=== PATIENT | male | born 1950 | race Hispanic/Latino ===

== ENCOUNTER 2024-09-06 13:36 | Inpatient (IN) | payer MEDICARE, SELFPAY ==
[2024-09-06] VITALS (17 sets, daily range): BP systolic 95–144; BP diastolic 34–78; PULSE 55–73; RESP 16–26; TEMP 36.3–36.8; O2SAT 95–100; BMI 22.5
--- NOTE | 2024-09-06 | ECHO_ITS ---
Patient Info Name: Bulmaro Cook Age: 74 years : 1950 Gender: Male Ht: 72 in Wt: 157 lbs BSA: 1.90 m2 HR: 59 bpm BP: 111 / 43 mmHg Heart Rhythm: Sinus Rhythm Technical Quality: Good Exam Date: 09/06/2024 4:00 PM Exam Location: Echo Lab Patient Status: Emergency Admit Date: 09/06/2024 Staff Ordering Physician: North Myers MD (samantha/estuardo) Air Traffic Controller: Lindsay Espana RDCS Attending Provider: Maximo Wynn MD Exam Type: CA echo doppler color flow Study Info Indications R07.9 - Chest pain, unspecified Complete two-dimensional, color flow and Doppler transthoracic echocardiogram is performed. Summary 1. Left ventricular chamber dimension is normal. 2. Left ventricular systolic function is normal, estimated at 55-60%. 3. There is mildly increased left ventricular wall thickness. 4. The left ventricular diastolic function is grade I diastolic dysfunction. 5. Right ventricular systolic function is normal. 6. Left atrial chamber dimension is mildly enlarged. 7. There is mild mitral valve regurgitation. 8. There is mild tricuspid valve regurgitation. 9. Left pleural effusion present. 10. There is moderate anterior pericardial effusion, posteriorly it is small. No echocardiographic evidence of tamponade. Left Ventricle Left ventricular chamber dimension is normal. Left ventricular systolic function is normal, estimated at 55-60%. There is mildly increased left ventricular wall thickness. Left ventricular septal wall motion is abnormal with septal motion related to bundle branch block. The left ventricular diastolic function is grade I diastolic dysfunction. Right Ventricle Right ventricular chamber dimension is normal. Right ventricular systolic function is normal. Left Atria Left atrial chamber dimension is mildly enlarged. Right Atria Right atrial chamber dimension is normal. Atrial Septum Intact interatrial septum visualized by color flow imaging. Aortic Valve The aortic valve is probable trileaflet. There is no aortic valve stenosis. There is no aortic valve regurgitation. There is mild aortic valve calcification. Pulmonic Valve The pulmonic valve is not well visualized. There is no pulmonic regurgitation. Mitral Valve There is mild mitral valve regurgitation. The mitral valve annulus is mildly calcified. Tricuspid Valve There is mild tricuspid valve regurgitation. Pericardium/Pleural Left pleural effusion present. There is moderate anterior pericardial effusion, posteriorly it is small. No echocardiographic evidence of tamponade. Inferior Vena Cava Dilated inferior vena cava with <50% collapse upon inspiration consistent with elevated right atrial pressure, 15 mmHg. Aorta The aortic root size at the sinus of Valsalva is normal. Left Ventricular Outflow Tract Name Value Normal LVOT 2D LVOT Diameter 2.0 cm LVOT Doppler LVOT Peak Gradient 4 mmHg LVOT Mean Gradient 2 mmHg LVOT VTI 17 cm LVOT VTI/AV VTI Ratio 0.5 LVOT Stroke Volume 53 ml LVOT CO 3.3 l/min LVOT CI 1.7 l/min/m2 Pulmonic Valve Name Value Normal RVOT Doppler RVOT Peak Gradient 4 mmHg PV Doppler PV Peak Gradient 7 mmHg Mitral Valve Name Value Normal MV Doppler MV Decel [place] 364 cm/s2 MV PHT 83 ms MV Area (PHT) 2.6 cm2 4.0-5.0 MV Diastolic Function MV E Peak Velocity 105 cm/s MV A Peak Velocity 109 cm/s MV E/A 1.0 MV Decel Time 287 ms MV Annular TDI MV E/e' (Septal) 17.0 <=8.0 MV E/e' (Lateral) 19.3 <=8.0 MV E/e' (Average) 18.2 Tricuspid Valve Name Value Normal TV Regurgitation Doppler TR Peak Velocity 232 cm/s TR Peak Gradient 21 mmHg Estimated PAP/RSVP RA Pressure 15 mmHg <=5 PA Systolic Pressure 36 mmHg <36 RV Systolic Pressure 36 mmHg <36 Aorta Name Value Normal Ascending Aorta Ao Root Diameter (MM) 3.1 cm Ao Root Diam Index (MM) 1.6 cm/m2 Aortic Valve Name Value Normal AV Doppler AV Peak Velocity 182 cm/s AV Peak Gradient 13 mmHg AV Mean Gradient 8 mmHg AV VTI 37 cm AV Area (Cont Eq VTI) 1.4 cm2 >=3.0 AV Area (Cont Eq Pranav) 1.7 cm2 AV Regurgitation 2D LVOT Area 3.0 cm2 Ventricles Name Value Normal LV Dimensions 2D/MM IVS Diastolic Thickness (2D) 0.9 cm 0.6-1.0 LVID Diastole (2D) 5.8 cm 4.2-5.8 LVIW Diastolic Thickness (2D) 0.9 cm 0.6-1.0 LVID Systole (2D) 4.1 cm 2.5-4.0 LVOT Diameter 2.0 cm LV Mass (2D Cubed) 199.10 g 88.00-224.00 LV Mass Index (2D Cubed) 105 g/m2 49-115 Relative Wall Thickness (2D) 0.29 LV Fractional Shortening/Ejection Fraction 2D/MM LV Fractional Shortening (2D) 29 % 25-43 LV EF (2D Teicholz) 55 % 52-72 LV Diastolic Volume (4C MOD) 99 ml LV EF (4C MOD) 62 % LV Diastolic Volume (2C MOD) 74 ml LV EF (2C MOD) 60 % LV Diastolic Volume (BP MOD) 86 ml 62-150 LV Diastolic Volume Index (BP MOD) 45 ml/m2 34-74 LV Systolic Volume (BP MOD) 35 ml 21-61 LV Systolic Volume Index (BP MOD) 18 ml/m2 11-31 LV EF (BP MOD) 59 % 52-72 LV Diastolic Length (4C) 8.1 cm LV Systolic Length (4C) 6.8 cm LV Stroke Volume (4C MOD) 62 ml Atria Name Value Normal LA Dimensions LA Dimension (MM) 5.1 cm 3.0-4.1 LA Volume (4C A-L) 61 ml LA Volume (BP A-L) 67 ml RA Dimensions RA Area (4C) 16.8 cm2 <=18.0 Report Signatures
--- NOTE | ~2024-09-06 | XR_ITS ---
XR chest 1V portable Ordering provider: Erasmo Greene MD History: 74 years Male with . CP/SHOB . Comparison: None. FINDINGS: MEDIASTINUM: The cardiac silhouette is slightly enlarged. Congestive eliza. LUNGS: No effusions or pneumothorax. Opacification in the left lung base suggestive of atelectasis ve rsus pneumonia. OTHER: No free air under the diaphragm. Degenerative changes of the spine. IMPRESSION: Left basilar atelectasis versus pneumonia. Reviewed, dictated and finalized at location A.
--- NOTE | ~2024-09-06 | US_ITS ---
Procedure: Ultrasound guided left thoracentesis. Indication: left pleural effusion Operating Physician: Darya Pacheco MD. Consent: After a detailed discussion of the procedure, risks, benefits and alternative treatment opti ons, informed consent was obtained from the patient. Time Out: A time out for procedure was performed in presence of Dr. Pacheco. The patient's identificati on was verified. Informed consent with agreement of procedure was reviewed. All necessary equipment w as available prior to procedure. Complications: None. Anesthesia: Local. Medication: 1% lidocaine locally. Procedure: Survey ultrasound of left chest was performed which was then prepped and draped in usual sterile fashion. Local anesthesia was administered. The pleural cavity was accessed and 0.6 L serous fluid was removed. The catheter was removed and sterile dressing was applied. Patient tolerated the p rocedure. The procedure was personally performed by Dr. Pacheco. Findings: Sonographic images demonstrate left pleural effusion. Impression: Successful ultrasound guided thoracentesis. Plan: Follow-up chest radiograph will be obtained. Reviewed, dictated and finalized at location A. Impression: Successful ultrasound guided thoracentesis. Plan: Follow-up chest radiograph will be obtained.
--- NOTE | ~2024-09-06 | XR_ITS ---
CHEST RADIOGRAPH CLINICAL HISTORY: post thora . COMPARISON: 09/06/2024 TECHNIQUE: Single portable view of the chest. FINDINGS The cardiomediastinal silhouette is enlarged, unchanged. Decreased left-sided pleural effusion when compared with prior study. The remainder of the lungs are clear. The left lung is fully inflated. IMPRESSION: Decreased left-sided pleural effusion, as detailed above. Reviewed, dictated and finalized at location A.
--- NOTE | ~2024-09-06 | XR_ITS ---
XR chest 1V portable Ordering provider: Hitesh Corley MD History: 74 years Male with . Pleural effusion f/u . Comparison: September 08, 2024 FINDINGS: MEDIASTINUM: The cardiac silhouette is not enlarged. LUNGS: No pneumothorax. Opacification in the left lung base is seen suggestive of atelectasis versus pneumonia. Blunting of the left costophrenic angle which may indicate minimal effusion. OTHER: No free air under the diaphragm. IMPRESSION: Left basilar atelectasis versus pneumonia. Reviewed, dictated and finalized at location A.
--- NOTE | ~2024-09-06 | CT_ITS ---
EXAMINATION: CTA chest PE protocol DATE: 09/06/2024 17:14 CDT INDICATION: Left-sided chest pain TECHNIQUE: Computed tomographic angiography (CTA) of the chest was performed with 100 mL Omnipaque-35 0 intravenous contrast. The dose-length product was 328.63 mGy-cm. Maximum intensity projection 3D-re constructions of the aorta and other arteries were constructed by the technologist on a separate work station. COMPARISON: None. FINDINGS/OBSERVATIONS: PULMONARY ARTERIES: No filling defect is identified within the main or proximal pulmonary artery. The main pulmonary artery is not enlarged. THORACIC AORTA: No aneurysmal dilatation or dissection is present. The great vessels are intact LUNGS: Large left-sided pleural effusion with adjacent compressive atelectasis, likely the source of patient's left-sided chest pain. Trace right-sided atelectasis. The remainder of the lungs are clear. MEDIASTINUM: No morphologically suspicious or pathologically enlarged lymph nodes are identified with in the mediastinum or bilateral axilla. BONES OF THE CHEST: No acute fracture. No significant degenerative disease. No lytic or blastic lesions. HEART: The heart is enlarged, without pericardial effusion. IMPRESSION: No pulmonary embolus. No thoracic aortic dissection. Large left-sided pleural effusion with adjacent compressive atelectasis. Reviewed, dictated and finalized at location A.
--- NOTE | 2024-09-06 13:43 | ECG_ITS ---
Test Date: 2024-09-06 13:49:35 Measurements Intervals [place] Rate: 58 P: -5 OH: 165 QRS: 40 QRSD: 163 T: 107 QT: 497 QTc: 491 Interpretive Statements SINUS BRADYCARDIA RIGHT BUNDLE BRANCH BLOCK CANNOT R/O SEPTAL INFARCT, AGE INDETERMINATE BASELINE ARTIFACT- I, II, III, AVR, AVL, AVF ABNORMAL ECG No previous ECG available for comparison Electronically Signed On 09-06-2024 14:50:41 CDT by Priyank Basilio D.O.
--- NOTE | 2024-09-06 13:46 | ED_ITS ---
HPI - Chest Pain General Chief Complaint: Chest Pain <Jackelin Menjivar PA-C - Last Filed: 09/06/24 18:56> Stated Complaint: Sent from Dialysis-low [id number] <Jackelin Menjivar PA-C - Last Filed: 09/06/24 18:56> Time Seen by Provider: 09/06/24 13:46 <Jackelin Menjivar PA-C - Last Filed: 09/06/24 18:56> Focused HPI: This is a 74 year old male that presents to the ER for chest pain. Reports he was recently admitted to another facility ([facility]) and ended up having to have a blood transfusion. Reports he went to dialysis today and his blood pressure dropped. Reports chest pain, headaches, dizziness, shortness of breath. GENERAL: Chronically ill-appearing, well-nourished, and in no acute distress. HEAD: Normocephalic, atraumatic. CHEST: Clear to auscultation. ?No respiratory distress. HEART: Regular rate and rhythm.? NEURO: ?Alert and oriented x3. Patient screened in triage and initial orders placed.? ?Additional care and disposition to be based upon?diagnostic testing and treatment. <Jackelin Menjivar PA-C - Last Filed: 09/06/24 18:56> Source: patient, family (daughter ) and old records reviewed <Maximo Wynn MD - Last Filed: 09/06/24 15:39> Limitations: language barrier and other (daughter translates) <Maximo Wynn MD - Last Filed: 09/06/24 15:39> History of Present Illness HPI narrative: 74 male with a history of ESRD on hemodialysis, diabetes recently discharged from [facility] in [place] a wk ago here with a complaints of left sided chest pain which is been ongoing for past 1 wk since he got discharged from the hospital , pain is constant mostly on the left , increase in pain with movement , While he was in the dialysis this morning after the 7 th lt started to feeing dizzy , and having chest pain.daughter also mentioned that he received blood transfusion while he was in the hospital . He had anemia work up while he was in the hospital and was told that he is not producing blood .denies any fever or chills Pt use to be functional untill 2 wks ago and since then he has been progressively getting worse. <Maximo Wynn MD - Last Filed: 09/06/24 15:39> MD complaint: chest pain <Maximo Wynn MD - Last Filed: 09/06/24 15:39> Onset (ago): week(s) (1) <Maximo Wynn MD - Last Filed: 09/06/24 15:39> Timing of current episode: constant <Maximo Wynn MD - Last Filed: 09/06/24 15:39> Pain location: left chest <Maximo Wynn MD - Last Filed: 09/06/24 15:39> Pain radiation: left arm <Maximo Wynn MD - Last Filed: 09/06/24 15:39> Severity: moderate <Maximo Wynn MD - Last Filed: 09/06/24 15:39> Quality: aching <Maximo Wynn MD - Last Filed: 09/06/24 15:39> Relieving factors: nothing <Maximo Wynn MD - Last Filed: 09/06/24 15:39> Exacerbating factors: movement <Maximo Wynn MD - Last Filed: 09/06/24 15:39> Context: recent illness <Maximo Wynn MD - Last Filed: 09/06/24 15:39> Related Data Home Medications: Home Medications ?Medication ?Instructions ?Recorded ?Confirmed ?Last Taken ?Type allopurinol 100 mg tablet See Rx Instructions .Route .COMPLEX 09/06/24 09/06/24 09/06/24 08:00 History 100 mg amiodarone 400 mg tablet 200 mg PO DAILY 09/06/24 09/06/24 09/06/24 08:00 History 200 mg apixaban 5 mg tablet (Eliquis) 5 mg PO Q12H 09/06/24 09/06/24 09/06/24 08:00 History 5 mg atorvastatin 20 mg tablet (Lipitor) 20 mg PO DAILY 09/06/24 09/06/24 09/05/24 22:00 History 20 mg calcitriol 0.25 mcg capsule 0.25 mcg PO BID 09/06/24 09/06/24 09/06/24 08:00 History 0.25 mcg doxazosin 4 mg tablet (Cardura) 4 mg PO QPM 09/06/24 09/06/24 09/05/24 22:00 History 4 mg ferrous sulfate 325 mg (65 mg 325 mg PO DAILY 09/06/24 09/06/24 09/06/24 08:00 History iron) tablet (iron) 325 mg furosemide 40 mg tablet 60 mg PO BID 09/06/24 09/06/24 09/06/24 08:00 History 60 mg metoprolol tartrate 25 mg tablet 25 mg PO DAILY 09/06/24 09/06/24 09/05/24 08:00 History 25 mg pantoprazole 40 mg tablet,delayed 40 mg PO QAM 09/06/24 09/06/24 09/06/24 08:00 History release (Protonix) 40 mg sodium bicarbonate 650 mg tablet 650 mg PO DAILY 09/06/24 09/06/24 09/06/24 08:00 History 650 mg vitamin B complex-vitamin C-folic 1 tablet PO DAILY 09/06/24 09/06/24 09/05/24 10:00 History acid 800 mcg chewable tablet 1 tablet (Dialyvite 800) <Jackelin Menjivar PA-C - Last Filed: 09/06/24 18:56> Allergies/Adverse Reactions: Allergies Allergy/AdvReac Type Severity Reaction Status Date / Time No Known Allergies Allergy Unverified 09/06/24 13:40 <Jackelin Menjivar PA-C - Last Filed: 09/06/24 18:56> Review of Systems 2 Review of Systems: All systems reviewed & are unremarkable except as noted in HPI and below <Maximo Wynn MD - Last Filed: 09/06/24 15:39> Constitutional: Constitutional: Reports no additional constitutional complaints <Maximo Wynn MD - Last Filed: 09/06/24 15:39> Eyes: Eyes: Reports no additional eye complaints <Maximo Wynn MD - Last Filed: 09/06/24 15:39> ENT: Reports system reviewed and no additional complaints, except as documented <Maximo Wynn MD - Last Filed: 09/06/24 15:39> Cardiovascular: Cardiovascular: Reports as per HPI <Maximo Wynn MD - Last Filed: 09/06/24 15:39> Respiratory: Respiratory: Reports as per HPI <Maximo Wynn MD - Last Filed: 09/06/24 15:39> Gastrointestinal: Gastrointestinal: Reports no additional gastrointestinal complaints <Maximo Wynn MD - Last Filed: 09/06/24 15:39> Musculoskeletal: Musculoskeletal: Reports no additional musculoskeletal complaints <Maximo Wynn MD - Last Filed: 09/06/24 15:39> Integumentary/Breasts: Skin/Breast: Reports system reviewed and no additional complaints, except as docu <Maximo Wynn MD - Last Filed: 09/06/24 15:39> Neurologic: Reports system reviewed and no additional complaints, except as documented <Maximo Wynn MD - Last Filed: 09/06/24 15:39> Psychiatric: Psychiatric: Reports no additional psychiatric complaints < Maximo Wynn MD - Last Filed: 09/06/24 15:39> PMFSH Past Medical History Medical History: Medical History (Updated 09/06/24 @ 18:55 by Jackelin Menjivar PA-C) History of end stage renal disease <Jackelin Menjivar PA-C - Last Filed: 09/06/24 18:56> Family History Family History: Family History (Updated 09/06/24 @ 18:37 by Jackelin Franco, ZACHARY) Father Myocardial infarct Sibling Myocardial infarct Mother Dementia <Jackelin Menjivar PA-C - Last Filed: 09/06/24 18:56> Social History Social History: Social History Smoking status: Former smoker Additional smoking assessment comments: quit many years ago Alcohol intake: never Substance use: never Do You Feel Safe in your Home?: Yes Lack of Transportation: No Lack of Food: Never True Current Housing: I Have Housing Concerned About Future Housing: No Difficulty Paying Gas/Electric Bills: No Difficulty Paying for Meds: No Currently Unemployed: No Education: High School Diploma/GED Difficulty w/ Childcare or Family Care: No Spiritual care concerns: No <Jackelin Menjivar PA-C - Last Filed: 09/06/24 18:56> Exam 2 Narrative: GENERAL: Well-appearing, thin, and in no acute distress. HEAD: Normocephalic, atraumatic. EYES: PERRLA and EOMI. NECK: Supple. CHEST: Clear to auscultation. No respiratory distress. HEART: Regular rate and rhythm. No murmur heard. Normal peripheral pulses. ABDOMEN: Soft, nontender, nondistended, normal active bowel sounds. EXTREMITIES: Normal range of motion. No edema. SKIN: Warm, dry, no rash. NEURO: No focal deficits. Alert and oriented x3. PSYCH: Normal mood and affect. <Maximo Wynn MD - Last Filed: 09/06/24 15:39> Course Course Emergency Course: Upon arrival his EKG showed minor ST elevation in the inferior leads did consult Dr. Myers ,,who was here to see the pt , does not require any acute intervention at this , i discusssed lab , CXR findings with pt and his daughter , agreed with admission. Notified Rebecca will accept the pt. <Maximo Wynn MD - Last Filed: 09/06/24 15:39> Vital Signs Vital signs: Vital Signs Temperature 97.5 F L 09/06/24 13:48 Pulse Rate 59 L 09/06/24 13:48 Respiratory Rate 16 09/06/24 13:48 Blood Pressure 95/35 L 09/06/24 13:48 Pulse Oximetry 98 09/06/24 13:48 Temperature 97.6 F 09/06/24 17:53 Pulse Rate 65 09/06/24 18:00 Respiratory Rate 18 09/06/24 17:53 Blood Pressure 107/34 L 09/06/24 17:53 Pulse Oximetry 99 09/06/24 17:53 Oxygen Delivery Room Air 09/06/24 13:59 <Jackelin Menjivar PA-C - Last Filed: 09/06/24 18:56> Vital Signs Temperature 97.5 F L 09/06/24 13:48 Pulse Rate 59 L 09/06/24 13:48 Respiratory Rate 16 09/06/24 13:48 Blood Pressure 95/35 L 09/06/24 13:48 Pulse Oximetry 98 09/06/24 13:48 Temperature 97.6 F 09/06/24 17:53 Pulse Rate 65 09/06/24 18:00 Respiratory Rate 18 09/06/24 17:53 Blood Pressure 107/34 L 09/06/24 17:53 Pulse Oximetry 99 09/06/24 17:53 Oxygen Delivery Room Air 09/06/24 13:59 <Maximo Wynn MD - Last Filed: 09/06/24 15:39> MDM - Chest Pain Differential Diagnosis Differential diagnosis: Likely unstable angina pectoris, atypical chest pain and st elevation myocardial infarction <Maximo Wynn MD - Last Filed: 09/06/24 15:39> Medical Records Data Attestation: I reviewed the patient's medical records. <Maximo Wynn MD - Last Filed: 09/06/24 15:39> Lab Data Attestation: I reviewed the patient's lab results. <Maximo Wynn MD - Last Filed: 09/06/24 15:39> Result diagrams: 09/06/24 14:13 09/06/24 14:13 <Jackelin Menjivar PA-C - Last Filed: 09/06/24 18:56> Labs: Lab Results 09/06/24 Range/Units 14:13 WBC 13.2 H (4.5-10.0) K/mm3 RBC 2.36 L (4.6-6.20) M/mm3 Hgb 7.2 L (14.0-18.0) g/dL Hct 23.2 L (42.0-52.0) % MCV 98.3 (80-100) fl MCH 30.5 (26-34) pg MCHC 31.0 L (32-36) g/dl RDW 17.3 H (11.5-14.5) % Plt Count 292 (150-375) k/mm3 MPV 9.4 (7.4-10.4) fl Immature Gran % (Auto) 0.9 H (0-0.5) % Neut % (Auto) 93.6 H (45.5-73.1) % Lymph % (Auto) 1.6 L (18.3-44.2) % [place] % (Auto) 3.6 (2.6-8.5) % Eos % (Auto) 0.1 (0-4.4) % Baso % (Auto) 0.2 (0.2-1.2) % Lymph # (Auto) 0.21 L (0.9-3.2) K/mm3 [place] # (Auto) 0.5 (0.1-0.6) K/mm3 Eos # (Auto) 0.0 (0-0.3) K/mm3 Baso # (Auto) 0.0 (0.0-0.1) K/mm3 Abs Immat Gran (auto) 0.12 H (0.00-0.031) K/mm3 Absolute Neuts (auto) 12.3 H (1.3-6.7) K/mm3 Absolute Nucleated RBC 0.000 (0.0-0.012) K/mm3 Band Neutrophils % 0 (0-6) % Nucleated RBC % 0.0 (0.0-0.2) % Platelet Estimate Adequate (Adequate) Clumped Platelets Present Hypochromasia 1+ Anisocytosis 2+ Schistocytes None seen PT 20.4 H (11.1-14.7) Seconds INR 1.7 APTT 37.9 H (22.3-36.8) Seconds Sodium 131 L (137-145) mmol/L Potassium 3.6 (3.4-5.0) mmol/L Chloride 91 L (98-107) mmol/L Carbon Dioxide 26 (22-30) mmol/L Anion Gap 14 H (4-12) mmol/L BUN 105 H (9-20) mg/dL Creatinine 5.64 H (0.7-1.3) mg/dL Estim Creat Clear Calc 10 ml/min Estimated GFR 10 L (59 - ) Glucose 167 H (65-110) mg/dL Calcium 8.8 (8.4-10.2) mg/dL Iron 24 L (49-181) ug/dL TIBC 212 L (265-497) ug/dL % Saturation Pending Ferritin Pending Total Bilirubin 0.8 (0.2-1.3) mg/dL AST 29 (17-59) U/L ALT 39 (6-50) U/L Alkaline Phosphatase 169 H (38-126) U/L Troponin I < 0.012 (0.000-0.034) ng/mL Total Protein 6.0 L (6.3-8.2) g/dL Albumin 3.4 L (3.5-5.1) g/dL Lipase 64 (23-300) U/L <Jackelin L. Menjivar, PA-C - Last Filed: 09/06/24 18:56> Lab Results 09/06/24 Range/Units 14:13 WBC 13.2 H (4.5-10.0) K/mm3 RBC 2.36 L (4.6-6.20) M/mm3 Hgb 7.2 L (14.0-18.0) g/dL Hct 23.2 L (42.0-52.0) % MCV 98.3 (80-100) fl MCH 30.5 (26-34) pg MCHC 31.0 L (32-36) g/dl RDW 17.3 H (11.5-14.5) % Plt Count 292 (150-375) k/mm3 MPV 9.4 (7.4-10.4) fl Immature Gran % (Auto) 0.9 H (0-0.5) % Neut % (Auto) 93.6 H (45.5-73.1) % Lymph % (Auto) 1.6 L (18.3-44.2) % [place] % (Auto) 3.6 (2.6-8.5) % Eos % (Auto) 0.1 (0-4.4) % Baso % (Auto) 0.2 (0.2-1.2) % Lymph # (Auto) 0.21 L (0.9-3.2) K/mm3 [place] # (Auto) 0.5 (0.1-0.6) K/mm3 Eos # (Auto) 0.0 (0-0.3) K/mm3 Baso # (Auto) 0.0 (0.0-0.1) K/mm3 Abs Immat Gran (auto) 0.12 H (0.00-0.031) K/mm3 Absolute Neuts (auto) 12.3 H (1.3-6.7) K/mm3 Absolute Nucleated RBC 0.000 (0.0-0.012) K/mm3 Band Neutrophils % 0 (0-6) % Nucleated RBC % 0.0 (0.0-0.2) % Platelet Estimate Adequate (Adequate) Clumped Platelets Present Hypochromasia 1+ Anisocytosis 2+ Schistocytes None seen PT 20.4 H (11.1-14.7) Seconds INR 1.7 APTT 37.9 H (22.3-36.8) Seconds Sodium 131 L (137-145) mmol/L Potassium 3.6 (3.4-5.0) mmol/L Chloride 91 L (98-107) mmol/L Carbon Dioxide 26 (22-30) mmol/L Anion Gap 14 H (4-12) mmol/L BUN 105 H (9-20) mg/dL Creatinine 5.64 H (0.7-1.3) mg/dL Estim Creat Clear Calc 10 ml/min Estimated GFR 10 L (59 - ) Glucose 167 H (65-110) mg/dL Calcium 8.8 (8.4-10.2) mg/dL Iron 24 L (49-181) ug/dL TIBC 212 L (265-497) ug/dL % Saturation Pending Ferritin Pending Total Bilirubin 0.8 (0.2-1.3) mg/dL AST 29 (17-59) U/L ALT 39 (6-50) U/L Alkaline Phosphatase 169 H (38-126) U/L Troponin I < 0.012 (0.000-0.034) ng/mL Total Protein 6.0 L (6.3-8.2) g/dL Albumin 3.4 L (3.5-5.1) g/dL Lipase 64 (23-300) U/L <Maximo Wynn MD - Last Filed: 09/06/24 15:39> Imaging Data Radiologist's impression: ITS Impressions Chest X-Ray 09/06/24 14:38 IMPRESSION: Left basilar atelectasis versus pneumonia. <Maximo Wynn MD - Last Filed: 09/06/24 15:39> ECG Data EKG #1: ECG completion date: 09/06/24 <Maximo Wynn MD - Last Filed: 09/06/24 15:39> ECG completion time: 13:49 <Maximo Wynn MD - Last Filed: 09/06/24 15:39> EKG Interpretation: bradycardia (58), sinus rhythm, normal QRS, NL axis and no acute changes (minor ST elevation in the inferior leads .) <Maximo Wynn MD - Last Filed: 09/06/24 15:39> Discharge Plan Discharge Clinical Impression: ESRD on dialysis Chest pain Qualifiers: Chest pain type: unspecified Qualified Code(s): R07.9 - Chest pain, unspecified Anemia Qualifiers: Anemia type: unspecified type Qualified Code(s): D64.9 - Anemia, unspecified <Jackelin Menjivar PA-C - Last Filed: 09/06/24 18:56> Patient Disposition: Still a Patient <Jackelin Menjivar PA-C - Last Filed: 09/06/24 18:56> Condition: Stable <Jackelin Menjivar PA-C - Last Filed: 09/06/24 18:56> Time of Disposition: 15:39 <Jackelin Menjivar PA-C - Last Filed: 09/06/24 18:56> 15:39 <Maximo Wynn MD - Last Filed: 09/06/24 15:39>
[2024-09-06 14:19] LABS: Basophils Percent Auto 0.2 % (0.2-1.2); Eosinophils Percent Auto 0.1 % (0-4.4); Hematocrit 23.2 % (42.0-52.0); Hemoglobin 7.2 g/dL (14.0-18.0); Immature Granulocyte Absolute 0.12 K/mm3 (0.00-0.031); Immature Granulocyte Percent A 0.9 % (0-0.5); Lymphocytes Absolute Auto 0.21 K/mm3 (0.9-3.2); Lymphocytes Percent Auto 1.6 % (18.3-44.2); Mean Corpuscular Hemoglobin 30.5 pg (26-34); Mean Corpuscular Volume 98.3 fl (80-100); Mean Platelet Volume 9.4 fl (7.4-10.4); Monocytes Absolute Auto 0.5 K/mm3 (0.1-0.6); Monocytes Percent Auto 3.6 % (2.6-8.5); Neutrophils Absolute Auto 12.3 K/mm3 (1.3-6.7); Neutrophils Percent Auto 93.6 % (45.5-73.1); Platelet Count Result 292 k/mm3 (150-375); Red Blood Count 2.36 M/mm3 (4.6-6.20); Red Cell Distribution Width 17.3 % (11.5-14.5); White Blood Count 13.2 K/mm3 (4.5-10.0)
[2024-09-06 14:30] LABS: Alanine Aminotransferase 39 U/L (6-50); Albumin Level 3.4 g/dL (3.5-5.1); Alkaline Phosphatase 169 U/L (38-126); Anion Gap 14 mmol/L (4-12); Aspartate Amino Transferase 29 U/L (17-59); Bilirubin,Total 0.8 mg/dL (0.2-1.3); Blood Urea Nitrogen 105 mg/dL (9-20); Calcium 8.8 mg/dL (8.4-10.2); Carbon Dioxide 26 mmol/L (22-30); Chloride 91 mmol/L (98-107); Estimated CRCL calculation 10 ml/min; Estimated Glomerular Filt Rate 10; Glucose 167 mg/dL (65-110); Lipase 64 U/L (23-300); Potassium 3.6 mmol/L (3.4-5.0); Sodium 131 mmol/L (137-145)
[2024-09-06 14:35] LABS: INR 1.7; Prothrombin Time 20.4 Seconds (11.1-14.7)
[2024-09-06 14:36] LABS: Partial Thromboplastin Time 37.9 Seconds (22.3-36.8)
[2024-09-06 14:40] LABS: Platelet Clumps Present; Platelet Estimate Adequate (Adequate)
[2024-09-06 14:41] LABS: Anisocytosis 2+; Hypochromasia 1+; Schistocytes None Seen
[2024-09-06 14:42] LABS: Band Neutrophils Percent 0 % (0-6)
[2024-09-06 14:43] LABS: Troponin I < 0.012 ng/mL (0.000-0.034)
--- NOTE | 2024-09-06 15:15 | P.CONCA_ITS ---
Assessment and Plan Assessment and plan (1) Chest pain: Code(s): R07.9 - Chest pain, unspecified Status: Acute Plan 74-year-old man with diabetes and ESRD on hemodialysis was brought in by his daughter for labile blood pressures who was also found to have chest pain Chest pain - his clinical presentation does not correlate very well with ischemia; however, he does have risk factors - recommend repeating his ECG and trending his troponin to peak - would hold off on heparinization for now given his previous severe anemia - would start asa 81mg PO daily after 324mg load - would also start atorvastatin 80mg qhs - obtain TTE History of Present Illness History of Present Illness Consult date/time: 09/06/24 15:15 Requesting physician: Jackelin Menjivar PA-C Consult reason: chest pain Reason For Visit: Sent from Dialysis-low [id number] Narrative: 74-year-old man with diabetes and ESRD on hemodialysis was brought in by his daughter for labile blood pressures. The patient's daughter who has been taking care of him provided Cook Islander translation. she states that hemodialysis is relatively new for the patient and he has been having very labile blood pressures. She also endorsed that the patient was recently admitted at [facility] where he was having chest pain that is also left-sided however now the chest pain is different in that it is on both sides of his chest. The chest pain significantly worsens on palpation. There are also significant concerns of shortness of breath with exertion as well as lightheadedness. Daughter states that the patient has previously been functional and is able to ambulate but since starting hemodialysis has been having chest pain, shortness of breath, as well as lightheadedness. There is also complain of lower extremity swelling. Daughter also explained that at [facility] there were significant concerns of how anemic the patient was and upon further questioning, the daughter does not know if the patient has any bleeding history however is under the impression that the patient has low production. Review of Systems 2 Cardiovascular: Cardiovascular: Reports as per HPI Respiratory: Respiratory: Reports as per HPI Meds Home Medications and Allergies Allergies Allergy/AdvReac Type Severity Reaction Status Date / Time No Known Allergies Allergy Unverified 09/06/24 13:40 Vital Signs Vital Signs - 24 hr 09/06/24 13:48 09/06/24 13:55 09/06/24 13:59 Temperature 36.4 C L Pulse Rate 59 L 59 L Respiratory Rate 16 26 H Blood Pressure 95/35 L 111/43 L Pulse Oximetry 98 96 100 Oxygen Delivery Room Air Room Air Exam 2 Const: Other: Ill-appearing HENMT: Mouth: Yes moist mucous membranes Eyes: EOM: EOMs intact bilaterally Neck: Neck: no JVD Resp: Effort & Inspection: normal respiratory effort Auscultation: clear to auscultation bilaterally Cardio: Rate: regular rate Rhythm: regular rhythm Heart sounds: Murmur heart sound present Other: tenderness across the precordium GI: GI Palp: Yes Soft to palpation Extrem: General: edema and pedal edema Results Labs and Meds 09/06/24 14:13 09/06/24 14:13 Lab results: Cardiac Enzymes 09/06/24 Range/Units 14:13 AST 29 (17-59) U/L Troponin I < 0.012 (0.000-0.034) ng/mL Coagulation 09/06/24 Range/Units 14:13 PT 20.4 H (11.1-14.7) Seconds APTT 37.9 H (22.3-36.8) Seconds CBC 09/06/24 Range/Units 14:13 WBC 13.2 H (4.5-10.0) K/mm3 RBC 2.36 L (4.6-6.20) M/mm3 Hgb 7.2 L (14.0-18.0) g/dL Hct 23.2 L (42.0-52.0) % Plt Count 292 (150-375) k/mm3 Lymph # (Auto) 0.21 L (0.9-3.2) K/mm3 Isabella # (Auto) 0.5 (0.1-0.6) K/mm3 Eos # (Auto) 0.0 (0-0.3) K/mm3 Baso # (Auto) 0.0 (0.0-0.1) K/mm3 Comprehensive Metabolic Panel 09/06/24 Range/Units 14:13 Sodium 131 L (137-145) mmol/L Potassium 3.6 (3.4-5.0) mmol/L Chloride 91 L (98-107) mmol/L Carbon Dioxide 26 (22-30) mmol/L BUN 105 H (9-20) mg/dL Creatinine 5.64 H (0.7-1.3) mg/dL Glucose 167 H (65-110) mg/dL Calcium 8.8 (8.4-10.2) mg/dL AST 29 (17-59) U/L ALT 39 (6-50) U/L Alkaline Phosphatase 169 H (38-126) U/L Total Protein 6.0 L (6.3-8.2) g/dL Albumin 3.4 L (3.5-5.1) g/dL Patient Weight 09/06/24 23:59 Weight 71.3 kg
--- OUTSIDE RECORDS SUMMARY | 2024-09-06 15:37 | XMS_ITS | Encounter Summary ---
Author Organization [facility] - [facility] Address [address] [place] [address] Care Team Providers Care Leather Goods Maker Name Role Phone CarlaaleshaChandler Kothari DO Primary Care Provide r Encounter Details Date Type Department Care Team (Late st Contact Info) Description 07/28/2024 [employer] Message Enc [facility] Medical [facility] [address] [address] Filippo [facility] Provider Orders Social History Tobacco Use Types Packs/Day Years Used Date Smoking Tobacco: Never Smokeless Tobacco: Never Alcohol Use Standard Drinks/Week Comments Never 0 (1 standard drink = 0.6 oz pur e alcohol) [facility] Utilities Answer Date Recorded In the past 12 months has [facility] No [employer], gas, oil, or water [employer] threatened to shut off services in your home? No 05/28/2024 Humiliation, Afraid, Rape, and Kick questionnair e Answer Date Recorded Within the last year, have y ou been afraid of your partner or ex-partner? No 05/28/2024 Within the last year, have y ou been humiliated or emotionally abused in other ways by your partner or ex-partner? No Within the last year, have y ou been kicked, hit, slapped, or otherwise physically hurt by your partner or ex-partner? No 05/28/2024 Within the last year, have y ou been raped or forced to have any kind of sexual activity by your partner or ex-partner? No 05/28/2024 Social Connection and Isolation Panel [NHANES] A nswer Date Recorded In a typical week, how many times do you talk on the phone with family, friends, or neighbors? Patient declined 10/10/2022 How often do you get togethe r with friends or relatives? Patient declined 10/10/2022 How often do you attend sabianist or pentecostalism serv ices? Patient declined 10/10/2022 Do you belong to any clubs o r organizations such as sabianist groups, unions, fraternal or athletic groups, or school groups? Patient declined 10/10/2022 How often do you attend meet ings of the clubs or organizations you belong to? Patient declined 10/10/2022 Are you , , di vorced, , never , or living with a partner? 10/10/2022 AUDIT-C Answer Date Recorded Q1: How often do you have a drink containing alcohol? Never 10/10/2022 Q2: How many drinks containi ng alcohol do you have on a typical day when you are drinking? Patient does not drink Q3: How often do you have si x or more drinks on one occasion? Never 10/10/2022 Overall Financial Resource Strain (CARDIA) Answe r Date Recorded How hard is it for you to pa y for the very basics like food, housing, medical care, and heating? Not hard at all 05/28/2024 PHQ-2 Answer Date Recorded Patient Health Questionnaire-2 Score 0 07/26/2024 [facility] of Occupat ional Health - Occupational Stress Questionnaire Answer Date Recorded Do you feel stress - tense, restless, nervous, or anxious, or unable to sleep at night because your mind is troubled all the time - these days? Not at all 10/10/2022 Exercise Vital Sign Answer Date Recorde d On average, how many days pe r week do you engage in moderate to strenuous exercise (like a brisk walk)? Patient declined On average, how many minutes do you engage in exercise at this level? Patient declined 10/10/2022 Hunger Vital Sign Answer Date Recorded Within the past 12 months, y ou worried that your food would run out before you got the money to buy more. Never true 05/28/20 24 Within the past 12 months, t he food you bought just didn't last and you didn't have money to get more. Never true 05/28/2024 PRAPARE - Transportation Answer Date Re corded In the past 12 months, has l ack of transportation kept you from medical appointments or from getting medications? No 05/03 In the past 12 months, has l ack of transportation kept you from meetings, work, or from getting things needed for daily living? No 05/28/2024 Housing Stability Vital Sign Answer [place] Recorded In the last 12 months, was t here a time when you were not able to pay the mortgage or rent on time? No 10/10/2022 In the last 12 months, how many places have you lived? 1 10/10/2022 In the last 12 months, was t here a time when you did not have a steady place to sleep or slept in a correction (including now)? No 10/10/2022 Housing Stability Vital Sign Answer [place] Recorded In the last 12 months, was t here a time when you were not able to pay the mortgage or rent on time? No 05/28/2024 In the past 12 months, how m any times have you moved where you were living? 0 05/28/2024 At any time in the past 12 m [facility], were you homeless or living in a correction (including now)? 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 Answer Date of Assessment Author Status No 05/28/2024 12:21 AM EXTRA HAND Gralewski, Derian M, RN Active * Do you have serious difficulty walking or climbing stairs? Answer Date of Assessment Author Status No 05/28/2024 12:21 AM Derian Villalobos RN Active * Do you have difficulty dressing or bathing? Answer Date of Assessment Author Status No 05/28/2024 12:21 AM Derian Villalobos RN Active * Because of a physical, mental, or emotional condition, do you have difficulty doing errands alone such as visiting a doctor's office or shopping? Answer Date of Assessment Author Status No 05/28/2024 12:21 AM Derian Villalobos RN Active documented as of this encounter Mental Status * Because of a physical, mental, or emotional condition, do you have serious difficulty concentrating, remembering, or making decisions? Answer Entry Date Author Status No 05/28/2024 12:21 AM Derian Villalobos RN Active documented in this encounter Plan of Treatment Upcoming Encounters Date Type Department Care Team (Late st Contact Info) Description 10/04/2024 11:00 AM CDT Office Visit [facility], [address] [address] Anika Kruger APRN [facility] [address] [place] [id number] 10/05/2024 9:45 AM CDT Office Visit [facility], [address] [place] [address] Chayo Segura PA 3 [facility] [address] [place], [place] [id number] documented as of this encounter Goals Goal Patient Goal Type Associated Problems Recent Progress Patient-Stated? Author Patient will return to prior living situation and remain independent in ADLs upon discharge from [facility] General Aline Russell RN Health - patient able to perform ADLs independently Lifestyle No El Vaughn RN Family - family caregiver with be involved in care transitions and discharge planning Lifestyle No Abby Eng, RN documented as of this encounter Visit Diagnoses Not on filedocumented in this encounter Additional Health Concerns Assessment Noted Time PHQ-9 Depression Total Score: 0 03/14/20 22 3:10 PM CDT documented as of this encounter Care Teams Leather Goods Maker Relationship Specialty Start Date End Date Chandler Geronimo DO [address] [place] [address] PCP - General FAMILY PRACTICE 05/29/21 documented as of this encounter
--- OUTSIDE RECORDS SUMMARY | 2024-09-06 15:37 | XMS_ITS | Encounter Summary ---
Author Organization [facility] - [facility] Address [address] [place] [address] Care Team Providers Care Live Hanger Name Role Phone CarlaaleshaCarleen Kotharirick Primary Care Provide r Encounter Details Date Type Department Care Team (Late st Contact Info) Description 09/01/2024 MyChart Message Enc [facility] Medical Group Multispecialty Care - [facility] [address] [facility], [facility] [address] [place] [address] David Hamilton MD 3 [facility] [place] [address] [place] [address] question Social History Tobacco Use Types Packs/Day Years Used Date Smoking Tobacco: Never Smokeless Tobacco: Never Alcohol Use Standard Drinks/Week Comments Never 0 (1 standard drink = 0.6 oz pur e alcohol) [facility] Utilities Answer Date Recorded In the past 12 months has e electric, gas, oil, or water company threatened to shut off services in your home? No 08/24/2024 Humiliation, Afraid, Rape, and Kick questionnair e Answer Date Recorded Within the last year, have y ou been afraid of your partner or ex-partner? No 08/24/2024 Within the last year, have y ou been humiliated or emotionally abused in other ways by your partner or ex-partner? No Within the last year, have y ou been kicked, hit, slapped, or otherwise physically hurt by your partner or ex-partner? No 08/24/2024 Within the last year, have y ou been raped or forced to have any kind of sexual activity by your partner or ex-partner? No 08/24/2024 Social Connection and Isolation Panel [NHANES] A nswer Date Recorded In a typical week, how many times do you talk on the phone with family, friends, or neighbors? Patient declined 10/10/2022 How often do you get togethe r with friends or relatives? Patient declined 10/10/2022 How often do you attend episcopalian or anglican serv ices? Patient declined 10/10/2022 Do you belong to any clubs o r organizations such as episcopalian groups, unions, fraternal or athletic groups, or [...] care, and heating? Not hard at all 08/24/2024 PHQ-2 Answer Date Recorded Patient Health Questionnaire-2 Score 0 07/26/2024 [facility] of Occupat ional Health - Occupational Stress [...] the money to buy more. Never true 08/25/19 25 Within the past 12 months, t he food you bought just didn't last and you didn't have money to get more. Never true 08/24/2024 PRAPARE - Transportation Answer Date Re corded In the past 12 months, has l ack of transportation kept you from medical appointments or from getting medications? No 08/01 In the past 12 months, has l ack of transportation kept you from meetings, work, or from getting things needed for daily living? No 08/24/2024 Housing Stability Vital Sign Answer [place] [...] place to sleep or slept in a fdc (including now)? No 10/10/2022 Housing Stability Vital Sign Answer [place] Recorded In the last 12 months, was t here a time when you were not able to pay the mortgage or rent on time? No 08/24/2024 In the past 12 months, how m any times have you moved where you were living? 0 08/24/2024 At any time in the past 12 m [facility], were you homeless or living in a fdc (including now)? 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 Answer Date of Assessment Author Status No 08/24/2024 10:42 PM Chandler Gipson RN Active * Do you have serious difficulty walking or climbing stairs? Answer Date of Assessment Author Status No 08/24/2024 10:42 PM Chandler Gipson RN Active * Do you have difficulty dressing or bathing? Answer Date of Assessment Author Status No 08/24/2024 10:42 PM CDT Chandler Chapman RN Active * Because of a physical, mental, or emotional condition, do you have difficulty doing errands alone such as visiting a doctor's office or shopping? Answer Date of Assessment Author Status No 08/24/2024 10:42 PM Chandler Gipson RN Active documented as of this encounter Mental Status * Because of a physical, mental, or emotional condition, do you have serious difficulty concentrating, remembering, or making decisions? Answer Entry Date Author Status No 08/24/2024 10:42 PM Chandler Gipson RN Active documented in this encounter Plan of Treatment Upcoming Encounters Date Type Department Care Team (Late st Contact Info) Description 10/04/2024 11:00 AM CDT Office Visit [facility] [address] [address] Anika Kruger APRN [facility] [address] [place] [address] 10/05/2024 9:45 AM CDT Office Visit [facility], [facility] [address] [place] [address] Chayo Segura PA 3 [facility] [address] [place] [address] documented as of this encounter Goals Goal Patient Goal Type Associated Problems Recent Progress Patient-Stated? Author Patient will return to prior living situation and remain independent in ADLs upon discharge from hospital General Aline Russell, RN Health - patient able to perform ADLs independently Lifestyle El Robbins, intelligence applications - family caregiver with be involved in care transitions and discharge planning Lifestyle No Abby Eng RN documented as of this encounter Visit Diagnoses Not on filedocumented in this encounter Additional Health Concerns Assessment Noted Time PHQ-9 Depression Total Score: 0 03/14/20 22 3:10 PM CDT documented as of this encounter Care Teams Live Hanger Relationship Specialty Start Date End Date Chandler Geronimo DO [address] [place] [address] PCP - General FAMILY PRACTICE 05/29/21 documented as of this encounter
--- OUTSIDE RECORDS SUMMARY | 2024-09-06 15:37 | XMS_ITS ---
LVOTpkPG 3 mmHg LVOTmnPG 2 mmHg LVOTpkVel 92.6 cm/s (70-110) LVOT SV 71 ml LVOT TVI 22.5 cm AV Forward Flow AV TVI 42.7 cm AV pkPG 13 mmHg AV pkVel 177 cm/s (100-170)* Area (TVI) 1.65 cm2 (3-5)* AV mnPG 7 mmHg Area (Pranav) 1.64 cm2 (3-5)* MV Regurg Flow MV TVI 163 cm MV pkPG 96 mmHg MV mnPG 64 mmHg MV pkVel 489 cm/s (60-130)* MV mnVel 374 cm/s TV Regurg Flow TV pkPG 27 mmHg TV pkVel 258 cm/s (30-70)* Aortic Valve Aortic Valve Ar 0.88 Aortic Valve Ve 0.52 <Electronic Signature> 08/26/2024 01:54 PM Ernst Good M.D. Ernst Good MD ECHO Final Res ult * (ABNORMAL) HEMOGLOBIN, GLYCOSYLATED (08/25/2024 6:44 AM CDT) Pathologist [facility] HGB A1C 5.9(H) <5.7 % 08/25/2024 9:03 AM CDT [facility] Comment: ADA GUIDELINES 2010 5.7 TO 6.4% INCREASED RISK OF DIABETES > OR = 6.5% CONSISTENT WITH DIABETES ESTIMATED AVG GLUCOSE 123 mg/dL 08/25/2024 9:03 AM CDT [facility] 08/25/2024 6:44 AM CDT Joann Sherman NP LABORATORY Final Result [facility] [address] [place] [address], * (ABNORMAL) PRO-BRAIN NATRIURETIC PEPTIDE (08/24/2024 8:14 PM CDT) Pathologist [facility] PRO-B TYPE NATRIURETIC PEPTIDE 4,591(H) <450 PG/ML 08/24/2024 9:14 PM CDT [facility] Comment: CUT POINTS ESTABLISHED BY INTERNATIONAL [employer] ON NT PROBNP (ICON) STUDY (2006). AGE INDEPENDENT: <300 PG/ML HAS A 99% NEGATIVE PREDICTIVE VALUE FOR EXCLUDING ACUTE CHF <50 YEARS: >450 PG/ML IS CONSISTENT WITH ACUTE CHF 50-75 YEARS: >900 PG/ML IS CONSISTENT WITH ACUTE CHF >75 YEARS: >1800 PG/ML IS CONSISTENT WITH ACUTE CHF IN PATIENTS WITH RENAL INSUFFICIENCY (GFR <60), >1200 PG/ML YIELDS A DIAGNOSTIC SENSITIVITY AND SPECIFICITY OF 89% AND 72% FOR ACUTE CHF. 08/24/2024 8:14 PM CDT Joann Sherman NP LABORATORY Final Result [facility] [address] [place] [address], * CT HEAD WO CON (08/24/2024 4:59 PM CDT) Anatomical Region Laterality Modality Head Computed Tomogra phy 08/24/2024 5:31 PM CDT Impressions 08/24/2024 5:33 PM CDT IMPRESSION: 1. No definite CT evidence of acute intracranial abnormality, as above. 2. Small vessel disease and volume loss. Ordered By: ISMAEL BRENNAN Interpreted By: Owen Hermosillo MD, 08/24/2024 5:31 PM Narrative 08/24/2024 5:33 PM CDT [facility] [address] [place], [place] [address] DATE: 08/24/2024 4:53 PM EXAMINATION: CT of the head CLINICAL HISTORY: Dizziness. Headache. COMPARISON: 06/14/2021 TECHNIQUE: CT examination of the head without contrast was performed. Axial and multiplanar images obtained. A dose lowering technique was used for this procedure, which may include, but is not limited to, dose reduction technique, automated exposure control, the use of iterative reconstruction, and ALARA (As Low As Reasonably Achievable) / Image Gently techniques. FINDINGS: No acute intracranial hemorrhage, extra-axial collections, intracranial mass effect, or midline shift. Patchy foci of hypodensity noted in the hemispheric white matter, likely due to small vessel disease. Atherosclerotic vascular calcifications. No definite CT evidence of acute territorial infarction, though MRI would be more sensitive. Mild volume loss with enlargement of the ventricles and extra-axial/subarachnoid spaces. Calvarium unremarkable. Mastoid air cells clear. Mucosal thickening noted in the paranasal sinuses. Right ocular staphyloma. Bilateral lens replacements. Procedure Note Owen Hermosillo MD - 08/24/[address] [address] DATE: 08/24/2024 4:53 PM EXAMINATION: CT of the head CLINICAL HISTORY: Dizziness. Headache. COMPARISON: 06/14/2021 TECHNIQUE: CT examination of the head without contrast was performed.Axial and multiplanar images obtained. A dose lowering technique was used for this procedure, which may include,but is not limited to, dose reduction technique, automated exposurecontrol, the use of iterative reconstruction, and ALARA (As Low AsReasonably Achievable) / Image Gently techniques. FINDINGS: No acute intracranial hemorrhage, extra-axial collections, intracranialmass effect, or midline shift. Patchy foci of hypodensity noted in thehemispheric white matter, likely due to small vessel disease.Atherosclerotic vascular calcifications. No definite CT evidence of acuteterritorial infarction, though MRI would be more sensitive. Mild volumeloss with enlargement of the ventricles and extra-axial/subarachnoidspaces. Calvarium unremarkable. Mastoid air cells clear. Mucosalthickening noted in the paranasal sinuses. Right ocular staphyloma.Bilateral lens replacements. IMPRESSION: 1. No definite CT evidence of acute intracranial abnormality, as above. 2. Small vessel disease and volume loss. Ordered By: ISMAEL BRENNAN Interpreted By: Owen Hermosillo MD, 08/24/2024 5:31 PM us Ismael Brennan MD CT Final Result * EKG Reading (08/24/2024 4:25 PM CDT) Only the most recent of2 resultswithin the time period is included. Narrative Ismael Brennan MD - 08/24/2024 4:25 PM CDT Ismael Brennan MD 08/24/2024 4:49 PM EKG Reading Date/Time: 08/24/2024 4:25 PM Performed by: Ismael Brennan MD Authorized by: Ismael Brennan MD Interpreted by ED physician Comparison: compared with previous ECG from 08/24/2024 Rhythm: atrial fibrillation Rate: tachycardic BPM: 116 Comments: Atrial fibrillation with RVR heart rate 116. Right bundle branch block. Normal axis nonspecific ST-T wave change. Compared to EKG earlier today. Rhythm strip ordered interpreted 1612 Atrial fibrillation. Heart rate 116. No ectopy us Ismael Brennan MD [facility] Final Result * ECG 12 lead (08/24/2024 4:12 PM CDT) Only the most recent of2 resultswithin the time period is included. 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1950 Requested By: ROSARIO MOCK Order Number: [id number] Reading MD: Irina Moody Measurements Intervals [place] Rate: 116 P: 0 [place]: 0 QRS: 65 QRSD: 154 T: 39 QT: 359 QTc: 500 Interpretive Statements ATRIAL FIBRILLATION WITH RAPID VENTRICULAR RESPONSE RIGHT BUNDLE BRANCH BLOCK [120+ ms QRS DURATION, UPRIGHT V1, 40+ ms S IN I/aVL/V4/V5/V6] Compared to ECG 08/24/2024 14:11:33 No significant changes Procedure Note Irina Moody MD - 08/25/[address] Test Date: 2024-08-24 Pat Name: JAYLEEN CAVAZOS Department: 41 Room: [place] 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 TROPONIN I HIGH SENSITIVITY 32 <79 ng/L 08/24/2024 4:48 PM CDT [facility] Comment: HIGH DOSES OF BIOTIN, TROPONIN-SPECIFIC AUTOANTIBODIES, AND ANTIBODY THERAPY CONTAINING HAMA MAY INTERFERE WITH THIS TEST RESULT. CORRELATION TO CLINICAL HISTORY AND PRESENTATION RECOMMENDED. 08/24/2024 4:08 PM CDT us Rosario SPARKS LABORATORY Final Result [facility] [address] [place] [address], [place] [phone] * LACTIC ACID W REFLEX (SEPSIS) (08/24/2024 3:36 PM CDT) LACTIC ACID VENOUS 0.8 0.4 - 2.0 MMOL/L 08/24/2024 4:15 PM CDT [facility] 08/24/2024 3:36 PM CDT us Ismael Brennan MD LABORATORY Final Result [facility] [address] [place] [address], [place] [phone] * PARTIAL THROMBOPLASTIN TIME,PTT (08/24/2024 3:36 PM CDT) PTT 30.4 25.1 - 36.5 SEC 08/24/2024 4:22 PM CDT [facility] 08/24/2024 3:36 PM CDT Ismael Brennan MD LABORATORY Final Result [facility] [address] [place] [address], [place] [phone] * (ABNORMAL) PROTIME/INR, VENOUS (08/24/2024 3:36 PM CDT) PROTIME 13.3(H) 10.2 - 12.9 SEC 08/24/2024 4:22 PM CDT [facility] INR 1.2 08/24/2024 4:22 PM CDT [facility] Comment: Recommended INR Therapeutic Goals: 2.0-3.0 Routine Therapy 2.5-3.5 Mechanical Prosthetic Valves (High Risk) 08/24/2024 3:36 PM CDT us Ismael Brennan MD LABORATORY Final Result [facility] [address] [place] [address], [place] [phone] * LIPASE (08/24/2024 3:36 PM CDT) LIPASE 32 13 - 75 UNITS/L 08/24/2024 4:11 PM CDT [facility] 08/24/2024 3:36 PM CDT Ismael Brennan MD LABORATORY Final Result Performing Organization Address [facility] Co de Phone Number [facility] [address] [place] [address], [place] [phone] * XR CHEST PORTABLE (08/24/2024 2:40 PM CDT) Anatomical Region Laterality Modality Chest Radiographic Marie ging 08/24/2024 2:42 PM CDT Impressions 08/24/2024 2:44 PM CDT =====IMPRESSION:===== Mild cardiomegaly, central pulmonary vascular congestion, and interstitial edema. Ordered By: ROSARIO MOCK Interpreted By: Davin Corral MD, 08/24/2024 2:42 PM Narrative 08/24/2024 2:44 PM CDT [facility] [address] [place], [place] [address] Examination: Chest x-ray 1 view Exam date/time: 08/24/2024 2:15 PM Reason For Exam: Chest pain Comparison: Chest radiograph 08/20/2024. Technique: Upright AP view of the chest demonstrated. Findings: Mild cardiomegaly, similar to prior. Mild central pulmonary vascular congestion. Atherosclerotic calcifications of the thoracic aorta. Mild interstitial edema seen at the left lung base. No focal pulmonary consolidation. No pleural effusions or pneumothorax identified. Procedure Note Davin Corral MD - 08/24/[address] [address] Examination: Chest x-ray 1 view Exam date/time: 08/24/2024 2:15 PM Reason For Exam: Chest pain Comparison: Chest radiograph 08/20/2024. Technique: Upright AP view of the chest demonstrated. Findings: Mild cardiomegaly, similar to prior. Mild central pulmonaryvascular congestion. Atherosclerotic calcifications of the thoracic aorta.Mild interstitial edema seen at the left lung base. No focal pulmonaryconsolidation. No pleural effusions or pneumothorax identified. =====IMPRESSION:===== Mild cardiomegaly, central pulmonary vascular congestion, and interstitialedema. Ordered By: ROSARIO MOCK Interpreted By: Davin Corral MD, 08/24/2024 2:42 PM us Rosario Mock PA GENERAL IMAGING Final Result * XR CHEST PA+LAT (08/20/2024 3:52 PM CDT) Anatomical Region Laterality Modality Chest Radiographic Marie ging 08/20/2024 5:56 PM CDT Impressions 08/20/2024 5:56 PM CDT IMPRESSION: No acute findings Ordered By: TIRSO COOPER Interpreted By: Minor Jo MD, 08/20/2024 5:56 PM Narrative 08/20/2024 5:56 PM CDT [facility] [address] [place], [place] [address] 2 VIEWS OF THE CHEST Clinical history: End-stage renal disease Comparison: May 28, 2024 2 views of the chest demonstrate the cardiac silhouette to be normal in size and appears stable. The pulmonary vessels appear normal. The Lungs are clear. No consolidations or effusions are seen. Procedure Note Minor Jo MD - 08/20/2024 [facility] [address] [place], [place] [address] 2 VIEWS OF THE CHEST Clinical history: End-stage renal disease Comparison: May 28, 2024 2 views of the chest demonstrate the cardiac silhouette to be normal insize and appears stable. The pulmonary vessels appear normal. The Lungsare clear. No consolidations or effusions are seen. IMPRESSION: No acute findings Ordered By: TIRSO COOPER Interpreted By: Minor Jo MD, 08/20/2024 5:56 PM us Tirso Cooper MD GENERAL IMAGING Final Result * (ABNORMAL) PTH - INTACT (08/20/2024 3:42 PM CDT) Only the most recent of2 resultswithin the time period is included. PTH INTACT 284.1(H) 18.4 - 80.1 PG/ML 08/20/2024 4:19 PM CDT [facility] 08/20/2024 3:42 PM CDT us Tirso Cooper MD LABORATORY Final Result [facility] [address] [facility] [place] [address], [place] [phone] * HEPATITIS B SURFACE AG, EIA (08/20/2024 3:42 PM CDT) HEPATITIS B SURFACE AG NON-REACTI VE NON-REACTI VE 08/20/2024 4:30 PM CDT [facility] 08/20/2024 3:42 PM CDT us Tirso Cooper MD LABORATORY Final Result [facility] [address] [place] [address], [place] [phone] * HEPATITIS B SURFACE ANTIBODY (08/20/2024 3:42 PM CDT) HEP B SURFACE AB NON-REACTI VE 08/20/2024 5:24 PM CDT [facility] 08/20/2024 3:42 PM CDT us Tirso Cooper MD LABORATORY Final Result [facility] [address] [place] [address], [place] [phone] * HEPATITIS B CORE ANTIBODY (08/20/2024 3:42 PM CDT) HEP B CORE TOTAL AB NON-REACTI VE NON-REACTI VE 08/20/2024 4:59 PM CDT [facility] 08/20/2024 3:42 PM CDT us Tirso Cooper MD LABORATORY Final Result [facility] [address] [place] [address], [place] [phone] * (ABNORMAL) CBC, AUTO, NO DIFF (08/20/2024 3:42 PM CDT) Only the most recent of3 resultswithin the time period is included. WBC 7.79 4.5 - 11.0 x10'3/uL 08/20/2024 3:52 PM CDT [facility] RBC 2.59(L) 4.70 - 6.10 x10'6/uL 08/20/2024 3:52 PM CDT [facility] HGB 7.7(L) 14.0 - 18.0 G/DL 08/20/2024 3:52 PM CDT [facility] HCT 23.8(L) 43.0 - 54.0 % 08/20/2024 3:52 PM CDT [facility] MCV 91.9 80.0 - 94.0 FL 08/20/2024 3:52 PM CDT [facility] MCH 29.7 27.0 - 31.0 PG 08/20/2024 3:52 PM CDT [facility] MCHC 32.4 32.0 - 36.0 G/DL 08/20/2024 3:52 PM CDT [facility] RDW 16.1(H) 11.5 - 14.5 % 08/20/2024 3:52 PM CDT [facility] PLT 262 130 - 400 x10'3/uL 08/20/2024 3:52 PM CDT [facility] MPV 9.5 9.3 - 12.2 FL 08/20/2024 3:52 PM CDT [facility] 08/20/2024 3:42 PM CDT us Tirso Cooper MD LABORATORY Final Result Performing Organization Address [facility]/ZIP Co de Phone Number [facility] [address] [place] [address], [place] [phone] * VITAMIN D, 25 [place] (07/26/2024 12:13 PM INSURANCE COMPLIANCE ANALYST) VITAMIN D 25 HYDROXY S/P/B 36 30 - 100 NG/ML 07/26/2024 2:07 PM INSURANCE COMPLIANCE ANALYST [facility] Comment: INTERPRETATION DEFICIENT <20 INSUFFICIENT 20-29 SUFFICIENT 30-100 07/26/2024 12:1 3 PM INSURANCE COMPLIANCE ANALYST Tirso Cooper MD LABORATORY Final Result Performing Organization Address [facility] Co de Phone Number [facility] [address] [place] [address], [place] [phone] * URIC ACID BLOOD (07/26/2024 12:13 PM INSURANCE COMPLIANCE ANALYST) URIC ACID 4.6 3.5 - 7.2 MG/DL 07/26/2024 2:16 PM INSURANCE COMPLIANCE ANALYST [facility] 07/26/2024 12:1 3 PM INSURANCE COMPLIANCE ANALYST Tirso Cooper MD LABORATORY Final Result Performing Organization Address City/[facility]/ZIP Co de Phone Number [facility] [address] [place] [address], [place] [phone] * (ABNORMAL) LIPID PANEL (10/12/2022 7:06 AM CDT) CHOLESTEROL 110 <200 MG/DL 10/12/2022 8:01 AM CDT [facility] TRIGLYCERIDES 134 <150 MG/DL 10/12/2022 8:01 AM CDT [facility] HDL 35(L) >40.0 MG/DL 10/12/2022 8:01 AM T [facility] LDL (CALCULATED) 48 <100 MG/DL 10/13/19 8:01 AM CDT [facility] NON HDL CHOLESTEROL 75 <130 MG/DL 10/12 8:01 AM T [facility] CHOL/HDL RATIO 3.1 0.0 - 4.5 10/12/2022 8:01 AM T [facility] VLDL CALCULATION 27 5 - 55 MG/DL 10/12/2022 8:01 AM T [facility] LIPID INTERPRETATION 10/12/2022 8:01 AM T [facility] Comment: [facility] CONCENSUS REPORT RECOMMENDATIONS: ADULT CHILD LOW RISK: CHOLESTEROL <200 <170 TRIGLYCERIDE <150 --- HDL >=60 --- LDL <100 <110 BORDERLINE: CHOLESTEROL 200-239 170-199 TRIGLYCERIDE 150-199 --- HDL 40-59 --- LDL 100-159 110-129 HIGH RISK: CHOLESTEROL >=240 >=200 TRIGLYCERIDE >=200 --- HDL <40 --- LDL >=160 >=130 10/12/2022 7:06 AM CDT Josseline Tabares MD LABORATORY Final Result [facility] [address] [place] [address], [place] [phone] * HEPATITIS PANEL,ACUTE (05/30/2021 1:20 PM INSURANCE COMPLIANCE ANALYST) HEPATITIS B SURFACE AG NON-REACTI VE NON-REACTI VE 05/30/2021 3:16 PM INSURANCE COMPLIANCE ANALYST [facility] HEP B CORE IGM NON-REACTI VE NON-REACTI VE 05/30/2021 3:16 PM INSURANCE COMPLIANCE ANALYST [facility] HAV IGM NON-REACTI VE NON-REACTI VE 05/30/2021 3:16 PM INSURANCE COMPLIANCE ANALYST [facility] HEPATITIS C AB NON-REACTI VE NON-REACTI VE 05/30/2021 3:16 PM INSURANCE COMPLIANCE ANALYST [facility] 05/30/2021 1:20 PM INSURANCE COMPLIANCE ANALYST us Tirso Cooper MD LABORATORY Final Result [facility] [address] [place] [address], from Last 3 Months or Most Recently Relevant to Health Maintenance Insurance [facility] MEDICAID T AETNA AETNA Advance Directives * Full Code (Latest Code Status on File) Date Activated Date Inactivated Comments 08/24/2024 7:40 PM 09/01/2024 4:42 PM * Full Code Date Activated Date Inactivated Comments 05/27/2024 10:51 PM 06/05/2024 7:14 PM * Full Code Date Activated Date Inactivated Comments 10/10/2022 7:40 PM 10/12/2022 6:19 PM * Full Code Date Activated Date Inactivated Comments 06/13/2021 1:13 AM 06/19/2021 5:26 PM * Full Code Date Activated Date Inactivated Comments 05/29/2021 11:22 PM 06/03/2021 3:03 PM Care Teams [employer] Relationship Specialty [place] [address] [place] [phone] PCP - General FAMILY PRACTICE 05/29/21
--- OUTSIDE RECORDS SUMMARY | 2024-09-06 15:37 | XMS_ITS ---
Author Organization [facility] ([facility]) Address [facility] [address] [address] Care Team Providers Care Olive Picker Name Role Phone Unavailable Unavailable Unavailable Allergies, Adverse Reactions, Alerts Allergy Name Allergy Type Status Severity Reaction(s) Onset Date Inactive Date Treating Clinician Comments No Known Allergies Allergy Active 2024-08 19:03:0 0 Medications Ordered Medication Name Filled Medication Name Start Date Stop Date Current Medication? Ordering Clinician Indication Dosage Frequency Signature (SIG) Comments Components Venofer 09-06 14:31: 56 Yes [id number] Number of Repeats Allowed: Frequency: Every monthDoses Ordered: Maintenanc e Dose 100 Milligram Route: Intravenou s Mircera 09-05 13:33: 09 Yes [id number] Number of Repeats Allowed: Frequency: GILBERT dosing, every three to four weeks Eliquis 09-03 18:59: 58 Yes Number of Repeats Allowed: Frequency: Two times a day Sodium Bicarbonate 09-02 17:15: 21 Yes Number of Repeats Allowed: Frequency: One time a day Ferrous Sulfate 09-02 17:14: 24 Yes Number of Repeats Allowed: Frequency: One time a day Pantoprazol e Sodium 09-02 17:13: 14 Yes Number of Repeats Allowed: Frequency: One time a day Cardura 09-02 17:12: 23 Yes Number of Repeats Allowed: Frequency: Once a day, at bedtime Atorvastati n Calcium 09-02 17:10: 22 Yes Number of Repeats Allowed: Frequency: Once a day, at bedtime Allopurinol 09-02 17:08: 52 Yes Number of Repeats Allowed: Frequency: Three times a week Lidocaine 09-02 17:07: 58 Yes Number of Repeats Allowed: Frequency: One time a day Metoprolol Tartrate 09-02 17:06: 05 Yes Number of Repeats Allowed: Frequency: Two times a day Vitamin V37-Dqsuv Acid 09-02 16:56: 55 Yes Number of Repeats Allowed: Frequency: Every morning Amiodarone HCl 09-02 16:56: 19 Yes Number of Repeats Allowed: Frequency: Every morning Problems This patient has no known problems. Procedures Procedure Date / Time Performed Performing Clinician Jasmina ce Details AV Fistula 2023-06-25 06:00:00 Access Site Upper Arm (Left) Access Use Start Date 2024-08-25 05:00:0 0 DIALYSIS TREATMENT INFORMATION Conventional Hemodialysis Date Type Treatment Start Date Treatment End Date Pre-Treatment Vitals Post-Treatment Vitals Weight Gain BFR DFR Actual UF Dialysis Access September 03, 2024 Home Hemod ialys is Train ing BP Sitting (Pre-Dialysis) 99/42 mmHg BP Sitting (Post-D ialysis ) 116/ 51 mmHg 250 mL/min 158.95420 [id number] mL/min BP Standing (Pre-Dialysis) 97/38 mmHg BP Standing (P ost-Dialysis) 106/37 mmHg Sitting Heart Rate Pre-Dialysis 62 BPM Sitting Heart Rate Post-Dialysis 62 BPM Standing Heart Rate Pre-Dialysis 64 BPM Standing Heart Rate Post-Dialysis 64 BPM Temperature Pre-Dialysis 97.6 degF Temperature Post -Dialysis 97.9 degF Weight Pre-Dialysis 73 kg DIALYSIS ORDER Dialysis Procedure Orders Type of Dialysis Procedure Order Order Date/Time Observations Home Hemodialysis Training September 03 Target Weight 73 kg Blood Flow Rate 250 mL/min Max UF Rate 10 mL/kg/hr Base Sodium Dialysate Base Sodium 140 mE q/L Therapy Volume 25 L Potassium Value Potassium 2 mEq/L Calcium Dialysate Calcium 3 mEq/L Lactate Lactate 45 mEq/L Access Concurrent No Arterial Access AV Fistula (Upper Ar m (Left)) Venous Access AV Fistula (Upper Ar m (Left)) Machine Type NxStage Arterial Needle Display JMS, SYSLOC MINI , 17G x 1 , SHARP , TWIN Venous Needle JMS, SYSLOC MINI, 17 G x 1 , SHARP , TWIN Cartridge NxStage CAR 170-C Dialyzer NxStage CAR 170-C 11 74 Results Adequacy Description Draw Date Result/Unit Status Ref Range Result Comments stdKt/V (DIAL) 2024-09-06 12:18:57 1.51 F nPCR 2024-09-06 12:18:57 N/A F spKt/V 2024-09-06 12:18:57 0.52 F eKt/V 2024-09-06 12:18:57 0.46 F CURRENT KRU 2024-09-06 12:18:57 F Residual kt/v 2024-09-06 12:18:57 N/A F KT/V PRESCRIBED 2024-09-06 12:18:57 F BSA MARIELLE 2024-09-06 12:18:57 1.88 sq m F VT (KT/V TX VOL) 2024-09-06 12:18:57 N/A F Total Kt/V 2024-09-06 12:18:57 N/A F WEIGHT - PRE DAY 1 2024-09-06 12:18:57 73 kg F stdKT/V Total 2024-09-06 12:18:57 1.51 F TBW (Nascimento) 2024-09-06 12:18:57 38.08 Liters F VM (KT/V MEAN VOL) 2024-09-06 12:18:57 N/A F Std Renal KT/V 2024-09-06 12:18:57 F BLOOD FLOW-QWB 2024-09-06 12:18:57 250 F PATIENT AGE 2024-09-06 12:18:57 74 Years F LENGTH OF DIALYSIS 2024-09-06 12:18:57 164 min F Dialyzer YULI 2024-09-06 12:18:57 1174 Calc F WEIGHT - POST DAY 1 2024-09-06 12:18:57 71.5 kg F WEIGHT (KG) 2024-09-06 12:18:57 73 kg F TOTAL HOURS/WEEK DIALYSIS 2024-09-06 12:18:57 2 hrs F DIALYZER FLOW-QD 2024-09-06 12:18:57 158 mL/min F PRESCRIBED DAYS/WEEK 2024-09-06 12:18:57 4 Day/Wk F HEIGHT IN INCHES 2024-09-06 12:18:57 69 Inches F AMPUTATE FACTOR 2024-09-06 12:18:57 0 F URR% 2024-09-06 12:18:56 36 % F Urea nitrogen [Mass/volume] in Serum or Plasma --post dialysis 2024-09-04 18:17:22 58 mg/dL F 9.0-23.0 KRU-UREA CLR UR 2024-09-04 16:50:20 0 mL/min F Creatinine [Mass/volume] in Serum or Plasma 2024-09-04 16:49:23 5.79 mg/dL F 0.7-1.3 Urea nitrogen [Mass/volume] in Serum or Plasma 2024-09-04 16:49:23 91 mg/dL F 9.0-23.0 COLLECTION TIME FOR URINE 2024-09-03 18:29:39 1440 min F TOTAL VOLUME-24 HR URINE 2024-09-03 18:29:39 0 mL F Anemia Description Draw Date Result/Unit Status Ref Range Result Comments TIBC 2024-09-05 04:33:40 200 ug/dL F 250.0-425.0 IRON SATURATION 2024-09-05 04:33:40 7 % F 21.0-49.0 Iron binding capacity.unsaturated [Mass/volume] in Serum or Plasma 2024-09-05 04:27:28 187 ug/dL F 75.0-360.0 Iron [Mass/volume] in Serum or Plasma 2024-09-05 04:27:28 13 ug/dL F 65.0-175.0 Ferritin [Mass/volume] in Serum or Plasma 2024-09-05 02:25:42 941 ng/mL F 22.0-322.0 HCT CALC HGBX3 2024-09-04 16:21:45 22.8 % F 42.0-52.0 MCHC [Mass/volume] by Automated count 2024-09-04 16:21:09 31 g/dL F 29.6-35.3 Erythrocyte distribution width [Ratio] by Automated count 2024-09-04 16:21:09 19 % F 11.0-15.0 MCH [Entitic mass] by Automated count 2024-09-04 16:21:09 30 pg F 25.9-34.2 MCV [Entitic volume] by Automated count 2024-09-04 16:21:09 96.7 fL F 80.0-100.0 Erythrocytes [#/volume] in Blood by Automated count 2024-09-04 16:21:09 2.54 x 10^6 cells/uL F 4.6-6.2 Platelets [#/volume] in Blood by Automated count 2024-09-04 16:21:09 301 x 10^3 cells/uL F 140.0-450.0 Hemoglobin [Mass/volume] in Blood 2024-09-04 16:21:09 7.6 g/dL F 14.0-18.0 Hematocrit [Volume Fraction] of Blood by Automated count 2024-09-04 16:21:09 24.6 % F 41.0-53.0 FluidBP Description Draw Date Result/Unit Status Ref Range Result Comments Sodium [Moles/volume] in Serum or Plasma 2024-09-05 04:27:28 133 mEq/L F 132.0-146.0 General Description Draw Date Result/Unit Status Ref Range Result Comments Chloride [Moles/volume] in Serum or Plasma 2024-09-05 04:27:28 95 mEq/L F 99.0-109.0 Aspartate aminotransferase [Enzymatic activity/volume] in Serum or Plasma 2024-09-04 16:49:23 28 U/L F 0.0-33.0 Alanine aminotransferase [Enzymatic activity/volume] in Serum or Plasma Aluminum [Mass/volume] in Serum or Plasma InfectionVaccination Description Draw Date Result/Unit Status Ref Range Result Comments Lymphocytes/100 leukocytes in Blood by Automated count 2024-09-04 16:21:09 4.9 % F Lymphocytes [#/volume] in Blood by Automated count 2024-09-04 16:21:09 504 Cells/uL F 620.0-3660.0 Monocytes [#/volume] in Blood by Automated count 2024-09-04 16:21:09 525 Cells/uL F 0.0-1100.0 Basophils [#/volume] in Blood by Automated count 2024-09-04 16:21:09 21 Cells/uL F 0.0-400.0 Eosinophils/100 leukocytes in Blood by Automated count 2024-09-04 16:21:09 1.5 % F Monocytes/100 leukocytes in Blood by Automated count 2024-09-04 16:21:09 5.1 % F Neutrophils [#/volume] in Blood by Automated count 2024-09-04 16:21:09 9096 Cells/uL F 2000.0-8800.0 Leukocytes [#/volume] in Blood by Automated count 2024-09-04 16:21:09 10.3 x 10^3 cells/uL F 4.0-11.0 Eosinophils [#/volume] in Blood by Automated count 2024-09-04 16:21:09 154 Cells/uL F 0.0-700.0 Basophils/100 leukocytes in Blood by Automated count 2024-09-04 16:21:09 0.2 % F Neutrophils/100 leukocytes in Blood by Automated count 2024-09-04 16:21:09 88.4 % F MineralBone Disorder Description Draw Date Result/Unit Status Ref Range Result Comments CA CORRECTED 2024-09-05 04:37:22 9.2 mg/dL F CA*PO4 CORRCTD 2024-09-05 04:33:40 66.5 Calc F 21.0-53.0 CA/PHOS PRODUCT 2024-09-05 04:33:40 61.9 Calc F 21.0-53.0 Calcium [Mass/volume] in Serum or Plasma 2024-09-05 04:27:29 8.6 mg/dL F 8.7-10.4 Phosphate [Mass/volume] in Serum or Plasma 2024-09-05 04:27:28 7.2 mg/dL F 2.4-5.1 Parathyrin.intact [Mass/volume] in Serum or Plasma 2024-09-04 18:52:25 146 pg/mL F 18.0-80.0 Alkaline phosphatase [Enzymatic activity/volume] in Serum or Plasma 2024-09-04 16:49:23 144 U/L F 46.0-116.0 Nutrition Description Draw Date Result/Unit Status Ref Range Result Comments Potassium [Moles/volume] in Serum or Plasma 2024-09-05 04:27:28 4.9 mEq/L F 3.5-5.5 A/G RATIO 2024-09-04 16:50:20 1.8 Calc F 1.0-2.5 GLOBULIN 2024-09-04 16:50:20 1.8 g/dL F 0.9-5.0 CHOL/HDL RATIO 2024-09-04 16:50:20 2.8 Calc F 3.3-5.0 VLDL-CHOL(CALC) 2024-09-04 16:50:20 7 mg/dL F 0.0-29.0 LDL-CHOLESTEROL 2024-09-04 16:50:20 42 mg/dL F 0.0-99.0 Cholesterol [Mass/volume] in Serum or Plasma 2024-09-04 16:49:23 77 mg/dL F 0.0-199.0 Protein [Mass/volume] in Serum or Plasma 2024-09-04 16:49:23 5 g/dL F 5.7-8.2 Albumin [Mass/volume] in Serum or Plasma by Bromocresol green (BCG) dye binding method 2024-09-04 16:49:23 3.2 g/dL F 3.4-4.8 Protein [Mass/volume] in Serum or Plasma 2024-09-04 16:49:23 36 mg/dL F 0.0-149.0 Cholesterol in HDL [Mass/volume] in Serum or Plasma 2024-09-04 16:49:23 28 mg/dL F 40.0-60.0 Lactate dehydrogenase [Enzymatic activity/volume] in Serum or Plasma 2024-09-04 16:49:23 176 U/L F 120.0-246.0 Bicarbonate [Moles/volume] in Serum or Plasma 2024-09-04 16:49:23 25 mEq/L F 20.0-31.0 Encounters No encounter information to report Plan of Treatment Planned Activity Provider Planned Date Details Commen ts Diagnostic Test Pending [facility] 2024-09-02 16:44:37 Ferritin [Mass/volume] in Serum or Plasma [code = 2276-4] Diagnostic Test Pending [facility] 2024-09-02 16:43:41 Aluminum [Mass/volume] in Serum or Plasma [code = 5574-9] Diagnostic Test Pending [facility] 2024-09-02 16:43:59 Creatinine [Mass/volume] in Serum or Plasma [code = 2160-0] Diagnostic Test Pending [facility] 2024-09-06 06:13:23 Hemoglobin [Mass/volume] in Blood [code = 718-7] Diagnostic Test Pending [facility] 2024-09-02 16:47:31 Sodium [Moles/volume] in Serum or Plasma [code = 2951-2] Diagnostic Test Pending [facility] 2024-09-03 06:25:04 Parathyrin.intact [Mass/volume] in Serum or Plasma [code = 2731-8] Diagnostic Test Pending [facility] 2024-09-03 06:25:03 Alanine aminotransferase [Enzymatic activity/volume] in Serum or Plasma [code = 1742-6] Diagnostic Test Pending [facility] 2024-09-03 18:50:47 Home Hemodialysis Training [code = OJK204]
--- OUTSIDE RECORDS SUMMARY | 2024-09-06 15:37 | XMS_ITS | Encounter Summary ---
Author Organization [facility] Address [address] [place] [address] Care Team Providers Care University Administrator Name Role Phone Chandler Geronimo DO Primary Care Provide r Reason for Visit * Reason Onset Date Comments Medication Information 09/01/2024 Encounter Details Date Type Department Care Team (Late st Contact Info) Description 09/01/2024 Telephone [facility] [address] [place] [address] Chayo Segura PA [address] [facility] [address] [place] [address] Medication Information Social History Tobacco Use Types Packs/Day Years Used Date Smoking Tobacco: Never Smokeless Tobacco: Never Alcohol Use Standard Drinks/Week Comments Never 0 (1 standard drink = 0.6 oz pur e alcohol) [facility] Utilities Answer Date Recorded In the [...] declined 10/10/2022 How often do you attend confucianist or jehovah's witness serv ices? Patient declined 10/10/2022 Do you belong to any clubs o r organizations such as confucianist groups, unions, fraternal or athletic groups, or [...] Recorded Patient Health Questionnaire-2 Score 0 07/26/2024 [facility] [place] of Occupat ional Health - Occupational Stress [...] place to sleep or slept in a nursing home (including now)? No 10/10/2022 Housing Stability Vital Sign Answer [place] e Recorded In the last 12 months, was t here a time when you were not able to pay the mortgage or rent on time? No 08/24/2024 In the past 12 months, how m any times have you moved where you were living? 0 08/24/2024 At any time in the past [address] [facility], were you homeless or living in a nursing home (including now)? 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 Answer Date of Assessment Author Status No 08/24/2024 10:42 PM CDT Chandler Chapman RN Active * Do you have difficulty [...] 10:42 PM CDT Chandler Chapman RN Active documented as of this encounter Mental Status * Because of a physical, mental, or emotional condition, do you have serious difficulty concentrating, remembering, or making decisions? Answer Entry Date Author Status No 08/24/2024 10:42 PM CDT Chandler Chapman RN Active documented in this encounter Progress Notes * Myrna Wilkerson - 09/06/2024 3:05 PM CDT CALLED OUT TO DAUGHTER - SCHEDULED F/U FOR 10/05/24 SHE ALSO STATED PATIENT HAS BEEN READMITTED TO [facility] [place] * Myrna Wilkerson - 09/02/2024 1:49 PM CDT Called out to schedule 1 mo fu- no answer and could not leave vm - will try again at later time * Sarahi Whyte RN - 09/01/2024 3:26 PM CDTAddended by: SARAHI WHYTE on: 09/01/2024 03:26 PM Modules accepted: Orders * Sarahi Whyte RN - 09/01/2024 3:22 PM CDT I informed Raymond patient was discharged today but anticoagulation was not addressed. GI said nobleed found and ok for AC from their perspective. Ok to start Eliquis 5 mg BID. Needs CBC in a weekafter starting the Eliquis. Needs 1 month follow up with me. Jazmine voiced understanding. Prescription sent to preferred pharmacy. Lab ordered. No further questions at this time. Jazmine is aware to call the office back if he is unable to afford the prescription for a different medication option. * CLARE Reagan - 09/01/2024 3:06 PM CDT Patient was discharged today but anticoagulation was not addressed. GI said no bleed found and ok for AC from their perspective. Ok to start Eliquis 5 mg BID. Needs CBC in a week after starting the Eliquis. Needs 1 month follow up with me. documented in this encounter Plan of Treatment Upcoming Encounters Date Type Department Care Team (Late st Contact Info) Description 10/04/2024 11:00 AM CDT Office Visit [facility] [address] [place] [address] Anika Kruger APRN [address] [facility] [place], [place] [address] 10/05/2024 9:45 AM CDT Office Visit [facility] [address] [place] [address] Chayo Segura PA [address] [facility] [address] [place] [address] Scheduled Orders Name Type Priority Associated Diagnoses Orde r Schedule CBC W/DIFF AUTOMATED Lab Routine Atrial fibrillation ([facility] HHS/HCC) Expected: 09/08/2024 (Approximate), Expires: 09/01/2025 documented as of this encounter Goals Goal Patient Goal Type Associated Problems Recent Progress Patient-Stated? Author Patient will return to prior living situation and remain independent in ADLs upon discharge from hospital General No Aline Krishna, RN Health - patient able to perform ADLs independently Lifestyle No El Vaughn RN Family - family caregiver with be involved in care transitions and discharge planning Lifestyle No Abby Eng RN documented as of this encounter Visit Diagnoses Diagnosis Atrial fibrillation with RVR ([facility])- Primary Atrial fibrillation Atrial fibrillation ([facility]) Atrial fibrillation documented in this encounter Additional Health Concerns Assessment Noted Time PHQ-9 Depression Total Score: 0 03/14/20 22 3:10 PM CDT documented as of this encounter Care Teams University Administrator Relationship Specialty Start Date End Date Chandler Geronimo DO [address] [place] [id number] PCP - General FAMILY PRACTICE 05/29/21 documented as of this encounter
--- OUTSIDE RECORDS SUMMARY | 2024-09-06 15:37 | XMS_ITS | Clinical Summary ---
Author Organization [facility] Address [address] [place] [address] Care Team Providers Care Set Up And Lay Out Inspector Name Role Phone Unavailable Primary Care Provider Unavailabl e Source Comments [facility],non-owned Affiliates and Associated Physician Practices is amultiple site organization consisting of ambulatory clinics and hospital sitesin [place], [place], [place] and [place]. This disclosure is being madepursuant to the Care Everywhere program and may not contain all information available regarding this patient. Last updated 18.[facility] Allergies No known active allergies Medications Be aware that medications may not be up to date on this document. Always verify current medications with the patient. No known medications Active Problems Problem Noted Date Diagnosed Date Injury, other and unspecified, hand, except fing er 06/17/2011 Elevated troponin 11/20/2010 Syncope and collapse 11/19/2010 Immunizations Name Administration Dates Next Due DT 06/17/2011 Social History Tobacco Use Types Packs/Day Years Used Date Smoking Tobacco: Former Smokeless Tobacco: Never Comments:QUIT SMOKING 2 NORA HS AGO.DID SMOKE 1 PK A DAY Alcohol Use Standard Drinks/Week Comments No 0 (1 standard drink = 0.6 oz pur e alcohol) Sex and Gender Information Value Date Recorded Sex Assigned at Not on file Gender Identity Not on file Sexual Orientation Not on file Last Filed Vital Signs Vital Sign Reading Time Taken Comments Blood Pressure 113/89 06/17/2011 5:40 PM ONLINE MARKETING ANALYST Pulse 67 06/17/2011 9:53 PM ONLINE MARKETING ANALYST Temperature 36.3 C (97.3 F) 06/17/2011 5:40 PM ONLINE MARKETING ANALYST Respiratory Rate 16 06/17/2011 5:40 PM ONLINE MARKETING ANALYST Oxygen Saturation 95% 06/17/2011 9:53 PM ONLINE MARKETING ANALYST Inhaled Oxygen Concentration - - Weight 91.6 kg (202 lb) 06/17/2011 5:40 PM ONLINE MARKETING ANALYST Height 177.8 cm (5' 10 ) 06/17/2011 5:40 PM ONLINE MARKETING ANALYST Body Mass Index 28.98 06/17/2011 5:40 PM ONLINE MARKETING ANALYST Plan of Treatment Health Maintenance Due Date Last Done Comments HEPATITIS C SCREENING 12/27/1967 PNEUMOCOCCAL VACCINE 50+ (1 of 1 - PCV) 12/31/1997 ZOSTER VACCINE (1 of 2) 12/31/1997 DTAP/TDAP/TD VACCINES (2 - Tdap) 06/17/2021 06/17/19 12 Respiratory Syncytial Virus (RSV) Vaccine Pt: or over 60 yrs (1 - 1-dose 75+ series) 12/31/2022 COVID-19 VACCINE ( - 2023-2 5 season) 2024 DEPRESSION SCREENING 06/02/2024 INFLUENZA VACCINE (Season Ended) 2025 HEPATITIS B VACCINE Aged Out No longe r eligible based on patient's age to complete this topic HIB VACCINE Aged Out No longer eligi ble based on patient's age to complete this topic HPV VACCINE Aged Out No longer eligi ble based on patient's age to complete this topic MENINGOCOCCAL (Group B) VACC INE SHARED DECISION-MAKING Aged Out No longer eligibl e based on patient's age to complete this topic MENINGOCOCCAL GROUPS A/C/Y/W VACCINE Aged Out No longer eligible b ased on patient's age to complete this topic Advance Directives * FULL RESUSCITATION (Latest Code Status on File) Date Activated Date Inactivated Comments 11/20/2010 1:48 PM 11/21/2010 5:57 AM
--- OUTSIDE RECORDS SUMMARY | 2024-09-06 15:37 | XMS_ITS | Encounter Summary ---
Author Organization [facility] Address [address] [place] [address] Care Team Providers Care Colors Custodian Name Role Phone FelicianoCarleen Kotharirick Primary Care Provide r Reason for Referral * Surgical (Routine) - New Request Specialty Diagnoses / Procedures Referred By Contac t Referred To Contact Diagnoses ESRD (end stage renal disease) on dialysis ([facility]) Procedures Case request operating room: BRACHIAL CEPHALIC ARTERIOVENOUS FISTULA OR TRANSPOSITION BASILIC VEIN (LEFT ARM) Layton Herrera MD [facility]. [id number] [place] [address] Phone: tel: fax: Referral ID Status Reason Start Date Expiration Date V isits Requested Visits Authorized [id number] New Request 06/01/2024 06/01/2025 1 1 PRESIDENT SALES Encounter Details Date Type Department Care Team (Late st Contact Info) Description 06/01/2024 Prep for Procedure [facility] [address] [place] [address] Layton Herrera MD [facility]. [facility] [address] [place] [address] Social History Tobacco Use Types Packs/Day Years Used Date Smoking Tobacco: Never Smokeless Tobacco: Never Alcohol Use Standard Drinks/Week Comments Never 0 (1 standard drink = 0.6 oz pur e alcohol) [facility] Utilities Answer Date Recorded In the past 12 months has th e electric, gas, oil, or water company [...] declined 10/10/2022 How often do you attend christian or jew serv ices? Patient declined 10/10/2022 Do you belong to any clubs o r organizations such as christian groups, unions, fraternal or athletic groups, or [...] Date Recorded Patient Health Questionnaire-2 Score 0 01/05/2024 [facility] [place] [facility] - Occupational Stress [...] place to sleep or slept in a [facility]p (including now)? No 10/10/2022 Housing Stability Vital Sign Answer [place] e Recorded In the last 12 months, was t here a time when you were not able to pay the mortgage or rent on time? No 05/28/2024 In the past 12 months, how m any times have you moved where you were living? 0 05/28/2024 At any time in the past 12 m [facility], were you homeless or living in a m[facility]p (including now)? 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 [address] [place] [address] 10/05/2024 9:45 AM CDT Office Visit [facility] [address] [place] [address] Chayo Segura PA 3 [facility] [address] [place] [address] Scheduled Orders Name Type Priority Associated Diagnoses Orde r Schedule Case request operating room: BRACHIAL CEPHALIC ARTERIOVENOUS FISTULA OR TRANSPOSITION BASILIC VEIN (LEFT ARM) Case Request Routine ESRD (end stage renal disease) on dialysis ([facility]) Once for 1 Occurrences starting 06/01/2024 until 06/01/2024 documented as of this encounter Goals Goal [...] as of this encounter Visit Diagnoses Diagnosis ESRD (end stage renal disease) on dialysis ([facility])- Primary End stage renal disease documented in this encounter Additional Health Concerns Assessment Noted Time PHQ-9 Depression Total Score: 0 03/14/20 22 3:10 PM CDT documented as of this encounter Care Teams Colors Custodian Relationship Specialty Start Date End Date Chandler Geronimo DO [address] [facility] [place] [id number] PCP - General FAMILY PRACTICE 05/29/21 documented as of this encounter
--- OUTSIDE RECORDS SUMMARY | 2024-09-06 15:37 | XMS_ITS | Continuity of Care Document ---
Author Organization [facility] Address [address] [place] [address] Phone Care Team Providers Care Civil Lawyer Name Role Phone Chandler John DO Unavailable Unava ilable Allergies, Adverse Reactions, Alerts Substance Reaction Status Criticality No Known Allergies Active No Inform ation Medications Medication Instructions Dosage Effective Dates (start - stop) Status Comments Retacrit 10,000 unit/mL injection solution inject 1mL by subcutaneous route three times a week - Active Eliquis 5 mg tablet take 1 tablet by oral route 2 times every day 5 MG - Active amiodarone 200 mg tablet take 1 tablet by oral route every day 200 MG - Active Renal Caps 1 mg capsule take 1 capsule by oral route every day 1.00 capsule - Active calcium 500 mg (as calcium carbonate 1,250 mg) tablet Take 1 tablet by oral route three times a day - Active lidocaine 4 % topical patch Place 1 patch onto skin daily. Remove and discard patch within 12 hrs. - Active metoprolol tartrate 25 mg tablet take 1 tablet by oral route 2 times every day 25 MG - Active furosemide 40 mg tablet Take 3 tablets by mouth 2 times a day, 3 days a week. Take 3 tablets 2 times a day on non-dialysis days Friday, Friday, , and Friday. - Active sodium bicarbonate 650 mg tablet take 1 tablet by oral route daily - Active allopurinol 100 mg tablet take 1 tablet by oral route every Mon, Wed, and Fri after hemodialysis - Active calcitriol 0.25 mcg capsule take 2 capsules by oral route every day - Active pantoprazole 40 mg tablet,delayed release take 1 tablet by oral route every day 40 MG - Active atorvastatin 20 mg tablet TAKE 1 TABLET BY MOUTH EVERY DAY - Active FERROUS SULFATE 324MG EC TABS RED TAKE 1 TABLET BY MOUTH ONCE DAILY - Active Vitamin D3 25 mcg (1,000 unit) capsule take 1 by Oral route once 1 - Active Alcohol Pads Use pad to cleanse skin before checking blood sugar and before administering insulin - Active Unifine Pentips Maxflow 30 gauge x 3/16 needle Use with Lantus Solostar pen - Active doxazosin 2 mg tablet take 2 tablet by oral route every day 4 MG - Active Contour Next EZ Meter kit Use as directed to check blood sugar - Active Contour Next Test Strips place 1 strip into glucometer as directed to test blood sugar 4 times a day - Active lancets 30 gauge Use lancet to test blood sugar 4 times a day - Active Sharps Container - Active Procedures Procedure Date DSCG MED/CURRENT MED MERGE DSCG MED/CURRENT MED MERGE Transitional Care- First 7 Days Of Disch arge BODY MASS INDEX DOCD SYST BP LT 130 MM HG DIAST BP < 80 MM HG FALL RISK ASSESSMENT DOC'D PRES/ABSN URINE INCON ASSESS Pt inelig neg scrn depres PNEUMOVAX ADM MEDICARE Pneumococcal Conjugate Vaccine (PCV20) D Admin influenza virus vac INFLUENZA VACCINE, 0.5mL DOSAGE; FLUZONE OFFICE KEGJE-IUU-BUVKHROW BODY MASS INDEX DOCD SYST BP LT 130 MM HG DIAST BP < 80 MM HG BASIC METABOLIC PANEL(BMP) HEMOGLOBIN A1C HGA1C, GLYCO LIPID PANEL MICROALBUMIN, QN (URINE) CREATININE, (U-R) PSA, TOTAL URINALYSIS W MICROSCOPIC (UA) ROUTINE VENIPUNCTURE [place] OFFICE WTALK-IJO-NUCDRVUT Visit Complexity Inherent To E/M 2023 BODY MASS INDEX DOCD SYST BP LT 130 MM HG DIAST BP < 80 MM HG FALL RISK ASSESSMENT DOC'D PRES/ABSN URINE INCON ASSESS Pt inelig neg scrn depres Admin influenza virus vac FLU VACC 4 BINH 0.5mL DOSAGE OFFICE OBRHO-YWH-SATLCGJT BODY MASS INDEX DOCD SYST BP LT 130 MM HG DIAST BP < 80 MM HG No Show Appt Charge DSCHRG MED/CURRENT MED MERGE OFFICE VCZXT-RPX-MARS BODY MASS INDEX DOCD SYST BP LT 130 MM HG DIAST BP < 80 MM HG Transitional Care- First 7 Days Of Disch arge CBC, INC PLATELETS AND DIFFERENTIAL COMPREHEN METABOLIC PANEL CMP HEMOGLOBIN A1C HGA1C, GLYCO LIPID PANEL MICROALBUMIN, QN (URINE) CREATININE, (U-R) PSA, TOTAL, SCREENING MEDICARE ONLY PARATHYROID HORMONE (PTH) VITAMIN D, 25-HYDROXY ROUTINE VENIPUNCTURE IL OFFICE [id number]-[id number]-[id number] BODY MASS INDEX DOCD SYST BP GE 130 - 139MM HG DIAST BP < 80 MM HG OFFICE [id number]-FXR-WCVSOPLF BODY MASS INDEX DOCD SYST BP GE 130 - 139MM HG DIAST BP < 80 MM HG Pt inelig neg scrn depres FALL RISK ASSESSMENT DOC'D PRES/ABSN URINE INCON ASSESS OFFICE CDNCD-BQI-FIREHEIB BODY MASS INDEX DOCD SYST BP LT 130 MM HG DIAST BP < 80 MM HG HEMOGLOBIN A1C HGA1C, GLYCO URINALYSIS, REFLEX (UA) ROUTINE VENIPUNCTURE OFFICE ROXBI-JKU-BGTFOYEC BODY MASS INDEX DOCD SYST BP LT 130 MM HG DIAST BP < 80 MM HG DSCHRG MED/CURRENT MED MERGE Transitional Care- First 7 Days Of Disch arge BODY MASS INDEX DOCD SYST BP >= 140 MM HG6 IT DIAST BP < 80 MM HG COVID-19, Amplified Probe Technique DSCHRG MED/CURRENT MED MERGE BASIC METABOLIC PANEL(BMP) CBC, INC PLATELETS AND DIFFERENTIAL ROUTINE VENIPUNCTURE Transitional Care- First 7 Days Of Disch arge BODY MASS INDEX DOCD SYST BP LT 130 MM HG DIAST BP < 80 MM HG OFFICE TEODV-WSS-JCERHSYO COMPREHEN METABOLIC PANEL CMP HEMOGLOBIN A1C HGA1C, GLYCO LIPID PANEL ROUTINE VENIPUNCTURE Admin influenza virus vac FLU VACC 4 BINH 0.5mL DOSAGE OFFICE [id number]-[id number]-DJEOQMQP BODY MASS INDEX DOCD SYST BP GE 130 - 139MM HG DIAST BP < 80 MM HG FALL RISK ASSESSMENT DOC'D PRES/ABSN URINE INCON ASSESS Pt inelig neg scrn depres CBC, INC PLATELETS AND DIFFERENTIAL COMPREHEN METABOLIC PANEL CMP LIPID PANEL PSA, TOTAL, SCREENING MEDICARE ONLY ROUTINE VENIPUNCTURE OFFICE NCXVH-GTU-ZAMAGUEI BODY MASS INDEX DOCD SYST BP GE 130 - 139MM HG DIAST BP < 80 MM HG HEMOGLOBIN A1C HGA1C, GLYCO CBC, INC PLATELETS AND DIFFERENTIAL COMPREHEN METABOLIC PANEL CMP 9 HEMOGLOBIN A1C HGA1C, GLYCO LIPID PANEL ROUTINE VENIPUNCTURE OFFICE [id number]-QMH-[id number] BODY MASS INDEX DOCD SYST BP LT 130 MM HG DIAST BP < 80 MM HG PSA, TOTAL, SCREENING MEDICARE ONLY Advance Directives Directive Yes / No Effective Date File Name Life Support Not Answered N/A N/A Intubation Not Answered N/A N/A Antibiotics Not Answered N/A N/A IV Fluid Support Not Answered N/A N/A Tube Feed Not Answered N/A N/A Other Directive N/A N/A WARNING:The information contained in this section is historical and is provided for information only and does not constitute a legal document or any assurance that the information is still accurate. Please verify the information with the lewis of the legal document before using it for clinical purposes. Encounters Encounter Description Practice Location Reason(s) For Visit Diagnoses Date Provider Providers Copied on Encounter [facility], [address], [place], [place], [address] , [place] tel:[phone] [facility] No Information 5 CarlaaleshaShailesh Durantrick. [address] [place] [address], [id number], [place]. tel:[phone] [facility], [address], [place], [place], [address] , [place] tel: [phone] [facility] No Information 5 CarlaaleshaShailesh Durantrick. [address] [place] [address], [id number], [place]. tel:[phone] Referring Provider: Chandler castro, [address] [place] [address], [address] . tel:[phone] [facility], [address], [place], [place], [address] , tel: [phone] [facility] No Information 5 BrauliozebShailesh Arteaga. [address] [place] [address], [id number], [place]. tel:[phone] [facility], [address], [place], [place], [address] , [place] tel: [phone] [facility] No Information 5 BrauliozebShailesh Arteaga. [address] [place] [address], [id number], [place]. tel:[phone] Transitional Care- First 7 Days Of Discharge [facility], [address], [place], [place], [address] , [place] tel: [phone] [facility] Hospital Follow-Up (chief complaint)Oth er (chief complaint)Chr onic Conditions (chief complaint) Chronic kidney disease, stage 5HTN w/ chronic kidney disease stage 5Renal osteodystrop hyAnemia in other chronic diseases classified elsewhereTyp e 2 diabetes mellitus with other diabetic kidney complication Mixed hyperlipidem iaAtheroscle rosis of aortaBody mass index [BMI] 24.0-24.9, adultChronic diastolic (congestive) heart failure 5 Faustino Arteaga. [address] [place] [address], [id number], [place]. tel:[phone] Referring Provider: Chandler castro, [address] [place] [address], [place], [address] . tel:[phone] OFFICE OFHMN-GRU-UVO MAXINE [facility], [address], [place], [place], [address] , [place] tel: [phone] [facility] 6 month F/U (chief complaint)Chr onic Conditions (chief complaint) Body mass index [BMI] 27.0-27.9, adultRenal osteodystrop hyAnemia in other chronic diseases classified elsewhereAnt ineutrophili c cytoplasmic antibody [ANCA] vasculitisHy pertensive chronic kidney disease with stage 1 through stage 4 chronic kidney disease, or unspecified chronic kidney diseaseChron ic kidney disease, stage 5Type 2 diabetes mellitus with other diabetic kidney complication Encounter for immunization 4 Faustino Arteaga. [address] [place] [address], [id number], [place]. tel:[phone] Referring Provider: Chandler castro, [address] [place] [address], [address] . tel:[phone] [facility], [address], [place], [place], [address] , [place] tel: [phone] [facility] No Information 4 Faustino Arteaga. [address] [place] [address], [id number], [place]. tel:[phone] [facility], [address], [place], [place], [address] , [place] tel:[phone] [facility] No Information 4 oFzia Wiley. [address] [facility], [address] [address], [place], [place], [address], [place]. tel:[phone] Referring Provider: Chandler castro, [place], [address] . tel:[phone] OFFICE OARLF-FRQ-WWF [facility], [address], [place], [place], [address] , tel: [phone] [facility] 6 month F/U (chief complaint)Chr onic Conditions (chief complaint) Hypertensive chronic kidney disease with stage 1 through stage 4 chronic kidney disease, or unspecified chronic kidney diseaseAntin eutrophilic cytoplasmic antibody [ANCA] vasculitisCh ronic kidney disease, stage 4 (severe)Type 2 diabetes mellitus with other diabetic kidney complication Anemia in other chronic diseases classified elsewhereRen al osteodystrop hyMixed hyperlipidem iaNocturiaBo dy mass index [BMI] 26.0-26.9, adultEncount er for screening for malignant neoplasm of colon 4 Faustino Arteaga. [facility] [place], [id number], [place]. tel:[phone] Referring Provider: Chandler castro, [facility], [place], [address] . tel:[phone] OFFICE EJKSU-UYD-BQE [facility], [address], [place], [place], [address] , tel: [phone] [facility] 6 mo f/u (chief complaint)Chr onic Conditions (chief complaint) Body mass index [BMI] 25.0-25.9, adultAntineu trophilic cytoplasmic antibody [ANCA] vasculitisCh ronic kidney disease, stage 4 (severe)Hype rtensive chronic kidney disease with stage 1 through stage 4 chronic kidney disease, or unspecified chronic kidney diseaseType 2 diabetes mellitus with other diabetic kidney complication Immunodefici ency due to drugsEncount er for immunization 3 Faustino Arteaga. [place], [address], [place]. tel:[phone] Referring Provider: Padma Kumar, [place], [address] . tel:[phone] [facility], [address], [place], [place], [address] , [place] tel: [phone] [facility] No Information 3 CarlaaleshaShailesh stone Arteaga. [address] [place] [address], [id number], [place]. tel:[phone] Referring Provider: Chandler castro, [address] [place] [address], [address] . tel:[phone] [facility], [address], [place], [place], [address] , [place] tel: [phone] [facility] Hyperkalemia 3 Nelly [facility]. [address] [place] [address], [address], [place]. tel:[phone] OFFICE TWXAG-XXL-PUH P [facility], [address], [place], [place], [address] , [place] tel: [phone] [facility] Follow-Up (chief complaint)Chr onic Conditions (chief complaint) Hypertensive chronic kidney disease with stage 1 through stage 4 chronic kidney disease, or unspecified chronic kidney diseaseChron ic kidney disease, stage 4 (severe)ANCA associated vasculitisAn emia in other chronic diseases classified elsewhereTyp e 2 diabetes mellitus with other diabetic kidney complication Body mass index [BMI] 28.0-28.9, adultAcute bronchitis, unspecified organismNonr heumatic mitral valve regurgitatio n 3 Nelly [facility]. [address] [place] [address], [address], [place]. tel:[phone] Referring Provider: Chandler castro, [address] [place] [address], [place], [address] . tel:[phone] [facility], [address], [place], [place], [address] , tel: [phone] [facility] No Information 3 Fozia Saurabh. [address], [id number], . tel:[phone] Referring Provider: Chandler castro, [address] [place] [address], [address] . tel:[phone] OFFICE RYZYH-CTL-QXB [facility], [address], [place], [place], [address] , [place] tel: [phone] [facility] Patient encounter (chief complaint)oth er (chief complaint)Chr onic Conditions (chief complaint) ANCA associated vasculitisCh ronic kidney disease, stage 4 (severe)Ilene l osteodystrop hyAnemia in other chronic diseases classified elsewhereTyp e 2 diabetes mellitus with other diabetic kidney complication Mixed hyperlipidem iaAtheroscle rosis of aortaEncwest [facility] er for screening for malignant neoplasm of prostateBody mass index [BMI] 28.0-28.9, adultHyperte nsive chronic kidney disease with stage 1 through stage 4 chronic kidney disease, or unspecified chronic kidney disease 3 Faustino Arteaga. [address] [place] [address], [id number], [place]. tel:[phone] Referring Provider: Chandler castro, [address] [place] [address], [address] . tel:[phone] OFFICE GQKKV-SLA-YYH [facility], [address], [place], [place], [address] , [place] tel: [phone] [facility] Patient encounter (chief complaint)oth er (chief complaint)Chr onic Conditions (chief complaint) Body mass index [BMI] 28.0-28.9, adultChronic kidney disease, stage 4 (severe)Ilene l osteodystrop hyType 2 diabetes mellitus with other diabetic kidney complication Encounter for screening for malignant neoplasm of prostate 2 Faustino Arteaga. [address] [place] [address], [id number], [place]. tel:[phone] Referring Provider: Chandler castro, [address] [place] [address], [address] . tel:[phone] OFFICE AHZNW-QWZ-NTX [facility], [address], [place], [place], [address] , tel: [phone] [facility] other (chief complaint)Chr onic Conditions (chief complaint) Body mass index [BMI] 27.0-27.9, adultNephrit ic syndrome w/ diffuse crescentic glomerulonep hritisChroni c kidney disease, stage 5Long term (current) use of insulinType 2 diabetes mellitus w/ diabetic kidney complication Immunosuppre ssionMixed hyperlipidem ia Oct- 2 Faustino Arteaga. [address] [place] [address], [id number], . tel:[phone] Referring Provider: Chandler castro, [address] [place] [address], [address] . tel:[phone] [facility], [address], [place], [place], [address] , tel:[phone] [facility] No Information 2 Faustino Arteaga. [address] [place] [address], [id number], . tel:[phone] OFFICE APGNP-BSJ-URT [facility], [address], [place], [place], [address] , tel: [phone] [facility] Crescentic glomeruloneph ritis (chief complaint)His tory of COVID-19 (chief complaint)Hyp ertensive renal disease (chief complaint)Oth er (chief complaint)Chr onic Conditions (chief complaint) Body mass index [BMI] 27.0-27.9, adultType 2 diabetes mellitus w/ diabetic kidney complication terminal system operator (current) use of insulinChron ic kidney disease, stage 5Weight lossHistory of hematuriaRen al osteodystrop hyNephritic syndrome w/ diffuse crescentic glomerulonep hritisAthero sclerosis of aorta 2 Faustino Arteaga. [address] [place] [address], [place], [place], [address], [place]. tel:[phone] Referring Provider: Chandler castro, [address] [place] [address], [place], [address] . tel:[phone] Transitional Care- First 7 Days Of Discharge [facility], [address], [place], [place], [address] , [place] tel: [phone] [facility] Follow-Up (chief complaint)oth er (chief complaint)Chr onic Conditions (chief complaint) Body mass index [BMI] 30.0-30.9, adultAKI (acute kidney injury)Hyper tensive renal diseaseType 2 diabetes mellitus w/ diabetic kidney complication Crescentic glomerulonep hritisImmuno suppressionH istory of COVID-19Chro emmett obstructive pulmonary disease, unspecified COPD type 2 Faustino Arteaga. [address] [place] [address], [place], [place], [address], [place]. tel:[phone] Referring Provider: Chandler castro, [address] [place] [address], [place], [address] . tel:[phone] [facility], [address], [place], [place], [address] , [place] tel: [phone] [facility] Exposure to COVID-19 virus 2 Faustino Arteaga. [address] [place] [address], [place], [place], [address], [place]. tel:[phone] Referring Provider: Chandler castro, [address] [place] [address], [place], [address] . tel:[phone] Transitional Care- First 7 Days Of Discharge [facility], [address], [place], [place], [address] , [place] tel: [phone] [facility] Follow-Up (chief complaint)Chr onic Conditions (chief complaint) Type 2 diabetes mellitus w/ diabetic kidney complication LEANDRO (acute kidney injury)Hyper tensive renal diseaseBody mass index [BMI] 28.0-28.9, adultAtheros clerosis of aortaAtheros clerotic heart disease of [place] coronary artery without angina pectorisMass of lingula of lungHemoptys isHematuria, unspecified type 2 Faustino Arteaga. [address] [facility], [place], [place], [address], [place]. tel:[phone] Referring Provider: Chandler castro, [address] [place] [address], [place], [address] . tel:[phone] OFFICE BANEY-QGD-NEG [facility], [address], [place], [place], [address] , tel: [phone] [facility] Follow-Up (chief complaint)Tel ehealth (chief complaint)Chr onic Conditions (chief complaint) Mixed hyperlipidem iaType 2 diabetes mellitus w/ diabetic kidney complication Gastroesopha geal reflux disease without esophagitisA KI (acute kidney injury) 1 Faustino Arteaga. [facility], [place], [place], [address], [place]. [phone] Referring Provider: Chandler castro, [address] [place] [address], [place], [address] . tel:[phone] OFFICE IFZME-TEJ-GJG [facility], [address], [place], [place], [address] , [place] tel: [phone] [facility] acute visit (chief complaint)Chr onic Conditions (chief complaint) Body mass index [BMI] 32.0-32.9, adultPrediab etesAtherosc lerosis of aortaBalanit isEncounter for immunization 1 Faustino Arteaga. [address] [facility], [place], [place], [address], [place]. tel:[phone] Referring Provider: Chandler castro, [address] [place] [address], [address] . 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 [address] [place] [address], [id number], . tel:[phone] Referring Provider: Chandler castro, [address] [place] [address], [address] . tel:[phone] [facility], [address], [place], [place], [address] , [place] tel:[phone] [facility] No Information 1 Faustino Arteaga. [address] [place] [address], [id number], . tel:[phone] [facility], [address], [place], [place], [address] , [place] tel:[phone] [facility] Prediabetes 0 Yolis Soria. [address] [facility], [address], [place], [place], [address], [place]. tel:[phone] OFFICE TNZXH-SNU-KDP ANDED [facility], [address], [place], [address] , [place] tel: [phone] [facility] Chronic Conditions (chief complaint)12 month follow up (chief complaint) Atherosclero sis of aortaChronic obstructive pulmonary disease, unspecifiedA bnormal finding on diagnostic imaging of liver 9 Yolis Soria. [address], [place], [place], [address], [place]. tel:[phone] Referring Provider: Yang Lagos, [address], [place], [address] . tel:[phone] [facility], [address], [place], [address] , [place] tel: [phone] Jer IM Liver mass 9 Yolis Soria. [address], [place], [place], [address], [place]. tel:[phone] [facility], [address], [place], [place], [address] , [place] tel: [phone] Jer IM Epigastric pain 9 Yolis Soria. [address], [place], [place], [address], [place]. tel:[phone] Referring Provider: Yang Lagos, [address], [place], [address] . tel:[phone] [facility], [address], [place], [place], [address] , [place] tel: [phone] Jer IM Atherosclero sis of aortaChronic obstructive pulmonary disease, unspecifiedP rediabetesBe nign neoplasm of colon, unspecified 8 Yolis Soria. [address], [place], [place], [address], [place]. tel:[phone] Referring Provider: Yang Lagos, [address], [place], [address] . tel:[phone] [facility], [address], [place], [place], [address] , [place] tel: [phone] Jer IM Ingrown toenail 7 Yolis Soria. [address], [place], [place], [address], [place]. tel:[phone] [facility], [address], [place], [place], [address] , tel: [phone] [facility] Ingrown toenail Yolis Soria. [address], [place], [address], [place]. tel:[phone] Referring Provider: Yang Lagos, [address], [place], [address] . tel:[phone] [facility], [address], [place], [place], [address] , tel: [phone] Jer IM Chronic obstructive pulmonary disease, unspecified COPD typeTubular adenoma Yolis Soria. [address], [place], [address], [place]. tel:[phone] Referring Provider: Yang Lagos, [address], [place], [address] . tel:[phone] [facility], [address], [place], [place], [address] , tel: [phone] [facility] Abnormal levels of other serum enzymes Yolis Soria. [address], [place], [address], [place]. tel:[phone] Referring Provider: Yang Lagos, [address], [place], [address] . tel:[phone] [facility], [address], [place], [place], [address] , tel: [phone] [facility] Tubular adenomaChron ic obstructive pulmonary disease, unspecified COPD type Sep 6 Yolis Soria. [address], [address], [place]. tel:[phone] Referring Provider: Yang Lagos, [address], [place], [address] . tel:[phone] [facility], [address], [place], [place], [address] , [place] tel: [phone] Jer IM Tubular adenoma 6 Yolis Soria. [address] [facility], [address], [place], [place], [address], [place]. tel:[phone] [facility], [address], [place], [place], [address] , [place] tel: [id number] Jer IM Shortness of breathNon morbid obesity, unspecified obesity typeMidline low back pain without sciaticaChro emmett obstructive pulmonary disease, unspecified COPD typePrediabe tesPrediabet es 6 Yolis Soria. [address] [facility], [address], [place], [place], [id number], [place]. [phone] Referring Provider: Yang Lagos, [address] [facility] [address], [place], [address] . tel:[phone] Family History Family Member Type Diagnosis Age At Onset No Information Immunizations Vaccine Date Status Comments Fluzone Trivalent, split virus, 0.5mL dosage administered Source: New Immuniza tion Record Pneumococcal conjugate PCV20 administered Source: New Immunization Record Fluzone Quad, split virus, 0.5mL dosage administered Source: New Immuniza tion Record Fluzone High-Dose, high dose , preservative free administered Source: Other Regist adiel Pfizer (Diluent Reconstitute d) COVID19 Vaccine, 0.3mL per dose, 2 doses, administered 21 days apart administered Source: Other [facility] luca Fluzone Quad, split virus, 0.5mL dosage administered Source: New Immuniza tion Record Pfizer-BioNTech COVID19 Vaccine, 0.3mL per dose, 2 doses, administered 21 days apart administered Note: Az erickson ; Source: Other Provider Pfizer-BioNTech COVID19 Vaccine, 0.3mL per dose, 2 doses, administered 21 days apart administered Note: Az hermangudelia ; Source: Other Provider Pneumococcal conjugate PCV 13 administere d Source: New Immunization Record Tdap administered Source: New Imm unization Record Payers Payer name Insurance type Covered libertarian ID Kaylin morgan(s) [employer] MB [id number] [employer] MB [id number] [employer] MB [id number] [employer] MB [id number] [employer] MB [id number] [employer] MB [id number] [employer] MB [id number] Social History Type Description Quantity Date Captured Comments Alcohol Use Details Unknown Caffeine Use Details Unknown Tobacco Use Status No Information Smoking Status No Information Sex Male Chief Complaint And Reason For Visit No Information Reason For Referral Reason For Referral No Information Plan Of Treatment Date Type Action Status Goal Dietary manageme nt education, guidance, and counseling completed Goal Dietary manageme nt education, guidance, and counseling completed Goal Dietary manageme nt education, guidance, and counseling completed Goal Dietary manageme nt education, guidance, and counseling completed Goal Dietary manageme nt education, guidance, and counseling completed Goal Dietary manageme nt education, guidance, and counseling completed Goal Dietary manageme nt education, guidance, and counseling completed Goal Dietary manageme nt education, guidance, and counseling completed Goal Dietary manageme nt education, guidance, and counseling completed Goal Dietary manageme nt education, guidance, and counseling completed Goal Dietary manageme nt education, guidance, and counseling completed Goal Dietary manageme nt education, guidance, and counseling completed Goal Dietary manageme nt education, guidance, and counseling completed Referral Referred To: Peggy Beaver [address] [place], [phone] Ordered: Referrals: Gastroenterology. Peggy Beaver. Evaluation/diagnostic/treatment - Level 3 Appointment date/timeframe: 01/08/2023 ordered Referral Referred To: Dr. Ernst Good Ordered: Referrals: Cardiology. Dr. Ernst Good. Evaluation/diagnostic/treatment - Level 3 ordered Referral Referred To: Dr. Trujillo Ordered: Referrals: Urology. Dr. Trujillo. Evaluation/diagnostic/treatment - Level 3 Appointment date/timeframe: 10/08/2021 ordered Referral Referred To: David Hamilton [address] [place], [place], [id number] [phone] Ordered: Referrals: Nephrology. David Hamilton. Evaluation/diagnostic/treatment - Level 3 ordered Referral Referred To: [address] [place], [place], [id number] [phone] Ordered: CT chest without contrast ordered Referral Referred To: Watson Corral OD [address], [place], [id number] [phone] Ordered: Referrals: Special Delivery Carrier. Watson Corral OD. Evaluation/diagnostic/treatment - Level 3 ordered Appointment Bulmaro Chavez BOOK ED Appointment Bulmaro Chavez BOOK ED Patient Education Marco: Care Instruc tions completed Patient Education Learning About COPD com pleted History Of Present Illness Encounter Date Complaint History Of Prese nt Illness Chronic Conditions *See Chronic Conditions HPI Other pt due for:Esperanza valera Dr. visits:n/aFuture appt:Nephrology - Friday - Jun 14Vaccinations due:SHINGRIX - pt has not receivedRSV - pt has not receivedOutstanding referrals:n/a Hospital Follow-Up The patient w as seen today for a hospital follow-up visit, after being discharged on 06/05/2024. Details regarding this most recent admission include: Comes in with daughter for hospital follow-up.Patient was seen at [facility] from 05/27 to 06/05.Patient went to the hospital with increased leg swelling and shortness of breath. He was also found to have melena. Hemoccult testing was positive, GI was consulted, had EGD and colonoscopy on 05/29, ascending colon ulcers were seen, small hiatal hernia are seen. Hemoglobin was stable after 1 unit transfusion. Unfortunately patient also had increased creatinine, follows with nephrology regularly. Patient underwent left AV fistula placement on 06/04. May need dialysis in the future. Patient was cleared for discharge on 06/05.Since dischargePatient has been feeling wellMedication changes:Start -Sodium Bicarbonate 650mg tab - 1 tab PO QD for 30 daysChange - Amlodipine 10mg tab (instead of 5mg) - 1 tab PO QD for 30 daysPantoprazole 40mg tab - 1 tab PO BID for 30 days (instead of once a day) Chronic Conditions *See Chronic Conditions HPI 6 month F/U -Hypertensive CK DOccasionally checks BPDenies chest pain, shortness of breath, dizziness, lightheadedness, palpitations Swelling of lower extremities. On feet for long periods of time. Elevates legs-Type 2 diabetesPt states glucose is well controlled, denies hypoglycemia.-AnemiaWould like to know if iron supplement should be increasedConcerned occasional dry cough is due to anemia Past appt:Infusion [facility] - 04/28/24Labs - 03/04/24Nephrology - 03/08/24Future appt:Infusions as needed Advance directive: Pt given forms. Agreeable to flu vaccine and PCV20. 6 month F/U -Hypertensive CK DHome BP 130/80sDenies chest pain, shortness of breath, dizziness, palpitations -Type 2 diabetesChecks glucose about once a month, has been well controlled.Finished prednisone 1-2 weeks ago Past appt:Infusion, [facility] -10/06/23, every three weeks. Neph, Dr. Hamilton - 09/01/23, labs drawn.Eye exam - 06/09/23Future appt:Neph - dvance directive: Pt given forms. Believes he is due for a prostate exam and colonoscopy. Different viscosity to urine with whitish color x2-3 monthsRare occasions of blood in urine.Is providing urine sample Chronic Conditions *See Chronic Conditions HPI 6 mo f/u Hypertensive CKD Denies any chest pain, sob, dizziness, edema Type 2 diabetes-Monitors BG level at home States that readings have been normalDenies and frequent thirst, urinationAgreeable to flu vaccinePast Appt-Telehealth ASUM 04/14 Chronic Conditions *See Chronic Conditions [facility] Hospital Follow-Up The patient w as seen today for a hospital follow-up visit, after being discharged on 10/12/2022. Details regarding this most recent admission include: Patient presents today for hospital follow-up. He is accompanied by his son, Harshil. He primarily speaks Peruvian. He presented to [facility] on October 10 under the advisement of his hides and skins colorer. He has a history of hypertension, diabetes, ANCA vasculitis, anemia, stage V CKD and hyperlipidemia.He had been reporting increased weakness and fatigue for the past 2 weeks prior to admission and chest pain and increased work of breathing while cutting grass before admission.He had been getting erythropoietin outpatient through hides and skins colorer Dr. Hamilton. Upon admission his hemoglobin was 6.6 and he had additional LEANDRO and hyperkalemia.He was also reporting a productive cough, intermittent dizziness.EKG showing right bundle branch block. Chest x-ray showing no focal infiltrates and without significant congestion with mild thickening of the bronchi and central chest and lower lobes.Due to hemoglobin of 6.4 he was given 1 unit of packed red blood cells. Work-up of anemia through checking B12, folate, iron panel, ferritin and reticulocytes. He was also found to be iron deficient. IV iron was given. Fecal occult blood testing was negative. Recommended resuming erythropoietin outpatient with IV iron. He was prescribed oral supplementation as well.Hemoglobin on October 12 was 7.5.Last colonoscopy was in [address] Beaver. Had rectal and sigmoid polyp. return in 5 years. Will refer back to Dr. Beaver.LEANDRO superimposed on CKD stage VCreatinine was 4.53.HTNACE inhibitor was held and decided to be discontinued and was replaced with amlodipine. Doxazosin continued.Hyperkalemia potassium 6.1. Received Lokelma and closely monitored on telemetryAcute bronchitis given azithromycin and MucinexChest painEcho with normal EF, grade 3 diastolic dysfunction with mild global hypokinesis moderate mitral regurgitation. No regional wall motion abnormalities. Cardiology consulted and felt chest pain likely secondary to anemia and outpatient cardiology clinic advised for stress testing to be considered.Type 2 diabetesDiet controlled A1c 6.6.New meds- Norvasc 5mgZithromax 500mg po dailyIron 325 dailyChanged- Deltasone 5mgDc Home on 10.12.2022.Recommend appointment with hides and skins colorer Dr. Hamilton in 1 week- no appt yet.Professional C[facility] Dr. Good in [facility] 10[facility]/22 at 1500He feels ok until he starts to move around then he gets winded. No CP. He hansa not feel like he needs home health. He has 4 children. Chronic Conditions *See Chronic Conditions HPI Patient encounter Chief complain t: 4 month F/U chronic condtions.-Type 2 diabetesGlucose this morning 135, averages around 130s.Denies hypoglycemia. No longer on insulin-CKDNephrologist Dr. Hamilton OV 03/14/22. F/U . BP yesterday 164/80-84Denies chest pain or shortness of breathgetting regular EPO infusions other Chronic Conditions *See Chronic Conditions HPI Patient encounter Chief complain t: 4 month F/U Chronic conditions.-Nephritic syndrome w/ diffuse crescentic glomerulonephritisNephrology OV 03/14/22. Unsure if F/U scheduled. Home BP 170/72-74-Type 2 diabetesGlucose 102-104 in the mornings. Denies hypoglycemia. Has not been eating other Flu vaccine 1-2 weeks ago.Pfizer booster 12/22/21. Would like to know if he should receive another booster. Chronic Conditions *See Chronic Conditions HPI other -CKD stage 5Home BP well controlledDenies chest pain, shortness of breath, dizziness, light headedness or edema Nephrology OV 10/08/21, F/U in 6 monthswill occasionally have anemia that requires infusion-Type 2 diabetes Glucose well controlled Numbness of feet and cramping of legs, still intermittentStays well hydrated Pt would like to know if the COVID booster vaccine could interact with his medication. Would like to know his cholesterol and potassium levels. Chronic Conditions *See Chronic Conditions HPI Crescentic glomerulonephritis [facility] OV with [employer], Dr. Hamilton 07/16/21Labs drawn last week ordered by Dr. Hamiltonreviewed results, Cr 3.95, GFR 14, HgB 9.7, iron lower, iron sat low, iron binding low, folate high, uric acid high, PTH highDoes not have appt. with Urologist, was referred to Dr. Trujillo. Denies visible blood in urineWeight lossNo change in appetite - pt and dtr both say he is eating wellDenies abdominal pain or nauseadoes have some occasional cough and dizziness Other Lower leg cramps 1-2 months, occasional swelling, has improved with lower amlodipineCramps wake him up during sleep Pfizer booster not administered, advised pt to contact local pharmacy. History of COVID-19 Shortness of breath with bending over or while walkingLosing balance while walking recentlyA few falls, denies injuries. Hypertensive renal disease Home BP 128-149/62-67Denies chest painPositive for occasional dizziness. Chronic Conditions *See Chronic Conditions HPI Chronic Conditions *See Chronic Conditions HPI Hospital Follow-Up The patient w as seen today for a hospital follow-up visit, after being discharged on 06/19/2021. Details regarding this most recent admission include: pt comes in with Dtr Teri Reaves) who is acting as translatorpt was recently admitted again for urinary retention and constipation (had not gone in 4 days)when he was in the hospital he had again LEANDRO on new CKDnephrology was consulted and due to proteinuria he was taken for kidney biopsyhe was found to have ANCA positive cresenteric glomerulonephritishe was started on pulse prednisone and had a PICC placed for rituxinhe was also started on lantus 20u for hyperglycemia from DM as well as steroidshe was given first dose while in the hospital and will continue this once a week for a monthOf note:Between when I saw patient on 06/05 for hospital follow up and new admission on 06/12, he was diagnosed with COVIDhe did receive [facility]/cStill having weakness and occasional shortness of breath but this is improvingUrinary retentionUrination and bowel movements back to normalhas not been able to follow up with urology for hematuria due to repeat hospitalization, no gross bloodBlood sugar this morning was 138has been doing well on lantus 20mg, working well with 60mg PO prednisone dailyBP slightly elevated but this could be from prednisone, will continue the same medications at this timediscussed LEANDRO and CKD with Jeison, at this time too soon to know if he will need dialysis, now that we have the right diagnosis and treatment this should improve but hard to know how much. other Infusion schedul ed at [facility], has a port.Does not have future appt. with Nephrology, Urology or Pulmonology.Lesion right upper back pt recently noticedCausing irritation Irregular in shape Chronic Conditions Hospital Follow-Up The patient w as seen today for a hospital follow-up visit, after being discharged on 06/03/2021. Details regarding this most recent admission include: pt went in to the hospital at my recommendation for worsening renal functionpt was in [facility] from 05[facility]-05/14 for abdominal pain and LEANDRO, on d/c Cr was at 3.2he had repeat labs on 05/24 with Cr up to 4.78, these were ordered and performed at [facility] and I was unable to obtain them until 05/29, pt and family were unsure who ordered and had not been contacted about them before. pt was having worsening abd pain and I recommended ED, family took him to [facility] he went to the ED on 05/29, Cr was >6. nephrology was consulted.there was improvement of kidney function with BP control and IVFCt scan showed CAD and AA as well as 7mm nodule in lingula- there was no obvious cause of renal failureultrasounds of the kidney's was unremarkablelabs showed nephrotic range proteinuriaDM was fairly well controlled, no d/c medications neededhe also had some hematuria and had a long history of smokingurology was consulted and recommended out patient cystoscopyBP medications were adjusted and patient was deemed stable for d/c with [facility]/cpatient had a fall last night as well as some weakness. BP is a little on the low side today. he has also been coughing up blood and this is newdenies chest pain, fevers or SOBhe has not smoked in yearsdiscussed with pt and son Harshil. Harshil and [address] acted as translators as patient is primarily iraqi speakingPt has several children, including Harshil, Radha and Mydedel and Louis brought patient and recommended that we discuss scheduling with [facility] Follow-Up The patient w as seen today for a hospital follow-up visit, after being discharged on 05/14/2021. Details regarding this most recent admission include: pt seen in teleheath for hospital follow upmajority of history and questions translated with dtr Rupinder went to the hospital with worsening abdominal painof note, he was started on metformin XR for elevated A1c, did not tolerate and we discontinued this per my recommendations about 1 week prior to going to the hospitalCTAP showed bibasilar atelectasis, diverticulosis and sequela of ankylosing spondylitis with no acute pathology found.Labs showed LEANDRO with Serum Cr 3.82 (down to 3.19 at day of d/c), A1c 7.1, mild anemiadue to findings on CT, [place] was drawn and found to be positive with 1:160 speckled, 1:80 midnephrology was consulted and was concerned for glomerulonephritisunable to review d/c summarypt did have improvement of kidney functionwas taken off NSAIDssince d/cpatient has been eating well, drinking plenty of fluids and having no urinary issuesdoes have some mild heartburn the last day or sohas only been taking tylenol for painstopped NSAIDsstopped rosuvastatin not taking metformin Telehealth This visit was c ompleted via [facility] Telehealth visit with real time audio and video. All issues as below were discussed and addressed but no physical exam was performed. If it was felt that the patient should be evaluated in clinic then they were directed there. The patient verbally consented to visit.Spent 14 minutes with pt face to face and more that 50% of this time was spent in counseling and coordination of care.Spent 5 minutes in chart review. Chronic Conditions *See Chronic Conditions HPI Chronic Conditions *See Chronic Conditions HPI acute visit Chief complaint: penile injury. Symptoms started 1 weeks ago; are moderate; are worsening. This is a recurrent problem. Skin tear to penis, went to Urgent Care in [place] 03/27/21Prescribed clotrimazole 1% cream to be applied twice a day and oral cephalexin 500mg QID for 7 days with no relief.Bleeding has increased.Does not know the origin of tear..pt is uncircumcised, has occasional issues with irritation around head and foreskinhas used hydrocortisone in the past with some reliefPt requests glucose, A1C and lipid panel drawn today.Agreeable to flu vaccine today.Advised pt we are out of the high dose flu vaccine.pt speaks little Scottish, son Harshil translating COPD Additional infor lina: Occasional shortness of breath.Cough with prolonged speaking.Quit smoke 9 years ago. Atherosclerosis of aorta Denies chest pain, swelling in lower extremitiesArthritis in hands.Would take Aleve or Tylenol prn.no swelling or injury other Pfizer 09/13, 10/04 [facility]Advised pt to call pharmacy for Shingrix.Denies urinary issues or bowel issues.occasional nocturia 2-3 times a nightno pain or hematuriaWould like to know when he should have his prostate checked and next colon screening. Chronic Conditions *See Chronic Conditions [facility] Chronic Conditions *See Chronic Conditions [facility] 12 month follow up Chronic Conditions Functional Status Date Functional Assessmen t No Information Instructions Date Instruction Additional Infor lina 1. Weigh yourself at the same time each day, preferably in the morning after using the bathroom. A sudden weight gain of 2-3 pounds in a day or 5 pounds in a week could indicate fluid retention, a common symptom of heart failure.2. Symptom Tracking: Keep a journal of your symptoms, such as shortness of breath, fatigue, swelling in the legs or abdomen, and increased coughing. Note any changes in the frequency or severity of these symptoms.Contact your doctor if you experience any of the followin. Sudden weight gain2. Severe shortness of breath, especially at rest3. Persistent coughing or wheezing4. Swelling in the legs, ankles, or abdomen that does not improve5. Increased fatigue or weakness6. Chest pain or discomfort7. Dizziness or lightheadedness Related to Chronic diastolic (congestive) heart failure This is hardening of the arteries and has been found on imaging tests in the past. Continue good blood pressure control Related to Atherosclerosis of aorta Please work on regul ar physical activity, well rounded diet, regular sleep schedules and routines and try to socialize as much as safely possible. Related to Body mass index [BMI] 24.0-24.9, adult Continue atorvastatin Related to Mixed hyperlipidemia Your A1c was excelle nt when you are in the hospital. No additional medications needed at this Related to Type 2 diabetes mellitus with other diabetic kidney complication Unfortunately your k idney function is decreasing. You are potentially starting dialysis soon. Follow-up with nephrology as scheduled. Related to Chronic kidney disease, stage 5 Continue supplements and follow-up with nephrology Related to Renal osteodystrophy Continue iron supple ments and pantoprazole Related to Anemia in other chronic diseases classified elsewhere Your blood pressure is fairly well-controlled at this time. Will continue current medications Related to HTN w/ chronic kidney disease stage 5 Dietary management e ducation, guidance, and counseling Related to Body mass index (BMI) 24.0-24.9, adult Flu shot and pneumonia shot toda y Related to Encounter for immunization Unfortunately, this is progressing. The swelling in your legs is likely related to decreased kidney function as well as anemia. Please consider wearing knee-high compression socks during the day to help decrease swelling. Related to Chronic kidney disease, stage 5 Please work on regul ar physical activity, well rounded diet, regular sleep schedules and routines and try to socialize as much as safely possible. Related to Body mass index [BMI] 27.0-27.9, adult I will give you a la b order to get a cholesterol panel and A1c at your next visit/labs for nephrology. Related to Type 2 diabetes mellitus with other diabetic kidney complication Continue calcitriol and supplements as recommended by your hides and skins colorer.Follow-up with me in 6 months, sooner if needed Related to Renal osteodystrophy Your blood pressure is well controlled. Please monitor your blood pressure at home at least once a week or anytime you are feeling dizzy or light headed. Continue the same medications at this time. 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 Related to Anemia in other chronic diseases classified elsewhere Giving encouragement to exercise Related to Body mass index (BMI) 27.0-27.9, adult Dietary management e ducation, guidance, and counseling Related to Body mass index (BMI) 27.0-27.9, adult Will check urine for infection and check PSA Related to Nocturia Please work on regul ar physical activity, well rounded diet, regular sleep schedules and routines and try to socialize as much as safely possible. Related to Body mass index [BMI] 26.0-26.9, adult Will check kidney fu nction and urine for protein today. Follow-up with nephrology as scheduled Related to Chronic kidney disease, stage 4 (severe) You have been doing well on no diabetic medications. Continue monitoring blood sugars occasionally. 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 We will check liver function & lipid panel today. Please call if you develop myalgias. Related to Mixed hyperlipidemia Follow-up with nephshea mendez and get transfusions as needed Related to Anemia in other chronic diseases classified elsewhere Your blood pressure is well controlled. Please monitor your blood pressure at home at least once a week or anytime you are feeling dizzy or light headed. Continue the same medications at this time.follow up in 6 months, sooner if needed Related to Hypertensive chronic kidney disease with stage 1 through stage 4 chronic kidney disease, or unspecified chronic kidney disease Dietary management e ducation, guidance, and counseling Related to Body mass index (BMI) 26.0-26.9, adult Urinary Incontinence Fall Risk Prevention This has been stable in the 4/5 range Related to Chronic kidney disease, stage 4 (severe) Your blood pressure is well controlled. Please monitor your blood pressure at home at least once a week or anytime you are feeling dizzy or light headed. Continue the same medications at this time.Follow up in 6 months, sooner if needed Related to Hypertensive chronic kidney disease with stage 1 through stage 4 chronic kidney disease, or unspecified chronic kidney disease flu shot today Related to Encou nter for immunization Please work on regul ar physical activity, well rounded diet, regular sleep schedules and routines and try to socialize as much as safely possible. 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 They would like you to follow-up with a wine sales representative at [facility]. I will help facilitate this. The name is Dr. Ochoa with any questions or concernsCBC and BMP to be drawn today at the hospitalReturn as scheduled Related to Nonrheumatic mitral valve regurgitation Your diabetes is wel l controlled. The A1c was 6.6. Related to Type 2 diabetes mellitus with other diabetic kidney complication You were given antib iotics in the hospital and you feel that your breathing is back to baseline. Related to Acute bronchitis, unspecified organism you received blood i n the hospital and you will continue to get the infusions to help with the blood counts outpatient. Your next appointment is October 24 at the infusion center at [facility].We will also start the process of sending a referral to Dr. Beaver so you can have another colonoscopy. Your last colonoscopy was in 2018 but this will help make sure that there is no blood loss that could be contributing to the anemia. Related to Anemia in other chronic diseases classified elsewhere This is managed by lisa oreilly kidney specialist.You were started on 5 mg of prednisone.Please follow-up with Dr. 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 Hamilton to schedule an appointment Related to Chronic kidney disease, stage 4 (severe) Your blood pressure is controlled on the new medication. You will continue to stay off of the lisinopril and take amlodipine for blood pressure. Related to Hypertensive chronic kidney disease with stage 1 through stage 4 chronic kidney disease, or unspecified chronic kidney disease Giving encouragement to exercise Related to Body mass index (BMI) 28.0-28.9, adult Disease process Dietary management e ducation, guidance, and counseling Related to Body mass index (BMI) 28.0-28.9, adult Your blood pressure is well controlled. Please monitor your blood pressure at home at least once a week or anytime you are feeling dizzy or light headed. Continue the same medications at this time. Related to Hypertensive chronic kidney disease with stage 1 through stage 4 chronic kidney disease, or unspecified chronic kidney disease You have been well c ontrolled off insulin. Will check A1c and urine for protein today Related to Type 2 diabetes mellitus with other diabetic kidney complication Please work on regul ar physical activity, well rounded diet, regular sleep schedules and routines and try to socialize as much as safely possible. Related to Body mass index [BMI] 28.0-28.9, adult This is hardening of the arteries and has been found on imaging tests in the past. Continue good blood pressure control Related to Atherosclerosis of aorta Please take all medi cations as prescribed. We will check liver function & lipid panel today. Please call if you develop myalgias. Related to Mixed hyperlipidemia PSA today Related to Encou nter for screening for malignant neoplasm of prostate Continue epogen and will check blood counts today Related to Anemia in other chronic diseases classified elsewhere We will check vitami n D and parathyroid levels. Related to Renal osteodystrophy You are being follow ed closely by nephrology. 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 Follow-up with nephrology as scheduled Related to Chronic kidney disease, stage 4 (severe) Giving encouragement to exercise Related to Body mass index (BMI) pediatric, less than 5th percentile for age Dietary management e ducation, guidance, and counseling Related to Body mass index (BMI) pediatric, less than 5th percentile for age Please work on a hea rt healthy, balanced diet and regular physical activity Related to Body mass index [BMI] 28.0-28.9, adult We will check PSA ne xt time he get labs Related to Encounter for screening for malignant neoplasm of prostate Continue current med ications and staying active Related to Renal osteodystrophy Your kidney function is stable. Continue same medications and follow-up with nephrology as scheduled Related to Chronic kidney disease, stage 4 (severe) At this time we will continue the same medications as prescribed. 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 If your A1c is significantly improved we can continue decreasing insulin. Related to Type 2 diabetes mellitus w/ diabetic kidney complication You should be safe t o get the new COVID booster given that you are no longer on any other immunosuppressants other than prednisone Related to Immunosuppression We will recheck chol esterol levels as well as muscle enzymes to see if we should restart this Related to Mixed hyperlipidemia Please work on regul ar physical activity, well rounded diet, regular sleep schedules and routines and try to socialize as much as safely possible. Related to Body mass index [BMI] 27.0-27.9, adult At this time we will continue same medications. Please follow-up with your kidney doctor as scheduled. 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 Related to Chronic kidney disease, stage 5 Dietary management e ducation, guidance, and counseling Related to Body mass index (BMI) 27.0-27.9, adult Giving encouragement to exercise Related to Body mass index (BMI) 27.0-27.9, adult Continue allopurinol and other medications. Related to Renal osteodystrophy This is hardening of the arteries and has been found on imaging tests in the past. 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 Your most recent creatinine was 3.95 and your GFR was 14. Related to Chronic kidney disease, stage 5 We will recheck urin e for any blood. If this does appear I would recommend urology evaluation Related to History of hematuria Please work on a hea rt healthy, balanced diet and regular physical activity Related to Body mass index [BMI] 27.0-27.9, adult Please continue to w ork on healthy well-rounded diet. Related to Weight loss As above, continue 2 0 units at this time Related to prison (current) use of insulin At this time I had gus martinez to continue insulin at 20 units daily. Will check A1c. Sometime down the road, if your kidney function stabilizes and you are no longer on prednisone we can consider discontinuing insulinStatus: Meeting treatment plan goals. Goals: Your goal is to monitor your diabetes. Barriers: No barriers to goal achievement have been identified. Related to Type 2 diabetes mellitus w/ diabetic kidney complication Giving encouragement to exercise Related to Body mass index (BMI) 27.0-27.9, adult Dietary management e ducation, guidance, and counseling Related to Body mass index (BMI) 27.0-27.9, adult Please continue all current medications and let me know if you have worsening cough or shortness of breath Related to Chronic obstructive pulmonary disease, unspecified COPD type Please work on deep breathing and slowly increasing exercise Related to History of COVID-19 Please work on a hea rt healthy, balanced diet and regular physical activity Related to Body mass index [BMI] 30.0-30.9, adult At this time we will continue 20u lantus, please let me know if and when your steroids change and we will update dosage. Please let me know when you need refills. Status: Meeting treatment plan goals. Goals: Your goal is to monitor your diabetes. Barriers: No barriers to goal achievement have been identified. Related to Type 2 diabetes mellitus w/ diabetic kidney complication Your blood pressure is a little elevated, this might be related to your steroids, we will continue to monitor at this time Related to Hypertensive renal disease Continue antibiotics and pantopr azole Related to Immunosuppression Follow up with Dr. Edel ahmadi, no labs today Related to LEANDRO (acute kidney injury) At this time I would like you to continue medication and follow up with Dr. Cabrera as scheduled. It is too soon to know if you will need dialysis. 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 Trujillo at [facility] for evaluation Related to Hematuria, unspecified type We will continue car vedilol and amlodipine but we will cut doxazosin in half. Related to Hypertensive renal disease This is hardening of the arteries and has been found on imaging tests in the past. Continue good blood pressure control Related to Atherosclerosis of aorta Continue heart healt hy dietStatus: Meeting treatment plan goals. Goals: Your goal is to work on healthy eating habits. Barriers: No barriers to goal achievement have been identified. 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 You will be following up with nephrology. Related to LEANDRO (acute kidney injury) as above Related to Mass of lingula of lung With your history of smoking and new onset coughing blood, we will obtain a CT scan of the chest at [facility] Related to Hemoptysis Giving encouragement to exercise Related to Body mass index (BMI) 28.0-28.9, adult Dietary management e ducation, guidance, and counseling Related to Body mass index (BMI) 28.0-28.9, adult With ongoing stomach pain, I will start pantoprazole. We will follow up in a month or 2 Related to Gastroesophageal reflux disease without esophagitis You have planned lab s tomorrow, we will obtain these are review. Related to LEANDRO (acute kidney injury) At this time we will recheck labs and follow up soon. Related to Type 2 diabetes mellitus w/ diabetic kidney complication At this time we will continue rosuvastatin Related to Mixed hyperlipidemia Please work on a hea rt healthy, balanced diet and regular physical activity Related to Body mass index [BMI] 32.0-32.9, adult This is hardening of the arteries and has been found on imaging tests in the past. Continue good blood pressure control.We will check lipids today Related to Atherosclerosis of aorta We will check a1cSta tus: Meeting treatment plan goals. Goals: Your goal is to work on healthy eating habits. Barriers: No barriers to goal achievement have been identified. Related to Prediabetes Please stop clotrima zole and dress with thin layer of vaseline twice a day. 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 Goals: Your goal is to identify and avoid factors that make your symptoms worse. Barriers: No barriers to goal achievement have been identified. Related to Chronic obstructive pulmonary disease, unspecified This is hardening of the arteries and has been found on imaging tests in the past. Continue good blood pressure control Related to Atherosclerosis of aorta We will check prostate blood wor k Related to Nocturia Please work on a hea rt healthy, balanced diet and regular physical activity Related to Body mass index (BMI) 32.0-32.9, adult Dietary management e ducation, guidance, and counseling Related to Body mass index (BMI) 32.0-32.9, adult Giving encouragement to exercise Related to Body mass index (BMI) 32.0-32.9, adult I will re-order the MRI. Related to Abnormal finding on diagnostic imaging of liver we will continue to address modifiable risk factors Related to Atherosclerosis of aorta We will monitor for signs and symptoms of progressive lung disease. Related to Chronic obstructive pulmonary disease, unspecified Disease process Disease process Assessments Type Assessment Date No Information Patient Care Teams Name Effective Dates (start - stop) Status Members No Information
--- OUTSIDE RECORDS SUMMARY | 2024-09-06 15:37 | XMS_ITS | Encounter Summary ---
Author Organization [facility] Address [address] [place] [address] Care Team Providers Care Performance Instructor Name Role Phone Chandler Geronimo Primary Care Provide r Encounter Details Date Type Department Care Team (Late st Contact Info) Description 07/16/2021 Therapy Plan [facility] Infusion Services [place] [id number] David Hamilton MD 3 [facility], [address] [id number] Social History Tobacco Use Types Packs/Day Years Used Date Smoking Tobacco: Never Smokeless Tobacco: Never Alcohol Use Standard Drinks/Week Comments Never 0 (1 standard drink = 0.6 oz pur e alcohol) Sex and Gender Information Value Date Recorded Sex Assigned at Male 07/22/2024 2:00 PM RATING OFFICER Legal Sex Male 2:48 PM RATING OFFICER Gender Identity Not on file Sexual Orientation Not on file COVID-19 Exposure Response Date Recorded In the last 10 days, have yo u been in contact with someone who was confirmed or suspected to have Coronavirus/COVID-19? No / Unsure 07/16/2021 3:48 PM RATING OFFICER documented as of this encounter Functional Status * RETIRED Are you deaf or do you have serious difficulty hearing Answer Date of Assessment Author Status No 06/13/2021 2:44 AM RATING OFFICER Activ e * RETIRED Are you blind or do you have serious difficulty seeing, even when wearing glasses? Answer Date of Assessment Author Status No 06/13/2021 2:44 AM RATING OFFICER Activ e * Do you have serious difficulty walking or climbing stairs? Answer Date of Assessment Author Status No 06/13/2021 2:44 AM Chayo James RN Active * Do you have difficulty dressing or bathing? Answer Date of Assessment Author Status No 06/13/2021 2:44 AM Chayo James RN Active * Because of a physical, mental, or emotional condition, do you have difficulty doing errands alone such as visiting a doctor's office or shopping? Answer Date of Assessment Author Status No 06/13/2021 2:44 AM Chayo James RN Active documented as of this encounter Mental Status * Because of a physical, mental, or emotional condition, do you have serious difficulty concentrating, remembering, or making decisions? Answer Entry Date Author Status No 06/13/2021 2:44 AM Chayo James RN Active documented in this encounter Plan of Treatment Upcoming Encounters Date Type Department Care Team (Late st Contact Info) Description 10/04/2024 11:00 AM CDT Office Visit [facility] [address] [address] Anika Kruger APRN Three [facility] [address] [place] [address] 10/05/2024 9:45 AM CDT Office Visit [facility] [address] [place] [address] Chayo Segura PA 3 [facility] [address] [place] [address] documented as of this encounter Goals Goal Patient Goal Type Associated Problems Recent Progress Patient-Stated? Author Patient will return to prior living situation and remain independent in ADLs upon discharge from hospital General No Aline Krishna, RN documented as of this encounter Visit Diagnoses Diagnosis Anemia in stage 5 chronic kidney disease, not on chronic dialysis ([facility])- Primary documented in this encounter Care Teams Performance Instructor Relationship Specialty Start Date End Date Chandler Geronimo DO [address] [place] [address] PCP - General FAMILY PRACTICE 05/29/21 documented as of this encounter
--- OUTSIDE RECORDS SUMMARY | 2024-09-06 15:37 | XMS_ITS | Encounter Summary ---
Author Organization [facility] Address [address] [place] [address] Care Team Providers Care Smoking Pipe Mounter Name Role Phone ZainabCarleen Goodwinrick Primary Care Provide r Encounter Details Date Type Department Care Team (Late st Contact Info) Description 01/10/2022 Therapy Plan [facility] Infusion Services [place] [id number] David Hamilton MD 3 [facility], [address] [id number] Social History Tobacco Use Types Packs/Day Years Used Date Smoking Tobacco: Never Smokeless Tobacco: Never Alcohol Use Standard Drinks/Week Comments Never 0 (1 standard drink = 0.6 oz pur e alcohol) PHQ-2 Answer Date Recorded PHQ-2 Score - If the patient scores above 3, please move on to questions 3-9 0 09/21/2021 Sex and Gender Information Value Date Recorded Sex Assigned at Male 07/22/2024 2:00 PM CLAMP FORKLIFT OPERATOR Legal Sex Male 2:48 PM CLAMP FORKLIFT OPERATOR Gender Identity Not on file Sexual Orientation Not on file COVID-19 Exposure Response Date Recorded In the last 10 days, have yo u been in contact with someone who was confirmed or suspected to have Coronavirus/COVID-19? No / Unsure 01/10/2022 2:58 PM CDT documented as of this encounter Functional Status * RETIRED Are you deaf or do you have serious difficulty hearing Answer Date of Assessment Author Status No 06/13/2021 2:44 AM CLAMP FORKLIFT OPERATOR Activ e * RETIRED Are you blind or do you have serious difficulty seeing, even when wearing glasses? Answer Date of Assessment Author Status No 06/13/2021 2:44 AM CLAMP FORKLIFT OPERATOR Activ e * Do you have serious [...] Description 10/04/2024 11:00 AM CDT Office Visit [facility] [address] [place] [address] Anika Kruger APRN Three [facility] [address] [place] [address] 10/05/2024 9:45 AM CDT Office Visit [facility] [address] [place] [address] Chayo Segura PA 3 [facility] [address] [place], [place] [id number] documented as of this encounter Goals Goal Patient Goal Type Associated Problems Recent Progress Patient-Stated? Author Patient will return to prior living situation and remain independent in ADLs upon discharge from [facility] General No Aline Krishna, RN documented as of this encounter Visit Diagnoses Not on filedocumented in this encounter Additional Health Concerns Assessment Noted Time PHQ-9 Depression Total Score: 0 08/29/19 22 2:52 PM CDT documented as of this encounter Care Teams Smoking Pipe Mounter Relationship Specialty Start Date End Date Chandler Geronimo DO [address] [place] [address] PCP - General FAMILY PRACTICE 05/29/21 documented as of this encounter
--- OUTSIDE RECORDS SUMMARY | 2024-09-06 15:37 | XMS_ITS | Encounter Summary ---
Author Organization [facility] Address [address] [place] [address] Care Team Providers Care Lead Ramp Agent Name Role Phone Chandler Geronimo DO Primary Care Provide r Encounter Details Date Type Department Care Team (Late st Contact Info) Description 10/21/2022 Therapy Plan [facility] Infusion Services [address] [id number] David Hamilton MD 3 [facility], [address] [id number] Social History Tobacco Use Types Packs/Day Years Used Date Smoking Tobacco: Never Smokeless Tobacco: Never Alcohol Use Standard Drinks/Week Comments Never 0 (1 standard drink = 0.6 oz pur e alcohol) Humiliation, Afraid, Rape, and Kick questionnair e Answer Date Recorded Within the last year, have y ou been afraid of your partner or ex-partner? No 10/10/2022 Within the last year, have y ou been humiliated or emotionally abused in other ways by your partner or ex-partner? No Within the last year, have y ou been kicked, hit, slapped, or otherwise physically hurt by your partner or ex-partner? No 10/10/2022 Within the last year, have y ou been raped or forced to have any kind of sexual activity by your partner or ex-partner? No 10/10/2022 Social Connection and Isolation Panel [NHANES] A nswer Date Recorded In a typical week, how many times do you talk on the phone with family, friends, or neighbors? Patient declined 10/10/2022 How often do you get togethe r with friends or relatives? Patient declined 10/10/2022 How often do you attend baptist or sikhism serv ices? Patient declined 10/10/2022 Do you belong to any clubs o r organizations such as baptist groups, unions, fraternal or athletic groups, or [...] care, and heating? Not hard at all 10/10/2022 PHQ-2 Answer Date Recorded Patient Health Questionnaire-2 Score 0 10/21/2022 [facility] of Occupat ional Health - Occupational Stress [...] the money to buy more. Never true 10/11/19 23 Within the past 12 months, t he food you bought just didn't last and you didn't have money to get more. Never true 10/10/2022 PRAPARE - Transportation Answer Date Re corded In the past 12 months, has l ack of transportation kept you from medical appointments or from getting medications? No 09/30 In the past 12 months, has l ack of transportation kept you from meetings, work, or from getting things needed for daily living? No 10/10/2022 Housing Stability Vital Sign Answer [...] place to sleep or slept in a care home (including now)? No 10/10/2022 Sex and Gender Information Value Date Recorded Sex Assigned at Male 07/22/2024 2:00 PM ELECTRIC BATH ATTENDANT Legal Sex Male 2:48 PM ELECTRIC BATH ATTENDANT Gender Identity Not on file Sexual Orientation Not on file COVID-19 Exposure Response Date Recorded In the last 10 days, have yo u been in contact with someone who was confirmed or suspected to have Coronavirus/COVID-19? No / Unsure 10/24/2022 1:12 PM CDT documented as of this encounter Functional Status * Are you deaf or do you have serious difficulty hearing Answer Date of Assessment Author Status Yes 10/10/2022 9:39 PM CDT Beena Scherer RN Active * Are you blind or do you have serious difficulty seeing, even when wearing glasses? Answer Date of Assessment Author Status No 10/10/2022 9:39 PM CDT Beena Scherer RN Active * Do you have serious difficulty walking or climbing stairs? Answer Date of Assessment Author Status No 10/10/2022 9:39 PM CDT Beena Scherer, ZACHARY Active * Do you have difficulty dressing or bathing? Answer Date of Assessment Author Status No 10/10/2022 9:39 PM CDBeena Arcos RN Active * Because of a physical, mental, or emotional condition, do you have difficulty doing errands alone such as visiting a doctor's office or shopping? Answer Date of Assessment Author Status No 10/10/2022 9:39 PM CDT Beena Scherer RN Active documented as of this encounter Mental Status * Because of a physical, mental, or emotional condition, do you have serious difficulty concentrating, remembering, or making decisions? Answer Entry Date Author Status No 10/10/2022 9:39 PM CDT Beena Scherer RN Active documented in this encounter Plan of Treatment Upcoming Encounters Date Type Department Care Team (Late st Contact Info) Description 10/04/2024 11:00 AM CDT Office Visit [facility], [address] [address] Anika Kruger APRN Three [facility] [address] [facility] [employer], [place] [address] 10/05/2024 9:45 AM CDT Office Visit [facility], [address] [address] Chayo Segura PA 3 [facility] [address] [place] [phone] documented as of this encounter Goals Goal Patient Goal Type Associated Problems Recent Progress Patient-Stated? Author Patient will return to prior living situation and remain independent in ADLs upon discharge from hospital General Aline Russell RN Health - patient able to perform ADLs independently Lifestyle No El Vaughn RN documented as of this encounter Visit Diagnoses Diagnosis Iron deficiency anemia- Primary Iron deficiency anemia, unspecified documented in this encounter Additional Health Concerns Assessment Noted Time PHQ-9 Depression Total Score: 0 03/14/20 22 3:10 PM CDT documented as of this encounter Care Teams Lead Ramp Agent Relationship Specialty Start Date End Date Chandler Geronimo DO [address] [place] [phone] PCP - General FAMILY PRACTICE 05/29/21 documented as of this encounter
[2024-09-06] MEDS: ASPIRIN 81 MG CHEWABLE TABLET 324 MG PO (16:12)
[2024-09-06] MEDS: levoFLOXacin 750 MG/D5W 150 ML 750 MG/150 ML BAG 100 MG IVPB (16:12)
--- NOTE | 2024-09-06 16:18 | P.HP_ITS ---
H&P: HPI History of Present Illness Date/Time: 09/06/24 16:18 Chief Complaint: Chest pain Narrative: 74-year-old male with past medical history of end-stage renal disease on dialysis presented to the ER on account of chest pain. Other was present at the bedside and she reported that patient has been having shortness of breath, shortness lightheadedness and chest pain for a couple weeks in our, he presented to [facility] where he was evaluated and was started on dialysis for end- stage renal disease and had blood transfusion. Patient was discharged about the about a week ago and he continues to have a chest pain. Describes chest pain as sharp, left-sided radiates to shoulder blade. At this encounter he denies any lightheadedness or shortness of breath, no vomiting no diarrhea no abdominal juancarlos n no focal symptoms. ER evaluation notable for temperature is 97.5?, pulse rate 59, respiratory 26, blood pressure 111/44, saturation 96% on room air. Labs notable for WBC 10.2, hemoglobin 7.2, INR is 1.7, BUN 105, creatinine 5.64. Chest x-ray showed left basilar atelectasis versus pneumonia. EKG showed a sinus bradycardia with right bundle-branch block. CT imaging was consulted in the ER reviewed patient on EKG, recommended aspirin Lipitor no heparin infusion a this time due to anemia. Echo pending. Review of Systems Review of Systems: Other systems reviewed and negative except noted in history above. Meds Home Medications and Allergies Allergies Allergy/AdvReac Type Severity Reaction Status Date / Time No Known Allergies Allergy Unverified 09/06/24 13:40 Vital Signs Vital Signs - 24 hr 09/06/24 13:48 09/06/24 13:55 09/06/24 13:59 Temperature 97.5 F L Pulse Rate 59 L 59 L Respiratory Rate 16 26 H Blood Pressure 95/35 L 111/43 L Pulse Oximetry 98 96 100 Oxygen Delivery Room Air Room Air Exam Narrative: General: alert and comfortable Eyes: EOMI, PERRLA ENNT External ears normal, Neck is supple, no masses, Respiratory systems: Clear to auscultation Cardiovascular S1, S2, normal rhythm, no murmur, rub, or gallop; no thrill or palpable murmurs on palpation. Gastrointestinal: soft, non-tender, and non-distended abdomen with no masses; BS present Skin: no rash, lesions, ulcerations, subcutaneous nodules or induration Musculoskeletal: no abnormality and no tenderness, normal ROM Neurologic: Alert and oriented x3, non focal Mental Status Exam: normal affect H&P: Results Labs Labs: Short CBC 09/06/24 Range/Units 14:13 WBC 13.2 H (4.5-10.0) K/mm3 Hgb 7.2 L (14.0-18.0) g/dL Hct 23.2 L (42.0-52.0) % Plt Count 292 (150-375) k/mm3 BMP 09/06/24 14:13 Sodium 131 L Potassium 3.6 Chloride 91 L Carbon Dioxide 26 BUN 105 H Creatinine 5.64 H Glucose 167 H Calcium 8.8 Cardiac Enzymes 09/06/24 Range/Units 14:13 Troponin I < 0.012 (0.000-0.034) ng/mL Liver Function 09/06/24 Range/Units 14:13 Total Bilirubin 0.8 (0.2-1.3) mg/dL AST 29 (17-59) U/L ALT 39 (6-50) U/L Alkaline Phosphatase 169 H (38-126) U/L Albumin 3.4 L (3.5-5.1) g/dL Assessment and Plan Assessment and plan (1) Chest pain: Code(s): R07.9 - Chest pain, unspecified Status: Acute (2) Anemia: Qualifiers: Anemia type: unspecified type Qualified Code(s): D64.9 - Anemia, unspecified Code(s): D64.9 - Anemia, unspecified Status: Acute (3) ESRD on dialysis: Code(s): N18.6 - End stage renal disease; Z99.2 - Dependence on renal dialysis Status: Acute Plan Chest pain patient had point tenderness however cardiology noted due patient being high risk will undergo ischemic eval ECG no acute changes ECHO, A1c, Lipid panel pending, troponin am Aspirin 81mg and Lipitor 80mg daily cardiology following, and noted no Heparin infusion for now due to anemia Possible pneumonia Chest pain with Possible pneumonia on CXR Also leukocytosis Blood and sputum cultures pending CT chest ordered Anemia Hb 7.2 patient was recently managed for pneumonia at [facility] Iron panel and FOBT monitor H and H ESRD with azotemia BUN 105, and cr 5.64 Nephrology consulted DVT prophylaxis on SCDs, no anticoagulation pending GI bleed rule out with FOBT Full code Hospitalist MIPS Advance Care Plan I have confirmed that the patient's Advanced Care Plan is present, code status i s documented, or surrogate decision maker is listed in patient medical record.: Yes Medication Reconciliation I have utilized all available resources to obtain, update and review the patients current medications (includes all prescriptions, OTC, herbals, cannabis, and nutritional supplements).: Yes
--- OUTSIDE RECORDS SUMMARY | 2024-09-06 17:42 | XMS_ITS | Encounter Summary ---
Author Organization [facility] Address [address] [place] [address] Care Team Providers Care Tailer Out Name Role Phone Chandler Geronimo DO Primary Care Provide r Reason for Visit * Reason Onset Date Comments Medication Information 09/01/2024 Encounter Details Date Type Department Care Team (Late st Contact Info) Description 09/01/2024 Telephone [facility] THREE [facility] [address] [place] [address] Chayo Segura PA 3 [facility] [address] [place] [address] Medication Information Social History Tobacco Use Types Packs/Day Years Used Date Smoking Tobacco: Never Smokeless Tobacco: Never Alcohol Use Standard Drinks/Week Comments Never 0 (1 standard drink = 0.6 oz pur e alcohol) [facility] Utilities Answer Date Recorded In the [...] declined 10/10/2022 How often do you attend oriental orthodox or yarsani serv ices? Patient declined 10/10/2022 Do you belong to any clubs o r organizations such as oriental orthodox groups, unions, fraternal or athletic groups, or [...] Recorded Patient Health Questionnaire-2 Score 0 07/26/2024 [facility] [place] of Occupat ional Health - Occupational Stress [...] place to sleep or slept in a detention (including now)? No 10/10/2022 Housing Stability Vital Sign Answer [place] e Recorded In the last 12 months, was t here a time when you were not able to pay the mortgage or rent on time? No 08/24/2024 In the past 12 months, how m any times have you moved where you were living? 0 08/24/2024 At any time in the past 12 m [facility], were you homeless or living in a detention (including now)? 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 [address] [place], [place] [phone] 10/05/2024 9:45 AM CDT Office Visit [facility] THREE [facility] [place] [address] [place] [address] Chayo Segura PA 3 [facility] [address] [place] [address] Scheduled Orders Name Type Priority Associated Diagnoses Orde r Schedule CBC W/DIFF AUTOMATED Lab Routine Atrial fibrillation ([facility] HHS/HCC) Expected: 09/08/2024 (Approximate), Expires: 09/01/2025 documented [...] Visit Diagnoses Diagnosis Atrial fibrillation with RVR ([facility])- Primary Atrial fibrillation Atrial fibrillation ([facility]) Atrial fibrillation documented in this encounter Additional Health Concerns Assessment Noted Time PHQ-9 Depression Total Score: 0 03/14/20 22 3:10 PM CDT documented as of this encounter Care Teams Tailer Out Relationship Specialty Start Date End Date Chandler Geronimo DO [address] [place] [phone] PCP - General FAMILY PRACTICE 05/29/21 documented as of this encounter
--- OUTSIDE RECORDS SUMMARY | 2024-09-06 17:42 | XMS_ITS | Encounter Summary ---
Author Organization [facility] Address [address] [place] [address] Care Team Providers Care Sewing Machine Maintenance Mechanic Name Role Phone Chandler Geronimo DO Primary Care Provide r Encounter Details Date Type Department Care Team (Late st Contact Info) Description 10/21/2022 Therapy Plan [facility] Infusion Services [address] [id number] David Hamilton MD [address] [facility], [address] [phone] Social History Tobacco Use Types Packs/Day Years [...] declined 10/10/2022 How often do you attend congregational or jewish serv ices? Patient declined 10/10/2022 Do you belong to any clubs o r organizations such as congregational groups, unions, fraternal or athletic groups, or [...] Recorded Patient Health Questionnaire-2 Score 0 10/21/2022 [facility] of Occupat ional Health - Occupational Stress [...] place to sleep or slept in a intermediate (including now)? No 10/10/2022 Sex and Gender Information Value Date Recorded Sex Assigned at Male 07/22/2024 2:00 PM ASSIGNMENT DESK ASSISTANT Legal Sex Male 2:48 PM ASSIGNMENT DESK ASSISTANT Gender Identity Not on file Sexual Orientation [...] Description 10/04/2024 11:00 AM CDT Office Visit [facility], [address] [address] Anika Kruger APRN Three [facility] Suite [facility] [place], [place] [address] 10/05/2024 9:45 AM CDT Office Visit [facility], [address] [address] Chayo Segura PA 3 [facility] [address] [place] [phone] documented as of this encounter Goals Goal [...] documented as of this encounter Care Teams Sewing Machine Maintenance Mechanic Relationship Specialty Start Date End Date Chandler Geronimo DO [address] [place] [phone] PCP - General FAMILY PRACTICE 05/29/21 documented as of this encounter
--- OUTSIDE RECORDS SUMMARY | 2024-09-06 17:42 | XMS_ITS | Encounter Summary ---
Author Organization [facility] Address [address] [place] [address] Care Team Providers Care Sample Finisher Name Role Phone FelicianoCarleen Kotharirick Primary Care Provide r Reason for Referral * Surgical (Routine) - New Request Specialty Diagnoses / Procedures Referred By Contac t Referred To Contact Diagnoses ESRD (end stage renal disease) on dialysis ([facility]) Procedures Case request operating room: BRACHIAL CEPHALIC ARTERIOVENOUS FISTULA OR TRANSPOSITION BASILIC VEIN (LEFT ARM) Layton Herrera MD [facility]. [place] [address] [place] [address] Phone: tel: fax: Referral ID Status Reason Start Date Expiration Date V isits Requested Visits Authorized [id number] New Request 06/01/2024 06/01/2025 1 1 CIATE DIRECTOR FINANCE Encounter Details Date Type Department Care Team (Late st Contact Info) Description 06/01/2024 Prep for Procedure [facility] [address] [place] [address] Layton Herrera MD [facility]. [facility] [address] [place] [address] Social History Tobacco Use Types Packs/Day Years Used Date Smoking Tobacco: Never Smokeless Tobacco: Never Alcohol Use Standard Drinks/Week Comments Never 0 (1 standard drink = 0.6 oz pur e alcohol) [facility] Utilities Answer Date Recorded In the past [...] declined 10/10/2022 How often do you attend sikhism or uatsdin serv ices? Patient declined 10/10/2022 Do you belong to any clubs o r organizations such as sikhism groups, unions, fraternal or athletic groups, or [...] Recorded Patient Health Questionnaire-2 Score 0 01/05/2024 [facility] [place] of Occupat ional Health - Occupational Stress [...] place to sleep or slept in a mcc (including now)? No 10/10/2022 Housing Stability Vital Sign Answer [place] Recorded In the last 12 months, was t here a time when you were not able to pay the mortgage or rent on time? No 05/28/2024 In the past 12 months, how m any times have you moved where you were living? 0 05/28/2024 At any time in the past 12 m [facility], were you homeless or living in a mcc (including now)? 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 Not on file Not on file [...] CDT Office Visit [facility] THREE [facility], [place] [address] [place] [address] Anika Kruger APRN Three [facility] [address] [place] [address] 10/05/2024 9:45 AM CDT Office Visit [facility] THREE [facility] [address] [place] [address] Chayo Segura PA 3 [facility] [address] [place] [address] Scheduled Orders Name Type Priority Associated Diagnoses Orde r Schedule Case request operating room: BRACHIAL CEPHALIC ARTERIOVENOUS FISTULA OR TRANSPOSITION BASILIC VEIN (LEFT ARM) Case Request Routine ESRD (end stage renal disease) on dialysis ([facility]) Once for 1 Occurrences starting 06/01/2024 until [...] ESRD (end stage renal disease) on dialysis ([facility])- Primary End stage renal disease documented in this encounter Additional Health Concerns Assessment Noted Time PHQ-9 Depression Total Score: 0 03/14/20 22 3:10 PM CDT documented as of this encounter Care Teams Sample Finisher Relationship Specialty Start Date End Date Chandler Geronimo DO [address] [facility] [place] [phone] PCP - General FAMILY PRACTICE 05/29/21 documented as of this encounter
--- OUTSIDE RECORDS SUMMARY | 2024-09-06 17:42 | XMS_ITS | Continuity of Care Document ---
Author Organization [employer] [facility] Address [address] [place] [address] Phone Care Team Providers Care Marine Gear Keeper Name Role Phone Chandler John DO Unavailable [...] vac INFLUENZA VACCINE, 0.5mL DOSAGE; FLUZONE OFFICE ITIJC-LNP-GKEMGHBR BODY MASS INDEX DOCD SYST BP LT 130 MM HG DIAST BP < 80 MM HG BASIC METABOLIC PANEL(BMP) HEMOGLOBIN A1C HGA1C, GLYCO LIPID PANEL MICROALBUMIN, QN (URINE) CREATININE, (U-R) PSA, TOTAL URINALYSIS W MICROSCOPIC (UA) ROUTINE VENIPUNCTURE IL OFFICE CTVYK-VCR-RXEYMEEK Visit Complexity Inherent To E/M 2023 BODY MASS INDEX DOCD SYST BP LT 130 MM HG DIAST BP < 80 MM HG FALL RISK ASSESSMENT DOC'D PRES/ABSN URINE INCON ASSESS Pt inelig neg scrn depres Admin influenza virus vac FLU VACC 4 BINH 0.5mL DOSAGE OFFICE DYKNQ-BGE-UAMMWJDX BODY MASS INDEX DOCD SYST BP LT 130 MM HG DIAST BP < 80 MM HG No Show Appt Charge DSCHRG MED/CURRENT MED MERGE OFFICE CNXSQ-OMM-RJXI BODY MASS INDEX DOCD SYST BP LT 130 MM HG DIAST BP < 80 MM HG Transitional Care- First 7 Days Of Disch arge CBC, INC PLATELETS AND DIFFERENTIAL COMPREHEN METABOLIC PANEL CMP HEMOGLOBIN A1C HGA1C, GLYCO LIPID PANEL MICROALBUMIN, QN (URINE) CREATININE, (U-R) PSA, TOTAL, SCREENING MEDICARE ONLY PARATHYROID HORMONE (PTH) VITAMIN D, 25-HYDROXY ROUTINE VENIPUNCTURE IL OFFICE CJLKS-YWN-OOKKVPUZ BODY MASS INDEX DOCD SYST BP GE 130 - 139MM HG DIAST BP < 80 MM HG OFFICE NYYBP-KZP-MSRLIHCF BODY MASS INDEX DOCD SYST BP GE 130 - 139MM HG DIAST BP < 80 MM HG Pt inelig neg scrn depres FALL RISK ASSESSMENT DOC'D PRES/ABSN URINE INCON ASSESS OFFICE TVPST-POO-WUHMCIPG BODY MASS INDEX DOCD SYST BP LT 130 MM HG DIAST BP < 80 MM HG HEMOGLOBIN A1C HGA1C, GLYCO URINALYSIS, REFLEX (UA) ROUTINE VENIPUNCTURE OFFICE JMVYM-ZEB-IRGHJSHJ BODY MASS INDEX DOCD SYST BP LT [...] DIAST BP < 80 MM HG OFFICE SHQDU-WBU-PAMJYCJH COMPREHEN METABOLIC PANEL CMP HEMOGLOBIN A1C HGA1C, GLYCO LIPID PANEL ROUTINE VENIPUNCTURE Admin influenza virus vac FLU VACC 4 BINH 0.5mL DOSAGE OFFICE DCRLT-TUQ-QYMKMBLP BODY MASS INDEX DOCD SYST BP GE 130 - 139MM HG DIAST BP < 80 MM HG FALL RISK ASSESSMENT DOC'D PRES/ABSN URINE INCON ASSESS Pt inelig neg scrn depres CBC, INC PLATELETS AND DIFFERENTIAL COMPREHEN METABOLIC PANEL CMP LIPID PANEL PSA, TOTAL, SCREENING MEDICARE ONLY ROUTINE VENIPUNCTURE OFFICE RWALI-KVC-WWOVOQDP BODY MASS INDEX DOCD SYST BP GE 130 - 139MM HG DIAST BP < 80 MM HG HEMOGLOBIN A1C HGA1C, GLYCO CBC, INC PLATELETS AND DIFFERENTIAL COMPREHEN METABOLIC PANEL CMP 9 HEMOGLOBIN A1C HGA1C, GLYCO LIPID PANEL ROUTINE VENIPUNCTURE OFFICE AVXJO-ZKC-UYJYBLQL BODY MASS INDEX DOCD SYST BP LT [...] Diagnoses Date Provider Providers Copied on Encounter [facility], [address], [place], [place], [address] , [place] tel:[phone] [facility] No Information 5 CarlaaleshaShailesh Durantrick. [address] [place] [address], [id number], [place]. tel:[phone] [facility], [address], [place], [place], [address] , [place] tel: [phone] [facility] No Information 5 CarlaaleshaShailesh Durantrick. [address] [place] [address], [id number], [place]. tel:[phone] Referring Provider: Chandler castro, [address] [place] [address], [address] . tel:[phone] [facility], [address], [place], [place], [address] , tel: [phone] [facility] No Information 5 BrauliozebShailesh Arteaga. [address] [place] [address], [id number], [place]. tel:[phone] [facility], [address], [place], [place], [address] , [place] tel: [phone] [facility] No Information 5 BrauliozebShailesh Arteaga. [address] [place] [address], [id number], [place]. tel:[phone] Transitional Care- First 7 Days Of Discharge [facility], [address], [place], [place], [address] , [place] tel: [phone] [facility] Hospital Follow-Up (chief complaint)Oth er (chief complaint)Chr onic Conditions (chief complaint) Chronic kidney disease, stage 5HTN w/ chronic kidney disease stage 5Renal osteodystrop hyAnemia in other chronic diseases classified elsewhereTyp e 2 diabetes mellitus with other diabetic kidney complication Mixed hyperlipidem iaAtheroscle rosis of aortaBody mass index [BMI] 24.0-24.9, adultChronic diastolic (congestive) heart failure 5 Faustino Arteaga. [address] [place] [address], [id number], [place]. tel:[phone] Referring Provider: Chandler castro, [address] [place] [address], [place], [address] . tel:[phone] OFFICE SPTOE-HXB-CSE MAXINE [facility], [address], [place], [place], [address] , [place] tel: [phone] [facility] 6 month F/U (chief complaint)Chr onic [...] complication Encounter for immunization 4 Faustino Arteaga. [address] [place] [address], [id number], [place]. tel:[phone] Referring Provider: Chandler castro, [address] [place] [address], [address] . tel:[phone] [facility], [address], [place], [place], [address] , [place] tel: [phone] [facility] No Information 4 Faustino Arteaga. [address] [place] [address], [id number], [place]. tel:[phone] [facility], [address], [place], [place], [address] , [place] tel:[phone] [facility] No Information 4 Fozia Wiley. [address] [facility], [address] [address], [place], [place], [address], [place]. tel:[phone] Referring Provider: Chandler castro, [place], [address] . tel:[phone] OFFICE XRCAK-WZD-GLH [facility], [address], [place], [place], [address] , tel: [phone] [facility] 6 month F/U (chief complaint)Chr onic [...] neoplasm of colon 4 Faustino Arteaga. [facility] [place], [address], [place]. tel:[phone] Referring Provider: Chandler castro, Padma [facility], [place], [address] . tel:[phone] OFFICE DJGKL-AWM-REN [facility], [address], [place], [place], [address] , tel: [phone] [facility] 6 mo f/u (chief complaint)Chr onic Conditions (chief complaint) Body mass index [BMI] 25.0-25.9, adultAntineu trophilic cytoplasmic antibody [ANCA] vasculitisCh ronic kidney disease, stage 4 (severe)Hype rtensive chronic kidney disease with stage 1 through stage 4 chronic kidney disease, or unspecified chronic kidney diseaseType 2 diabetes mellitus with other diabetic kidney complication Immunodefici ency due to drugsEncount er for immunization 3 Faustino Artaega. [place], [address], [place]. tel:[phone] Referring Provider: Padma Kumar, [place], [address] . tel:[phone] [facility], [address], [place], [place], [address] , [place] tel: [phone] [facility] No Information 3 CarlaaleshaShailesh stone Arteaga. [address] [place] [address], [id number], [place]. tel:[phone] Referring Provider: Chandler castro, [address] [place] [address], [address] . tel:[phone] [facility], [address], [place], [place], [address] , [place] tel: [phone] [facility] Hyperkalemia 3 Nelly [facility]. [address] [place] [address], [address], [place]. tel:[phone] OFFICE CMTWQ-LZA-UUK P [facility], [address], [place], [place], [address] , [place] tel: [phone] [facility] Follow-Up (chief complaint)Chr onic Conditions (chief [...] heumatic mitral valve regurgitatio n 3 Nelly [facility]. [address] [place] [address], [address], [place]. tel:[phone] Referring Provider: Chandler castro, [address] [place] [address], [place], [address] . tel:[phone] [facility], [address], [place], [place], [address] , tel: [phone] [facility] No Information 3 Fozia Saurabh. [address], [id number], . tel:[phone] Referring Provider: Chandler castro, [address] [place] [address], [address] . tel:[phone] OFFICE HONNC-MUO-GDS [facility], [address], [place], [place], [address] , [place] tel: [phone] [facility] Patient encounter (chief complaint)oth er (chief complaint)Chr onic Conditions (chief complaint) ANCA associated vasculitisCh ronic kidney disease, stage 4 (severe)Ilene l osteodystrop hyAnemia in other chronic diseases classified elsewhereTyp e 2 diabetes mellitus with other diabetic kidney complication Mixed hyperlipidem iaAtheroscle rosis of aortaEncu.s. [facility] for screening for malignant neoplasm of prostateBody mass index [BMI] 28.0-28.9, adultHyperte nsive chronic kidney disease with stage 1 through stage 4 chronic kidney disease, or unspecified chronic kidney disease 3 Faustino Arteaga. [address] [place] [address], [id number], [place]. tel:[phone] Referring Provider: Chandler castro, [address] [place] [address], [address] . tel:[phone] OFFICE HZPAP-RPE-FEI [facility], [address], [place], [place], [address] , [place] tel: [phone] [facility] Patient encounter (chief complaint)oth er (chief complaint)Chr onic Conditions (chief complaint) Body mass index [BMI] 28.0-28.9, adultChronic kidney disease, stage 4 (severe)Ilene l osteodystrop hyType 2 diabetes mellitus with other diabetic kidney complication Encounter for screening for malignant neoplasm of prostate 2 Faustino Arteaga. [address] [place] [address], [id number], [place]. tel:[phone] Referring Provider: Chandler castro, [address] [place] [address], [address] . tel:[phone] OFFICE FGAQT-ZJU-ZSB [facility], [address], [place], [place], [address] , tel: [phone] [facility] other (chief complaint)Chr onic Conditions (chief complaint) Body mass index [BMI] 27.0-27.9, adultNephrit ic syndrome w/ diffuse crescentic glomerulonep hritisChroni c kidney disease, stage 5Long term (current) use of insulinType 2 diabetes mellitus w/ diabetic kidney complication Immunosuppre ssionMixed hyperlipidem ia Oct- 2 Faustino Arteaga. [address] [place] [address], [id number], . tel:[phone] Referring Provider: Chandler castro, [address] [place] [address], [address] . tel:[phone] [facility], [address], [place], [place], [address] , tel:[phone] [facility] No Information 2 Faustino Arteaga. [address] [place] [address], [id number], . tel:[phone] OFFICE ZYKKZ-THV-AZU [facility], [address], [place], [place], [address] , tel: [phone] [facility] Crescentic glomeruloneph ritis (chief complaint)His tory of COVID-19 (chief complaint)Hyp ertensive renal disease (chief complaint)Oth er (chief complaint)Chr onic Conditions (chief complaint) Body mass index [BMI] 27.0-27.9, adultType 2 diabetes mellitus w/ diabetic kidney complication buttermaker helper (current) use of insulinChron ic kidney disease, stage 5Weight lossHistory of hematuriaRen al osteodystrop hyNephritic syndrome w/ diffuse crescentic glomerulonep hritisAthero sclerosis of aorta 2 Faustino Arteaga. [address] [place] [address], [place], [place], [address], [place]. tel:[phone] Referring Provider: Chandler castro, [address] [place] [address], [place], [address] . tel:[phone] Transitional Care- First 7 Days Of Discharge [facility], [address], [place], [place], [address] , [place] tel: [phone] [facility] Follow-Up (chief complaint)oth er (chief complaint)Chr onic Conditions (chief complaint) Body mass index [BMI] 30.0-30.9, adultAKI (acute kidney injury)Hyper tensive renal diseaseType 2 diabetes mellitus w/ diabetic kidney complication Crescentic glomerulonep hritisImmuno suppressionH istory of COVID-19Chro emmett obstructive pulmonary disease, unspecified COPD type 2 Faustino Arteaga. [address] [place] [address], [place], [place], [address], [place]. tel:[phone] Referring Provider: Chandler castro, [address] [place] [address], [place], [address] . tel:[phone] [facility], [address], [place], [place], [address] , [place] tel: [phone] [facility] Exposure to COVID-19 virus 2 Faustino Arteaga. [address] [place] [address], [place], [place], [address], [place]. tel:[phone] Referring Provider: Chandler castro, [address] [place] [address], [place], [address] . tel:[phone] Transitional Care- First 7 Days Of Discharge [facility], [address], [place], [place], [address] , [place] tel: [phone] [facility] Follow-Up (chief complaint)Chr onic Conditions (chief complaint) Type 2 diabetes mellitus w/ diabetic kidney complication LEANDRO (acute kidney injury)Hyper tensive renal diseaseBody mass index [BMI] 28.0-28.9, adultAtheros clerosis of aortaAtheros clerotic heart disease of [place] coronary artery without angina pectorisMass of lingula of lungHemoptys isHematuria, unspecified type [address] [facility], [place], [place], [address], [place]. tel:[phone] Referring Provider: Chandler castro, [address] [place] [address], [place], [address] . tel:[phone] OFFICE GMWFC-LMX-ADM [facility], [address], [place], [place], [address] , tel: [phone] [facility] Hospital Follow-Up (chief complaint)Tel [facility] (chief complaint)Chr onic Conditions (chief complaint) Mixed hyperlipidem iaType 2 diabetes mellitus w/ diabetic kidney complication Gastroesopha geal reflux disease without esophagitisA KI (acute kidney injury) 1 Faustino Arteaga. [facility], [place], [place], [address], [place]. [phone] Referring Provider: Chandler castro, [address] [place] [address], [place], [address] . tel:[phone] OFFICE TMICT-KAH-LFG [facility], [address], [place], [place], [address] , [place] tel: [phone] [facility] acute visit (chief complaint)Chr onic Conditions (chief complaint) Body mass index [BMI] 32.0-32.9, adultPrediab etesAtherosc lerosis of aortaBalanit isEncounter for immunization [address] [facility], [place], [place], [address], [place]. tel:[phone] Referring Provider: Chandler castro, [address] [place] [address], [address] . 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 [address] [place] [address], [id number], . tel:[phone] Referring Provider: Chandler castro, [address] [place] [address], [address] . tel:[phone] [facility], [address], [place], [place], [address] , [place] tel:[phone] [facility] No Information 1 Faustino Arteaga. [address] [place] [address], [id number], . tel:[phone] [facility], [address], [place], [place], [address] , [place] tel:[phone] Jer IM Prediabetes 0 Yolis Soria. [address] [facility], [address], [place], [place], [address], [place]. tel:[phone] OFFICE FTIQB-BZX-JXN ANDED [facility], [address], [place], [place], [address] , [place] tel: [phone] Jer IM Chronic Conditions (chief complaint)12 month follow up (chief complaint) Atherosclero sis of aortaChronic obstructive pulmonary disease, unspecifiedA bnormal finding on diagnostic imaging of liver 9 Yolis Soria. [address], [place], [place], [address], [place]. tel:[phone] Referring Provider: Yang Lagos, [address], [place], [address] . tel:[phone] [facility], [address], [place], [place], [address] , [place] tel: [phone] Jer IM Liver mass 9 Yolis Soria. [address], [place], [place], [address], [place]. tel:[phone] [facility], [address], [place], [place], [address] , [place] tel: [phone] Jer IM Epigastric pain 9 Yolis Soria. [address], [place], [place], [address], [place]. tel:[phone] Referring Provider: Yang Lagos, [address], [place], [address] . tel:[phone] [facility], [address], [place], [place], [address] , [place] tel: [phone] Jer IM Atherosclero sis of aortaChronic obstructive pulmonary disease, unspecifiedP rediabetesBe nign neoplasm of colon, unspecified 8 Yolis Soria. [address], [place], [place], [address], [place]. tel:[phone] Referring Provider: Yang Lagos, [address], [place], [address] . tel:[phone] [facility], [address], [place], [place], [address] , [place] tel: [phone] Jer IM Ingrown toenail 7 Yolis Soria. [address], [place], [place], [address], [place]. tel:[phone] [facility], [address], [place], [place], [address] , tel: [phone] [place] [facility] Ingrown toenail Yolis Soria. [address], [place], [address], [place]. tel:[phone] Referring Provider: Yang Lagos, [address], [place], [address] . tel:[phone] [facility], [address], [place], [place], [address] , tel: [phone] Jer IM Chronic obstructive pulmonary disease, unspecified COPD typeTubular adenoma Yolis Soria. [address], [place], [address], [place]. tel:[phone] Referring Provider: Yang Lagos, [address], [place], [address] . tel:[phone] [facility], [address], [place], [place], [address] , tel: [phone] [place] [facility] Abnormal levels of other serum enzymes Yolis Soria. [address], [place], [address], [place]. tel:[phone] Referring Provider: Yang Lagos, [address], [place], [address] . tel:[phone] [facility], [address], [place], [place], [address] , tel: [phone] [place] [facility] Tubular adenomaChron ic obstructive pulmonary disease, unspecified COPD type Sep 6 Yolis Soria. [address], [place], [address], [place]. tel:[phone] Referring Provider: Yang Lagos, [address], [place], [address] . tel:[phone] [facility], [address], [place], [place], [address] , [place] tel: [phone] Jer IM Tubular adenoma 6 Yolis Soria. [address] [facility], [address], [place], [place], [address], [place]. tel:[phone] [facility], [address], [place], [place], [address] , [place] tel: [phone] Jer IM Shortness of breathNon morbid obesity, unspecified obesity typeMidline low back pain without sciaticaChro emmett obstructive pulmonary disease, unspecified COPD typePrediabe tesPrediabet es 6 Yolis Soria. [address] [facility], [address], [place], [place], [address], [place]. [phone] Referring Provider: Yang Lagos, [address] [facility] [address], [place], [address] . tel:[phone] Family History Family Member Type Diagnosis Age [...] administered 21 days apart administered Source: Other [facility] luca Fluzone Quad, split virus, 0.5mL dosage [...] Record Payers Payer name Insurance type Covered republican ID Kaylin morgan(s) [employer] MB [id number] [employer] MB [id number] [employer] MB [id number] [employer] MB [id number] [employer] MB [id number] [employer] MB [id number] Social History Type Description Quantity Date Captured [...] [address] [place], [id number] Ordered: Referrals: Gastroenterology. Peggy Beaver. Evaluation/diagnostic/treatment - Level 3 Appointment date/timeframe: 01/08/2023 ordered Referral Referred To: Dr. Ernst Good Ordered: Referrals: Cardiology. Dr. Ernst Good. Evaluation/diagnostic/treatment - Level 3 ordered Referral Referred To: Dr. Trujillo Ordered: Referrals: Urology. Dr. Trujillo. Evaluation/diagnostic/treatment - Level 3 Appointment date/timeframe: 10/08/2021 ordered Referral Referred To: David Hamilton [address] [place], [place], [phone] Ordered: Referrals: Nephrology. David aHmilton. Evaluation/diagnostic/treatment - Level 3 ordered Referral Referred To: [address] [place], [id number] Ordered: CT chest without contrast ordered Referral Referred To: Watson Corral OD [address] [place], [place], [phone] Ordered: Referrals: Grinder Setup Operator. Watson Corral OD. Evaluation/diagnostic/treatment - Level 3 [...] daughter for hospital follow-up.Patient was seen at [facility] from 05/27 to 06/05.Patient went to the [...] ASUM 04/14 Chronic Conditions *See Chronic Conditions [facility] Hospital Follow-Up The patient w as seen today for a hospital follow-up visit, after being discharged on 10/12/2022. Details regarding this most recent admission include: Patient presents today for hospital follow-up. He is accompanied by his son, Harshil. He primarily speaks Luxembourgish. He presented to [facility] on October 10 under the advisement of his java designer. He has a history of hypertension, diabetes, ANCA vasculitis, anemia, stage V CKD and hyperlipidemia.He had been reporting increased weakness and fatigue for the past 2 weeks prior to admission and chest pain and increased work of breathing while cutting grass before admission.He had been getting erythropoietin outpatient through java designer Dr. Hamilton. Upon admission his hemoglobin was [...] Deltasone 5mgDc Home on 10.12.2022.Recommend appointment with java designer Dr. Hamilotn in 1 week- no appt yet.Fbi Investigator Dr. Good in [facility]St[facility] [...] HPI Crescentic glomerulonephritis La st OV with Lion Trainer, Dr. Hamilton 07/16/21Labs drawn last week ordered [...] how much. other Infusion schedul ed at [facility], has a port.Does not have future appt. [...] recommendation for worsening renal functionpt was in [facility] from 05/11-05/14 for abdominal pain and LEANDRO, on d/c Cr was at 3.2he had repeat labs on 05/24 with Cr up to 4.78, these were ordered and performed at [place] and I was unable to obtain them until 05/29, pt and family were unsure who ordered and had not been contacted about them before. pt was having worsening abd pain and I recommended ED, family took him to [facility] he went to the ED [...] with planned follow up with urology and nephrologysince d/cpatient had a fall last night as well as some weakness. BP is a little on the low side today. he has also been coughing up blood and this is newdenies chest pain, fevers or SOBhe has not smoked in yearsdiscussed with pt and son Harshil. Harshil and [address] acted as translators as patient is primarily sao tomean speakingPt has several children, including Harshil, Radha and Mony and Louis brought patient and recommended that we discuss scheduling with [facility] Follow-Up The patient w as seen today for a hospital follow-up visit, after being discharged on 05/14/2021. Details regarding this most recent admission include: [facility] follow upmajority of history and [...] Telehealth This visit was c ompleted via [facility] Telehealth visit with real time audio and [...] to penis, went to Urgent Care in [place] 03/27/21Prescribed clotrimazole 1% cream to be applied [...] the high dose flu vaccine.pt speaks little Divehi, son Harshil translating COPD Additional infor lina: Occasional shortness of breath.Cough with prolonged speaking.Quit smoke 9 years ago. Atherosclerosis of aorta Denies chest pain, swelling in lower extremitiesArthritis in hands.Would take Aleve or Tylenol prn.no swelling or injury other Quick Hang 09/13, 10/[facility] Shingrix.Denies urinary issues or bowel issues.occasional nocturia 2-3 times a nightno pain or hematuriaWould like to know when he should have his prostate checked and next colon screening. Chronic Conditions *See Chronic Conditions [facility] Chronic Conditions *See Chronic Conditions [facility] 12 month follow up Chronic Conditions Functional Status Date Functional Assessmen t No Information Instructions Date Instruction Deanne mills 1. Weigh yourself at the same time [...] Related to Chronic diastolic (congestive) heart failure Your A1c was excelle nt when you are in the hospital. No additional medications needed at this Related to Type 2 diabetes mellitus with other diabetic kidney complication This is hardening of the arteries and [...] adult Continue atorvastatin Related to Mixed hyperlipidemia Unfortunately your k idney function is decreasing. [...] to Body mass index (BMI) 24.0-24.9, adult I will give you a la b order to get a cholesterol panel and A1c at your next visit/labs for nephrology. Related to Type 2 diabetes mellitus with other diabetic kidney complication Flu shot and pneumonia shot toda y Related to Encounter for immunization Please work on regul ar physical activity, well rounded diet, regular sleep schedules and routines and try to socialize as much as safely possible. Related to Body mass index [BMI] 27.0-27.9, adult Unfortunately, this is progressing. The swelling in your legs is likely related to decreased kidney function as well as anemia. Please consider wearing knee-high compression socks during the day to help decrease swelling. 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 Related to Anemia in other chronic diseases [...] to Body mass index [BMI] 26.0-26.9, adult Follow-up with nephshea mendez and get transfusions as needed Related to Anemia in other chronic diseases classified elsewhere Will check kidney fu nction and urine for protein today. Follow-up with nephrology as scheduled Related to Chronic kidney disease, stage 4 (severe) Please take all medi cations as prescribed. We will check liver function & lipid panel today. Please call if you develop myalgias. Related to Mixed hyperlipidemia Continue current medications Rel ated to Renal osteodystrophy You have been doing well on no diabetic medications. Continue monitoring blood sugars occasionally. 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 Please [...] Fall Risk Prevention This was noted on ultrasound of the heart that was done. They would like you to follow-up with a head transfer clerk at [facility]. I will help facilitate this. The name is Dr. Ochoa with any questions or concernsCBC and BMP to be drawn today at the hospitalReturn as scheduled Related to Nonrheumatic mitral valve regurgitation Your diabetes is wel l controlled. The A1c was 6.6. Related to Type 2 diabetes mellitus with other diabetic kidney complication you received blood i n the hospital and you will continue to get the infusions to help with the blood counts outpatient. Your next appointment is October 24 at the infusion center at [facility].We will also start the process of sending a referral to Dr. Beaver so you can have another colonoscopy. Your last colonoscopy was in 2018 but this will help make sure that there is no blood loss that could be contributing to the anemia. Related to Anemia in other chronic diseases classified elsewhere You were given antib iotics in the hospital and you feel that your breathing is back to baseline. Related to Acute bronchitis, unspecified organism This is managed by lisa oreilly kidney specialist.You were started on 5 mg of prednisone.Please follow-up with Dr. 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 You will continue to stay off of the lisinopril and take amlodipine for blood pressure. Related to Hypertensive chronic kidney disease with stage 1 through stage 4 chronic kidney disease, or unspecified chronic kidney disease We will recheck the kidney labs and [...] to Body mass index [BMI] 28.0-28.9, adult Continue epogen and will check blood counts today Related to Anemia in other chronic diseases classified elsewhere This is hardening of the arteries and [...] for screening for malignant neoplasm of prostate We will check vitami n D and [...] the next time you go to the java designer office to get labs Related to Type 2 diabetes mellitus with other diabetic kidney complication Dietary management e ducation, guidance, and counseling Related to Body mass index (BMI) 28.0-28.9, adult Giving encouragement to exercise Related to Body mass index (BMI) 28.0-28.9, adult Continue 15 units daily at this time Related to correction (current) use of insulin We will work [...] continu e prednisone and follow-up with your java designer as scheduled.Follow-up in 3 months, sooner if needed 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 Your most recent creatinine was 3.95 and your GFR was 14. Related to Chronic kidney disease, stage 5 Please continue to w ork on healthy well-rounded diet. Related to Weight loss Please work on a hea rt healthy, balanced diet and regular physical activity Related to Body mass index [BMI] 27.0-27.9, adult We will recheck urin e for any blood. 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 Suleman ahmadi, no labs today Related to LEANDRO [...] will refer you to Dr. Trujillo at [facility] for evaluation Related to Hematuria, unspecified type [...] identified. 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
--- OUTSIDE RECORDS SUMMARY | 2024-09-06 17:42 | XMS_ITS | Encounter Summary ---
Author Organization [facility] Address [address] [place] [address] Care Team Providers Care X Ray Consultant Name Role Phone Chandler Geronimo Primary Care Provide r Encounter Details Date Type Department Care Team (Late st Contact Info) Description 07/16/2021 Therapy Plan [facility] Infusion Services [place] [id number] David Hamilton MD [address] [facility], [address] [id number] Social History Tobacco Use Types Packs/Day Years Used Date Smoking Tobacco: Never Smokeless Tobacco: Never Alcohol Use Standard Drinks/Week Comments Never 0 (1 standard drink = 0.6 oz pur e alcohol) Sex and Gender Information Value Date Recorded Sex Assigned at Male 07/22/2024 2:00 PM [employer] Legal Sex Male 2:48 PM [employer] Gender Identity Not on file Sexual Orientation Not on file COVID-19 Exposure Response Date Recorded In the last 10 days, have yo u been in contact with someone who was confirmed or suspected to have Coronavirus/COVID-19? No / Unsure 07/16/2021 3:48 PM [employer] documented as of this encounter Functional Status * RETIRED Are you deaf or do you have serious difficulty hearing Answer Date of Assessment Author Status No 06/13/2021 2:44 AM [employer] Activ e * RETIRED Are you blind or do you have serious difficulty seeing, even when wearing glasses? Answer Date of Assessment Author Status No 06/13/2021 2:44 AM DIRECT[employer] Activ e * Do you have serious [...] Description 10/04/2024 11:00 AM CDT Office Visit [facility] [address] [address] Anika Kruger APRN [facility] [address] [place] [address] 10/05/2024 9:45 AM CDT Office Visit [facility] [address] [place] [address] Chayo Segura PA [address] [facility] [address] [place] [address] documented as of this encounter Goals Goal Patient Goal Type Associated Problems Recent Progress Patient-Stated? Author Patient will return to prior living situation and remain independent in ADLs upon discharge from hospital General No Aline Krishna, RN documented as of this encounter Visit Diagnoses Diagnosis Anemia in stage 5 chronic kidney disease, not on chronic dialysis ([facility])- Primary documented in this encounter Care Teams X Ray Consultant Relationship Specialty Start Date End Date Chandler Geronimo DO [address] [place] [address] PCP - General FAMILY PRACTICE 05/29/21 documented as of this encounter
--- OUTSIDE RECORDS SUMMARY | 2024-09-06 17:42 | XMS_ITS | Clinical Summary ---
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 2021 Active doxazosin (CARDURA) 4 MG tabletIndications:CKD (chronic kidney disease) stage 5, GFR less than 15 ml/min (CMS/HCC HHS/HCC),Secondary hyperparathyroidism (HHS/HCC),Primary hypertension,Hyperkal emia Take 1 tablet (4 mg total) by mouth nightly at bedtime. 30 tablet 11 2024 Active calcitriol (ROCALTROL) 0.25 MCG capsuleIndications:Se condary hyperparathyroidism (HHS/HCC) Take 2 capsules (0.5 mcg total) by mouth daily. 180 capsule 3 2024 Active pantoprazole EC (PROTONIX) 40 MG tablet Take 1 tablet (40 mg total) by mouth daily. 2024 Active ferrous sulfate, 65 mg elemental, 325 (65 FE) MG tablet Take 1 tablet (325 mg total) by mouth daily with breakfast. Active sodium bicarbonate 650 MG tablet Take 1 tablet (650 mg total) by mouth daily. Active epoetin rosette-epbx (RETACRIT) 09109 Units/mL injectionIndications: End Stage Renal Disease on Hemodialysis Inject 1 mL (10,000 Units total) into the skin 3 (three) times a week. Indications: Penitentiary Kidney Failure Treated with Hemodialysis On Friday, Friday and Friday with hemodialysis 12 mL 2024 Active allopurinol (ZYLOPRIM) 100 MG tabletIndications:Hyp eruricemia Take 1 tablet (100 mg total) by mouth 3 (three) times a week. On Friday, Friday and Friday after hemodialysis 12 tablet 2024 Active furosemide (LASIX) 40 MG tabletIndications:ESR D (end stage renal disease) on dialysis ([facility]) Take 3 tablets (120 mg total) by mouth 2 (two) times a day, 3 (three) days a week. Take 3 tablets (120 mg total) two times a day on non-dialysis days (Friday, Friday, and Friday) 96 tablet 2024 Active B ldgmbxi-R-nitmv acid 0.8 mg (DIALYVITE/NEPHRO-VIT E) Tab tabletIndications:End stage renal disease ([facility]) Take 1 tablet by mouth daily. 30 tablet 2024 Active calcium carbonate (TUMS) 500 MG chewable tabletIndications:Hyp erphosphatemia Chew 1 tablet (500 mg total) by mouth 3 (three) times daily before meals. 2024 Active amiodarone 400 MG Tab Take 200 mg by mouth daily. 30 tablet 2024 Active metoprolol tartrate (LOPRESSOR) 25 MG tablet Take 1 tablet (25 mg total) by mouth 2 (two) times daily. 60 tablet 2024 Active lidocaine 4 % patch Place 1 patch onto the skin daily. Remove & Discard patch within 12 hours or as directed by 30 patch 2024 Active apixaban (ELIQUIS) 5 MG tablet Take 1 tablet (5 mg total) by mouth 2 (two) times daily. 60 tablet 2 2024 Active allopurinol (ZYLOPRIM) 100 MG tabletIndications:Hyp eruricemia TAKE 2 TABLETS(200 MG) BY MOUTH DAILY 180 tablet 3 08/31 Discontinued amLODIPine (NORVASC) 10 MG tabletIndications:Dixie christiana hypertension Take 1 tablet (10 mg total) by mouth daily. 90 tablet 3 09/01 Discontinued( Stop Taking at Discharge) epoetin rosette-epbx (RETACRIT) 90821 Units/mL injectionIndications: Anemia in stage 5 chronic kidney disease, not on chronic dialysis ([facility]) Inject 4 mLs (40,000 Units total) into the skin every 14 (fourteen) days. New dose 6 mL 6 09/01 Discontinued( Stop Taking at Discharge) furosemide (LASIX) 80 MG tabletIndications:CKD (chronic kidney disease) stage 5, GFR less than 15 ml/min ([facility]) Take 1.5 tablets (120 mg total) by mouth 2 (two) times daily. 270 tablet 3 09/01 Discontinued( Stop Taking at Discharge) Active Problems Problem Noted Date Diagnosed Date Atrial fibrillation with RVR ([facility]) 0 08/24/2024 Diastolic heart failure ([facility]) 2024 ESRD (end stage renal diseas e) on dialysis ([facility]) 06/01/2024 GIB (gastrointestinal bleeding) 05/27/2024 Hyperlipidemia 12/23/2022 Iron deficiency anemia 10/21/2022 LEANDRO (acute kidney injury) 10/11/2022 Anemia due to chronic renal failure treated with erythropoietin, unspecified CKD stage 10/10/2022 CKD (chronic kidney disease) stage 4, GFR 15-29 ml/min ([facility]) 11/22/2021 Albuminuria 10/08/2021 Vitamin D insufficiency 08/30/2021 Acidosis 07/16/2021 Hyperuricemia 07/16/2021 Anemia in stage 5 chronic ki dney disease, not on chronic dialysis ([facility]) 06/28/2021 Primary hypertension 06/28/2021 Type 2 diabetes mellitus wit h stage 5 chronic kidney disease not on chronic dialysis, unspecified whether skilled nursing insulin use ([facility]) 06/28/2021 ANCA-associated vasculitis ([facility]) Edema, unspecified type 06/28/2021 Acute kidney injury 05/29/2021 Resolved Problems Problem Noted Date Diagnosed Date Resolved Date Pneumonia 06/13/2021 06/19/2021 Encounters Date Type Department Care Team Description 09/03/2024 Hospital Follow-up Call [facility] Care Management [address] [facility] [place] [address] Jen Larson LPN Follow Up Call (MARA 08/24-09/01/24) 09/01/2024 Telephone [facility], [place] [address] [place] [address] Chayo Segura PA Medication Information 09/01/2024 TravelAIt Message Enc [facility] - [address], [facility] [address] [place] [phone] Tirso Cooper MD question 08/31/2024 Telephone [facility] - [facility] [address] [facility], [facility] [address] [place] [phone] Tirso Cooper MD Question 08/26/2024 Telephone [facility] - [facility] [address] [facility], [facility] [address] [place] [phone] Tirso Cooper MD Question; Referral 08/24/2024 2:18 PM CDT - 09/01/2024 2:42 PM CDT Hospital Encounter [facility] [place] [address] Ismael Brennan MD Jumean, Khaled, MD Conti, John R, ANGELAC Radha House, DATA CLERK [place]anna Hawk, WILDER Woodson, Christiana Centeno, ALEX Dizziness; Chest Pain Discharge Disposition: Home or Self Care (Routine Discharge) 08/24/2024 Telephone [facility] Medical [facility] - [facility] [address] [facility], [facility] [address] [place] [phone] Tirso Cooper MD Information 08/24/2024 Travel 08/24/2024 Telephone [facility] [address] [phone] Tirso Cooper MD Question 08/23/2024 Telephone [facility] [address] [phone] Tirso Cooper MD Error 08/20/2024 3:20 PM CDT - 08/20/2024 11:59 PM CDT Hospital Encounter [facility] Diagnostic [place] [address] Tirso Cooper MD Discharge Disposition: Home or Self Care (Routine Discharge) 08/20/2024 3:20 PM CDT Hospital Encounter [facility] [place] [address] Tirso Cooper MD Discharge Disposition: Home or Self Care (Routine Discharge) 08/20/2024 Travel 08/20/2024 Telephone [facility] - [facility] [address] [facility], [place] [address] [place] [address] Tirso Cooper MD Information 08/19/2024 3:00 PM CDT Treatment [facility] [place] [address] Tirso Cooper MD Injection 08/19/2024 Orders Only [facility] - [facility] [address] [facility], [place] [address] [place] [address] Tirso Cooper MD 08/19/2024 Telephone [facility] - [address], [facility] [address] [place] [address] Tirso Cooper MD Information 08/19/2024 Travel 08/16/2024 Telephone [facility] [address] [phone] Tirso Cooper MD Error 08/05/2024 3:00 PM TOOTH CUTTER CONTACT WHEEL Treatment [facility] [address] Tirso Cooper MD Injection 08/05/2024 Travel 07/29/2024 Telephone [facility] Nephrology Specialty [address] [phone] Tirso Cooper MD Medication 07/28/2024 MyChart Message Enc [facility]ty [address] [phone] [facility] Provider Orders 07/28/2024 Orders Only [facility] [place] [address] Tirso Cooper MD 07/26/2024 11:52 AM TOOTH CUTTER CONTACT WHEEL - 07/26/2024 11:59 PM TOOTH CUTTER CONTACT WHEEL Hospital Encounter [facility] [place] [address] Tirso Cooper MD Discharge Disposition: Home or Self Care (Routine Discharge) 07/26/2024 11:00 AM TOOTH CUTTER CONTACT WHEEL Office Visit [facility] - [address], [facility] [address] [place] [address] Tirso Cooper MD CKD Follow-up 07/26/2024 Telephone [facility] Medical [facility] - [address], [place] [address] [place] [phone] Tirso Cooper MD Results 07/26/2024 Telephone [facility] [address] [phone] Tirso Cooper MD Results 07/26/2024 Travel 07/22/2024 3:00 PM TOOTH CUTTER CONTACT WHEEL Treatment [facility] [place] [address] Tirso Cooper MD 07/22/2024 2:15 PM TOOTH CUTTER CONTACT WHEEL [facility] [place] [address] [place] [address] Layton Herrera MD Surgery Follow Up 07/22/2024 Travel 07/16/2024 Orders Only [facility] - [address], [address] [address] [place] [address] Tirso Cooper MD 07/15/2024 Telephone [facility] [address] [phone] Tirso Cooper MD Medication 07/14/2024 Orders Only [facility] - [address], [place] [address] [place] [address] Christiana Goel LPN 07/08/2024 3:00 PM TOOTH CUTTER CONTACT WHEEL Treatment [facility] [place] [address] Tirso Cooper MD 07/08/2024 Travel 07/07/2024 Orders Only [facility] - [address], [place] [address] [place] [address] Tirso Cooper MD 06/24/2024 3:00 PM TOOTH CUTTER CONTACT WHEEL Treatment [facility] Infusion Services at [facility] [place] [address] Tirso Cooper MD 06/24/2024 Travel 06/17/2024 MyChart Message Enc [facility], [place] [address] [place] [address] Layton Herrera MD Patient Jayleen Cook 06/14/2024 2:20 PM TOOTH CUTTER CONTACT WHEEL [facility] [address], [address] [address] [place] [address] Tirso Cooper MD Chronic Kidney Disease 06/14/2024 Travel 06/11/2024 Orders Only [facility] - [address], [place] [address] [place] [address] Tirso Cooper MD 06/10/2024 3:00 PM TOOTH CUTTER CONTACT WHEEL Treatment [facility] Infusion Services at [facility] [place] [address] Tirso Cooper MD Injection 06/10/2024 Travel 06/08/2024 [facility]phone [facility] - [address] [place] [address] Roger Easton MD Results from Last 3 Months Immunizations Name Administration Dates Next Due Influenza (Generic) 05/03/2024,02/18/2014 Influenza Adult (Generic) 04/17/2023,04/05/2021 PFIZER COVID-19 (ORIGINAL FO RMULATION, PURPLE CAP) mRNA, LNP-S, PF, 30 MCG/0.3 ML DOSE 12/22/2021,10/04/2020 Pneumococcal (Pneumovax 23) 02/18/2014, 4 Pneumococcal (Prevnar 13) 11/26/2017 Pneumococcal (Prevnar 20) 05/03/2024 Tdap (Generic) 08/27/2016,02/25/2016 Zoster (Zostavax) 30530 Unt/0.65Ml 02/25/2016 Family History Medical History Relation Comments Hypertension Father No Known Problems Mother Asthma Neg Hx Relation Status Comments Brother Alive Father (Age 94) Mother (Age 53) Sister 1 Alive Sister 2 (Age 28) Social History Tobacco Use Types Packs/Day Years Used Date Smoking Tobacco: Never Smokeless Tobacco: Never Tobacco Cessation:Counseling Given: No Alcohol Use Standard Drinks/Week Comments Never 0 (1 standard drink = 0.6 oz pur e alcohol) [facility] [employer] Answer Date Recorded In the past 12 months has [employer], oil, or water [employer] threatened to shut off services in your [...] declined 10/10/2022 How often do you attend nondenominational or faith serv ices? Patient declined 10/10/2022 Do you belong to any clubs o r organizations such as nondenominational groups, unions, fraternal or athletic groups, or [...] Recorded Patient Health Questionnaire-2 Score 0 07/26/2024 [facility] Occupational Stress Questionnaire Answer [...] place to sleep or slept in a retirement (including now)? No 10/10/2022 Housing Stability Vital Sign Answer [place] e Recorded In the last 12 months, was t here a time when you were not able to pay the mortgage or rent on time? No 08/24/2024 In the past 12 months, how m any times have you moved where you were living? 0 08/24/2024 At any time in the past 12 m [facility], were you homeless or living in a retirement (including now)? 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 [employer] Not on cindy e Not on file Not on file Last Filed Vital Signs Vital Sign Reading Time Taken Comments Blood Pressure 144/44 09/01/2024 12:57 PM CDT Pulse 61 09/01/2024 12:57 PM CDT Temperature 37 C (98.6 F) 09/01/2024 12:57 PM CDT Respiratory Rate 18 09/01/2024 12:57 PM CDT Oxygen Saturation 100% 09/01/2024 12:57 PM CDT Inhaled Oxygen Concentration - - Weight 73.6 kg (162 lb 4.1 oz) 09/01/2024 4:21 A M CDT Height 175.3 cm (5' 9 ) 08/24/2024 2:14 PM CDT Body Mass Index 23.96 08/24/2024 2:14 PM CDT Plan of Treatment Upcoming Encounters Date Type Department Care Team (Late st Contact Info) Description 10/04/2024 11:00 AM CDT Office Visit [facility], [place] [address] [place] [address] Anika Kruger APRN [facility] [address] [place] [address] 10/05/2024 9:45 AM CDT Office Visit [facility], [place] [address] [place] [address] Chayo Segura PA 3 [facility] [address] [place], [place] [phone] Health Maintenance Due Date Last Done Comments Diabetes: Retinopathy Eye Exam 12/31/1967 Annual Medicare Wellness Visit 12/31/2012 Zoster Vaccines (2 of 3) 04/21/2016 02/25/2016 RSV Immunization or 60+ Years (1 - 1-dose 75+ series) 12/31/2022 COVID-19 Vaccine ( season) 2024 12/22/2021, 10/04/2020, 09/13/2020, Additional history exists Lipid Panel 10/19/2024 10/20/2023, 09/30, 11/12/2021, Additional history exists Hemoglobin A1C 02/25/2025 08/25/2024, 05/03, 07/24/2023, Additional history exists DTaP, Tdap and Td Vaccines (3 - Td or Tdap) 08/27/2026 08/27/2016, 02/25/2016 Hepatitis C Completed 05/30/2021 Pneumococcal Vaccine: 65+ Years Completed 05/03/2024, 11/26/2017, 02/18/2014, Additional history exists Colorectal Cancer Screening Colonoscopy (10 Years) Discontinued 05/29/2024 PHQ-2 (Physician [place]) Completed 07/26/2024 Colorectal Cancer Screening FIT/FOBT (1 Year) Discontinued 08/28/2024, 05/27/2024, 10/11/2022 Meningococcal B Vaccine Aged Out No l onger eligible based on patient's age to complete this topic Meningococcal Vaccine Aged Out No sd laith eligible based on patient's age to complete this topic RSV Immunizations Under 20 Months Aged Out No longer eligible based on patient's age to complete this topic Goals Goal Patient Goal Type Associated Problems Recent Progress Patient-Stated? Author Patient will return to prior living situation and remain independent in ADLs upon discharge from [facility] General Aline Russell RN Health - patient able to perform ADLs independently Lifestyle No El Vaughn RN Family - family caregiver with be involved in care transitions and discharge planning Lifestyle No Abby Eng RN Procedures Procedure Name Priority Date/Time Associated Diagnosis Comments POCT GLUCOSE - STILES DOCKED DEVICE Routine 09/01/2024 12:55 PM CDT CBC W/DIFF AUTOMATED Routine 09/01/2024 6:32 AM CDT BASIC METABOLIC PANEL Routine 09/01/2024 6:32 AM CDT POCT GLUCOSE - STILES DOCKED DEVICE Routine 09/01/2024 5:38 AM CDT POCT GLUCOSE - STILES DOCKED DEVICE Routine 08/31/2024 8:02 PM CDT POCT GLUCOSE - STILES DOCKED DEVICE Routine 08/31/2024 4:14 PM CDT POCT GLUCOSE - STILES DOCKED DEVICE Routine 08/31/2024 10:51 AM CDT POCT GLUCOSE - STILES DOCKED DEVICE Routine 08/31/2024 5:57 AM CDT PHOSPHORUS, INORGANIC PHOSPHATE Routine 08/31/2024 5:57 AM CDT MAGNESIUM Routine 08/31/2024 5:57 AM CDT BASIC METABOLIC PANEL Routine 08/31/2024 5:01 AM CDT CBC W/DIFF AUTOMATED Routine 08/31/2024 5:01 AM CDT CBC W/DIFF AUTOMATED STAT 08/30/2024 7:57 PM CDT POCT GLUCOSE - STILES DOCKED DEVICE Routine 08/30/2024 6:59 PM CDT POCT GLUCOSE - STILES DOCKED DEVICE Routine 08/30/2024 3:30 PM CDT POCT GLUCOSE - STILES DOCKED DEVICE Routine 08/30/2024 5:24 AM CDT POCT GLUCOSE - STILES DOCKED DEVICE Routine 08/29/2024 7:22 PM CDT POCT GLUCOSE - STILES DOCKED DEVICE Routine 08/29/2024 4:17 PM CDT MRI ENTEROGRAPHY Today 08/29/2024 12:0 1 PM CDT POCT GLUCOSE - STILES DOCKED DEVICE Routine 08/29/2024 10:38 AM CDT POCT GLUCOSE - STILES DOCKED DEVICE Routine 08/29/2024 5:32 AM CDT BASIC METABOLIC PANEL Routine 08/29/2024 5:11 AM CDT CBC W/DIFF AUTOMATED Routine 08/29/2024 5:11 AM CDT POCT GLUCOSE - STILES DOCKED DEVICE Routine 08/28/2024 7:32 PM CDT POCT GLUCOSE - STILES DOCKED DEVICE Routine 08/28/2024 3:43 PM CDT POCT GLUCOSE - STILES DOCKED DEVICE Routine 08/28/2024 11:58 AM CDT OCCULT BLOOD, FECES Routine 08/28/2024 1 1:48 AM CDT POCT GLUCOSE - STILES DOCKED DEVICE Routine 08/28/2024 5:17 AM CDT BASIC METABOLIC PANEL Routine 08/28/2024 4:57 AM CDT CBC W/DIFF AUTOMATED Routine 08/28/2024 4:57 AM CDT POCT GLUCOSE - STILES DOCKED DEVICE Routine 08/27/2024 7:48 PM CDT POCT GLUCOSE - STILES DOCKED DEVICE Routine 08/27/2024 4:07 PM CDT POCT GLUCOSE - STILES DOCKED DEVICE Routine 08/27/2024 1:18 PM CDT POCT GLUCOSE - STILES DOCKED DEVICE Routine 08/27/2024 5:54 AM CDT CBC W/DIFF AUTOMATED Routine 08/27/2024 5:23 AM CDT COMPREHENSIVE METABOLIC PANEL Routine 08/27/2024 5:23 AM CDT MAGNESIUM Routine 08/27/2024 5:23 AM CDT POCT GLUCOSE - STILES DOCKED DEVICE Routine 08/26/2024 7:08 PM CDT POCT GLUCOSE - STILES DOCKED DEVICE Routine 08/26/2024 4:19 PM CDT POCT GLUCOSE - STILES DOCKED DEVICE Routine 08/26/2024 12:56 PM CDT TRANSFUSE RED BLOOD CELLS Routine 2024 10:41 AM CDT POCT GLUCOSE - STILES DOCKED DEVICE Routine 08/26/2024 6:14 AM CDT HEPARIN, ANTI XA, UFH TIMED 08/26/2024 6:05 AM CDT FOLIC ACID SERUM Routine 08/26/2024 6:05 AM CDT VITAMIN B-12 Routine 08/26/2024 6:05 AM CDT FERRITIN Routine 08/26/2024 6:05 AM CDT IRON SAT PANEL (IRON,IBC,%SAT) Routine 08/26/2024 6:05 AM CDT CBC W/DIFF AUTOMATED Routine 08/26/2024 6:05 AM CDT COMPREHENSIVE METABOLIC PANEL Routine 08/26/2024 6:05 AM CDT MAGNESIUM Routine 08/26/2024 6:05 AM CDT TYPE & SCREEN Routine 08/26/2024 1:11 AM CDT HEMOGLOBIN AND HEMATOCRIT TIMED 2024 1:11 AM CDT HEMOGLOBIN AND HEMATOCRIT Routine 2024 8:39 PM CDT POCT GLUCOSE - STILES DOCKED DEVICE Routine 08/25/2024 8:01 PM CDT USE ECHO 2D FU LTD W CON Today 025 4:54 PM CDT POCT GLUCOSE - STILES DOCKED DEVICE Routine 08/25/2024 3:35 PM CDT POCT GLUCOSE - STILES DOCKED DEVICE Routine 08/25/2024 11:01 AM CDT HEPARIN, ANTI XA, UFH TIMED 08/25/2024 6:44 AM CDT PHOSPHORUS, INORGANIC PHOSPHATE Routine 08/25/2024 6:44 AM CDT COMPREHENSIVE METABOLIC PANEL Routine 08/25/2024 6:44 AM CDT MAGNESIUM Routine 08/25/2024 6:44 AM CDT HEMOGLOBIN, GLYCOSYLATED Routine 025 6:44 AM CDT CBC W/DIFF AUTOMATED Routine 08/25/2024 6:44 AM CDT POCT GLUCOSE - STILES DOCKED DEVICE Routine 08/25/2024 6:22 AM CDT HEPARIN, ANTI XA, UFH TIMED 08/25/2024 12:40 AM CDT POCT GLUCOSE - STILES DOCKED DEVICE Routine 08/24/2024 9:58 PM CDT POCT GLUCOSE - STILES DOCKED DEVICE Routine 08/24/2024 8:21 PM CDT PRO-BRAIN NATRIURETIC PEPTIDE STAT 08/24/2024 8:[address] HEAD WO CON STAT 08/24/2024 4:59 PM CDT ELECTROCARDIOGRAM REPORT Routine 025 4:25 PM CDT ELECTROCARDIOGRAM REPORT Routine 025 4:24 PM CDT ECG 12-LEAD STAT 08/24/2024 4:12 PM CDT TROPONIN, QUANT STAT 08/24/2024 4:08 PM CDT LIPASE STAT 08/24/2024 3:36 PM CDT LACTIC ACID W REFLEX (SEPSIS) STAT 08/24/2024 3:36 PM CDT PARTIAL THROMBOPLASTIN TIME,PTT STAT 08/24/2024 3:36 PM CDT PROTHROMBIN TIME, VENOUS STAT 025 3:36 PM CDT XR CHEST PORTABLE STAT 08/24/2024 2:4 0 PM CDT TROPONIN, QUANT STAT 08/24/2024 2:26 PM CDT COMPREHENSIVE METABOLIC PANEL STAT 08/24/2024 2:26 PM CDT CBC W/DIFF AUTOMATED STAT 08/24/2024 2:26 PM CDT ECG 12-LEAD STAT 08/24/2024 2:11 PM CDT XR CHEST PA+LAT Routine 08/20/2024 3:52 PM CDT ESRD (end stage renal disease) (CMS/HCC HHS/HCC) HEPATITIS B CORE ANTIBODY Routine 2024 3:42 PM CDT ESRD (end stage renal disease) (CMS/HCC HHS/HCC) HEPATITIS B SURFACE ANTIBODY Routine 08/20/2024 3:42 PM CDT ESRD (end stage renal disease) (CMS/HCC HHS/HCC) HEPATITIS B SURFACE AG, EIA Routine 08/20/2024 3:42 PM CDT ESRD (end stage renal disease) (CMS/HCC HHS/HCC) PTH - INTACT Routine 08/20/2024 3:42 PM CDT CKD (chronic kidney disease) stage 5, GFR less than 15 ml/min (CMS/HCC HHS/HCC) CBC, AUTO, NO DIFF Routine 08/20/2024 3: 42 PM CDT CKD (chronic kidney disease) stage 5, GFR less than 15 ml/min (CMS/HCC HHS/HCC) BASIC METABOLIC PANEL Routine 08/20/2024 3:42 PM CDT CKD (chronic kidney disease) stage 5, GFR less than 15 ml/min (CMS/HCC HHS/HCC) CBC W/DIFF AUTOMATED Routine 08/19/2024 3:37 PM CDT Anemia in stage 5 chronic kidney disease, not on chronic dialysis (CMS/HCC HHS/HCC) COMPREHENSIVE METABOLIC PANEL Routine 08/05/2024 3:45 PM TOOTH CUTTER CONTACT WHEEL Anemia in stage 5 chronic kidney disease, not on chronic dialysis (CMS/HCC HHS/HCC) CBC W/DIFF AUTOMATED Routine 08/05/2024 3:45 PM TOOTH CUTTER CONTACT WHEEL Anemia in stage 5 chronic kidney disease, not on chronic dialysis (CMS/HCC HHS/HCC) CBC, AUTO, NO DIFF Routine 07/26/2024 12 :13 PM TOOTH CUTTER CONTACT WHEEL CKD (chronic kidney disease) stage 5, GFR less than 15 ml/min (CMS/HCC HHS/HCC) URIC ACID BLOOD Routine 07/26/2024 12:13 PM TOOTH CUTTER CONTACT WHEEL CKD (chronic kidney disease) stage 5, GFR less than 15 ml/min (CMS/HCC HHS/HCC) PTH - INTACT Routine 07/26/2024 12:13 PM TOOTH CUTTER CONTACT WHEEL CKD (chronic kidney disease) stage 5, GFR less than 15 ml/min (CMS/HCC HHS/HCC) BASIC METABOLIC PANEL Routine 07/26/2024 12:13 PM TOOTH CUTTER CONTACT WHEEL CKD (chronic kidney disease) stage 5, GFR less than 15 ml/min (CMS/HCC HHS/HCC) VITAMIN D, 25 OH Routine 07/26/2024 12:1 3 PM TOOTH CUTTER CONTACT WHEEL CKD (chronic kidney disease) stage 5, GFR less than 15 ml/min (CMS/HCC HHS/HCC) HEMOGLOBIN AND HEMATOCRIT Routine 2024 1:55 PM [employer] Anemia in stage 5 chronic kidney disease, not on chronic dialysis (CMS/HCC HHS/HCC) CBC, AUTO, NO DIFF Routine 06/10/2024 3: 03 PM [employer] CKD (chronic kidney disease) stage 5, GFR less than 15 ml/min (CMS/HCC HHS/HCC) IRON SAT PANEL (IRON,IBC,%SAT) Routine 06/10/2024 3:03 PM [employer] Anemia in stage 5 chronic kidney disease, not on chronic dialysis (CMS/HCC HHS/HCC) FOLIC ACID SERUM Routine 06/10/2024 3:03 PM [employer] Anemia in stage 5 chronic kidney disease, not on chronic dialysis (CMS/HCC HHS/HCC) FERRITIN Routine 06/10/2024 3:03 PM [employer] Anemia in stage 5 chronic kidney disease, not on chronic dialysis (CMS/HCC HHS/HCC) VITAMIN B-12 Routine 06/10/2024 3:03 PM [employer] Anemia in stage 5 chronic kidney disease, not on chronic dialysis (CMS/HCC HHS/HCC) BASIC METABOLIC PANEL Routine 06/10/2024 3:03 PM [employer] Anemia in stage 5 chronic kidney disease, not on chronic dialysis (CMS/[facility] HHS/HCC) LEANDRO (acute kidney injury) LIPID PANEL Routine 10/12/2022 7:06 AM CDT HEPATITIS PANEL,ACUTE Routine 05/30/2021 1:20 PM [employer] from Last 3 Months or Most Recently Relevant to Health Maintenance Results * (ABNORMAL) POCT glucose (09/01/2024 12:55 PM CDT) Only the most recent of31 resultswithin the time period is included. [facility] GLUCOSE POC 108(H) 70 - 99 mg/dL 09/01/2024 1:02 PM CDT [facility] 09/01/2024 12:5 5 PM CDT us Christiana Woodson APNP POCT ORDERABLES - DEVICE Final Result [facility] [address] [place] [address], [place] [phone] * (ABNORMAL) BASIC METABOLIC PANEL (09/01/2024 6:32 AM CDT) Only the most recent of7 resultswithin the time period is included. [facility] GLUCOSE 107(H) 70 - 99 MG/DL 09/01/2024 7:56 AM [facility] BUN 80(H) 7 - 18 MG/DL 09/01/2024 7:56 AM [facility] CREATININE S/P/B 6.60(HH) 0.7 - 1.3 MG/DL 09/01/2024 7:56 AM [facility] Comment:NOT CALLED PER CRITI JARAD VALUE POLICY SODIUM S/P/B 135(L) 136 - 145 MMOL/L 09/01/2024 7:56 AM T [facility] POTASSIUM S/P/B 4.0 3.5 - 5.1 MMOL/L 09/01/2024 7:56 AM [facility] CHLORIDE S/P/B 99 97 - 115 MMOL/L 09/01/2024 7:56 AM [facility] CO2 23.6 21 - 32 MMOL/L 09/01/2024 7:56 AM [facility] CALCIUM S/P/B 9.0 8.5 - 10.1 MG/DL 09/01/2024 7:56 AM [facility] ANION GAP 12.4(H) 2 - 10 MMOL/L 09/01/2024 7:56 AM [facility] BUN CREATININE RATIO 12.1 6 - 26 09/01/2024 7:56 AM [facility] GFR ESTIMATE 8(L) >90 ML/MIN/1.7 3 M2 09/01/2024 7:56 AM [facility] Comment: NOTE: eGFR is not calculated for patients <18 years of age or gender unknown. This is an estimated GFR calculation using the new CKD EPI creatinine equation without race and so does not require a correction factor for race. This estimated GFR should not be used for calculating drug doses. 09/01/2024 6:32 AM CDT Christiana Woodson [facility] Final Res ult [facility] [address] [place] [address], [place] [phone] * (ABNORMAL) CBC W/DIFF AUTOMATED (09/01/2024 6:32 AM CDT) Only the most recent of11 resultswithin the time period is included. WBC 8.99 4.5 - 11.0 x10'3/uL 09/01/2024 7:27 AM CDT [facility] RBC 2.57(L) 4.70 - 6.10 x10'6/uL 09/01/2024 7:27 AM CDT [facility] HGB 7.6(L) 14.0 - 18.0 G/DL 09/01/2024 7:27 AM CDT [facility] HCT 24.6(L) 43.0 - 54.0 % 09/01/2024 7:27 AM CDT [facility] MCV 95.7(H) 80.0 - 94.0 FL 09/01/2024 7:27 AM CDT [facility] MCH 29.6 27.0 - 31.0 PG 09/01/2024 7:27 AM CDT [facility] MCHC 30.9(L) 32.0 - 36.0 G/DL 09/01/2024 7:27 AM CDT [facility] RDW 18.3(H) 11.5 - 14.5 % 09/01/2024 7:27 AM CDT [facility] PLT 318 130 - 400 x10'3/uL 09/01/2024 7:27 AM CDT [facility] MPV 9.6 9.3 - 12.2 FL 09/01/2024 7:27 AM CDT [facility] DIFFERENTIAL TYPE AUTOMATED DIFFERENTIAL 09/01/2024 7:27 AM CDT [facility] NEUTROPHILS % 77.4 % 09/01/2024 7:27 AM CDT [facility] LYMPHOCYTES % 9.1 % 09/01/2024 7:27 AM CDT [facility] MONOCYTES % 10.3 % 09/01/2024 7:27 AM CDT [facility] EOSINOPHILS 2.0 % 09/01/2024 7:27 AM CDT [facility] BASOPHILS 0.4 % 09/01/2024 7:27 AM CDT [facility] IMMATURE GRANS % 0.8 % 09/02/19 7:27 AM CDT [facility] ABS. NEUTROPHILS 6.95 1.80 - 7.70 x10'3/uL 09/01/2024 7:27 AM CDT [facility] ABS. LYMPHOCYTES 0.82(L) 1.00 - 4.80 x10'3/uL 09/01/2024 7:27 AM CDT [facility] ABS. MONOCYTES 0.93(H) 0.30 - 0.82 x10'3/uL 09/01/2024 7:27 AM CDT [facility] ABS. EOSINOPHILS 0.18 0.04 - 0.54 x10'3/uL 09/01/2024 7:27 AM CDT [facility] ABS. BASOPHILS 0.04 0.01 - 0.08 x10'3/uL 09/01/2024 7:27 AM CDT [facility] ABS. IMMATURE GRANULOCYTES 0.07 0.00 - 0.49 x10'3/uL 09/01/2024 7:27 AM CDT [facility] 09/01/2024 6:3 2 AM CDT us Christiana Woodson [facility] Final Res ult Performing Organization Address City/[facility]/ZIP Co de Phone Number [facility] [address] [place] [address], * PHOSPHORUS, INORGANIC PHOSPHATE (08/31/2024 5:57 AM CDT) Only the most recent of2 resultswithin the time period is included. PHOSPHORUS 4.8 2.5 - 4.9 MG/DL 08/31/2024 11:18 AM CDT [facility] 08/31/2024 5:57 AM CDT Christiana Woodson [facility] Final Res ult Performing Organization Address [facility] Co de Phone Number [facility] [address] [place] [address], * MAGNESIUM (08/31/2024 5:57 AM CDT) Only the most recent of4 resultswithin the time period is included. MAGNESIUM 2.2 1.8 - 2.4 MG/DL 08/31/2024 11:18 AM CDT [facility] 08/31/2024 5:57 AM CDT us Christiana Woodson [facility] Final Res ult Performing Organization Address City/[facility]/ZIP Co de Phone Number [facility] [address] [place] [address], * MRI ENTEROGRAPHY (08/29/2024 12:01 PM CDT) Anatomical Region Laterality Modality Abdomen, Pelvis Magnetic Resonan ce 08/29/2024 1:18 PM CDT Impressions 08/29/2024 1:34 PM CDT IMPRESSION: 1. Indeterminant liver lesion. 2. Distended gallbladder. 3. Volume averaging artifact versus a small filling defect in the common hepatic duct. 4. Numerous kidney findings most likely representing cysts. Many are too small to characterize. No specific follow-up for the larger findings. 5. Large rectal stool volume. 6. Possible right-sided colitis. Referred By: Interpreted By: Crispin Wagner MD, 08/29/2024 1:18 PM Narrative 08/29/2024 1:[address]T [address] [address] EXAM: MRI ENTEROGRAPHY DATE: 08/29/2024 COMPARISON: None. INDICATION: Anemia, dark stools. TECHNIQUE: Precontrast and postcontrast imaging with 15 cc intravenous Dotarem right antecubital fossa. FINDINGS: In the dome of the liver near the IVC, there is a 2 cm ovoid T2 hyperintense lesion present. Minimal heterogeneity on the postcontrast images. Indeterminant finding. Identification would require either comparison with prior CT or MRI studies or a cavernous hemangioma protocol. In this location, ultrasound would probably not visualized this finding. Abnormal distention of the gallbladder with a diameter of about 4.3 cm. This is probably due to fasting. No wall thickening or gallstones demonstrated. On the coronal images, there is a 7 mm low signal intensity structure is probably in the common hepatic duct. In this location, potential artifact or stone. The CBD is normal diameter with no intraluminal filling defect. Normal appearance of the adrenal glands, spleen, and nearly empty stomach. No urinary tract obstruction. There are numerous bilateral T2 hyperintense lesions in the kidneys. These are of variable size. The largest is on the left at about 2 cm. Many are in the less than 3 mm size. Larger findings show no enhancement. Probable cysts. There is either water or a small amount of oral contrast material in portions of the small bowel. The visualized rowe and mucosal folds are normal thickness. Normal enhancement of the small bowel. There is a large rectal stool volume. Diameter of the rectum is 7-8 cm. The remainder of the large bowel is either decompressed or contains a small amount of stool. On the postcontrast images, there is diffuse asymmetric large bowel wall enhancement from the cecum through at least the hepatic flexure. With the amount of motion, cannot assess potential wall thickening. Possible nonspecific colitis. Procedure Note Crispin Wagner MD - 08/29/[address] [id number] EXAM: MRI ENTEROGRAPHY DATE: 08/29/2024 COMPARISON: None. INDICATION: Anemia, dark stools. TECHNIQUE: Precontrast and postcontrast imaging with 15 cc intravenousDotarem right antecubital fossa. FINDINGS: In the dome of the liver near the IVC, there is a 2 cm ovoid [id number] lesion present. Minimal heterogeneity on the postcontrastimages. Indeterminant finding. Identification would require eithercomparison with prior CT or MRI studies or a cavernous hemangiomaprotocol. In this location, ultrasound would probably not visualized thisfinding. Abnormal distention of the gallbladder with a diameter of about 4.3 cm.This is probably due to fasting. No wall thickening or gallstonesdemonstrated. On the coronal images, there is a 7 mm low signal intensitystructure is probably in the common hepatic duct. In this location,potential artifact or stone. The CBD is normal diameter with nointraluminal filling defect. Normal appearance of the adrenal glands, spleen, and nearly emptystomach. No urinary tract obstruction. There are numerous bilateral U2hglkoscaxrgr lesions in the kidneys. These are of variable size. Thelargest is on the left at about 2 cm. Many are in the less than 3 mmsize. Larger findings show no enhancement. Probable cysts. There is either water or a small amount of oral contrast material inportions of the small bowel. The visualized rowe and mucosal folds arenormal thickness. Normal enhancement of the small bowel. There is a large rectal stool volume. Diameter of the rectum is 7-8 cm.The remainder of the large bowel is either decompressed or contains asmall amount of stool. On the postcontrast images, there is diffuse asymmetric large bowel wallenhancement from the cecum through at least the hepatic flexure. With theamount of motion, cannot assess potential wall thickening. Possiblenonspecific colitis. IMPRESSION: 1. Indeterminant liver lesion. 2. Distended gallbladder. 3. Volume averaging artifact versus a small filling defect in the commonhepatic duct. 4. Numerous kidney findings most likely representing cysts. Many are toosmall to characterize. No specific follow-up for the larger findings. 5. Large rectal stool volume. 6. Possible right-sided colitis. Referred By: Interpreted By: Crispin Wagner MD, 08/29/2024 1:18 PM Eusebia Islas NP MRI Final Resul t * (ABNORMAL) OCCULT BLOOD, FECES (08/28/2024 11:48 AM CDT) [facility] OCCULT BLOOD FECAL POSITIVE(A ) NEGATIVE 08/28/2024 12:57 PM CDT [facility] STOOL SPECIMEN / Unknown 08/28/2024 11:48 AM CDT Tirso Cooper MD BODY FLUIDS AND STOOLS ORDERAB LES Final Result [facility] [address] [place] [address], [place] [phone] * (ABNORMAL) COMPREHENSIVE METABOLIC PANEL (08/27/2024 5:23 AM CDT) Only the most recent of5 resultswithin the time period is included. Pathologist [facility] GLUCOSE 117(H) 70 - 99 MG/DL 08/27/2024 6:33 AM CDT [facility] BUN 85(H) 7 - 18 MG/DL 08/27/2024 6:33 AM CDT [facility] CREATININE S/P/B 5.29(HH) 0.7 - 1.3 MG/DL 08/27/2024 6:33 AM T [facility] Comment:NOT CALLED PER CRITI JARAD VALUE POLICY SODIUM S/P/B 138 136 - 145 MMOL/L 08/27/2024 6:33 AM T [facility] POTASSIUM S/P/B 3.7 3.5 - 5.1 MMOL/L 08/27/2024 6:33 AM T [facility] CHLORIDE S/P/B 103 97 - 115 MMOL/L 08/27/2024 6:33 AM T [facility] CO2 27.2 21 - 32 MMOL/L 08/27/2024 6:33 AM T [facility] CALCIUM S/P/B 8.9 8.5 - 10.1 MG/DL 08/27/2024 6:33 AM T [facility] BILIRUBIN TOTAL S/P/B 0.5 0.2 - 1.2 MG/DL 08/27/2024 6:33 AM T [facility] Comment: THIS ASSAY IS NOT RECOMMENDED FOR PATIENTS UNDERGOING TREATMENT WITH ELTROMBOPAG DUE TO THE POTENTIAL FOR FALSELY ELEVATED RESULTS. TOTAL PROTEIN S/P/B 5.5(L) 6.4 - 8.2 G/DL 08/27/2024 6:33 AM T [facility] ALBUMIN S/P/B 2.6(L) 3.4 - 5.0 G/DL 08/27/2024 6:33 AM T [facility] AST 8(L) 15 - 37 U/L 08/27/2024 6:33 AM T [facility] ALT 19 16 - 60 U/L 08/27/2024 6:33 AM T [facility] ALKALINE PHOSPHATASE S/P/B 74 50 - 136 U/L 08/27/2024 6:33 AM CDT [facility] ANION GAP 7.8 2 - 10 MMOL/L 08/27/2024 6:33 AM CDT [facility] BUN CREATININE RATIO 16.1 6 - 26 08/27/2024 6:33 AM CDT [facility] A/G RATIO 0.9(L) 1.0 - 2.0 RATIO 08/27/2024 6:33 AM CDT [facility] GFR ESTIMATE 11(L) >90 ML/MIN/1.7 3 M2 08/27/2024 6:33 AM CDT [facility] Comment: NOTE: eGFR is not calculated for patients <18 years of age or gender unknown. This is an estimated GFR calculation using the new CKD EPI creatinine equation without race and so does not require a correction factor for race. This estimated GFR should not be used for calculating drug doses. 08/27/2024 5:23 AM CDT Joann Sherman NP LABORATORY Final Result [facility] [address] [place] [address], * TRANSFUSE RED BLOOD CELLS (08/26/2024 11:33 AM CDT) Dagmar Barakat MD NURSING TREATMENT ORDERABLES - BLOOD ADMIN Final Result * (ABNORMAL) HEPARIN, ANTI XA, UFH (08/26/2024 6:05 AM CDT) Only the most recent of3 resultswithin the time period is included. HEPARIN ANTI XA UFH <0.04(L) 0.30 - 0.70 IU/ML 08/26/2024 7:05 AM CDT [facility] Comment: UFH Therapeutic Anti Xa Ranges: Medical Therapeutic Range: 0.30 - 0.70 IU/mL Cardiac Therapeutic Range: 0.30 - 0.50 IU/mL Neuro Therapeutic Range: 0.20 - 0.40 IU/mL 08/26/2024 6:05 AM CDT Ori Hodges PA-C LABORATORY Final Result Performing Organization Address City/[facility]/ZIP Co de Phone Number [facility] [address] [place] [phone], * (ABNORMAL) IRON SAT PANEL (IRON,IBC,%SAT) (08/26/2024 6:05 AM CDT) Only the most recent of2 resultswithin the time period is included. IRON 14(L) 65.0 - 175.0 MCG/DL 08/26/2024 6:51 AM CDT [facility] IRON BINDING CAPACITY 218(L) 250 - 450 MCG/DL 08/26/2024 6:51 AM CDT [facility] IRON SATURATION 6(L) 20 - 55 % 6:51 AM CDT [facility] 08/26/2024 6:05 AM CDT Tirso Cooper MD LABORATORY Final Result Performing Organization Address City/[facility]/ZIP Co de Phone Number [facility] [address] [place] [address], * VITAMIN B-12 (08/26/2024 6:05 AM CDT) Only the most recent of2 resultswithin the time period is included. VITAMIN B12 S/P/B 934 254 - 1,320 PG/ML 08/26/2024 7:16 AM CDT [facility] 08/26/2024 6:05 AM CDT Tirso Cooper MD LABORATORY Final Result Performing Organization Address City/[facility] Co de Phone Number [facility] [address] [place] [address], [place] [phone] * (ABNORMAL) FOLIC ACID SERUM (08/26/2024 6:05 AM CDT) Only the most recent of2 resultswithin the time period is included. FOLATE 36.9(H) 3.1 - 17.5 NG/ML 08/26/2024 7:16 AM CDT [facility] 08/26/2024 6:05 AM CDT Tirso Cooper MD LABORATORY Final Result Performing Organization Address City/[facility] Co de Phone Number [facility] [address] [place] [address], [place] [phone] * FERRITIN (08/26/2024 6:05 AM CDT) Only the most recent of2 resultswithin the time period is included. FERRITIN 79.3 8.0 - 388.0 NG/ML 08/26/2024 7:16 AM CDT [facility] 08/26/2024 6:05 AM CDT Tirso Cooper MD LABORATORY Final Result Performing Organization Address City/[facility]/ZIP Co de Phone Number [facility] [address] [place] [address], [place] [phone] * (ABNORMAL) HEMOGLOBIN AND HEMATOCRIT (08/26/2024 1:11 AM CDT) Only the most recent of3 resultswithin the time period is included. [facility] HGB 6.7(LL) 14.0 - 18.0 G/DL 08/26/2024 1:43 AM CDT [facility] Comment: This result has been called to TREY BANUELOS by [id number] on 08/26/2024 01:42:49, and has been read back. HCT 20.9(L) 43.0 - 54.0 % 08/26/2024 1:43 AM CDT [facility] 08/26/2024 1:11 AM CDT Dagmar Barakat MD LABORATORY Final Result [facility] [address] [place] [id number], [place] [phone] * TYPE & SCREEN (08/26/2024 1:11 AM CDT) [facility] UNITS ORDERED 1 08/26/2024 2:09 AM CDT [facility] ABO/RH O POSITIVE 08/26/2024 2:09 AM CDT [facility] ANTIBODY SCREEN NEGATIVE 2:09 AM CDT [facility] SAMPLE EXPIRATION 08/29/2024,2359 08/26/2024 2:09 AM CDT [facility] BLOOD UNIT NUMBER [id number] 08/26/2024 2:10 AM CDT [facility] PRODUCT: PC LEUKOPOOR 08/26/2024 2:10 AM CDT [facility] UNIT DIVISION 00 08/26/2024 2:10 AM CDT [facility] BLOOD UNIT STATUS TRANSFUSED,FINAL 08/27/2024 8:06 AM CDT [facility] ISSUE DATE/TIME [id number] 8:06 AM CDT [facility] PRODUCT CODE [id number] 08/27/2024 8:06 AM CDT [facility] ABO/RH Unit O POS 08/27/2024 8:06 AM CDT [facility] ABO/RH UNIT ISBT CODE 5100 08/27/2024 8:06 AM CDT [facility] BLOOD UNIT EXPIRATION DATE [id number] 08/27/2024 8:06 AM CDT [facility] TRANSFUSION STATUS OK TO TRANSFUSE 08/26/2024 2:10 AM CDT [facility] CROSSMATCH COMPATIBLE-EXM 08/26/2024 2:10 AM CDT [facility] 08/26/2024 1:11 AM CDT Ori Hodges PA-C BLOOD BANK TEST ORDERABLES Fin al Result [facility] [address] [place] [address], [place] [phone] * USE ECHO 2D FU LTD W CON (08/25/2024 4:54 PM CDT) Anatomical Region Laterality Modality NA Echocardiogram 08/25/2024 4:26 PM CDT Narrative 08/26/2024 1:54 PM CDT Echocardiography Report Pat.Name: JAYLEEN CHAVEZ Pat.ID: [id number] .Date: 08/25/2024 Exam Time: 4:26:00 PM Study Type:ECHO WITH CARDIAC DOPPLER COMP Height: 69 in Weight: 161 lb BSA: 1.88 m2 Age: 8 1950,74Y Sex: M BP: 116/43 HR: 72 bpm Sonogrphr: Keisha Max Pat. Stat.:Inpatient Room: [facility] Reason for Study:Atrial fibrillation / flutter Procedures: 2D, Doppler, Color Flow, Definity was used to enhance endocardial definition. The study quality is technically difficult. Limited Race: O ++++++++++++++++++++++++++++++++++++ SUMMARY: ++++++++++++++++++++++++++++++++++++ The left ventricular size is mildly enlarged. The left ventricular systolic function is normal. Estimated left ventricular ejection fraction is 50-55%. The right ventricular size is normal. Right ventricular systolic function is normal. Moderate mitral regurgitation. Moderate tricuspid regurgitation. ++++++++++++++++++++++++++++++++++++ FINDINGS: ++++++++++++++++++++++++++++++++++++ LV: The left ventricular size is mildly enlarged. The left ventricular systolic function is normal. Estimated left ventricular ejection fraction is 50-55%. There is no left ventricular hypertrophy. RV: The right ventricular size is normal. Right ventricular systolic function is normal. AV: No evidence of aortic valve stenosis. No evidence of aortic regurgitation. MV: Moderate mitral regurgitation. No evidence of mitral valve stenosis. TV: Moderate tricuspid regurgitation. No evidence of tricuspid valve stenosis. ++++++++++++++++++++++++++++++++++++ MEASUREMENTS: ++++++++++++++++++++++++++++++++++++ 2D Left Ventricle LVIDd 6.2 cm (3.6-5.2)* LV ESV 107 ml LVIDs 4.7 cm (2.3-3.9)* LV ESV 112 ml LngAxd 9.14 cm LVESV BP 114 ml LngAxd 9.96 cm LV EF 50 % LV EDV 215 ml LV EF 48.9 % LV EDV 220 ml LV EF BP 49.6 % LVEDV BP 226 ml LV SV 107 ml LngAxs 7.81 cm LV SV 107 ml LngAxs 8.57 cm LV SV BP 112 ml LVPW LVPWd 1 cm Ventricular Septum IVSd 1.1 cm LVOT LVOT 2 cm LVOTArea 3.14 cm2 Ratios IVS DOPPLER LVOT LVOTpkPG 3 mmHg LVOTmnPG 2 mmHg LVOTpkVel [...] Signature> 08/26/2024 01:54 PM Ernst Good M.D. Procedure Note Ernst Good MD - 08/26/2024 Echocardiography Report Pat.Name: JAYLEEN CHAVEZ Pat.ID: [id number] .Date: 08/25/2024 Exam Time: 4:26:00 PM Study Type:ECHO WITH CARDIAC DOPPLER COMP Height: 69 in Weight: 161 lb BSA: 1.88 m2 Age: 8 1950,74Y Sex: M BP: 116/43 HR: 72 bpm Sonogrphr: Keisha Max Pat. Stat.:Inpatient Room: [facility] Reason for Study:Atrial fibrillation / flutter Procedures: 2D, Doppler, Color Flow, Definity was used to enhance endocardial definition. The study quality is technically difficult. Limited Race: O ++++++++++++++++++++++++++++++++++++ SUMMARY: ++++++++++++++++++++++++++++++++++++ The left ventricular size is mildly enlarged. The left ventricular systolic function is normal. Estimated left ventricular ejection fraction is 50-55%. The right ventricular size is normal. Right ventricular systolic function is normal. Moderate mitral regurgitation. Moderate tricuspid regurgitation. ++++++++++++++++++++++++++++++++++++ FINDINGS: ++++++++++++++++++++++++++++++++++++ LV: The left ventricular size is mildly enlarged. The left ventricular systolic function is normal. Estimated left ventricular ejection fraction is 50-55%. There is no left ventricular hypertrophy. RV: The right ventricular size is normal. Right ventricular systolic function is normal. AV: No evidence of aortic valve stenosis. No evidence of aortic regurgitation. MV: Moderate mitral regurgitation. No evidence of mitral valve stenosis. TV: Moderate tricuspid regurgitation. No evidence of tricuspid valve stenosis. ++++++++++++++++++++++++++++++++++++ MEASUREMENTS: ++++++++++++++++++++++++++++++++++++ 2D Left Ventricle LVIDd 6.2 cm (3.6-5.2)* LV ESV 107 ml LVIDs 4.7 cm (2.3-3.9)* LV ESV 112 ml LngAxd 9.14 cm LVESV BP 114 ml LngAxd 9.96 cm LV EF 50 % LV EDV 215 ml LV EF 48.9 % LV EDV 220 ml LV EF BP 49.6 % LVEDV BP 226 ml LV SV 107 ml LngAxs 7.81 cm LV SV 107 ml LngAxs 8.57 cm LV SV BP 112 ml LVPW LVPWd 1 cm Ventricular Septum IVSd 1.1 cm LVOT LVOT 2 cm LVOTArea 3.14 cm2 Ratios IVS DOPPLER LVOT LVOTpkPG 3 mmHg LVOTmnPG 2 mmHg LVOTpkVel [...] HEMOGLOBIN, GLYCOSYLATED (08/25/2024 6:44 AM CDT) Pathologist [facility] HGB A1C 5.9(H) <5.7 % 08/25/2024 9:03 AM CDT [facility] Comment: ADA GUIDELINES 2010 5.7 TO 6.4% INCREASED RISK OF DIABETES > OR = 6.5% CONSISTENT WITH DIABETES ESTIMATED AVG GLUCOSE 123 mg/dL 08/25/2024 9:03 AM CDT [facility] 08/25/2024 6:44 AM CDT Joann Sherman NP LABORATORY Final Result [facility] [address] [place] [address], [place] [phone] * (ABNORMAL) PRO-BRAIN NATRIURETIC PEPTIDE (08/24/2024 8:14 PM CDT) Pathologist [facility] PRO-B TYPE NATRIURETIC PEPTIDE 4,591(H) <450 PG/ML 08/24/2024 9:14 PM CDT [facility] Comment: CUT POINTS ESTABLISHED BY INTERNATIONAL [...] CDT Joann Sherman NP LABORATORY Final Result [facility] [address] [place] [address], [place] [phone] * CT HEAD WO CON (08/24/2024 4:59 PM CDT) Anatomical Region Laterality Modality Head Computed Tomogra phy 08/24/2024 5:31 PM CDT Impressions 08/24/2024 5:33 PM CDT IMPRESSION: 1. No definite CT evidence of acute intracranial abnormality, as above. 2. Small vessel disease and volume loss. Ordered By: ISMAEL BRENNAN Interpreted By: Owen Hermosillo MD, 08/24/2024 5:31 PM Narrative 08/24/2024 5:[address] [facility] [address] [place], [place] [address] DATE: 08/24/2024 4:53 PM EXAMINATION: CT of [...] Procedure Note Owen Hermosillo MD - 08/24/[address] [address] DATE: 08/24/2024 4:53 PM EXAMINATION: CT of [...] loss. Ordered By: ISMAEL BRENNAN Interpreted By: wOen Hermosillo MD, 08/24/2024 5:31 PM us Ismael Brennan MD CT Final Result * EKG Reading (08/24/2024 4:25 PM CDT) Only the most recent of2 resultswithin the time period is included. Narrative Ismael Brennna MD - 08/24/2024 4:25 PM CDT Ismael [...] 116. No ectopy us Ismael Brennan MD MD CARDIOVASCULAR SYSTEM SERVI [facility] Final Result * ECG 12 lead (08/24/2024 4:12 PM CDT) Only the most recent of2 resultswithin the time period is included. 08/24/2024 4:12 PM CDT Narrative 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: KLAvi : 1950 Requested By: ROSARIO MOCK Order Number: [id number] Reading MD: Irina Moody Measurements Intervals [place] Rate: 116 P: 0 MD: 0 QRS: 65 QRSD: 154 T: 39 QT: 359 QTc: 500 Interpretive Statements ATRIAL FIBRILLATION WITH RAPID VENTRICULAR RESPONSE RIGHT BUNDLE BRANCH BLOCK [120+ ms QRS DURATION, UPRIGHT V1, 40+ ms S IN I/aVL/V4/V5/V6] Compared to ECG 08/24/2024 14:11:33 No significant changes Procedure Note Irina Moody MD - 08/25/[address] Test Date: 2024-08-24 Pat Name: JAYLEEN CAVAZOS Department: 41 Room: B4 Gender: Male Computer Forensics Examiner: TRAVON : 1950 Requested By: ROSARIO MOCK Order Number: [id number] Reading MD: Irina Moody Measurements Intervals [place] Rate: 116 P: 0 MD: 0 QRS: 65 QRSD: 154 T: 39 QT: 359 QTc: 500 Interpretive Statements ATRIAL FIBRILLATION WITH RAPID VENTRICULAR RESPONSE RIGHT BUNDLE BRANCH BLOCK [120+ ms QRS DURATION, UPRIGHT V1, 40+ ms SIN I/aVL/V4/V5/V6] Compared to ECG 08/24/2024 14:11:33 No significant changes us Rosario SPARKS ECG ORDERABLES Final Result [facility] * TROPONIN, QUANT (08/24/2024 4:08 PM CDT) Only the most recent of2 resultswithin the time period is included. TROPONIN I HIGH SENSITIVITY 32 <79 ng/L 08/24/2024 4:48 PM CDT [facility] Comment: HIGH DOSES OF BIOTIN, TROPONIN-SPECIFIC AUTOANTIBODIES, AND ANTIBODY THERAPY CONTAINING HAMA MAY INTERFERE WITH THIS TEST RESULT. CORRELATION TO CLINICAL HISTORY AND PRESENTATION RECOMMENDED. 08/24/2024 4:08 PM CDT us Rosario SPARKS LABORATORY Final Result [facility] [address] [place] [address], [place] [phone] * LACTIC ACID W REFLEX (SEPSIS) (08/24/2024 3:36 PM CDT) LACTIC ACID VENOUS 0.8 0.4 - 2.0 MMOL/L 08/24/2024 4:15 PM CDT [facility] 08/24/2024 3:36 PM CDT Ismael Brennan MD LABORATORY Final Result [facility] [address] [place] [address], * PARTIAL THROMBOPLASTIN TIME,PTT (08/24/2024 3:36 PM CDT) PTT 30.4 25.1 - 36.5 SEC 08/24/2024 4:22 PM CDT [facility] 08/24/2024 3:36 PM CDT Ismael Brennan MD LABORATORY Final Result [facility] [address] [place] [address], [place] [phone] * (ABNORMAL) PROTIME/INR, VENOUS (08/24/2024 3:36 PM CDT) PROTIME 13.3(H) 10.2 - 12.9 SEC 08/24/2024 4:22 PM CDT [facility] INR 1.2 08/24/2024 4:22 PM CDT [facility] Comment: Recommended INR Therapeutic Goals: 2.0-3.0 Routine Therapy 2.5-3.5 Mechanical Prosthetic Valves (High Risk) 08/24/2024 3:36 PM CDT us Ismael Brennan MD LABORATORY Final Result [facility] [address] [place] [address], [place] [phone] * LIPASE (08/24/2024 3:36 PM CDT) LIPASE 32 13 - 75 UNITS/L 08/24/2024 4:11 PM CDT [facility] 08/24/2024 3:36 PM CDT Ismael Brennan MD LABORATORY Final Result Performing Organization Address [facility] Co de Phone Number [facility] [address] [place] [address], [place] [phone] * XR CHEST PORTABLE (08/24/2024 2:40 PM CDT) Anatomical Region Laterality Modality Chest Radiographic Marie ging 08/24/2024 2:42 PM CDT Impressions 08/24/2024 2:44 PM CDT =====IMPRESSION:===== Mild cardiomegaly, central pulmonary vascular congestion, and interstitial edema. Ordered By: ROSARIO MOCK Interpreted By: Davin Corral MD, 08/24/2024 2:42 PM Narrative 08/24/2024 2:[address] [facility] [address] [place], [place] [address] Examination: Chest x-ray 1 view Exam date/time: [...] Procedure Note Davin Corral MD - 08/24/2024 [facility] [address] [place], [place] [address] Examination: Chest x-ray 1 view Exam date/time: [...] 5:56 PM Narrative 08/20/2024 5:[address] [facility] [address] [place], [place] [address] 2 VIEWS OF THE CHEST Clinical history: End-stage renal disease Comparison: May 28, 2024 2 views of the chest demonstrate the cardiac silhouette to be normal in size and appears stable. The pulmonary vessels appear normal. The Lungs are clear. No consolidations or effusions are seen. Procedure Note Minor Jo MD - 08/20/2024 [facility] [address] [place], [place] [address] 2 VIEWS OF THE CHEST Clinical history: End-stage renal disease Comparison: May 28, 2024 2 views of the chest demonstrate the cardiac silhouette to be normal insize and appears stable. The pulmonary vessels appear normal. The Lungsare clear. No consolidations or effusions are seen. IMPRESSION: No acute findings Ordered By: TIRSO COOPER Interpreted By: Minor Jo MD, 08/20/2024 5:56 PM Tirso Cooper MD GENERAL IMAGING Final Result * (ABNORMAL) PTH - INTACT (08/20/2024 3:42 PM CDT) Only the most recent of2 resultswithin the time period is included. PTH INTACT 284.1(H) 18.4 - 80.1 PG/ML 08/20/2024 4:19 PM CDT [facility] 08/20/2024 3:42 PM CDT Tirso Cooper MD LABORATORY Final Result [facility] [address] [place] [address], [place] [phone] * HEPATITIS B SURFACE AG, EIA (08/20/2024 3:42 PM CDT) HEPATITIS B SURFACE AG NON-REACTI VE NON-REACTI VE 08/20/2024 4:30 PM CDT [facility] 08/20/2024 3:42 PM CDT us Tirso Cooper MD LABORATORY Final Result [facility] [address] [place] [address], [place] [phone] * HEPATITIS B SURFACE ANTIBODY (08/20/2024 3:42 PM CDT) HEP B SURFACE AB NON-REACTI VE 08/20/2024 5:24 PM CDT [facility] 08/20/2024 3:42 PM CDT us Tirso Cooper MD LABORATORY Final Result Performing Organization Address City/[facility]/ZIP Co de Phone Number [facility] [address] [place] [address], [place] [phone] * HEPATITIS B CORE ANTIBODY (08/20/2024 3:42 PM CDT) HEP B CORE TOTAL AB NON-REACTI VE NON-REACTI VE 08/20/2024 4:59 PM CDT [facility] 08/20/2024 3:42 PM CDT us Tirso Cooper MD LABORATORY Final Result Performing Organization Address City/[facility]/ZIP Co de Phone Number [facility] [address] [place] [address], [place] [phone] * (ABNORMAL) CBC, AUTO, NO DIFF (08/20/2024 3:42 PM CDT) Only the most recent of3 resultswithin the time period is included. WBC 7.79 4.5 - 11.0 x10'3/uL 08/20/2024 3:52 PM CDT [facility] RBC 2.59(L) 4.70 - 6.10 x10'6/uL 08/20/2024 3:52 PM CDT [facility] HGB 7.7(L) 14.0 - 18.0 G/DL 08/20/2024 3:52 PM CDT [facility] HCT 23.8(L) 43.0 - 54.0 % 08/20/2024 3:52 PM CDT [facility] MCV 91.9 80.0 - 94.0 FL 08/20/2024 3:52 PM CDT [facility] MCH 29.7 27.0 - 31.0 PG 08/20/2024 3:52 PM CDT [facility] MCHC 32.4 32.0 - 36.0 G/DL 08/20/2024 3:52 PM CDT [facility] RDW 16.1(H) 11.5 - 14.5 % 08/20/2024 3:52 PM CDT [facility] PLT 262 130 - 400 x10'3/uL 08/20/2024 3:52 PM CDT [facility] MPV 9.5 9.3 - 12.2 FL 08/20/2024 3:52 PM CDT [facility] 08/20/2024 3:42 PM CDT Tirso Cooper MD LABORATORY Final Result [facility] [address] [place] [address], * VITAMIN D, 25 OH (07/26/2024 12:13 PM TOOTH CUTTER CONTACT WHEEL) VITAMIN D 25 HYDROXY S/P/B 36 30 - 100 NG/ML 07/26/2024 2:07 PM TOOTH CUTTER CONTACT WHEEL [facility] Comment: INTERPRETATION DEFICIENT <20 INSUFFICIENT 20-29 SUFFICIENT 30-100 07/26/2024 12:1 3 PM TOOTH CUTTER CONTACT WHEEL Tirso Cooper MD LABORATORY Final Result Performing Organization Address [facility] Co de Phone Number [facility] [address] [place] [address], * URIC ACID BLOOD (07/26/2024 12:13 PM TOOTH CUTTER CONTACT WHEEL) URIC ACID 4.6 3.5 - 7.2 MG/DL 07/26/2024 2:16 PM TOOTH CUTTER CONTACT WHEEL [facility] 07/26/2024 12:1 3 PM TOOTH CUTTER CONTACT WHEEL us Tirso Cooper MD LABORATORY Final Result Performing Organization Address City/[facility]/ZIP Co de Phone Number [facility] [address] [place] [address], [place] [phone] * (ABNORMAL) LIPID PANEL (10/12/2022 7:06 AM CDT) CHOLESTEROL 110 <200 MG/DL 10/12/2022 8:01 AM CDT [facility] TRIGLYCERIDES 134 <150 MG/DL 10/12/2022 8:01 AM CDT [facility] HDL 35(L) >40.0 MG/DL 10/12/2022 8:01 AM CDT [facility] LDL (CALCULATED) 48 <100 MG/DL 10/13/19 8:01 AM CDT [facility] NON HDL CHOLESTEROL 75 <130 MG/DL 10/12 8:01 AM T [facility] CHOL/HDL RATIO 3.1 0.0 - 4.5 10/12/2022 8:01 AM CDT [facility] VLDL CALCULATION 27 5 - 55 MG/DL 10/12/2022 8:01 AM T [facility] LIPID INTERPRETATION 10/12/2022 8:01 AM T [facility] Comment: NIH CONCENSUS REPORT RECOMMENDATIONS: ADULT CHILD LOW RISK: CHOLESTEROL <200 <170 TRIGLYCERIDE <150 --- HDL >=60 --- LDL <100 <110 BORDERLINE: CHOLESTEROL 200-239 170-199 TRIGLYCERIDE 150-199 --- HDL 40-59 --- LDL 100-159 110-129 HIGH RISK: CHOLESTEROL >=240 >=200 TRIGLYCERIDE >=200 --- HDL <40 --- LDL >=160 >=130 10/12/2022 7:06 AM CDT Josseline Tabares MD LABORATORY Final Result [facility] [address] [place] [address], [place] [phone] * HEPATITIS PANEL,ACUTE (05/30/2021 1:20 PM TOOTH CUTTER CONTACT WHEEL) HEPATITIS B SURFACE AG NON-REACTI VE NON-REACTI VE 05/30/2021 3:16 PM TOOTH CUTTER CONTACT WHEEL [facility] HEP B CORE IGM NON-REACTI VE NON-REACTI VE 05/30/2021 3:16 PM TOOTH CUTTER CONTACT WHEEL [facility] HAV IGM NON-REACTI VE NON-REACTI VE 05/30/2021 3:16 PM TOOTH CUTTER CONTACT WHEEL [facility] HEPATITIS C AB NON-REACTI VE NON-REACTI VE 05/30/2021 3:16 PM TOOTH CUTTER CONTACT WHEEL [facility] 05/30/2021 1:20 PM TOOTH CUTTER CONTACT WHEEL Tirso Cooper MD LABORATORY Final Result [facility] [address] [place] [address], from Last 3 Months or Most Recently Relevant to Health Maintenance Insurance [facility] MEDICAID AET AETNA AETNA Advance Directives * Full Code [...] 11:22 PM 06/03/2021 3:03 PM Care Teams Poultry Inseminator Relationship Specialty Start Date End Date Chandler Geronimo DO [address] [place] [phone] PCP - General FAMILY PRACTICE 05/29/21
--- OUTSIDE RECORDS SUMMARY | 2024-09-06 17:42 | XMS_ITS | Encounter Summary ---
Author Organization [facility] Address [address] [place] [address] Care Team Providers Care Intern Brand Name Role Phone ZainabCarleen Goodwinrick Primary Care Provide r Encounter Details Date Type Department Care Team (Late st Contact Info) Description 01/10/2022 Therapy Plan [facility] Infusion Services [place] [id number] David Hamilton MD 3 [facility], [address] [id number] Social History Tobacco Use Types Packs/Day Years [...] Sex Assigned at Male 07/22/2024 2:00 PM GRAPHICS SOFTWARE ENGINEER Legal Sex Male 2:48 PM GRAPHICS SOFTWARE ENGINEER Gender Identity Not on file Sexual Orientation [...] Assessment Author Status No 06/13/2021 2:44 AM GRAPHICS SOFTWARE ENGINEER Activ e * RETIRED Are you blind or do you have serious difficulty seeing, even when wearing glasses? Answer Date of Assessment Author Status No 06/13/2021 2:44 AM GRAPHICS SOFTWARE ENGINEER Activ e * Do you have serious [...] Description 10/04/2024 11:00 AM CDT Office Visit [facility] [address] [place] [address] Anika Kruger APRN Three [facility] [address] [place] [address] 10/05/2024 9:45 AM CDT Office Visit [facility] THREE [facility] [address] [place] [address] Chayo Segura PA 3 [facility] [address] [place], [place] [address] documented as of this encounter Goals Goal Patient Goal Type Associated Problems Recent Progress Patient-Stated? Author Patient will return to prior living situation and remain independent in ADLs upon discharge from [facility] General No Aline Krishna, RN documented as of this encounter Visit Diagnoses Not on filedocumented in this encounter Additional Health Concerns Assessment Noted Time PHQ-9 Depression Total Score: 0 08/29/19 22 2:52 PM CDT documented as of this encounter Care Teams Intern Brand Relationship Specialty Start Date End Date Chandler Geronimo DO [address] [place] [address] PCP - General FAMILY PRACTICE 05/29/21 documented as of this encounter
--- OUTSIDE RECORDS SUMMARY | 2024-09-06 17:42 | XMS_ITS | Encounter Summary ---
Author Organization [facility] - [facility] Address [address] [place] [address] Care Team Providers Care Carton Machine Operator Name Role Phone CarlaaleshaChandler Kothari DO Primary Care Provide r Encounter Details Date Type Department Care Team (Late st Contact Info) Description 07/28/2024 ComQi Message Enc [facility] Medical [facility] [address] [phone] [facility] Provider Orders Social History Tobacco Use Types Packs/Day Years Used Date Smoking Tobacco: Never Smokeless Tobacco: Never Alcohol Use Standard Drinks/Week Comments Never 0 (1 standard drink = 0.6 oz pur e alcohol) [facility] Utilities Answer Date Recorded In the past 12 months has [facility] Ethanol, gas, oil, or water [employer] threatened to shut off services in your [...] declined 10/10/2022 How often do you attend scientology or taoist serv ices? Patient declined 10/10/2022 Do you belong to any clubs o r organizations such as scientology groups, unions, fraternal or athletic groups, or [...] Recorded Patient Health Questionnaire-2 Score 0 07/26/2024 [facility] Occup[facility] Health - Occupational [...] place to sleep or slept in a senior care (including now)? No 10/10/2022 Housing Stability Vital Sign Answer [place] e Recorded In the last 12 months, was t here a time when you were not able to pay the mortgage or rent on time? No 05/28/2024 In the past 12 months, how m any times have you moved where you were living? 0 05/28/2024 At any time in the past 12 m [facility], were you homeless or living in a senior care (including now)? 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 Not on file [...] Assessment Author Status No 05/28/2024 12:21 AM TRAIN BRAKE OPERATOR Gralewski, Derian M, RN Active * Do [...] Description 10/04/2024 11:00 AM CDT Office Visit [facility], [address] [address] Anika Kruger APRN Three [facility] [address] [place] [phone] 10/05/2024 9:45 AM CDT Office Visit [facility], [facility] [address] [place] [address] Chayo Segura PA 3 [facility] [address] [place], [place] [address] documented as of this encounter Goals Goal Patient Goal Type Associated Problems Recent Progress Patient-Stated? Author Patient will return to prior living situation and remain independent in ADLs upon discharge from [facility] General Aline Russell RN Health - patient [...] documented as of this encounter Care Teams Carton Machine Operator Relationship Specialty Start Date End Date Chandler Geronimo DO [address] [place] [address] PCP - General FAMILY PRACTICE 05/29/21 documented as of this encounter
--- OUTSIDE RECORDS SUMMARY | 2024-09-06 17:42 | XMS_ITS | Clinical Summary ---
Author Organization [facility] Address [address] [facility] [place] [address] Care Team Providers Care Middleware Consultant Name Role Phone Unavailable Primary Care Provider Unavailabl e Source Comments [facility],non-owned Affiliates and Associated Physician Practices is amultiple site organization consisting of ambulatory clinics and hospital sitesin [place], [place], [place] and [place]. This disclosure is being madepursuant to the Care Everywhere program and may not contain all information available regarding this patient. Last updated 18.[facility] Allergies No known active allergies Medications Be [...] Comments Blood Pressure 113/89 06/17/2011 5:40 PM BANQUET DIRECTOR Pulse 67 06/17/2011 9:53 PM BANQUET DIRECTOR Temperature 36.3 C (97.3 F) 06/17/2011 5:40 PM BANQUET DIRECTOR Respiratory Rate 16 06/17/2011 5:40 PM BANQUET DIRECTOR Oxygen Saturation 95% 06/17/2011 9:53 PM BANQUET DIRECTOR Inhaled Oxygen Concentration - - Weight 91.6 kg (202 lb) 06/17/2011 5:40 PM BANQUET DIRECTOR Height 177.8 cm (5' 10 ) 06/17/2011 5:40 PM BANQUET DIRECTOR Body Mass Index 28.98 06/17/2011 5:40 PM BANQUET DIRECTOR Plan of Treatment Health Maintenance Due Date [...]
--- OUTSIDE RECORDS SUMMARY | 2024-09-06 17:42 | XMS_ITS | Encounter Summary ---
Author Organization [facility] - [facility] Address [address] [place] [address] Care Team Providers Care Machine Coremaker Name Role Phone CarlaaleshaCarleen Kotharirick Primary Care Provide r Encounter Details Date Type Department Care Team (Late st Contact Info) Description 09/01/2024 MyChart Message Enc [facility] Medical Group Multispecialty Care - [facility] 3 [facility], [facility] [address] [place] [address] David Hamilton MD 3 [facility] [address] [place] [address] question Social History Tobacco Use Types Packs/Day Years Used Date Smoking Tobacco: Never Smokeless Tobacco: Never Alcohol Use Standard Drinks/Week Comments Never 0 (1 standard drink = 0.6 oz pur e alcohol) [facility] Utilities Answer Date Recorded In the [...] How often do you attend confucianist or christian serv ices? Patient declined 10/10/2022 Do you [...] Recorded Patient Health Questionnaire-2 Score 0 07/26/2024 [facility] of Occupat ional Health - Occupational Stress [...] any time in the past 12 m [facility], were you homeless or living in a fdc (including now)? 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 [address] [place] [address] 10/05/2024 9:45 AM CDT Office Visit [facility], [facility] [address] [place] [address] Chayo Segura PA 3 [facility] [address] [place] [address] documented as of this encounter Goals Goal Patient Goal Type Associated Problems Recent Progress Patient-Stated? Author Patient will return to prior living situation and remain independent in ADLs upon discharge from hospital General Aline Russell, RN Health - patient able to perform ADLs independently Lifestyle El Robbins, music historian - family caregiver with be involved in care transitions and discharge planning Lifestyle No Abby Eng RN documented as of this encounter Visit Diagnoses Not on filedocumented in this encounter Additional Health Concerns Assessment Noted Time PHQ-9 Depression Total Score: 0 03/14/20 22 3:10 PM CDT documented as of this encounter Care Teams Machine Coremaker Relationship Specialty Start Date End Date Chandler Geronimo DO [address] [place] [address] PCP - General FAMILY PRACTICE 05/29/21 documented as of this encounter
[2024-09-06 17:53] LABS: Iron 24 ug/dL (49-181)
[2024-09-06 18:06] LABS: Percent Iron Saturation 11 % (20-50)
[2024-09-06 18:15] LABS: Troponin I < 0.012 ng/mL (0.000-0.034)
--- NOTE | 2024-09-06 18:38 | PC.NURSE ---
PAtient arrived from ER. Telemetry applied. Admission completed.
--- OUTSIDE RECORDS SUMMARY | 2024-09-06 18:45 | XMS_ITS | Encounter Summary ---
Author Organization [facility] Address [address] [place] [address] Care Team Providers Care Media Center Specialist Name Role Phone FelicianoCarleen Kotharirick Primary Care Provide r Reason for Referral * Surgical (Routine) - New Request Specialty Diagnoses / Procedures Referred By Contac t Referred To Contact Diagnoses ESRD (end stage renal disease) on dialysis ([facility]) Procedures Case request operating room: BRACHIAL CEPHALIC ARTERIOVENOUS FISTULA OR TRANSPOSITION BASILIC VEIN (LEFT ARM) Layton Herrera MD [facility]. [address] [place] [address] Phone: tel: fax: Referral ID Status Reason Start Date Expiration Date V isits Requested Visits Authorized [id number] New Request 06/01/2024 06/01/2025 1 1 HEALTH PHYSICAL THERAPIST Encounter Details Date Type Department Care Team (Late st Contact Info) Description 06/01/2024 Prep for Procedure [facility] [address] [place] [address] Layton Herrera MD [facility]. [facility] [address] [place] [address] Social History Tobacco Use Types Packs/Day Years Used Date Smoking Tobacco: Never Smokeless Tobacco: Never Alcohol Use Standard Drinks/Week Comments Never 0 (1 standard drink = 0.6 oz pur e alcohol) [facility] Utilities Answer Date Recorded In the [...] declined 10/10/2022 How often do you attend samaritan or buddhism serv ices? Patient declined 10/10/2022 Do you belong to any clubs o r organizations such as samaritan groups, unions, fraternal or athletic groups, or [...] Recorded Patient Health Questionnaire-2 Score 0 01/05/2024 [facility] [place] of Occupat ional Health - Occupational Stress [...] place to sleep or slept in a longterm (including now)? No 10/10/2022 Housing Stability Vital Sign Answer [place] e Recorded In the last 12 months, was t here a time when you were not able to pay the mortgage or rent on time? No 05/28/2024 In the past 12 months, how m any times have you moved where you were living? 0 05/28/2024 At any time in the past 12 m [facility], were you homeless or living in a longterm (including now)? 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 [address] [place] [address] Scheduled Orders Name Type Priority Associated Diagnoses Orde r Schedule Case request operating room: BRACHIAL CEPHALIC ARTERIOVENOUS FISTULA OR TRANSPOSITION BASILIC VEIN (LEFT ARM) Case Request Routine ESRD (end stage renal disease) on dialysis ([facility]) Once for 1 Occurrences starting 06/01/2024 until [...] ESRD (end stage renal disease) on dialysis ([facility])- Primary End stage renal disease documented in this encounter Additional Health Concerns Assessment Noted Time PHQ-9 Depression Total Score: 0 03/14/20 22 3:10 PM CDT documented as of this encounter Care Teams Media Center Specialist Relationship Specialty Start Date End Date Chandler Geronimo DO [address] [facility] [phone] PCP - General FAMILY PRACTICE 05/29/21 documented as of this encounter
--- OUTSIDE RECORDS SUMMARY | 2024-09-06 18:45 | XMS_ITS | Encounter Summary ---
Author Organization [facility] Address [address] [place] [address] Care Team Providers Care Cooker Soda Name Role Phone Chandler Geronimo Primary Care Provide r Encounter Details Date Type Department Care Team (Late st Contact Info) Description 07/16/2021 Therapy Plan [facility] Infusion Services [id number] David Hamilton MD 3 [facility], [address] [id number] Social History Tobacco Use Types Packs/Day Years Used Date Smoking Tobacco: Never Smokeless Tobacco: Never Alcohol Use Standard Drinks/Week Comments Never 0 (1 standard drink = 0.6 oz pur e alcohol) Sex and Gender Information Value Date Recorded Sex Assigned at Male 07/22/2024 2:00 PM JOB DEVELOPMENT SPECIALIST Legal Sex Male 2:48 PM JOB DEVELOPMENT SPECIALIST Gender Identity Not on file Sexual Orientation Not on file COVID-19 Exposure Response Date Recorded In the last 10 days, have yo u been in contact with someone who was confirmed or suspected to have Coronavirus/COVID-19? No / Unsure 07/16/2021 3:48 PM JOB DEVELOPMENT SPECIALIST documented as of this encounter Functional Status * RETIRED Are you deaf or do you have serious difficulty hearing Answer Date of Assessment Author Status No 06/13/2021 2:44 AM JOB DEVELOPMENT SPECIALIST Activ e * RETIRED Are you blind or do you have serious difficulty seeing, even when wearing glasses? Answer Date of Assessment Author Status No 06/13/2021 2:44 AM JOB DEVELOPMENT SPECIALIST Activ e * Do you have serious [...] Description 10/04/2024 11:00 AM CDT Office Visit [facility] [address] [address] Anika Kruger APRN Three [facility] [address] [place] [address] 10/05/2024 9:45 AM CDT Office Visit [facility] [address] [place] [address] Chayo Segura PA 3 [facility] [address] [place] [address] documented as of this encounter Goals Goal Patient Goal Type Associated Problems Recent Progress Patient-Stated? Author Patient will return to prior living situation and remain independent in ADLs upon discharge from hospital General No Aline Krishna, RN documented as of this encounter Visit Diagnoses Diagnosis Anemia in stage 5 chronic kidney disease, not on chronic dialysis ([facility])- Primary documented in this encounter Care Teams Cooker Soda Relationship Specialty Start Date End Date Chandler Geronimo DO [address] [place] [address] PCP - General FAMILY PRACTICE 05/29/21 documented as of this encounter
--- OUTSIDE RECORDS SUMMARY | 2024-09-06 18:45 | XMS_ITS | Encounter Summary ---
Author Organization [facility] Address [address] [place] [address] Care Team Providers Care Commercial Review Appraiser Name Role Phone ZainabCarleen Goodwinrick Primary Care Provide r Encounter Details Date Type Department Care Team (Late st Contact Info) Description 01/10/2022 Therapy Plan [facility] Infusion Services [id number] David Hamilton MD 3 [facility], [address] [address] Social History Tobacco Use Types Packs/Day Years [...] Sex Assigned at Male 07/22/2024 2:00 PM DIETARY AID Legal Sex Male 2:48 PM DIETARY AID Gender Identity Not on file Sexual Orientation [...] Assessment Author Status No 06/13/2021 2:44 AM DIETARY AID Activ e * RETIRED Are you blind or do you have serious difficulty seeing, even when wearing glasses? Answer Date of Assessment Author Status No 06/13/2021 2:44 AM DIETARY AID Activ e * Do you have serious [...] Description 10/04/2024 11:00 AM CDT Office Visit [facility] [address] [place] [address] Anika Kruger APRN Three [facility] [address] [place] [address] 10/05/2024 9:45 AM CDT Office Visit [facility] [address] [place] [address] Chayo Segura PA 3 [facility] [address] [place], [place] [id number] documented as of this encounter Goals Goal Patient Goal Type Associated Problems Recent Progress Patient-Stated? Author Patient will return to prior living situation and remain independent in ADLs [facility] General No Aline Krishna, RN documented as of this encounter Visit Diagnoses Not on filedocumented in this encounter Additional Health Concerns Assessment Noted Time PHQ-9 Depression Total Score: 0 08/29/19 22 2:52 PM CDT documented as of this encounter Care Teams Commercial Review Appraiser Relationship Specialty Start Date End Date Chandler Geronimo DO [address] [place] [address] PCP - General FAMILY PRACTICE 05/29/21 documented as of this encounter
--- OUTSIDE RECORDS SUMMARY | 2024-09-06 18:45 | XMS_ITS | Clinical Summary ---
Author Organization [facility] Address [address] [facility] [address] Care Team Providers Care Quartz Mounter Name Role Phone Unavailable Primary Care Provider Unavailabl e Source Comments [facility],non-owned Affiliates and Associated Physician Practices is amultiple site organization consisting of ambulatory clinics and hospital sitesin [place], [place], [place] and [place]. This disclosure is being madepursuant to the Care Everywhere program and may not contain all information available regarding this patient. Last updated 18.[facility] Allergies No known active allergies Medications Be [...] Comments Blood Pressure 113/89 06/17/2011 5:40 PM CYBER INSTRUCTOR Pulse 67 06/17/2011 9:53 PM CYBER INSTRUCTOR Temperature 36.3 C (97.3 F) 06/17/2011 5:40 PM CYBER INSTRUCTOR Respiratory Rate 16 06/17/2011 5:40 PM CYBER INSTRUCTOR Oxygen Saturation 95% 06/17/2011 9:53 PM CYBER INSTRUCTOR Inhaled Oxygen Concentration - - Weight 91.6 kg (202 lb) 06/17/2011 5:40 PM CYBER INSTRUCTOR Height 177.8 cm (5' 10 ) 06/17/2011 5:40 PM CYBER INSTRUCTOR Body Mass Index 28.98 06/17/2011 5:40 PM CYBER INSTRUCTOR Plan of Treatment Health Maintenance Due Date [...]
--- OUTSIDE RECORDS SUMMARY | 2024-09-06 18:45 | XMS_ITS | Encounter Summary ---
Author Organization [facility] Address [address] [place] [address] Care Team Providers Care Crude Oil Driver Name Role Phone Chandler Geronimo DO Primary Care Provide r Reason for Visit * Reason Onset Date Comments Medication Information 09/01/2024 Encounter Details Date Type Department Care Team (Late st Contact Info) Description 09/01/2024 Telephone [facility] THREE [facility], [address] [place] [address] Chayo Segura PA 3 [facility] [address] [place] [address] Medication Information Social History Tobacco Use Types Packs/Day Years Used Date Smoking Tobacco: Never Smokeless Tobacco: Never Alcohol Use Standard Drinks/Week Comments Never 0 (1 standard drink = 0.6 oz pur e alcohol) [facility] Utilities Answer Date Recorded In the past [...] declined 10/10/2022 How often do you attend yarsani or congregational serv ices? Patient declined 10/10/2022 Do you belong to any clubs o r organizations such as yarsani groups, unions, fraternal or athletic groups, or [...] Recorded Patient Health Questionnaire-2 Score 0 07/26/2024 [facility] [place] of Occupat ional Health - Occupational Stress [...] place to sleep or slept in a long term (including now)? No 10/10/2022 Housing Stability Vital [...] time in the past 12 m [facility], were you homeless or living in a long term (including now)? 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 [address] [place], [place] [address] 10/05/2024 9:45 AM CDT Office Visit [place] [facility] [address] [place] [address] Chayo Segura PA 3 [facility] [address] [place] [address] Scheduled Orders Name Type Priority Associated Diagnoses Orde r Schedule CBC W/DIFF AUTOMATED Lab Routine Atrial fibrillation ([facility]) Expected: 09/08/2024 (Approximate), Expires: 09/01/2025 documented [...] Visit Diagnoses Diagnosis Atrial fibrillation with RVR ([facility])- Primary Atrial fibrillation Atrial fibrillation ([facility]) Atrial fibrillation documented in this encounter Additional Health Concerns Assessment Noted Time PHQ-9 Depression Total Score: 0 03/14/20 22 3:10 PM CDT documented as of this encounter Care Teams Crude Oil Driver Relationship Specialty Start Date End Date Chandler Geronimo DO [address] [place] [phone] PCP - General FAMILY PRACTICE 05/29/21 documented as of this encounter
--- OUTSIDE RECORDS SUMMARY | 2024-09-06 18:45 | XMS_ITS | Encounter Summary ---
Author Organization [facility] Address [address] [place] [address] Care Team Providers Care Supervisor Net Making Name Role Phone CarlaaleshaChandler Kothari DO Primary Care Provide r Encounter Details Date Type Department Care Team (Late st Contact Info) Description 07/28/2024 [employer] Message Enc [facility] [address] [address] [facility] Provider Orders Social History Tobacco Use Types Packs/Day Years Used Date Smoking Tobacco: Never Smokeless Tobacco: Never Alcohol Use Standard Drinks/Week Comments Never 0 (1 standard drink = 0.6 oz pur e alcohol) [facility] Utilities Answer Date Recorded In the past 12 months has [facility] [employer], gas, oil, or water [email or web address] threatened to shut off services in your [...] declined 10/10/2022 How often do you attend sabianism or zoroastrianism serv ices? Patient declined 10/10/2022 Do you belong to any clubs o r organizations such as sabianism groups, unions, fraternal or athletic groups, or [...] Recorded Patient Health Questionnaire-2 Score 0 07/26/2024 [facility] of Occupat ional Health - Occupational [...] time in the past 12 m [facility], were you homeless or living in a detention (including now)? 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 Not on file [...] Assessment Author Status No 05/28/2024 12:21 AM TIRE CLASSIFIER Gralewski, Derian M, RN Active * Do [...] Description 10/04/2024 11:00 AM CDT Office Visit [facility], [address] [address] Anika Kruger APRN Three [facility] [address] [place] [phone] 10/05/2024 9:45 AM CDT Office Visit [facility], [facility] [address] [place] [address] Chayo Segura PA 3 [facility] [address] [place], [place] [address] documented as of this encounter Goals Goal Patient Goal Type Associated Problems Recent Progress Patient-Stated? Author Patient will return to prior living situation and remain independent in ADLs upon discharge from [facility] General Aline Russell RN Health - patient [...] documented as of this encounter Care Teams Supervisor Net Making Relationship Specialty Start Date End Date Chandler Geronimo DO [address] [place] [address] PCP - General FAMILY PRACTICE 05/29/21 documented as of this encounter
--- OUTSIDE RECORDS SUMMARY | 2024-09-06 18:45 | XMS_ITS | Encounter Summary ---
Author Organization [facility] Address [address] [place] [address] Care Team Providers Care Lay Midwife Name Role Phone CarlaaleshaCarleen Kotharirick Primary Care Provide r Encounter Details Date Type Department Care Team (Late st Contact Info) Description 09/01/2024 MyChart Message Enc [facility] Medical Group Multispecialty Care - [facility] 3 [facility], [facility] [address] [place] [address] David Hamilton MD 3 [facility] [address] [place] [address] question Social History Tobacco Use Types Packs/Day Years Used Date Smoking Tobacco: Never Smokeless Tobacco: Never Alcohol Use Standard Drinks/Week Comments Never 0 (1 standard drink = 0.6 oz pur e alcohol) [facility] Utilities Answer Date Recorded In [...] declined 10/10/2022 How often do you attend lutheran or spiritism serv ices? Patient declined 10/10/2022 Do you belong to any clubs o r organizations such as lutheran groups, unions, fraternal or athletic groups, or [...] Recorded Patient Health Questionnaire-2 Score 0 07/26/2024 [facility] [place] of Occupat ional Health - Occupational Stress [...] place to sleep or slept in a halfway (including now)? No 10/10/2022 Housing Stability Vital [...] in the past 12 m [facility], were you homeless or living in a halfway (including now)? 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 Author Patient will return to prior living situation and remain independent in ADLs upon discharge from hospital General Aline Russell, RN Health - patient able to perform ADLs independently Lifestyle El Robbins, branch operations specialist - family caregiver with be involved in care transitions and discharge planning Lifestyle No Abby Eng RN documented as of this encounter Visit Diagnoses Not on filedocumented in this encounter Additional Health Concerns Assessment Noted Time PHQ-9 Depression Total Score: 0 03/14/20 22 3:10 PM CDT documented as of this encounter Care Teams Lay Midwife Relationship Specialty Start Date End Date Chandler Geronimo DO [address] [place] [address] PCP - General FAMILY PRACTICE 05/29/21 documented as of this encounter
--- OUTSIDE RECORDS SUMMARY | 2024-09-06 18:45 | XMS_ITS | Encounter Summary ---
Author Organization [facility] Address [address] [place] [address] Care Team Providers Care Scullion Chief Name Role Phone Chandler Geronimo DO Primary Care Provide r Encounter Details Date Type Department Care Team (Late st Contact Info) Description 10/21/2022 Therapy Plan [facility] Infusion Services [address] [phone] David Hamilton MD 3 [facility], [address] [phone] Social History Tobacco Use Types Packs/Day Years [...] declined 10/10/2022 How often do you attend mu-ism or yarsani serv ices? Patient declined 10/10/2022 Do you belong to any clubs o r organizations such as mu-ism groups, unions, fraternal or athletic groups, or [...] Recorded Patient Health Questionnaire-2 Score 0 10/21/2022 [facility] of Occupat ional Health - Occupational Stress [...] place to sleep or slept in a jail (including now)? No 10/10/2022 Sex and Gender Information Value Date Recorded Sex Assigned at Male 07/22/2024 2:00 PM FEEDER/FOLDER Legal Sex Male 2:48 PM FEEDER/FOLDER Gender Identity Not on file Sexual Orientation [...] Description 10/04/2024 11:00 AM CDT Office Visit [facility], [address] [address] Anika Kruger APRN Three [facility] [address] [facility] [place], [place] [address] 10/05/2024 9:45 AM CDT Office Visit [facility], [address] [address] Chayo Segura PA 3 [facility] [address] [place] [phone] documented as of this encounter Goals Goal [...] documented as of this encounter Care Teams Scullion Chief Relationship Specialty Start Date End Date Chandler Geronimo DO [address] [place] [address] PCP - General FAMILY PRACTICE 05/29/21 documented as of this encounter
--- OUTSIDE RECORDS SUMMARY | 2024-09-06 18:45 | XMS_ITS | Clinical Summary ---
Author Organization [facility] Address [address] [place] [address] Care Team Providers Care Iuss Master Analyst Name Role Phone Chandler Geronimo Primary Care [...] by mouth daily. Active epoetin rosette-epbx (RETACRIT) 43383 Units/mL injectionIndications: End Stage Renal Disease on Hemodialysis Inject 1 mL (10,000 Units total) into the skin 3 (three) times a week. Indications: Assisted Kidney Failure Treated with Hemodialysis On Friday, Friday and Friday with hemodialysis 12 mL 2024 Active allopurinol (ZYLOPRIM) 100 MG tabletIndications:Hyp eruricemia Take 1 tablet (100 mg total) by mouth 3 (three) times a week. On Friday, Friday and Friday after hemodialysis 12 tablet 2024 Active furosemide (LASIX) 40 MG tabletIndications:ESR D (end stage renal disease) on dialysis ([facility]) Take 3 tablets (120 mg total) by mouth 2 (two) times a day, 3 (three) days a week. Take 3 tablets (120 mg total) two times a day on non-dialysis days (Friday, Friday, and Friday) 96 tablet 2024 Active B vlbkfon-O-ecsyv acid 0.8 mg (DIALYVITE/NEPHRO-VIT E) Tab tabletIndications:End stage renal disease ([facility]) Take 1 tablet by mouth daily. 30 [...] 3 08/31 Discontinued amLODIPine (NORVASC) 10 MG tabletIndications:Idxie christiana hypertension Take 1 tablet (10 mg total) by mouth daily. 90 tablet 3 09/01 Discontinued( Stop Taking at Discharge) epoetin rosette-epbx (RETACRIT) 81383 Units/mL injectionIndications: Anemia in stage 5 chronic kidney disease, not on chronic dialysis ([facility]) Inject 4 mLs (40,000 Units total) into the skin every 14 (fourteen) days. New dose 6 mL 6 09/01 Discontinued( Stop Taking at Discharge) furosemide (LASIX) 80 MG tabletIndications:CKD (chronic kidney disease) stage 5, GFR less than 15 ml/min ([facility]) Take 1.5 tablets (120 mg total) by mouth 2 (two) times daily. 270 tablet 3 09/01 Discontinued( Stop Taking at Discharge) Active Problems Problem Noted Date Diagnosed Date Atrial fibrillation with RVR ([facility]) 0 08/24/2024 Diastolic heart failure ([facility]) 2024 ESRD (end stage renal diseas e) on dialysis ([facility]) 06/01/2024 GIB (gastrointestinal bleeding) 05/27/2024 Hyperlipidemia 12/23/2022 Iron deficiency anemia 10/21/2022 LEANDRO (acute kidney injury) 10/11/2022 Anemia due to chronic renal failure treated with erythropoietin, unspecified CKD stage 10/10/2022 CKD (chronic kidney disease) stage 4, GFR 15-29 ml/min ([facility]) 11/22/2021 Albuminuria 10/08/2021 Vitamin D insufficiency 08/30/2021 Acidosis 07/16/2021 Hyperuricemia 07/16/2021 Anemia in stage 5 chronic ki dney disease, not on chronic dialysis ([facility]) 06/28/2021 Primary hypertension 06/28/2021 Type 2 diabetes mellitus wit h stage 5 chronic kidney disease not on chronic dialysis, unspecified whether care home insulin use ([facility]) 06/28/2021 ANCA-associated vasculitis ([facility]) Edema, unspecified type 06/28/2021 Acute kidney injury 05/29/2021 Resolved Problems Problem Noted Date Diagnosed Date Resolved Date Pneumonia 06/13/2021 06/19/2021 Encounters Date Type Department Care Team Description 09/03/2024 Hospital Follow-up Call [facility] Care Management [facility] [place] [address] Jen Larson LPN Follow Up Call (MARA 08/24-09/01/24) 09/01/2024 Telephone [facility] [address] [address] [place] [address] Chayo Segura PA Medication Information 09/01/2024 [facility] Message [facility] [address], [facility] [address] [place] [phone] Tirso Cooper MD question 08/31/2024 [facility]phone [facility] - [facility] [address] [facility], [facility] [address] [place] [phone] Tirso Cooper MD Question 08/26/2024 Telephone [facility] - [facility] [address] [facility], [facility] [address] [place] [phone] Tirso Cooper MD Question; Referral 08/24/2024 2:18 PM CDT - 09/01/2024 2:42 PM CDT Hospital Encounter [facility] [place] [address] Ismael Brennan MD Jumean, Khaled, MD Conti, John R, ANGELAC Radha House, FARM LABOR CONTRACTOR Savanna Hawk, WILDER Woodson, Christiana Centeno, ALEX Dizziness; Chest Pain Discharge Disposition: Home or Self Care (Routine Discharge) 08/24/2024 Telephone [facility] Medical [facility] - [facility] [address] [facility], [facility] [address] [place] [phone] Tirso Cooper MD Information 08/24/2024 Travel 08/24/2024 Telephone [facility] [address] [address] Tirso Cooper MD Question 08/23/2024 Telephone [facility] [address] [phone] Tirso Cooper MD Error 08/20/2024 3:20 PM CDT - 08/20/2024 11:59 PM CDT Hospital Encounter [facility] [place] [address] Tirso Cooper MD Discharge Disposition: Home or Self Care (Routine Discharge) 08/20/2024 3:20 PM CDT Hospital Encounter [facility] [place] [address] Tirso Cooper MD Discharge Disposition: Home or Self Care (Routine Discharge) 08/20/2024 Travel 08/20/2024 Telephone [facility] - [facility] [address] [facility], [place] [address] [place] [address] Tirso Cooper MD Information 08/19/2024 3:00 PM CDT Treatment [facility] [place] [address] Tirso Cooper MD Injection 08/19/2024 Orders Only [facility] - [facility] [address] [facility], [place] [address] [place] [address] Tirso Cooper MD 08/19/2024 Telephone [facility] - [address], [facility] [address] [place] [address] Tirso Cooper MD Information 08/19/2024 Travel 08/16/2024 Telephone [facility] [address] [phone] Tirso Cooper MD Error 08/05/2024 3:00 PM LINK AND LINK KNITTING MACHINE OPERATOR Treatment [facility] [address] Tirso Cooper MD Injection 08/05/2024 Travel 07/29/2024 Telephone [facility] [address] [address] Tirso Cooper MD Medication 07/28/2024 MyChart Message Enc [facility] [address] [address] [facility] Provider Orders 07/28/2024 Orders Only [facility] [address] Tirso Cooper MD 07/26/2024 11:52 AM LINK AND LINK KNITTING MACHINE OPERATOR - 07/26/2024 11:59 PM LINK AND LINK KNITTING MACHINE OPERATOR Hospital Encounter [facility] [place] [address] Tirso Cooper MD Discharge Disposition: Home or Self Care (Routine Discharge) 07/26/2024 11:00 AM LINK AND LINK KNITTING MACHINE OPERATOR Office Visit [facility] - [address], [facility] [address] [place] [address] Tirso Cooper MD CKD Follow-up 07/26/2024 Telephone [facility] Medical [facility] - [address], [address] [address] [place] [phone] Tirso Cooper MD Results 07/26/2024 Telephone [facility] [address] [phone] Tirso Cooper MD Results 07/26/2024 Travel 07/22/2024 3:00 PM LINK AND LINK KNITTING MACHINE OPERATOR Treatment [facility] [place] [address] Tirso Cooper MD 07/22/2024 2:15 PM LINK AND LINK KNITTING MACHINE OPERATOR [facility] [address] [place] [address] Layton Herrera MD Surgery Follow Up 07/22/2024 Travel 07/16/2024 Orders Only [facility] - [address], [place] [address] [place] [address] Tirso Cooper MD 07/15/2024 Telephone [facility] [address] [phone] Tirso Cooper MD Medication 07/14/2024 Orders Only [facility] - [address], [place] [address] [place] [address] Christiana Goel LPN 07/08/2024 3:00 PM LINK AND LINK KNITTING MACHINE OPERATOR Treatment [facility] [place] [address] Tirso Cooper MD 07/08/2024 Travel 07/07/2024 Orders Only [facility] - [address], [place] [address] [place] [address] Tirso Cooper MD 06/24/2024 3:00 PM LINK AND LINK KNITTING MACHINE OPERATOR Treatment [facility] Infusion Services at [facility] [place] [address] Tirso Cooper MD 06/24/2024 Travel 06/17/2024 MyChart Message Enc [facility], [address] [place] [address] Layton Herrera MD Patient Jayleen Cook 06/14/2024 2:20 PM LINK AND LINK KNITTING MACHINE OPERATOR [facility] [address], [place] [address] [place] [address] Tirso Cooper MD Chronic Kidney Disease 06/14/2024 Travel 06/11/2024 Orders Only [facility] [address], [place] [address] [place] [address] Tirso Cooper MD 06/10/2024 3:00 PM LINK AND LINK KNITTING MACHINE OPERATOR Treatment [facility] Infusion Services at [facility] [place] [address] Tirso Cooper MD Injection 06/10/2024 Travel 06/08/2024 [facility] - [address] [place] [address] Roger Easton MD Results from Last 3 Months Immunizations Name Administration Dates Next Due Influenza (Generic) 05/03/2024,02/18/2014 Influenza Adult (Generic) 04/17/2023,04/05/2021 PFIZER COVID-19 (ORIGINAL FO RMULATION, PURPLE CAP) mRNA, LNP-S, PF, 30 MCG/0.3 ML DOSE 12/22/2021,10/04/2020 Pneumococcal (Pneumovax 23) 02/18/2014, 4 Pneumococcal (Prevnar 13) 11/26/2017 Pneumococcal (Prevnar 20) 05/03/2024 Tdap (Generic) 08/27/2016,02/25/2016 Zoster (Zostavax) 69192 Unt/0.65Ml 02/25/2016 Family History Medical History Relation [...] drink = 0.6 oz pur e alcohol) [facility] [employer] unlimited[employer] Answer Date Recorded In the past 12 months has [employer], oil, or water [employer] threatened to shut off services in your [...] declined 10/10/2022 How often do you attend zoroastrianism or taoist serv ices? Patient declined 10/10/2022 Do you belong to any clubs o r organizations such as zoroastrianism groups, unions, fraternal or athletic groups, or [...] Recorded Patient Health Questionnaire-2 Score 0 07/26/2024 [facility] Occupational Stress Questionnaire [...] place to sleep or slept in a group home (including now)? No 10/10/2022 Housing Stability [...] any time in the past 12 m [facility], were you homeless or living in a group home (including now)? 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 [employer] Not on cindy e Not on file [...] CDT Office [facility] [place] [address] [place] [address] Anika Kruger APRN Three [facility] [address] [place] [address] 10/05/2024 9:45 AM CDT Office Visit [facility] [place] [address] [place] [address] Chayo Segura PA 3 [facility] [address] [place], [place] [phone] Health Maintenance Due Date Last Done Comments [...] Colonoscopy (10 Years) Discontinued 05/29/2024 PHQ-2 (Physician [place]) Completed 07/26/2024 Colorectal Cancer Screening FIT/FOBT (1 [...] remain independent in ADLs upon discharge from [facility] Aline Russell RN Health - patient [...] COMPREHENSIVE METABOLIC PANEL Routine 08/05/2024 3:45 PM LINK AND LINK KNITTING MACHINE OPERATOR Anemia in stage 5 chronic kidney disease, not on chronic dialysis (CMS/HCC HHS/HCC) CBC W/DIFF AUTOMATED Routine 08/05/2024 3:45 PM LINK AND LINK KNITTING MACHINE OPERATOR Anemia in stage 5 chronic kidney disease, not on chronic dialysis (CMS/HCC HHS/HCC) CBC, AUTO, NO DIFF Routine 07/26/2024 12 :13 PM LINK AND LINK KNITTING MACHINE OPERATOR CKD (chronic kidney disease) stage 5, GFR less than 15 ml/min (CMS/HCC HHS/HCC) URIC ACID BLOOD Routine 07/26/2024 12:13 PM LINK AND LINK KNITTING MACHINE OPERATOR CKD (chronic kidney disease) stage 5, GFR less than 15 ml/min (CMS/HCC HHS/HCC) PTH - INTACT Routine 07/26/2024 12:13 PM LINK AND LINK KNITTING MACHINE OPERATOR CKD (chronic kidney disease) stage 5, GFR less than 15 ml/min (CMS/HCC HHS/HCC) BASIC METABOLIC PANEL Routine 07/26/2024 12:13 PM LINK AND LINK KNITTING MACHINE OPERATOR CKD (chronic kidney disease) stage 5, GFR less than 15 ml/min (CMS/HCC HHS/HCC) VITAMIN D, 25 OH Routine 07/26/2024 12:1 3 PM LINK AND LINK KNITTING MACHINE OPERATOR CKD (chronic kidney disease) stage 5, GFR less than 15 ml/min (CMS/HCC HHS/HCC) HEMOGLOBIN AND HEMATOCRIT Routine 2024 1:55 PM LINK AND LINK KNITTING MACHINE OPERATOR Anemia in stage 5 chronic kidney disease, not on chronic dialysis (CMS/HCC HHS/HCC) CBC, AUTO, NO DIFF Routine 06/10/2024 3: 03 PM LINK AND LINK KNITTING MACHINE OPERATOR CKD (chronic kidney disease) stage 5, GFR less than 15 ml/min (CMS/HCC HHS/HCC) IRON SAT PANEL (IRON,IBC,%SAT) Routine 06/10/2024 3:03 PM LINK AND LINK KNITTING MACHINE OPERATOR Anemia in stage 5 chronic kidney disease, not on chronic dialysis (CMS/HCC HHS/HCC) FOLIC ACID SERUM Routine 06/10/2024 3:03 PM LINK AND LINK KNITTING MACHINE OPERATOR Anemia in stage 5 chronic kidney disease, not on chronic dialysis (CMS/HCC HHS/HCC) FERRITIN Routine 06/10/2024 3:03 PM LINK AND LINK KNITTING MACHINE OPERATOR Anemia in stage 5 chronic kidney disease, not on chronic dialysis (CMS/HCC HHS/HCC) VITAMIN B-12 Routine 06/10/2024 3:03 PM LINK AND LINK KNITTING MACHINE OPERATOR Anemia in stage 5 chronic kidney disease, not on chronic dialysis (CMS/HCC HHS/HCC) BASIC METABOLIC PANEL Routine 06/10/2024 3:03 PM LINK AND LINK KNITTING MACHINE OPERATOR Anemia in stage 5 chronic kidney disease, not on chronic dialysis (CMS/[facility] HHS/HCC) LEANDRO (acute kidney injury) LIPID PANEL Routine 10/12/2022 7:06 AM CDT HEPATITIS PANEL,ACUTE Routine 05/30/2021 1:20 PM LINK AND LINK KNITTING MACHINE OPERATOR from Last 3 Months or Most Recently Relevant to Health Maintenance Results * (ABNORMAL) POCT glucose (09/01/2024 12:55 PM CDT) Only the most recent of31 resultswithin the time period is included. [facility] GLUCOSE POC 108(H) 70 - 99 mg/dL 09/01/2024 1:02 PM CDT [facility] 09/01/2024 12:5 5 PM CDT us Christiana Woodson APNP POCT ORDERABLES - DEVICE Final Result [facility] [address] [place] [address], [place] [phone] * (ABNORMAL) BASIC METABOLIC PANEL (09/01/2024 6:32 AM CDT) Only the most recent of7 resultswithin the time period is included. [facility] GLUCOSE 107(H) 70 - 99 MG/DL 09/01/2024 7:56 AM [facility] BUN 80(H) 7 - 18 MG/DL 09/01/2024 7:56 AM [facility] CREATININE S/P/B 6.60(HH) 0.7 - 1.3 MG/DL 09/01/2024 7:56 AM [facility] Comment:NOT CALLED PER CRITI JARAD VALUE POLICY SODIUM S/P/B 135(L) 136 - 145 MMOL/L 09/01/2024 7:56 AM T [facility] POTASSIUM S/P/B 4.0 3.5 - 5.1 [...] Christiana Woodson [facility] Final Res ult [facility] [address] [place] [address], [place] [phone] * (ABNORMAL) CBC W/DIFF AUTOMATED (09/01/2024 6:32 AM CDT) Only the most recent of11 resultswithin the time period is included. WBC 8.99 4.5 - 11.0 x10'3/uL 09/01/2024 7:27 AM CDT [facility] RBC 2.57(L) 4.70 - 6.10 x10'6/uL 09/01/2024 7:27 AM CDT [facility] HGB 7.6(L) 14.0 - 18.0 G/DL 09/01/2024 7:27 AM CDT [facility] HCT 24.6(L) 43.0 - 54.0 % 09/01/2024 7:27 AM CDT [facility] MCV 95.7(H) 80.0 - 94.0 FL 09/01/2024 7:27 AM CDT [facility] MCH 29.6 27.0 - 31.0 PG 09/01/2024 7:27 AM CDT [facility] MCHC 30.9(L) 32.0 - 36.0 G/DL 09/01/2024 7:27 AM CDT [facility] RDW 18.3(H) 11.5 - 14.5 % 09/01/2024 7:27 AM CDT [facility] PLT 318 130 - 400 x10'3/uL 09/01/2024 7:27 AM CDT [facility] MPV 9.6 9.3 - 12.2 FL 09/01/2024 7:27 AM CDT [facility] DIFFERENTIAL TYPE AUTOMATED DIFFERENTIAL 09/01/2024 7:27 AM CDT [facility] NEUTROPHILS % 77.4 % 09/01/2024 7:27 AM CDT [facility] LYMPHOCYTES % 9.1 % 09/01/2024 7:27 AM CDT [facility] MONOCYTES % 10.3 % 09/01/2024 7:27 AM CDT [facility] EOSINOPHILS 2.0 % 09/01/2024 7:27 AM CDT [facility] BASOPHILS 0.4 % 09/01/2024 7:27 AM CDT [facility] IMMATURE GRANS % 0.8 % 09/02/19 7:27 AM CDT [facility] ABS. NEUTROPHILS 6.95 1.80 - 7.70 x10'3/uL 09/01/2024 7:27 AM CDT [facility] ABS. LYMPHOCYTES 0.82(L) 1.00 - 4.80 x10'3/uL 09/01/2024 7:27 AM CDT [facility] ABS. MONOCYTES 0.93(H) 0.30 - 0.82 x10'3/uL 09/01/2024 7:27 AM CDT [facility] ABS. EOSINOPHILS 0.18 0.04 - 0.54 x10'3/uL 09/01/2024 7:27 AM CDT [facility] ABS. BASOPHILS 0.04 0.01 - 0.08 x10'3/uL 09/01/2024 7:27 AM CDT [facility] ABS. IMMATURE GRANULOCYTES 0.07 0.00 - 0.49 x10'3/uL 09/01/2024 7:27 AM CDT [facility] 09/01/2024 6:3 2 AM CDT us Christiana Woodson [facility] Final Res ult Performing Organization Address City/[facility]/ZIP Co de Phone Number [facility] [address] [place] [address], * PHOSPHORUS, INORGANIC PHOSPHATE (08/31/2024 5:57 AM CDT) Only the most recent of2 resultswithin the time period is included. PHOSPHORUS 4.8 2.5 - 4.9 MG/DL 08/31/2024 11:18 AM CDT [facility] 08/31/2024 5:57 AM CDT Christiana Woodson [facility] Final Res ult Performing Organization Address [facility] Co de Phone Number [facility] [address] [place] [id number], * MAGNESIUM (08/31/2024 5:57 AM CDT) Only the most recent of4 resultswithin the time period is included. MAGNESIUM 2.2 1.8 - 2.4 MG/DL 08/31/2024 11:18 AM CDT [facility] 08/31/2024 5:57 AM CDT us Christiana Woodson [facility] Final Res ult Performing Organization Address City/[facility]/ZIP Co de Phone Number [facility] [address] [place] [address], * MRI ENTEROGRAPHY (08/29/2024 12:01 PM CDT) [...] 1:18 PM Narrative 08/29/2024 1:34 PM [address]T [address] [address] EXAM: MRI ENTEROGRAPHY DATE: 08/29/2024 COMPARISON: None. [...] Procedure Note Crispin Wagner MD - 08/29/[address] [address] EXAM: MRI ENTEROGRAPHY DATE: 08/29/2024 COMPARISON: None. INDICATION: Anemia, dark stools. TECHNIQUE: Precontrast and postcontrast imaging with 15 cc intravenousDotarem right antecubital fossa. FINDINGS: In the dome of the liver near the IVC, there is a 2 cm ovoid [id number] lesion present. Minimal heterogeneity on the postcontrastimages. [...] urinary tract obstruction. There are numerous bilateral [id number] lesions in the kidneys. These are of [...] OCCULT BLOOD, FECES (08/28/2024 11:48 AM CDT) [facility] OCCULT BLOOD FECAL POSITIVE(A ) NEGATIVE 08/28/2024 12:57 PM CDT [facility] STOOL SPECIMEN / Unknown 08/28/2024 11:48 AM CDT Tirso Cooper MD BODY FLUIDS AND STOOLS ORDERAB LES Final Result [facility] [address] [place] [address], [place] [phone] * (ABNORMAL) COMPREHENSIVE METABOLIC PANEL (08/27/2024 5:23 AM CDT) Only the most recent of5 resultswithin the time period is included. Pathologist [facility] GLUCOSE 117(H) 70 - 99 MG/DL 08/27/2024 6:33 AM CDT [facility] BUN 85(H) 7 - 18 MG/DL 08/27/2024 6:33 AM CDT [facility] CREATININE S/P/B 5.29(HH) 0.7 - 1.3 MG/DL 08/27/2024 6:33 AM T [facility] Comment:NOT CALLED PER CRITI JARAD VALUE POLICY SODIUM S/P/B 138 136 - 145 MMOL/L 08/27/2024 6:33 AM T [facility] POTASSIUM S/P/B 3.7 3.5 - 5.1 MMOL/L 08/27/2024 6:33 AM T [facility] CHLORIDE S/P/B 103 97 - 115 MMOL/L 08/27/2024 6:33 AM T [facility] CO2 27.2 21 - 32 MMOL/L 08/27/2024 6:33 AM T [facility] CALCIUM S/P/B 8.9 8.5 - 10.1 MG/DL 08/27/2024 6:33 AM T [facility] BILIRUBIN TOTAL S/P/B 0.5 0.2 - 1.2 MG/DL 08/27/2024 6:33 AM T [facility] Comment: THIS ASSAY IS NOT RECOMMENDED FOR PATIENTS UNDERGOING TREATMENT WITH ELTROMBOPAG DUE TO THE POTENTIAL FOR FALSELY ELEVATED RESULTS. TOTAL PROTEIN S/P/B 5.5(L) 6.4 - 8.2 G/DL 08/27/2024 6:33 AM T [facility] ALBUMIN S/P/B 2.6(L) 3.4 - 5.0 G/DL 08/27/2024 6:33 AM T [facility] AST 8(L) 15 - 37 U/L 08/27/2024 6:33 AM T [facility] ALT 19 16 - 60 U/L 08/27/2024 6:33 AM T [facility] ALKALINE PHOSPHATASE S/P/B 74 50 - 136 U/L 08/27/2024 6:33 AM CDT [facility] ANION GAP 7.8 2 - 10 MMOL/L 08/27/2024 6:33 AM CDT [facility] BUN CREATININE RATIO 16.1 6 - 26 08/27/2024 6:33 AM CDT [facility] A/G RATIO 0.9(L) 1.0 - 2.0 RATIO 08/27/2024 6:33 AM CDT [facility] GFR ESTIMATE 11(L) >90 ML/MIN/1.7 3 M2 08/27/2024 6:33 AM CDT [facility] Comment: NOTE: eGFR is [...] CDT Joann Sherman NP LABORATORY Final Result [facility] [address] [place] [address], * TRANSFUSE RED BLOOD CELLS (08/26/2024 11:33 AM CDT) Dagmar Barakat MD NURSING TREATMENT ORDERABLES - BLOOD ADMIN Final Result * (ABNORMAL) HEPARIN, ANTI XA, UFH (08/26/2024 6:05 AM CDT) Only the most recent of3 resultswithin the time period is included. HEPARIN ANTI XA UFH <0.04(L) 0.30 - 0.70 IU/ML 08/26/2024 7:05 AM CDT [facility] Comment: UFH Therapeutic Anti Xa Ranges: Medical Therapeutic Range: 0.30 - 0.70 IU/mL Cardiac Therapeutic Range: 0.30 - 0.50 IU/mL Neuro Therapeutic Range: 0.20 - 0.40 IU/mL 08/26/2024 6:05 AM CDT Ori Hodges PA-C LABORATORY Final Result Performing Organization Address City/[facility]/ZIP Co de Phone Number [facility] [address] [place] [address] [id number], * (ABNORMAL) IRON SAT PANEL (IRON,IBC,%SAT) (08/26/2024 6:05 AM CDT) Only the most recent of2 resultswithin the time period is included. IRON 14(L) 65.0 - 175.0 MCG/DL 08/26/2024 6:51 AM CDT [facility] IRON BINDING CAPACITY 218(L) 250 - 450 MCG/DL 08/26/2024 6:51 AM CDT [facility] IRON SATURATION 6(L) 20 - 55 % 6:51 AM CDT [facility] 08/26/2024 6:05 AM CDT Tirso Cooper MD LABORATORY Final Result Performing Organization Address City/[facility]/ZIP Co de Phone Number [facility] [address] [place] [address], * VITAMIN B-12 (08/26/2024 6:05 AM CDT) Only the most recent of2 resultswithin the time period is included. VITAMIN B12 S/P/B 934 254 - 1,320 PG/ML 08/26/2024 7:16 AM CDT [facility] 08/26/2024 6:05 AM CDT Tirso Cooper MD LABORATORY Final Result Performing Organization Address City/[facility] Co de Phone Number [facility] [address] [place] [address], [place] [phone] * (ABNORMAL) FOLIC ACID SERUM (08/26/2024 6:05 AM CDT) Only the most recent of2 resultswithin the time period is included. FOLATE 36.9(H) 3.1 - 17.5 NG/ML 08/26/2024 7:16 AM CDT [facility] 08/26/2024 6:05 AM CDT Tirso Cooper MD LABORATORY Final Result Performing Organization Address City/[facility] Co de Phone Number [facility] [address] [place] [address], [place] [phone] * FERRITIN (08/26/2024 6:05 AM CDT) Only the most recent of2 resultswithin the time period is included. FERRITIN 79.3 8.0 - 388.0 NG/ML 08/26/2024 7:16 AM CDT [facility] 08/26/2024 6:05 AM CDT Tirso Cooper MD LABORATORY Final Result Performing Organization Address City/[facility]/ZIP Co de Phone Number [facility] [address] [place] [address], [place] [phone] * (ABNORMAL) HEMOGLOBIN AND HEMATOCRIT (08/26/2024 1:11 AM CDT) Only the most recent of3 resultswithin the time period is included. [facility] HGB 6.7(LL) 14.0 - 18.0 G/DL 08/26/2024 1:43 AM CDT [facility] Comment: This result has been called to TREY BANUELOS by [id number] on 08/26/2024 01:42:49, and has been read back. HCT 20.9(L) 43.0 - 54.0 % 08/26/2024 1:43 AM CDT [facility] 08/26/2024 1:11 AM CDT Dagmar Barakat MD LABORATORY Final Result [facility] [address] [place] [id number], [place] [phone] * TYPE & SCREEN (08/26/2024 1:11 AM CDT) [facility] UNITS ORDERED 1 08/26/2024 2:09 AM CDT [facility] ABO/RH O POSITIVE 08/26/2024 2:09 AM CDT [facility] ANTIBODY SCREEN NEGATIVE 2:09 AM CDT [facility] SAMPLE EXPIRATION 08/29/2024,2359 08/26/2024 2:09 AM CDT [facility] BLOOD UNIT NUMBER [id number] 08/26/2024 2:10 AM CDT [facility] PRODUCT: PC LEUKOPOOR 08/26/2024 2:10 AM CDT [facility] UNIT DIVISION 00 08/26/2024 2:10 AM CDT [facility] BLOOD UNIT STATUS TRANSFUSED,FINAL 08/27/2024 8:06 AM CDT [facility] ISSUE DATE/TIME [id number] 025 8:06 AM CDT [facility] PRODUCT CODE [id number] 08/27/2024 8:06 AM CDT [facility] ABO/RH Unit O POS 08/27/2024 8:06 AM CDT [facility] ABO/RH UNIT ISBT CODE 5100 08/27/2024 8:06 AM CDT [facility] BLOOD UNIT EXPIRATION DATE [id number] 08/27/2024 8:06 AM CDT [facility] TRANSFUSION STATUS OK TO TRANSFUSE 08/26/2024 2:10 AM CDT [facility] CROSSMATCH COMPATIBLE-EXM 08/26/2024 2:10 AM CDT [facility] 08/26/2024 1:11 AM CDT Ori Hodges PA-C BLOOD BANK TEST ORDERABLES Fin al Result [facility] [address] [place] [address], [place] [phone] * USE ECHO 2D FU LTD W CON (08/25/2024 4:54 PM CDT) Anatomical Region Laterality Modality NA Echocardiogram 08/25/2024 4:26 PM CDT Narrative 08/26/2024 1:54 PM CDT Echocardiography Report Pat.Name: JAYLEEN CHAVEZ Pat.ID: [id number] .Date: 08/25/2024 Exam Time: 4:26:00 PM Study Type:ECHO WITH CARDIAC DOPPLER COMP Height: 69 in Weight: 161 lb BSA: 1.88 m2 Age: 8 1950,74Y Sex: M BP: 116/43 HR: 72 bpm Sonogrphr: Keisha Max Pat. Stat.:Inpatient Room: [facility] Reason for Study:Atrial fibrillation / flutter Procedures: [...] 08/26/2024 Echocardiography Report Pat.Name: JAYLEEN CHAVEZ Pat.ID: [id number] .Date: 08/25/2024 Exam Time: 4:26:00 PM Study Type:ECHO WITH CARDIAC DOPPLER COMP Height: 69 in Weight: 161 lb BSA: 1.88 m2 Age: 8 1950,74Y Sex: M BP: 116/43 HR: 72 bpm Sonogrphr: Keisha Max Pat. Stat.:Inpatient Room: [facility] Reason for Study:Atrial fibrillation / flutter Procedures: [...] HEMOGLOBIN, GLYCOSYLATED (08/25/2024 6:44 AM CDT) Pathologist [facility] HGB A1C 5.9(H) <5.7 % 08/25/2024 9:03 AM CDT [facility] Comment: ADA GUIDELINES 2010 5.7 TO 6.4% INCREASED RISK OF DIABETES > OR = 6.5% CONSISTENT WITH DIABETES ESTIMATED AVG GLUCOSE 123 mg/dL 08/25/2024 9:03 AM CDT [facility] 08/25/2024 6:44 AM CDT Joann Sherman NP LABORATORY Final Result [facility] [address] [place] [address], [place] [phone] * (ABNORMAL) PRO-BRAIN NATRIURETIC PEPTIDE (08/24/2024 8:14 PM CDT) Pathologist [facility] PRO-B TYPE NATRIURETIC PEPTIDE 4,591(H) <450 PG/ML 08/24/2024 9:14 PM CDT [facility] Comment: CUT POINTS ESTABLISHED BY INTERNATIONAL [...] CDT Joann Sherman NP LABORATORY Final Result [facility] [address] [place] [address], [place] [phone] * CT HEAD WO CON (08/24/2024 4:59 PM CDT) Anatomical Region Laterality Modality Head Computed Tomogra phy 08/24/2024 5:31 PM CDT Impressions 08/24/2024 5:33 PM CDT IMPRESSION: 1. No definite CT evidence of acute intracranial abnormality, as above. 2. Small vessel disease and volume loss. Ordered By: ISMAEL BRENNAN Interpreted By: Owen Hermosillo MD, 08/24/2024 5:31 PM Narrative 08/24/2024 5:[address] [facility] [address] [place], [place] [address] DATE: 08/24/2024 4:53 PM EXAMINATION: CT of [...] Procedure Note Owen Hermosillo MD - 08/24/[address] [address] DATE: 08/24/2024 4:53 PM EXAMINATION: CT of [...] 116. No ectopy us Ismael Brennan MD [facility]ANCISCO Final Result * ECG 12 lead (08/24/2024 4:12 PM CDT) Only the most recent of2 resultswithin the time period is included. 08/24/2024 4:12 PM CDT Narrative [facility] RAD - 08/25/2024 8:51 PM CDT [facility] [address] Test Date: 2024-08-24 Pat Name: JAYLEEN COOK MACY Department: 41 Room: [facility] Gender: Male Story Teller: KLAvi : 1950 Requested By: ROSARIO MOCK Order Number: [id number] Reading MD: Irina Moody Measurements Intervals [place] Rate: 116 P: 0 [place]: 0 QRS: 65 QRSD: 154 T: 39 QT: 359 QTc: 500 Interpretive Statements ATRIAL FIBRILLATION WITH RAPID VENTRICULAR RESPONSE RIGHT BUNDLE BRANCH BLOCK [120+ ms QRS DURATION, UPRIGHT V1, 40+ ms S IN I/aVL/V4/V5/V6] Compared to ECG 08/24/2024 14:11:33 No significant changes Procedure Note Irina Moody MD - 08/25/[address] Test Date: 2024-08-24 Pat Name: JAYLEEN CAVAZOS Department: 41 Room: B4 Gender: Male Story Teller: TRAVON : 1950 Requested By: ROSARIO MOCK Order Number: [id number] Reading MD: Irina Moody Measurements Intervals [place] Rate: 116 P: 0 [place]: 0 QRS: 65 QRSD: 154 T: 39 QT: 359 QTc: 500 Interpretive Statements ATRIAL FIBRILLATION WITH RAPID VENTRICULAR RESPONSE RIGHT BUNDLE BRANCH BLOCK [120+ ms QRS DURATION, UPRIGHT V1, 40+ ms SIN I/aVL/V4/V5/V6] Compared to ECG 08/24/2024 14:11:33 No significant changes us Rosario SPARKS ECG ORDERABLES Final Result [facility] * TROPONIN, QUANT (08/24/2024 4:08 PM CDT) Only the most recent of2 resultswithin the time period is included. TROPONIN I HIGH SENSITIVITY 32 <79 ng/L 08/24/2024 4:48 PM CDT [facility] Comment: HIGH DOSES OF BIOTIN, TROPONIN-SPECIFIC AUTOANTIBODIES, AND ANTIBODY THERAPY CONTAINING HAMA MAY INTERFERE WITH THIS TEST RESULT. CORRELATION TO CLINICAL HISTORY AND PRESENTATION RECOMMENDED. 08/24/2024 4:08 PM CDT us Rosario SPARKS LABORATORY Final Result [facility] [address] [place] [address], [place] [phone] * LACTIC ACID W REFLEX (SEPSIS) (08/24/2024 3:36 PM CDT) LACTIC ACID VENOUS 0.8 0.4 - 2.0 MMOL/L 08/24/2024 4:15 PM CDT [facility] 08/24/2024 3:36 PM CDT Ismael Brennan MD LABORATORY Final Result [facility] [address] [place] [address], * PARTIAL THROMBOPLASTIN TIME,PTT (08/24/2024 3:36 PM CDT) PTT 30.4 25.1 - 36.5 SEC 08/24/2024 4:22 PM CDT [facility] 08/24/2024 3:36 PM CDT Ismael Brennan MD LABORATORY Final Result [facility] [address] [place] [address], [place] [phone] * (ABNORMAL) PROTIME/INR, VENOUS (08/24/2024 3:36 PM CDT) PROTIME 13.3(H) 10.2 - 12.9 SEC 08/24/2024 4:22 PM CDT [facility] INR 1.2 08/24/2024 4:22 PM CDT [facility] Comment: Recommended INR Therapeutic Goals: 2.0-3.0 Routine Therapy 2.5-3.5 Mechanical Prosthetic Valves (High Risk) 08/24/2024 3:36 PM CDT us Ismael Brennan MD LABORATORY Final Result [facility] [address] [place] [address], [place] [phone] * LIPASE (08/24/2024 3:36 PM CDT) LIPASE 32 13 - 75 UNITS/L 08/24/2024 4:11 PM CDT [facility] 08/24/2024 3:36 PM CDT Ismael Brennan MD LABORATORY Final Result Performing Organization Address [facility] Co de Phone Number [facility] [address] [place] [address], [place] [phone] * XR CHEST PORTABLE (08/24/2024 2:40 PM CDT) Anatomical Region Laterality Modality Chest Radiographic Marie ging 08/24/2024 2:42 PM CDT Impressions 08/24/2024 2:44 PM CDT =====IMPRESSION:===== Mild cardiomegaly, central pulmonary vascular congestion, and interstitial edema. Ordered By: ROSARIO MOCK Interpreted By: Davin Corral MD, 08/24/2024 2:42 PM Narrative 08/24/2024 2:[address] [facility] [address], [place] [address] Examination: Chest x-ray 1 view Exam date/time: [...] Note Davin Corral MD - 08/24/2024 [facility] [address], [place] [address] Examination: Chest x-ray 1 view Exam date/time: [...] PM Narrative 08/20/2024 5:[address] [facility] [address], [place] [address] 2 VIEWS OF THE CHEST Clinical history: End-stage renal disease Comparison: May 28, 2024 2 views of the chest demonstrate the cardiac silhouette to be normal in size and appears stable. The pulmonary vessels appear normal. The Lungs are clear. No consolidations or effusions are seen. Procedure Note Minor Jo MD - 08/20/2024 [facility] [address], [place] [address] 2 VIEWS OF THE CHEST Clinical history: [...] - 80.1 PG/ML 08/20/2024 4:19 PM CDT [facility] 08/20/2024 3:42 PM CDT Tirso Cooper MD LABORATORY Final Result [facility] [address] [place] [address], [place] [phone] * HEPATITIS B SURFACE AG, EIA (08/20/2024 3:42 PM CDT) HEPATITIS B SURFACE AG NON-REACTI VE NON-REACTI VE 08/20/2024 4:30 PM CDT [facility] 08/20/2024 3:42 PM CDT us Tirso Cooper MD LABORATORY Final Result [facility] [address] [place] [address], [place] [phone] * HEPATITIS B SURFACE ANTIBODY (08/20/2024 3:42 PM CDT) HEP B SURFACE AB NON-REACTI VE 08/20/2024 5:24 PM CDT [facility] 08/20/2024 3:42 PM CDT us Tirso Cooper MD LABORATORY Final Result Performing Organization Address City/[facility]/ZIP Co de Phone Number [facility] [address] [place] [address], [place] [phone] * HEPATITIS B CORE ANTIBODY (08/20/2024 3:42 PM CDT) HEP B CORE TOTAL AB NON-REACTI VE NON-REACTI VE 08/20/2024 4:59 PM CDT [facility] 08/20/2024 3:42 PM CDT us Tirso Cooper MD LABORATORY Final Result Performing Organization Address City/[facility]/ZIP Co de Phone Number [facility] [address] [place] [address], [place] [phone] * (ABNORMAL) CBC, AUTO, NO DIFF (08/20/2024 3:42 PM CDT) Only the most recent of3 resultswithin the time period is included. WBC 7.79 4.5 - 11.0 x10'3/uL 08/20/2024 3:52 PM CDT [facility] RBC 2.59(L) 4.70 - 6.10 x10'6/uL 08/20/2024 3:52 PM CDT [facility] HGB 7.7(L) 14.0 - 18.0 G/DL 08/20/2024 3:52 PM CDT [facility] HCT 23.8(L) 43.0 - 54.0 % 08/20/2024 3:52 PM CDT [facility] MCV 91.9 80.0 - 94.0 FL 08/20/2024 3:52 PM CDT [facility] MCH 29.7 27.0 - 31.0 PG 08/20/2024 3:52 PM CDT [facility] MCHC 32.4 32.0 - 36.0 G/DL 08/20/2024 3:52 PM CDT [facility] RDW 16.1(H) 11.5 - 14.5 % 08/20/2024 3:52 PM CDT [facility] PLT 262 130 - 400 x10'3/uL 08/20/2024 3:52 PM CDT [facility] MPV 9.5 9.3 - 12.2 FL 08/20/2024 3:52 PM CDT [facility] 08/20/2024 3:42 PM CDT Tirso Cooper MD LABORATORY Final Result [facility] [address] [place] [address], * VITAMIN D, 25 OH (07/26/2024 12:13 PM LINK AND LINK KNITTING MACHINE OPERATOR) VITAMIN D 25 HYDROXY S/P/B 36 30 - 100 NG/ML 07/26/2024 2:07 PM LINK AND LINK KNITTING MACHINE OPERATOR [facility] Comment: INTERPRETATION DEFICIENT <20 INSUFFICIENT 20-29 SUFFICIENT 30-100 07/26/2024 12:1 3 PM LINK AND LINK KNITTING MACHINE OPERATOR Tirso Cooper MD LABORATORY Final Result Performing Organization Address [facility] Co de Phone Number [facility] [address] [place] [address], * URIC ACID BLOOD (07/26/2024 12:13 PM LINK AND LINK KNITTING MACHINE OPERATOR) URIC ACID 4.6 3.5 - 7.2 MG/DL 07/26/2024 2:16 PM LINK AND LINK KNITTING MACHINE OPERATOR [facility] 07/26/2024 12:1 3 PM LINK AND LINK KNITTING MACHINE OPERATOR us Tirso Cooper MD LABORATORY Final Result Performing Organization Address City/[facility]/ZIP Co de Phone Number [facility] [address] [place] [address], [place] [phone] * (ABNORMAL) LIPID PANEL (10/12/2022 7:06 AM CDT) CHOLESTEROL 110 <200 MG/DL 10/12/2022 8:01 AM CDT [facility] TRIGLYCERIDES 134 <150 MG/DL 10/12/2022 8:01 AM CDT [facility] HDL 35(L) >40.0 MG/DL 10/12/2022 8:01 AM CDT [facility] LDL (CALCULATED) 48 <100 MG/DL 10/13/19 8:01 AM CDT [facility] NON HDL CHOLESTEROL 75 <130 MG/DL 10/12 8:01 AM T [facility] CHOL/HDL RATIO 3.1 0.0 - 4.5 10/12/2022 8:01 AM CDT [facility] VLDL CALCULATION 27 5 - 55 MG/DL 10/12/2022 8:01 AM T [facility] LIPID INTERPRETATION 10/12/2022 8:01 AM T [facility] Comment: [facility] CONCENS[facility] REPORT RECOMMENDATIONS: ADULT CHILD LOW RISK: CHOLESTEROL <200 <170 TRIGLYCERIDE <150 --- HDL >=60 --- LDL <100 <110 BORDERLINE: CHOLESTEROL 200-239 170-199 TRIGLYCERIDE 150-199 --- HDL 40-59 --- LDL 100-159 110-129 HIGH RISK: CHOLESTEROL >=240 >=200 TRIGLYCERIDE >=200 --- HDL <40 --- LDL >=160 >=130 10/12/2022 7:06 AM CDT Josseline Tabares MD LABORATORY Final Result [facility] [address] [place] [address], [place] [phone] * HEPATITIS PANEL,ACUTE (05/30/2021 1:20 PM LINK AND LINK KNITTING MACHINE OPERATOR) HEPATITIS B SURFACE AG NON-REACTI VE NON-REACTI VE 05/30/2021 3:16 PM LINK AND LINK KNITTING MACHINE OPERATOR [facility] HEP B CORE IGM NON-REACTI VE NON-REACTI VE 05/30/2021 3:16 PM LINK AND LINK KNITTING MACHINE OPERATOR [facility] HAV IGM NON-REACTI VE NON-REACTI VE 05/30/2021 3:16 PM LINK AND LINK KNITTING MACHINE OPERATOR [facility] HEPATITIS C AB NON-REACTI VE NON-REACTI VE 05/30/2021 3:16 PM LINK AND LINK KNITTING MACHINE OPERATOR [facility] 05/30/2021 1:20 PM LINK AND LINK KNITTING MACHINE OPERATOR Tirso Cooper MD LABORATORY Final Result [facility] [address] [place] [address], from Last 3 Months or Most Recently Relevant to Health Maintenance Insurance [facility] MEDICAID AET AETNA AETNA Advance Directives * [...] 11:22 PM 06/03/2021 3:03 PM Care Teams Iuss Master Analyst Relationship Specialty Start Date End Date Chandler Geronimo DO [address] [place] [phone] PCP - General FAMILY PRACTICE 05/29/21
--- OUTSIDE RECORDS SUMMARY | 2024-09-06 18:45 | XMS_ITS | Continuity of Care Document ---
Author Organization [employer] [facility] [place] Address [address] [place] [address] Phone Care Team Providers Care Environmental Compliance Specialist Name Role Phone Chandler John DO Unavailable [...] vac INFLUENZA VACCINE, 0.5mL DOSAGE; FLUZONE OFFICE [id number]-YUK-[id number] BODY MASS INDEX DOCD SYST BP LT 130 MM HG DIAST BP < 80 MM HG BASIC METABOLIC PANEL(BMP) HEMOGLOBIN A1C HGA1C, GLYCO LIPID PANEL MICROALBUMIN, QN (URINE) CREATININE, (U-R) PSA, TOTAL URINALYSIS W MICROSCOPIC (UA) ROUTINE VENIPUNCTURE IL OFFICE [id number] Visit Complexity Inherent To E/M 2023 BODY MASS INDEX DOCD SYST BP LT 130 MM HG DIAST BP < 80 MM HG FALL RISK ASSESSMENT DOC'D PRES/ABSN URINE INCON ASSESS Pt inelig neg scrn depres Admin influenza virus vac FLU VACC 4 BINH 0.5mL DOSAGE OFFICE [id number]-[id number] BODY MASS INDEX DOCD SYST BP LT 130 MM HG DIAST BP < 80 MM HG No Show Appt Charge DSCHRG MED/CURRENT MED MERGE OFFICE [id number] BODY MASS INDEX DOCD SYST BP LT 130 MM HG DIAST BP < 80 MM HG Transitional Care- First 7 Days Of Disch arge CBC, INC PLATELETS AND DIFFERENTIAL COMPREHEN METABOLIC PANEL CMP HEMOGLOBIN A1C HGA1C, GLYCO LIPID PANEL MICROALBUMIN, QN (URINE) CREATININE, (U-R) PSA, TOTAL, SCREENING MEDICARE ONLY PARATHYROID HORMONE (PTH) VITAMIN D, 25-HYDROXY ROUTINE VENIPUNCTURE IL OFFICE [id number]-ATN-[id number] BODY MASS INDEX DOCD SYST BP GE 130 - 139MM HG DIAST BP < 80 MM HG OFFICE OCTDY-GYQ-BBQGBINU BODY MASS INDEX DOCD SYST BP GE 130 - 139MM HG DIAST BP < 80 MM HG Pt inelig neg scrn depres FALL RISK ASSESSMENT DOC'D PRES/ABSN URINE INCON ASSESS OFFICE [id number]-QNL-[id number] BODY MASS INDEX DOCD SYST BP LT 130 MM HG DIAST BP < 80 MM HG HEMOGLOBIN A1C HGA1C, GLYCO URINALYSIS, REFLEX (UA) ROUTINE VENIPUNCTURE OFFICE [id number]-[id number] BODY MASS INDEX DOCD SYST BP LT [...] DIAST BP < 80 MM HG OFFICE [id number]-PDI-OTLVRKKA COMPREHEN METABOLIC PANEL CMP HEMOGLOBIN A1C HGA1C, GLYCO LIPID PANEL ROUTINE VENIPUNCTURE Admin influenza virus vac FLU VACC 4 BINH 0.5mL DOSAGE OFFICE YUZKC-FRS-OPGEQIDA BODY MASS INDEX DOCD SYST BP GE 130 - 139MM HG DIAST BP < 80 MM HG FALL RISK ASSESSMENT DOC'D PRES/ABSN URINE INCON ASSESS Pt inelig neg scrn depres CBC, INC PLATELETS AND DIFFERENTIAL COMPREHEN METABOLIC PANEL CMP LIPID PANEL PSA, TOTAL, SCREENING MEDICARE ONLY ROUTINE VENIPUNCTURE OFFICE [id number]-GKC-[id number] BODY MASS INDEX DOCD SYST BP GE 130 - 139MM HG DIAST BP < 80 MM HG HEMOGLOBIN A1C HGA1C, GLYCO CBC, INC PLATELETS AND DIFFERENTIAL COMPREHEN METABOLIC PANEL CMP 9 HEMOGLOBIN A1C HGA1C, GLYCO LIPID PANEL ROUTINE VENIPUNCTURE OFFICE [id number] BODY MASS INDEX DOCD SYST BP LT [...] Date Provider Providers Copied on Encounter [facility], [address], [place], [place], [address] , [place] tel:[phone] [facility] No Information 5 CarlaaleshaShailesh Durantrick. [address] [place] [address], [id number], [place]. tel:[phone] [facility], [address], [place], [place], [address] , [place] tel: [phone] [facility] No Information 5 CarlaaleshaShailesh Durantrick. [address] [place] [address], [id number], [place]. tel:[phone] Referring Provider: Chandler castro, [address] [place] [address], [address] . tel:[phone] [facility], [address], [place], [place], [address] , tel: [phone] [facility] No Information 5 BrauliozebShailesh Arteaga. [address] [place] [address], [id number], [place]. tel:[phone] [facility], [address], [place], [place], [address] , [place] tel: [phone] [facility] No Information 5 BrauliozebShailesh Arteaga. [address] [place] [address], [id number], [place]. tel:[phone] Transitional Care- First 7 Days Of Discharge [facility], [address], [place], [place], [address] , [place] tel: [phone] [facility] Hospital Follow-Up (chief complaint)Oth er (chief complaint)Chr onic Conditions (chief complaint) Chronic kidney disease, stage 5HTN w/ chronic kidney disease stage 5Renal osteodystrop hyAnemia in other chronic diseases classified elsewhereTyp e 2 diabetes mellitus with other diabetic kidney complication Mixed hyperlipidem iaAtheroscle rosis of aortaBody mass index [BMI] 24.0-24.9, adultChronic diastolic (congestive) heart failure 5 Faustino Arteaga. [address] [place] [address], [id number], [place]. tel:[phone] Referring Provider: Chandler castro, [address] [place] [address], [place], [address] . tel:[phone] OFFICE DWGTW-LLI-AWE MAXINE [facility], [address], [place], [place], [address] , [place] tel: [phone] [facility] 6 month F/U (chief complaint)Chr onic [...] complication Encounter for immunization 4 Faustino Arteaga. [address] [place] [address], [id number], [place]. tel:[phone] Referring Provider: Chandler castro, [address] [place] [address], [address] . tel:[phone] [facility], [address], [place], [place], [address] , [place] tel: [phone] [facility] No Information 4 Faustino Arteaga. [address] [place] [address], [id number], [place]. tel:[phone] [facility], [address], [place], [place], [address] , [place] tel:[phone] [facility] No Information 4 Fozia Wiley. [address] [facility], [place] [address], [place], [place], [address], [place]. tel:[phone] Referring Provider: Chandler castro, [place], [address] . tel:[phone] OFFICE CKRBK-KLA-WJW [facility], [address], [place], [place], [address] , tel: [phone] [facility] 6 month F/U (chief complaint)Chr onic [...] screening for malignant neoplasm of colon 4 Faustion Arteaga. [facility] [place], [address], [place]. tel:[phone] Referring Provider: Chandler castro, Padma [facility], [place], [address] . tel:[phone] OFFICE PFMJE-EMU-ALZ [facility], [address], [place], [place], [address] , tel: [phone] [facility] 6 mo f/u (chief complaint)Chr onic [...] er for immunization 3 Faustino Arteaga. [place], [address], [place]. tel:[phone] Referring Provider: Padma Kumar, [place], [address] . tel:[phone] [facility], [address], [place], [place], [address] , [place] tel: [phone] [facility] No Information 3 CarlaaleshaShailesh stone Arteaga. [address] [place] [address], [id number], [place]. tel:[phone] Referring Provider: Chandler castro, [address] [place] [address], [address] . tel:[phone] [facility], [address], [place], [place], [address] , [place] tel: [phone] [facility] Hyperkalemia 3 Nelly [facility]. [address] [place] [address], [address], [place]. tel:[phone] OFFICE OHTPM-LAL-SEY P [facility], [address], [place], [place], [address] , [place] tel: [phone] [facility] [place] Hospital Follow-Up (chief complaint)Chr onic Conditions (chief [...] heumatic mitral valve regurgitatio n 3 Nelly [facility]. [address] [place] [address], [address], [place]. tel:[phone] Referring Provider: Chandler castro, [address] [place] [address], [place], [address] . tel:[phone] [facility], [address], [place], [place], [address] , tel: [phone] [facility] No Information 3 Fozia Saurabh. [address], [id number], . tel:[phone] Referring Provider: Chandler castro, [address] [place] [address], [address] . tel:[phone] OFFICE HXRQB-ZYC-IOI [facility], [address], [place], [place], [address] , [place] tel: [phone] [facility] Patient encounter (chief complaint)oth er (chief complaint)Chr onic Conditions (chief complaint) ANCA associated vasculitisCh ronic kidney disease, stage 4 (severe)Ilene l osteodystrop hyAnemia in other chronic diseases classified elsewhereTyp e 2 diabetes mellitus with other diabetic kidney complication Mixed hyperlipidem iaAtheroscle rosis of aortaEncnorthridge hospital [facility] er for screening for malignant neoplasm of prostateBody mass index [BMI] 28.0-28.9, adultHyperte nsive chronic kidney disease with stage 1 through stage 4 chronic kidney disease, or unspecified chronic kidney disease 3 Faustino Arteaga. [address] [place] [address], [id number], [place]. tel:[phone] Referring Provider: Chandler castro, [address] [place] [address], [address] . tel:[phone] OFFICE RCJOE-JDI-GUG [facility], [address], [place], [place], [address] , [place] tel: [phone] [facility] Patient encounter (chief complaint)oth er (chief complaint)Chr onic Conditions (chief complaint) Body mass index [BMI] 28.0-28.9, adultChronic kidney disease, stage 4 (severe)Ilene l osteodystrop hyType 2 diabetes mellitus with other diabetic kidney complication Encounter for screening for malignant neoplasm of prostate 2 Faustino Arteaga. [address] [place] [address], [id number], [place]. tel:[phone] Referring Provider: Chandler castro, [address] [place] [address], [address] . tel:[phone] OFFICE UBLWZ-QOU-FDR [facility], [address], [place], [place], [address] , tel: [phone] [facility] other (chief complaint)Chr onic Conditions (chief complaint) Body mass index [BMI] 27.0-27.9, adultNephrit ic syndrome w/ diffuse crescentic glomerulonep hritisChroni c kidney disease, stage 5Long term (current) use of insulinType 2 diabetes mellitus w/ diabetic kidney complication Immunosuppre ssionMixed hyperlipidem ia Oct- 2 Faustino Arteaga. [address] [place] [address], [id number], . tel:[phone] Referring Provider: Chandler castro, [address] [place] [address], [address] . tel:[phone] [facility], [address], [place], [place], [address] , tel:[phone] [facility] No Information 2 Faustino Arteaga. [address] [place] [address], [id number], . tel:[phone] OFFICE BWVRJ-KKQ-WHJ [facility], [address], [place], [place], [address] , tel: [phone] [facility] Crescentic glomeruloneph ritis (chief complaint)His tory of COVID-19 (chief complaint)Hyp ertensive renal disease (chief complaint)Oth er (chief complaint)Chr onic Conditions (chief complaint) Body mass index [BMI] 27.0-27.9, adultType 2 diabetes mellitus w/ diabetic kidney complication director of customer service (current) use of insulinChron ic kidney disease, stage 5Weight lossHistory of hematuriaRen al osteodystrop hyNephritic syndrome w/ diffuse crescentic glomerulonep hritisAthero sclerosis of aorta 2 Faustino Arteaga. [address] [place] [address], [place], [place], [address], [place]. tel:[phone] Referring Provider: Chandler castro, [address] [place] [address], [place], [address] . tel:[phone] Transitional Care- First 7 Days Of Discharge [facility], [address], [place], [place], [address] , [place] tel: [phone] [facility] Follow-Up (chief complaint)oth er (chief complaint)Chr onic Conditions (chief complaint) Body mass index [BMI] 30.0-30.9, adultAKI (acute kidney injury)Hyper tensive renal diseaseType 2 diabetes mellitus w/ diabetic kidney complication Crescentic glomerulonep hritisImmuno suppressionH istory of COVID-19Chro emmett obstructive pulmonary disease, unspecified COPD type 2 Faustino Arteaga. [address] [place] [address], [place], [place], [address], [place]. tel:[phone] Referring Provider: Chandler castro, [address] [place] [address], [place], [address] . tel:[phone] [facility], [address], [place], [place], [address] , [place] tel: [phone] [facility] Exposure to COVID-19 virus 2 Faustino Arteaga. [address] [place] [address], [place], [place], [address], [place]. tel:[phone] Referring Provider: Chandler castro, [address] [place] [address], [place], [address] . tel:[phone] Transitional Care- First 7 Days Of Discharge [facility], [address], [place], [place], [address] , [place] tel: [phone] [facility] Follow-Up (chief complaint)Chr onic Conditions (chief complaint) Type 2 diabetes mellitus w/ diabetic kidney complication LEANDRO (acute kidney injury)Hyper tensive renal diseaseBody mass index [BMI] 28.0-28.9, adultAtheros clerosis of aortaAtheros clerotic heart disease of [place] coronary artery without angina pectorisMass of lingula of lungHemoptys isHematuria, unspecified type 2 Faustino Arteaga. [address] [facility], [place], [place], [address], [place]. tel:[phone] Referring Provider: Chandler castro, [address] [place] [address], [place], [address] . tel:[phone] OFFICE WFALY-HIG-MEW [facility], [address], [place], [place], [address] , tel: [phone] [facility] Follow-Up (chief complaint)Tel ehealth (chief complaint)Chr onic Conditions (chief complaint) Mixed hyperlipidem iaType 2 diabetes mellitus w/ diabetic kidney complication Gastroesopha geal reflux disease without esophagitisA KI (acute kidney injury) 1 Faustino Arteaga. [facility], [place], [place], [address], [place]. [phone] Referring Provider: Chandler castro, [address] [place] [address], [place], [address] . tel:[phone] OFFICE JJUPX-POU-YVV [facility], [address], [place], [place], [address] , [place] tel: [phone] [facility] acute visit (chief complaint)Chr onic Conditions (chief complaint) Body mass index [BMI] 32.0-32.9, adultPrediab etesAtherosc lerosis of aortaBalanit isEncounter for immunization 1 Faustino Arteaga. [address] [facility], [place], [place], [address], [place]. tel:[phone] Referring Provider: Chandler castro, [address] [place] [address], [address] . 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 [address] [place] [address], [id number], . tel:[phone] Referring Provider: Chandler castro, [address] [place] [address], [address] . tel:[phone] [facility], [address], [place], [place], [address] , [place] [phone] [facility] No Information 1 Faustino Arteaga. [address] [place] [address], [id number], . tel:[phone] [facility], [address], [place], [place], [address] , [place] tel:[phone] [facility] IM Prediabetes 0 Yolis Soria. [address] [facility], [address], [place], [place], [address], [place]. tel:[phone] OFFICE SMDSK-EZC-PHC ANDED [facility], [address], [place], [place], [address] , [place] tel: [phone] Jer IM Chronic Conditions (chief complaint)12 month follow up (chief complaint) Atherosclero sis of aortaChronic obstructive pulmonary disease, unspecifiedA bnormal finding on diagnostic imaging of liver 9 Yolis Soria. [address], [place], [place], [address], [place]. tel:[phone] Referring Provider: Yang Lagos, [address], [place], [address] . tel:[phone] [facility], [address], [place], [place], [address] , [place] tel: [phone] Jer IM Liver mass 9 Yolis Soria. [address], [place], [place], [address], [place]. tel:[phone] [facility], [address], [place], [place], [address] , [place] tel: [phone] Jer IM Epigastric pain 9 Yolis Soria. [address], [place], [place], [address], [place]. tel:[phone] Referring Provider: Yang Lagos, [address], [place], [address] . tel:[phone] [facility], [address], [place], [address] , [place] tel: [phone] Jer IM Atherosclero sis of aortaChronic obstructive pulmonary disease, unspecifiedP rediabetesBe nign neoplasm of colon, unspecified 8 Yolis Soria. [address], [place], [place], [address], [place]. tel:[phone] Referring Provider: Yang Lagos, [address], [place], [address] . tel:[phone] [facility], [address], [place], [place], [address] , [place] tel: [phone] Jer IM Ingrown toenail 7 Yolis Soria. [address], [place], [place], [address], [place]. tel:[phone] [facility], [address], [place], [place], [address] , tel: [phone] [facility] Ingrown toenail Yolis Soria. [address] [employer] [address], [place], [address], [place]. tel:[phone] Referring Provider: Yang Lagos, [address] [employer] [address], [place], [address] . tel:[phone] [facility], [address], [place], [place], [address] , tel: [phone] Jer IM Chronic obstructive pulmonary disease, unspecified COPD typeTubular adenoma Yolis Soria. [address] [employer] [address], [place], [address], [place]. tel:[phone] Referring Provider: Yang Lagos, [address] [employer] [address], [place], [address] . tel:[phone] [facility], [address], [place], [address] , tel: [phone] [facility] Abnormal levels of other serum enzymes Yolis Soria. [address] [employer] [address], [place], [address], [place]. tel:[phone] Referring Provider: Yang Lagos, [address] [employer] [address], [place], [address] . tel:[phone] [facility], [address], [place], [place], [address] , tel: [phone] [facility] Tubular adenomaChron ic obstructive pulmonary disease, unspecified COPD type Sep 6 Yolis Soria. [address] [employer] [address], [place], [address], [place]. tel:[phone] Referring Provider: Yang Lagos, [address] [employer] [address], [place], [address] . tel:[phone] [facility], [address], [place], [place], [address] , [place] tel: [phone] Jer IM Tubular adenoma 6 Yolis Soria. [address] [facility], [address], [place], [place], [address], [place]. tel:[phone] [facility], [address], [place], [place], [address] , [place] tel: [phone] Jer IM Shortness of breathNon morbid obesity, unspecified obesity typeMidline low back pain without sciaticaChro emmett obstructive pulmonary disease, unspecified COPD typePrediabe tesPrediabet es 6 Yolis Soria. [address] [facility], [address], [place], [place], [address], [place]. [phone] Referring Provider: Yang Lagos, [address] [facility] [address], [place], [address] . tel:[phone] Family History Family Member Type Diagnosis Age [...] administered 21 days apart administered Source: Other [facility] luca Fluzone Quad, split virus, 0.5mL dosage [...] Record Payers Payer name Insurance type Covered green party ID Kaylin morgan(s) [employer] [id number] [employer] [place] [id number] [employer] [place] [id number] [employer] [place] [id number] [employer] [place] [id number] [employer] [place] [id number] Social History Type Description Quantity Date Captured [...] [address] [place], [id number] Ordered: Referrals: Gastroenterology. Peggy Beaver. Evaluation/diagnostic/treatment - Level 3 Appointment date/timeframe: 01/08/2023 ordered Referral Referred To: Dr. Ernst Good Ordered: Referrals: Cardiology. Dr. Ernst Good. Evaluation/diagnostic/treatment - Level 3 ordered Referral Referred To: Dr. Trujillo Ordered: Referrals: Urology. Dr. Trujillo. Evaluation/diagnostic/treatment - Level 3 Appointment date/timeframe: 10/08/2021 ordered Referral Referred To: David Hamilton [address], [place], [phone] Ordered: Referrals: Nephrology. David Hamilton. Evaluation/diagnostic/treatment - Level 3 ordered Referral Referred To: [address] [place], [place], [id number] Ordered: CT chest without contrast ordered Referral Referred To: Watson Corral OD [address], [place], [phone] Ordered: Referrals: Games Dealer. Watson Corral OD. Evaluation/diagnostic/treatment - Level 3 [...] daughter for hospital follow-up.Patient was seen at [facility] from 05/27 to 06/05.Patient went to [...] ASUM 04/14 Chronic Conditions *See Chronic Conditions [facility] Hospital Follow-Up The patient w as seen today for a hospital follow-up visit, after being discharged on 10/12/2022. Details regarding this most recent admission include: Patient presents today for hospital follow-up. He is accompanied by his son, Harshil. He primarily speaks Upper Sorbian. He presented to [facility] on October 10 under the advisement of his swimming pool installer and servicer. He has a history of hypertension, diabetes, ANCA vasculitis, anemia, stage V CKD and hyperlipidemia.He had been reporting increased weakness and fatigue for the past 2 weeks prior to admission and chest pain and increased work of breathing while cutting grass before admission.He had been getting erythropoietin outpatient through swimming pool installer and servicer Dr. Hamilton. Upon admission his hemoglobin was [...] Deltasone 5mgDc Home on 10.12.2022.Recommend appointment with swimming pool installer and servicer Dr. Hamilton in 1 week- no appt yet.Corn Grinder Dr. Good in 1 monthSt[facility] infusion [...] HPI Crescentic glomerulonephritis La st OV with Legal Transcriber, Dr. Hamilton 07/16/21Labs drawn last week ordered [...] how much. other Infusion schedul ed at [facility], has a port.Does not have future [...] for worsening renal functionpt was in [facility] from 05/11-05/14 for abdominal pain and LEANDRO, on d/c Cr was at 3.2he had repeat labs on 05/24 with Cr up to 4.78, these were ordered and performed at [place] and I was unable to obtain them until 05/29, pt and family were unsure who ordered and had not been contacted about them before. pt was having worsening abd pain and I recommended ED, family took him to [facility] he went to the ED on 05/29, [...] acted as translators as patient is primarily serbian speakingPt has several children, including Harshil, Radha and Mony and Louis brought patient and recommended that we discuss scheduling with [facility] Follow-Up The patient w as seen today for a hospital follow-up visit, after being discharged on 05/14/2021. Details regarding this most recent admission include: [facility] follow upmajority of history and [...] Telehealth This visit was c ompleted via [facility] Telehealth visit with real time audio [...] to penis, went to Urgent Care in [place] 03/27/21Prescribed clotrimazole 1% cream to be applied [...] the high dose flu vaccine.pt speaks little Slovenian, son Harshil translating COPD Additional infor lina: Occasional shortness of breath.Cough with prolonged speaking.Quit smoke 9 years ago. Atherosclerosis of aorta Denies chest pain, swelling in lower extremitiesArthritis in hands.Would take Aleve or Tylenol prn.no swelling or injury other [facility]line 09/13, 10/04 [facility] Shingrix.Denies urinary issues or bowel issues.occasional nocturia 2-3 times a nightno pain or hematuriaWould like to know when he should have his prostate checked and next colon screening. 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 Related to Anemia in other chronic diseases [...] would like you to follow-up with a commercial property administrator at [facility]. I will help facilitate this. The [...] October 24 at the infusion center at [facility].We will also start the process of [...] the next time you go to the swimming pool installer and servicer office to get labs Related to Type [...] continu e prednisone and follow-up with your swimming pool installer and servicer as scheduled.Follow-up in 3 months, sooner if [...] 0 units at this time Related to director of customer service (current) use of insulin Giving encouragement to [...] will refer you to Dr. Trujillo at [facility] for evaluation Related to Hematuria, unspecified type [...] identified. Related to Atherosclerotic heart disease of [place] coronary artery without angina pectoris At this [...] a CT scan of the chest at [facility] Related to Hemoptysis Giving encouragement to exercise [...]
[2024-09-06 19:34] LABS: MRSA (PCR) NOT DETECTED (NOT DETECTE)
[2024-09-06] MEDS: SODIUM CHLORIDE 0.9% IV 250 ML 30 ML IV CONT (20:14)
[2024-09-06] MEDS: ATORVASTATIN 40 MG TABLET 80 MG PO (21:24)
[2024-09-06 21:28] LABS: Troponin I < 0.012 ng/mL (0.000-0.034)
[2024-09-06] MEDS: MORPHINE SULFATE (*CRX) 2 MG/ML INJ IV PUSH (23:20)
[2024-09-07] VITALS (23 sets, daily range): BP systolic 111–145; BP diastolic 40–56; PULSE 72–79; RESP 16–20; TEMP 35.3–37; O2SAT 93–97
[2024-09-07] MEDS: ACETAMINOPHEN 325 MG TABLET 650 MG PO (04:43)
[2024-09-07] MEDS: MORPHINE SULFATE (*CRX) 2 MG/ML INJ IV PUSH ×3 (04:44→17:05)
[2024-09-07 05:22] LABS: Basophils Percent Auto 0.3 % (0.2-1.2); Eosinophils Percent Auto 0.3 % (0-4.4); Hematocrit 25.5 % (42.0-52.0); Hemoglobin 7.9 g/dL (14.0-18.0); Immature Granulocyte Absolute 0.11 K/mm3 (0.00-0.031); Immature Granulocyte Percent A 0.9 % (0-0.5); Lymphocytes Absolute Auto 0.65 K/mm3 (0.9-3.2); Lymphocytes Percent Auto 5.5 % (18.3-44.2); Mean Corpuscular Hemoglobin 29.8 pg (26-34); Mean Corpuscular Volume 96.2 fl (80-100); Monocytes Absolute Auto 0.8 K/mm3 (0.1-0.6); Monocytes Percent Auto 6.3 % (2.6-8.5); Neutrophils Absolute Auto 10.3 K/mm3 (1.3-6.7); Neutrophils Percent Auto 86.7 % (45.5-73.1); Platelet Count Result 282 k/mm3 (150-375); Red Blood Count 2.65 M/mm3 (4.6-6.20); White Blood Count 11.9 K/mm3 (4.5-10.0)
[2024-09-07 05:50] LABS: Troponin I 0.015 ng/mL (0.000-0.034)
[2024-09-07 05:55] LABS: Alanine Aminotransferase 41 U/L (6-50); Albumin Level 3.3 g/dL (3.5-5.1); Alkaline Phosphatase 164 U/L (38-126); Anion Gap 17 mmol/L (4-12); Aspartate Amino Transferase 27 U/L (17-59); Bilirubin,Total 0.9 mg/dL (0.2-1.3); Blood Urea Nitrogen 118 mg/dL (9-20); Calcium 8.5 mg/dL (8.4-10.2); Carbon Dioxide 23 mmol/L (22-30); Chloride 93 mmol/L (98-107); Estimated CRCL calculation 9 ml/min; Estimated Glomerular Filt Rate 8; Glucose 108 mg/dL (65-110); Magnesium 2.2 mg/dL (1.6-2.3); Potassium 4.3 mmol/L (3.4-5.0); Sodium 133 mmol/L (137-145)
--- NOTE | 2024-09-07 07:48 | P.PNIM_ITS ---
Progress Note: A&P Assessment and Plan (1) Chest pain: Code(s): R07.9 - Chest pain, unspecified Status: Acute (2) Anemia: Qualifiers: Anemia type: unspecified type Qualified Code(s): D64.9 - Anemia, unspecified Code(s): D64.9 - Anemia, unspecified Status: Acute (3) ESRD on dialysis: Code(s): N18.6 - End stage renal disease; Z99.2 - Dependence on renal dialysis Status: Acute Plan Chest pain patient had point tenderness however cardiology noted due patient being high risk will undergo ischemic eval ECG no acute changes ECHO shows ejection fraction 55-60%, A1c, Lipid panel pending, troponin am Aspirin 81mg and Lipitor 80mg daily cardiology following, and noted no Heparin infusion for now due to anemia Large left-sided pleural effusion Thoracentesis Ordered fluid analysis Possible pneumonia Chest pain with Possible pneumonia on CXR Also leukocytosis Blood and sputum cultures pending CT chest ordered Anemia Hb 7.2 patient was recently managed for pneumonia at [facility] Reviewed Iron panel which shows an deficiency anemia Reconciliation of home medication is pending Eliquis 5 mg p.o. b.i.d. on hold monitor H and H ESRD with azotemia BUN 105, and cr 5.64 Nephrology consulted DVT prophylaxis on SCDs, no anticoagulation pending GI bleed rule out with FOBT Full code Subjective Date/time seen: 09/07/24 07:48 Interval history: Patient is currently doing well except for left side pain which is probably muscular. No further workup from cardiac. CTA shows a large left-sided pleural effusion. Will order thoracentesis. In regard to chest pain no further evaluation from Cardiology. Patient has no significant past medical history other than chronic kidney disease for which he received a fistula June 2024 and started dialysis last month. Home medications shows amiodarone and Eliquis 5 mg b.i.d. but for patient family unable to conform the history of AFib Review of Systems Review of Systems: Other systems reviewed and negative except noted in history above. Exam Narrative: General: alert and comfortable Eyes: EOMI, PERRLA ENNT External ears normal, Neck is supple, no masses, Respiratory systems: Clear to auscultation Cardiovascular S1, S2, normal rhythm, no murmur, rub, or gallop; no thrill or palpable murmurs on palpation. Gastrointestinal: soft, non-tender, and non-distended abdomen with no masses; BS present Skin: no rash, lesions, ulcerations, subcutaneous nodules or induration Musculoskeletal: no abnormality and no tenderness, normal ROM Neurologic: Alert and oriented x3, non focal Mental Status Exam: normal affect Objective Data Vital Signs Vital Signs: Vital Signs - 24 hr 09/06/24 13:48 09/06/24 13:55 09/06/24 13:59 Temperature 97.5 F L Pulse Rate 59 L 59 L Respiratory Rate 16 26 H Blood Pressure 95/35 L 111/43 L Pulse Oximetry 98 96 100 Oxygen Delivery Room Air Room Air 09/06/24 16:45 09/06/24 17:44 09/06/24 17:53 Temperature 97.6 F Pulse Rate 55 L 62 64 Respiratory Rate 17 18 Blood Pressure 144/50 H 107/34 L Pulse Oximetry 98 99 Oxygen Delivery 09/06/24 18:00 09/06/24 19:50 09/06/24 19:53 Temperature 97.7 F 97.9 F Pulse Rate 65 66 67 Respiratory Rate 18 16 Blood Pressure 120/38 L 128/78 Pulse Oximetry 98 95 Oxygen Delivery 09/06/24 20:00 09/06/24 20:08 09/06/24 21:08 Temperature 97.4 F L 97.7 F Pulse Rate 67 67 68 Respiratory Rate 16 16 Blood Pressure 115/36 L 119/42 L Pulse Oximetry 100 96 Oxygen Delivery 09/06/24 22:08 09/06/24 23:19 09/06/24 23:44 Temperature 98.1 F 98.2 F Pulse Rate 70 73 73 Respiratory Rate 16 16 Blood Pressure 128/53 L 123/42 L Pulse Oximetry 99 100 Oxygen Delivery 09/06/24 23:45 09/06/24 23:47 09/07/24 04:00 Temperature 97.9 F 97.8 F Pulse Rate 73 73 79 Respiratory Rate 16 18 18 Blood Pressure 123/42 L 119/41 L Pulse Oximetry 100 98 95 Oxygen Delivery Room Air 09/07/24 04:00 09/07/24 04:00 09/07/24 06:22 Temperature Pulse Rate 76 76 76 Respiratory Rate 18 Blood Pressure Pulse Oximetry 95 Oxygen Delivery Room Air Intake/Output Intake/Output: Intake & Output 04/05/25 09/05/24 09/06/24 09/07/24 23:59 23:59 23:59 23:59 Intake Total 500 250 Balance 500 250 Meds/Results Medications: Active Medications Generic Name Dose Route Start Last Admin Trade Name Freq PRN Reason Stop Dose Admin Acetaminophen 650 mg 09/06/24 15:40 09/07/24 04:43 Acetaminophen 325 Mg Tablet PO 650 mg Q4H PRN Administration Mild Pain (1-3) or Fever Aspirin 81 mg 09/07/24 09:00 Aspirin 81 Mg Enteric Tablet PO QAM NICOLE Atorvastatin Calcium 80 mg 09/06/24 18:00 09/06/24 21:24 Atorvastatin 40 Mg Tablet PO 80 mg EVENING NICOLE Administration Epoetin Elliot-epbx 10,000 units 09/07/24 18:53 Epoetin Elliot-Epbx 10,000 Units/Ml Vial IV PUSH 09/07/24 18:54 ONCE ONE Levofloxacin/Dextrose 500 mg in 100 mls @ 100 mls/hr 09/08/24 16:00 Levaquin 500 Mg/D5w 100 Ml IVPB Q48H NICOLE Albumin Human 50 mls @ 999 mls/hr 09/07/24 06:52 Albutein IVPB 10/07/24 06:51 Q10M PRN HYPOTENSION Sodium Chloride 1,000 mls @ 999 mls/hr 09/07/24 06:52 Normal Saline Iv IV CONT 09/07/24 07:52 .Q1H1M ONE Morphine Sulfate 2 mg 09/06/24 15:40 09/07/24 04:44 Morphine Sulfate (*Crx) 2 Mg/Ml Inj IV PUSH 2 mg Q2H PRN Administration Pain Rated 7-10 Ondansetron HCl 4 mg 09/06/24 15:40 Ondansetron Inj 4 Mg/2 Ml Vial IV PUSH Q4H PRN Nausea Perflutren Lipid Microsphere 0 ml 09/06/24 15:28 Perflutren Lipid Microspheres 1.5 Ml Vial Diluted To 10 Ml Total Volume IV PUSH 09/09/24 15:28 ONCE PRN adequate visualization Protocol Radiology Results: ITS Impressions Chest X-Ray 09/06/24 14:38 IMPRESSION: Left basilar atelectasis versus pneumonia. Chest CTA 09/06/24 17:14 IMPRESSION: No pulmonary embolus. No thoracic aortic dissection. Large left-sided pleural effusion with adjacent compressive atelectasis. Labs Labs: Laboratory Results - last 24 hr 09/06/24 09/06/24 09/06/24 14:13 15:56 17:38 WBC 13.2 H RBC 2.36 L Hgb 7.2 L Hct 23.2 L MCV 98.3 MCH 30.5 MCHC 31.0 L RDW 17.3 H Plt Count 292 MPV 9.4 Immature Gran % (Auto) 0.9 H Neut % (Auto) 93.6 H Lymph % (Auto) 1.6 L [place] % (Auto) 3.6 Eos % (Auto) 0.1 Baso % (Auto) 0.2 Lymph # (Auto) 0.21 L [place] # (Auto) 0.5 Eos # (Auto) 0.0 Baso # (Auto) 0.0 Abs Immat Gran (auto) 0.12 H Absolute Neuts (auto) 12.3 H Absolute Nucleated RBC 0.000 Band Neutrophils % 0 Nucleated RBC % 0.0 Platelet Estimate Adequate Clumped Platelets Present Hypochromasia 1+ Anisocytosis 2+ Schistocytes None seen PT 20.4 H INR 1.7 APTT 37.9 H Sodium 131 L Potassium 3.6 Chloride 91 L Carbon Dioxide 26 Anion Gap 14 H BUN 105 H Creatinine 5.64 H Estim Creat Clear Calc 10 Estimated GFR 10 L Glucose 167 H Calcium 8.8 Magnesium Iron 24 L TIBC 212 L % Saturation 11 L Ferritin 1090.00 H Total Bilirubin 0.8 AST 29 ALT 39 Alkaline Phosphatase 169 H Troponin I < 0.012 < 0.012 Total Protein 6.0 L Albumin 3.4 L Lipase 64 Nasal MRSA (PCR) Blood Type O Positive Antibody Screen Negative Crossmatch See Detail 09/06/24 09/06/24 09/07/24 18:09 20:49 05:10 WBC 11.9 H RBC 2.65 L Hgb 7.9 L Hct 25.5 L MCV 96.2 MCH 29.8 MCHC 31.0 L RDW 18.0 H Plt Count 282 MPV 9.0 Immature Gran % (Auto) 0.9 H Neut % (Auto) 86.7 H Lymph % (Auto) 5.5 L [place] % (Auto) 6.3 Eos % (Auto) 0.3 Baso % (Auto) 0.3 Lymph # (Auto) 0.65 L [place] # (Auto) 0.8 H Eos # (Auto) 0.0 Baso # (Auto) 0.0 Abs Immat Gran (auto) 0.11 H Absolute Neuts (auto) 10.3 H Absolute Nucleated RBC 0.000 Band Neutrophils % Nucleated RBC % 0.0 Platelet Estimate Clumped Platelets Hypochromasia Anisocytosis Schistocytes PT INR APTT Sodium 133 L Potassium 4.3 Chloride 93 L Carbon Dioxide 23 Anion Gap 17 H BUN 118 H D Creatinine 6.48 H Estim Creat Clear Calc 9 Estimated GFR 8 L Glucose 108 Calcium 8.5 Magnesium 2.2 Iron TIBC % Saturation Ferritin Total Bilirubin 0.9 AST 27 ALT 41 Alkaline Phosphatase 164 H Troponin I < 0.012 0.015 Total Protein 6.0 L Albumin 3.3 L Lipase Nasal MRSA (PCR) Not detected Blood Type Antibody Screen Crossmatch Hospitalist MIPS Advance Care Plan I have confirmed that the patient's Advanced Care Plan is present, code status is documented, or surrogate decision maker is listed in patient medical record.: Yes Medication Reconciliation I have utilized all available resources to obtain, update and review the patients current medications (includes all prescriptions, OTC, herbals, cannabis, and nutritional supplements).: Yes
[2024-09-07] MEDS: EPOETIN ALFA-EPBX 10,000 UNITS/ML VIAL 10000 UNITS IV PUSH (09:26)
[2024-09-07] MEDS: SODIUM CHLORIDE 0.9% IV 1,000 ML 999 ML IV CONT (09:27)
[2024-09-07 10:06] LABS: Hepatitis B Surface Antigen Negative (Negative)
[2024-09-07 10:24] LABS: Hepatitis B Surface Anti Res Negative
--- NOTE | 2024-09-07 11:09 | P.CONNP_ITS ---
History of Present Illness Reason for Consult Consult date: 09/07/24 Reason for consult: end stage renal disease Chief Complaint Chief complaint: chest pain Review of Systems 2 Review of Systems: As per HPI. [facility] Past Medical History Medical History (Updated 09/06/24 @ 18:55 by Jackelin Menjivar PA-C) History of end stage renal disease Family History Family History (Updated 09/06/24 @ 18:37 by Jackelin Franco, ZACHARY) Father Myocardial infarct Sibling Myocardial infarct Mother Dementia Social History Social History Smoking status: Former smoker Additional smoking assessment comments: quit many years ago Alcohol intake: never Substance use: never Do You Feel Safe in your Home?: Yes Lack of Transportation: No Lack of Food: Never True Current Housing: I Have Housing Concerned About Future Housing: No Difficulty Paying Gas/Electric Bills: No Difficulty Paying for Meds: No Currently Unemployed: No Education: High School Diploma/GED Difficulty w/ Childcare or Family Care: No Spiritual care concerns: No Meds Home Medications and Allergies Home Medications ?Medication ?Instructions ?Recorded ?Confirmed ?Type allopurinol 100 mg tablet See Rx Instructions .Route .COMPLEX 09/06/24 09/06/24 History amiodarone 400 mg tablet 200 mg PO DAILY 09/06/24 09/06/24 History apixaban 5 mg tablet (Eliquis) 5 mg PO Q12H 09/06/24 09/06/24 History atorvastatin 20 mg tablet (Lipitor) 20 mg PO DAILY 09/06/24 09/06/24 History calcitriol 0.25 mcg capsule 0.25 mcg PO BID 09/06/24 09/06/24 History doxazosin 4 mg tablet (Cardura) 4 mg PO QPM 09/06/24 09/06/24 History ferrous sulfate 325 mg (65 mg 325 mg PO DAILY 09/06/24 09/06/24 History iron) tablet (iron) furosemide 40 mg tablet 60 mg PO BID 09/06/24 09/06/24 History metoprolol tartrate 25 mg tablet 25 mg PO DAILY 09/06/24 09/06/24 History pantoprazole 40 mg tablet,delayed 40 mg PO QAM 09/06/24 09/06/24 History release (Protonix) sodium bicarbonate 650 mg tablet 650 mg PO DAILY 09/06/24 09/06/24 History vitamin B complex-vitamin C-folic 1 tablet PO DAILY 09/06/24 09/06/24 History acid 800 mcg chewable tablet (Dialyvite 800) Allergies Allergy/AdvReac Type Severity Reaction Status Date / Time No Known Allergies Allergy Unverified 09/06/24 13:40 Vital Signs Vital Signs Temp Pulse Resp BP Pulse Ox O2 Del Method 09/07/24 11:00 73 125/50 L 09/07/24 10:45 73 117/48 L 09/07/24 10:30 72 121/48 L 09/07/24 10:15 72 126/48 L 09/07/24 10:00 76 09/07/24 10:00 73 124/48 L 09/07/24 09:45 73 121/45 L 09/07/24 09:30 74 122/44 L 09/07/24 09:15 74 116/43 L 09/07/24 09:00 72 111/43 L 09/07/24 08:45 75 113/45 L 09/07/24 08:30 74 125/48 L 09/07/24 08:15 77 139/55 L 09/07/24 08:00 78 09/07/24 08:00 72 130/52 L 09/07/24 07:43 74 131/52 L 09/07/24 07:30 98.1 F 72 16 126/50 L 97 09/07/24 07:30 97.8 F 73 20 145/42 H 93 09/07/24 06:22 76 09/07/24 04:00 76 18 95 Room Air 09/07/24 04:00 76 09/07/24 04:00 97.8 F 79 18 119/41 L 95 09/06/24 23:47 97.9 F 73 18 123/42 L 98 09/06/24 23:45 73 16 100 Room Air 09/06/24 23:44 73 09/06/24 23:19 98.2 F 73 16 123/42 L 100 09/06/24 22:08 98.1 F 70 16 128/53 L 99 09/06/24 21:08 97.7 F 68 16 119/42 L 96 09/06/24 20:08 97.4 F L 67 16 115/36 L 100 09/06/24 20:00 67 09/06/24 19:53 97.9 F 67 16 128/78 95 09/06/24 19:50 97.7 F 66 18 120/38 L 98 09/06/24 18:00 65 09/06/24 17:53 97.6 F 64 18 107/34 L 99 09/06/24 17:44 62 17 144/50 H 98 09/06/24 16:45 55 L 09/06/24 13:59 100 Room Air 09/06/24 13:55 59 L 26 H 111/43 L 96 Room Air 09/06/24 13:48 97.5 F L 59 L 16 95/35 L 98 Exam 2 Narrative: GENERAL APPEARANCE: elderly but well developed well nourished male in no acute distress HEENT: normocephalic, atraumatic, normal conjunctiva and sclera, nares patient NECK: no lymphadenopathy, thyromegaly, or JVD MOUTH: normal lips, teeth, and gums CARDIOVASCULAR: RRR, normal S1 and S2, no rub RESPIRATORY: clear anteriorly but decreased on the left ABDOMEN: soft, nontender, nondistended, positive bowel sounds present EXTREMITIES: no evidence of cyanosis, clubbing, or edema NEUROLOGICAL: alert and oriented x 3; CN II - XII intact bilaterally; no focal deficits noted Results Lab Results 09/07/24 05:10 09/07/24 05:10 Lab results: Most recent lab results Calcium 8.5 mg/dL (8.4-10.2) 09/07/24 05:10 Magnesium 2.2 mg/dL (1.6-2.3) 09/07/24 05:10
--- NOTE | 2024-09-07 11:40 | PC.NURSE ---
Patient received from Dialysis per bed.
[2024-09-07] MEDS: ASPIRIN 81 MG ENTERIC TABLET PO (11:59)
--- NOTE | 2024-09-07 14:07 | PM.PNCARD ---
Progress Note: A&P Assessment and Plan (1) Chest pain: Qualifiers: Chest pain type: unspecified Qualified Code(s): R07.9 - Chest pain, unspecified Code(s): R07.9 - Chest pain, unspecified Status: Acute Plan 74-year-old man with diabetes and ESRD on hemodialysis was brought in by his daughter for labile blood pressures who was also found to have chest pain Chest pain - His clinical presentation does not correlate very well with ischemia; however, he does have risk factors. Troponins are negative. - Would hold off on heparinization for now given his previous severe anemia. No plans for ischemic evaluation at this time given severe anemia. - Continue ASA, statin. - TTE pending. - Family reports recent cardiac workup at [facility]. Will obtain records. - Further recommendations and plan pending results of echo. Subjective Date/time seen: 09/07/24 14:07 Interval history: Reason for visit: Chest pain HPI: 74-year-old man with diabetes and ESRD on hemodialysis was brought in by his daughter for labile blood pressures. The patient's daughter who has been taking care of him provided [place] translation. she states that hemodialysis is relatively new for the patient and he has been having very labile blood pressures. She also endorsed that the patient was recently admitted at [facility] where he was having chest pain that is also left-sided however now the chest pain is different in that it is on both sides of his chest. The chest pain significantly worsens on palpation. There are also significant concerns of shortness of breath with exertion as well as lightheadedness. Daughter states that the patient has previously been functional and is able to ambulate but since starting hemodialysis has been having chest pain, shortness of breath, as well as lightheadedness. There is also complain of lower extremity swelling. Daughter also explained that at [facility] there were significant concerns of how anemic the patient was and upon further questioning, the daughter does not know if the patient has any bleeding history however is under the impression that the patient has low production. Date of service 09/07: Reports pain that starts at his left lower side/back and radiates up. Daughters at bedside translate for the patient. Review of Systems Review of Systems: All systems reviewed & are unremarkable except as noted in HPI and below (HPI) Exam Const: General: no acute distress HENMT: Mouth: Yes moist mucous membranes Eyes: General: appearance normal, both eyes and all related structures Sclera: sclerae normal Resp: Effort & Inspection: normal respiratory effort Cardio: Rate: regular rate Rhythm: regular rhythm Skin: General skin exam: normal color Psych: Mental Status: mental status grossly normal Affect: normal affect Objective Data Vital Signs Vital Signs: Vital Signs - 24 hr 09/06/24 16:45 09/06/24 17:44 09/06/24 17:53 Temperature 36.4 C Pulse Rate 55 L 62 64 Respiratory Rate 17 18 Blood Pressure 144/50 H 107/34 L Pulse Oximetry 98 99 Oxygen Delivery 09/06/24 18:00 09/06/24 19:50 09/06/24 19:53 Temperature 36.5 C 36.6 C Pulse Rate 65 66 67 Respiratory Rate 18 16 Blood Pressure 120/38 L 128/78 Pulse Oximetry 98 95 Oxygen Delivery 09/06/24 20:00 09/06/24 20:08 09/06/24 21:08 Temperature 36.3 C L 36.5 C Pulse Rate 67 67 68 Respiratory Rate 16 16 Blood Pressure 115/36 L 119/42 L Pulse Oximetry 100 96 Oxygen Delivery 09/06/24 22:08 09/06/24 23:19 09/06/24 23:44 Temperature 36.7 C 36.8 C Pulse Rate 70 73 73 Respiratory Rate 16 16 Blood Pressure 128/53 L 123/42 L Pulse Oximetry 99 100 Oxygen Delivery 09/06/24 23:45 09/06/24 23:47 09/07/24 04:00 Temperature 36.6 C 36.6 C Pulse Rate 73 73 79 Respiratory Rate 16 18 18 Blood Pressure 123/42 L 119/41 L Pulse Oximetry 100 98 95 Oxygen Delivery Room Air 09/07/24 04:00 09/07/24 04:00 09/07/24 06:22 Temperature Pulse Rate 76 76 76 Respiratory Rate 18 Blood Pressure Pulse Oximetry 95 Oxygen Delivery Room Air 09/07/24 07:30 09/07/24 07:30 09/07/24 07:43 Temperature 36.6 C 36.7 C Pulse Rate 73 72 74 Respiratory Rate 20 16 Blood Pressure 145/42 H 126/50 L 131/52 L Pulse Oximetry 93 97 Oxygen Delivery 09/07/24 08:00 09/07/24 08:00 09/07/24 08:15 Temperature Pulse Rate 72 78 77 Respiratory Rate Blood Pressure 130/52 L 139/55 L Pulse Oximetry Oxygen Delivery 09/07/24 08:30 09/07/24 08:45 09/07/24 09:00 Temperature Pulse Rate 74 75 72 Respiratory Rate Blood Pressure 125/48 L 113/45 L 111/43 L Pulse Oximetry Oxygen Delivery 09/07/24 09:15 09/07/24 09:30 09/07/24 09:45 Temperature Pulse Rate 74 74 73 Respiratory Rate Blood Pressure 116/43 L 122/44 L 121/45 L Pulse Oximetry Oxygen Delivery 09/07/24 10:00 09/07/24 10:00 09/07/24 10:15 Temperature Pulse Rate 73 76 72 Respiratory Rate Blood Pressure 124/48 L 126/48 L Pulse Oximetry Oxygen Delivery 09/07/24 10:30 09/07/24 10:45 09/07/24 11:00 Temperature Pulse Rate 72 73 73 Respiratory Rate Blood Pressure 121/48 L 117/48 L 125/50 L Pulse Oximetry Oxygen Delivery 09/07/24 11:14 09/07/24 11:28 09/07/24 12:05 Temperature 36.8 C Pulse Rate 72 74 73 Respiratory Rate 16 Blood Pressure 116/50 L 130/56 L Pulse Oximetry 96 Oxygen Delivery Intake/Output Intake/Output: Intake & Output 09/04/24 09/05/24 09/06/24 09/07/24 23:59 23:59 23:59 23:59 Intake Total 500 250 Output Total 2000 Balance 500 -1750 Meds/Results Medications: Active Medications Generic Name Dose Route Start Last Admin Trade Name Rejiq PRN Reason Stop Dose Admin Acetaminophen 650 mg 09/06/24 15:40 09/07/24 04:43 Acetaminophen 325 Mg Tablet PO 650 mg Q4H PRN Administration Mild Pain (1-3) or Fever Aspirin 81 mg 09/07/24 09:00 09/07/24 11:59 Aspirin 81 Mg Enteric Tablet PO 81 mg QAM NICOLE Administration Atorvastatin Calcium 80 mg 09/06/24 18:00 09/06/24 21:24 Atorvastatin 40 Mg Tablet PO 80 mg EVENING NICOLE Administration Epoetin Elliot-epbx 10,000 units 09/07/24 18:53 09/07/24 09:26 Epoetin Elliot-Epbx 10,000 Units/Ml Vial IV PUSH 09/07/24 18:54 10,000 units ONCE ONE Administration Levofloxacin/Dextrose 500 mg in 100 mls @ 100 mls/hr 09/08/24 16:00 Levaquin 500 Mg/D5w 100 Ml IVPB Q48H NICOLE Albumin Human 50 mls @ 999 mls/hr 09/07/24 06:52 Albutein IVPB 10/07/24 06:51 Q10M PRN HYPOTENSION Morphine Sulfate 2 mg 09/06/24 15:40 09/07/24 11:59 Morphine Sulfate (*Crx) 2 Mg/Ml Inj IV PUSH 2 mg Q2H PRN Administration Pain Rated 7-10 Ondansetron HCl 4 mg 09/06/24 15:40 Ondansetron Inj 4 Mg/2 Ml Vial IV PUSH Q4H PRN Nausea Perflutren Lipid Microsphere 0 ml 09/06/24 15:28 Perflutren Lipid Microspheres 1.5 Ml Vial Diluted To 10 Ml Total Volume IV PUSH 09/09/24 15:28 ONCE PRN adequate visualization Protocol Radiology Results: ITS Impressions Chest X-Ray 09/06/24 14:38 IMPRESSION: Left basilar atelectasis versus pneumonia. Chest CTA 09/06/24 17:14 IMPRESSION: No pulmonary embolus. No thoracic aortic dissection. Large left-sided pleural effusion with adjacent compressive atelectasis. Labs Labs: Laboratory Results - last 24 hr 09/06/24 09/06/24 09/06/24 14:13 15:56 17:38 WBC 13.2 H RBC 2.36 L Hgb 7.2 L Hct 23.2 L MCV 98.3 MCH 30.5 MCHC 31.0 L RDW 17.3 H Plt Count 292 MPV 9.4 Immature Gran % (Auto) 0.9 H Neut % (Auto) 93.6 H Lymph % (Auto) 1.6 L Clarke % (Auto) 3.6 Eos % (Auto) 0.1 Baso % (Auto) 0.2 Lymph # (Auto) 0.21 L Clarke # (Auto) 0.5 Eos # (Auto) 0.0 Baso # (Auto) 0.0 Abs Immat Gran (auto) 0.12 H Absolute Neuts (auto) 12.3 H Absolute Nucleated RBC 0.000 Band Neutrophils % 0 Nucleated RBC % 0.0 Platelet Estimate Adequate Clumped Platelets Present Hypochromasia 1+ Anisocytosis 2+ Schistocytes None seen PT 20.4 H INR 1.7 APTT 37.9 H Sodium 131 L Potassium 3.6 Chloride 91 L Carbon Dioxide 26 Anion Gap 14 H BUN 105 H Creatinine 5.64 H Estim Creat Clear Calc 10 Estimated GFR 10 L Glucose 167 H Calcium 8.8 Magnesium Iron 24 L TIBC 212 L % Saturation 11 L Ferritin 1090.00 H Total Bilirubin 0.8 AST 29 ALT 39 Alkaline Phosphatase 169 H Troponin I < 0.012 < 0.012 Total Protein 6.0 L Albumin 3.4 L Lipase 64 Nasal MRSA (PCR) Hep Bs Antigen Hep Bs Antibody Blood Type O Positive Antibody Screen Negative Crossmatch See Detail 09/06/24 09/06/24 09/07/24 18:09 20:49 05:10 WBC 11.9 H RBC 2.65 L Hgb 7.9 L Hct 25.5 L MCV 96.2 MCH 29.8 MCHC 31.0 L RDW 18.0 H Plt Count 282 MPV 9.0 Immature Gran % (Auto) 0.9 H Neut % (Auto) 86.7 H Lymph % (Auto) 5.5 L Clarke % (Auto) 6.3 Eos % (Auto) 0.3 Baso % (Auto) 0.3 Lymph # (Auto) 0.65 L Clarke # (Auto) 0.8 H Eos # (Auto) 0.0 Baso # (Auto) 0.0 Abs Immat Gran (auto) 0.11 H Absolute Neuts (auto) 10.3 H Absolute Nucleated RBC 0.000 Band Neutrophils % Nucleated RBC % 0.0 Platelet Estimate Clumped Platelets Hypochromasia Anisocytosis Schistocytes PT INR APTT Sodium 133 L Potassium 4.3 Chloride 93 L Carbon Dioxide 23 Anion Gap 17 H BUN 118 H D Creatinine 6.48 H Estim Creat Clear Calc 9 Estimated GFR 8 L Glucose 108 Calcium 8.5 Magnesium 2.2 Iron TIBC % Saturation Ferritin Total Bilirubin 0.9 AST 27 ALT 41 Alkaline Phosphatase 164 H Troponin I < 0.012 0.015 Total Protein 6.0 L Albumin 3.3 L Lipase Nasal MRSA (PCR) Not detected Hep Bs Antigen Hep Bs Antibody Blood Type Antibody Screen Crossmatch 09/07/24 07:02 WBC RBC Hgb Hct MCV MCH MCHC RDW Plt Count MPV Immature Gran % (Auto) Neut % (Auto) Lymph % (Auto) Clarke % (Auto) Eos % (Auto) Baso % (Auto) Lymph # (Auto) Clarke # (Auto) Eos # (Auto) Baso # (Auto) Abs Immat Gran (auto) Absolute Neuts (auto) Absolute Nucleated RBC Band Neutrophils % Nucleated RBC % Platelet Estimate Clumped Platelets Hypochromasia Anisocytosis Schistocytes PT INR APTT Sodium Potassium Chloride Carbon Dioxide Anion Gap BUN Creatinine Estim Creat Clear Calc Estimated GFR Glucose Calcium Magnesium Iron TIBC % Saturation Ferritin Total Bilirubin AST ALT Alkaline Phosphatase Troponin I Total Protein Albumin Lipase Nasal MRSA (PCR) Hep Bs Antigen Negative Hep Bs Antibody Negative Blood Type Antibody Screen Crossmatch
--- NOTE | 2024-09-07 14:10 | ECG_ITS ---
Test Date: 2024-09-07 14:36:25 Measurements Intervals [place] Rate: 69 P: 4 IN: 182 QRS: 57 QRSD: 162 T: 0 QT: 453 QTc: 486 Interpretive Statements SINUS RHYTHM RIGHT BUNDLE BRANCH BLOCK BASELINE ARTIFACT- V1-V6 ABNORMAL ECG Compared to ECG 09/06/2024 13:49:35 HEART RATE HAS INCREASED Electronically Signed On 09-07-2024 14:57:27 CDT by Priyank Basilio D.O.
[2024-09-07 15:33] LABS: Lactate Dehydrogenase 226 U/L (120-246)
[2024-09-07] MEDS: ATORVASTATIN 40 MG TABLET 80 MG PO (17:03)
[2024-09-08] VITALS (8 sets, daily range): BP systolic 127–136; BP diastolic 44–82; PULSE 72–87; RESP 16–19; TEMP 36.3–37.2; O2SAT 93–99
[2024-09-08 05:30] LABS: Hematocrit 23.6 % (42.0-52.0); Hemoglobin 7.2 g/dL (14.0-18.0); Mean Corpuscular HGB Conc 30.5 g/dl (32-36); Mean Corpuscular Hemoglobin 29.3 pg (26-34); Mean Corpuscular Volume 95.9 fl (80-100); Mean Platelet Volume 9.3 fl (7.4-10.4); Platelet Count Result 337 k/mm3 (150-375); Red Blood Count 2.46 M/mm3 (4.6-6.20); Red Cell Distribution Width 17.9 % (11.5-14.5); White Blood Count 11.1 K/mm3 (4.5-10.0)
[2024-09-08 05:41] LABS: Alanine Aminotransferase 47 U/L (6-50); Albumin Level 3.2 g/dL (3.5-5.1); Alkaline Phosphatase 204 U/L (38-126); Anion Gap 10 mmol/L (4-12); Aspartate Amino Transferase 40 U/L (17-59); Bilirubin,Total 0.6 mg/dL (0.2-1.3); Blood Urea Nitrogen 87 mg/dL (9-20); Calcium 8.3 mg/dL (8.4-10.2); Carbon Dioxide 29 mmol/L (22-30); Chloride 95 mmol/L (98-107); Estimated CRCL calculation 11 ml/min; Estimated Glomerular Filt Rate 10; Glucose 117 mg/dL (65-110); Potassium 4.3 mmol/L (3.4-5.0); Sodium 134 mmol/L (137-145)
[2024-09-08 05:47] LABS: INR 1.7; Prothrombin Time 20.9 Seconds (11.1-14.7)
[2024-09-08 05:48] LABS: Partial Thromboplastin Time 41.4 Seconds (22.3-36.8)
--- NOTE | 2024-09-08 10:27 | PM.PNCARD ---
Progress Note: A&P Assessment and Plan (1) Chest pain: Qualifiers: Chest pain type: unspecified Qualified Code(s): R07.9 - Chest pain, unspecified Code(s): R07.9 - Chest pain, unspecified Status: Acute Assessment and Plan: Appears to be chest wall pain (2) Pericardial effusion: Code(s): I31.39 - Other pericardial effusion (noninflammatory) Status: Acute Assessment and Plan: [id number] effusion likely secondary to end stage renal disease. No evidence tamponade (3) ESRD on dialysis: Code(s): N18.6 - End stage renal disease; Z99.2 - Dependence on renal dialysis Status: Acute (4) Anemia: Qualifiers: Anemia type: unspecified type Qualified Code(s): D64.9 - Anemia, unspecified Code(s): D64.9 - Anemia, unspecified Status: Acute Assessment and Plan: Chronic but significant and worse. Plan 74-year-old man with diabetes and ESRD on hemodialysis was brought in by his daughter for labile blood pressures who was also found to have chest pain Chest pain - His clinical presentation does not correlate very well with ischemia; however, he does have risk factors. Troponins are negative. - Would hold off on heparinization for now given his previous severe anemia. No plans for ischemic evaluation at this time given severe anemia. - Continue ASA, statin. His chest pain appears to be chest wall pain. Echocardiogram shows preserved ejection fraction At this point no further cardiac workup indicated as an inpatient Subjective Date/time seen: 09/08/24 10:27 Interval history: Reason for visit: Chest pain HPI: 74-year-old man with diabetes and ESRD on hemodialysis was brought in by his daughter for labile blood pressures. The patient's daughter who has been taking care of him provided [place] translation. she states that hemodialysis is relatively new for the patient and he has been having very labile blood pressures. She also endorsed that the patient was recently admitted at [facility] where he was having chest pain that is also left-sided however now the chest pain is different in that it is on both sides of his chest. The chest pain significantly worsens on palpation. There are also significant concerns of shortness of breath with exertion as well as lightheadedness. Daughter states that the patient has previously been functional and is able to ambulate but since starting hemodialysis has been having chest pain, shortness of breath, as well as lightheadedness. There is also complain of lower extremity swelling. Daughter also explained that at [facility] there were significant concerns of how anemic the patient was and upon further questioning, the daughter does not know if the patient has any bleeding history however is under the impression that the patient has low production. Date of service 09/07: Reports pain that starts at his left lower side/back and radiates up. Daughters at bedside translate for the patient. Date of service 09/08/2024 has left lateral chest pain to palpation. No shortness breath at rest. No Swelling Review of Systems Review of Systems: All systems reviewed & are unremarkable except as noted in HPI and below (HPI) Cardiovascular: Cardiovascular: Reports as per HPI and Reports chest pain Respiratory: Respiratory: Reports as per HPI Integumentary/Breasts: Skin/Breast: Denies rash Exam Narrative: Hard of hearing Const: General: no acute distress Other: Ill-appearing HENMT: Mouth: Yes moist mucous membranes Eyes: General: appearance normal, both eyes and all related structures Sclera: sclerae normal Neck: Neck: no JVD Resp: Effort & Inspection: normal respiratory effort Auscultation: clear to auscultation bilaterally Cardio: Rate: regular rate Rhythm: regular rhythm Heart sounds: Murmur heart sound present Other: tenderness across the precordium. He also has tenderness to palpate his left lateral chest wall GI: GI Palp: Yes Soft to palpation Skin: General skin exam: normal color Neuro: Speech: normal speech Extrem: General: no edema and no pedal edema Psych: Mental Status: mental status grossly normal Affect: normal affect Objective Data Vital Signs Vital Signs: Vital Signs - 24 hr 09/07/24 10:30 09/07/24 10:45 09/07/24 11:00 Temperature Pulse Rate 72 73 73 Respiratory Rate Blood Pressure 121/48 L 117/48 L 125/50 L Pulse Oximetry Oxygen Delivery 09/07/24 11:14 09/07/24 11:28 09/07/24 12:05 Temperature 36.8 C Pulse Rate 72 74 73 Respiratory Rate 16 Blood Pressure 116/50 L 130/56 L Pulse Oximetry 96 Oxygen Delivery 09/07/24 16:05 09/07/24 20:00 04/08/25 20:00 Temperature 36.5 C Pulse Rate 73 79 Respiratory Rate 16 Blood Pressure 121/40 L Pulse Oximetry 97 Oxygen Delivery Room Air 09/07/24 20:00 09/08/24 00:00 09/08/24 00:00 Temperature 36.9 C Pulse Rate 79 84 87 Respiratory Rate 16 Blood Pressure 134/48 L Pulse Oximetry 94 Oxygen Delivery 09/08/24 04:00 09/08/24 04:00 Temperature 37.2 C Pulse Rate 83 76 Respiratory Rate 16 Blood Pressure 127/53 L Pulse Oximetry 93 Oxygen Delivery Intake/Output Intake/Output: Intake & Output 09/05/24 09/06/24 09/07/24 09/08/24 23:59 23:59 23:59 23:59 Intake Total 500 1060 200 Output Total 2000 Balance 500 -940 200 Meds/Results Medications: Active Medications Generic Name Dose Route Start Last Admin Trade Name Freq PRN Reason Stop Dose Admin Acetaminophen 650 mg 09/06/24 15:40 09/07/24 04:43 Acetaminophen 325 Mg Tablet PO 650 mg Q4H PRN Administration Mild Pain (1-3) or Fever Hydrocodone Bitart/Acetaminophen 1 tab 09/07/24 17:47 Hydrocodone/Acetaminophen (*Crx) 5-325 Mg Tablet PO Q4H PRN Pain Rated 4-6 Aspirin 81 mg 09/07/24 09:00 09/07/24 11:59 Aspirin 81 Mg Enteric Tablet PO 81 mg QAM NICOLE Administration Atorvastatin Calcium 80 mg 09/06/24 18:00 09/07/24 17:03 Atorvastatin 40 Mg Tablet PO 80 mg EVENING NICOLE Administration Levofloxacin/Dextrose 500 mg in 100 mls @ 100 mls/hr 09/08/24 16:00 Levaquin 500 Mg/D5w 100 Ml IVPB Q48H NICOLE Albumin Human 50 mls @ 999 mls/hr 09/07/24 06:52 Albutein IVPB 10/07/24 06:51 Q10M PRN HYPOTENSION Morphine Sulfate 2 mg 09/06/24 15:40 09/07/24 17:05 Morphine Sulfate (*Crx) 2 Mg/Ml Inj IV PUSH 2 mg Q2H PRN Administration Pain Rated 7-10 Ondansetron HCl 4 mg 09/06/24 15:40 Ondansetron Inj 4 Mg/2 Ml Vial IV PUSH Q4H PRN Nausea Perflutren Lipid Microsphere 0 ml 09/06/24 15:28 Perflutren Lipid Microspheres 1.5 Ml Vial Diluted To 10 Ml Total Volume IV PUSH 09/09/24 15:28 ONCE PRN adequate visualization Protocol Radiology Results: ITS Impressions Chest X-Ray 09/06/24 14:38 IMPRESSION: Left basilar atelectasis versus pneumonia. Chest CTA 09/06/24 17:14 IMPRESSION: No pulmonary embolus. No thoracic aortic dissection. Large left-sided pleural effusion with adjacent compressive atelectasis. Labs Labs: Laboratory Results - last 24 hr 09/07/24 09/08/24 15:19 04:58 WBC 11.1 H RBC 2.46 L Hgb 7.2 L Hct 23.6 L MCV 95.9 MCH 29.3 MCHC 30.5 L RDW 17.9 H Plt Count 337 MPV 9.3 PT 20.9 H INR 1.7 APTT 41.4 H Sodium 134 L Potassium 4.3 Chloride 95 L Carbon Dioxide 29 Anion Gap 10 BUN 87 H D Creatinine 5.68 H Estim Creat Clear Calc 11 Estimated GFR 10 L Glucose 117 H Calcium 8.3 L Total Bilirubin 0.6 AST 40 ALT 47 Alkaline Phosphatase 204 H Lactate Dehydrogenase 226 Total Protein 6.0 L Albumin 3.2 L ECHO 1. Left ventricular chamber dimension is normal. 2. Left ventricular systolic function is normal, estimated at 55-60%. 3. There is mildly increased left ventricular wall thickness. 4. The left ventricular diastolic function is grade I diastolic dysfunction. 5. Right ventricular systolic function is normal. 6. Left atrial chamber dimension is mildly enlarged. 7. There is mild mitral valve regurgitation. 8. There is mild tricuspid valve regurgitation. 9. Left pleural effusion present. 10. There is moderate anterior pericardial effusion, posteriorly it is small. No echocardiographic evidence of tamponade.
--- NOTE | 2024-09-08 14:20 | P.PNNP_ITS ---
Subjective Date/time seen: 09/08/24 14:20 Interval history: Follow-up for end stage renal disease on hemodialysis. Tolerated dialysis treatment yesterday without any issues or problems; no further chest discomfort at the time of my visit; noted plans for ultrasound guided thoracentesis later today; no issues/events overnight or earlier this morning. Objective Data Vital Signs Vital Signs: Vital Signs Temp Pulse Resp BP Pulse Ox O2 Del Method 09/08/24 12:05 76 09/08/24 08:14 Room Air 09/08/24 08:05 77 09/08/24 04:00 76 09/08/24 04:00 99 F 83 16 127/53 L 93 09/08/24 00:00 87 09/08/24 00:00 98.4 F 84 16 134/48 L 94 09/07/24 20:00 79 09/07/24 20:00 Room Air 09/07/24 20:00 97.7 F 79 16 121/40 L 97 Intake/Output Intake/Output: Intake & Output 09/05/24 09/06/24 09/07/24 09/08/24 23:59 23:59 23:59 23:59 Intake Total 500 1060 200 Output Total 2000 600 Balance 500 -940 -400 Meds/Results Medications: Active Medications Generic Name Dose Route Start Last Admin Trade Name Rejiq PRN Reason Stop Dose Admin Acetaminophen 650 mg 09/06/24 15:40 09/07/24 04:43 Acetaminophen 325 Mg Tablet PO 650 mg Q4H PRN Administration Mild Pain (1-3) or Fever Hydrocodone Bitart/Acetaminophen 1 tab 09/07/24 17:47 Hydrocodone/Acetaminophen (*Crx) 5-325 Mg Tablet PO Q4H PRN Pain Rated 4-6 Allopurinol 100 mg 09/08/24 16:05 09/08/24 17:15 Allopurinol 100 Mg Tablet BY MOUTH 100 mg [id number] NICOLE Administration Amiodarone HCl 200 mg 09/09/24 09:00 Amiodarone Hcl 200 Mg Tablet BY MOUTH DAILY NICOLE Aspirin 81 mg 09/07/24 09:00 09/07/24 11:59 Aspirin 81 Mg Enteric Tablet PO 81 mg QAM NICOLE Administration Atorvastatin Calcium 80 mg 09/06/24 18:00 09/08/24 17:07 Atorvastatin 40 Mg Tablet PO 80 mg EVENING NICOLE Administration Atorvastatin Calcium 20 mg 09/09/24 09:00 Atorvastatin 20 Mg Tablet PO DAILY [facility] Calcitriol 0.25 mcg 09/08/24 17:00 09/08/24 17:18 Calcitriol 0.25 Mcg Capsule PO 0.25 mcg BID NICOLE Administration Doxazosin Mesylate 4 mg 09/08/24 18:00 09/08/24 17:07 Doxazosin Mesylate 4 Mg Tablet PO 4 mg QPM NICOLE Administration Ferrous Sulfate 325 mg 09/09/24 09:00 Ferrous Sulfate [address] BY MOUTH DAILY [facility] Furosemide 60 mg 09/08/24 17:00 09/08/24 17:07 Furosemide 20 Mg Tablet PO 60 mg BID [facility] Administration Levofloxacin/Dextrose 500 mg in 100 mls @ 100 mls/hr 09/08/24 16:00 09/08/24 17:07 Levaquin 500 Mg/D5w 100 Ml IVPB 100 mls/hr Q48H NICOLE Administration Albumin Human 50 mls @ 999 mls/hr 09/07/24 06:52 Albutein IVPB 10/07/24 06:51 Q10M PRN HYPOTENSION Metoprolol Tartrate 25 mg 09/09/24 09:00 Metoprolol Tartrate 25 Mg Tablet PO DAILY [facility] Morphine Sulfate 2 mg 09/06/24 15:40 09/07/24 17:05 Morphine Sulfate (*Crx) 2 Mg/Ml Inj IV PUSH 2 mg Q2H PRN Administration Pain Rated 7-10 Ondansetron HCl 4 mg 09/06/24 15:40 Ondansetron Inj 4 Mg/2 Ml Vial IV PUSH Q4H PRN Nausea Pantoprazole Sodium 40 mg 09/09/24 09:00 Pantoprazole 40 Mg Tablet PO QAM [facility] Perflutren Lipid Microsphere 0 ml 09/06/24 15:28 Perflutren Lipid Microspheres 1.5 Ml Vial Diluted To 10 Ml Total Volume IV PUSH 09/09/24 15:28 ONCE PRN adequate visualization Protocol Sodium Bicarbonate 650 mg 09/09/24 09:00 Sodium Bicarbonate Tab 650 Mg Tablet PO DAILY [facility] Vitamin B Complex/Folic Acid 1 cap 09/09/24 09:00 Vitamin B Cmplx/Vit C/Folic Ac [facility] Results: ITS Impressions Chest CTA 09/06/24 17:14 IMPRESSION: No pulmonary embolus. No thoracic aortic dissection. Large left-sided pleural effusion with adjacent compressive atelectasis. Chest X-Ray 09/08/24 15:12 IMPRESSION: Decreased left-sided pleural effusion, as detailed above. Thoracentesis Ultrasound 09/08/24 15:16 Impression: Successful ultrasound guided thoracentesis. Plan: Follow-up chest radiograph will be obtained. Labs Labs: Laboratory Tests 09/08/24 04:58 09/08/24 04:58 09/08/24 Calcium 8.3 L Total Bilirubin 0.6 AST 40 ALT 47 Alkaline Phosphatase 204 H Total Protein 6.0 L Albumin 3.2 L Microbiology 09/06/24 20:48 Blood Blood Culture - Preliminary 09/06/24 20:47 Blood Blood Culture - Preliminary
[2024-09-08 15:18] LABS: pH Pleural Fluid 7.428 (7.210-7.500)
--- NOTE | 2024-09-08 15:59 | P.PNIM_ITS ---
Progress Note: A&P Assessment and Plan (1) Chest pain: Code(s): R07.9 - Chest pain, unspecified Status: Acute (2) Anemia: Qualifiers: Anemia type: unspecified type Qualified Code(s): D64.9 - Anemia, unspecified Code(s): D64.9 - Anemia, unspecified Status: Acute (3) ESRD on dialysis: Code(s): N18.6 - End stage renal disease; Z99.2 - Dependence on renal dialysis Status: Acute Plan Chest pain patient had point tenderness however cardiology noted due patient being high risk will undergo ischemic eval ECG no acute changes ECHO shows ejection fraction 55-60%, A1c, Lipid panel pending, troponin am Aspirin 81mg and Lipitor 80mg daily cardiology following, and noted no Heparin infusion for now due to anemia Large left-sided pleural effusion Thoracentesis Ordered fluid analysis Possible pneumonia Chest pain with Possible pneumonia on CXR Also leukocytosis Blood and sputum cultures pending CT chest ordered Anemia Hb 7.2 patient was recently managed for pneumonia at [facility] Reviewed Iron panel which shows an deficiency anemia Reconciliation of home medication is pending Eliquis 5 mg p.o. b.i.d. on hold monitor H and H ESRD with azotemia BUN 105, and cr 5.64 Nephrology consulted DVT prophylaxis on SCDs, no anticoagulation pending GI bleed rule out with FOBT Full code Subjective Date/time seen: 09/08/24 15:59 Interval history: Will undergo thoracentesis today.No further workup from Cardiology. Review of Systems Review of Systems: Other systems reviewed and negative except noted in history above. Exam Narrative: General: alert and comfortable Eyes: EOMI, PERRLA ENNT External ears normal, Neck is supple, no masses, Respiratory systems: Clear to auscultation Cardiovascular S1, S2, normal rhythm, no murmur, rub, or gallop; no thrill or palpable murmurs on palpation. Gastrointestinal: soft, non-tender, and non-distended abdomen with no masses; BS present Skin: no rash, lesions, ulcerations, subcutaneous nodules or induration Musculoskeletal: no abnormality and no tenderness, normal ROM Neurologic: Alert and oriented x3, non focal Mental Status Exam: normal affect Objective Data Vital Signs Vital Signs: Vital Signs - 24 hr 09/07/24 16:05 09/07/24 20:00 09/07/24 20:00 Temperature 97.7 F Pulse Rate 73 79 Respiratory Rate 16 Blood Pressure 121/40 L Pulse Oximetry 97 Oxygen Delivery Room Air 09/07/24 20:00 09/08/24 00:00 09/08/24 00:00 Temperature 98.4 F Pulse Rate 79 84 87 Respiratory Rate 16 Blood Pressure 134/48 L Pulse Oximetry 94 Oxygen Delivery 09/08/24 04:00 09/08/24 04:00 09/08/24 08:05 Temperature 99 F Pulse Rate 83 76 77 Respiratory Rate 16 Blood Pressure 127/53 L Pulse Oximetry 93 Oxygen Delivery 09/08/24 08:14 09/08/24 12:05 Temperature Pulse Rate 76 Respiratory Rate Blood Pressure Pulse Oximetry Oxygen Delivery Room Air Intake/Output Intake/Output: Intake & Output 09/05/24 09/06/24 09/07/24 09/08/24 23:59 23:59 23:59 23:59 Intake Total 500 1060 200 Output Total 2000 600 Balance 500 -940 -400 Meds/Results Medications: Active Medications Generic Name Dose Route Start Last Admin Trade Name Freq PRN Reason Stop Dose Admin Acetaminophen 650 mg 09/06/24 15:40 09/07/24 04:43 Acetaminophen 325 Mg Tablet PO 650 mg Q4H PRN Administration Mild Pain (1-3) or Fever Hydrocodone Bitart/Acetaminophen 1 tab 09/07/24 17:47 Hydrocodone/Acetaminophen (*Crx) 5-325 Mg Tablet PO Q4H PRN Pain Rated 4-6 Aspirin 81 mg 09/07/24 09:00 09/07/24 11:59 Aspirin 81 Mg Enteric Tablet PO 81 mg QAM NICOLE Administration Atorvastatin Calcium 80 mg 09/06/24 18:00 09/07/24 17:03 Atorvastatin 40 Mg Tablet PO 80 mg EVENING NICOLE Administration Levofloxacin/Dextrose 500 mg in 100 mls @ 100 mls/hr 09/08/24 16:00 Levaquin 500 Mg/D5w 100 Ml IVPB Q48H NICOLE Albumin Human 50 mls @ 999 mls/hr 09/07/24 06:52 Albutein IVPB 10/07/24 06:51 Q10M PRN HYPOTENSION Morphine Sulfate 2 mg 09/06/24 15:40 09/07/24 17:05 Morphine Sulfate (*Crx) 2 Mg/Ml Inj IV PUSH 2 mg Q2H PRN Administration Pain Rated 7-10 Ondansetron HCl 4 mg 09/06/24 15:40 Ondansetron Inj 4 Mg/2 Ml Vial IV PUSH Q4H PRN Nausea Perflutren Lipid Microsphere 0 ml 09/06/24 15:28 Perflutren Lipid Microspheres 1.5 Ml Vial Diluted To 10 Ml Total Volume IV PUSH 09/09/24 15:28 ONCE PRN adequate visualization Protocol Radiology Results: ITS Impressions Chest CTA 09/06/24 17:14 IMPRESSION: No pulmonary embolus. No thoracic aortic dissection. Large left-sided pleural effusion with adjacent compressive atelectasis. Chest X-Ray 09/08/24 15:12 IMPRESSION: Decreased left-sided pleural effusion, as detailed above. Thoracentesis Ultrasound 09/08/24 15:16 Impression: Successful ultrasound guided thoracentesis. Plan: Follow-up chest radiograph will be obtained. Labs Labs: Laboratory Results - last 24 hr 09/08/24 09/08/24 04:58 14:39 WBC 11.1 H RBC 2.46 L Hgb 7.2 L Hct 23.6 L MCV 95.9 MCH 29.3 MCHC 30.5 L RDW 17.9 H Plt Count 337 MPV 9.3 PT 20.9 H INR 1.7 APTT 41.4 H Sodium 134 L Potassium 4.3 Chloride 95 L Carbon Dioxide 29 Anion Gap 10 BUN 87 H D Creatinine 5.68 H Estim Creat Clear Calc 11 Estimated GFR 10 L Glucose 117 H Calcium 8.3 L Total Bilirubin 0.6 AST 40 ALT 47 Alkaline Phosphatase 204 H Total Protein 6.0 L Albumin 3.2 L Pleural pH 7.428 Hospitalist [facility] Advance Care Plan I have confirmed that the patient's Advanced Care Plan is present, code status is documented, or surrogate decision maker is listed in patient medical record.: Yes Medication Reconciliation I have utilized all available resources to obtain, update and review the patients current medications (includes all prescriptions, OTC, herbals, cannabis, and nutritional supplements).: Yes
[2024-09-08 16:12] LABS: Appearance Pleural Fluid Cloudy (Clear); Color Pleural Fluid Brown (Colorless); Nucleated Cell Pleural Fluid 5004 /uL (0-1000); Pleural fluid source Pleural fluid
[2024-09-08 16:13] LABS: Lymphocytes Pleural Fluid 10 %; Macrophages Pleural Fluid 22 %; Monocytes Pleural Fluid 18 %; Neutrophils Pleural Fluid 50 % (0-25); RBC Pleural Fluid 30000 /uL (0-10000)
[2024-09-08] MEDS: DOXAZOSIN MESYLATE 4 MG TABLET PO (17:07)
[2024-09-08] MEDS: ATORVASTATIN 40 MG TABLET 80 MG PO (17:07)
[2024-09-08] MEDS: FUROSEMIDE 20 MG TABLET 60 MG PO (17:07)
[2024-09-08] MEDS: levoFLOXacin 500 MG/D5W 100 ML 500 MG/100 ML BAG 100 MG IVPB (17:07)
[2024-09-08] MEDS: allopurinoL 100 MG TABLET BY MOUTH ×2 (17:12→17:15)
[2024-09-08] MEDS: calcitrioL 0.25 MCG CAPSULE PO (17:18)
[2024-09-08] MEDS: HYDROcodone/acetaminophen (*CRX) 5-325 MG TABLET 1 TAB PO (20:31)
[2024-09-09] VITALS (31 sets, daily range): BP systolic 123–148; BP diastolic 39–69; PULSE 71–87; RESP 16–20; TEMP 36.2–37.2; O2SAT 94–100
[2024-09-09 06:03] LABS: Hematocrit 21.3 % (42.0-52.0); Mean Corpuscular Volume 96.8 fl (80-100); Mean Platelet Volume 8.9 fl (7.4-10.4); Platelet Count Result 311 k/mm3 (150-375); Red Cell Distribution Width 17.4 % (11.5-14.5); White Blood Count 8.9 K/mm3 (4.5-10.0)
[2024-09-09 06:05] LABS: Alanine Aminotransferase 46 U/L (6-50); Albumin Level 2.8 g/dL (3.5-5.1); Alkaline Phosphatase 163 U/L (38-126); Anion Gap 11 mmol/L (4-12); Aspartate Amino Transferase 36 U/L (17-59); Bilirubin,Total 0.6 mg/dL (0.2-1.3); Blood Urea Nitrogen 113 mg/dL (9-20); Calcium 8.2 mg/dL (8.4-10.2); Carbon Dioxide 28 mmol/L (22-30); Chloride 94 mmol/L (98-107); Estimated CRCL calculation 8 ml/min; Estimated Glomerular Filt Rate 8; Glucose 114 mg/dL (65-110); Potassium 4.6 mmol/L (3.4-5.0); Sodium 133 mmol/L (137-145)
[2024-09-09 06:18] LABS: Hemoglobin 6.6 g/dL (14.0-18.0)
[2024-09-09] MEDS: ALBUMIN HUMAN 25% 25 GM/100 ML 100 ML IVPB (08:55)
--- NOTE | 2024-09-09 09:37 | P.PNIM_ITS ---
Progress Note: A&P Assessment and Plan (1) Chest pain: Code(s): R07.9 - Chest pain, unspecified Status: Acute (2) Anemia: Qualifiers: Anemia type: unspecified type Qualified Code(s): D64.9 - Anemia, unspecified Code(s): D64.9 - Anemia, unspecified Status: Acute (3) ESRD on dialysis: Code(s): N18.6 - End stage renal disease; Z99.2 - Dependence on renal dialysis Status: Acute Plan Chest pain patient had point tenderness however cardiology noted due patient being high risk will undergo ischemic eval ECG no acute changes ECHO shows ejection fraction 55-60%, A1c, Lipid panel pending, troponin am Aspirin 81mg and Lipitor 80mg daily cardiology following, and noted no Heparin infusion for now due to anemia Large left-sided pleural effusion Thoracentesis Ordered fluid analysis Possible pneumonia Chest pain with Possible pneumonia on CXR Also leukocytosis Blood and sputum cultures pending CT chest ordered Anemia Hb 7.2 patient was recently managed for pneumonia at [facility] Reviewed Iron panel which shows an deficiency anemia Reconciliation of home medication is pending Eliquis 5 mg p.o. b.i.d. on hold monitor H and H Underwent egd/colonoscopy about 1-2 months ago at [facility]- per daughter only inflammation in esophagus but no major reason to explain anemia GI consulted ESRD with azotemia BUN 105, and cr 5.64 Nephrology consulted DVT prophylaxis on SCDs, no anticoagulation pending GI bleed rule out with FOBT Full code Subjective Date/time seen: 09/09/24 09:37 Interval history: Patient underwent thoracentesis yesterday and removed 0.6 L from the left lung pleural cavity. Hemoglobin 6.6 will transfuse 1 unit PRBC and consulted GI. Eliquis still on hold.As per GI he underwent egd/colonoscopy about 1-2 months ago at [facility]- per daughter only inflammation in esophagus but no major reason to explain anemia. Patient recieves dialysis MTTF. Review of Systems Review of Systems: Other systems reviewed and negative except noted in history above. Exam Narrative: General: alert and comfortable Eyes: EOMI, PERRLA ENNT External ears normal, Neck is supple, no masses, Respiratory systems: Clear to auscultation Cardiovascular S1, S2, normal rhythm, no murmur, rub, or gallop; no thrill or palpable murmurs on palpation. Gastrointestinal: soft, non-tender, and non-distended abdomen with no masses; BS present Skin: no rash, lesions, ulcerations, subcutaneous nodules or induration Musculoskeletal: no abnormality and no tenderness, normal ROM Neurologic: Alert and oriented x3, non focal Mental Status Exam: normal affect Objective Data Vital Signs Vital Signs: Vital Signs - 24 hr 09/08/24 12:05 09/08/24 16:00 09/08/24 16:04 Temperature 98.1 F Pulse Rate 76 72 74 Respiratory Rate 19 Blood Pressure 136/82 Pulse Oximetry 99 Oxygen Delivery 09/08/24 20:00 09/08/24 20:00 09/08/24 20:43 Temperature 97.4 F L Pulse Rate 78 76 Respiratory Rate 18 Blood Pressure 135/44 L Pulse Oximetry 97 Oxygen Delivery Room Air 09/09/24 00:00 09/09/24 01:16 09/09/24 04:00 Temperature 97.7 F Pulse Rate 79 76 78 Respiratory Rate 16 Blood Pressure 124/43 L Pulse Oximetry 94 Oxygen Delivery 09/09/24 05:13 09/09/24 08:28 09/09/24 08:49 Temperature 97.7 F 98.1 F Pulse Rate 83 76 77 Respiratory Rate 16 18 Blood Pressure 140/39 L 146/61 H 141/62 H Pulse Oximetry 94 100 Oxygen Delivery 09/09/24 09:00 09/09/24 09:15 09/09/24 09:30 Temperature Pulse Rate 76 75 75 Respiratory Rate Blood Pressure 128/54 L 123/55 L 140/57 L Pulse Oximetry Oxygen Delivery Intake/Output Intake/Output: Intake & Output 09/06/24 09/07/24 09/08/24 09/09/24 23:59 23:59 23:59 23:59 Intake Total 500 1060 300 787 Output Total 2000 600 Balance 500 -940 -300 787 Meds/Results Medications: Active Medications Generic Name Dose Route Start Last Admin Trade Name Freq PRN Reason Stop Dose Admin Acetaminophen 650 mg 09/06/24 15:40 09/07/24 04:43 Acetaminophen 325 Mg Tablet PO 650 mg Q4H PRN Administration Mild Pain (1-3) or Fever Hydrocodone Bitart/Acetaminophen 1 tab 09/07/24 17:47 04/09/25 20:31 Hydrocodone/Acetaminophen (*Crx) 5-325 Mg Tablet PO 1 tab Q4H PRN Administration Pain Rated 4-6 Allopurinol 100 mg 09/08/24 16:05 09/08/24 17:15 Allopurinol 100 Mg Tablet BY MOUTH 100 mg [id number] NICOLE Administration Amiodarone HCl 200 mg 09/09/24 09:00 Amiodarone Hcl 200 Mg Tablet BY MOUTH DAILY NICOLE Aspirin 81 mg 09/07/24 09:00 09/07/24 11:59 Aspirin 81 Mg Enteric Tablet PO 81 mg QAM NICOLE Administration Atorvastatin Calcium 80 mg 09/06/24 18:00 09/08/24 17:07 Atorvastatin 40 Mg Tablet PO 80 mg EVENING NICOLE Administration Atorvastatin Calcium 20 mg 09/09/24 09:00 Atorvastatin 20 Mg Tablet PO DAILY NICOLE Calcitriol 0.25 mcg 09/08/24 17:00 09/08/24 17:18 Calcitriol 0.25 Mcg Capsule PO 0.25 mcg BID NICOLE Administration Doxazosin Mesylate 4 mg 09/08/24 18:00 09/08/24 17:07 Doxazosin Mesylate 4 Mg Tablet PO 4 mg QPM NICOLE Administration Epoetin Elliot-epbx 10,000 units 09/09/24 18:02 Epoetin Elliot-Epbx 10,000 Units/Ml Vial IV PUSH 09/09/24 18:03 ONCE ONE Ferrous Sulfate 325 mg 09/09/24 09:00 Ferrous Sulfate [address] BY MOUTH DAILY NICOLE Furosemide 60 mg 09/08/24 17:00 09/08/24 17:07 Furosemide 20 Mg Tablet PO 60 mg BID NICOLE Administration Levofloxacin/Dextrose 500 mg in 100 mls @ 100 mls/hr 09/08/24 16:00 09/08/24 18:07 Levaquin 500 Mg/D5w 100 Ml IVPB Infused Q48H NICOLE Infusion Albumin Human 50 mls @ 999 mls/hr 09/07/24 06:52 Albutein IVPB 10/07/24 06:51 Q10M PRN HYPOTENSION Sodium Chloride 250 mls @ 30 mls/hr 09/09/24 06:43 Normal Saline Iv IV CONT 09/09/24 15:02 .Q8H20M STA Metoprolol Tartrate 25 mg 09/09/24 09:00 Metoprolol Tartrate 25 Mg Tablet PO DAILY [facility] Morphine Sulfate 2 mg 09/06/24 15:40 09/07/24 17:05 Morphine Sulfate (*Crx) 2 Mg/Ml Inj IV PUSH 2 mg Q2H PRN Administration Pain Rated 7-10 Ondansetron HCl 4 mg 09/06/24 15:40 Ondansetron Inj 4 Mg/2 Ml Vial IV PUSH Q4H PRN Nausea Pantoprazole Sodium 40 mg 09/09/24 09:00 Pantoprazole 40 Mg Tablet PO QAM [facility] Perflutren Lipid Microsphere 0 ml 09/06/24 15:28 Perflutren Lipid Microspheres 1.5 Ml Vial Diluted To 10 Ml Total Volume IV PUSH 09/09/24 15:28 ONCE PRN adequate visualization Protocol Sodium Bicarbonate 650 mg 09/09/24 09:00 Sodium Bicarbonate Tab 650 Mg Tablet PO DAILY [facility] Vitamin B Complex/Folic Acid 1 cap 09/09/24 09:00 Vitamin B Cmplx/Vit C/Folic Ac 1 Capsule PO QAM [facility] Radiology Results: ITS Impressions Chest CTA 09/06/24 17:14 IMPRESSION: No pulmonary embolus. No thoracic aortic dissection. Large left-sided pleural effusion with adjacent compressive atelectasis. Chest X-Ray 09/08/24 15:12 IMPRESSION: Decreased left-sided pleural effusion, as detailed above. Thoracentesis Ultrasound 09/08/24 15:16 Impression: Successful ultrasound guided thoracentesis. Plan: Follow-up chest radiograph will be obtained. Labs Labs: Laboratory Results - last 24 hr 09/06/24 09/08/24 09/08/24 15:56 14:39 14:40 WBC RBC Hgb Hct MCV MCH MCHC RDW Plt Count MPV Sodium Potassium Chloride Carbon Dioxide Anion Gap BUN Creatinine Estim Creat Clear Calc Estimated GFR Glucose Calcium Total Bilirubin AST ALT Alkaline Phosphatase Total Protein Albumin Pleural Fluid Source Pleural fluid Pleural Color Brown Pleural Appearance Cloudy Pleural pH 7.428 Pleural RBC 03950 H Pleural Nuc Cells 5004 H Pleural Neutrophils 50 H Pleural Lymphocytes 10 Pleural Monocytes 18 Pleural Macrophages 22 Blood Type O Positive Antibody Screen Negative Crossmatch See Detail 09/09/24 05:32 WBC 8.9 RBC 2.20 L Hgb 6.6 L* Hct 21.3 L MCV 96.8 MCH 30.0 MCHC 31.0 L RDW 17.4 H Plt Count 311 MPV 8.9 Sodium 133 L Potassium 4.6 Chloride 94 L Carbon Dioxide 28 Anion Gap 11 BUN 113 H D Creatinine 7.00 H Estim Creat Clear Calc 8 Estimated GFR 8 L Glucose 114 H Calcium 8.2 L Total Bilirubin 0.6 AST 36 ALT 46 Alkaline Phosphatase 163 H Total Protein 5.0 L Albumin 2.8 L Pleural Fluid Source Pleural Color Pleural Appearance Pleural pH Pleural RBC Pleural Nuc Cells Pleural Neutrophils Pleural Lymphocytes Pleural Monocytes Pleural Macrophages Blood Type Antibody Screen Crossmatch Hospitalist [facility] Advance Care Plan I have confirmed that the patient's Advanced Care Plan is present, code status is documented, or surrogate decision maker is listed in patient medical record.: Yes Medication Reconciliation I have utilized all available resources to obtain, update and review the patients current medications (includes all prescriptions, OTC, herbals, cannabis, and nutritional supplements).: Yes
--- NOTE | 2024-09-09 10:41 | WPDGICN ---
GI Consult Note Consult date/time: 09/09/24 10:41 Reason for consult: JAY JAY HPI: Bulmaro Cook is a 74 year old male with a history of end-stage renal disease who presented to the ER 09/03/2024 with complaints of chest pain patient had also had hemodialysis that day and had a drop in blood pressure. GI has been consulted for iron deficiency anemia. Per ER note, patient was recently admitted to [facility] for pneumonia at which time he had a blood transfusion. Cardiology and Nephrology on patient's case. Cardiac workup so far has been unremarkable and echo showed ejection fraction of 55-60%. Chest pain thought to be secondary to chest wall pain. Patient noted to have pleural effusion this admission and underwent a thoracentesis. Labs since admission showed iron deficiency and H&H today show HGB 6.6 and HCT 21. INR 1.7. ENDOSCOPY HISTORY: EGD: [ ] Findings: [ ] Bx results: [ ] COLONOSCOPY: [ ] Findings: [ ] Bx results: [ ] LABS AND STOOL STUDIES: Labs since admission September 06: Sodium 133, potassium 4.6, BUN 113, creatinine 7.00, GFR 8 WBC 9, Hgb 6.6, Hct 21, MCV 97, platelets 311, INR 1.7 Total bilirubin 0.6, AST 36, ALT 46, Alkaline Phos 163, albumin 2.8 Total iron 24, TIBC 212, iron sat 11, ferritin 1090 IMAGING: CTA chest 09/06/2024: IMPRESSION: No pulmonary embolus. No thoracic aortic dissection. Large left-sided pleural effusion with adjacent compressive atelectasis. [facility] Past Medical History Medical History (Updated 09/08/24 @ 10:30 by Amado Estes MD) Pericardial effusion History of end stage renal disease Family History Family History (Updated 09/06/24 @ 18:37 by Jackelin Franco RN) Father Myocardial infarct Sibling Myocardial infarct Mother Dementia Social History Social History Smoking status: Former smoker Additional smoking assessment comments: quit many years ago Alcohol intake: never Substance use: never Do You Feel Safe in your Home?: Yes Lack of Transportation: No Lack of Food: Never True Current Housing: I Have Housing Concerned About Future Housing: No Difficulty Paying Gas/Electric Bills: No Difficulty Paying for Meds: No Currently Unemployed: No Education: High School Diploma/GED Difficulty w/ Childcare or Family Care: No Spiritual care concerns: No Meds Home Medications and Allergies Home Medications ?Medication ?Instructions ?Recorded ?Confirmed ?Type allopurinol 100 mg tablet See Rx Instructions .Route .COMPLEX 09/06/24 09/06/24 History amiodarone 400 mg tablet 200 mg PO DAILY 09/06/24 09/06/24 History apixaban 5 mg tablet (Eliquis) 5 mg PO Q12H 09/06/24 09/06/24 History atorvastatin 20 mg tablet (Lipitor) 20 mg PO DAILY 09/06/24 09/06/24 History calcitriol 0.25 mcg capsule 0.25 mcg PO BID 09/06/24 09/06/24 History doxazosin 4 mg tablet (Cardura) 4 mg PO QPM 09/06/24 09/06/24 History ferrous sulfate 325 mg (65 mg 325 mg PO DAILY 09/06/24 09/06/24 History iron) tablet (iron) furosemide 40 mg tablet 60 mg PO BID 09/06/24 09/06/24 History metoprolol tartrate 25 mg tablet 25 mg PO DAILY 09/06/24 09/06/24 History pantoprazole 40 mg tablet,delayed 40 mg PO QAM 09/06/24 09/06/24 History release (Protonix) sodium bicarbonate 650 mg tablet 650 mg PO DAILY 09/06/24 09/06/24 History vitamin B complex-vitamin C-folic 1 tablet PO DAILY 09/06/24 09/06/24 History acid 800 mcg chewable tablet (Dialyvite 800) Allergies Allergy/AdvReac Type Severity Reaction Status Date / Time No Known Allergies Allergy Unverified 09/06/24 13:40 Vital Signs Vital Signs - 24 hr 09/08/24 12:05 09/08/24 16:00 09/08/24 16:04 Temperature 98.1 F Pulse Rate 76 72 74 Respiratory Rate 19 Blood Pressure 136/82 Pulse Oximetry 99 Oxygen Delivery 09/08/24 20:00 09/08/24 20:00 09/08/24 20:43 Temperature 97.4 F L Pulse Rate 78 76 Respiratory Rate 18 Blood Pressure 135/44 L Pulse Oximetry 97 Oxygen Delivery Room Air 09/09/24 00:00 09/09/24 01:16 09/09/24 04:00 Temperature 97.7 F Pulse Rate 79 76 78 Respiratory Rate 16 Blood Pressure 124/43 L Pulse Oximetry 94 Oxygen Delivery 09/09/24 05:13 09/09/24 08:28 09/09/24 08:49 Temperature 97.7 F 98.1 F Pulse Rate 83 76 77 Respiratory Rate 16 18 Blood Pressure 140/39 L 146/61 H 141/62 H Pulse Oximetry 94 100 Oxygen Delivery 09/09/24 09:00 09/09/24 09:15 09/09/24 09:30 Temperature Pulse Rate 76 75 75 Respiratory Rate Blood Pressure 128/54 L 123/55 L 140/57 L Pulse Oximetry Oxygen Delivery 09/09/24 09:45 09/09/24 10:00 09/09/24 10:15 Temperature Pulse Rate 76 75 75 Respiratory Rate Blood Pressure 129/56 L 141/58 H 139/64 Pulse Oximetry Oxygen Delivery 09/09/24 10:15 09/09/24 10:30 Temperature 98.1 F 98.1 F Pulse Rate 78 75 Respiratory Rate 16 18 Blood Pressure 139/64 139/65 Pulse Oximetry 100 100 Oxygen Delivery Results Labs 09/09/24 05:32 09/09/24 05:32 Labs: Short CBC 09/09/24 Range/Units 05:32 WBC 8.9 (4.5-10.0) K/mm3 Hgb 6.6 L* (14.0-18.0) g/dL Hct 21.3 L (42.0-52.0) % Plt Count 311 (150-375) k/mm3 BMP 09/09/24 05:32 Sodium 133 L Potassium 4.6 Chloride 94 L Carbon Dioxide 28 BUN 113 H D Creatinine 7.00 H Glucose 114 H Calcium 8.2 L Liver Function 09/09/24 Range/Units 05:32 Total Bilirubin 0.6 (0.2-1.3) mg/dL AST 36 (17-59) U/L ALT 46 (6-50) U/L Alkaline Phosphatase 163 H (38-126) U/L Albumin 2.8 L (3.5-5.1) g/dL
[2024-09-09 11:15] LABS: Reticulocyte Hemoglobin Conten 30.6 pg (28.2-36.6); Reticulocyte Percent 1.32 % (0.7-4.3); Reticulocytes Absolute 0.03 10^6/uL (0.02-0.10)
[2024-09-09] MEDS: EPOETIN ALFA-EPBX 10,000 UNITS/ML VIAL 10000 UNITS IV PUSH (12:04)
[2024-09-09] MEDS: SODIUM CHLORIDE 0.9% IV 250 ML 30 ML IV CONT (12:07)
[2024-09-09] MEDS: TUBING, BLOOD PLUM PUMP TUBING 1 EACH XX (12:07)
--- NOTE | 2024-09-09 12:17 | PM.PNNEP ---
Subjective Date/time seen: 09/09/24 12:17 Interval history: Follow-up for end stage renal disease on hemodialysis. Tolerating dialysis treatment at the time of my visit (seen on HD at 12:05PM); PRBC transfusion with dialysis today due to low H/H by AM labs; no apparent distress voiced; still reports some chest discomfort associated with cough and deep breathing; no issues/events overnigh or earlier this morning. Objective Data Vital Signs Vital Signs: Vital Signs Temp Pulse Resp BP Pulse Ox O2 Del Method 09/09/24 12:15 74 138/60 09/09/24 12:05 77 09/09/24 12:00 73 142/62 H 09/09/24 11:45 75 143/61 H 09/09/24 11:30 73 145/64 H 09/09/24 11:24 98 F 73 18 147/64 H 97 09/09/24 11:15 73 146/65 H 09/09/24 11:00 74 144/66 H 09/09/24 10:46 74 138/66 09/09/24 10:46 97.7 F 74 18 138/66 97 09/09/24 10:30 75 135/69 09/09/24 10:30 98.1 F 75 18 139/65 100 09/09/24 10:15 98.1 F 78 16 139/64 100 09/09/24 10:15 75 139/64 09/09/24 10:00 75 141/58 H 09/09/24 09:45 76 129/56 L 09/09/24 09:30 75 140/57 L 09/09/24 09:15 75 123/55 L 09/09/24 09:00 76 128/54 L 09/09/24 08:49 77 141/62 H 09/09/24 08:28 98.1 F 76 18 146/61 H 100 09/09/24 08:04 83 09/09/24 05:13 97.7 F 83 16 140/39 L 94 09/09/24 04:00 78 09/09/24 01:16 97.7 F 76 16 124/43 L 94 09/09/24 00:00 79 09/08/24 20:43 97.4 F L 76 18 135/44 L 97 09/08/24 20:00 78 09/08/24 20:00 Room Air 09/08/24 16:04 74 09/08/24 16:00 98.1 F 72 19 136/82 99 Intake/Output Intake/Output: Intake & Output 09/06/24 09/07/24 09/08/24 09/09/24 23:59 23:59 23:59 23:59 Intake Total 500 3630 182 5365 Output Total 2000 600 2000 Balance 500 -940 -300 -743 Meds/Results Medications: Active Medications Generic Name Dose Route Start Last Admin Trade Name Freq PRN Reason Stop Dose Admin Acetaminophen 650 mg 09/06/24 15:40 09/07/24 04:43 Acetaminophen 325 Mg Tablet PO 650 mg Q4H PRN Administration Mild Pain (1-3) or Fever Hydrocodone Bitart/Acetaminophen 1 tab 09/07/24 17:47 09/08/24 20:31 Hydrocodone/Acetaminophen (*Crx) 5-325 Mg Tablet PO 1 tab Q4H PRN Administration Pain Rated 4-6 Allopurinol 100 mg 09/08/24 16:05 09/08/24 17:15 Allopurinol 100 Mg Tablet BY MOUTH 100 mg [email or web address] NICOLE Administration Amiodarone HCl 200 mg 09/09/24 09:00 09/09/24 13:02 Amiodarone Hcl 200 Mg Tablet BY MOUTH 200 mg DAILY NICOLE Administration Aspirin 81 mg 09/07/24 09:00 09/07/24 11:59 Aspirin 81 Mg Enteric Tablet PO 81 mg QAM NICOLE Administration Atorvastatin Calcium 80 mg 09/06/24 18:00 09/08/24 17:07 Atorvastatin 40 Mg Tablet PO 80 mg EVENING NICOLE Administration Atorvastatin Calcium 20 mg 09/09/24 09:00 09/09/24 13:03 Atorvastatin 20 Mg Tablet PO 20 mg DAILY NICOLE Administration Calcitriol 0.25 mcg 09/08/24 17:00 09/09/24 13:04 Calcitriol 0.25 Mcg Capsule PO 0.25 mcg BID NICOLE Administration Doxazosin Mesylate 4 mg 09/08/24 18:00 09/08/24 17:07 Doxazosin Mesylate 4 Mg Tablet PO 4 mg QPM NICOLE Administration Epoetin Elliot-epbx 10,000 units 09/09/24 18:02 09/09/24 12:04 Epoetin Elliot-Epbx 10,000 Units/Ml Vial IV PUSH 09/09/24 18:03 10,000 units ONCE ONE Administration Ferrous Sulfate 325 mg 09/09/24 09:00 09/09/24 13:02 Ferrous Sulfate [address] BY MOUTH 325 mg DAILY NICOLE Administration Furosemide 60 mg 09/08/24 17:00 09/09/24 13:04 Furosemide 20 Mg Tablet PO 60 mg BID NICOLE Administration Levofloxacin/Dextrose 500 mg in 100 mls @ 100 mls/hr 09/08/24 16:00 09/08/24 18:07 Levaquin 500 Mg/D5w 100 Ml IVPB Infused Q48H NICOLE Infusion Albumin Human 50 mls @ 999 mls/hr 09/07/24 06:52 Albutein IVPB 10/07/24 06:51 Q10M PRN HYPOTENSION Metoprolol Tartrate 25 mg 09/09/24 09:00 09/09/24 13:03 Metoprolol Tartrate 25 Mg Tablet PO 25 mg DAILY NICOLE Administration Morphine Sulfate 2 mg 09/06/24 15:40 09/07/24 17:05 Morphine Sulfate (*Crx) 2 Mg/Ml Inj IV PUSH 2 mg Q2H PRN Administration Pain Rated 7-10 Ondansetron HCl 4 mg 09/06/24 15:40 Ondansetron Inj 4 Mg/2 Ml Vial IV PUSH Q4H PRN Nausea Pantoprazole Sodium 40 mg 09/09/24 09:00 09/09/24 13:02 Pantoprazole 40 Mg Tablet PO 40 mg QAM NICOLE Administration Sodium Bicarbonate 650 mg 09/09/24 09:00 09/09/24 13:02 Sodium Bicarbonate Tab 650 Mg Tablet PO 650 mg DAILY NICOLE Administration Vitamin B Complex/Folic Acid 1 cap 09/09/24 09:00 09/09/24 13:05 Vitamin B Cmplx/Vit C/Folic Ac 1 Capsule PO 1 cap QAM NICOLE Administration Radiology Results: ITS Impressions Chest CTA 09/06/24 17:14 IMPRESSION: No pulmonary embolus. No thoracic aortic dissection. Large left-sided pleural effusion with adjacent compressive atelectasis. Chest X-Ray 09/08/24 15:12 IMPRESSION: Decreased left-sided pleural effusion, as detailed above. Thoracentesis Ultrasound 09/08/24 15:16 Impression: Successful ultrasound guided thoracentesis. Plan: Follow-up chest radiograph will be obtained. Labs Labs: Laboratory Tests 09/09/24 05:32 09/09/24 05:32 Total Bilirubin 0.6 AST 36 ALT 46 Alkaline Phosphatase 163 H Total Protein 5.0 L Albumin 2.8 L
[2024-09-09] MEDS: AMIODARONE HCL 200 MG TABLET BY MOUTH (13:02)
[2024-09-09] MEDS: SODIUM BICARBONATE TAB 650 MG TABLET PO (13:02)
[2024-09-09] MEDS: PANTOPRAZOLE 40 MG TABLET PO (13:02)
[2024-09-09] MEDS: FERROUS SULFATE 325 MG TABLET DR BY MOUTH (13:02)
[2024-09-09] MEDS: METOPROLOL TARTRATE 25 MG TABLET PO (13:03)
[2024-09-09] MEDS: ATORVASTATIN 20 MG TABLET PO (13:03)
[2024-09-09] MEDS: FUROSEMIDE 20 MG TABLET 60 MG PO ×2 (13:04→17:46)
[2024-09-09] MEDS: calcitrioL 0.25 MCG CAPSULE PO ×2 (13:04→17:46)
[2024-09-09] MEDS: VITAMIN B CMPLX/VIT C/FOLIC AC 1 CAPSULE 1 CAP PO (13:05)
--- NOTE | 2024-09-09 16:07 | PC.NURSE ---
On 09/09/24, the student, Corinne Cramer, provided care and completed [facility] documentation on this patient. I have reviewed the student's documentation and agree with the findings.
--- NOTE | 2024-09-09 16:14 | WPDGICN ---
Assessment and Plan Assessment and plan (1) Acute on chronic anemia: Code(s): D64.9 - Anemia, unspecified Status: Acute Assessment and Plan: patient already completed gi work up recently with egd and colonoscopy at [facility], no need to repeat anemia probably from chronic disease, dialysis, etc will follow only as needed (2) ESRD on dialysis: Code(s): N18.6 - End stage renal disease; Z99.2 - Dependence on renal dialysis Status: Acute Assessment and Plan: by alterations tailor (3) Hypotension: Code(s): I95.9 - Hypotension, unspecified Status: Acute Assessment and Plan: cardiology on board (4) Pleural effusion: Code(s): J90 - Pleural effusion, not elsewhere classified Status: Acute Assessment and Plan: s/p thoracentesis (5) Chest pain: Code(s): R07.9 - Chest pain, unspecified Status: Acute (6) Pericardial effusion: Code(s): I31.39 - Other pericardial effusion (noninflammatory) Status: Acute GI Consult Note Consult date/time: 09/09/24 16:14 Reason for consult: anemia HPI: Bulmaro Cook is a 74 year old male with history of end-stage renal disease on dialysis presented to the ER with ongoing chest pain and also noted to have hypotension while he was on dialysis at [facility]. He was just recently discharged from [facility]. Family is here and said that he was started on dialysis about 1 month ago, also has chronic anemia for which he underwent egd/colonoscopy about 1-2 months ago at [facility]- per daughter only inflammation in esophagus but no major reason to explain anemia. Here with large pleural effusion, underwent thoracentesis, treated for possible pneumonia. He denies overt gib but noted anemia again hgb 7 . Review of Systems Constitutional: Constitutional: Reports weakness Eyes: Eyes: Denies blurry vision ENT: Reports Normal hearing present Cardiovascular: Cardiovascular: Reports chest pain Respiratory: Respiratory: Reports dyspnea on exertion Gastrointestinal: Gastrointestinal: Denies abdominal pain Genitourinary: Comments: on dialysis Musculoskeletal: Musculoskeletal: Denies neck pain Integumentary/Breasts: Skin/Breast: Denies rash Neurologic: Denies Abnormal speech present Psychiatric: Psychiatric: Denies behavioral changes [facility] Past Medical History Medical History (Updated 09/09/24 @ 16:18 by Shemar Pool MD) Pleural effusion Hypotension Acute on chronic anemia Pericardial effusion History of end stage renal disease Family History Family History (Updated 09/06/24 @ 18:37 by Jackelin Franco RN) Father Myocardial infarct Sibling Myocardial infarct Mother Dementia Social History Social History Smoking status: Former smoker Additional smoking assessment comments: quit many years ago Alcohol intake: never Substance use: never Do You Feel Safe in your Home?: Yes Lack of Transportation: No Lack of Food: Never True Current Housing: I Have Housing Concerned About Future Housing: No Difficulty Paying Gas/Electric Bills: No Difficulty Paying for Meds: No Currently Unemployed: No Education: High School Diploma/GED Difficulty w/ Childcare or Family Care: No Spiritual care concerns: No Meds Home Medications and Allergies Home Medications ?Medication ?Instructions ?Recorded ?Confirmed ?Type allopurinol 100 mg tablet See Rx Instructions .Route .COMPLEX 09/06/24 09/06/24 History amiodarone 400 mg tablet 200 mg PO DAILY 09/06/24 09/06/24 History apixaban 5 mg tablet (Eliquis) 5 mg PO Q12H 09/06/24 09/06/24 History atorvastatin 20 mg tablet (Lipitor) 20 mg PO DAILY 09/06/24 09/06/24 History calcitriol 0.25 mcg capsule 0.25 mcg PO BID 09/06/24 09/06/24 History doxazosin 4 mg tablet (Cardura) 4 mg PO QPM 09/06/24 09/06/24 History ferrous sulfate 325 mg (65 mg 325 mg PO DAILY 09/06/24 09/06/24 History iron) tablet (iron) furosemide 40 mg tablet 60 mg PO BID 09/06/24 09/06/24 History metoprolol tartrate 25 mg tablet 25 mg PO DAILY 09/06/24 09/06/24 History pantoprazole 40 mg tablet,delayed 40 mg PO QAM 09/06/24 09/06/24 History release (Protonix) sodium bicarbonate 650 mg tablet 650 mg PO DAILY 09/06/24 09/06/24 History vitamin B complex-vitamin C-folic 1 tablet PO DAILY 09/06/24 09/06/24 History acid 800 mcg chewable tablet (Dialyvite 800) Allergies Allergy/AdvReac Type Severity Reaction Status Date / Time No Known Allergies Allergy Unverified 09/06/24 13:40 Vital Signs Vital Signs - 24 hr 09/08/24 20:00 09/08/24 20:00 09/08/24 20:43 Temperature 97.4 F L Pulse Rate 78 76 Respiratory Rate 18 Blood Pressure 135/44 L Pulse Oximetry 97 Oxygen Delivery Room Air 09/09/24 00:00 09/09/24 01:16 09/09/24 04:00 Temperature 97.7 F Pulse Rate 79 76 78 Respiratory Rate 16 Blood Pressure 124/43 L Pulse Oximetry 94 Oxygen Delivery 09/09/24 05:13 09/09/24 08:04 09/09/24 08:28 Temperature 97.7 F 98.1 F Pulse Rate 83 83 76 Respiratory Rate 16 18 Blood Pressure 140/39 L 146/61 H Pulse Oximetry 94 100 Oxygen Delivery 09/09/24 08:49 09/09/24 09:00 09/09/24 09:15 Temperature Pulse Rate 77 76 75 Respiratory Rate Blood Pressure 141/62 H 128/54 L 123/55 L Pulse Oximetry Oxygen Delivery 09/09/24 09:30 09/09/24 09:45 09/09/24 10:00 Temperature Pulse Rate 75 76 75 Respiratory Rate Blood Pressure 140/57 L 129/56 L 141/58 H Pulse Oximetry Oxygen Delivery 09/09/24 10:15 09/09/24 10:15 09/09/24 10:30 Temperature 98.1 F 98.1 F Pulse Rate 75 78 75 Respiratory Rate 16 18 Blood Pressure 139/64 139/64 139/65 Pulse Oximetry 100 100 Oxygen Delivery 09/09/24 10:30 09/09/24 10:46 09/09/24 10:46 Temperature 97.7 F Pulse Rate 75 74 74 Respiratory Rate 18 Blood Pressure 135/69 138/66 138/66 Pulse Oximetry 97 Oxygen Delivery 09/09/24 11:00 09/09/24 11:15 09/09/24 11:24 Temperature 98 F Pulse Rate 74 73 73 Respiratory Rate 18 Blood Pressure 144/66 H 146/65 H 147/64 H Pulse Oximetry 97 Oxygen Delivery 09/09/24 11:30 09/09/24 11:45 09/09/24 12:00 Temperature Pulse Rate 73 75 73 Respiratory Rate Blood Pressure 145/64 H 143/61 H 142/62 H Pulse Oximetry Oxygen Delivery 09/09/24 12:05 09/09/24 12:15 09/09/24 12:21 Temperature Pulse Rate 77 74 75 Respiratory Rate Blood Pressure 138/60 141/61 H Pulse Oximetry Oxygen Delivery 09/09/24 12:27 09/09/24 13:02 09/09/24 13:03 Temperature 97.9 F Pulse Rate 76 87 87 Respiratory Rate 20 Blood Pressure 144/65 H Pulse Oximetry 97 Oxygen Delivery 09/09/24 14:30 Temperature Pulse Rate Respiratory Rate Blood Pressure Pulse Oximetry Oxygen Delivery Room Air Exam Const: General: comfortable and no acute distress HENMT: Face/Nose/Sinus: Normal nares present Eyes: General: appearance normal, both eyes and all related structures Neck: Neck: supple Resp: Auscultation: diminished lung sounds Cardio: Rate: regular rate Rhythm: regular rhythm GI: Inspection: non-distended GI Palp: Yes Soft to palpation and No Tenderness to palpation present (GI) Auscultation: normal bowel sounds Skin: General skin exam: normal color Neuro: Speech: normal speech Extrem: General: normal to inspection Psych: Mental Status: mental status grossly normal Results Labs 09/09/24 05:32 09/09/24 05:32 Labs: Short CBC 09/09/24 Range/Units 05:32 WBC 8.9 (4.5-10.0) K/mm3 Hgb 6.6 L* (14.0-18.0) g/dL Hct 21.3 L (42.0-52.0) % Plt Count 311 (150-375) k/mm3 [facility] 09/09/24 05:32 Sodium 133 L Potassium 4.6 Chloride 94 L Carbon Dioxide 28 BUN 113 H D Creatinine 7.00 H Glucose 114 H Calcium 8.2 L Liver Function 09/09/24 Range/Units 05:32 Total Bilirubin 0.6 (0.2-1.3) mg/dL AST 36 (17-59) U/L ALT 46 (6-50) U/L Alkaline Phosphatase 163 H (38-126) U/L Albumin 2.8 L (3.5-5.1) g/dL
[2024-09-09] MEDS: DOXAZOSIN MESYLATE 4 MG TABLET PO (17:46)
[2024-09-09] MEDS: ATORVASTATIN 40 MG TABLET 80 MG PO (17:46)
[2024-09-10] VITALS (9 sets, daily range): BP systolic 123–147; BP diastolic 39–55; PULSE 16–85; RESP 16–99; TEMP 36.9–37; O2SAT 71–99
[2024-09-10] MEDS: HYDROcodone/acetaminophen (*CRX) 5-325 MG TABLET 1 TAB PO (00:23)
[2024-09-10 06:02] LABS: Hemoglobin 8.3 g/dL (14.0-18.0); Mean Corpuscular HGB Conc 30.7 g/dl (32-36); Mean Corpuscular Hemoglobin 30.3 pg (26-34); Mean Corpuscular Volume 98.5 fl (80-100); Mean Platelet Volume 8.9 fl (7.4-10.4); Platelet Count Result 342 k/mm3 (150-375); Red Blood Count 2.74 M/mm3 (4.6-6.20); Red Cell Distribution Width 17.7 % (11.5-14.5); White Blood Count 10.1 K/mm3 (4.5-10.0)
[2024-09-10 06:15] LABS: Alanine Aminotransferase 55 U/L (6-50); Albumin Level 3.2 g/dL (3.5-5.1); Alkaline Phosphatase 208 U/L (38-126); Anion Gap 12 mmol/L (4-12); Aspartate Amino Transferase 37 U/L (17-59); Bilirubin,Total 0.6 mg/dL (0.2-1.3); Blood Urea Nitrogen 80 mg/dL (9-20); Calcium 8.7 mg/dL (8.4-10.2); Carbon Dioxide 23 mmol/L (22-30); Chloride 100 mmol/L (98-107); Estimated CRCL calculation 11 ml/min; Estimated Glomerular Filt Rate 11; Glucose 125 mg/dL (65-110); Potassium 4.3 mmol/L (3.4-5.0); Sodium 135 mmol/L (137-145)
[2024-09-10] MEDS: FUROSEMIDE 20 MG TABLET 60 MG PO ×2 (09:34→17:52)
[2024-09-10] MEDS: SODIUM BICARBONATE TAB 650 MG TABLET PO (09:34)
[2024-09-10] MEDS: METOPROLOL TARTRATE 25 MG TABLET PO (09:35)
[2024-09-10] MEDS: FERROUS SULFATE 325 MG TABLET DR BY MOUTH (09:35)
[2024-09-10] MEDS: ATORVASTATIN 20 MG TABLET PO (09:35)
[2024-09-10] MEDS: AMIODARONE HCL 200 MG TABLET BY MOUTH (09:35)
[2024-09-10] MEDS: VITAMIN B CMPLX/VIT C/FOLIC AC 1 CAPSULE 1 CAP PO (09:35)
[2024-09-10] MEDS: calcitrioL 0.25 MCG CAPSULE PO ×2 (09:35→17:52)
[2024-09-10] MEDS: PANTOPRAZOLE 40 MG TABLET PO (09:36)
--- NOTE | 2024-09-10 17:39 | PM.IMPN ---
Progress Note: A&P Assessment and Plan (1) Chest pain: Code(s): R07.9 - Chest pain, unspecified Status: Acute (2) Anemia: Qualifiers: Anemia type: unspecified type Qualified Code(s): D64.9 - Anemia, unspecified Code(s): D64.9 - Anemia, unspecified Status: Acute (3) ESRD on dialysis: Code(s): N18.6 - End stage renal disease; Z99.2 - Dependence on renal dialysis Status: Acute Plan Chest pain patient had point tenderness however cardiology noted due patient being high risk will undergo ischemic eval ECG no acute changes ECHO shows ejection fraction 55-60%, A1c, Lipid panel pending, troponin am Aspirin 81mg and Lipitor 80mg daily cardiology following, and noted no Heparin infusion for now due to anemia Large left-sided pleural effusion Thoracentesis Ordered fluid analysis Possible pneumonia Chest pain with Possible pneumonia on CXR Also leukocytosis Blood and sputum cultures pending CT chest ordered Anemia Hb 7.2 patient was recently managed for pneumonia at [facility] Reviewed Iron panel which shows an deficiency anemia Reconciliation of home medication is pending Eliquis 5 mg p.o. b.i.d. on hold monitor H and H Underwent egd/colonoscopy about 1-2 months ago at [facility]'s- per daughter only inflammation in esophagus but no major reason to explain anemia GI consulted Patient might benefit from Heme/Onc consult as OP ESRD with azotemia BUN 105, and cr 5.64 Nephrology consulted DVT prophylaxis on SCDs, no anticoagulation pending GI bleed rule out with FOBT Full code Subjective Date/time seen: 09/10/24 17:39 Interval history: Nephrology requested possibly patient need a dialysis tomorrow since he will be out of dialysis for 2 days and gets dialysis only on Friday.Patient might benefit from Heme/Onc consult as OP Review of Systems Review of Systems: Other systems reviewed and negative except noted in history above. Exam Narrative: General: alert and comfortable Eyes: EOMI, PERRLA ENNT External ears normal, Neck is supple, no masses, Respiratory systems: Clear to auscultation Cardiovascular S1, S2, normal rhythm, no murmur, rub, or gallop; no thrill or palpable murmurs on palpation. Gastrointestinal: soft, non-tender, and non-distended abdomen with no masses; BS present Skin: no rash, lesions, ulcerations, subcutaneous nodules or induration Musculoskeletal: no abnormality and no tenderness, normal ROM Neurologic: Alert and oriented x3, non focal Mental Status Exam: normal affect Objective Data Vital Signs Vital Signs: Vital Signs - 24 hr 09/09/24 20:00 09/09/24 20:00 09/10/24 00:00 Temperature 99 F 98.6 F Pulse Rate 74 74 85 Respiratory Rate 18 18 Blood Pressure 142/48 H 147/55 H Pulse Oximetry 98 97 Oxygen Delivery 09/10/24 00:00 09/10/24 01:48 09/10/24 04:00 Temperature Pulse Rate 81 81 80 Respiratory Rate Blood Pressure Pulse Oximetry Oxygen Delivery 09/10/24 04:00 09/10/24 08:00 09/10/24 08:00 Temperature 98.6 F 98.4 F Pulse Rate 82 72 16 L Respiratory Rate 18 99 H Blood Pressure 138/52 L 123/43 L Pulse Oximetry 94 71 L Oxygen Delivery 09/10/24 08:30 09/10/24 09:35 09/10/24 09:35 Temperature Pulse Rate 78 78 78 Respiratory Rate Blood Pressure Pulse Oximetry Oxygen Delivery Room Air 09/10/24 12:00 09/10/24 16:00 Temperature 98.4 F 98.4 F Pulse Rate 70 71 Respiratory Rate 18 18 Blood Pressure 123/40 L 124/39 L Pulse Oximetry 99 98 Oxygen Delivery Intake/Output Intake/Output: Intake & Output 09/07/24 09/08/24 09/09/24 09/10/24 23:59 23:59 23:59 23:59 Intake Total 8079 145 2834 840 Output Total 2000 600 2000 Balance -940 -300 -743 840 Meds/Results Medications: Active Medications Generic Name Dose Route Start Last Admin Trade Name Freq PRN Reason Stop Dose Admin Acetaminophen 650 mg 09/06/24 15:40 09/07/24 04:43 Acetaminophen 325 Mg Tablet PO 650 mg Q4H PRN Administration Mild Pain (1-3) or Fever Hydrocodone Bitart/Acetaminophen 1 tab 09/07/24 17:47 09/10/24 00:23 Hydrocodone/Acetaminophen (*Crx) 5-325 Mg Tablet PO 1 tab Q4H PRN Administration Pain Rated 4-6 Allopurinol 100 mg 09/08/24 16:05 09/08/24 17:15 Allopurinol 100 Mg Tablet BY MOUTH 100 mg [email or web address] NICOLE Administration Amiodarone HCl 200 mg 09/09/24 09:00 09/10/24 09:35 Amiodarone Hcl 200 Mg Tablet BY MOUTH 200 mg DAILY NICOLE Administration Aspirin 81 mg 09/07/24 09:00 09/07/24 11:59 Aspirin 81 Mg Enteric Tablet PO 81 mg QAM NICOLE Administration Atorvastatin Calcium 80 mg 09/06/24 18:00 09/09/24 17:46 Atorvastatin 40 Mg Tablet PO 80 mg EVENING NICOLE Administration Atorvastatin Calcium 20 mg 09/09/24 09:00 09/10/24 09:35 Atorvastatin 20 Mg Tablet PO 20 mg DAILY NICOLE Administration Calcitriol 0.25 mcg 09/08/24 17:00 09/10/24 09:35 Calcitriol 0.25 Mcg Capsule PO 0.25 mcg BID NICOLE Administration Doxazosin Mesylate 4 mg 09/08/24 18:00 09/09/24 17:46 Doxazosin Mesylate 4 Mg Tablet PO 4 mg QPM NICOLE Administration Ferrous Sulfate 325 mg 09/09/24 09:00 09/10/24 09:35 Ferrous Sulfate [address] BY MOUTH 325 mg DAILY [facility] Administration Furosemide 60 mg 09/08/24 17:00 09/10/24 09:34 Furosemide 20 Mg Tablet PO 60 mg BID [facility] Administration Levofloxacin/Dextrose 500 mg in 100 mls @ 100 mls/hr 09/08/24 16:00 09/08/24 18:07 Levaquin 500 Mg/D5w 100 Ml IVPB Infused Q48H [facility] Infusion Albumin Human 50 mls @ 999 mls/hr 09/07/24 06:52 Albutein IVPB 10/07/24 06:51 Q10M PRN HYPOTENSION Metoprolol Tartrate 25 mg 09/09/24 09:00 09/10/24 09:35 Metoprolol Tartrate 25 Mg Tablet PO 25 mg DAILY [facility] Administration Morphine Sulfate 2 mg 09/06/24 15:40 09/07/24 17:05 Morphine Sulfate (*Crx) 2 Mg/Ml Inj IV PUSH 2 mg Q2H PRN Administration Pain Rated 7-10 Ondansetron HCl 4 mg 09/06/24 15:40 Ondansetron Inj 4 Mg/2 Ml Vial IV PUSH Q4H PRN Nausea Pantoprazole Sodium 40 mg 09/09/24 09:00 09/10/24 09:36 Pantoprazole 40 Mg Tablet PO 40 mg QAM NICOLE Administration Sodium Bicarbonate 650 mg 09/09/24 09:00 09/10/24 09:34 Sodium Bicarbonate Tab 650 Mg Tablet PO 650 mg DAILY NICOLE Administration Vitamin B Complex/Folic Acid 1 cap 09/09/24 09:00 09/10/24 09:35 Vitamin B Cmplx/Vit C/Folic Ac 1 Capsule PO 1 cap QAM NICOLE Administration Radiology Results: ITS Impressions Chest CTA 09/06/24 17:14 IMPRESSION: No pulmonary embolus. No thoracic aortic dissection. Large left-sided pleural effusion with adjacent compressive atelectasis. Thoracentesis Ultrasound 09/08/24 15:16 Impression: Successful ultrasound guided thoracentesis. Plan: Follow-up chest radiograph will be obtained. Chest X-Ray 09/10/24 16:02 IMPRESSION: Left basilar atelectasis versus pneumonia. Labs Labs: Laboratory Results - last 24 hr 09/10/24 05:45 WBC 10.1 H RBC 2.74 L Hgb 8.3 L Hct 27.0 L MCV 98.5 MCH 30.3 MCHC 30.7 L RDW 17.7 H Plt Count 342 MPV 8.9 Sodium 135 L Potassium 4.3 Chloride 100 Carbon Dioxide 23 Anion Gap 12 BUN 80 H D Creatinine 5.21 H Estim Creat Clear Calc 11 Estimated GFR 11 L Glucose 125 H Calcium 8.7 Total Bilirubin 0.6 AST 37 ALT 55 H Alkaline Phosphatase 208 H Total Protein 6.0 L Albumin 3.2 L Hospitalist MIPS Advance Care Plan I have confirmed that the patient's Advanced Care Plan is present, code status is documented, or surrogate decision maker is listed in patient medical record.: Yes Medication Reconciliation I have utilized all available resources to obtain, update and review the patients current medications (includes all prescriptions, OTC, herbals, cannabis, and nutritional supplements).: Yes
[2024-09-10] MEDS: levoFLOXacin 500 MG/D5W 100 ML 500 MG/100 ML BAG 100 MG IVPB (17:52)
[2024-09-10] MEDS: ATORVASTATIN 40 MG TABLET 80 MG PO (17:53)
[2024-09-10] MEDS: DOXAZOSIN MESYLATE 4 MG TABLET PO (17:53)
[2024-09-11] VITALS (23 sets, daily range): BP systolic 131–160; BP diastolic 47–66; PULSE 76–90; RESP 16–18; TEMP 36.5–37; O2SAT 96–100
[2024-09-11 05:43] LABS: Hematocrit 24.2 % (42.0-52.0); Hemoglobin 7.7 g/dL (14.0-18.0); Mean Corpuscular HGB Conc 31.8 g/dl (32-36); Mean Corpuscular Hemoglobin 30.4 pg (26-34); Mean Corpuscular Volume 95.7 fl (80-100); Mean Platelet Volume 8.7 fl (7.4-10.4); Platelet Count Result 313 k/mm3 (150-375); Red Blood Count 2.53 M/mm3 (4.6-6.20); Red Cell Distribution Width 17.2 % (11.5-14.5); White Blood Count 9.8 K/mm3 (4.5-10.0)
[2024-09-11 05:59] LABS: Alanine Aminotransferase 63 U/L (6-50); Albumin Level 2.8 g/dL (3.5-5.1); Alkaline Phosphatase 204 U/L (38-126); Anion Gap 12 mmol/L (4-12); Aspartate Amino Transferase 41 U/L (17-59); Bilirubin,Total 0.5 mg/dL (0.2-1.3); Blood Urea Nitrogen 102 mg/dL (9-20); Calcium 8.6 mg/dL (8.4-10.2); Carbon Dioxide 22 mmol/L (22-30); Chloride 98 mmol/L (98-107); Estimated CRCL calculation 10 ml/min; Estimated Glomerular Filt Rate 9; Glucose 109 mg/dL (65-110); Potassium 4.2 mmol/L (3.4-5.0); Sodium 132 mmol/L (137-145)
[2024-09-11] MEDS: SODIUM CHLORIDE 0.9% IV 1,000 ML 999 ML IV CONT (08:46)
--- NOTE | 2024-09-11 09:35 | PM.PNNEP ---
Subjective Date/time seen: 09/11/24 09:35 Interval history: Follow-up for end stage renal disease on hemodialysis. Tolerating dialysis treatment at the time of my visit (seen on HD at 9:25AM); no apparent distress noted currently; no issues/events overnight or earlier this morning; feels reasonably well. Objective Data Vital Signs Vital Signs: Vital Signs Temp Pulse Resp BP Pulse Ox 09/11/24 09:30 80 160/66 H 09/11/24 09:00 76 140/61 09/11/24 08:46 80 143/65 H 09/11/24 08:11 98.5 F 82 18 145/63 H 09/11/24 08:00 80 09/11/24 08:00 98.1 F 81 16 136/47 L 97 09/11/24 04:17 83 09/11/24 04:00 98.6 F 87 16 140/47 L 96 09/11/24 00:00 98.4 F 86 16 145/54 H 98 09/11/24 00:00 82 09/10/24 20:00 77 09/10/24 20:00 98.6 F 83 16 140/45 L 96 09/10/24 16:00 69 09/10/24 16:00 98.4 F 71 18 124/39 L 98 09/10/24 12:00 74 09/10/24 12:00 98.4 F 70 18 123/40 L 99 Intake/Output Intake/Output: Intake & Output 09/08/24 09/09/24 09/10/24 09/11/24 23:59 23:59 23:59 23:59 Intake Total 300 1257 2490 1200 Output Total 600 2000 Balance -300 -743 2490 1200 Meds/Results Medications: Active Medications Generic Name Dose Route Start Last Admin Trade Name Freq PRN Reason Stop Dose Admin Acetaminophen 650 mg 09/06/24 15:40 09/07/24 04:43 Acetaminophen 325 Mg Tablet PO 650 mg Q4H PRN Administration Mild Pain (1-3) or Fever Hydrocodone Bitart/Acetaminophen 1 tab 09/07/24 17:47 09/10/24 00:23 Hydrocodone/Acetaminophen (*Crx) 5-325 Mg Tablet PO 1 tab Q4H PRN Administration Pain Rated 4-6 Allopurinol 100 mg 09/08/24 16:05 09/08/24 17:15 Allopurinol 100 Mg Tablet BY MOUTH 100 mg [id number] NICOLE Administration Amiodarone HCl 200 mg 09/09/24 09:00 09/10/24 09:35 Amiodarone Hcl 200 Mg Tablet BY MOUTH 200 mg DAILY NICOLE Administration Aspirin 81 mg 09/07/24 09:00 09/07/24 11:59 Aspirin 81 Mg Enteric Tablet PO 81 mg QAM NICOLE Administration Atorvastatin Calcium 80 mg 09/06/24 18:00 09/10/24 17:53 Atorvastatin 40 Mg Tablet PO 80 mg EVENING NICOLE Administration Atorvastatin Calcium 20 mg 09/09/24 09:00 09/10/24 09:35 Atorvastatin 20 Mg Tablet PO 20 mg DAILY NICOLE Administration Calcitriol 0.25 mcg 09/08/24 17:00 09/10/24 17:52 Calcitriol 0.25 Mcg Capsule PO 0.25 mcg BID NICOLE Administration Doxazosin Mesylate 4 mg 09/08/24 18:00 09/10/24 17:53 Doxazosin Mesylate 4 Mg Tablet PO 4 mg QPM NICOLE Administration Epoetin Elliot-epbx 20,000 units 09/11/24 18:51 Epoetin Elliot-Epbx 10,000 Units/Ml Vial IV PUSH 09/11/24 18:52 ONCE ONE Ferrous Sulfate 325 mg 09/09/24 09:00 09/10/24 09:35 Ferrous Sulfate [address] BY MOUTH 325 mg DAILY NICOLE Administration Furosemide 60 mg 09/08/24 17:00 09/10/24 17:52 Furosemide 20 Mg Tablet PO 60 mg BID NICOLE Administration Levofloxacin/Dextrose 500 mg in 100 mls @ 100 mls/hr 09/08/24 16:00 09/10/24 17:52 Levaquin 500 Mg/D5w 100 Ml IVPB 100 mls/hr Q48H NICOLE Administration Albumin Human 50 mls @ 999 mls/hr 09/07/24 06:52 Albutein IVPB 10/07/24 06:51 Q10M PRN HYPOTENSION Metoprolol Tartrate 25 mg 09/09/24 09:00 09/10/24 09:35 Metoprolol Tartrate 25 Mg Tablet PO 25 mg DAILY NICOLE Administration Morphine Sulfate 2 mg 09/06/24 15:40 09/07/24 17:05 Morphine Sulfate (*Crx) 2 Mg/Ml Inj IV PUSH 2 mg Q2H PRN Administration Pain Rated 7-10 Ondansetron HCl 4 mg 09/06/24 15:40 Ondansetron Inj 4 Mg/2 Ml Vial IV PUSH Q4H PRN Nausea Pantoprazole Sodium 40 mg 09/09/24 09:00 09/10/24 09:36 Pantoprazole 40 Mg Tablet PO 40 mg QAM NICOLE Administration Sodium Bicarbonate 650 mg 09/09/24 09:00 09/10/24 09:34 Sodium Bicarbonate Tab 650 Mg Tablet PO 650 mg DAILY NICOLE Administration Vitamin B Complex/Folic Acid 1 cap 09/09/24 09:00 09/10/24 09:35 Vitamin B Cmplx/Vit C/Folic Ac 1 Capsule PO 1 cap QAM NICOLE Administration Radiology Results: ITS Impressions Chest CTA 09/06/24 17:14 IMPRESSION: No pulmonary embolus. No thoracic aortic dissection. Large left-sided pleural effusion with adjacent compressive atelectasis. Thoracentesis Ultrasound 09/08/24 15:16 Impression: Successful ultrasound guided thoracentesis. Plan: Follow-up chest radiograph will be obtained. Chest X-Ray 09/10/24 16:02 IMPRESSION: Left basilar atelectasis versus pneumonia. Labs Labs: Laboratory Tests 09/11/24 05:22 09/11/24 05:22 Calcium 8.6 Total Bilirubin 0.5 AST 41 ALT 63 H Alkaline Phosphatase 204 H Total Protein 5.0 L Albumin 2.8 L
--- NOTE | 2024-09-11 11:24 | PC.NURSE ---
Patient went to dialysis at 0815.
[2024-09-11] MEDS: EPOETIN ALFA-EPBX 10,000 UNITS/ML VIAL 20000 UNITS IV PUSH (11:43)
--- NOTE | 2024-09-11 12:54 | PC.NURSE ---
Patient returned from dialysis 1245.
[2024-09-11] MEDS: METOPROLOL TARTRATE 25 MG TABLET PO (13:12)
[2024-09-11] MEDS: AMIODARONE HCL 200 MG TABLET BY MOUTH (13:12)
[2024-09-11] MEDS: SODIUM BICARBONATE TAB 650 MG TABLET PO (13:12)
[2024-09-11] MEDS: VITAMIN B CMPLX/VIT C/FOLIC AC 1 CAPSULE 1 CAP PO (13:13)
[2024-09-11] MEDS: PANTOPRAZOLE 40 MG TABLET PO (13:13)
[2024-09-11] MEDS: ATORVASTATIN 20 MG TABLET PO (13:13)
[2024-09-11] MEDS: FUROSEMIDE 20 MG TABLET 60 MG PO (13:13)
[2024-09-11] MEDS: calcitrioL 0.25 MCG CAPSULE PO (13:13)
[2024-09-11] MEDS: FERROUS SULFATE 325 MG TABLET DR BY MOUTH (13:14)
--- NOTE | 2024-09-11 14:11 | P.DS_ITS ---
DS: Admitting Diagnosis Discharge Date 09/11/2024 Admitting Diagnosis Chest pain DS: Discharge Diagnosis Discharge Diagnosis (1) Chest pain: Code(s): R07.9 - Chest pain, unspecified Status: Acute (2) Anemia: Qualifiers: Anemia type: unspecified type Qualified Code(s): D64.9 - Anemia, unspecified Code(s): D64.9 - Anemia, unspecified Status: Acute (3) ESRD on dialysis: Code(s): N18.6 - End stage renal disease; Z99.2 - Dependence on renal dialysis Status: Acute DS: Summary Hospital Course Hospital Course: 74-year-old male with past medical history of end-stage renal disease on dialysis presented to the ER on account of chest pain. Other was present at the bedside and she reported that patient has been having shortness of breath, shortness lightheadedness and chest pain for a couple weeks in our, he presented to [facility] where he was evaluated and was started on dialysis for end- stage renal disease and had blood transfusion. Patient was discharged about the about a week ago and he continues to have a chest pain. Describes chest pain as sharp, left-sided radiates to shoulder blade. At this encounter he denies any lightheadedness or shortness of breath, no vomiting no diarrhea no abdominal pain no focal symptoms. ER evaluation notable for temperature is 97.5?, pulse rate 59, respiratory 26, blood pressure 111/44, saturation 96% on room air. Labs notable for WBC 10.2, hemoglobin 7.2, INR is 1.7, BUN 105, creatinine 5.64. Chest x-ray showed left basilar atelectasis versus pneumonia. EKG showed a sinus bradycardia with right bundle-branch block. CT imaging was consulted in the ER reviewed patient on EKG, recommended aspirin Lipitor no heparin infusion a this time due to anemia. Patient is treated for the following conditions: Chest pain Resolved Patient had point tenderness Chest pain appears to be chest wall pain ECG no acute changes ECHO shows ejection fraction 55-60%, A1c, Lipid panel pending, troponin am Aspirin 81mg and Lipitor 80mg daily Cardiology following, and noted no Heparin infusion for now due to anemia Eliquis on hold due to anemia Large left-sided pleural effusion Thoracentesis on 09/08 / 0.6 L serous fluid was removed Pending fluid analysis Possible pneumonia Resolved Chest pain with Possible pneumonia on CXR S/P levofloxacin Blood and sputum cultures pending CTA chest No pulmonary embolus. No thoracic aortic dissection. Large left-sided pleural effusion with adjacent compressive atelectasis. Anemia Hb 7.2 patient was recently managed for pneumonia at [facility] Reviewed Iron panel which shows an deficiency anemia Reconciliation of home medication is pending Eliquis 5 mg p.o. b.i.d. on hold monitor H and H Underwent egd/colonoscopy about 1-2 months ago at [facility]- per daughter only inflammation in esophagus but no major reason to explain anemia GI consulted but no intervention Patient might benefit from Heme/Onc consult as OP ESRD with azotemia BUN 105, and cr 5.64 On Dialysis MTTF Nephrology consulted Status at Discharge Cognitive/behavioral status at discharge: Stable Time Spent with Patient Time attestation: Total time spent providing and/or coordinating discharge services: 45 minute Exam Narrative: General: alert and comfortable Eyes: EOMI, PERRLA ENNT External ears normal, Neck is supple, no masses, Respiratory systems: Clear to auscultation Cardiovascular S1, S2, normal rhythm, no murmur, rub, or gallop; no thrill or palpable murmurs on palpation. Gastrointestinal: soft, non-tender, and non-distended abdomen with no masses; BS present Skin: no rash, lesions, ulcerations, subcutaneous nodules or induration Musculoskeletal: no abnormality and no tenderness, normal ROM Neurologic: Alert and oriented x3, non focal Mental Status Exam: normal affect DS: Data Data Completed and Pending Completed studies during hospitalization: Pending at discharge 09/07/24 15:54 Cytology [PTH] Routine Labs on day of discharge: Labs from last 24 hours 09/11/24 05:22 WBC 9.8 RBC 2.53 L Hgb 7.7 L Hct 24.2 L MCV 95.7 MCH 30.4 MCHC 31.8 L RDW 17.2 H Plt Count 313 MPV 8.7 Sodium 132 L Potassium 4.2 Chloride 98 Carbon Dioxide 22 Anion Gap 12 BUN 102 H D Creatinine 5.87 H Estim Creat Clear Calc 10 Estimated GFR 9 L Glucose 109 Calcium 8.6 Total Bilirubin 0.5 AST 41 ALT 63 H Alkaline Phosphatase 204 H Total Protein 5.0 L Albumin 2.8 L Preliminary micro results at discharge 09/06/24 20:48 Blood Culture - Preliminary Blood 09/06/24 20:47 Blood Culture - Preliminary Blood Discharge Plan Discharge Attending physician on discharge: Hitesh Corley Consulting providers: Diana Ward; [place] Discharging Clinician: Hitesh Corley Anticipated Discharge Date/Time: 09/11/24 13:34 Patient Disposition: Home Activity: as tolerated Diet: as tolerated Discharge Instructions: Please follow up with PCP,Model Home Sales Greeter and Surveillance Monitor () in a week upon discharge. Patient Instructions: Antibiotic Form, Apixaban (By mouth), Thoracentesis (GEN), Suicide Prevention (DC) Patient Language: Welsh Stand Alone Forms: General Discharge Information Follow-up/Referrals: Iron Cunningham MD [Physician] - Diana Ward MD [Physician] - [place] MD [Physician] - Juanpablo,Chandler Liao DO [Primary Care Provider] - Discharge Medications: New atorvastatin 40 mg Tablet 80 mg PO EVENING Qty: 30 0RF aspirin 81 mg Tablet,Delayed Release (Dr/Ec) 81 mg PO QAM Qty: 30 0RF Continued furosemide 40 mg tablet 60 mg PO BID allopurinol 100 mg tablet See Rx Instructions .ROUTE .COMPLEX Patient Comments: PAtient takes MWF Rx Instructions: MWF; amiodarone 400 mg tablet 200 mg PO DAILY metoprolol tartrate 25 mg tablet 25 mg PO DAILY pantoprazole [Protonix] 40 mg tablet,delayed release (DR/EC) 40 mg PO QAM doxazosin [Cardura] 4 mg tablet 4 mg PO QPM ferrous sulfate [iron] 325 mg (65 mg iron) tablet 325 mg PO DAILY sodium bicarbonate 650 mg tablet 650 mg PO DAILY calcitriol 0.25 mcg capsule 0.25 mcg PO BID atorvastatin [Lipitor] 20 mg tablet 20 mg PO DAILY Dialyvite 800 800 mcg tablet,chewable 1 tablet PO DAILY Held Eliquis 5 mg tablet 5 mg PO Q12H Hold Instructions: Resume on 10/06/24. Please resume after discussing with your Tank Terminal Gauger/PCP. Holding due to low hemoglobulin Date of admission: 09/07/24 16:14 Primary Care Provider: Juanpablo,Chandler V. Admitting Provider: Rox Chung Attending physician on admission: Rox Chung Condition: Stable
[2024-09-13 15:18] LABS: Erythropoietin (EPO) 76.6 mIU/mL (2.6-18.5)
[2024-09-15 11:48] LABS: Amylase, Pleural Fluid 13 U/L; Glucose Pleural Fluid 86 mg/dL; Total Protein Pleural Fluid <3.0 g/dL
== END 2024-09-11 14:32 | disposition home or self-care (01) | DRG 193 ==
LOC: ANHED 15:45 → ANHIMU 18:43 → ANH3MED 09-07 11:19
PROVIDERS: Emergency Medicine; Internal Medicine Nephrology; Nurse Practitioner Family; Admitting Provider Internal Medicine; Emergency Provider Family Medicine; PCP Family Medicine; Visit Provider General Practice
DX: J18.9 Pneumonia, unspecified organism (principal); N18.6 End stage renal disease; J90 Pleural effusion, not elsewhere classified; I31.39 Other pericardial effusion (noninflammatory); J98.11 Atelectasis; D64.9 Anemia, unspecified; E11.22 Type 2 diabetes mellitus with diabetic chronic kidney disease; N18.9 Chronic kidney disease, unspecified; I45.10 Unspecified right bundle-branch block; Z99.2 Dependence on renal dialysis; R00.1 Bradycardia, unspecified
CPT/HCPCS: 32555; 36415; 36430; 71045; 71275; 80053; 82042; 82150; 82668; 82728; 82945; 83540; 83550; 83615; 83690; 83735; 83986; 84157; 84484; 85025; 85027; 85046; 85610; 85730; 86706; 86850; 86900; 86901; 86923; 87040; 87340; 87641; 88108; 88305; 89051; 93005; 93306; 96361; 96365; 96366; 96375; 96376; 99285; A9270; G0257; G0378; J1956; J2270; J7030; J7050; P9016; P9047; Q5105; Q9967

== ENCOUNTER 2024-10-16 12:19 | Inpatient (IN) | payer MEDICARE, MEDICAID, SELFPAY ==
[2024-10-16] VITALS (14 sets, daily range): BP systolic 118–141; BP diastolic 35–50; PULSE 66–82; RESP 14–20; TEMP 36.2–36.8; O2SAT 95–100; BMI 24.8
--- NOTE | ~2024-10-16 | NM_ITS ---
EXAMINATION: NM GI bleeding DATE: 10/20/2024 12:23 INDICATION: Gastrointestinal bleed TECHNIQUE: 21.5 mCi Tc 99m in vitro labeled red cells administered intravenously. Scintigraphic imag es of the abdomen were obtained through one hour. FINDINGS: No pattern of abnormal activity is seen in the abdomen or pelvis to suggest gastrointestina l hemorrhage. IMPRESSION: 1. No scintigraphic evidence for active gastrointestinal bleeding. Reviewed, dictated and finalized at location A.
--- OUTSIDE RECORDS SUMMARY | 2024-10-16 12:21 | XMS_ITS | Encounter Summary ---
Author Organization [facility] Address [address] [place] [address] Care Team Providers Care Gauge Operator Name Role Phone Chandler Geronimo DO Primary Care Provide r Encounter Details Date Type Department Care Team (Late st Contact Info) Description 07/28/2024 [employer] Message Enc [facility] [address] [phone] Filippo, [facility] Provider Orders Social History Tobacco Use Types Packs/Day Years Used Date Smoking Tobacco: Never Smokeless Tobacco: Never Alcohol Use Standard Drinks/Week Comments Never 0 (1 standard drink = 0.6 oz pur e alcohol) [facility] Utilities Answer Date Recorded In the past 12 months has [facility] [employer], oil, or water [employer] threatened to shut off services in your [...] declined 10/10/2022 How often do you attend worship or advent serv ices? Patient declined 10/10/2022 Do you belong to any clubs o r organizations such as worship groups, unions, fraternal or athletic groups, or [...] Recorded Patient Health Questionnaire-2 Score 0 07/26/2024 [facility] - Occupational [...] place to sleep or slept in a half-way (including now)? No 10/10/2022 Housing Stability Vital [...] time in the past 12 m [facility], were you homeless or living in a half-way (including now)? 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 Author Patient will return to prior living situation and remain independent in ADLs upon discharge from hospital General No Aline Krishna RN Health - patient able to perform [...] documented as of this encounter Care Teams Gauge Operator Relationship Specialty Start Date End Date Chandler Geronimo DO [address] [place] [phone] PCP - General FAMILY PRACTICE 05/29/21 documented as of this encounter
--- OUTSIDE RECORDS SUMMARY | 2024-10-16 12:22 | XMS_ITS | Clinical Summary ---
Author Organization [facility] Wong johnston [facility] Address [address] [place] [address] Care Team Providers Care Button Tacker Name Role Phone Unavailable Primary Care Provider Unavailabl e Social History Tobacco Use Types Packs/Day Years Used Date Smoking Tobacco: Never Assessed Sex and Gender Information Value Date Recorded Sex Assigned at Not on file Legal Sex Male 12:30 PM CDT Gender Identity Not on file Sexual Orientation Not on file Plan of Treatment Upcoming Encounters Date Type Department Care Team (Late st Contact Info) Description 12/16/2024 3:00 PM CDT Office Visit [facility] Oncology and Hematology - [address] [facility] [address] [place] [address] Iron Cunningham MD [address] [facility] [address] [place] [address] Health Maintenance Due Date Last Done Comments DTAP/TDAP/TD VACCINES (1 - Tdap) 12/31/1966 PNEUMOCOCCAL VACCINE 50+ YEARS (1 of 1 - PCV) 12/31/18 98 ZOSTER VACCINE (1 of 2) 12/31/1997 RSV VACCINE (60+ or ) (1 - 1-dose 75+ series) 12/31/2022 INFLUENZA VACCINE (#1) 2024
--- OUTSIDE RECORDS SUMMARY | 2024-10-16 12:22 | XMS_ITS | Encounter Summary ---
Author Organization [facility] Address [address] [place] [address] Care Team Providers Care Sports Development Officer Name Role Phone Chandler Geronimo DO Primary Care Provide r Encounter Details Date Type Department Care Team (Late st Contact Info) Description 01/10/2022 Therapy Plan [facility] Infusion Services [address] [place] [id number] David Hamilton MD [address] [facility], [address] [id number] Social History Tobacco Use Types Packs/Day Years [...] Sex Assigned at Male 07/22/2024 2:00 PM ACCOUNTING CONSULTANT Legal Sex Male 2:48 PM ACCOUNTING CONSULTANT Gender Identity Not on file Sexual Orientation [...] Assessment Author Status No 06/13/2021 2:44 AM ACCOUNTING CONSULTANT Activ e * RETIRED Are you blind or do you have serious difficulty seeing, even when wearing glasses? Answer Date of Assessment Author Status No 06/13/2021 2:44 AM ACCOUNTING CONSULTANT Activ e * Do you have serious [...] discharge from hospital General Aline Russell RN documented as of this encounter Visit Diagnoses Not on filedocumented in this encounter Additional Health Concerns Assessment Noted Time PHQ-9 Depression Total Score: 0 08/29/19 22 2:52 PM CDT documented as of this encounter Care Teams Sports Development Officer Relationship Specialty Start Date End Date Chandler Geronimo DO [address] [place] [phone] PCP - General FAMILY PRACTICE 05/29/21 documented as of this encounter
--- OUTSIDE RECORDS SUMMARY | 2024-10-16 12:22 | XMS_ITS | Encounter Summary ---
Author Organization [facility] Address [address] [place] [address] Care Team Providers Care Faro Dealer Name Role Phone Chandler Geronimo DO Primary Care Provide r Encounter Details Date Type Department Care Team (Late st Contact Info) Description 10/21/2022 Therapy Plan [facility] Infusion Services [address] [place] [id number] David Hamilton MD [address] [facility] [place] [phone] Social History Tobacco Use Types Packs/Day Years [...] How often do you attend yarsani or oriental orthodox serv ices? Patient declined 10/10/2022 Do you [...] Recorded Patient Health Questionnaire-2 Score 0 10/21/2022 [facility] - [...] a long term (including now)? No 10/10/2022 Sex and Gender Information Value Date Recorded Sex Assigned at Male 07/22/2024 2:00 PM CERTIFIED NOVELL ADMINISTRATOR Legal Sex Male 2:48 PM CERTIFIED NOVELL ADMINISTRATOR Gender Identity Not on file Sexual Orientation [...] Assessment Author Status No 10/10/2022 9:39 PM BIAT Beena Scherer RN Active * Do you have difficulty dressing or bathing? Answer Date of Assessment Author Status No 10/10/2022 9:39 PM CDT Beena Scherer RN Active * Because of a physical, mental, or emotional condition, do you have difficulty doing errands alone such as visiting a doctor's office or shopping? Answer Date of Assessment Author Status No 10/10/2022 9:39 PM BIAT Beena Scherer RN Active * Over the past 2 weeks, how often have you been bothered by any of the following problems? Question Answer Date of Assessment Author Status Little interest or pleasure in doing things Not at all 10/21/2022 3:33 PM CDT Christiana Goel LPN Active Feeling down, depressed, or hopeless Not at all 10/21/2022 3:33 PM CDT Christiana Goel LPN Activ e Patient Health Questionnaire-2 Score 0 10/21/2022 3:33 PM CDT Christiana Goel LPN Active documented as of this encounter Mental Status * Because of a physical, mental, or emotional condition, do you have serious difficulty concentrating, remembering, or making decisions? Answer Entry Date Author Status No 10/10/2022 9:39 PM BIAT Beena Scherer RN Active documented in this encounter Plan of Treatment Not on file documented as of this encounter Goals Goal Patient Goal Type Associated Problems Recent Progress Patient-Stated? Author Patient will return to prior living situation and remain independent in ADLs upon discharge from hospital [facility] Aline Russell RN Health - patient able to perform ADLs independently Lifestyle No El Vaughn RN documented as of this encounter Visit Diagnoses Diagnosis Iron deficiency anemia- Primary Iron deficiency anemia, unspecified documented in this encounter Additional Health Concerns Assessment Noted Time PHQ-9 Depression Total Score: 0 03/14/20 3:10 PM CDT documented as of this encounter Care Teams Faro Dealer Relationship Specialty Start Date End Date Chandler Geronimo DO [address] [place] [phone] PCP - General FAMILY PRACTICE 05/29/21 documented as of this encounter
--- OUTSIDE RECORDS SUMMARY | 2024-10-16 12:22 | XMS_ITS | Continuity of Care Document ---
Author Organization [employer] [place] Address [address] [place] [address] Phone Care Team Providers Care Edger Tailer Name Role Phone Faustinostone Chandler ALEX Unavailable Unava ilable Allergies, Adverse Reactions, Alerts Substance Reaction Status Criticality No Known Allergies Active No Inform ation Medications Medication Instructions Dosage Effective Dates (start - stop) Status Comments aspirin 81 mg tablet,delayed release take 1 tablet by oral route every morning - Active atorvastatin 20 mg tablet take 1 tablet by oral route every day 20 MG - Active doxazosin 2 mg tablet take 2 tablet by oral route every day at bedtime - Active furosemide 80 mg tablet take 1 1/2 tabs by oral route twice a day - Active metoprolol tartrate 25 mg tablet take 1 tablet by oral route every day 25 MG - Active Vitamin D3 25 mcg (1,000 unit) capsule take 1 by Oral route 2 times every day 1 - Active valacyclovir 500 mg tablet take 1 tablet by oral route after dialysis - Active Eliquis 5 mg tablet take 1 tablet by oral route 2 times every day 5 MG - Active amiodarone 200 mg tablet take 1 tablet by oral route every day 200 MG - Active Renal Caps 1 mg capsule take 1 capsule by oral route every day 1.00 capsule - Active sodium bicarbonate 650 mg tablet take 1 tablet by oral route daily - Active allopurinol 100 mg tablet take 1 tablet by oral route every Mon, Fri, and Fri after hemodialysis - Active calcitriol 0.25 mcg capsule take 2 capsules by oral route every day - Active pantoprazole 40 mg tablet,delayed release take 1 tablet by oral route every day 40 MG - Active FERROUS SULFATE 324MG EC TABS RED TAKE 1 TABLET BY MOUTH ONCE DAILY - Active Alcohol Pads Use pad to cleanse skin before checking blood sugar and before administering insulin - Active Unifine Pentips Maxflow 30 gauge x 3/16 needle Use with Lantus Solostar pen - Active Contour Next EZ Meter kit Use as directed to check blood sugar - Active Contour Next Test Strips place 1 strip into glucometer as directed to test blood sugar 4 times a day - Active lancets 30 gauge Use lancet to test blood sugar 4 times a day - Active Sharps Container - Active atorvastatin 40 mg tablet take 1 tablet by oral route every day 40 MG - No Longer Active Retacrit 10,000 unit/mL injection solution inject 1mL by subcutaneous route three times a week - No Longer Active calcium 500 mg (as calcium carbonate 1,250 mg) tablet Take 1 tablet by oral route three times a day No Longer Active lidocaine 4 % topical patch Place 1 patch onto skin daily. Remove and discard patch within 12 hrs. - No Longer Active metoprolol tartrate 25 mg tablet take 1 tablet by oral route 2 times every day 25 MG No Longer Active furosemide 40 mg tablet Take 3 tablets by mouth 2 times a day, 3 days a week. Take 3 tablets 2 times a day on non-dialysis days Friday, Friday, , and Friday. - No Longer Active atorvastatin 20 mg tablet TAKE 1 TABLET BY MOUTH EVERY DAY - No Longer Active Vitamin D3 25 mcg (1,000 unit) capsule take 1 by Oral route once 1 - No Longer Active doxazosin 2 mg tablet take 2 tablet by oral route every day 4 MG - No Longer Active Procedures Procedure Date [facility]RG MED/CURRENT MED MERGE Transitional Care- First 7 Days Of Disch arge SYST BP LT 130 MM HG DIAST BP < 80 MM HG Kept Appointment No Charge Encounter Aug [facility] MED/CURRENT MED MERGE [facility] MED/CURRENT MED MERGE Transitional Care- First 7 Days Of Disch arge BODY MASS INDEX DOCD SYST BP LT 130 MM HG DIAST BP < 80 MM HG FALL RISK ASSESSMENT DOC'D PRES/ABSN URINE INCON ASSESS Pt inelig neg scrn depres PNEUMOVAX ADM MEDICARE Pneumococcal Conjugate Vaccine (PCV20) D Admin influenza virus vac INFLUENZA VACCINE, 0.5mL DOSAGE; FLUZONE OFFICE [id number] BODY MASS INDEX DOCD SYST BP LT 130 MM HG DIAST BP < 80 MM HG BASIC METABOLIC PANEL(BMP) HEMOGLOBIN A1C HGA1C, GLYCO LIPID PANEL MICROALBUMIN, QN (URINE) CREATININE, (U-R) PSA, TOTAL URINALYSIS W MICROSCOPIC (UA) ROUTINE VENIPUNCTURE [place] OFFICE [id number] Visit Complexity Inherent To E/M 2023 BODY MASS INDEX DOCD SYST BP LT 130 MM HG DIAST BP < 80 MM HG FALL RISK ASSESSMENT DOC'D PRES/ABSN URINE INCON ASSESS Pt inelig neg scrn depres Admin influenza virus vac FLU VACC 4 BINH 0.5mL DOSAGE OFFICE [id number] BODY MASS INDEX DOCD SYST BP LT 130 MM HG DIAST BP < 80 MM HG No Show Appt Charge DSCHRG MED/CURRENT MED MERGE OFFICE [id number] BODY MASS INDEX DOCD SYST BP LT 130 MM HG DIAST BP < 80 MM HG Transitional Care- First 7 Days Of Disch arge CBC, INC PLATELETS AND DIFFERENTIAL COMPREHEN METABOLIC PANEL CMP HEMOGLOBIN A1C HGA1C, GLYCO LIPID PANEL MICROALBUMIN, QN (URINE) CREATININE, (U-R) PSA, TOTAL, SCREENING MEDICARE ONLY PARATHYROID HORMONE (PTH) VITAMIN D, 25-HYDROXY ROUTINE VENIPUNCTURE IL OFFICE [id number] BODY MASS INDEX DOCD SYST BP GE 130 - 139MM HG DIAST BP < 80 MM HG OFFICE [id number] BODY MASS INDEX DOCD SYST BP GE 130 - 139MM HG DIAST BP < 80 MM HG Pt inelig neg scrn depres FALL RISK ASSESSMENT DOC'D PRES/ABSN URINE INCON ASSESS OFFICE [id number] BODY MASS INDEX DOCD SYST BP LT 130 MM HG DIAST BP < 80 MM HG HEMOGLOBIN A1C HGA1C, GLYCO URINALYSIS, REFLEX (UA) ROUTINE VENIPUNCTURE OFFICE [id number] BODY MASS INDEX DOCD SYST BP LT [...] DIAST BP < 80 MM HG OFFICE [id number] COMPREHEN METABOLIC PANEL CMP 1 HEMOGLOBIN A1C HGA1C, GLYCO LIPID PANEL ROUTINE VENIPUNCTURE Admin influenza virus vac FLU VACC 4 BINH 0.5mL DOSAGE OFFICE [id number] BODY MASS INDEX DOCD SYST BP GE 130 - 139MM HG DIAST BP < 80 MM HG FALL RISK ASSESSMENT DOC'D PRES/ABSN URINE INCON ASSESS Pt inelig neg scrn depres CBC, INC PLATELETS AND DIFFERENTIAL COMPREHEN METABOLIC PANEL CMP LIPID PANEL PSA, TOTAL, SCREENING MEDICARE ONLY ROUTINE VENIPUNCTURE OFFICE [id number] BODY MASS INDEX DOCD SYST BP GE 130 - 139MM HG DIAST BP < 80 MM HG HEMOGLOBIN A1C HGA1C, GLYCO CBC, INC PLATELETS AND DIFFERENTIAL COMPREHEN METABOLIC PANEL CMP 9 HEMOGLOBIN A1C HGA1C, GLYCO LIPID PANEL ROUTINE VENIPUNCTURE OFFICE [id number] BODY MASS INDEX DOCD SYST BP LT [...] Diagnoses Date Provider Providers Copied on Encounter Transitional Care- First 7 Days Of Discharge [facility], [address], [place], [place], [address] , [place] tel:[phone] [facility] Follow-Up (chief complaint)Chr onic Conditions (chief complaint) Body mass index [BMI] 24.0-24.9, adultHyperte nsive chronic kidney disease with stage 5 chronic kidney disease or end stage renal diseaseChron ic kidney disease, stage 5Dependence on renal dialysisHist ory of pneumoniaHer pes zoster with other complication Paroxysmal atrial fibrillation 5 Faustino Arteaga. [address], [place], [address], [place]. tel:[phone] Referring Provider: Chandler castro, [address] [place] [address], [address] . tel:[phone] [facility], [address], [place], [place], [address] , [place] tel: [phone] [facility] No Information 5 Faustino Arteaga. [address] [place] [address], [id number], . tel:[phone] [facility], [address], [place], [place], [address] , [place] tel: [phone] [facility] No Information 5 Faustino Arteaga. [address] [place] [address], [id number], [place]. tel:[phone] Referring Provider: Chandler castro, [address] [place] [address], [address] . tel:[phone] [facility], [address], [place], [place], [address] , [place] tel: [phone] [facility] No Information 5 Faustino Arteaga. [address] [place] [address], [id number], [place]. tel:[phone] [facility], [address], [place], [place], [address] , tel: [phone] [facility] No Information 5 Faustino Arteaga. [address] [place] [address], [id number], [place]. tel:[phone] Transitional Care- First 7 Days Of Discharge [facility], [address], [place], [place], [address] , [place] tel: [phone] [facility] Follow-Up (chief complaint)Oth er (chief complaint)Chr onic Conditions (chief complaint) Chronic kidney disease, stage 5HTN w/ chronic kidney disease stage 5Renal osteodystrop hyAnemia in other chronic diseases classified elsewhereTyp e 2 diabetes mellitus with other diabetic kidney complication Mixed hyperlipidem iaAtheroscle rosis of aortaBody mass index [BMI] 24.0-24.9, adultChronic diastolic (congestive) heart failure 5 Faustino Arteaga. [address] [place] [address], [id number], [place]. tel:[phone] Referring Provider: Chandler castro, [address] [place] [address], [address] . tel:[phone] OFFICE KYCFK-ACP-CFC MAXINE [facility], [address], [place], [place], [address] , [place] tel: [phone] [facility] 6 month F/U (chief complaint)Chr onic Conditions [...] complication Encounter for immunization 4 Faustino Arteaga. [address] [place] [address], [id number], [place]. tel:[phone] Referring Provider: Chandler castro, [address] [place] [address], [address] . tel:[phone] [facility], [address], [place], [place], [address] , [place] tel: [phone] [facility] No Information 4 Faustino Arteaga. [address] [place] [address], [id number], [place]. tel:[phone] [facility], [address], [place], [place], [address] , [place] tel: [phone] [facility] No Information 4 Fozia Wiley. [address] [address], [place], [place], [address], [place]. tel:[phone] Referring Provider: Chandler castro, [address] [place] [address], [address] . tel:[phone] OFFICE ZORJC-JFQ-VHE [facility], [address], [place], [place], [address] , [place] tel: [phone] [facility] 6 month F/U (chief complaint)Chr onic Conditions [...] malignant neoplasm of colon 4 Faustino Arteaga. [address] [place] [address], [id number], [place]. tel:[phone] Referring Provider: Chandler castro, [address] [place] [address], [address] . tel:[phone] OFFICE IUWAJ-IMF-CFO [facility], [address], [place], [place], [address] , [place] tel: [phone] [facility] 6 mo f/u (chief complaint)Chr onic Conditions (chief complaint) Body mass index [BMI] 25.0-25.9, adultAntineu trophilic cytoplasmic antibody [ANCA] vasculitisCh ronic kidney disease, stage 4 (severe)Hype rtensive chronic kidney disease with stage 1 through stage 4 chronic kidney disease, or unspecified chronic kidney diseaseType 2 diabetes mellitus with other diabetic kidney complication Immunodefici ency due to drugsEncount er for immunization 3 Faustino Arteaga. [address] [place] [address], [id number], [place]. tel:[phone] Referring Provider: Chandler castro, [address] [place] [address], [address] . tel:[phone] [facility], [address], [place], [place], [address] , [phone] [facility] No Information 3 Faustino ritter Chandler. [address] [place] [address], [id number], [place]. tel:[phone] Referring Provider: Chandler castro, [address] [place] [address], [address] . tel:[phone] [facility], [address], [place], [place], [address] , tel:[phone] [facility] Hyperkalemia 3 Nelly Dejesus. [address] [place] [address], [address], [place]. tel:[phone] OFFICE DBCVH-ARL-NMU P [facility], [address], [place], [place], [address] , tel:[phone] [facility] Follow-Up (chief complaint)Chr onic Conditions (chief [...] heumatic mitral valve regurgitatio n 3 Nelly Dejesus. [address] [place] [address], [address], . tel:[phone] Referring Provider: Chandler castro, [address] [place] [address], [address] . tel:[phone] [facility], [address], [place], [place], [address] , [place] tel: [phone] [facility] No Information 3 Fozia Mckeonn. [address] [address], [place], [place], [address], [place]. tel:[phone] Referring Provider: Chandler castro, [address] [place] [address], [address] . tel:[phone] OFFICE YLUHT-RIR-NIL [facility], [address], [place], [place], [address] , [place] tel: [phone] [facility] Patient encounter (chief complaint)oth er (chief complaint)Chr onic Conditions (chief complaint) ANCA associated vasculitisCh ronic kidney disease, stage 4 (severe)Ilene l osteodystrop hyAnemia in other chronic diseases classified elsewhereTyp e 2 diabetes mellitus with other diabetic kidney complication Mixed hyperlipidem iaAtheroscle rosis of [facility] for screening for malignant neoplasm of prostateBody mass index [BMI] 28.0-28.9, adultHyperte nsive chronic kidney disease with stage 1 through stage 4 chronic kidney disease, or unspecified chronic kidney disease 3 Faustino Arteaga. [address] [place] [address], [id number], [place]. [phone] Referring Provider: Chandler castro, [address] [place] [address], [address] . tel:[phone] OFFICE TWGRB-NYP-QEW [facility], [address], [place], [place], [address] , [place] tel: [phone] [facility] Patient encounter (chief complaint)oth er (chief complaint)Chr onic Conditions (chief complaint) Body mass index [BMI] 28.0-28.9, adultChronic kidney disease, stage 4 (severe)Ilene l osteodystrop hyType 2 diabetes mellitus with other diabetic kidney complication Encounter for screening for malignant neoplasm of prostate 2 Faustino Arteaga. [address] [place] [address], [id number], [place]. tel:[phone] Referring Provider: Chandler castro, [address] [place] [address], [address] . tel:[phone] OFFICE KTNCN-ZRB-LFL [facility], [address], [place], [place], [address] , [place] tel: [phone] [facility] other (chief complaint)Chr onic Conditions (chief complaint) Body mass index [BMI] 27.0-27.9, adultNephrit ic syndrome w/ diffuse crescentic glomerulonep hritisChroni c kidney disease, stage 5Long term (current) use of insulinType 2 diabetes mellitus w/ diabetic kidney complication Immunosuppre ssionMixed hyperlipidem ia 2 Faustino Arteaga. [address] [place] [address], [id number], [place]. tel:[phone] Referring Provider: Chandler castro, [address] [place] [address], [address] . tel:[phone] [facility], [address], [place], [place], [address] , [place] [phone] [facility] No Information 2 Faustino Arteaga. [address] [place] [address], [id number], [place]. tel:[phone] OFFICE UUFCM-UKR-RWY [facility], [address], [place], [place], [address] , [place] tel:[phone] [facility] Crescentic glomeruloneph ritis (chief complaint)His tory of COVID-19 (chief complaint)Hyp ertensive renal disease (chief complaint)Oth er (chief complaint)Chr onic Conditions (chief complaint) Body mass index [BMI] 27.0-27.9, adultType 2 diabetes mellitus w/ diabetic kidney complication snf (current) use of insulinChron ic kidney disease, stage 5Weight lossHistory of hematuriaRen al osteodystrop hyNephritic syndrome w/ diffuse crescentic glomerulonep hritisAthero sclerosis of aorta 2 Faustino Arteaga. [address] [place] [address], [place], [place], [address], [place]. tel:[phone] Referring Provider: Chandler castro, [address] [place] [address], [place], [address] . tel:[phone] Transitional Care- First 7 Days Of Discharge [facility], [address], [place], [place], [address] , tel: [phone] [facility] Follow-Up (chief complaint)oth er (chief complaint)Chr onic Conditions (chief complaint) Body mass index [BMI] 30.0-30.9, adultAKI (acute kidney injury)Hyper tensive renal diseaseType 2 diabetes mellitus w/ diabetic kidney complication Crescentic glomerulonep hritisImmuno suppressionH istory of COVID-19Chro emmett obstructive pulmonary disease, unspecified COPD type 2 Faustino Arteaga. [address] [place] [address], [id number], [place]. tel:[phone] Referring Provider: Chandler castro, [address] [place] [address], [place], [address] . tel:[phone] [facility], [address], [place], [place], [address] , [place] tel: [phone] [facility] Exposure to COVID-19 virus 2 Faustino Arteaga. [address] [place] [address], [id number], [place]. tel:[phone] Referring Provider: Chandler castro, [address] [place] [address], [place], [address] . tel:[phone] Transitional Care- First 7 Days Of Discharge [facility], [address], [place], [place], [address] , tel: [phone] [facility] Follow-Up (chief complaint)Chr onic Conditions (chief complaint) Type 2 diabetes mellitus w/ diabetic kidney complication LEANDRO (acute kidney injury)Hyper tensive renal diseaseBody mass index [BMI] 28.0-28.9, adultAtheros clerosis of aortaAtheros clerotic heart disease of rincon coronary artery without angina pectorisMass of lingula of lungHemoptys isHematuria, unspecified type 2 Faustino Arteaga. [address] [place] [address], [id number], [place]. tel:[phone] Referring Provider: Chandler castro, [address] [place] [address], [place], [address] . tel:[phone] OFFICE ZPHIX-TYN-UOG [facility], [address], [place], [place], [address] , tel: [phone] [facility] Follow-Up (chief complaint)Tel ehealth (chief complaint)Chr onic Conditions (chief complaint) Mixed hyperlipidem iaType 2 diabetes mellitus w/ diabetic kidney complication Gastroesopha geal reflux disease without esophagitisA KI (acute kidney injury) 1 Faustino Arteaga. [address] [place] [address], [place], [place], [address], [place]. [phone] Referring Provider: Chandler castro, [address] [place] [address], [place], [address] . tel:[phone] OFFICE SUILQ-DTK-FFE [facility], [address], [place], [place], [address] , tel: [phone] [facility] acute visit (chief complaint)Chr onic Conditions (chief complaint) Body mass index [BMI] 32.0-32.9, adultPrediab etesAtherosc lerosis of aortaBalanit isEncounter for immunization 1 Faustino Durantrick. [address] [place] [address], [place], [place], [address], [place]. tel:[phone] Referring Provider: Chandler castro, [address] [place] [address], [place], [address] . 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 [address] [place] [address], [place], [place], [address], [place]. tel:[phone] Referring Provider: Chandler castro, [address] [place] [address], [place], [address] . tel:[phone] [facility], [address], [place], [place], [address] , [place] tel: [phone] [facility] No Information 1 Faustino Arteaga. [address] [place] [address], [place], [address], [place]. [phone] [facility], [address], [place], [place], [address] , [place] tel: [phone] [facility] Prediabetes 0 Yolis Soria. [address], [place], [place], [address], [place]. [phone] OFFICE SWLVM-DPN-LIP ANDED [facility], [address], [place], [place], [address] , [place] tel: [phone] [facility] Chronic Conditions (chief complaint)12 month follow up (chief complaint) Atherosclero sis of aortaChronic obstructive pulmonary disease, unspecifiedA bnormal finding on diagnostic imaging of liver Yolis Soria. [address], [place], [place], [address], [place]. tel:[phone] Referring Provider: Yang Lagos, [address], [place], [address] . tel:[phone] [employer] [facility], [address], [place], [place], [address] , [place] tel: [phone] [facility] Liver mass Yolis Soria. [address] [employer], [place], [place], [address], [place]. tel:[phone] [employer] [facility], [address], [place], [place], [address] , [place] tel: [phone] [facility] Epigastric pain Yolis Soria. [address] [employer], [place], [place], [address], [place]. tel:[phone] Referring Provider: Yang Lagos, [address] [employer] [address], [place], [address] . tel:[phone] [employer], [address], [place], [place], [address] , [place] tel: [phone] [facility] Atherosclero sis of aortaChronic obstructive pulmonary disease, unspecifiedP rediabetesBe nign neoplasm of colon, unspecified 8 Yolis Soria. [address] [employer], [place], [place], [address], [place]. tel:[phone] Referring Provider: Yang Lagos, [address], [place], [address] . tel:[phone] [employer], [address], [place], [place], [address] , [place] tel: [phone] [facility] Ingrown toenail 7 Yolis Soria. [address], [place], [place], [address], . tel:[phone] [facility] [address], [place], [place], [address] , tel: [phone] [facility] Ingrown toenail 7 Yolis Soria. [address], [place], [place], [address], [place]. tel:[phone] Referring Provider: Yang Lagos, [address], [place], [address] . tel:[phone] [facility] [address], [place], [place], [address] , tel: [phone] [facility] Chronic obstructive pulmonary disease, unspecified COPD typeTubular adenoma Mar- 7 Yolis Soria. [address], [place], [address], [place]. tel:[phone] Referring Provider: Yang Lagos, [address], [place], [address] . tel:[phone] [facility] [address], [place], [place], [address] , tel: [phone] [facility] Abnormal levels of other serum enzymes 6 Yolis Soria. [address], [place], [place], [address], [place]. tel:[phone] Referring Provider: Yang Lagso, [address], [place], [address] . tel:[phone] [facility] [address], [place], [place], [address] , tel:[phone] [facility] Tubular adenomaChron ic obstructive pulmonary disease, unspecified COPD type Sep-2 6 Yolis Soria. [address], [place], [place], [address], . tel:[phone] Referring Provider: Yang Lagos, [address], [place], [address] . tel:[phone] [facility], [address], [place], [place], [address] , tel: [phone] [facility] Tubular adenoma 6 Yolis Soria. [address], [place], [place], [address], . tel:[phone] [facility], [address], [place], [place], [address] , tel: [phone] [facility] Shortness of breathNon morbid obesity, unspecified obesity typeMidline low back pain without sciaticaChro emmett obstructive pulmonary disease, unspecified COPD typePrediabe tesPrediabet es 6 Yolis Soria. [address], [place], [place], [address], . tel:[phone] Referring Provider: Yang Lagos, [address], [place], [address] . tel:[phone] Family History Family Member Type Diagnosis Age At Onset No Information Immunizations Vaccine Date Status Comments Fluzone Trivalent, split virus, 0.5mL dosage administered Source: New Immuniza tion Record Pneumococcal conjugate PCV20 administered Source: New Immunization Record Fluzone Quad, split virus, 0.5mL dosage administered Source: New Immuniza tion Record Fluzone High-Dose, high dose , preservative free administered Source: Other Josh chun Pfizer (Diluent Reconstitute d) COVID19 Vaccine, 0.3mL per dose, 2 doses, administered 21 days apart administered Source: Other [facility] Fluzone Quad, split virus, 0.5mL dosage administered Source: New Immuniza tion Record Pfizer-BioNTAttentio COVID19 Vaccine, 0.3mL per dose, 2 doses, administered 21 days apart administered Note: Az erickson ; Source: Other Provider [employer] COVID19 Vaccine, 0.3mL per dose, 2 doses, administered 21 days apart administered Note: Az erickson ; Source: Other Provider Pneumococcal conjugate PCV 13 administere d Source: New Immunization Record Tdap administered Source: New Imm unization Record Payers Payer name Insurance type Covered republican ID Authoriza eddie(s) [facility]NA [facility] [id number] [employer] MB [id number] [employer] MB [id number] [employer] MB [id number] [employer] MB [id number] [employer] MB [id number] [employer] MB [id number] Social History Type Description Quantity Date Captured Comments Alcohol Use Details No Caffeine Use Details tea 1 cup per day Tobacco Use Status Ex-cigarette smoker 025 Smoking Status Former smoker Smoking Tobacco Use Details Cigarette: Age Started: 14, Age Stopped: 62 Cigarette: No Details Available Sex Male Vital Signs Date / Time: Height Weight BMI Pulse Rate Blood Pressure Temperature Respiratory Rate Body Surface Area Head Circumference Head Circ. Percentile Wt./Isaias. Percentile BMI percentile Pulse Ox Inhaled Ox 12:10 PM 69.00 in 74.026 kg (163.20 lbs) 24.1 0 kg/m eter (2) 75 /min 126/46 mm[Hg] 98.10 F 1.90 meter(2) 94 % Chief Complaint And Reason For Visit From encounter dated '09/14/2024 11:56'. Hospital Follow-Up (chief complaint). Description: The patient was seen today for a hospital follow-up visit, after being discharged on 09/11/2024. Details regarding this most recent admission include: Patient seen for hospital follow- up.Patient comes in with daughter Jeison for follow-up.Patient went to [place] emergency room after having chest pain on 09/07. Was found to have pneumonia and was treated for this. Unfortunately patient had significant anemia which did require transfusion while in the hospital. Eliquis was stopped, was recently diagnosed with paroxysmal atrial fibrillation and a recent hospitalization. Patient is also been recently started on hemodialysis. Patient was recommended to follow-up with hematology to discuss anticoagulation given anemia, of note patient has been on EPO infusions for years. Patient was cleared for discharge home on 09/11Since dischargeNo longer has chest painDenies shortness of breath, dizzinessHas swelling of lower extremities Daughter will be scheduling appt with hematology. Eliquis on hold until seen by hematology.-Headache x5 daysThrobbing sensation of left eye Denies N/VHearing and vision has diminished since starting dialysis Treated with Tylenol with no relief. Last took Tylenol at dialysis today. Past appt:Dialysis and labs drawn, sent to [place] - Today Future appt:Cardiology - 09/30/24 Chronic Conditions (chief complaint). Description: *See Chronic Conditions HPI Reason For Referral Reason For Referral No [...] [address] [place], [phone] Ordered: Referrals: Gastroenterology. Peggy Beaver. Evaluation/diagnostic/treatment - Level 3 Appointment date/timeframe: 01/08/2023 ordered Referral Referred To: Dr. Ernst Good Ordered: Referrals: Cardiology. Dr. Ernst Good. Evaluation/diagnostic/treatment - Level 3 ordered Referral Referred To: Dr. Trujillo Ordered: Referrals: Urology. Dr. Trujillo. Evaluation/diagnostic/treatment - Level 3 Appointment date/timeframe: 10/08/2021 ordered Referral Referred To: David Hamilton [address], [place], [phone] Ordered: Referrals: Nephrology. David Hamilton. Evaluation/diagnostic/treatment - Level 3 ordered Referral Referred To: [address] [place] [address], [place], [id number] [phone] Ordered: CT chest without contrast ordered Referral Referred To: Watson Corral OD [address], [place], [id number] [phone] Ordered: Referrals: Civil Design Technician. Watson Corral OD. Evaluation/diagnostic/treatment - Level 3 ordered Appointment [facility] Patient Education Marco: Care Instruc tions completed Patient Education Learning About COPD com pleted History Of Present Illness Encounter Date Complaint History Of Prese nt Illness Hospital Follow-Up The patient w as seen today for a hospital follow-up visit, after being discharged on 09/11/2024. Details regarding this most recent admission include: Patient seen for hospital follow-up.Patient comes in with daughter Jeison for follow-up.Patient went to [place] emergency room after having chest pain on 09/07. Was found to have pneumonia and was treated for this. Unfortunately patient had significant anemia which did require transfusion while in the hospital. Eliquis was stopped, was recently diagnosed with paroxysmal atrial fibrillation and a recent hospitalization. Patient is also been recently started on hemodialysis. Patient was recommended to follow-up with hematology to discuss anticoagulation given anemia, of note patient has been on EPO infusions for years. Patient was cleared for discharge home on 09/11Since dischargeNo longer has chest painDenies shortness of breath, dizzinessHas swelling of lower extremities Daughter will be scheduling appt with hematology. Scooby on hold until seen by hematology.-Headache x5 daysThrobbing sensation of left eye Denies N/VHearing and vision has diminished since starting dialysis Treated with Tylenol with no relief. Last took Tylenol at dialysis today. Past appt:Dialysis and labs drawn, sent to [place] - Today Future appt:Cardiology - 09/30/24 Chronic Conditions *See Chronic Conditions HPI Chronic Conditions *See Chronic Conditions HPI Other [...] for hospital follow-up.Patient was seen at [facility] from 05/27 to 06/05.Patient went to the [...] ASUM 04/14 Chronic Conditions *See Chronic Conditions HPI Hospital Follow-Up The patient w as seen today for a hospital follow-up visit, after being discharged on 10/12/2022. Details regarding this most recent admission include: Patient presents today for hospital follow-up. He is accompanied by his son, Harshil. He primarily speaks Maori. He presented to [facility] on October 10 under the advisement of his multiple coil winder. He has a history of hypertension, diabetes, ANCA vasculitis, anemia, stage V CKD and hyperlipidemia.He had been reporting increased weakness and fatigue for the past 2 weeks prior to admission and chest pain and increased work of breathing while cutting grass before admission.He had been getting erythropoietin outpatient through multiple coil winder Dr. Hamilton. Upon admission his hemoglobin was [...] Deltasone 5mgDc Home on 10.12.2022.Recommend appointment with multiple coil winder Dr. Hamilton in 1 week- no appt yet.Mortician Investigator Dr. Good in 1 monthSt[facility] [...] HPI Crescentic glomerulonephritis La st OV with Rn Rehab, Dr. Hamilton 07/16/21Labs drawn last week ordered [...] include: pt comes in with Dtr Teri (Jeison) who is acting as translatorpt was recently [...] with COVIDhe did receive mAb infusion at [facility] having weakness and occasional shortness of breath [...] how much. other Infusion schedul ed at [facility], has a port.Does not have [...] recommendation for worsening renal functionpt was in [facility] from 05/11-05/14 for abdominal pain and LEANDRO, on d/c Cr was at 3.2he had repeat labs on 05/24 with Cr up to 4.78, these were ordered and performed at [facility] and I was unable to obtain them until 05/29, pt and family were unsure who ordered and had not been contacted about them before. pt was having worsening abd pain and I recommended ED, family took him to [facility] he went to the ED on [...] pt and son Harshil. Harshil and ZEB Sultana acted as translators as patient is primarily kiswahili speakingPt has several children, including Harshil, Radha [...] Telehealth This visit was c ompleted via [facility] Telehealth visit with real time audio [...] to penis, went to Urgent Care in [place] 03/27/21Prescribed clotrimazole 1% cream to be applied [...] the high dose flu vaccine.pt speaks little Mauritanian, son Harshil translating other SNTMNT 09/13, 10/04 LyndsaysAdvised pt to call pharmacy for Shingrix.Denies urinary issues or bowel issues.occasional nocturia 2-3 times a nightno pain or hematuriaWould like to know when he should have his prostate checked and next colon screening. Chronic Conditions *See Chronic Conditions HPI Atherosclerosis of aorta Denies chest pain, swelling in lower extremitiesArthritis in hands.Would take Aleve or Tylenol prn.no swelling or injury COPD Additional infor polloion: Occasional shortness of breath.Cough with prolonged speaking.Quit smoke 9 years ago. Chronic Conditions *See Chronic Conditions HPI 12 month follow up Chronic Conditions Functional Status Date Functional Assessmen t No Information Medications Administered Medication Instructions Dosage Effective Dates (start - stop) Status Comments atorvastatin 40 mg tablet take 1 tablet by oral route every day 40 MG - No Longer Active Instructions Date Instruction Additional Infor mation Your lungs sound cuong ar continue to monitor for cough Related to History of pneumonia Follow-up with [facility] and multiple coil winder Related to Dependence on renal dialysis Your heart rates wel l-controlled we will continue metoprolol and aspirin and amiodarone. Related to Paroxysmal atrial fibrillation At this time I will start you on renally dosed valacyclovir, this is 500 mg taken after dialysis. You can also greens picker a lidocaine topical to help numb the pain. I also recommend that you keep an eye doctor's appointment that you are working on schedule Related to Herpes zoster with other complication Chronic kidney disea se (CKD) is a long-term condition where your kidneys don't work well, leading to a buildup of waste and fluids in your body. It can cause problems like high blood pressure and anemia. Early detection and treatment are important to manage CKD and improve your quality of life. We monitor this through routine labs. Related to Chronic kidney disease, stage 5 Your blood pressure is well controlled. Please monitor your blood pressure at home at least once a week or anytime you are feeling dizzy or light headed. Continue the same medications at this time. Related to Hypertensive chronic kidney disease with stage 5 chronic kidney disease or end stage renal disease Please work on regul ar physical activity, well rounded diet, regular sleep schedules and routines and try to socialize as much as safely possible. Related to Body mass index [BMI] 24.0-24.9, adult Urinary Incontinence Giving encouragement to exercise Related to Body mass index (BMI) 24.0-24.9, adult Fall Risk Prevention Dietary management e ducation, guidance, and counseling Related to Body mass index (BMI) 24.0-24.9, adult Urinary Incontinence Fall Risk Prevention 1. 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 Related to Anemia in other chronic diseases [...] mass index [BMI] 26.0-26.9, adult Follow-up with nephr jeny and get transfusions as needed Related to [...] with other diabetic kidney complication Follow-up with nephr jeny as scheduled, you are no longer on [...] would like you to follow-up with a yard attendant at [facility]. I will help facilitate this. 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 Trujillo at [facility] for evaluation Related to Hematuria, [...] identified. Related to Atherosclerotic heart disease of rincon coronary artery without angina pectoris At this [...] process Disease process Assessments Type Assessment Date assessment Body mass index [BMI] 24.0-24.9, adult assessment Hypertensive chronic kidney disease with stage 5 chronic kidney disease or end stage renal disease assessment Chronic kidney disease, stage 5 assessment Dependence on renal dialysis Aug assessment History of pneumonia assessment Herpes zoster with other complic ation assessment Paroxysmal atrial fibrillation A Mental Status Date Cognitive Assessment Orientation - Pepin ed to time, place, person, situation. Patient Care Teams Name Effective Dates (start - stop) Status Members No Information
--- OUTSIDE RECORDS SUMMARY | 2024-10-16 12:22 | XMS_ITS | Encounter Summary ---
Author Organization [facility] Address [address] [place] [address] Care Team Providers Care Rug Receiving Clerk Name Role Phone Chandler Geronimo DO Primary Care Provide r Encounter Details Date Type Department Care Team (Late st Contact Info) Description 07/16/2021 Therapy Plan [facility] [address] [place] [id number] David Hamilton MD [facility], [address] [id number] Social History Tobacco Use Types Packs/Day Years Used Date Smoking Tobacco: Never Smokeless Tobacco: Never Alcohol Use Standard Drinks/Week Comments Never 0 (1 standard drink = 0.6 oz pur e alcohol) Sex and Gender Information Value Date Recorded Sex Assigned at Male 07/22/2024 2:00 PM BIOMETRIC FINGERPRINTING TECHNICIAN Legal Sex Male 2:48 PM BIOMETRIC FINGERPRINTING TECHNICIAN Gender Identity Not on file Sexual Orientation Not on file COVID-19 Exposure Response Date Recorded In the last 10 days, have yo u been in contact with someone who was confirmed or suspected to have Coronavirus/COVID-19? No / Unsure 07/16/2021 3:48 PM BIOMETRIC FINGERPRINTING TECHNICIAN documented as of this encounter Functional Status * RETIRED Are you deaf or do you have serious difficulty hearing Answer Date of Assessment Author Status No 06/13/2021 2:44 AM BIOMETRIC FINGERPRINTING TECHNICIAN Activ e * RETIRED Are you blind or do you have serious difficulty seeing, even when wearing glasses? Answer Date of Assessment Author Status No 06/13/2021 2:44 AM BIOMETRIC FINGERPRINTING TECHNICIAN Activ e * Do you have serious [...] from hospital General No Aline Krishna RN documented as of this encounter Visit Diagnoses Diagnosis Anemia in stage 5 chronic kidney disease, not on chronic dialysis ([facility])- Primary documented in this encounter Care Teams Rug Receiving Clerk Relationship Specialty Start Date End Date Chandler Geronimo DO [address] [place] [phone] PCP - General FAMILY PRACTICE 05/29/21 documented as of this encounter
--- OUTSIDE RECORDS SUMMARY | 2024-10-16 12:22 | XMS_ITS | Encounter Summary ---
Author Organization [facility] Address [address] [place] [address] Care Team Providers Care Harbor Department Manager Name Role Phone Chandler Geronimo DO Primary Care Provide r Reason for Referral * Surgical (Routine) - New Request Specialty Diagnoses / Procedures Referred By Hazel t Referred To Contact Diagnoses ESRD (end stage renal disease) on dialysis ([facility]) Procedures Case request operating room: BRACHIAL CEPHALIC ARTERIOVENOUS FISTULA OR TRANSPOSITION BASILIC VEIN (LEFT ARM) Layton Herrera MD [facility]. [facility] [address] [place] [address] Phone: tel: fax: Referral ID Status Reason Start Date Expiration Date V isits Requested Visits Authorized [id number] New Request 06/01/2024 06/01/2025 1 1 PLANNER Encounter Details Date Type Department Care Team (Late st Contact Info) Description 06/01/2024 Prep for Procedure [facility] [place] [address] [place] [address] Layton Herrera MD [facility]. [facility] [address] [place] [address] Social History Tobacco Use Types Packs/Day Years Used Date Smoking Tobacco: Never Smokeless Tobacco: Never Alcohol Use Standard Drinks/Week Comments Never 0 (1 standard drink = 0.6 oz pur e alcohol) [facility] Utilities Answer Date Recorded In the [...] declined 10/10/2022 How often do you attend anabaptism or holiness serv ices? Patient declined 10/10/2022 Do you belong to any clubs o r organizations such as anabaptism groups, unions, fraternal or athletic groups, or [...] Recorded Patient Health Questionnaire-2 Score 0 01/05/2024 [facility] - Occupational Stress Questionnaire Answer Date Recorded [...] any time in the past 12 m [facility], were you homeless or living in a group home (including now)? 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 Author Patient will return to prior living situation and remain independent in ADLs upon discharge from hospital General Aline Russell, RN Health - patient able to perform ADLs independently Lifestyle No El Vaughn, product safety expert - family caregiver with be involved in care transitions and discharge planning Lifestyle No Abby Eng RN documented as of this encounter Visit Diagnoses Diagnosis ESRD (end stage renal disease) on dialysis ([facility])- Primary End stage renal disease documented in this encounter Additional Health Concerns Assessment Noted Time PHQ-9 Depression Total Score: 0 03/14/20 22 3:10 PM CDT documented as of this encounter Care Teams Harbor Department Manager Relationship Specialty Start Date End Date Chandler Geronimo DO [address] [place] [phone] PCP - General FAMILY PRACTICE 05/29/21 documented as of this encounter
--- OUTSIDE RECORDS SUMMARY | 2024-10-16 12:22 | XMS_ITS | Encounter Summary ---
Author Organization [facility] Address [address] [place] [address] Care Team Providers Care Soapstoner Name Role Phone Chandler Geronimo DO Primary Care Provide r Encounter Details Date Type Department Care Team (Late st Contact Info) Description 09/01/2024 MyChart Message Enc [facility] Medical Group Multispecialty Care - [facility] 3 [facility], [facility] [address] [place] [address] David Hamilton MD 3 [facility], [facility] [address] [place] [address] question Social History Tobacco Use Types Packs/Day Years Used Date Smoking Tobacco: Never Smokeless Tobacco: Never Alcohol Use Standard Drinks/Week Comments Never 0 (1 standard drink = 0.6 oz pur e alcohol) [facility] Utilities Answer Date Recorded In the [...] declined 10/10/2022 How often do you attend shinto or mandaeism serv ices? Patient declined 10/10/2022 Do you belong to any clubs o r organizations such as shinto groups, unions, fraternal or athletic groups, or [...] Recorded Patient Health Questionnaire-2 Score 0 07/26/2024 [facility] - Occupational Stress [...] money to buy more. Never true 08/25/19 Within the past 12 months, t he [...] time in the past 12 m [facility], were you homeless or living in a retirement (including now)? 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
--- OUTSIDE RECORDS SUMMARY | 2024-10-16 12:22 | XMS_ITS | Clinical Summary ---
Author Organization [facility] [employer] Address [address] [place] [address] Care Team Providers Care Breast Puller Name Role Phone Unavailable Primary Care Provider Unavailabl e Source Comments [facility] [employer],non-owned Affiliates and Associated Physician Practices is amultiple site organization consisting of ambulatory clinics and hospital sitesin [place], [place], [place] and [place]. This disclosure is being madepursuant to the Care Everywhere program and may not contain all information available regarding this patient. Last updated 18.[facility] [employer] Allergies No known active allergies Medications * Be aware that medications may not be up to date on this document. Alwaysverify current medications with the patient. No known medications Active Problems Problem Noted Date Diagnosed Date Injury, other and unspecified, hand, except fing er 06/17/2011 Elevated troponin 11/20/2010 Syncope and collapse 11/19/2010 Immunizations Immunization Administration Dates Next Due DT 06/17/2011 Social [...] at Not on file Legal Sex Male 11:54 AM [employer] Gender Identity Not on file Sexual Orientation Not on file Last Filed Vital Signs Vital Sign Reading Time Taken Comments Blood Pressure 113/89 06/17/2011 5:40 PM [employer] Pulse 67 06/17/2011 9:53 PM [employer] Temperature 36.3 C (97.3 F) 06/17/2011 5:40 PM [employer] Respiratory Rate 16 06/17/2011 5:40 PM [employer] Oxygen Saturation 95% 06/17/2011 9:53 PM [employer] Inhaled Oxygen Concentration - - Weight 91.6 kg (202 lb) 06/17/2011 5:40 PM [employer] Height 177.8 cm (5' 10 ) 06/17/2011 5:40 PM [employer] Body Mass Index 28.98 06/17/2011 5:40 PM [employer] Plan of Treatment Health Maintenance Due Date Last Done Comments PNEUMOCOCCAL VACCINE 50+ (1 of 2 - PCV) 12/31/1966 HEPATITIS B VACCINE (1 of 3 - Risk Dialysis 4-dose series) 1968 ZOSTER VACCINE (1 of 2) 12/31/1997 DTAP/TDAP/TD VACCINES (2 - Tdap) 06/17/2021 06/17/2011 Respiratory Syncytial Virus (RSV) Vaccine Pt: or over 60 yrs (1 - 1-dose 75+ series) 12/31/2022 COVID-19 VACCINE ( - season) 2024 12/22/2021, 10/04/2020 DEPRESSION SCREENING 06/02/2024 INFLUENZA VACCINE Completed 05/03/2024, , 04/05/2021, Additional history exists HEPATITIS C SCREENING Completed 08/20/2024 , 08/20/2024, 05/30/2021 HIB VACCINE Aged Out No longer eligi ble based on patient's age to complete this topic HPV VACCINE Aged Out No longer eligi ble based on patient's age to complete this topic MENINGOCOCCAL (Group B) VACCINE SHARED DECISION-MAKING Aged Out No longer eligible based on patient's age to complete this topic MENINGOCOCCAL GROUPS A/C/Y/W VACCINE Aged Out No longer eligible based on patient's age to complete this topic Advance Directives * FULL RESUSCITATION (Latest Code Status on File) Date Activated Date Inactivated Comments 11/20/2010 1:48 PM 11/21/2010 5:57 AM
--- OUTSIDE RECORDS SUMMARY | 2024-10-16 12:22 | XMS_ITS | Clinical Summary ---
Author Organization [facility] Address [address] [place] [address] Care Team Providers Care Cytotechnologist/Histotechnologist Name Role Phone Chandler Geronimo DO Primary Care Provide r Allergies No known active allergies Medications atorvastatin (LIPITOR) 20 MG tablet Take 1 tablet (20 mg total) by mouth nightly at bedtime. 022 Active calcitriol (ROCALTROL) 0.25 MCG capsuleIndications:Sec ondary hyperparathyroidism (HHS/HCC) Take 2 capsules (0.5 mcg total) by mouth daily. 180 capsule 3 025 Active pantoprazole EC (PROTONIX) 40 MG tablet Take 1 tablet (40 mg total) by mouth daily. 025 Active sodium bicarbonate 650 MG tablet Take 1 tablet (650 mg total) by mouth daily. Active epoetin rosette-epbx (RETACRIT) 72060 Units/mL injectionIndications:E nd Stage Renal Disease on Hemodialysis Inject 1 mL (10,000 Units total) into the skin 3 (three) times a week. Indications: Bruise Trimmer Kidney Failure Treated with Hemodialysis On Friday, Friday and Friday with hemodialysis 12 mL 025 Active allopurinol (ZYLOPRIM) 100 MG tabletIndications:Hype ruricemia Take 1 tablet (100 mg total) by mouth 3 (three) times a week. On Friday, Friday and Friday after hemodialysis 12 tablet 025 Active furosemide (LASIX) 40 MG tabletIndications:ESRD (end stage renal disease) on dialysis ([facility] HHS/[facility]) Take 3 tablets (120 mg total) by mouth 2 (two) times a day, 3 (three) days a week. Take 3 tablets (120 mg total) two times a day on non-dialysis days (Friday, Friday, and Friday) 96 tablet 025 Active B rlcmecy-C-gnqty acid 0.8 mg (DIALYVITE/NEPHRO-ROMINA ) Tab tabletIndications:End stage renal disease ([facility] HHS/[facility]) Take 1 tablet by mouth daily. 30 tablet 025 Active calcium carbonate (TUMS) 500 MG chewable tabletIndications:Hype rphosphatemia Chew 1 tablet (500 mg total) by mouth 3 (three) times daily before meals. 025 Active amiodarone 400 MG Tab Take 200 mg by mouth daily. 30 tablet 025 Active metoprolol tartrate (LOPRESSOR) 25 MG tablet Take 1 tablet (25 mg total) by mouth 2 (two) times daily. 60 tablet 025 Active lidocaine 4 % patch Place 1 patch onto the skin daily. Remove & Discard patch within 12 hours or as directed by MD 30 patch 025 Active apixaban (ELIQUIS) 5 MG tablet Take 1 tablet (5 mg total) by mouth 2 (two) times daily. 60 tablet 2 025 Active aspirin EC 81 MG tablet Take 1 tablet (81 mg total) by mouth daily. Active doxazosin (CARDURA) 4 MG tabletIndications:CKD (chronic kidney disease) stage 5, GFR less than 15 ml/min ([facility] HHS/HCC),Secondary hyperparathyroidism (HHS/HCC),Primary hypertension,Hyperkale abbie Take 1 tablet (4 mg total) by mouth nightly at bedtime. 90 tablet 3 025 Active ferrous sulfate, 65 mg elemental, 325 (65 FE) MG tabletIndications:CKD (chronic kidney disease) stage 5, GFR less than 15 ml/min ([facility] HHS/HCC),Secondary hyperparathyroidism (HHS/HCC),Primary hypertension,Hyperkale abbie Take 1 tablet (325 mg total) by mouth daily with breakfast. 90 tablet 3 025 Active doxazosin (CARDURA) 4 MG tabletIndications:CKD (chronic kidney disease) stage 5, GFR less than 15 ml/min ([facility]),Secondary hyperparathyroidism ([facility]),Primary hypertension,Hyperkale abbie Take 1 tablet (4 mg total) by mouth nightly at bedtime. 30 tablet 11 025 2024 Disconti nued(Reo rder) ferrous sulfate, 65 mg elemental, 325 (65 FE) MG tablet Take 1 tablet (325 mg total) by mouth daily with breakfast. 2024 Disconti nued(Reo rder) Active Problems Problem Noted Date Diagnosed Date Atrial fibrillation with RVR ([facility]) 0 08/24/2024 Diastolic heart failure ([facility]) 2024 ESRD (end stage renal diseas e) on dialysis ([facility]) 06/01/2024 GIB (gastrointestinal bleeding) 05/27/2024 Hyperlipidemia 12/23/2022 Iron deficiency anemia 10/21/2022 LEANDRO (acute kidney injury) 10/11/2022 Anemia due to chronic renal failure treated with erythropoietin, unspecified CKD stage 10/10/2022 CKD (chronic kidney disease) stage 4, GFR 15-29 ml/min ([facility]) 11/22/2021 Albuminuria 10/08/2021 Vitamin D insufficiency 08/30/2021 Acidosis 07/16/2021 Hyperuricemia 07/16/2021 Anemia in stage 5 chronic ki dney disease, not on chronic dialysis ([facility]) 06/28/2021 Primary hypertension 06/28/2021 Type 2 diabetes mellitus wit h stage 5 chronic kidney disease not on chronic dialysis, unspecified whether long term care pharmacist insulin use ([facility]) 06/28/2021 ANCA-associated vasculitis ([facility]) Edema, unspecified type 06/28/2021 Acute kidney injury 05/29/2021 Resolved Problems Problem Noted Date Diagnosed Date Resolved Date Pneumonia 06/13/2021 06/19/2021 Encounters Date Type Department Care Team Description 10/08/2024 Telephone [facility] [address] [address] [place] [address] Layton Herrera MD Referral ([facility] CATH) 10/07/2024 Orders Only [facility] Multispec[facility]ty Care - [facility] [address] [facility], [place] [address] [place] [phone] Christiana Goel LPN 10/07/2024 Telephone [facility] [address] [phone] Tirso Cooper MD Error 10/06/2024 2:00 PM CDT Office Visit [facility] [place] [address] [place] [address] Layton Herrera MD Follow Up 10/06/2024 Travel 09/03/2024 Hospital Follow-up Call [facility] Management [facility] [place] [address] Jen Larson, ALICIA Follow Up Call (MARA 08/24-09/01/24) 09/01/2024 Telephone [facility] [place] [address] [place] [address] Chayo Segura PA Medication Information 09/01/2024 MyChart Message Enc [facility] - [facility] [address] [facility], [place] [address] [place] [phone] Tirso Cooper MD question 08/31/2024 Telephone [facility]ty Care - [facility] [address] [facility], [place] [address] [place] [phone] Tirso Cooper MD Question 08/26/2024 [facility] [address] [phone] Tirso Cooper MD Question; Referral 08/24/2024 2:18 PM CDT - 09/01/2024 2:42 PM CDT Hospital Encounter [facility] [place] [address] Ismael Brennan MD Jumean, Khaled, MD Conti, Ori Nagel, Radha Clay, ANTON Hawk, Savanna Montilla, WILDER Woodson, ALEX Bay Dizziness; Chest Pain Discharge Disposition: Home or Self Care (Routine Discharge) 08/24/2024 [facility]phone [facility] - [address] [phone] Tirso Cooper MD Information 08/24/2024 Travel 08/24/2024 Telephone [facility] [address] [phone] Tirso Cooper MD Question 08/23/2024 Telephone [facility] [address] [phone] Tirso Cooper MD Error 08/20/2024 3:20 PM CDT - 08/20/2024 11:59 PM CDT Hospital Encounter [facility] [address] Tirso Cooper MD Discharge Disposition: Home or Self Care (Routine Discharge) 08/20/2024 3:20 PM CDT Hospital Encounter [facility] [place] [address] Triso Cooper MD Discharge Disposition: Home or Self Care (Routine Discharge) 08/20/2024 Travel 08/20/2024 [facility]phone [facility] [address], [address] [address] [place] [address] Tirso Cooper MD Information 08/19/2024 3:00 PM CDT Treatment [facility] [place] [address] Tirso Cooper MD Injection 08/19/2024 Orders [facility] [address], [address] [address] [place] [address] Tirso Cooper MD 08/19/2024 Telephone [facility] Care - [address], [facility] [address] [place] [address] Tirso Cooper MD Information 08/19/2024 Travel 08/16/2024 Telephone [facility] [address] [phone] Tirso Cooper MD Error 08/05/2024 3:00 PM MACHINE TRIMMER Treatment [facility] [place] [address] Tirso Cooper MD Injection 08/05/2024 Travel 07/29/2024 Telephone [facility] [address] [phone] Tirso Cooper MD Medication 07/28/2024 MyChart Message Enc [facility] [address] [phone] Filippo [facility] Provider Orders 07/28/2024 Orders Only [facility] [place] [address] Tirso Cooper MD 07/26/2024 11:52 AM MACHINE TRIMMER - 07/26/2024 11:59 PM MACHINE TRIMMER Hospital Encounter [facility] [place] [address] Tirso Cooper MD Discharge Disposition: Home or Self Care (Routine Discharge) 07/26/2024 11:00 AM MACHINE TRIMMER Office Visit [facility] Care - [address], [address] [phone] Tirso Cooper MD CKD Follow-up 07/26/2024 Telephone [facility] - [address], [facility] [address] [place] [address] Tirso Cooper MD Results 07/26/2024 Telephone [facility] [address] [phone] Tirso Cooper MD Results 07/26/2024 Travel 07/22/2024 3:00 PM MACHINE TRIMMER Treatment [facility] [place] [address] Tirso Cooper MD 07/22/2024 2:15 PM MACHINE TRIMMER Office Visit [facility], [facility] [address] [place] [address] Layton Herrera MD Surgery Follow Up 07/22/2024 Travel from Last 3 Months Immunizations Immunization Administration Dates Next Due Influenza (Generic) 05/03/2024,02/18/2014 Influenza Adult (Generic) 04/17/2023,04/05/2021 PFIZER COVID-19 (ORIGINAL FO RMULATION, PURPLE CAP) mRNA, LNP-S, PF, 30 MCG/0.3 ML DOSE 12/22/2021,10/04/2020 Pneumococcal (Pneumovax 23) 02/19/2024, 4,06/20/2013 Pneumococcal (Prevnar 13) 11/26/2017 Pneumococcal (Prevnar 20) 05/03/2024 Tdap (Generic) 08/27/2016,02/25/2016 Zoster (Zostavax) [address] Unt/0.65Ml 02/25/2016 Family History Medical History Relation [...] 0.6 oz pur e alcohol) [facility] [employer] Answer Date Recorded In the past 12 months has [place], oil, or water Svpply threatened to shut off services in your [...] declined 10/10/2022 How often do you attend mandaen or jehovah's witness serv ices? Patient declined 10/10/2022 Do you belong to any clubs o r organizations such as mandaen groups, unions, fraternal or athletic groups, or [...] Recorded Patient Health Questionnaire-2 Score 0 07/26/2024 [facility] Occupat ional [facility] - Occupational Stress Questionnaire Answer Date Recorded [...] to sleep or slept in a senior living (including now)? No 10/10/2022 Housing Stability Vital [...] in the past 12 m [facility], were you homeless or living in a senior living (including now)? 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 [employer] Not on cindy e Not on file Not on file Last Filed Vital Signs Vital Sign Reading Time Taken Comments Blood Pressure 110/40 10/06/2024 2:06 PM CDT Pulse 63 10/06/2024 2:06 PM CDT Temperature 37 C (98.6 F) 09/01/2024 12:57 PM CDT Respiratory Rate 18 09/01/2024 12:57 PM CDT Oxygen Saturation 100% 09/01/2024 12:57 PM CDT Inhaled Oxygen Concentration - - Weight 77.6 kg (171 lb) 10/06/2024 2:06 PM CDT Height 175.3 cm (5' 9 ) 10/06/2024 2:06 PM CDT Body Mass Index 25.25 10/06/2024 2:06 PM CDT Plan of Treatment Health Maintenance Due Date Last Done Comments Diabetes: Retinopathy Eye Exam 12/31/1967 Annual Medicare Wellness Visit 12/31/2012 Zoster Vaccines (2 of 3) 04/21/2016 02/25/2016 RSV Immunization or 60+ Years (1 - 1-dose 75+ series) 12/31/2022 Lipid Panel 10/13/2023 10/12/2022, 10/31, 05/30/2021 COVID-19 Vaccine ( season) 2024 12/22/2021, 10/04/2020, 09/13/2020, Additional history exists Hemoglobin A1C 02/25/2025 08/25/2024, 05/03, 07/24/2023, Additional history exists DTaP, Tdap and Td Vaccines (3 - Td or Tdap) 08/27/2026 08/27/2016, 02/25/2016 Hepatitis C Completed 05/30/2021 Pneumococcal Vaccine: 50+ Years Completed 05/03/2024, 02/19/2024, 11/26/2017, Additional history exists Colorectal Cancer Screening Colonoscopy (10 Years) Discontinued 05/29/2024, 05/28/2024 PHQ-2 (Physician [place]) Completed 07/26/2024 Colorectal Cancer Screening FIT/FOBT (1 [...] perform ADLs independently Lifestyle No [place] hot wire glass tube cutter - family caregiver with be involved in care transitions and discharge planning Lifestyle No Abby Eng, supervisor liquefaction Procedure Name Priority Date/Time Associated Diagnosis Comments [...] COMPREHENSIVE METABOLIC PANEL Routine 08/05/2024 3:45 PM MACHINE TRIMMER Anemia in stage 5 chronic kidney disease, not on chronic dialysis (CMS/HCC HHS/HCC) CBC W/DIFF AUTOMATED Routine 08/05/2024 3:45 PM MACHINE TRIMMER Anemia in stage 5 chronic kidney disease, not on chronic dialysis (CMS/HCC HHS/HCC) CBC, AUTO, NO DIFF Routine 07/26/2024 12 :13 PM MACHINE TRIMMER CKD (chronic kidney disease) stage 5, GFR less than 15 ml/min (CMS/HCC HHS/HCC) URIC ACID BLOOD Routine 07/26/2024 12:13 PM MACHINE TRIMMER CKD (chronic kidney disease) stage 5, GFR less than 15 ml/min (CMS/HCC HHS/HCC) PTH - INTACT Routine 07/26/2024 12:13 PM MACHINE TRIMMER CKD (chronic kidney disease) stage 5, GFR less than 15 ml/min (CMS/HCC HHS/HCC) BASIC METABOLIC PANEL Routine 07/26/2024 12:13 PM MACHINE TRIMMER CKD (chronic kidney disease) stage 5, GFR less than 15 ml/min (CMS/HCC HHS/HCC) VITAMIN D, 25 OH Routine 07/26/2024 12:1 3 PM MACHINE TRIMMER CKD (chronic kidney disease) stage 5, GFR less than 15 ml/min (CMS/HCC HHS/HCC) COLONOSCOPY Routine 05/28/2024 12:12 PM MACHINE TRIMMER LIPID PANEL Routine 10/12/2022 7:06 AM CDT HEPATITIS PANEL,ACUTE Routine 05/30/2021 1:20 PM MACHINE TRIMMER from Last 3 Months or Most Recently Relevant to Health Maintenance Results * (ABNORMAL) POCT glucose (09/01/2024 12:55 PM CDT) Only the most recent of31 resultswithin the time period is included. GLUCOSE POC 108(H) 70 - 99 mg/dL 09/01/2024 1:02 PM CDT [facility] 09/01/2024 12:5 5 PM CDT Christiana Woodson [place] POCT ORDERABLES - DEVICE Final Result [facility] [address] [place] [address], [place] [phone] * (ABNORMAL) BASIC METABOLIC PANEL (09/01/2024 6:32 AM CDT) Only the most recent of6 resultswithin the time period is included. GLUCOSE 107(H) 70 - 99 MG/DL 09/01/2024 7:56 AM CDT [facility] BUN 80(H) 7 - 18 MG/DL 09/01/2024 7:56 AM CDT [facility] CREATININE S/P/B 6.60(HH) 0.7 - 1.3 MG/DL 09/01/2024 7:56 AM CDT [facility] Comment:NOT CALLED PER CRITI JARAD VALUE POLICY SODIUM S/P/B 135(L) 136 - 145 MMOL/L 09/01/2024 7:56 AM CDT [facility] POTASSIUM S/P/B 4.0 3.5 - 5.1 MMOL/L 09/01/2024 7:56 AM CDT [facility] CHLORIDE S/P/B 99 97 - 115 MMOL/L 09/01/2024 7:56 AM CDT [facility] CO2 23.6 21 - 32 MMOL/L 09/01/2024 7:56 AM CDT [facility] CALCIUM S/P/B 9.0 8.5 - 10.1 MG/DL 09/01/2024 7:56 AM CDT [facility] ANION GAP 12.4(H) 2 - 10 MMOL/L 09/01/2024 7:56 AM T [facility] BUN CREATININE RATIO 12.1 6 - 26 09/01/2024 7:56 AM T [facility] GFR ESTIMATE 8(L) >90 ML/MIN/1.7 3 M2 09/01/2024 7:56 AM T [facility] Comment: NOTE: eGFR is not calculated for patients <18 years of age or gender unknown. This is an estimated GFR calculation using the new CKD EPI creatinine equation without race and so does not require a correction factor for race. This estimated GFR should not be used for calculating drug doses. 09/01/2024 6:32 AM CDT us [facility] Final Res ult [facility] [address] [place] [address], * (ABNORMAL) CBC W/DIFF AUTOMATED (09/01/2024 6:32 AM CDT) Only the most recent of11 resultswithin the time period is included. WBC 8.99 4.5 - 11.0 x10'3/uL 09/01/2024 7:27 AM CDT [facility] RBC 2.57(L) 4.70 - 6.10 x10'6/uL 09/01/2024 7:27 AM CDT [facility] HGB 7.6(L) 14.0 - 18.0 G/DL 09/01/2024 7:27 AM CDT [facility] HCT 24.6(L) 43.0 - 54.0 % 09/01/2024 7:27 AM CDT [facility] MCV 95.7(H) 80.0 - 94.0 FL 09/01/2024 7:27 AM CDT [facility] MCH 29.6 27.0 - 31.0 PG 09/01/2024 7:27 AM CDT [facility] MCHC 30.9(L) 32.0 - 36.0 G/DL 09/01/2024 7:27 AM CDT [facility] RDW 18.3(H) 11.5 - 14.5 % 09/01/2024 7:27 AM CDT [facility] PLT 318 130 - 400 x10'3/uL 09/01/2024 7:27 AM CDT [facility] MPV 9.6 9.3 - 12.2 FL 09/01/2024 7:27 AM CDT [facility] DIFFERENTIAL TYPE AUTOMATED DIFFERENTIAL 09/01/2024 7:27 AM CDT [facility] NEUTROPHILS % 77.4 % 09/01/2024 7:27 AM CDT [facility] LYMPHOCYTES % 9.1 % 09/01/2024 7:27 AM CDT [facility] MONOCYTES % 10.3 % 09/01/2024 7:27 AM CDT [facility] EOSINOPHILS 2.0 % 09/01/2024 7:27 AM CDT [facility] BASOPHILS 0.4 % 09/01/2024 7:27 AM CDT [facility] IMMATURE GRANS % 0.8 % 09/02/19 7:27 AM CDT [facility] ABS. NEUTROPHILS 6.95 1.80 - 7.70 x10'3/uL 09/01/2024 7:27 AM CDT [facility] ABS. LYMPHOCYTES 0.82(L) 1.00 - 4.80 x10'3/uL 09/01/2024 7:27 AM CDT [facility] ABS. MONOCYTES 0.93(H) 0.30 - 0.82 x10'3/uL 09/01/2024 7:27 AM CDT [facility] ABS. EOSINOPHILS 0.18 0.04 - 0.54 x10'3/uL 09/01/2024 7:27 AM CDT [facility] ABS. BASOPHILS 0.04 0.01 - 0.08 x10'3/uL 09/01/2024 7:27 AM CDT [facility] ABS. IMMATURE GRANULOCYTES 0.07 0.00 - 0.49 x10'3/uL 09/01/2024 7:27 AM CDT [facility] 09/01/2024 6:32 AM CDT Christiana Woodson [facility] Final Res ult [facility] [address] [place] [phone], * PHOSPHORUS, INORGANIC PHOSPHATE (08/31/2024 5:57 AM CDT) Only the most recent of2 resultswithin the time period is included. PHOSPHORUS 4.8 2.5 - 4.9 MG/DL 08/31/2024 11:18 AM CDT [facility] 08/31/2024 5:57 AM CDT Christiana Woodson [facility] Final Res ult Performing Organization Address City/[facility] Co de Phone Number [facility] [address] [place] [phone], * MAGNESIUM (08/31/2024 5:57 AM CDT) Only the most recent of4 resultswithin the time period is included. MAGNESIUM 2.2 1.8 - 2.4 MG/DL 08/31/2024 11:18 AM CDT [facility] 08/31/2024 5:57 AM CDT Christiana Woodson [facility] Final Res ult Performing Organization Address City/[facility]/ZIP Co de Phone Number [facility] [address] [place] [phone], * MRI ENTEROGRAPHY (08/29/2024 12:01 PM CDT) [...] 1:18 PM Narrative 08/29/2024 1:34 PM CDT [address] [address] EXAM: MRI ENTEROGRAPHY DATE: 08/29/2024 COMPARISON: None. [...] Procedure Note Crispin Wagner MD - 08/29/2024 [facility] [address] [place], [place] [address] EXAM: MRI ENTEROGRAPHY DATE: 08/29/2024 COMPARISON: None. INDICATION: Anemia, dark stools. TECHNIQUE: Precontrast and postcontrast imaging with 15 cc intravenousDotarem right antecubital fossa. FINDINGS: In the dome of the liver near the IVC, there is a 2 cm ovoid [id number] lesion present. Minimal heterogeneity on the postcontrastimages. [...] urinary tract obstruction. There are numerous bilateral [id number] lesions in the kidneys. These are of [...] OCCULT BLOOD, FECES (08/28/2024 11:48 AM CDT) Pathologist [facility] OCCULT BLOOD FECAL POSITIVE(A ) NEGATIVE 08/28/2024 12:57 PM CDT [facility] STOOL SPECIMEN / Unknown 08/28/2024 11:48 AM CDT Tirso Cooper MD BODY FLUIDS AND STOOLS ORDERAB LES Final Result [facility] [address] [place] [address], [place] [phone] * (ABNORMAL) COMPREHENSIVE METABOLIC PANEL (08/27/2024 5:23 AM CDT) Only the most recent of5 resultswithin the time period is included. GLUCOSE 117(H) 70 - 99 MG/DL 08/27/2024 6:33 AM CDT [facility] BUN 85(H) 7 - 18 MG/DL 08/27/2024 6:33 AM CDT [facility] CREATININE S/P/B 5.29(HH) 0.7 - 1.3 MG/DL 08/27/2024 6:33 AM CDT [facility] Comment:NOT CALLED PER CRITI JARAD VALUE POLICY SODIUM S/P/B 138 136 - 145 MMOL/L 08/27/2024 6:33 AM CDT [facility] POTASSIUM S/P/B 3.7 3.5 - 5.1 MMOL/L 08/27/2024 6:33 AM CDT [facility] CHLORIDE S/P/B 103 97 - 115 MMOL/L 08/27/2024 6:33 AM CDT [facility] CO2 27.2 21 - 32 MMOL/L 08/27/2024 6:33 AM CDT [facility] CALCIUM S/P/B 8.9 8.5 - 10.1 MG/DL 08/27/2024 6:33 AM CDT [facility] BILIRUBIN TOTAL S/P/B 0.5 0.2 - 1.2 MG/DL 08/27/2024 6:33 AM CDT [facility] Comment: THIS ASSAY IS NOT RECOMMENDED FOR PATIENTS UNDERGOING TREATMENT WITH ELTROMBOPAG DUE TO THE POTENTIAL FOR FALSELY ELEVATED RESULTS. TOTAL PROTEIN S/P/B 5.5(L) 6.4 - 8.2 G/DL 08/27/2024 6:33 AM CDT [facility] ALBUMIN S/P/B 2.6(L) 3.4 - 5.0 G/DL 08/27/2024 6:33 AM CDT [facility] AST 8(L) 15 - 37 U/L 08/27/2024 6:33 AM CDT [facility] ALT 19 16 - 60 U/L 08/27/2024 6:33 AM T [facility] ALKALINE PHOSPHATASE S/P/B 74 50 - 136 U/L 08/27/2024 6:33 AM CDT [facility] ANION GAP 7.8 2 - 10 MMOL/L 08/27/2024 6:33 AM CDT [facility] BUN CREATININE RATIO 16.1 6 - 26 08/27/2024 6:33 AM CDT [facility] A/G RATIO 0.9(L) 1.0 - 2.0 RATIO 08/27/2024 6:33 AM CDT [facility] GFR ESTIMATE 11(L) >90 ML/MIN/1.7 3 M2 08/27/2024 6:33 AM CDT [facility] Comment: NOTE: eGFR is not calculated for patients <18 years of age or gender unknown. This is an estimated GFR calculation using the new CKD EPI creatinine equation without race and so does not require a correction factor for race. This estimated GFR should not be used for calculating drug doses. 08/27/2024 5:23 AM CDT Joann Sherman NP LABORATORY Final Result [facility] [address] [place] [address], [place] [phone] * TRANSFUSE RED BLOOD CELLS (08/26/2024 11:33 AM CDT) Dagmar Barakat MD NURSING TREATMENT ORDERABLES - BLOOD ADMIN Final Result * (ABNORMAL) HEPARIN, ANTI XA, UFH (08/26/2024 6:05 AM CDT) Only the most recent of3 resultswithin the time period is included. HEPARIN ANTI XA UFH <0.04(L) 0.30 - 0.70 IU/ML 08/26/2024 7:05 AM CDT [facility] Comment: UFH Therapeutic Anti Xa Ranges: Medical Therapeutic Range: 0.30 - 0.70 IU/mL Cardiac Therapeutic Range: 0.30 - 0.50 IU/mL Neuro Therapeutic Range: 0.20 - 0.40 IU/mL 08/26/2024 6:05 AM CDT Ori Hodges PA-C LABORATORY Final Result [facility] [address] [place] [address], [place] [phone] * (ABNORMAL) IRON SAT PANEL (IRON,IBC,%SAT) (08/26/2024 6:05 AM CDT) IRON 14(L) 65.0 - 175.0 MCG/DL 08/26/2024 6:51 AM CDT [facility] IRON BINDING CAPACITY 218(L) 250 - 450 MCG/DL 08/26/2024 6:51 AM CDT [facility] IRON SATURATION 6(L) 20 - 55 % 6:51 AM CDT [facility] 08/26/2024 6:05 AM CDT Tirso Cooper MD LABORATORY Final Result Performing Organization Address City/[facility]/ZIP Co de Phone Number [facility] [address] [place] [address], [place] [phone] * VITAMIN B-12 (08/26/2024 6:05 AM CDT) VITAMIN B12 S/P/B 934 254 - 1,320 PG/ML 08/26/2024 7:16 AM CDT [facility] 08/26/2024 6:05 AM CDT us Tirso Cooper MD LABORATORY Final Result [facility] [address] [place] [address], [place] [phone] * (ABNORMAL) FOLIC ACID SERUM (08/26/2024 6:05 AM CDT) FOLATE 36.9(H) 3.1 - 17.5 NG/ML 08/26/2024 7:16 AM CDT [facility] 08/26/2024 6:05 AM CDT Tirso Cooper MD LABORATORY Final Result Performing Organization Address City/[facility]/ZIP Co de Phone Number [facility] [address] [place] [address], * FERRITIN (08/26/2024 6:05 AM CDT) FERRITIN 79.3 8.0 - 388.0 NG/ML 08/26/2024 7:16 AM CDT [facility] 08/26/2024 6:05 AM CDT Tirso Cooper MD LABORATORY Final Result Performing Organization Address City/[facility]/ZIP Co de Phone Number [facility] [address] [place] [address], * (ABNORMAL) HEMOGLOBIN AND HEMATOCRIT (08/26/2024 1:11 AM CDT) Only the most recent of2 resultswithin the time period is included. HGB 6.7(LL) 14.0 - 18.0 G/DL 08/26/2024 1:43 AM CDT [facility] Comment: This result has been called to TREY BANUELOS by [id number] on 08/26/2024 01:42:49, and has been read back. HCT 20.9(L) 43.0 - 54.0 % 08/26/2024 1:43 AM CDT [facility] 08/26/2024 1:11 AM CDT Dagmar Barakat MD LABORATORY Final Result [facility] [address] [place] [address], * TYPE & SCREEN (08/26/2024 1:11 AM CDT) UNITS ORDERED 1 08/26/2024 2:09 AM CDT [facility] ABO/RH O POSITIVE 08/26/2024 2:09 AM CDT [facility] ANTIBODY SCREEN NEGATIVE 2:09 AM CDT [facility] SAMPLE EXPIRATION 08/29/2024,2359 08/26/2024 2:09 AM CDT [facility] BLOOD UNIT NUMBER [id number] 08/26/2024 2:10 AM CDT [facility] PRODUCT: PC LEUKOPOOR 08/26/2024 2:10 AM CDT [facility] UNIT DIVISION 00 08/26/2024 2:10 AM CDT [facility] BLOOD UNIT STATUS TRANSFUSED,FINAL 08/27/2024 8:06 AM CDT [facility] ISSUE DATE/TIME [id number] 025 8:06 AM CDT [facility] PRODUCT CODE [id number] 08/27/2024 8:06 AM CDT [facility] ABO/RH Unit O POS 08/27/2024 8:06 AM CDT [facility] ABO/RH UNIT ISBT CODE 5100 08/27/2024 8:06 AM CDT [facility] BLOOD UNIT EXPIRATION DATE [id number] 08/27/2024 8:06 AM CDT [facility] TRANSFUSION STATUS OK TO TRANSFUSE 08/26/2024 2:10 AM CDT [facility] CROSSMATCH COMPATIBLE-EXM 08/26/2024 2:10 AM CDT [facility] 08/26/2024 1:11 AM CDT Ori Hodges PA-C BLOOD BANK TEST ORDERABLES Fin al Result [facility] [address] [place] [address], [place] [phone] * USE ECHO 2D FU LTD W CON (08/25/2024 4:54 PM CDT) Anatomical Region Laterality Modality NA Echocardiogram 08/25/2024 4:26 PM CDT Narrative 08/26/2024 1:54 PM CDT Echocardiography Report Pat.Name: JAYLEEN CHAVEZ Pat.ID: [id number] .Date: 08/25/2024 Exam Time: 4:26:00 PM Study Type:ECHO WITH CARDIAC DOPPLER COMP Height: 69 in Weight: 161 lb BSA: 1.88 m2 Age: 8 1950,74Y Sex: M BP: 116/43 HR: 72 bpm Sonogrphr: Keisha Max Pat. Stat.:Inpatient Room: 454 Reason for Study:Atrial fibrillation / flutter Procedures: [...] 08/26/2024 Echocardiography Report Pat.Name: JAYLEEN CHAVEZ Pat.ID: [id number] .Date: 08/25/2024 Exam Time: 4:26:00 PM Study [...] (ABNORMAL) HEMOGLOBIN, GLYCOSYLATED (08/25/2024 6:44 AM CDT) HGB A1C 5.9(H) <5.7 % 08/25/2024 9:03 AM CDT [facility] Comment: ADA GUIDELINES 2010 5.7 TO 6.4% INCREASED RISK OF DIABETES > OR = 6.5% CONSISTENT WITH DIABETES ESTIMATED AVG GLUCOSE 123 mg/dL 08/25/2024 9:03 AM CDT [facility] 08/25/2024 6:44 AM CDT Joann Sherman NP LABORATORY Final Result [facility] [address] [place] [address], * (ABNORMAL) PRO-BRAIN NATRIURETIC PEPTIDE (08/24/2024 8:14 PM CDT) Pathologist [facility] PRO-B TYPE NATRIURETIC PEPTIDE 4,591(H) <450 PG/ML 08/24/2024 9:14 PM CDT [facility] Comment: CUT POINTS ESTABLISHED BY [...] FOR ACUTE CHF. 08/24/2024 8:[address] [facility] LABORATORY Final Result [facility] [address] [place] [address], * CT HEAD WO CON (08/24/2024 4:59 PM CDT) Anatomical Region Laterality Modality Head Computed Tomogra phy 08/24/2024 5:31 PM CDT Impressions 08/24/2024 5:33 PM CDT IMPRESSION: 1. No definite CT evidence of acute intracranial abnormality, as above. 2. Small vessel disease and volume loss. Ordered By: ISMAEL BRENNAN Interpreted By: Owen Hermosillo MD, 08/24/2024 5:31 PM Narrative 08/24/2024 5:33 PM CDT [facility] [address] [place], [place] [address] DATE: 08/24/2024 4:53 PM EXAMINATION: CT of [...] Procedure Note Owen Hermosillo MD - 08/24/2024 [facility] [address] [place], [place] [address] DATE: 08/24/2024 4:53 PM EXAMINATION: CT of [...] of2 resultswithin the time period is included. Ismael Sabillon MD - 08/24/2024 4:25 PM CDT Ismael [...] 116. No ectopy us Ismael Brennan MD [place] [facility]ANCISCO Final Result * ECG 12 lead (08/24/2024 4:12 PM CDT) Only the most recent of2 resultswithin the time period is included. 08/24/2024 4:12 PM CDT Narrative [facility] RAD - 08/25/2024 8:51 PM CDT [facility] Test Date: 2024-08-24 Pat Name: JAYLEEN COOK MACY Department: 41 Room: B4 Gender: Male [employer] Closer: [facility] : 1950 Requested By: ROSARIO MOCK Order Number: [id number] Reading MD: Irina Moody Measurements Intervals [place] Rate: 116 P: 0 FL: 0 QRS: 65 QRSD: 154 T: 39 QT: 359 QTc: 500 Interpretive Statements ATRIAL FIBRILLATION WITH RAPID VENTRICULAR RESPONSE RIGHT BUNDLE BRANCH BLOCK [120+ ms QRS DURATION, UPRIGHT V1, 40+ ms S IN I/aVL/V4/V5/V6] Compared to ECG 08/24/2024 14:11:33 No significant changes Procedure Note Irina Moody MD - 08/25/[address]24 [facility] [address] Test Date: 2024-08-24 Pat Name: JAYLEEN ROBLESOSO Department: 41 Room: B454 Gender: Male [employer] Loan Closer: [facility] : 1950 Requested By: ROSARIO MOCK Order Number: [id number] Reading MD: Irina Moody Measurements Intervals [place] Rate: 116 P: 0 FL: 0 QRS: 65 QRSD: 154 T: 39 QT: 359 QTc: 500 Interpretive Statements ATRIAL FIBRILLATION WITH RAPID VENTRICULAR RESPONSE RIGHT BUNDLE BRANCH BLOCK [120+ ms QRS DURATION, UPRIGHT V1, 40+ ms SIN I/aVL/V4/V5/V6] Compared to ECG 08/24/2024 14:11:33 No significant changes Rosario SPARKS ECG ORDERABLES Final Result Performing Organization Address City/[facility]/ZIP Co de Phone Number [facility] * TROPONIN, QUANT (08/24/2024 4:08 PM CDT) Only the most recent of2 resultswithin the time period is included. TROPONIN I HIGH SENSITIVITY 32 <79 ng/L 08/24/2024 4:48 PM CDT [facility] Comment: HIGH DOSES OF BIOTIN, TROPONIN-SPECIFIC AUTOANTIBODIES, AND ANTIBODY THERAPY CONTAINING HAMA MAY INTERFERE WITH THIS TEST RESULT. CORRELATION TO CLINICAL HISTORY AND PRESENTATION RECOMMENDED. 08/24/2024 4:08 PM CDT us Rosario SPARKS LABORATORY Final Result Performing Organization Address City/[facility]/ZIP Co de Phone Number [facility] [address] [place] [address], [place] [phone] * LACTIC ACID W REFLEX (SEPSIS) (08/24/2024 3:36 PM CDT) LACTIC ACID VENOUS 0.8 0.4 - 2.0 MMOL/L 08/24/2024 4:15 PM CDT [facility] 08/24/2024 3:36 PM CDT us Ismael Brennan MD LABORATORY Final Result Performing Organization Address City/[facility]/ZIP Co de Phone Number [facility] [address] [place] [address], [place] [phone] * PARTIAL THROMBOPLASTIN TIME,PTT (08/24/2024 3:36 PM CDT) PTT 30.4 25.1 - 36.5 SEC 08/24/2024 4:22 PM CDT [facility] 08/24/2024 3:36 PM CDT Ismael Brennan MD LABORATORY Final Result Performing Organization Address [facility] Co de Phone Number [facility] [address] [place] [address], * (ABNORMAL) PROTIME/INR, VENOUS (08/24/2024 3:36 PM CDT) PROTIME 13.3(H) 10.2 - 12.9 SEC 08/24/2024 4:22 PM CDT [facility] INR 1.2 08/24/2024 4:22 PM CDT [facility] Comment: Recommended INR Therapeutic Goals: 2.0-3.0 Routine Therapy 2.5-3.5 Mechanical Prosthetic Valves (High Risk) 08/24/2024 3:36 PM CDT us Ismael Brennan MD LABORATORY Final Result Performing Organization Address City/[facility]/ZIP Co de Phone Number [facility] [address] [place] [address], [place] [phone] * LIPASE (08/24/2024 3:36 PM CDT) LIPASE 32 13 - 75 UNITS/L 08/24/2024 4:11 PM CDT [facility] 08/24/2024 3:36 PM CDT Ismael Brennan MD LABORATORY Final Result [facility] [address] [place] [address], * XR CHEST PORTABLE (08/24/2024 2:40 PM CDT) Anatomical Region Laterality Modality Chest Radiographic Marie ging 08/24/2024 2:42 PM CDT Impressions 08/24/2024 2:44 PM CDT =====IMPRESSION:===== Mild cardiomegaly, central pulmonary vascular congestion, and interstitial edema. Ordered By: ROSARIO MOCK Interpreted By: Davin Corral MD, 08/24/2024 2:42 PM Narrative 08/24/2024 2:44 PM [address]T [address] [address] Examination: Chest x-ray 1 view Exam date/time: [...] Procedure Note Davin Corral MD - 08/24/2024 [facility] [address] Examination: Chest x-ray 1 view Exam date/time: [...] 5:56 PM Narrative 08/20/2024 5:56 PM CDT [address] [address] 2 VIEWS OF THE CHEST Clinical history: End-stage renal disease Comparison: May 28, 2024 2 views of the chest demonstrate the cardiac silhouette to be normal in size and appears stable. The pulmonary vessels appear normal. The Lungs are clear. No consolidations or effusions are seen. Procedure Note Minor Jo MD - 08/20/2024 [facility] [address] [place], [place] [address] 2 VIEWS OF THE CHEST Clinical history: [...] - 80.1 PG/ML 08/20/2024 4:19 PM CDT [facility] 08/20/2024 3:42 PM CDT us Tirso Cooper MD LABORATORY Final Result [facility] [address] [place] [address], [place] [phone] * HEPATITIS B SURFACE AG, EIA (08/20/2024 3:42 PM CDT) HEPATITIS B SURFACE AG NON-REACTI VE NON-REACTI VE 08/20/2024 4:30 PM CDT [facility] 08/20/2024 3:42 PM CDT us Tirso Cooper MD LABORATORY Final Result Performing Organization Address City/[facility]/ZIP Co de Phone Number [facility] [address] [place] [address], [place] [phone] * HEPATITIS B SURFACE ANTIBODY (08/20/2024 3:42 PM CDT) HEP B SURFACE AB NON-REACTI VE 08/20/2024 5:24 PM CDT [facility] 08/20/2024 3:42 PM CDT Tirso Cooper MD LABORATORY Final Result Performing Organization Address [facility] Co de Phone Number [facility] [address] [place] [address], [place] [phone] * HEPATITIS B CORE ANTIBODY (08/20/2024 3:42 PM CDT) HEP B CORE TOTAL AB NON-REACTI VE NON-REACTI VE 08/20/2024 4:59 PM CDT [facility] 08/20/2024 3:42 PM CDT us Tirso Cooper MD LABORATORY Final Result Performing Organization Address City/[facility]/ZIP Co de Phone Number [facility] [address] [place] [address], [place] [phone] * (ABNORMAL) CBC, AUTO, NO DIFF (08/20/2024 3:42 PM CDT) Only the most recent of2 resultswithin the time period is included. WBC 7.79 4.5 - 11.0 x10'3/uL 08/20/2024 3:52 PM CDT [facility] RBC 2.59(L) 4.70 - 6.10 x10'6/uL 08/20/2024 3:52 PM CDT [facility] HGB 7.7(L) 14.0 - 18.0 G/DL 08/20/2024 3:52 PM CDT [facility] HCT 23.8(L) 43.0 - 54.0 % 08/20/2024 3:52 PM CDT [facility] MCV 91.9 80.0 - 94.0 FL 08/20/2024 3:52 PM CDT [facility] MCH 29.7 27.0 - 31.0 PG 08/20/2024 3:52 PM CDT [facility] MCHC 32.4 32.0 - 36.0 G/DL 08/20/2024 3:52 PM CDT [facility] RDW 16.1(H) 11.5 - 14.5 % 08/20/2024 3:52 PM CDT [facility] PLT 262 130 - 400 x10'3/uL 08/20/2024 3:52 PM CDT [facility] MPV 9.5 9.3 - 12.2 FL 08/20/2024 3:52 PM CDT [facility] 08/20/2024 3:42 PM CDT us Tirso Cooper MD LABORATORY Final Result [facility] [address] [place] [address], * VITAMIN D, 25 OH (07/26/2024 12:13 PM MACHINE TRIMMER) VITAMIN D 25 HYDROXY S/P/B 36 30 - 100 NG/ML 07/26/2024 2:07 PM MACHINE TRIMMER [facility] Comment: INTERPRETATION DEFICIENT <20 INSUFFICIENT 20-29 SUFFICIENT 30-100 07/26/2024 12:1 3 PM MACHINE TRIMMER Tirso Cooper MD LABORATORY Final Result Performing Organization Address City/[facility]/ZIP Co de Phone Number [facility] [address] [place] [address], [place] [phone] * URIC ACID BLOOD (07/26/2024 12:13 PM MACHINE TRIMMER) URIC ACID 4.6 3.5 - 7.2 MG/DL 07/26/2024 2:16 PM MACHINE TRIMMER [facility] 07/26/2024 12:1 3 PM MACHINE TRIMMER Tirso Cooper MD LABORATORY Final Result Performing Organization Address [facility] Co de Phone Number [facility] [address] [place] [address], [place] [phone] * (ABNORMAL) LIPID PANEL (10/12/2022 7:06 AM CDT) CHOLESTEROL 110 <200 MG/DL 10/12/2022 8:01 AM CDT [facility] TRIGLYCERIDES 134 <150 MG/DL 10/12/2022 8:01 AM CDT [facility] HDL 35(L) >40.0 MG/DL 10/12/2022 8:01 AM CDT [facility] LDL (CALCULATED) 48 <100 MG/DL 10/13/19 8:01 AM CDT [facility] NON HDL CHOLESTEROL 75 <130 MG/DL 10/12 8:01 AM CDT [facility] CHOL/HDL RATIO 3.1 0.0 - 4.5 10/12/2022 8:01 AM CDT [facility] VLDL CALCULATION 27 5 - 55 MG/DL 10/12/2022 8:01 AM CDT [facility] LIPID INTERPRETATION 10/12/2022 8:01 AM CDT [facility] Comment: [facility] REPORT RECOMMENDATIONS: ADULT CHILD LOW RISK: CHOLESTEROL <200 <170 TRIGLYCERIDE <150 --- HDL >=60 --- LDL <100 <110 BORDERLINE: CHOLESTEROL 200-239 170-199 TRIGLYCERIDE 150-199 --- HDL 40-59 --- LDL 100-159 110-129 HIGH RISK: CHOLESTEROL >=240 >=200 TRIGLYCERIDE >=200 --- HDL <40 --- LDL >=160 >=130 10/12/2022 7:06 AM CDT us Josseline Tabares MD LABORATORY Final Result [facility] [address] [place] [address], [place] [phone] * HEPATITIS PANEL,ACUTE (05/30/2021 1:20 PM MACHINE TRIMMER) HEPATITIS B SURFACE AG NON-REACTI VE NON-REACTI VE 05/30/2021 3:16 PM MACHINE TRIMMER [facility] HEP B CORE IGM NON-REACTI VE NON-REACTI VE 05/30/2021 3:16 PM MACHINE TRIMMER [facility] HAV IGM NON-REACTI VE NON-REACTI VE 05/30/2021 3:16 PM MACHINE TRIMMER [facility] HEPATITIS C AB NON-REACTI VE NON-REACTI VE 05/30/2021 3:16 PM MACHINE TRIMMER [facility] 05/30/2021 1:20 PM MACHINE TRIMMER us Tirso Cooper MD LABORATORY Final Result [facility] [address] [place] [address], from Last 3 Months or Most Recently Relevant to Health Maintenance Insurance MEDICAID AETNA Advance Directives * Full Code (Latest [...] 11:22 PM 06/03/2021 3:03 PM Care Teams Cytotechnologist/Histotechnologist Relationship Specialty Start Date End Date Chandler Geronimo DO [address] [place] [phone] PCP - General FAMILY PRACTICE 05/29/21
--- NOTE | 2024-10-16 14:49 | ED_ITS ---
HPI - Recheck/Abnormal Lab/Rx General Chief Complaint: Recheck/Abnormal Lab/Rx <Jackelin Menjivar PA-C - Last Filed: 10/16/24 19:43> Stated Complaint: abnormal labs, needs blood transfusion <Jackelin Menjivar PA-C - Last Filed: 10/16/24 19:43> Time Seen by Provider: 10/16/24 14:49 <Jackelin Menjivar PA-C - Last Filed: 10/16/24 19:43> Focused HPI: This is a 74 year old male that presents to the ER for need of blood transfusion. Reports history of ESRD. His dialysis is on //Fri. He did have dialysis today. His chief writer is Dr. Ward. Patient periodically requires blood transfusions. Reports recent outpatient blood work showing a hemoglobin in the 6 range. Patient reports weakness, fatigue, drowsiness. GENERAL: Chronically ill-appearing, well-nourished, and in no acute distress. HEAD: Normocephalic, atraumatic. CHEST: Clear to auscultation. ?No respiratory distress. HEART: Regular rate and rhythm.? NEURO: ?Alert and oriented x3. Patient screened in triage and initial orders placed.? ?Additional care and disposition to be based upon?diagnostic testing and treatment. <Jackelin Menjivar PA-C - Last Filed: 10/16/24 19:43> History of Present Illness HPI narrative: Agree with HPI. Last dialysis today. Has exertional shortness of breath. Daughter provides history has patient is very hard of hearing. <Erasmo Greene MD - Last Filed: 10/16/24 17:59> Related Data Home Medications: Home Medications ?Medication ?Instructions ?Recorded ?Confirmed ?Last Taken ?Type allopurinol 100 mg tablet See Rx Instructions .Route .COMPLEX 09/06/24 09/06/24 09/06/24 08:00 History 100 mg amiodarone 400 mg tablet 200 mg PO DAILY 09/06/24 09/06/24 09/06/24 08:00 History 200 mg apixaban 5 mg tablet (Eliquis) 5 mg PO Q12H 09/06/24 09/06/24 09/06/24 08:00 History 5 mg atorvastatin 20 mg tablet (Lipitor) 20 mg PO DAILY 09/06/24 09/06/24 09/05/24 22:00 History 20 mg calcitriol 0.25 mcg capsule 0.25 mcg PO BID 09/06/24 09/06/24 09/06/24 08:00 History 0.25 mcg doxazosin 4 mg tablet (Cardura) 4 mg PO QPM 09/06/24 09/06/24 09/05/24 22:00 History 4 mg ferrous sulfate 325 mg (65 mg 325 mg PO DAILY 09/06/24 09/06/24 09/06/24 08:00 History iron) tablet (iron) 325 mg furosemide 40 mg tablet 60 mg PO BID 09/06/24 09/06/24 09/06/24 08:00 History 60 mg metoprolol tartrate 25 mg tablet 25 mg PO DAILY 09/06/24 09/06/24 09/05/24 08:00 History 25 mg pantoprazole 40 mg tablet,delayed 40 mg PO QAM 09/06/24 09/06/24 09/06/24 08:00 History release (Protonix) 40 mg vitamin B complex-vitamin C-folic 1 tablet PO DAILY 09/06/24 09/06/24 09/05/24 10:00 History acid 800 mcg chewable tablet 1 tablet (Dialyvite 800) <Jackelin Menjivar PA-C - Last Filed: 10/16/24 19:43> Allergies/Adverse Reactions: Allergies Allergy/AdvReac Type Severity Reaction Status Date / Time No Known Allergies Allergy Unverified 09/06/24 13:40 <Jackelin Menjivar PA-C - Last Filed: 10/16/24 19:43> Review of Systems 2 Review of Systems: All systems reviewed & are unremarkable except as noted in HPI and below <Erasmo Greene MD - Last Filed: 10/16/24 17:59> Constitutional: Constitutional: Reports fatigue, Denies fever(s) and Reports weakness <Erasmo Greene MD - Last Filed: 10/16/24 17:59> Cardiovascular: Cardiovascular: Reports no additional cardiovascular complaints <Erasmo Greene MD - Last Filed: 10/16/24 17:59> Respiratory: Respiratory: Reports no additional respiratory complaints < Erasmo Greene MD - Last Filed: 10/16/24 17:59> Gastrointestinal: Gastrointestinal: Reports no additional gastrointestinal complaints <Erasmo Greene MD - Last Filed: 10/16/24 17:59> Musculoskeletal: Musculoskeletal: Reports no additional musculoskeletal complaints <Erasmo Greene MD - Last Filed: 10/16/24 17:59> [facility] Past Medical History Medical History: Medical History (Updated 10/16/24 @ 19:43 by Jackelin Menjivar PA-C) Diastolic congestive heart failure ANCA-associated vasculitis Hyperlipidemia Hyperuricemia Diabetes Hypertension Atrial fibrillation Anemia Pleural effusion Hypotension Acute on chronic anemia Pericardial effusion History of end stage renal disease <Jackelin Menjivar PA-C - Last Filed: 10/16/24 19:43> Surgical History Surgical History: Surgical History (Updated 09/11/24 @ 17:14 by Diana Ward MD) History of back surgery H/O bilateral cataract extraction <Jackelin Menjivar PA-C - Last Filed: 10/16/24 19:43> Family History Family History: Family History (Updated 09/06/24 @ 18:37 by Jackelin Franco RN) Father Myocardial infarct Sibling Myocardial infarct Mother Dementia <Jackelin Menjivar PA-C - Last Filed: 10/16/24 19:43> Social History Social History: Social History Smoking status: Former smoker Additional smoking assessment comments: quit many years ago Alcohol intake: never Substance use: never Do You Feel Safe in your Home?: Yes Lack of Transportation: No Lack of Food: Never True Current Housing: I Have Housing Concerned About Future Housing: No Difficulty Paying Gas/Electric Bills: No Difficulty Paying for Meds: No Currently Unemployed: No Education: High School Diploma/GED Difficulty w/ Childcare or Family Care: No Spiritual care concerns: No <Jackelin Menjivar PA-C - Last Filed: 10/16/24 19:43> Exam 2 Narrative: GENERAL: Chronically ill-appearing, well-nourished, and in no acute distress. HEAD: Normocephalic, atraumatic. ENT: Mucous membranes moist. CHEST: Clear to auscultation. No respiratory distress. HEART: Regular rate and rhythm. Normal peripheral pulses.Murmur heard in all quadrants. ABDOMEN: Soft, nontender, nondistended. EXTREMITIES: Normal range of motion. No edema. SKIN: Warm, dry, no rash. NEURO: Alert and oriented x3. PSYCH: Normal mood and affect. <Erasmo Greene MD - Last Filed: 10/16/24 17:59> Course Course Emergency Course: Resting comfortably. Admit to hospitalist service. 2 units of blood ordered for transfusion. <Erasmo Greene MD - Last Filed: 10/16/24 17:59> Vital Signs Vital signs: Vital Signs Temperature 98.1 F 10/16/24 13:23 Pulse Rate 66 10/16/24 13:23 Respiratory Rate 14 10/16/24 13:23 Blood Pressure 123/35 L 10/16/24 13:23 Pulse Oximetry 95 10/16/24 13:23 Oxygen Delivery Room Air 10/16/24 13:23 Temperature 97.9 F 10/16/24 19:00 Pulse Rate 72 10/16/24 19:00 Respiratory Rate 16 10/16/24 19:00 Blood Pressure 136/49 L 10/16/24 19:00 Pulse Oximetry 100 10/16/24 19:00 Oxygen Delivery Room Air 10/16/24 15:30 <Jackelin Menjivar PA-C - Last Filed: 10/16/24 19:43> Vital Signs Temperature 98.1 F 10/16/24 13:23 Pulse Rate 66 10/16/24 13:23 Respiratory Rate 14 10/16/24 13:23 Blood Pressure 123/35 L 10/16/24 13:23 Pulse Oximetry 95 10/16/24 13:23 Oxygen Delivery Room Air 10/16/24 13:23 Temperature 97.9 F 10/16/24 19:00 Pulse Rate 72 10/16/24 19:00 Respiratory Rate 16 10/16/24 19:00 Blood Pressure 136/49 L 10/16/24 19:00 Pulse Oximetry 100 10/16/24 19:00 Oxygen Delivery Room Air 10/16/24 15:30 <Erasmo Greene MD - Last Filed: 10/16/24 17:59> MDM - Recheck/Abnormal Lab/Rx Lab Data Result diagrams: 10/16/24 15:35 10/16/24 15:35 <Jackelin Menjivar PA-C - Last Filed: 10/16/24 19:43> Labs: Lab Results 10/16/24 Range/Units 15:35 WBC 7.3 (4.5-10.0) K/mm3 RBC 1.55 L (4.6-6.20) M/mm3 Hgb 5.2 L* (14.0-18.0) g/dL Hct 17.0 L* (42.0-52.0) % MCV 109.7 H (80-100) fl MCH 33.5 (26-34) pg MCHC 30.6 L (32-36) g/dl RDW 18.0 H (11.5-14.5) % Plt Count 255 (150-375) k/mm3 MPV 8.9 (7.4-10.4) fl Immature Gran % (Auto) 0.4 (0-0.5) % Neut % (Auto) 81.9 H (45.5-73.1) % Lymph % (Auto) 8.0 L (18.3-44.2) % [place] % (Auto) 6.0 (2.6-8.5) % Eos % (Auto) 3.0 (0-4.4) % Baso % (Auto) 0.7 (0.2-1.2) % Lymph # (Auto) 0.58 L (0.9-3.2) K/mm3 [place] # (Auto) 0.4 (0.1-0.6) K/mm3 Eos # (Auto) 0.2 (0-0.3) K/mm3 Baso # (Auto) 0.1 (0.0-0.1) K/mm3 Abs Immat Gran (auto) 0.03 (0.00-0.031) K/mm3 Absolute Neuts (auto) 6.0 (1.3-6.7) K/mm3 Absolute Nucleated RBC 0.000 (0.0-0.012) K/mm3 Band Neutrophils % Not Reportable Nucleated RBC % 0.0 (0.0-0.2) % Platelet Estimate Adequate (Adequate) Hypochromasia 2+ Anisocytosis 2+ Ovalocytes 1+ Schistocytes None seen PT 15.3 H (11.1-14.7) Seconds INR 1.2 APTT 34.6 (22.3-36.8) Seconds Sodium 138 (137-145) mmol/L Potassium 3.7 (3.4-5.0) mmol/L Chloride 95 L (98-107) mmol/L Carbon Dioxide 36 H (22-30) mmol/L Anion Gap 7 (4-12) mmol/L BUN 53 H D (9-20) mg/dL Creatinine 2.89 H (0.7-1.3) mg/dL Estim Creat Clear Calc 20 ml/min Estimated GFR 21 L (59 - ) Glucose 144 H (65-110) mg/dL Calcium 7.8 L (8.4-10.2) mg/dL Blood Type O Positive Antibody Screen Negative Crossmatch See Detail <Jackelin Menjivar PA-C - Last Filed: 10/16/24 19:43> Lab Results 10/16/24 Range/Units 15:35 WBC 7.3 (4.5-10.0) K/mm3 RBC 1.55 L (4.6-6.20) M/mm3 Hgb 5.2 L* (14.0-18.0) g/dL Hct 17.0 L* (42.0-52.0) % MCV 109.7 H (80-100) fl MCH 33.5 (26-34) pg MCHC 30.6 L (32-36) g/dl RDW 18.0 H (11.5-14.5) % Plt Count 255 (150-375) k/mm3 MPV 8.9 (7.4-10.4) fl Immature Gran % (Auto) 0.4 (0-0.5) % Neut % (Auto) 81.9 H (45.5-73.1) % Lymph % (Auto) 8.0 L (18.3-44.2) % [place] % (Auto) 6.0 (2.6-8.5) % Eos % (Auto) 3.0 (0-4.4) % Baso % (Auto) 0.7 (0.2-1.2) % Lymph # (Auto) 0.58 L (0.9-3.2) K/mm3 [place] # (Auto) 0.4 (0.1-0.6) K/mm3 Eos # (Auto) 0.2 (0-0.3) K/mm3 Baso # (Auto) 0.1 (0.0-0.1) K/mm3 Abs Immat Gran (auto) 0.03 (0.00-0.031) K/mm3 Absolute Neuts (auto) 6.0 (1.3-6.7) K/mm3 Absolute Nucleated RBC 0.000 (0.0-0.012) K/mm3 Band Neutrophils % Not Reportable Nucleated RBC % 0.0 (0.0-0.2) % Platelet Estimate Adequate (Adequate) Hypochromasia 2+ Anisocytosis 2+ Ovalocytes 1+ Schistocytes None seen PT 15.3 H (11.1-14.7) Seconds INR 1.2 APTT 34.6 (22.3-36.8) Seconds Sodium 138 (137-145) mmol/L Potassium 3.7 (3.4-5.0) mmol/L Chloride 95 L (98-107) mmol/L Carbon Dioxide 36 H (22-30) mmol/L Anion Gap 7 (4-12) mmol/L BUN 53 H D (9-20) mg/dL Creatinine 2.89 H (0.7-1.3) mg/dL Estim Creat Clear Calc 20 ml/min Estimated GFR 21 L (59 - ) Glucose 144 H (65-110) mg/dL Calcium 7.8 L (8.4-10.2) mg/dL Blood Type O Positive Antibody Screen Negative Crossmatch See Detail <Erasmo Greene MD - Last Filed: 10/16/24 17:59> Discharge Plan Discharge Clinical Impression: ESRD (end stage renal disease) Anemia Qualifiers: Anemia type: unspecified type Qualified Code(s): D64.9 - Anemia, unspecified <Jackelin Menjivar PA-C - Last Filed: 10/16/24 19:43> Patient Disposition: Still a Patient <Jackelin Menjivar PA-C - Last Filed: 10/16/24 19:43> Condition: Stable <Jackelin Menjivar PA-C - Last Filed: 10/16/24 19:43>
[2024-10-16 15:42] LABS: Basophils Absolute Auto 0.1 K/mm3 (0.0-0.1); Basophils Percent Auto 0.7 % (0.2-1.2); Eosinophils Absolute Auto 0.2 K/mm3 (0-0.3); Immature Granulocyte Absolute 0.03 K/mm3 (0.00-0.031); Immature Granulocyte Percent A 0.4 % (0-0.5); Lymphocytes Absolute Auto 0.58 K/mm3 (0.9-3.2); Mean Corpuscular HGB Conc 30.6 g/dl (32-36); Mean Corpuscular Hemoglobin 33.5 pg (26-34); Mean Corpuscular Volume 109.7 fl (80-100); Mean Platelet Volume 8.9 fl (7.4-10.4); Monocytes Absolute Auto 0.4 K/mm3 (0.1-0.6); Neutrophils Percent Auto 81.9 % (45.5-73.1); Platelet Count Result 255 k/mm3 (150-375); Red Blood Count 1.55 M/mm3 (4.6-6.20); White Blood Count 7.3 K/mm3 (4.5-10.0)
[2024-10-16 15:55] LABS: Anion Gap 7 mmol/L (4-12); Blood Urea Nitrogen 53 mg/dL (9-20); Calcium 7.8 mg/dL (8.4-10.2); Carbon Dioxide 36 mmol/L (22-30); Chloride 95 mmol/L (98-107); Estimated CRCL calculation 20 ml/min; Estimated Glomerular Filt Rate 21; Glucose 144 mg/dL (65-110); Potassium 3.7 mmol/L (3.4-5.0); Sodium 138 mmol/L (137-145)
[2024-10-16 16:00] LABS: INR 1.2; Prothrombin Time 15.3 Seconds (11.1-14.7)
[2024-10-16 16:01] LABS: Hemoglobin 5.2 g/dL (14.0-18.0); Partial Thromboplastin Time 34.6 Seconds (22.3-36.8)
[2024-10-16 16:02] LABS: Hypochromasia 2+; Platelet Estimate Adequate (Adequate)
[2024-10-16 16:03] LABS: Anisocytosis 2+; Ovalocytes 1+
[2024-10-16 16:06] LABS: Schistocytes None Seen
--- OUTSIDE RECORDS SUMMARY | 2024-10-16 16:13 | XMS_ITS | Encounter Summary ---
Author Organization [facility] Address [address] [place] [address] Care Team Providers Care Office Clerk Assistant Name Role Phone Chandler Geronimo DO Primary Care Provide r Encounter Details Date Type Department Care Team (Late st Contact Info) Description 07/28/[address] [facility] [address] [id number] [place], [facility] Provider Orders Social History Tobacco Use Types Packs/Day Years Used Date Smoking Tobacco: Never Smokeless Tobacco: Never Alcohol Use Standard Drinks/Week Comments Never 0 (1 standard drink = 0.6 oz pur e alcohol) [facility] Utilities Answer Date Recorded In the past 12 months has [facility] [place], oil, or water [facility] threatened to shut off services in your [...] declined 10/10/2022 How often do you attend uatsdin or sabianism serv ices? Patient declined 10/10/2022 Do you belong to any clubs o r organizations such as uatsdin groups, unions, fraternal or athletic groups, or [...] Recorded Patient Health Questionnaire-2 Score 0 07/26/2024 [facility] - Occupational [...] living in a halfway (including now)? 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
--- OUTSIDE RECORDS SUMMARY | 2024-10-16 16:13 | XMS_ITS | Clinical Summary ---
Author Organization [facility] Address [address] [place] [address] Care Team Providers Care Office Communication Professor Name Role Phone Chandler Geronimo DO Primary [...] by mouth daily. Active epoetin rosette-epbx (RETACRIT) 31452 Units/mL injectionIndications:E nd Stage Renal Disease on Hemodialysis Inject 1 mL (10,000 Units total) into the skin 3 (three) times a week. Indications: [employer]quet [employer] Server Kidney Failure Treated with Hemodialysis On Friday, Friday and Friday with hemodialysis 12 mL 025 Active allopurinol (ZYLOPRIM) 100 MG tabletIndications:Hype ruricemia Take 1 tablet (100 mg total) by mouth 3 (three) times a week. On Friday, Friday and Friday after hemodialysis 12 tablet 025 Active furosemide (LASIX) 40 MG tabletIndications:ESRD (end stage renal disease) on dialysis ([facility]) Take 3 tablets (120 mg total) by mouth 2 (two) times a day, 3 (three) days a week. Take 3 tablets (120 mg total) two times a day on non-dialysis days (Friday, Friday, and Friday) 96 tablet 025 Active B evknfra-X-noluf acid 0.8 mg (DIALYVITE/NEPHRO-ROMINA ) Tab tabletIndications:End stage renal disease ([facility]) Take 1 tablet by mouth daily. [...] stage 5, GFR less than 15 ml/min ([facility] HHS/HCC),Secondary hyperparathyroidism (HHS/HCC),Primary hypertension,Hyperkale abbie Take 1 tablet (4 mg total) by mouth nightly at bedtime. 90 tablet 3 025 Active ferrous sulfate, 65 mg elemental, 325 (65 FE) MG tabletIndications:CKD (chronic kidney disease) stage 5, GFR less than 15 ml/min ([facility] HHS/HCC),Secondary hyperparathyroidism (HHS/HCC),Primary hypertension,Hyperkale abbie Take 1 tablet (325 mg total) by mouth daily with breakfast. 90 tablet 3 025 Active doxazosin (CARDURA) 4 MG tabletIndications:CKD (chronic kidney disease) stage 5, GFR less than 15 ml/min ([facility]),Secondary hyperparathyroidism ([facility]),Primary hypertension,Hyperkale abbie Take 1 tablet (4 mg total) by mouth nightly at bedtime. 30 tablet 11 025 2024 Disconti nued(Reo rder) ferrous sulfate, 65 mg elemental, 325 (65 FE) MG tablet Take 1 tablet (325 mg total) by mouth daily with breakfast. 2024 Disconti nued(Reo rder) Active Problems Problem Noted Date Diagnosed Date Atrial fibrillation with RVR ([facility]) 0 08/24/2024 Diastolic heart failure ([facility]) 2024 ESRD (end stage renal diseas e) on dialysis ([facility]) 06/01/2024 GIB (gastrointestinal bleeding) 05/27/2024 Hyperlipidemia 12/23/2022 Iron deficiency anemia 10/21/2022 LEANDRO (acute kidney injury) 10/11/2022 Anemia due to chronic renal failure treated with erythropoietin, unspecified CKD stage 10/10/2022 CKD (chronic kidney disease) stage 4, GFR 15-29 ml/min ([facility]) 11/22/2021 Albuminuria 10/08/2021 Vitamin D insufficiency 08/30/2021 Acidosis 07/16/2021 Hyperuricemia 07/16/2021 Anemia in stage 5 chronic ki dney disease, not on chronic dialysis (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 ([facility]) 06/28/2021 ANCA-associated vasculitis ([facility]) Edema, unspecified type 06/28/2021 Acute kidney injury 05/29/2021 Resolved Problems Problem Noted Date Diagnosed Date Resolved Date Pneumonia 06/13/2021 06/19/2021 Encounters Date Type Department Care Team Description 10/08/2024 Telephone [facility], [address] [place] [address] Layton Herrera MD Referral ([facility] FOR PD CATH) 10/07/2024 Orders Only [facility] - [facility] [address] [facility], [address] [place] [phone] Christiana Goel LPN 10/07/2024 Telephone [facility] [address] [phone] Tirso Cooper MD Error 10/06/2024 2:00 PM CDT Office Visit [facility] [address] [place] [address] Layton Herrera MD Follow Up 10/06/2024 Travel 09/03/2024 Hospital Follow-up Call [facility] Management [facility] [place] [address] Jen Larson, ALICIA Follow Up Call (MARA 08/24-09/01/24) 09/01/2024 Telephone [facility] [address] [place] [address] Chayo Segura PA Medication Information 09/01/2024 MyChart Message Enc [facility] - [facility] [address] [facility], [address] [place] [phone] Tirso Cooper MD question 08/31/2024 Telephone [facility] - [facility] [address] [facility], [address] [place] [phone] Tirso Cooper MD Question 08/26/2024 [facility] [address] [address] Tirso Cooper MD Question; Referral 08/24/2024 2:18 PM CDT - 09/01/2024 2:42 PM CDT Hospital Encounter [facility] [place] [address] Ismael Brennan MD Jumean, Khaled, MD Conti, Ori Nagel, Radah Clay, ANTON Hawk, Savanna Montilla, WILDER Woodson, ALEX Bay Dizziness; Chest Pain Discharge Disposition: Home or Self Care (Routine Discharge) 08/24/2024 [facility] - [address] [address] Tirso Cooper MD Information 08/24/2024 Travel 08/24/2024 Telephone [facility] [address] [phone] Tirso Cooper MD Question 08/23/2024 Telephone [facility] [address] [phone] Tirso Cooper MD Error 08/20/2024 3:20 PM CDT - 08/20/2024 11:59 PM CDT Hospital Encounter [facility] [place] [address] Tirso Cooper MD Discharge Disposition: Home or Self Care (Routine Discharge) 08/20/2024 3:20 PM CDT Hospital Encounter [facility] [place] [address] Tirso Cooper MD Discharge Disposition: Home or Self Care (Routine Discharge) 08/20/2024 Travel 08/20/2024 [facility]phone [facility] [address], [address] [place] [address] Tirso Cooper MD Information 08/19/2024 3:00 PM CDT Treatment [facility]fusion [facility] at [facility] [place] [address] Tirso Cooper MD Injection 08/19/2024 Orders [facility] [address], [address] [place] [address] Tirso Cooper MD 08/19/2024 [facility]phone [facility] [address], [facility] [address] [place] [address] Tirso Cooper MD Information 08/19/2024 Travel 08/16/2024 Telephone [facility] [address] [phone] Tirso Cooper MD Error 08/05/2024 3:00 PM DOLL EYE SETTER Treatment [facility]fusion Services at [facility] [place] [address] Tirso Cooper MD Injection 08/05/2024 Travel 07/29/2024 Telephone [facility] [address] [phone] Tirso Cooper MD Medication 07/28/2024 MyChart Message Enc [facility] [address] [phone] [facility] Provider Orders 07/28/2024 Orders Only [facility] [place] [address] Tirso Cooper MD 07/26/2024 11:52 AM DOLL EYE SETTER - 07/26/2024 11:59 PM DOLL EYE SETTER Hospital Encounter [facility] [place] [address] Tirso Cooper MD Discharge Disposition: Home or Self Care (Routine Discharge) 07/26/2024 11:00 AM DOLL EYE SETTER Office Visit [facility] - [address], [address] [phone] Tirso Cooper MD CKD Follow-up 07/26/2024 Telephone [facility] [address], [facility] [address] [place] [address] Tirso Cooper MD Results 07/26/2024 Telephone [facility] [address] [phone] Tirso Cooper MD Results 07/26/2024 Travel 07/22/2024 3:00 PM DOLL EYE SETTER Treatment [facility] [place] [address] Tirso Cooper MD 07/22/2024 2:15 PM DOLL EYE SETTER Office [facility] [address] [place] [address] Layton Herrera MD Surgery Follow Up 07/22/2024 Travel from Last 3 Months Immunizations Immunization Administration Dates Next Due Influenza (Generic) 05/03/2024,02/18/2014 Influenza Adult (Generic) 04/17/2023,04/05/2021 PFIZER COVID-19 (ORIGINAL FO RMULATION, PURPLE CAP) mRNA, LNP-S, PF, 30 MCG/0.3 ML DOSE 12/22/2021,10/04/2020 Pneumococcal (Pneumovax 23) 02/19/2024, 4,06/20/2013 Pneumococcal (Prevnar 13) 11/26/2017 Pneumococcal (Prevnar 20) 05/03/2024 Tdap (Generic) 08/27/2016,02/25/2016 Zoster (Zostavax) [address] Unt/0.65Ml 02/25/2016 Family History Medical History Relation [...] drink = 0.6 oz pur e alcohol) [facility] [employer] Answer Date Recorded In the past 12 months has [email or web address], oil, or water App[employer]ation threatened to shut off services in your [...] declined 10/10/2022 How often do you attend rastafari or muslim serv ices? Patient declined 10/10/2022 Do you belong to any clubs o r organizations such as rastafari groups, unions, fraternal or athletic groups, or [...] Recorded Patient Health Questionnaire-2 Score 0 07/26/2024 [facility] - Occupational Stress Questionnaire Answer Date Recorded [...] living in a longterm (including now)? 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 [employer] Not on cindy e Not on file [...] (10 Years) Discontinued 05/29/2024, 05/28/2024 PHQ-2 (Physician [place]) Completed 07/26/2024 Colorectal Cancer Screening FIT/FOBT (1 [...] perform ADLs independently Lifestyle No El Vaughn pr manager - family caregiver with be involved in care transitions and discharge planning Lifestyle No 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, 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 Procedure Name Priority Date/Time Associated Diagnosis Comments [...] COMPREHENSIVE METABOLIC PANEL Routine 08/05/2024 3:45 PM DOLL EYE SETTER Anemia in stage 5 chronic kidney disease, not on chronic dialysis (CMS/HCC HHS/HCC) CBC W/DIFF AUTOMATED Routine 08/05/2024 3:45 PM DOLL EYE SETTER Anemia in stage 5 chronic kidney disease, not on chronic dialysis (CMS/HCC HHS/HCC) CBC, AUTO, NO DIFF Routine 07/26/2024 12 :13 PM DOLL EYE SETTER CKD (chronic kidney disease) stage 5, GFR less than 15 ml/min (CMS/HCC HHS/HCC) URIC ACID BLOOD Routine 07/26/2024 12:13 PM DOLL EYE SETTER CKD (chronic kidney disease) stage 5, GFR less than 15 ml/min (CMS/HCC HHS/HCC) PTH - INTACT Routine 07/26/2024 12:13 PM DOLL EYE SETTER CKD (chronic kidney disease) stage 5, GFR less than 15 ml/min (CMS/HCC HHS/HCC) BASIC METABOLIC PANEL Routine 07/26/2024 12:13 PM DOLL EYE SETTER CKD (chronic kidney disease) stage 5, GFR less than 15 ml/min (CMS/HCC HHS/HCC) VITAMIN D, 25 OH Routine 07/26/2024 12:1 3 PM DOLL EYE SETTER CKD (chronic kidney disease) stage 5, GFR less than 15 ml/min (CMS/HCC HHS/HCC) COLONOSCOPY Routine 05/28/2024 12:12 PM DOLL EYE SETTER LIPID PANEL Routine 10/12/2022 7:06 AM CDT HEPATITIS PANEL,ACUTE Routine 05/30/2021 1:20 PM DOLL EYE SETTER from Last 3 Months or Most Recently Relevant to Health Maintenance Results * (ABNORMAL) POCT glucose (09/01/2024 12:55 PM CDT) Only the most recent of31 resultswithin the time period is included. GLUCOSE POC 108(H) 70 - 99 mg/dL 09/01/2024 1:02 PM CDT [facility] 09/01/2024 12:5 5 PM CDT Christiana Woodson [place] POCT ORDERABLES - DEVICE Final Result [facility] [address] [place] [address], [place] [phone] * (ABNORMAL) BASIC METABOLIC PANEL (09/01/2024 6:32 AM CDT) Only the most recent of6 resultswithin the time period is included. GLUCOSE 107(H) 70 - 99 MG/DL 09/01/2024 7:56 AM CDT [facility] BUN 80(H) 7 - 18 MG/DL 09/01/2024 7:56 AM CDT [facility] CREATININE S/P/B 6.60(HH) 0.7 - 1.3 MG/DL 09/01/2024 7:56 AM CDT [facility] Comment:NOT CALLED PER CRITI JARAD VALUE POLICY SODIUM S/P/B 135(L) 136 - 145 MMOL/L 09/01/2024 7:56 AM CDT [facility] POTASSIUM S/P/B 4.0 3.5 - 5.1 MMOL/L 09/01/2024 7:56 AM CDT [facility] CHLORIDE S/P/B 99 97 - 115 MMOL/L 09/01/2024 7:56 AM CDT [facility] CO2 23.6 21 - 32 MMOL/L 09/01/2024 7:56 AM CDT [facility] CALCIUM S/P/B 9.0 8.5 - 10.1 MG/DL 09/01/2024 7:56 AM CDT [facility] ANION GAP 12.4(H) 2 - 10 MMOL/L 09/01/2024 7:56 AM T [facility] BUN CREATININE RATIO 12.1 6 - 26 09/01/2024 7:56 AM T [facility] GFR ESTIMATE 8(L) >90 ML/MIN/1.7 3 M2 09/01/2024 7:56 AM T [facility] Comment: NOTE: eGFR is not [...] us Christiana JOHNSON LABORAT[facility] Final Res ult [facility] [address] [place] [address], * (ABNORMAL) CBC W/DIFF AUTOMATED (09/01/2024 6:32 AM CDT) Only the most recent of11 resultswithin the time period is included. WBC 8.99 4.5 - 11.0 x10'3/uL 09/01/2024 7:27 AM CDT [facility] RBC 2.57(L) 4.70 - 6.10 x10'6/uL 09/01/2024 7:27 AM CDT [facility] HGB 7.6(L) 14.0 - 18.0 G/DL 09/01/2024 7:27 AM CDT [facility] HCT 24.6(L) 43.0 - 54.0 % 09/01/2024 7:27 AM CDT [facility] MCV 95.7(H) 80.0 - 94.0 FL 09/01/2024 7:27 AM CDT [facility] MCH 29.6 27.0 - 31.0 PG 09/01/2024 7:27 AM CDT [facility] MCHC 30.9(L) 32.0 - 36.0 G/DL 09/01/2024 7:27 AM CDT [facility] RDW 18.3(H) 11.5 - 14.5 % 09/01/2024 7:27 AM CDT [facility] PLT 318 130 - 400 x10'3/uL 09/01/2024 7:27 AM CDT [facility] MPV 9.6 9.3 - 12.2 FL 09/01/2024 7:27 AM CDT [facility] DIFFERENTIAL TYPE AUTOMATED DIFFERENTIAL 09/01/2024 7:27 AM CDT [facility] NEUTROPHILS % 77.4 % 09/01/2024 7:27 AM CDT [facility] LYMPHOCYTES % 9.1 % 09/01/2024 7:27 AM CDT [facility] MONOCYTES % 10.3 % 09/01/2024 7:27 AM CDT [facility] EOSINOPHILS 2.0 % 09/01/2024 7:27 AM CDT [facility] BASOPHILS 0.4 % 09/01/2024 7:27 AM CDT [facility] IMMATURE GRANS % 0.8 % 09/02/19 7:27 AM CDT [facility] ABS. NEUTROPHILS 6.95 1.80 - 7.70 x10'3/uL 09/01/2024 7:27 AM CDT [facility] ABS. LYMPHOCYTES 0.82(L) 1.00 - 4.80 x10'3/uL 09/01/2024 7:27 AM CDT [facility] ABS. MONOCYTES 0.93(H) 0.30 - 0.82 x10'3/uL 09/01/2024 7:27 AM CDT [facility] ABS. EOSINOPHILS 0.18 0.04 - 0.54 x10'3/uL 09/01/2024 7:27 AM CDT [facility] ABS. BASOPHILS 0.04 0.01 - 0.08 x10'3/uL 09/01/2024 7:27 AM CDT [facility] ABS. IMMATURE GRANULOCYTES 0.07 0.00 - 0.49 x10'3/uL 09/01/2024 7:27 AM CDT [facility] 09/01/2024 6:32 AM CDT Christiana Woodson [facility] Final Res ult [facility] [address] [place] [address], * PHOSPHORUS, INORGANIC PHOSPHATE (08/31/2024 5:57 AM CDT) Only the most recent of2 resultswithin the time period is included. PHOSPHORUS 4.8 2.5 - 4.9 MG/DL 08/31/2024 11:18 AM CDT [facility] 08/31/2024 5:57 AM CDT Christiana Woodson [facility] Final Res ult Performing Organization Address City/[facility] [address]/[facility] Co de Phone Number [facility] [address] [place] [address], * MAGNESIUM (08/31/2024 5:57 AM CDT) Only the most recent of4 resultswithin the time period is included. MAGNESIUM 2.2 1.8 - 2.4 MG/DL 08/31/2024 11:18 AM CDT [facility] 08/31/2024 5:57 AM CDT Christiana Woodson [facility] Final Res ult Performing Organization Address City/[facility] [address]/ZIP Co de Phone Number [facility] [address] [place] [address], * MRI ENTEROGRAPHY (08/29/2024 12:01 PM CDT) [...] 1:18 PM Narrative 08/29/2024 1:34 PM CDT [address] [address] EXAM: MRI ENTEROGRAPHY DATE: 08/29/2024 COMPARISON: None. [...] Procedure Note Crispin Wagner MD - 08/29/2024 [facility] [address] [place], [place] [address] EXAM: MRI ENTEROGRAPHY DATE: 08/29/2024 COMPARISON: None. INDICATION: Anemia, dark stools. TECHNIQUE: Precontrast and postcontrast imaging with 15 cc intravenousDotarem right antecubital fossa. FINDINGS: In the dome of the liver near the IVC, there is a 2 cm ovoid [id number] lesion present. Minimal heterogeneity on the postcontrastimages. [...] urinary tract obstruction. There are numerous bilateral [id number] lesions in the kidneys. These are of [...] BLOOD, FECES (08/28/2024 11:48 AM CDT) Pathologist [facility] OCCULT BLOOD FECAL POSITIVE(A ) NEGATIVE 08/28/2024 12:57 PM CDT [facility] STOOL SPECIMEN / Unknown 08/28/2024 11:48 AM CDT Tirso Cooper MD BODY FLUIDS AND STOOLS ORDERAB LES Final Result [facility] [address] [place] [address], [place] [phone] * (ABNORMAL) COMPREHENSIVE METABOLIC PANEL (08/27/2024 5:23 AM CDT) Only the most recent of5 resultswithin the time period is included. GLUCOSE 117(H) 70 - 99 MG/DL 08/27/2024 6:33 AM CDT [facility] BUN 85(H) 7 - 18 MG/DL 08/27/2024 6:33 AM CDT [facility] CREATININE S/P/B 5.29(HH) 0.7 - 1.3 MG/DL 08/27/2024 6:33 AM CDT [facility] Comment:NOT CALLED PER CRITI JARAD VALUE POLICY SODIUM S/P/B 138 136 - 145 MMOL/L 08/27/2024 6:33 AM CDT [facility] POTASSIUM S/P/B 3.7 3.5 - 5.1 MMOL/L 08/27/2024 6:33 AM CDT [facility] CHLORIDE S/P/B 103 97 - 115 MMOL/L 08/27/2024 6:33 AM CDT [facility] CO2 27.2 21 - 32 MMOL/L 08/27/2024 6:33 AM CDT [facility] CALCIUM S/P/B 8.9 8.5 - 10.1 MG/DL 08/27/2024 6:33 AM CDT [facility] BILIRUBIN TOTAL S/P/B 0.5 0.2 - 1.2 MG/DL 08/27/2024 6:33 AM CDT [facility] Comment: THIS ASSAY IS NOT RECOMMENDED FOR PATIENTS UNDERGOING TREATMENT WITH ELTROMBOPAG DUE TO THE POTENTIAL FOR FALSELY ELEVATED RESULTS. TOTAL PROTEIN S/P/B 5.5(L) 6.4 - 8.2 G/DL 08/27/2024 6:33 AM CDT [facility] ALBUMIN S/P/B 2.6(L) 3.4 - 5.0 G/DL 08/27/2024 6:33 AM CDT [facility] AST 8(L) 15 - 37 U/L 08/27/2024 6:33 AM CDT [facility] ALT 19 16 - 60 U/L 08/27/2024 6:33 AM T [facility] ALKALINE PHOSPHATASE S/P/B 74 50 - 136 U/L 08/27/2024 6:33 AM CDT [facility] ANION GAP 7.8 2 - 10 MMOL/L 08/27/2024 6:33 AM CDT [facility] BUN CREATININE RATIO 16.1 6 - 26 08/27/2024 6:33 AM CDT [facility] A/G RATIO 0.9(L) 1.0 - 2.0 RATIO 08/27/2024 6:33 AM CDT [facility] GFR ESTIMATE 11(L) >90 ML/MIN/1.7 3 M2 08/27/2024 6:33 AM CDT [facility] Comment: NOTE: eGFR is not calculated for patients <18 years of age or gender unknown. This is an estimated GFR calculation using the new CKD EPI creatinine equation without race and so does not require a correction factor for race. This estimated GFR should not be used for calculating drug doses. 08/27/2024 5:23 AM CDT Joann Sherman NP LABORATORY Final Result [facility] [address] [place] [address], [place] [phone] * TRANSFUSE RED BLOOD CELLS (08/26/2024 11:33 AM CDT) Dagmar Barakat MD NURSING TREATMENT ORDERABLES - BLOOD ADMIN Final Result * (ABNORMAL) HEPARIN, ANTI XA, UFH (08/26/2024 6:05 AM CDT) Only the most recent of3 resultswithin the time period is included. HEPARIN ANTI XA UFH <0.04(L) 0.30 - 0.70 IU/ML 08/26/2024 7:05 AM CDT [facility] Comment: UFH Therapeutic Anti Xa Ranges: Medical Therapeutic Range: 0.30 - 0.70 IU/mL Cardiac Therapeutic Range: 0.30 - 0.50 IU/mL Neuro Therapeutic Range: 0.20 - 0.40 IU/mL 08/26/2024 6:05 AM CDT Ori Hodges PA-C LABORATORY Final Result [facility] [address] [place] [address], [place] [phone] * (ABNORMAL) IRON SAT PANEL (IRON,IBC,%SAT) (08/26/2024 6:05 AM CDT) IRON 14(L) 65.0 - 175.0 MCG/DL 08/26/2024 6:51 AM CDT [facility] IRON BINDING CAPACITY 218(L) 250 - 450 MCG/DL 08/26/2024 6:51 AM CDT [facility] IRON SATURATION 6(L) 20 - 55 % 6:51 AM CDT [facility] 08/26/2024 6:05 AM CDT Tirso Cooper MD LABORATORY Final Result Performing Organization Address City/[facility] [address]/ZIP Co de Phone Number [facility] [address] [place] [address], [place] [phone] * VITAMIN B-12 (08/26/2024 6:05 AM CDT) VITAMIN B12 S/P/B 934 254 - 1,320 PG/ML 08/26/2024 7:16 AM CDT [facility] 08/26/2024 6:05 AM CDT us Tirso Cooper MD LABORATORY Final Result [facility] [address] [place] [address], [place] [phone] * (ABNORMAL) FOLIC ACID SERUM (08/26/2024 6:05 AM CDT) FOLATE 36.9(H) 3.1 - 17.5 NG/ML 08/26/2024 7:16 AM CDT [facility] 08/26/2024 6:05 AM CDT Tirso Cooper MD LABORATORY Final Result Performing Organization Address City/[facility] [address]/ZIP Co de Phone Number [facility] [address] [place] [address], * FERRITIN (08/26/2024 6:05 AM CDT) FERRITIN 79.3 8.0 - 388.0 NG/ML 08/26/2024 7:16 AM CDT [facility] 08/26/2024 6:05 AM CDT Tirso Cooper MD LABORATORY Final Result Performing Organization Address City/[facility] [address]/ZIP Co de Phone Number [facility] [address] [place] [address], * (ABNORMAL) HEMOGLOBIN AND HEMATOCRIT (08/26/2024 1:11 AM CDT) Only the most recent of2 resultswithin the time period is included. HGB 6.7(LL) 14.0 - 18.0 G/DL 08/26/2024 1:43 AM CDT [facility] Comment: This result has been called to TREY BANUELOS by [id number] on 08/26/2024 01:42:49, and has been read back. HCT 20.9(L) 43.0 - 54.0 % 08/26/2024 1:43 AM CDT [facility] 08/26/2024 1:11 AM CDT Dagmar Barakat MD LABORATORY Final Result [facility] [address] [place] [address], * TYPE & SCREEN (08/26/2024 1:11 AM CDT) UNITS ORDERED 1 08/26/2024 2:09 AM CDT [facility] ABO/RH O POSITIVE 08/26/2024 2:09 AM CDT [facility] ANTIBODY SCREEN NEGATIVE 2:09 AM CDT [facility] SAMPLE EXPIRATION 08/29/2024,2359 08/26/2024 2:09 AM CDT [facility] BLOOD UNIT NUMBER [id number] 08/26/2024 2:10 AM CDT [facility] PRODUCT: PC LEUKOPOOR 08/26/2024 2:10 AM CDT [facility] UNIT DIVISION 00 08/26/2024 2:10 AM CDT [facility] BLOOD UNIT STATUS TRANSFUSED,FINAL 08/27/2024 8:06 AM CDT [facility] ISSUE DATE/TIME [id number] 8:06 AM CDT [facility] PRODUCT CODE [id number] 08/27/2024 8:06 AM CDT [facility] ABO/RH Unit O POS 08/27/2024 8:06 AM CDT [facility] ABO/RH UNIT ISBT CODE 5100 08/27/2024 8:06 AM CDT [facility] BLOOD UNIT EXPIRATION DATE [id number] 08/27/2024 8:06 AM CDT [facility] TRANSFUSION STATUS OK TO TRANSFUSE 08/26/2024 2:10 AM CDT [facility] CROSSMATCH COMPATIBLE-EXM 08/26/2024 2:10 AM CDT [facility] 08/26/2024 1:11 AM CDT Ori Hodges PA-C BLOOD BANK TEST ORDERABLES Fin al Result [facility] [address] [place] [address], [place] [phone] * USE ECHO 2D FU LTD W CON (08/25/2024 4:54 PM CDT) Anatomical Region Laterality Modality NA Echocardiogram 08/25/2024 4:26 PM CDT Narrative 08/26/2024 1:54 PM CDT Echocardiography Report Pat.Name: JAYLEEN CHAVEZ Pat.ID: [id number] .Date: 08/25/2024 Exam Time: 4:26:00 PM Study [...] 08/26/2024 Echocardiography Report Pat.Name: JAYLEEN CHAVEZ Pat.ID: [id number] .Date: 08/25/2024 Exam Time: 4:26:00 PM Study Type:ECHO WITH CARDIAC DOPPLER COMP Height: 69 in Weight: 161 lb BSA: 1.88 m2 Age: 8 1950,74Y Sex: M BP: 116/43 HR: 72 bpm Sonogrphr: Keisha Max Pat. Stat.:Inpatient Room: [facility] Reason for Study:Atrial fibrillation / flutter Procedures: [...] 5.9(H) <5.7 % 08/25/2024 9:03 AM CDT [facility] Comment: ADA GUIDELINES 2010 5.7 TO 6.4% INCREASED RISK OF DIABETES > OR = 6.5% CONSISTENT WITH DIABETES ESTIMATED AVG GLUCOSE 123 mg/dL 08/25/2024 9:03 AM CDT [facility] 08/25/2024 6:44 AM CDT Joann Sherman NP LABORATORY Final Result [facility] [address] [place] [address], * (ABNORMAL) PRO-BRAIN NATRIURETIC PEPTIDE (08/24/2024 8:14 PM CDT) Pathologist [facility] PRO-B TYPE NATRIURETIC PEPTIDE 4,591(H) <450 PG/ML 08/24/2024 9:14 PM CDT [facility] Comment: CUT POINTS ESTABLISHED BY [...] CDT [address] [facility]ORAT[facility] Final Result [facility] [address] [place] [address], * CT HEAD WO CON (08/24/2024 4:59 PM CDT) Anatomical Region Laterality Modality Head Computed Tomogra phy 08/24/2024 5:31 PM CDT Impressions 08/24/2024 5:33 PM CDT IMPRESSION: 1. No definite CT evidence of acute intracranial abnormality, as above. 2. Small vessel disease and volume loss. Ordered By: ISMAEL BRENNAN Interpreted By: Owen Hermosillo MD, 08/24/2024 5:31 PM Narrative 08/24/2024 5:33 PM CDT [facility] [address] [place], [place] [address] DATE: 08/24/2024 4:53 PM EXAMINATION: CT of [...] Procedure Note Owen Hermosillo MD - 08/24/2024 [facility] [address] [place], [place] [address] DATE: 08/24/2024 4:53 PM EXAMINATION: CT of [...] fibrillation. Heart rate 116. No ectopy us Ismale Brennan MD [facility] CARDIOVASCULAR [facility] SERVI JOSE FRANCISCO Final Result * ECG 12 lead (08/24/2024 4:12 PM CDT) Only the most recent of2 resultswithin the time period is included. 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[facility] : 1950 Requested By: ROSARIO MOCK Order Number: [id number] Reading MD: Irina Moody Measurements Intervals [place] Rate: 116 P: 0 RI: 0 QRS: 65 QRSD: 154 T: 39 QT: 359 QTc: 500 Interpretive Statements ATRIAL FIBRILLATION WITH RAPID VENTRICULAR RESPONSE RIGHT BUNDLE BRANCH BLOCK [120+ ms QRS DURATION, UPRIGHT V1, 40+ ms S IN I/aVL/V4/V5/V6] Compared to ECG 08/24/2024 14:11:33 No significant changes Procedure Note Irina Moody MD - 08/25/[address] Test Date: 2024-08-24 Pat Name: JAYLEEN ROBLESOSO Department: 41 Room: B454 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[facility] : 1950 Requested By: ROSARIO MOCK Order Number: [id number] Reading MD: Irina Moody Measurements Intervals [place] Rate: 116 P: 0 RI: 0 QRS: 65 QRSD: 154 T: 39 QT: 359 QTc: 500 Interpretive Statements ATRIAL FIBRILLATION WITH RAPID VENTRICULAR RESPONSE RIGHT BUNDLE BRANCH BLOCK [120+ ms QRS DURATION, UPRIGHT V1, 40+ ms SIN I/aVL/V4/V5/V6] Compared to ECG 08/24/2024 14:11:33 No significant changes Rosario SPARKS ECG ORDERABLES Final Result Performing Organization Address City/[facility] [address]/ZIP Co de Phone Number [facility] * TROPONIN, QUANT (08/24/2024 4:08 PM CDT) Only the most recent of2 resultswithin the time period is included. TROPONIN I HIGH SENSITIVITY 32 <79 ng/L 08/24/2024 4:48 PM CDT [facility] Comment: HIGH DOSES OF BIOTIN, TROPONIN-SPECIFIC AUTOANTIBODIES, AND ANTIBODY THERAPY CONTAINING HAMA MAY INTERFERE WITH THIS TEST RESULT. CORRELATION TO CLINICAL HISTORY AND PRESENTATION RECOMMENDED. 08/24/2024 4:08 PM CDT us Rosario SPARKS LABORATORY Final Result Performing Organization Address City/[facility] [address]/ZIP Co de Phone Number [facility] [address] [place] [address], [place] [phone] * LACTIC ACID W REFLEX (SEPSIS) (08/24/2024 3:36 PM CDT) LACTIC ACID VENOUS 0.8 0.4 - 2.0 MMOL/L 08/24/2024 4:15 PM CDT [facility] 08/24/2024 3:36 PM CDT us Ismael Brennan MD LABORATORY Final Result Performing Organization Address City/[facility] [address]/ZIP Co de Phone Number [facility] [address] [place] [address], [place] [phone] * PARTIAL THROMBOPLASTIN TIME,PTT (08/24/2024 3:36 PM CDT) PTT 30.4 25.1 - 36.5 SEC 08/24/2024 4:22 PM CDT [facility] 08/24/2024 3:36 PM CDT Ismael Brennan MD LABORATORY Final Result Performing Organization Address [facility] [address]/[facility] Co de Phone Number [facility] [address] [place] [address], * (ABNORMAL) PROTIME/INR, VENOUS (08/24/2024 3:36 PM CDT) PROTIME 13.3(H) 10.2 - 12.9 SEC 08/24/2024 4:22 PM CDT [facility] INR 1.2 08/24/2024 4:22 PM CDT [facility] Comment: Recommended INR Therapeutic Goals: 2.0-3.0 Routine Therapy 2.5-3.5 Mechanical Prosthetic Valves (High Risk) 08/24/2024 3:36 PM CDT us Ismael Brennan MD LABORATORY Final Result Performing Organization Address City/[facility] [address]/ZIP Co de Phone Number [facility] [address] [place] [address], [place] [phone] * LIPASE (08/24/2024 3:36 PM CDT) LIPASE 32 13 - 75 UNITS/L 08/24/2024 4:11 PM CDT [facility] 08/24/2024 3:36 PM CDT Ismael Brennan MD LABORATORY Final Result [facility] [address] [place] [address], * XR CHEST PORTABLE (08/24/2024 2:40 PM CDT) Anatomical Region Laterality Modality Chest Radiographic Marie ging 08/24/2024 2:42 PM CDT Impressions 08/24/2024 2:44 PM CDT =====IMPRESSION:===== Mild cardiomegaly, central pulmonary vascular congestion, and interstitial edema. Ordered By: ROSARIO MOCK Interpreted By: Davin Corral MD, 08/24/2024 2:42 PM Narrative 08/24/2024 2:[address] [address] Examination: Chest x-ray 1 view Exam date/time: [...] Note Davin Corral MD - 08/24/[address] [address] [address] Examination: Chest x-ray 1 view Exam date/time: [...] 5:56 PM Narrative 08/20/2024 5:56 PM CDT [address] [address] 2 VIEWS OF THE CHEST Clinical history: End-stage renal disease Comparison: May 28, 2024 2 views of the chest demonstrate the cardiac silhouette to be normal in size and appears stable. The pulmonary vessels appear normal. The Lungs are clear. No consolidations or effusions are seen. Procedure Note Minor Jo MD - 08/20/2024 [facility] [address] [place], [place] [address] 2 VIEWS OF THE CHEST Clinical history: [...] - 80.1 PG/ML 08/20/2024 4:19 PM CDT [facility] 08/20/2024 3:42 PM CDT us Tirso Cooper MD LABORATORY Final Result [facility] [address] [place] [address], [place] [phone] * HEPATITIS B SURFACE AG, EIA (08/20/2024 3:42 PM CDT) HEPATITIS B SURFACE AG NON-REACTI VE NON-REACTI VE 08/20/2024 4:30 PM CDT [facility] 08/20/2024 3:42 PM CDT us Tirso Cooper MD LABORATORY Final Result Performing Organization Address City/[facility] [address]/ZIP Co de Phone Number [facility] [address] [place] [address], [place] [phone] * HEPATITIS B SURFACE ANTIBODY (08/20/2024 3:42 PM CDT) HEP B SURFACE AB NON-REACTI VE 08/20/2024 5:24 PM CDT [facility] 08/20/2024 3:42 PM CDT Tirso Cooper MD LABORATORY Final Result Performing Organization Address [facility] [address]/[facility] Co de Phone Number [facility] [address] [place] [address], [place] [phone] * HEPATITIS B CORE ANTIBODY (08/20/2024 3:42 PM CDT) HEP B CORE TOTAL AB NON-REACTI VE NON-REACTI VE 08/20/2024 4:59 PM CDT [facility] 08/20/2024 3:42 PM CDT us Tirso Cooper MD LABORATORY Final Result Performing Organization Address City/[facility] [address]/ZIP Co de Phone Number [facility] [address] [place] [address], [place] [phone] * (ABNORMAL) CBC, AUTO, NO DIFF (08/20/2024 3:42 PM CDT) Only the most recent of2 resultswithin the time period is included. WBC 7.79 4.5 - 11.0 x10'3/uL 08/20/2024 3:52 PM CDT [facility] RBC 2.59(L) 4.70 - 6.10 x10'6/uL 08/20/2024 3:52 PM CDT [facility] HGB 7.7(L) 14.0 - 18.0 G/DL 08/20/2024 3:52 PM CDT [facility] HCT 23.8(L) 43.0 - 54.0 % 08/20/2024 3:52 PM CDT [facility] MCV 91.9 80.0 - 94.0 FL 08/20/2024 3:52 PM CDT [facility] MCH 29.7 27.0 - 31.0 PG 08/20/2024 3:52 PM CDT [facility] MCHC 32.4 32.0 - 36.0 G/DL 08/20/2024 3:52 PM CDT [facility] RDW 16.1(H) 11.5 - 14.5 % 08/20/2024 3:52 PM CDT [facility] PLT 262 130 - 400 x10'3/uL 08/20/2024 3:52 PM CDT [facility] MPV 9.5 9.3 - 12.2 FL 08/20/2024 3:52 PM CDT [facility] 08/20/2024 3:42 PM CDT us Tirso Cooper MD LABORATORY Final Result [facility] [address] [place] [address], * VITAMIN D, 25 OH (07/26/2024 12:13 PM DOLL EYE SETTER) VITAMIN D 25 HYDROXY S/P/B 36 30 - 100 NG/ML 07/26/2024 2:07 PM DOLL EYE SETTER [facility] Comment: INTERPRETATION DEFICIENT <20 INSUFFICIENT 20-29 SUFFICIENT 30-100 07/26/2024 12:1 3 PM DOLL EYE SETTER Tirso Cooper MD LABORATORY Final Result Performing Organization Address City/[facility] [address]/ZIP Co de Phone Number [facility] [address] [place] [address], [place] [phone] * URIC ACID BLOOD (07/26/2024 12:13 PM DOLL EYE SETTER) URIC ACID 4.6 3.5 - 7.2 MG/DL 07/26/2024 2:16 PM DOLL EYE SETTER [facility] 07/26/2024 12:1 3 PM DOLL EYE SETTER Tirso Cooper MD LABORATORY Final Result Performing Organization Address [facility] [address]/[facility] Co de Phone Number [facility] [address] [place] [address], [place] [phone] * (ABNORMAL) LIPID PANEL (10/12/2022 7:06 AM CDT) CHOLESTEROL 110 <200 MG/DL 10/12/2022 8:01 AM CDT [facility] TRIGLYCERIDES 134 <150 MG/DL 10/12/2022 8:01 AM CDT [facility] HDL 35(L) >40.0 MG/DL 10/12/2022 8:01 AM CDT [facility] LDL (CALCULATED) 48 <100 MG/DL 10/13/19 8:01 AM CDT [facility] NON HDL CHOLESTEROL 75 <130 MG/DL 10/12 8:01 AM CDT [facility] CHOL/HDL RATIO 3.1 0.0 - 4.5 10/12/2022 8:01 AM CDT [facility] VLDL CALCULATION 27 5 - 55 MG/DL 10/12/2022 8:01 AM CDT [facility] LIPID INTERPRETATION 10/12/2022 8:01 AM CDT [facility] Comment: NIH CONCENSUS REPORT RECOMMENDATIONS: ADULT CHILD LOW RISK: CHOLESTEROL <200 <170 TRIGLYCERIDE <150 --- HDL >=60 --- LDL <100 <110 BORDERLINE: CHOLESTEROL 200-239 170-199 TRIGLYCERIDE 150-199 --- HDL 40-59 --- LDL 100-159 110-129 HIGH RISK: CHOLESTEROL >=240 >=200 TRIGLYCERIDE >=200 --- HDL <40 --- LDL >=160 >=130 10/12/2022 7:06 AM CDT us Josseline Tabares MD LABORATORY Final Result [facility] [address] [place] [address], [place] [phone] * HEPATITIS PANEL,ACUTE (05/30/2021 1:20 PM DOLL EYE SETTER) HEPATITIS B SURFACE AG NON-REACTI VE NON-REACTI VE 05/30/2021 3:16 PM DOLL EYE SETTER [facility] HEP B CORE IGM NON-REACTI VE NON-REACTI VE 05/30/2021 3:16 PM DOLL EYE SETTER [facility] HAV IGM NON-REACTI VE NON-REACTI VE 05/30/2021 3:16 PM DOLL EYE SETTER [facility] HEPATITIS C AB NON-REACTI VE NON-REACTI VE 05/30/2021 3:16 PM DOLL EYE SETTER [facility] 05/30/2021 1:20 PM DOLL EYE SETTER us Tirso Cooper MD LABORATORY Final Result [facility] [address] [place] [address], from Last 3 Months or Most Recently [...] 11:22 PM 06/03/2021 3:03 PM Care Teams Office Communication Professor Relationship Specialty Start Date End Date Chandler Geronimo DO [address] [place] [phone] PCP - General FAMILY PRACTICE 05/29/21
--- OUTSIDE RECORDS SUMMARY | 2024-10-16 16:13 | XMS_ITS | Encounter Summary ---
Author Organization [facility] - [facility] Address [address] [place] [address] Care Team Providers Care Artificial Insemination Technician Name Role Phone Chandler Geronimo DO Primary Care Provide r Encounter Details Date Type Department Care Team (Late st Contact Info) Description 09/01/2024 MyChart Message Enc [facility] Medical Group Multispecialty Care - [facility], [facility] [address] [place] [address] David Hamilton MD 3 [facility], [facility] [address] [place] [address] question Social History Tobacco Use Types Packs/Day Years Used Date Smoking Tobacco: Never Smokeless Tobacco: Never Alcohol Use Standard Drinks/Week Comments Never 0 (1 standard drink = 0.6 oz pur e alcohol) [facility] Utilities Answer Date Recorded In the [...] declined 10/10/2022 How often do you attend caodaism or holiness serv ices? Patient declined 10/10/2022 Do you belong to any clubs o r organizations such as caodaism groups, unions, fraternal or athletic groups, or [...] Health Questionnaire-2 Score 0 07/26/2024 [facility] of Occupat ional Health - Occupational Stress [...] any time in the past 12 m [facility], were you homeless or living in a halfway (including now)? 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
--- OUTSIDE RECORDS SUMMARY | 2024-10-16 16:13 | XMS_ITS | Encounter Summary ---
Author Organization [facility] Address [address] [place] [address] Care Team Providers Care Electronic Device Repairer Name Role Phone Chandler Geronimo DO Primary Care Provide r Encounter Details Date Type Department Care Team (Late st Contact Info) Description 10/21/2022 Therapy Plan [facility] Infusion Services [address] [place] [phone] David Hamilton MD 3 [facility], [place] [phone] Social History Tobacco Use Types Packs/Day Years [...] declined 10/10/2022 How often do you attend roman catholic or sabianist serv ices? Patient declined 10/10/2022 Do you belong to any clubs o r organizations such as roman catholic groups, unions, fraternal or athletic groups, or [...] Recorded Patient Health Questionnaire-2 Score 0 10/21/2022 [facility] of Occupat ional Health - Occupational [...] in a retirement (including now)? No 10/10/2022 Sex and Gender Information Value Date Recorded Sex Assigned at Male 07/22/2024 2:00 PM SEISMIC SURVEY ASSISTANT Legal Sex Male 2:48 PM SEISMIC SURVEY ASSISTANT Gender Identity Not on file Sexual [...] independent in ADLs upon discharge from hospital [facility] Aline Russell RN Health - patient able to perform ADLs independently Lifestyle No El Vaughn RN documented as of this encounter Visit Diagnoses Diagnosis Iron deficiency anemia- Primary Iron deficiency anemia, unspecified documented in this encounter Additional Health Concerns Assessment Noted Time PHQ-9 Depression Total Score: 0 03/14/20 3:10 PM CDT documented as of this encounter Care Teams Electronic Device Repairer Relationship Specialty Start Date End Date Chandler Geronimo DO [address] [place] [phone] PCP - General FAMILY PRACTICE 05/29/21 documented as of this encounter
--- OUTSIDE RECORDS SUMMARY | 2024-10-16 16:14 | XMS_ITS | Encounter Summary ---
Author Organization [facility] - [facility] Address [address] [place] [address] Care Team Providers Care Merchandise Handler Name Role Phone Chandler Geronimo DO Primary Care Provide r Reason for Referral * Surgical (Routine) - New Request Specialty Diagnoses / Procedures Referred By Hazel t Referred To Contact Diagnoses ESRD (end stage renal disease) on dialysis ([facility]) Procedures Case request operating room: BRACHIAL CEPHALIC ARTERIOVENOUS FISTULA OR TRANSPOSITION BASILIC VEIN (LEFT ARM) Layton Herrera MD [facility]. [facility] [[email or web address] [address] [place] [address] Phone: tel: fax: Referral ID Status Reason Start Date Expiration Date V isits Requested Visits Authorized [id number] New Request 06/01/2024 06/01/2025 1 1 CE RADIO DISPATCHER Encounter Details Date Type Department Care Team (Late st Contact Info) Description 06/01/2024 Prep for Procedure [facility] [address] [place] [address] Layton Herrera MD [facility]. [facility] [[email or web address]] [address] [place] [address] Social History Tobacco Use Types Packs/Day Years Used Date Smoking Tobacco: Never Smokeless Tobacco: Never Alcohol Use Standard Drinks/Week Comments Never 0 (1 standard drink = 0.6 oz pur e alcohol) [facility] Utilities Answer Date Recorded In the [...] How often do you attend uatsdin or confucianist serv ices? Patient declined 10/10/2022 Do you [...] Recorded Patient Health Questionnaire-2 Score 0 01/05/2024 [facility] - Occupational Stress Questionnaire Answer Date [...] place to sleep or slept in a alf (including now)? No 10/10/2022 Housing Stability Vital [...] in the past 12 m [facility], were you homeless or living in a alf (including now)? 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 Author Patient will return to prior living situation and remain independent in ADLs upon discharge from hospital General Aline Russell, RN Health - patient able to perform ADLs independently Lifestyle No El Vaughn, manager division - family caregiver with be involved in care transitions and discharge planning Lifestyle No Abby Eng RN documented as of this encounter Visit Diagnoses Diagnosis ESRD (end stage renal disease) on dialysis ([facility])- Primary End stage renal disease documented in this encounter Additional Health Concerns Assessment Noted Time PHQ-9 Depression Total Score: 0 03/14/20 22 3:10 PM CDT documented as of this encounter Care Teams Merchandise Handler Relationship Specialty Start Date End Date Chandler Geronimo DO [address] [place] [phone] PCP - General FAMILY PRACTICE 05/29/21 documented as of this encounter
--- OUTSIDE RECORDS SUMMARY | 2024-10-16 16:14 | XMS_ITS | Continuity of Care Document ---
Author Organization [facility] [employer] [place] Address [address] [place] [address] Phone Care Team Providers Care Lean Manager Name Role Phone Faustinostone Chandler ALEX Unavailable [...] vac INFLUENZA VACCINE, 0.5mL DOSAGE; FLUZONE OFFICE [id number] BODY MASS INDEX DOCD SYST BP LT 130 MM HG DIAST BP < 80 MM HG BASIC METABOLIC PANEL(BMP) HEMOGLOBIN A1C HGA1C, GLYCO LIPID PANEL MICROALBUMIN, QN (URINE) CREATININE, (U-R) PSA, TOTAL URINALYSIS W MICROSCOPIC (UA) ROUTINE VENIPUNCTURE IL OFFICE [id number] Visit Complexity Inherent To E/M 2023 BODY MASS INDEX DOCD SYST BP LT 130 MM HG DIAST BP < 80 MM HG FALL RISK ASSESSMENT DOC'D PRES/ABSN URINE INCON ASSESS Pt inelig neg scrn depres Admin influenza virus vac FLU VACC 4 BINH 0.5mL DOSAGE OFFICE [id number] BODY MASS INDEX DOCD SYST BP LT 130 MM HG DIAST BP < 80 MM HG No Show Appt Charge DSCHRG MED/CURRENT MED MERGE OFFICE [id number] BODY MASS INDEX DOCD SYST BP LT 130 MM HG DIAST BP < 80 MM HG Transitional Care- First 7 Days Of Disch arge CBC, INC PLATELETS AND DIFFERENTIAL COMPREHEN METABOLIC PANEL CMP HEMOGLOBIN A1C HGA1C, GLYCO LIPID PANEL MICROALBUMIN, QN (URINE) CREATININE, (U-R) PSA, TOTAL, SCREENING MEDICARE ONLY PARATHYROID HORMONE (PTH) VITAMIN D, 25-HYDROXY ROUTINE VENIPUNCTURE IL OFFICE [id number] BODY MASS INDEX DOCD SYST BP GE 130 - 139MM HG DIAST BP < 80 MM HG OFFICE [id number]-[id number]-[id number] BODY MASS INDEX DOCD SYST BP GE 130 - 139MM HG DIAST BP < 80 MM HG Pt inelig neg scrn depres FALL RISK ASSESSMENT DOC'D PRES/ABSN URINE INCON ASSESS OFFICE [id number] BODY MASS INDEX DOCD SYST BP LT 130 MM HG DIAST BP < 80 MM HG HEMOGLOBIN A1C HGA1C, GLYCO URINALYSIS, REFLEX (UA) ROUTINE VENIPUNCTURE OFFICE [id number]-[id number] BODY MASS INDEX DOCD SYST BP LT [...] DIAST BP < 80 MM HG OFFICE [id number] COMPREHEN METABOLIC PANEL CMP 1 HEMOGLOBIN A1C HGA1C, GLYCO LIPID PANEL ROUTINE VENIPUNCTURE Admin influenza virus vac FLU VACC 4 BINH 0.5mL DOSAGE OFFICE [id number] BODY MASS INDEX DOCD SYST BP GE 130 - 139MM HG DIAST BP < 80 MM HG FALL RISK ASSESSMENT DOC'D PRES/ABSN URINE INCON ASSESS Pt inelig neg scrn depres CBC, INC PLATELETS AND DIFFERENTIAL COMPREHEN METABOLIC PANEL CMP LIPID PANEL PSA, TOTAL, SCREENING MEDICARE ONLY ROUTINE VENIPUNCTURE OFFICE [id number] BODY MASS INDEX DOCD SYST BP GE 130 - 139MM HG DIAST BP < 80 MM HG HEMOGLOBIN A1C HGA1C, GLYCO CBC, INC PLATELETS AND DIFFERENTIAL COMPREHEN METABOLIC PANEL CMP 9 HEMOGLOBIN A1C HGA1C, GLYCO LIPID PANEL ROUTINE VENIPUNCTURE OFFICE [id number] BODY MASS INDEX DOCD SYST BP LT [...] Transitional Care- First 7 Days Of Discharge [facility], [address], [place], [place], [address] , [place] tel:[phone] Critical access hospital Follow-Up (chief complaint)Chr onic Conditions (chief complaint) Body mass index [BMI] 24.0-24.9, adultHyperte nsive chronic kidney disease with stage 5 chronic kidney disease or end stage renal diseaseChron ic kidney disease, stage 5Dependence on renal dialysisHist ory of pneumoniaHer pes zoster with other complication Paroxysmal atrial fibrillation 5 Faustino Arteaga. [address], [place], [id number], [place]. tel:[phone] Referring Provider: Chandler castro, [address] [place] [address], [address] . tel:[phone] [facility], [address], [place], [place], [address] , [place] tel: [phone] [facility] No Information 5 Faustino Arteaga. [address] [place] [address], [id number], . tel:[phone] [facility], [address], [place], [place], [address] , [place] tel: [phone] [facility] No Information 5 Faustino Arteaga. [address] [place] [address], [id number], [place]. tel:[phone] Referring Provider: Chandler castro, [address] [place] [address], [address] . tel:[phone] [facility], [address], [place], [place], [address] , [place] tel: [phone] [facility] No Information 5 Faustino Arteaga. [address] [place] [address], [id number], [place]. tel:[phone] [facility], [address], [place], [place], [address] , tel: [phone] [facility] No Information 5 Faustino Arteaga. [address] [place] [address], [id number], [place]. tel:[phone] Transitional Care- First 7 Days Of Discharge [facility], [address], [place], [place], [address] , [place] tel: [phone] [facility] Hospital Follow-Up (chief complaint)Oth er (chief complaint)Chr onic Conditions (chief complaint) Chronic kidney disease, stage 5HTN w/ chronic kidney disease stage 5Renal osteodystrop hyAnemia in other chronic diseases classified elsewhereTyp e 2 diabetes mellitus with other diabetic kidney complication Mixed hyperlipidem iaAtheroscle rosis of aortaBody mass index [BMI] 24.0-24.9, adultChronic diastolic (congestive) heart failure 5 Faustino Arteaga. [address] [place] [address], [id number], [place]. tel:[phone] Referring Provider: Chandler castro, [address] [place] [address], [address] . tel:[phone] OFFICE LVMCE-RQZ-AHJ MAXINE [facility], [address], [place], [place], [address] , [place] tel: [phone] [facility] 6 month F/U (chief complaint)Chr onic [...] complication Encounter for immunization 4 Faustino Arteaga. [address] [place] [address], [id number], [place]. tel:[phone] Referring Provider: Chandler castro, [address] [place] [address], [address] . tel:[phone] [facility], [address], [place], [place], [address] , [place] tel: [phone] [facility] No Information 4 Faustino Arteaga. [address] [place] [address], [id number], [place]. tel:[phone] [facility], [address], [place], [place], [address] , [place] tel: [phone] [facility] No Information 4 Fozia Wiley. [address] [address], [place], [place], [address], [place]. tel:[phone] Referring Provider: Chandler castro, [address] [place] [address], [address] . tel:[phone] OFFICE QOVSK-BED-IBE [facility], [address], [place], [place], [address] , [place] tel: [phone] [facility] 6 month F/U (chief complaint)Chr onic [...] malignant neoplasm of colon 4 Faustino Arteaga. [address] [place] [address], [id number], [place]. tel:[phone] Referring Provider: Chandler castro, [address] [place] [address], [address] . tel:[phone] OFFICE IMDRZ-WOF-CVA [facility], [address], [place], [place], [address] , [place] tel: [phone] [facility] 6 mo f/u (chief complaint)Chr onic [...] drugsEncount er for immunization 3 Faustino Arteaga. [address] [place] [address], [id number], [place]. tel:[phone] Referring Provider: Chandler castro, [address] [place] [address], [address] . tel:[phone] [facility], [address], [place], [place], [address] , [phone] [facility] No Information 3 Faustino ritter Chandler. [address] [place] [address], [id number], [place]. tel:[phone] Referring Provider: Chandler castro, [address] [place] [address], [address] . tel:[phone] [facility], [address], [place], [place], [address] , tel:[phone] [facility] Hyperkalemia 3 Nelly Dejesus. [address] [place] [address], [address], [place]. tel:[phone] OFFICE NEPSY-WDV-AVS P [facility], [address], [place], [place], [address] , tel:[phone] [facility] [place] [facility] Follow-Up (chief complaint)Chr onic Conditions (chief [...] mitral valve regurgitatio n 3 Nelly Dejesus. [address] [place] [address], [address], . tel:[phone] Referring Provider: Chandler castro, [address] [place] [address], [address] . tel:[phone] [facility], [address], [place], [place], [address] , [place] tel: [phone] [facility] No Information 3 Fozia Mckeonn. [address] [address], [place], [place], [address], [place]. tel:[phone] Referring Provider: Chandler castro, [address] [place] [address], [address] . tel:[phone] OFFICE PDHTC-LJD-EKH [facility], [address], [place], [place], [address] , [place] tel: [phone] [facility] Patient encounter (chief complaint)oth er (chief complaint)Chr onic Conditions (chief complaint) ANCA associated vasculitisCh ronic kidney disease, stage 4 (severe)Ilene l osteodystrop hyAnemia in other chronic diseases classified elsewhereTyp e 2 diabetes mellitus with other diabetic kidney complication Mixed hyperlipidem iaAtheroscle rosis of [facility] er for screening for malignant neoplasm of prostateBody mass index [BMI] 28.0-28.9, adultHyperte nsive chronic kidney disease with stage 1 through stage 4 chronic kidney disease, or unspecified chronic kidney disease 3 Faustino Aretaga. [address] [place] [address], [id number], [place]. [phone] Referring Provider: Chandler castro, [address] [place] [address], [address] . tel:[phone] OFFICE SNBYA-FDV-WYL [facility], [address], [place], [place], [address] , [place] tel: [phone] [facility] Patient encounter (chief complaint)oth er (chief complaint)Chr onic Conditions (chief complaint) Body mass index [BMI] 28.0-28.9, adultChronic kidney disease, stage 4 (severe)Ilene l osteodystrop hyType 2 diabetes mellitus with other diabetic kidney complication Encounter for screening for malignant neoplasm of prostate 2 Faustino Arteaga. [address] [place] [address], [id number], [place]. tel:[phone] Referring Provider: Chandler castro, [address] [place] [address], [address] . tel:[phone] OFFICE WDVHW-AUO-GLH [facility], [address], [place], [place], [address] , [place] tel: [phone] [facility] other (chief complaint)Chr onic Conditions (chief complaint) Body mass index [BMI] 27.0-27.9, adultNephrit ic syndrome w/ diffuse crescentic glomerulonep hritisChroni c kidney disease, stage 5Long term (current) use of insulinType 2 diabetes mellitus w/ diabetic kidney complication Immunosuppre ssionMixed hyperlipidem ia 2 Faustino Arteaga. [address] [place] [address], [id number], [place]. tel:[phone] Referring Provider: Chandler castro, [address] [place] [address], [address] . tel:[phone] [facility], [address], [place], [place], [address] , [place] tel:[phone] [facility] No Information 2 Faustino Arteaga. [address] [place] [address], [id number], [place]. tel:[phone] OFFICE HVGSE-BAN-XMB [facility], [address], [place], [place], [address] , [place] tel:[phone] [facility] Crescentic glomeruloneph ritis (chief complaint)His tory of COVID-19 (chief complaint)Hyp ertensive renal disease (chief complaint)Oth er (chief complaint)Chr onic Conditions (chief complaint) Body mass index [BMI] 27.0-27.9, adultType 2 diabetes mellitus w/ diabetic kidney complication [facility] (current) use of insulinChron ic kidney disease, stage 5Weight lossHistory of hematuriaRen al osteodystrop hyNephritic syndrome w/ diffuse crescentic glomerulonep hritisAthero sclerosis of aorta 2 Faustino Arteaga. [address] [place] [address], [place], [place], [id number], [place]. tel:[phone] Referring Provider: Chandler castro, [address] [place] [address], [place], [address] . tel:[phone] Transitional Care- First 7 Days Of Discharge [facility], [address], [place], [place], [address] , tel: [phone] [facility] Hospital Follow-Up (chief complaint)oth er (chief complaint)Chr onic Conditions (chief complaint) Body mass index [BMI] 30.0-30.9, adultAKI (acute kidney injury)Hyper tensive renal diseaseType 2 diabetes mellitus w/ diabetic kidney complication Crescentic glomerulonep hritisImmuno suppressionH istory of COVID-19Chro emmett obstructive pulmonary disease, unspecified COPD type 2 Faustino Arteaga. [address] [place] [address], [id number], [place]. tel:[phone] Referring Provider: Chandler castro, [address] [place] [address], [place], [address] . tel:[phone] [facility], [address], [place], [place], [address] , [place] tel: [phone] [facility] Exposure to COVID-19 virus 2 Faustino Arteaga. [address] [place] [address], [id number], [place]. tel:[phone] Referring Provider: Chandler castro, [address] [place] [address], [place], [address] . tel:[phone] Transitional Care- First 7 Days Of Discharge [facility], [address], [place], [place], [address] , tel: [phone] [facility] Follow-Up (chief complaint)Chr onic Conditions (chief complaint) Type 2 diabetes mellitus w/ diabetic kidney complication LEANDRO (acute kidney injury)Hyper tensive renal diseaseBody mass index [BMI] 28.0-28.9, adultAtheros clerosis of aortaAtheros clerotic heart disease of [place] coronary artery without angina pectorisMass of lingula of lungHemoptys isHematuria, unspecified type 2 Faustino Arteaga. [address] [place] [address], [id number], [place]. tel:[phone] Referring Provider: Chandler castro, [address] [place] [address], [place], [address] . tel:[phone] OFFICE CJCLZ-QXS-HUR [facility], [address], [place], [place], [address] , tel: [phone] [facility] Follow-Up (chief complaint)Tel ehealth (chief complaint)Chr onic Conditions (chief complaint) Mixed hyperlipidem iaType 2 diabetes mellitus w/ diabetic kidney complication Gastroesopha geal reflux disease without esophagitisA KI (acute kidney injury) 1 Faustino Arteaga. [address] [place] [address], [place], [address], [place]. [phone] Referring Provider: Chandler castro, [address] [place] [address], [place], [address] . tel:[phone] OFFICE YDSQB-ZFY-LZQ [facility], [address], [place], [place], [address] , tel: [phone] [facility] acute visit (chief complaint)Chr onic Conditions (chief complaint) Body mass index [BMI] 32.0-32.9, adultPrediab etesAtherosc lerosis of aortaBalanit isEncounter for immunization 1 Faustino Durantrick. [address] [place] [address], [place], [place], [address], [place]. tel:[phone] Referring Provider: Chandler castro, [address] [place] [address], [place], [address] . 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 [address] [place] [address], [place], [place], [address], [place]. tel:[phone] Referring Provider: Chandler castro, [address] [place] [address], [place], [address] . tel:[phone] [facility], [address], [place], [place], [address] , [place] tel: [phone] [facility] No Information 1 Faustino Arteaga. [address] [place] [address], [place], [id number], [place]. [phone] [facility], [address], [place], [place], [address] , [place] tel: [phone] [facility] Prediabetes 0 Yolis Soria. [address], [place], [place], [address], [place]. [phone] OFFICE DPGCB-WAM-XVL ANDED [facility], [address], [place], [place], [address] , [place] tel: [phone] [facility] Chronic Conditions (chief complaint)12 month follow up (chief complaint) Atherosclero sis of aortaChronic obstructive pulmonary disease, unspecifiedA bnormal finding on diagnostic imaging of liver Yolis Soria. [address], [place], [place], [address], [place]. tel:[phone] Referring Provider: Yang Lagos, [address], [place], [address] . tel:[phone] [facility], [address], [place], [place], [address] , [place] tel: [phone] [facility] Liver mass Yolis Soria. [address], [place], [place], [address], [place]. tel:[phone] [facility], [address], [place], [place], [address] , [place] tel: [phone] [facility] Epigastric pain Yolis Soria. [address], [place], [place], [address], [place]. tel:[phone] Referring Provider: Yang Lagos, [address], [place], [address] . tel:[phone] [facility], [address], [place], [place], [address] , [place] tel: [phone] [facility] Atherosclero sis of aortaChronic obstructive pulmonary disease, unspecifiedP rediabetesBe nign neoplasm of colon, unspecified 8 Yolis Soria. [address], [place], [place], [address], [place]. tel:[phone] Referring Provider: Yang Lagos, [address], [place], [address] . tel:[phone] [facility], [address], [place], [place], [address] , [place] tel: [phone] [facility] Ingrown toenail 7 Yolis Soria. [address], [place], [place], [address], . tel:[phone] [facility] [address], [place], [place], [address] , tel: [phone] [facility] IM Ingrown toenail 7 Yolis Soria. [address], [place], [place], [address], [place]. tel:[phone] Referring Provider: Yang Lagos, [address], [place], [address] . tel:[phone] [facility] [address], [place], [place], [address] , tel: [phone] [facility] Chronic obstructive pulmonary disease, unspecified COPD typeTubular adenoma Mar- 7 Yolis Soria. [address], [place], [address], [place]. tel:[phone] Referring Provider: Yang Lagos, [address], [place], [address] . tel:[phone] [facility] [address], [place], [place], [address] , tel: [phone] [facility] Abnormal levels of other serum enzymes 6 Yolis Soria. [address], [place], [place], [address], [place]. tel:[phone] Referring Provider: Yang Lagos, [address], [place], [address] . tel:[phone] [facility] [address], [place], [place], [address] , tel:[phone] [facility] Tubular adenomaChron ic obstructive pulmonary disease, unspecified COPD type Sep-2 6 Yolis Soria. [address], [place], [place], [address], . tel:[phone] Referring Provider: Yang Lagos, [address], [place], [address] . tel:[phone] [facility], [address], [place], [place], [address] , tel: [phone] [facility] Tubular adenoma 6 Yolis Soria. [address], [place], [place], [address], . tel:[phone] [facility], [address], [place], [place], [address] , tel: [phone] [facility] Shortness of breathNon morbid obesity, unspecified obesity typeMidline low back pain without sciaticaChro emmett obstructive pulmonary disease, unspecified COPD typePrediabe tesPrediabet es 6 Yolis Soria. [address], [place], [place], [address], . tel:[phone] Referring Provider: Yang Lagos, [address], [place], [address] . tel:[phone] Family History Family Member Type Diagnosis Age [...] administered 21 days apart administered Source: Other [facility] Fluzone Quad, split virus, 0.5mL dosage administered Source: New Immuniza tion Record Pf[employer] COVID19 Vaccine, 0.3mL per dose, 2 doses, administered 21 days apart administered Note: Az erickson ; Source: Other Provider [employer] COVID19 Vaccine, 0.3mL per dose, 2 doses, administered 21 days apart administered Note: Az erickson ; Source: Other Provider Pneumococcal conjugate PCV 13 administere d Source: New Immunization Record Tdap administered Source: New Imm unization Record Payers Payer name Insurance type Covered republican ID Authoriza tiamna(s) MARANDATNA MDCR [employer] [id number] [employer] [place] [id number] [employer] MB [id number] [employer] MB [id number] [employer] MB [id number] [employer] MB [id number] [employer] MB [id number] Social History Type Description Quantity Date Captured Comments Alcohol Use Details No Caffeine Use Details tea 1 cup per day Tobacco Use Status Ex-cigarette smoker 025 Smoking Status Former smoker Smoking Tobacco Use Details Cigarette: Age Started: 14, Age Stopped: 62 Cigarette: No Details Available Sex Male Sexual Orientation Straight or heterosexual Vital Signs Date / Time: Height Weight [...] with daughter Jeison for follow-up.Patient went to [place] emergency room after having chest pain on [...] Past appt:Dialysis and labs drawn, sent to [place] - Today Future appt:Cardiology - 09/30/24 Chronic [...] [address] [place], [id number] Ordered: Referrals: Gastroenterology. Peggy Beaver. Evaluation/diagnostic/treatment - Level 3 Appointment date/timeframe: 01/08/2023 ordered Referral Referred To: Dr. Ernst Good Ordered: Referrals: Cardiology. Dr. Ernst Good. Evaluation/diagnostic/treatment - Level 3 ordered Referral Referred To: Dr. Trujillo Ordered: Referrals: Urology. Dr. Trujillo. Evaluation/diagnostic/treatment - Level 3 Appointment date/timeframe: 10/08/2021 ordered Referral Referred To: David Hamilton [address], [place], [phone] Ordered: Referrals: Nephrology. David Hamilton. Evaluation/diagnostic/treatment - Level 3 ordered Referral Referred To: [address] [place], [id number] Ordered: CT chest without contrast ordered Referral Referred To: Watson Corral OD [address], [place], [phone] Ordered: Referrals: Hospice Home Health Aide. Watson Corral OD. Evaluation/diagnostic/treatment - Level 3 ordered Appointment [facility] Patient Education Dorystis: Care Instruc tions completed Patient Education Learning About COPD com pleted History Of Present Illness Encounter Date Complaint History Of Prese nt Illness Hospital Follow-Up The patient w as seen today for a hospital follow-up visit, after being discharged on 09/11/2024. Details regarding this most recent admission include: Patient seen for hospital follow-up.Patient comes in with daughter Jeison for follow-up.Patient went to [place] emergency room after having chest pain on [...] Daughter will be scheduling appt with hematology. Eileenbean on hold until seen by hematology.-Headache x5 daysThrobbing sensation of left eye Denies N/VHearing and vision has diminished since starting dialysis Treated with Tylenol with no relief. Last took Tylenol at dialysis today. Past appt:Dialysis and labs drawn, sent to [facility] - Today Future appt:Cardiology - 09/30/24 Chronic [...] daughter for hospital follow-up.Patient was seen at [facility] from 05/27 to 06/05.Patient went to the [...] by his son, Harshil. He primarily speaks Yoruba. He presented to [facility] on October 10 under the advisement of his correctional lieutenant. He has a history of hypertension, diabetes, ANCA vasculitis, anemia, stage V CKD and hyperlipidemia.He had been reporting increased weakness and fatigue for the past 2 weeks prior to admission and chest pain and increased work of breathing while cutting grass before admission.He had been getting erythropoietin outpatient through correctional lieutenant Dr. Hamilton. Upon admission his hemoglobin was [...] Deltasone 5mgDc Home on 10.12.2022.Recommend appointment with correctional lieutenant Dr. Hamilton in 1 week- no appt yet.Chromium Plater Dr. Good in 1 monthSt[facility] infusion [...] Crescentic glomerulonephritis La st OV with Rn Radiology, Dr. Hamilton 07/16/21Labs drawn last week ordered [...] with COVIDhe did receive mAb infusion at [facility] having weakness and occasional shortness of breath [...] how much. other Infusion schedul ed at [facility], has a port.Does not have [...] recommendation for worsening renal functionpt was in [facility] 05/11-05/14 for abdominal pain and LEANDRO, on d/c Cr was at 3.2he had repeat labs on 05/24 with Cr up to 4.78, these were ordered and performed at [facility] and I was unable to obtain them until 05/29, pt and family were unsure who ordered and had not been contacted about them before. pt was having worsening abd pain and I recommended ED, family took him to [facility] he went to the ED on [...] acted as translators as patient is primarily nepalese speakingPt has several children, including Harshil, Radha [...] to penis, went to Urgent Care in [place] 03/27/21Prescribed clotrimazole 1% cream to be applied [...] the high dose flu vaccine.pt speaks little Kinyarwanda, son Harshil translating other [employer] 09/13, 10/04 LyndsaysAdvised pt to call pharmacy [...] prn.no swelling or injury COPD Additional infor mation: Occasional shortness of breath.Cough with prolonged speaking.Quit [...] Related to History of pneumonia Follow-up with [facility] and correctional lieutenant Related to Dependence on renal dialysis Your heart rates wel l-controlled we will continue metoprolol and aspirin and amiodarone. Related to Paroxysmal atrial fibrillation At this time I will start you on renally dosed valacyclovir, this is 500 mg taken after dialysis. You can also merchandise pickup/receiving associate a lidocaine topical to help numb the [...] calcitriol and supplements as recommended by your correctional lieutenant.Follow-up with me in 6 months, sooner if [...] and is being watched closely by her correctional lieutenant. Related to Anemia in other chronic diseases [...] index [BMI] 26.0-26.9, adult Follow-up with nephr vanessa and get transfusions as needed Related to [...] would like you to follow-up with a dairy and food laboratory assistant at [facility]. I will help facilitate this. The name is Dr. Ochoa with any questions or concernsCBC and BMP [facility] Related to Nonrheumatic mitral valve regurgitation Your diabetes is wel l controlled. The A1c was 6.6. Related to Type 2 diabetes mellitus with other diabetic kidney complication you received blood i n the hospital and you will continue to get the infusions to help with the blood counts outpatient. 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 Trujillo at [facility] for evaluation Related to Hematuria, unspecified [...] identified. 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 Patient Care Teams Name Effective Dates (start - stop) Status Members No Information
--- OUTSIDE RECORDS SUMMARY | 2024-10-16 16:14 | XMS_ITS | Encounter Summary ---
Author Organization [facility] Address [address] [place] [address] Care Team Providers Care Trolley Operator Name Role Phone Chandler Geronimo DO Primary Care Provide r Encounter Details Date Type Department Care Team (Late st Contact Info) Description 01/10/2022 Therapy Plan [facility] Infusion Services [place] [id number] David Hamilton MD 3 [facility], [address] [id number] Social History Tobacco Use Types Packs/Day Years [...] Sex Assigned at Male 07/22/2024 2:00 PM TREATMENT TECHNICIAN Legal Sex Male 2:48 PM TREATMENT TECHNICIAN Gender Identity Not on file Sexual [...] Assessment Author Status No 06/13/2021 2:44 AM TREATMENT TECHNICIAN Activ e * RETIRED Are you blind or do you have serious difficulty seeing, even when wearing glasses? Answer Date of Assessment Author Status No 06/13/2021 2:44 AM TREATMENT TECHNICIAN Activ e * Do you have [...] documented as of this encounter Care Teams Trolley Operator Relationship Specialty Start Date End Date Chandler Geronimo DO [address] [place] [phone] PCP - General FAMILY PRACTICE 05/29/21 documented as of this encounter
--- OUTSIDE RECORDS SUMMARY | 2024-10-16 16:14 | XMS_ITS | Encounter Summary ---
Author Organization [facility] Address [address] [place] [address] Care Team Providers Care Political Consultant Name Role Phone Chandler Geronimo DO Primary Care Provide r Encounter Details Date Type Department Care Team (Late st Contact Info) Description 07/16/2021 Therapy Plan [facility] Infusion Services [address] [place] [id number] David Hamilton MD 3 [facility], [address] [id number] Social History Tobacco Use Types Packs/Day Years Used Date Smoking Tobacco: Never Smokeless Tobacco: Never Alcohol Use Standard Drinks/Week Comments Never 0 (1 standard drink = 0.6 oz pur e alcohol) Sex and Gender Information Value Date Recorded Sex Assigned at Male 07/22/2024 2:00 PM MANAGER OF MEDICAL Legal Sex Male 2:48 PM MANAGER OF MEDICAL Gender Identity Not on file Sexual Orientation Not on file COVID-19 Exposure Response Date Recorded In the last 10 days, have yo u been in contact with someone who was confirmed or suspected to have Coronavirus/COVID-19? No / Unsure 07/16/2021 3:48 PM MANAGER OF MEDICAL documented as of this encounter Functional Status * RETIRED Are you deaf or do you have serious difficulty hearing Answer Date of Assessment Author Status No 06/13/2021 2:44 AM MANAGER OF MEDICAL Activ e * RETIRED Are you blind or do you have serious difficulty seeing, even when wearing glasses? Answer Date of Assessment Author Status No 06/13/2021 2:44 AM MANAGER OF MEDICAL Activ e * Do you have serious [...] chronic kidney disease, not on chronic dialysis ([facility])- Primary documented in this encounter Care Teams Political Consultant Relationship Specialty Start Date End Date Chandler Geronimo DO [address] [place] [phone] PCP - General FAMILY PRACTICE 05/29/21 documented as of this encounter
--- OUTSIDE RECORDS SUMMARY | 2024-10-16 16:14 | XMS_ITS | Clinical Summary ---
Author Organization [facility] Wong johnston [facility] Address [address] [place] [address] Care Team Providers Care [employer] Systems Installer Name Role Phone Unavailable Primary Care Provider [...] Description 12/16/2024 3:00 PM CDT Office Visit [facility] Oncology and Hematology - [address] [facility] [address] [place] [address] Iron Cunningham MD [address] [facility] [address] [facility] [address] [place] [address] Health Maintenance Due Date Last Done Comments DTAP/TDAP/TD VACCINES (1 - Tdap) 12/31/1966 PNEUMOCOCCAL VACCINE 50+ YEARS (1 of 1 - PCV) 12/31/18 98 ZOSTER VACCINE (1 of 2) 12/31/1997 RSV VACCINE (60+ or ) (1 - 1-dose 75+ series) 12/31/2022 INFLUENZA VACCINE (#1) 2024
--- OUTSIDE RECORDS SUMMARY | 2024-10-16 16:14 | XMS_ITS | Clinical Summary ---
Author Organization [facility] Address [address] [facility] [place] [address] Care Team Providers Care Renewals Specialist Name Role Phone Unavailable Primary Care Provider Unavailabl e Source Comments [facility],non-owned Affiliates and Associated Physician Practices is amultiple site organization consisting of ambulatory clinics and hospital sitesin [place], [place], [place] and [place]. This disclosure is being madepursuant to the Care Everywhere program and may not contain all information available regarding this patient. Last updated 18.[facility] Allergies No known active allergies Medications * [...] on file Legal Sex Male 11:54 AM CONVERTER OPERATOR Gender Identity Not on file Sexual Orientation Not on file Last Filed Vital Signs Vital Sign Reading Time Taken Comments Blood Pressure 113/89 06/17/2011 5:40 PM CONVERTER OPERATOR Pulse 67 06/17/2011 9:53 PM CONVERTER OPERATOR Temperature 36.3 C (97.3 F) 06/17/2011 5:40 PM CONVERTER OPERATOR Respiratory Rate 16 06/17/2011 5:40 PM CONVERTER OPERATOR Oxygen Saturation 95% 06/17/2011 9:53 PM CONVERTER OPERATOR Inhaled Oxygen Concentration - - Weight 91.6 kg (202 lb) 06/17/2011 5:40 PM CONVERTER OPERATOR Height 177.8 cm (5' 10 ) 06/17/2011 5:40 PM CONVERTER OPERATOR Body Mass Index 28.98 06/17/2011 5:40 PM CONVERTER OPERATOR Plan of Treatment Health Maintenance Due Date [...]
[2024-10-16] MEDS: SODIUM CHLORIDE 0.9% IV 250 ML 30 ML IV CONT (16:53)
--- NOTE | 2024-10-16 18:03 | P.HP_ITS ---
H&P: HPI History of Present Illness Date/Time: 10/16/24 18:03 Chief Complaint: Anemia Narrative: 74-year-old male with end-stage renal disease on dialysis, diastolic CHF, hyperlipidemia, hypertension diabetes atrial fibrillation presents the hospital after dialysis with anemia. Patient states that he has no complaints. He is only at the hospital because he was told to come here. He denies dizziness, shortness of breath, nausea vomiting, fever or chills. In the his hemoglobin is 5.2 hematocrit 17.0, last month his hemoglobin was 7.7, chloride of 95, carbon dioxide 36, BUN of 53 and creatinine 2.89, calcium of 7.8. 2 units RBCs was ordered and Nephrology was consulted. Review of Systems Review of Systems: 12 systems were reviewed and are negativ e except for as per HPI. [facility] Past Medical History Medical History (Updated 10/16/24 @ 23:13 by Norma Luis APRN) Diastolic congestive heart failure ANCA-associated vasculitis Hyperlipidemia Hyperuricemia Diabetes Hypertension Atrial fibrillation Anemia Pleural effusion Hypotension Acute on chronic anemia Pericardial effusion History of end stage renal disease Surgical History Surgical History (Updated 09/11/24 @ 17:14 by Diana Ward MD) History of back surgery H/O bilateral cataract extraction Family History Family History (Updated 09/06/24 @ 18:37 by Jackelin Franco RN) Father Myocardial infarct Sibling Myocardial infarct Mother Dementia Social History Social History Smoking status: Former smoker Additional smoking assessment comments: quit many years ago Alcohol intake: never Substance use: never Do You Feel Safe in your Home?: Yes Lack of Transportation: No Lack of Food: Never True Current Housing: I Have Housing Concerned About Future Housing: No Difficulty Paying Gas/Electric Bills: No Difficulty Paying for Meds: No Currently Unemployed: No Education: High School Diploma/GED Difficulty w/ Childcare or Family Care: No Spiritual care concerns: No Meds Home Medications and Allergies Home Medications ?Medication ?Instructions ?Recorded ?Confirmed ?Type allopurinol 100 mg tablet See Rx Instructions .Route .COMPLEX 09/06/24 10/16/24 History amiodarone 400 mg tablet 200 mg PO DAILY 09/06/24 10/16/24 History calcitriol 0.25 mcg capsule 0.25 mcg PO DAILY 09/06/24 10/16/24 History doxazosin 4 mg tablet (Cardura) 4 mg PO QPM 09/06/24 10/16/24 History ferrous sulfate 325 mg (65 mg 325 mg PO DAILY 09/06/24 10/16/24 History iron) tablet (iron) furosemide 40 mg tablet 120 mg PO BID 09/06/24 10/16/24 History metoprolol tartrate 25 mg tablet 25 mg PO DAILY 09/06/24 10/16/24 History pantoprazole 40 mg tablet,delayed 40 mg PO QAM 09/06/24 10/16/24 History release (Protonix) vitamin B complex-vitamin C-folic 1 tablet PO DAILY 09/06/24 10/16/24 History acid 800 mcg chewable tablet (Dialyvite 800) aspirin 81 mg tablet,delayed 81 mg PO QAM #30 tabs 09/11/24 10/16/24 Rx release atorvastatin 40 mg tablet 80 mg (2 x 40 mg) PO EVENING #30 09/11/24 10/16/24 Rx tabs sodium bicarbonate 650 mg tablet 650 mg PO DAILY #30 tabs 10/07/24 10/16/24 Rx Allergies Allergy/AdvReac Type Severity Reaction Status Date / Time No Known Allergies Allergy Unverified 09/06/24 13:40 Vital Signs Vital Signs - 24 hr 10/16/24 13:23 10/16/24 15:30 10/16/24 17:04 Temperature 98.1 F 97.9 F Pulse Rate 66 70 75 Respiratory Rate 14 16 20 Blood Pressure 123/35 L 118/39 L 131/50 L Pulse Oximetry 95 97 100 Oxygen Delivery Room Air Room Air 10/16/24 17:22 Temperature 97.9 F Pulse Rate 72 Respiratory Rate 16 Blood Pressure 132/46 L Pulse Oximetry 100 Oxygen Delivery Exam Narrative: General: well appearing, appears stated age. HEENT: normocephalic, atraumatic. Mucous membranes moist. EOMI, PERRLA, bilateral sclera anicteric, no conjunctival injection. Neck supple without JVD, lymphadenopathy, or bruit. Respiratory: clear to ascultation bilaterally. No rales/rhonic/wheezes. Cardiovascular: Regular rate and rhythm, normal S1-S2 upon ascultation. No murmurs, rubs, or clicks. PMI is nondisplaced, capillary refill less than [address] Left [address] fistula positive bruit and thrill Abdomen: Soft, round, no pulsatile masses, nondistended and nontender. No rebound, no guarding. No CVA tenderness, no hepatosplenomegaly. Bowel sounds present to all four quadrants. No high pitch or tinkling sounds, resonant to percussion. Extremities: No cyanosis, clubbing, or edema present. Pulses are palpable 2/2. Active ROM to all four extremities. Neuro: Alert and orientated x 4. PERRLA. Cranial nerves 2-12 intact without focal deficit. Skin: Warm, dry, and intact, without rash, erythema, or lesion. Psych: pleasant, cooperative, normal speech, normal affect, no hallucinations, no dysarthia H&P: Results Labs Labs: Short CBC 10/16/24 Range/Units 15:35 WBC 7.3 (4.5-10.0) K/mm3 Hgb 5.2 L* (14.0-18.0) g/dL Hct 17.0 L* (42.0-52.0) % Plt Count 255 (150-375) k/mm3 BMP 10/16/24 15:35 Sodium 138 Potassium 3.7 Chloride 95 L Carbon Dioxide 36 H BUN 53 H D Creatinine 2.89 H Glucose 144 H Calcium 7.8 L Assessment and Plan Assessment and plan (1) Acute on chronic anemia: Code(s): D64.9 - Anemia, unspecified Status: Acute Assessment and Plan: Hemoglobin on admission 5.2 2 unit RBCs on 10/16 Q.6 are H&H Transfuse for hemoglobin less than 7 or symptomatic (2) ESRD on dialysis: Code(s): N18.6 - End stage renal disease; Z99.2 - Dependence on renal dialysis Status: Acute Assessment and Plan: Nephrology consulted Dialysis Friday Continue home medications (3) Diabetes: Code(s): E11.9 - Type 2 diabetes mellitus without complications Status: Chronic Assessment and Plan: Not On medication home Managed by diet (4) Gout: Code(s): M10.9 - Gout, unspecified Status: Acute Assessment and Plan: Continue home medication (5) Hyperlipidemia: Code(s): E78.5 - Hyperlipidemia, unspecified Status: Acute Assessment and Plan: Continue home medication (6) Atrial fibrillation: Code(s): I48.91 - Unspecified atrial fibrillation Status: Acute Assessment and Plan: Continue home medication Quality VTE Prophylaxis VTE prophylaxis: mechanical ordered Hospitalist MIPS Advance Care Plan I have confirmed that the patient's Advanced Care Plan is present, code status is documented, or surrogate decision maker is listed in patient medical record.: Yes Medication Reconciliation I have utilized all available resources to obtain, update and review the patients current medications (includes all prescriptions, OTC, herbals, cannabis, and nutritional supplements).: Yes
--- NOTE | 2024-10-16 19:53 | ADMGEN ---
This patient, Bulmaro Gamez, was admitted to Medical Room 250-01. Patient/family oriented to hospital policies and general routines including ID bracelet, bed and alarms, visiting hours, pain management, procedures, bathroom and other care routines, personal items, smoking policy, room service/diet, and visiting hours. Information on how to activate the Rapid Response Team has been discussed. Patient/Family are encouraged to report perceived risks to care and to ask questions if they do not understand what they are told or what they should do.
[2024-10-16 20:07] LABS: Hemoglobin 6.2 g/dL (14.0-18.0)
[2024-10-16 20:08] LABS: Hematocrit 20.3 % (42.0-52.0)
[2024-10-16] MEDS: SODIUM CHLORIDE 0.9% IV 250 ML 30 ML (21:10)
[2024-10-17] VITALS (7 sets, daily range): BP systolic 115–144; BP diastolic 47–58; PULSE 65–85; RESP 16–20; TEMP 36.7–36.9; O2SAT 94–98
[2024-10-17 02:42] LABS: Hematocrit 22.1 % (42.0-52.0); Hemoglobin 7.1 g/dL (14.0-18.0)
[2024-10-17 08:24] LABS: Basophils Absolute Auto 0.1 K/mm3 (0.0-0.1); Basophils Percent Auto 0.9 % (0.2-1.2); Eosinophils Absolute Auto 0.3 K/mm3 (0-0.3); Eosinophils Percent Auto 3.9 % (0-4.4); Hematocrit 23.2 % (42.0-52.0); Hemoglobin 7.2 g/dL (14.0-18.0); Immature Granulocyte Absolute 0.03 K/mm3 (0.00-0.031); Immature Granulocyte Percent A 0.4 % (0-0.5); Lymphocytes Absolute Auto 0.82 K/mm3 (0.9-3.2); Lymphocytes Percent Auto 10.5 % (18.3-44.2); Mean Corpuscular Hemoglobin 31.7 pg (26-34); Mean Corpuscular Volume 102.2 fl (80-100); Mean Platelet Volume 8.8 fl (7.4-10.4); Monocytes Absolute Auto 0.6 K/mm3 (0.1-0.6); Neutrophils Percent Auto 76.3 % (45.5-73.1); Platelet Count Result 281 k/mm3 (150-375); Red Blood Count 2.27 M/mm3 (4.6-6.20); Red Cell Distribution Width 19.8 % (11.5-14.5); White Blood Count 7.8 K/mm3 (4.5-10.0)
[2024-10-17 08:35] LABS: Alanine Aminotransferase 31 U/L (6-50); Albumin Level 2.9 g/dL (3.5-5.1); Alkaline Phosphatase 127 U/L (38-126); Anion Gap 2 mmol/L (4-12); Aspartate Amino Transferase 31 U/L (17-59); Bilirubin,Total 0.5 mg/dL (0.2-1.3); Blood Urea Nitrogen 63 mg/dL (9-20); Calcium 7.8 mg/dL (8.4-10.2); Carbon Dioxide 36 mmol/L (22-30); Chloride 100 mmol/L (98-107); Estimated CRCL calculation 14 ml/min; Estimated Glomerular Filt Rate 14; Glucose 91 mg/dL (65-110); Magnesium 2.2 mg/dL (1.6-2.3); Sodium 138 mmol/L (137-145)
[2024-10-17] MEDS: PANTOPRAZOLE 40 MG TABLET PO (09:53)
[2024-10-17] MEDS: METOPROLOL TARTRATE 25 MG TABLET PO (09:53)
[2024-10-17] MEDS: FERROUS SULFATE 325 MG TABLET DR BY MOUTH (09:53)
[2024-10-17] MEDS: VITAMIN B CMPLX/VIT C/FOLIC AC 1 CAPSULE 1 CAP PO (09:53)
[2024-10-17] MEDS: ASPIRIN 81 MG ENTERIC TABLET PO (09:54)
[2024-10-17] MEDS: calcitrioL 0.25 MCG CAPSULE PO (09:54)
[2024-10-17] MEDS: FUROSEMIDE 40 MG TABLET PO ×2 (09:54→17:42)
[2024-10-17] MEDS: SODIUM BICARBONATE TAB 650 MG TABLET PO (09:54)
[2024-10-17] MEDS: AMIODARONE HCL 200 MG TABLET 400 MG BY MOUTH (09:54)
--- NOTE | 2024-10-17 10:40 | PM.CNNEP ---
Assessment and Plan Assessment and plan (1) End stage renal disease: Code(s): N18.6 - End stage renal disease Status: Chronic Assessment and Plan: the patient has end-stage renal disease. He had his dialysis treatment yesterday. etiology unavailable right now. He does have diabetes hypertension and has had an ANCA associated vasculitis. Volume status looks okay. Potassium and CO2 are both good. He does have a metabolic alkalosis so we can stop his sodium bicarbonate pills (2) Anemia: Qualifiers: Anemia type: unspecified type Qualified Code(s): D64.9 - Anemia, unspecified Code(s): D64.9 - Anemia, unspecified Status: Acute Assessment and Plan: the patient has had anemia. He had scopes from above and below in [place]. His iron level was low in August. Will repeat this. He did have an ANCA associated vasculitis in the past so could have some sort of destructive process of an immune nature I suppose. Will check LDH and Priya. He does not show microspherocytes or schistocytes on his smear. will check a stool guaiac as well. If present then possibly he needs a capsule endoscopy. will check another CBC tomorrow (3) Diabetes: Code(s): E11.9 - Type 2 diabetes mellitus without complications Status: Chronic Assessment and Plan: patient has diabetes. He is not on any insulin for this or other medications. Hospitalists to manage (4) Renal osteodystrophy: Code(s): N25.0 - Renal osteodystrophy Status: Acute Assessment and Plan: will check a phosphorus tomorrow (5) Atrial fibrillation: Code(s): I48.91 - Unspecified atrial fibrillation Status: Acute Plan heart rate is regular now. History of Present Illness Reason for Consult Consult date: 10/17/24 Chief Complaint Chief complaint: anemia, esrd History of Present Illness Narrative: Bulmaro is a very pleasant 74-year-old gentleman who has multiple medical problems including end-stage renal disease on dialysis 3 times a week on Tuesdays and Saturdays, history of ANCA associated vasculitis, diastolic dysfunction, hypertension, paroxysmal atrial fibrillation, anemia, renal osteodystrophy, diabetes, pleural effusion and pericardial effusion in the past, hyperuricemia, hyperlipidemia. The patient was recently discharged from the hospital for pneumonia and anemia. GI was consulted but they did not do scopes because they had recently been done at [facility] within the last couple of months. It is unclear why he had the anemia. They did give him GILBERT and held the Eliquis. He was discharged on 09/11. On the day of admission this time the patient was in dialysis and blood count was checked and his hemoglobin is only 5.2 so he was sent to the ER. The chart says that he felt fine. Hospitalist talked with family who translated. I tried using a phone call nail making machine setter system but the patient could not hear the phone so I was unable to directly communicate with the patient. He apparently had a negative review of systems per the history and physical by CLARE Luis. The patient received some blood and his hemoglobin is now up to 7.2 which is where it was in August. The patient's iron saturation was low in August. I do not know if he got any iron at the dialysis unit. We can recheck this he is getting an GILBERT at the dialysis unit. The patient has had no bowel movements since he got here. His white cell count and platelet count are both normal. Review of Systems Review of Systems: ROS unobtainable: Yes other ( unobtainable due to language barrier) [facility] Past Medical History Medical History Diastolic congestive heart failure ANCA-associated vasculitis Hyperlipidemia Hyperuricemia Diabetes Hypertension Atrial fibrillation Pleural effusion Hypotension Acute on chronic anemia Pericardial effusion History of end stage renal disease Anemia Surgical History Surgical History History of back surgery H/O bilateral cataract extraction Family History Family History Father Myocardial infarct Sibling Myocardial infarct Mother Dementia Social History Social History Smoking status: Former smoker Additional smoking assessment comments: quit many years ago Alcohol intake: never Substance use: never Do You Feel Safe in your Home?: Yes Lack of Transportation: No Lack of Food: Never True Current Housing: I Have Housing Concerned About Future Housing: No Difficulty Paying Gas/Electric Bills: No Difficulty Paying for Meds: No Currently Unemployed: No Education: High School Diploma/GED Difficulty w/ Childcare or Family Care: No Spiritual care concerns: No Meds Home Medications and Allergies Home Medications ?Medication ?Instructions ?Recorded ?Confirmed ?Type allopurinol 100 mg tablet See Rx Instructions .Route .COMPLEX 09/06/24 10/16/24 History amiodarone 400 mg tablet 200 mg PO DAILY 09/06/24 10/16/24 History calcitriol 0.25 mcg capsule 0.25 mcg PO DAILY 09/06/24 10/16/24 History doxazosin 4 mg tablet (Cardura) 4 mg PO QPM 09/06/24 10/16/24 History ferrous sulfate 325 mg (65 mg 325 mg PO DAILY 09/06/24 10/16/24 History iron) tablet (iron) furosemide 40 mg tablet 120 mg PO BID 09/06/24 10/16/24 History metoprolol tartrate 25 mg tablet 25 mg PO DAILY 09/06/24 10/16/24 History pantoprazole 40 mg tablet,delayed 40 mg PO QAM 09/06/24 10/16/24 History release (Protonix) vitamin B complex-vitamin C-folic 1 tablet PO DAILY 09/06/24 10/16/24 History acid 800 mcg chewable tablet (Dialyvite 800) aspirin 81 mg tablet,delayed 81 mg PO QAM #30 tabs 09/11/24 10/16/24 Rx release atorvastatin 40 mg tablet 80 mg (2 x 40 mg) PO EVENING #30 09/11/24 10/16/24 Rx tabs sodium bicarbonate 650 mg tablet 650 mg PO DAILY #30 tabs 10/07/24 10/16/24 Rx Allergies Allergy/AdvReac Type Severity Reaction Status Date / Time No Known Allergies Allergy Unverified 09/06/24 13:40 Vital Signs Vital Signs - 24 hr 10/16/24 13:23 10/16/24 15:30 10/16/24 17:04 Temperature 98.1 F 97.9 F Pulse Rate 66 70 75 Respiratory Rate 14 16 20 Blood Pressure 123/35 L 118/39 L 131/50 L Pulse Oximetry 95 97 100 Oxygen Delivery Room Air Room Air Oxygen Flow Rate 10/16/24 17:22 10/16/24 18:22 10/16/24 19:00 Temperature 97.9 F 98 F 97.9 F Pulse Rate 72 70 72 Respiratory Rate 16 16 16 Blood Pressure 132/46 L 131/47 L 136/49 L Pulse Oximetry 100 100 100 Oxygen Delivery Oxygen Flow Rate 10/16/24 20:00 10/16/24 20:10 10/16/24 20:39 Temperature 97.9 F 97.9 F Pulse Rate 74 74 74 Respiratory Rate 20 20 20 Blood Pressure 130/48 L 130/48 L Pulse Oximetry 100 100 100 Oxygen Delivery Nasal Cannula Oxygen Flow Rate 2 10/16/24 21:17 10/16/24 21:32 10/16/24 22:32 Temperature 98.1 F 97.1 F L 98.2 F Pulse Rate 75 75 81 Respiratory Rate 20 18 20 Blood Pressure 127/40 L 141/40 H 136/45 L Pulse Oximetry 98 97 99 Oxygen Delivery Oxygen Flow Rate 10/16/24 23:32 10/16/24 23:39 10/17/24 04:09 Temperature 98 F 98 F 98.3 F Pulse Rate 82 82 83 Respiratory Rate 18 18 20 Blood Pressure 139/48 L 139/48 L 135/51 L Pulse Oximetry 95 95 95 Oxygen Delivery Oxygen Flow Rate 10/17/24 09:53 10/17/24 09:54 10/17/24 10:09 Temperature Pulse Rate 70 70 85 Respiratory Rate 16 Blood Pressure 144/57 H Pulse Oximetry 98 Oxygen Delivery Oxygen Flow Rate Exam Narrative: Exam Narrative: Well developed well-nourished male in no acute distress Skin is warm and dry without rash Head normocephalic atraumatic Eyes normal sclerae and conjunctivae Mouth normal lips teeth and gums Neck no nodes no thyromegaly no carotid bruits Axillae no nodes Back no CVA tenderness Lungs symmetric and clear to auscultation and percussion Heart regular rate and rhythm without rub or gallop Abdomen bowel sounds positive soft nontender, no HSM, masses, or bruits. Extremities no cyanosis, clubbing, or edema Pulses 2+ equal in radial arteries Psychological not anxious or depressed Neuro alert and oriented x3 motor 5/5 cranial nerves 2-12 intact reflexes 2+ and equal in the biceps and patellar tendons cerebellar normal rapid alternating movements Results Lab Results 10/17/24 07:56 10/17/24 07:56 Lab results: Most recent lab results Calcium 7.8 mg/dL (8.4-10.2) L 10/17/24 07:56 Magnesium 2.2 mg/dL (1.6-2.3) 05/18/25 07:56
[2024-10-17 11:08] LABS: Immature Reticulocyte Fraction 23.2 % (3.0-15.9); Reticulocyte Hemoglobin Conten 34.5 pg (28.2-36.6); Reticulocyte Percent 2.56 % (0.7-4.3); Reticulocytes Absolute 0.06 10^6/uL (0.02-0.10)
[2024-10-17 11:14] LABS: Iron 77 ug/dL (49-181); Lactate Dehydrogenase 169 U/L (120-246)
[2024-10-17 11:24] LABS: Percent Iron Saturation 36 % (20-50)
--- NOTE | 2024-10-17 12:49 | P.PNIM_ITS ---
Progress Note: A&P Assessment and Plan (1) Acute on chronic anemia: Code(s): D64.9 - Anemia, unspecified Status: Acute Assessment and Plan: Hb 7.2 s/p 2 units Q.6 are H&H Transfuse for hemoglobin less than 7 or symptomatic Gi consulted Patient noted he follows with GI outpatient and has follow up shceduled with Dr Cunningham in November however due to low HB will monitor him one more day and GI consulted (2) ESRD on dialysis: Code(s): N18.6 - End stage renal disease; Z99.2 - Dependence on renal dialysis Status: Acute Assessment and Plan: Dialysis Friday Continue home medications Nephrology following (3) Diabetes: Code(s): E11.9 - Type 2 diabetes mellitus without complications Status: Chronic Assessment and Plan: Not On medication home Managed by diet (4) Gout: Code(s): M10.9 - Gout, unspecified Status: Acute Assessment and Plan: Continue home medication (5) Hyperlipidemia: Code(s): E78.5 - Hyperlipidemia, unspecified Status: Acute Assessment and Plan: Continue home medication (6) Atrial fibrillation: Code(s): I48.91 - Unspecified atrial fibrillation Status: Acute Assessment and Plan: Continue home medication Plan DVT prophylaxis on SCds, no AC due to possibel GI bleed Subjective Date/time seen: 10/17/24 12:49 Interval history: COmfortable at bedside patient requesting discharge that he follows up with GI outaptient and has follow up scheduled for November however because hb is tethering on 7.2 after 2 units will monitor one more day GI consulted however Review of Systems Review of Systems: 12 systems were reviewed and are negativ e except for as per HPI. Exam Narrative: General: well appearing, appears stated age. HEENT: normocephalic, atraumatic. Mucous membranes moist. EOMI, PERRLA, bilateral sclera anicteric, no conjunctival injection. Neck supple without JVD, lymphadenopathy, or bruit. Respiratory: clear to ascultation bilaterally. No rales/rhonic/wheezes. Cardiovascular: Regular rate and rhythm, normal S1-S2 upon ascultation. No murmurs, rubs, or clicks. PMI is nondisplaced, capillary refill less than [address] Left AV fistula positive bruit and thrill Abdomen: Soft, round, no pulsatile masses, nondistended and nontender. No rebound, no guarding. No CVA tenderness, no hepatosplenomegaly. Bowel sounds present to all four quadrants. No high pitch or tinkling sounds, resonant to percussion. Extremities: No cyanosis, clubbing, or edema present. Pulses are palpable 2/2. Active ROM to all four extremities. Neuro: Alert and orientated x 4. PERRLA. Cranial nerves 2-12 intact without focal deficit. Skin: Warm, dry, and intact, without rash, erythema, or lesion. Psych: pleasant, cooperative, normal speech, normal affect, no hallucinations, no dysarthia Objective Data Vital Signs Vital Signs: Vital Signs - 24 hr 10/16/24 13:23 10/16/24 15:30 10/16/24 17:04 Temperature 98.1 F 97.9 F Pulse Rate 66 70 75 Respiratory Rate 14 16 20 Blood Pressure 123/35 L 118/39 L 131/50 L Pulse Oximetry 95 97 100 Oxygen Delivery Room Air Room Air Oxygen Flow Rate 10/16/24 17:22 10/16/24 18:22 10/16/24 19:00 Temperature 97.9 F 98 F 97.9 F Pulse Rate 72 70 72 Respiratory Rate 16 16 16 Blood Pressure 132/46 L 131/47 L 136/49 L Pulse Oximetry 100 100 100 Oxygen Delivery Oxygen Flow Rate 10/16/24 20:00 10/16/24 20:10 10/16/24 20:39 Temperature 97.9 F 97.9 F Pulse Rate 74 74 74 Respiratory Rate 20 20 20 Blood Pressure 130/48 L 130/48 L Pulse Oximetry 100 100 100 Oxygen Delivery Nasal Cannula Oxygen Flow Rate 2 10/16/24 21:17 10/16/24 21:32 10/16/24 22:32 Temperature 98.1 F 97.1 F L 98.2 F Pulse Rate 75 75 81 Respiratory Rate 20 18 20 Blood Pressure 127/40 L 141/40 H 136/45 L Pulse Oximetry 98 97 99 Oxygen Delivery Oxygen Flow Rate 10/16/24 23:32 10/16/24 23:39 10/17/24 04:09 Temperature 98 F 98 F 98.3 F Pulse Rate 82 82 83 Respiratory Rate 18 18 20 Blood Pressure 139/48 L 139/48 L 135/51 L Pulse Oximetry 95 95 95 Oxygen Delivery Oxygen Flow Rate 10/17/24 09:53 10/17/24 09:54 10/17/24 10:00 Temperature Pulse Rate 70 70 Respiratory Rate Blood Pressure Pulse Oximetry Oxygen Delivery Room Air Oxygen Flow Rate 10/17/24 10:09 Temperature Pulse Rate 85 Respiratory Rate 16 Blood Pressure 144/57 H Pulse Oximetry 98 Oxygen Delivery Oxygen Flow Rate Intake/Output Intake/Output: Intake & Output 10/14/24 10/15/24 10/16/24 10/17/24 23:59 23:59 23:59 23:59 Intake Total 700 440 Balance 700 440 Meds/Results Medications: Active Medications Generic Name Dose Route Start Last Admin Trade Name Freq PRN Reason Stop Dose Admin Acetaminophen 650 mg 10/16/24 17:22 Acetaminophen 325 Mg Tablet PO Q4H PRN Mild Pain (1-3) or Fever Allopurinol 100 mg 10/19/24 18:00 Allopurinol 100 Mg Tablet BY MOUTH [email or web address] [facility] Amiodarone HCl 400 mg 10/17/24 08:00 10/17/24 09:54 Amiodarone Hcl 200 Mg Tablet BY MOUTH 400 mg DAILY@0800 [facility] Administration Aspirin 81 mg 10/17/24 09:00 10/17/24 09:54 Aspirin 81 Mg Enteric Tablet PO 81 mg QAM [facility] Administration Atorvastatin Calcium 80 mg 10/17/24 18:00 Atorvastatin 40 Mg Tablet PO QPM [facility] Calcitriol 0.25 mcg 10/17/24 09:00 10/17/24 09:54 Calcitriol 0.25 Mcg Capsule PO 0.25 mcg DAILY NICOLE Administration Doxazosin Mesylate 4 mg 10/17/24 18:00 Doxazosin Mesylate 4 Mg Tablet PO QPM [facility] Ferrous Sulfate 325 mg 10/17/24 09:00 10/17/24 09:53 Ferrous Sulfate [address] BY MOUTH 325 mg DAILY NICOLE Administration Furosemide 40 mg 10/17/24 09:00 10/17/24 09:54 Furosemide 40 Mg Tablet PO 40 mg BID [facility] Administration Metoprolol Tartrate 25 mg 10/17/24 09:00 10/17/24 09:53 Metoprolol Tartrate 25 Mg Tablet PO 25 mg DAILY NICOLE Administration Ondansetron HCl 4 mg 10/16/24 17:22 Ondansetron Inj 4 Mg/2 Ml Vial IV PUSH Q4H PRN Nausea Pantoprazole Sodium 40 mg 10/17/24 09:00 10/17/24 09:53 Pantoprazole 40 Mg Tablet PO 40 mg QAM [facility] Administration Vitamin B Complex/Folic Acid 1 cap 10/17/24 09:00 10/17/24 09:53 Vitamin B Cmplx/Vit C/Folic Ac 1 Capsule PO 1 cap QAM NICOLE Administration Labs Labs: Laboratory Results - last 24 hr 10/16/24 10/16/24 10/17/24 15:35 19:55 02:03 WBC 7.3 RBC 1.55 L Hgb 5.2 L* 6.2 L* 7.1 L Hct 17.0 L* 20.3 L* 22.1 L MCV 109.7 H MCH 33.5 MCHC 30.6 L RDW 18.0 H Plt Count 255 MPV 8.9 Immature Gran % (Auto) 0.4 Neut % (Auto) 81.9 H Lymph % (Auto) 8.0 L [place] % (Auto) 6.0 Eos % (Auto) 3.0 Baso % (Auto) 0.7 Lymph # (Auto) 0.58 L [place] # (Auto) 0.4 Eos # (Auto) 0.2 Baso # (Auto) 0.1 Abs Immat Gran (auto) 0.03 Absolute Neuts (auto) 6.0 Absolute Nucleated RBC 0.000 Band Neutrophils % Not Reportable Nucleated RBC % 0.0 Platelet Estimate Adequate Hypochromasia 2+ Anisocytosis 2+ Ovalocytes 1+ Schistocytes None seen Absolute Retic Percent Retic Immature Retic Fraction Retic Hgb Content PT 15.3 H INR 1.2 APTT 34.6 Sodium 138 Potassium 3.7 Chloride 95 L Carbon Dioxide 36 H Anion Gap 7 BUN 53 H D Creatinine 2.89 H Estim Creat Clear Calc 20 Estimated GFR 21 L Glucose 144 H Calcium 7.8 L Magnesium Iron TIBC % Saturation Ferritin Total Bilirubin AST ALT Alkaline Phosphatase Lactate Dehydrogenase Total Protein Albumin Blood Type O Positive Antibody Screen Negative Crossmatch See Detail 10/17/24 10/17/24 10/17/24 07:52 07:56 07:56 WBC 7.8 RBC 2.27 L Hgb Cancelled 7.2 L Hct Cancelled MCV MCH MCHC RDW Plt Count MPV Immature Gran % (Auto) Neut % (Auto) Lymph % (Auto) [place] % (Auto) Eos % (Auto) Baso % (Auto) Lymph # (Auto) [place] # (Auto) Eos # (Auto) Baso # (Auto) Abs Immat Gran (auto) Absolute Neuts (auto) Absolute Nucleated RBC Band Neutrophils % Nucleated RBC % Platelet Estimate Hypochromasia Anisocytosis Ovalocytes Schistocytes Absolute Retic 0.06 Percent Retic 2.56 Immature Retic Fraction 23.2 H Retic Hgb Content 34.5 PT INR APTT Sodium Potassium Chloride Carbon Dioxide Anion Gap BUN Creatinine Estim Creat Clear Calc Estimated GFR Glucose Calcium Magnesium Iron 77 TIBC 212 L % Saturation 36 Ferritin 385.00 H Total Bilirubin AST ALT Alkaline Phosphatase Lactate Dehydrogenase 169 Total Protein Albumin Blood Type Antibody Screen Crossmatch 10/17/24 07:56 WBC RBC Hgb Hct 23.2 L MCV 102.2 H D MCH 31.7 D MCHC 31.0 L RDW 19.8 H Plt Count 281 MPV 8.8 Immature Gran % (Auto) 0.4 Neut % (Auto) 76.3 H Lymph % (Auto) 10.5 L [place] % (Auto) 8.0 Eos % (Auto) 3.9 Baso % (Auto) 0.9 Lymph # (Auto) 0.82 L [place] # (Auto) 0.6 Eos # (Auto) 0.3 Baso # (Auto) 0.1 Abs Immat Gran (auto) 0.03 Absolute Neuts (auto) 6.0 Absolute Nucleated RBC 0.000 Band Neutrophils % Nucleated RBC % 0.0 Platelet Estimate Hypochromasia Anisocytosis Ovalocytes Schistocytes Absolute Retic Percent Retic Immature Retic Fraction Retic Hgb Content PT INR APTT Sodium 138 Potassium 4.0 Chloride 100 Carbon Dioxide 36 H Anion Gap 2 L BUN 63 H D Creatinine 4.08 H Estim Creat Clear Calc 14 Estimated GFR 14 L Glucose 91 Calcium 7.8 L Magnesium 2.2 Iron TIBC % Saturation Ferritin Total Bilirubin 0.5 AST 31 ALT 31 Alkaline Phosphatase 127 H Lactate Dehydrogenase Total Protein 5.0 L Albumin 2.9 L Blood Type Antibody Screen Crossmatch Quality VTE Prophylaxis VTE prophylaxis: mechanical ordered
[2024-10-17 12:50] LABS: Erythrocyte Sedimentation Rate 95 mm/hr (0-20)
[2024-10-17] MEDS: DOXAZOSIN MESYLATE 4 MG TABLET PO (17:42)
[2024-10-17] MEDS: ATORVASTATIN 40 MG TABLET 80 MG PO (17:42)
[2024-10-18] VITALS (11 sets, daily range): BP systolic 128–151; BP diastolic 42–57; PULSE 68–86; RESP 16–18; TEMP 36.3–37.7; O2SAT 95–97
[2024-10-18 05:13] LABS: Basophils Absolute Auto 0.1 K/mm3 (0.0-0.1); Basophils Percent Auto 0.7 % (0.2-1.2); Eosinophils Absolute Auto 0.4 K/mm3 (0-0.3); Eosinophils Percent Auto 4.6 % (0-4.4); Hematocrit 22.1 % (42.0-52.0); Immature Granulocyte Absolute 0.03 K/mm3 (0.00-0.031); Immature Granulocyte Percent A 0.4 % (0-0.5); Lymphocytes Absolute Auto 0.88 K/mm3 (0.9-3.2); Lymphocytes Percent Auto 10.6 % (18.3-44.2); Mean Corpuscular HGB Conc 30.3 g/dl (32-36); Mean Corpuscular Hemoglobin 31.8 pg (26-34); Mean Corpuscular Volume 104.7 fl (80-100); Mean Platelet Volume 8.6 fl (7.4-10.4); Monocytes Absolute Auto 0.6 K/mm3 (0.1-0.6); Monocytes Percent Auto 7.1 % (2.6-8.5); Neutrophils Absolute Auto 6.3 K/mm3 (1.3-6.7); Neutrophils Percent Auto 76.6 % (45.5-73.1); Platelet Count Result 256 k/mm3 (150-375); Red Blood Count 2.11 M/mm3 (4.6-6.20); Red Cell Distribution Width 18.8 % (11.5-14.5); White Blood Count 8.3 K/mm3 (4.5-10.0)
[2024-10-18 05:18] LABS: Hemoglobin 6.7 g/dL (14.0-18.0)
[2024-10-18 05:37] LABS: Alanine Aminotransferase 29 U/L (6-50); Albumin Level 2.8 g/dL (3.5-5.1); Alkaline Phosphatase 156 U/L (38-126); Anion Gap 7 mmol/L (4-12); Aspartate Amino Transferase 30 U/L (17-59); Bilirubin,Total 0.3 mg/dL (0.2-1.3); Blood Urea Nitrogen 81 mg/dL (9-20); Calcium 7.7 mg/dL (8.4-10.2); Carbon Dioxide 30 mmol/L (22-30); Chloride 100 mmol/L (98-107); Estimated CRCL calculation 12 ml/min; Estimated Glomerular Filt Rate 11; Glucose 106 mg/dL (65-110); Magnesium 2.3 mg/dL (1.6-2.3); Sodium 137 mmol/L (137-145)
[2024-10-18] MEDS: SODIUM CHLORIDE 0.9% IV 250 ML 30 ML IV CONT (05:50)
[2024-10-18 06:02] LABS: Hepatitis B Surface Antigen Negative (Negative)
[2024-10-18 06:19] LABS: Hepatitis B Surface Anti Res Negative
--- NOTE | 2024-10-18 08:02 | P.CONGI_ITS ---
Assessment and Plan Assessment and plan (1) Acute on chronic anemia: Code(s): D64.9 - Anemia, unspecified Status: Acute (2) ESRD (end stage renal disease): Code(s): N18.6 - End stage renal disease Status: Acute (3) Macrocytosis: Code(s): D75.89 - Other specified diseases of blood and blood-forming organs Status: Acute (4) Elevated alkaline phosphatase level: Code(s): R74.8 - Abnormal levels of other serum enzymes Status: Acute Plan 1. Acute on chronic anemia/ESRD/macrocytosis: Unremarkable EGD and colonoscopy a few months ago while admitted to [facility]. No signs of active GI bleeding. On admission patient shown to have Hgb 5.2 and he has received 2 units PRBC's and today HGB 6.7. Patient was seen by GI during his last admission in August. Labs show macrocytosis which is new since his last [place] admission in August, on admission MCV 110 and today 105. Patient has required IV iron and blood transfusion periodically. No signs of active GI bleeding. * As previously recommended consider hem/onc referral outpatient vs inpatient but anemia is likely secondary to multiple comorbidities including ESRD requiring HD 3 days weekly * B12 and folate ordered, primary team to correct in deficient * Continue to monitor H/H and transfuse as needed to keep Hgb >7 * no indication for endoscopic evaluation at this time given recent negative work up but may consider outpatient capsule endoscopy with primary GI to evaluate for possible small bowel source of blood loss 2. Elevated Alkaline phosphatase: LFT's normal except Alk Phos at 156. * elevation likely secondary to known ESRD, no need for additional work up at this time Thank you very much for allowing me to share in the care of this very nice patient. This report may have been done utilizing a voice recognition system. Attempts have been made to correct errors. However, there may be uncorrected grammatical, spelling, and recognition errors present. GI Consult Note Consult date/time: 10/18/24 08:02 Reason for consult: Anemia HPI: Bulmaro Gamez is a 74 year old male with PMSH of ESRD, diastolic CHF, HLD, HTN, diabetes, GOUT, A-Fib and chronic anemia. He presented to the ER 10/16/2024 after outside labs showed Hgb at 5.2. GI has been consulted for anemia. Patient was last seen by GI during his admission 09/09/2024 at which time no GI workup was ordered as patient already had a GI workup during a hospitalization at [facility] earlier this year and had unremarkable EGD and colonoscopy. During his last evaluation a hematology/oncology referral as outpatient. On presentation to the ER after having abnormal labs outpatient and was found to have a Hgb of 5.2. He has received 2 units PRBC this admission. Patient started hemodialysis around July of this year, has a Hx of chronic anemia and requires IV iron and blood transfusions periodically. He see GI outpatient. Limited subjective information obtained as the patient is primarily Jordanian speaking but does now Sammarinese, this is combination with the fact that he is very hard of hearing. Will have Dr. Ferrell see patient later today who is also Jordanian speaking to see if he is able to obtain more information. ENDOSCOPY HISTORY: Per records the patient had an EGD and colonoscopy performed a few months ago during an admission at [facility] LABS AND STOOL STUDIES: Labs 10/18/2024: Sodium 137, potassium 4.0, BUN 81, creatinine 5.06, GFR 11, calcium 7.7 WBC 8, Hgb 6.7, Hct 22, MCV 105, platelets 256, INR 1.2 Total bilirubin 0.3, AST 30, ALT 29, Alkaline Phos 156, albumin 2.8 magnesium 2.3 Labs 10/17/2024: Sodium 138, potassium 4.0, BUN 63, creatinine 4.08, GFR 14 WBC 7.8, Hgb 7, Hct 23, MCV 102, platelets 281 Total bilirubin 0.5, AST 31, ALT 31, Alkaline Phos 127, albumin 2.9 Total iron 77, TIBC 212, iron sat 36, ferritin 385 Retic present 2.56%. Erythropoietin checked in August.6 Labs 10/16/2024: WBC 7, Hgb 5.2, Hct 17, MCV 110, platelets 255 IMAGING: No recent GI imaging Review of Systems 2 Constitutional: Constitutional: Reports as per HPI ENT: Reports as per HPI Cardiovascular: Cardiovascular: Reports as per HPI, Denies chest pain and Denies dyspnea Respiratory: Respiratory: Denies dyspnea Gastrointestinal: Gastrointestinal: Reports as per HPI Musculoskeletal: Musculoskeletal: Reports as per HPI Integumentary/Breasts: Skin/Breast: Reports as per HPI Psychiatric: Psychiatric: Reports as per HPI Endocrine: Endocrine: Reports no additional endocrine complaints Hematologic/Lymphatic: Hematologic/Lymphatic: Reports no additional hematologic/lymphatic complaints [facility] Past Medical History Medical History Diastolic congestive heart failure ANCA-associated vasculitis Hyperlipidemia Hyperuricemia Diabetes Hypertension Atrial fibrillation Pleural effusion Hypotension Acute on chronic anemia Pericardial effusion History of end stage renal disease Anemia Surgical History Surgical History History of back surgery H/O bilateral cataract extraction Family History Family History Father Myocardial infarct Sibling Myocardial infarct Mother Dementia Social History Social History Smoking status: Former smoker Additional smoking assessment comments: quit many years ago Alcohol intake: never Substance use: never Do You Feel Safe in your Home?: Yes Lack of Transportation: No Lack of Food: Never True Current Housing: I Have Housing Concerned About Future Housing: No Difficulty Paying Gas/Electric Bills: No Difficulty Paying for Meds: No Currently Unemployed: No Education: High School Diploma/GED Difficulty w/ Childcare or Family Care: No Spiritual care concerns: No Meds Home Medications and Allergies Home Medications ?Medication ?Instructions ?Recorded ?Confirmed ?Type allopurinol 100 mg tablet See Rx Instructions .Route .COMPLEX 09/06/24 10/16/24 History amiodarone 400 mg tablet 200 mg PO DAILY 09/06/24 10/16/24 History calcitriol 0.25 mcg capsule 0.25 mcg PO DAILY 09/06/24 10/16/24 History doxazosin 4 mg tablet (Cardura) 4 mg PO QPM 09/06/24 10/16/24 History ferrous sulfate 325 mg (65 mg 325 mg PO DAILY 09/06/24 10/16/24 History iron) tablet (iron) furosemide 40 mg tablet 120 mg PO BID 09/06/24 10/16/24 History metoprolol tartrate 25 mg tablet 25 mg PO DAILY 09/06/24 10/16/24 History pantoprazole 40 mg tablet,delayed 40 mg PO QAM 09/06/24 10/16/24 History release (Protonix) vitamin B complex-vitamin C-folic 1 tablet PO DAILY 09/06/24 10/16/24 History acid 800 mcg chewable tablet (Dialyvite 800) aspirin 81 mg tablet,delayed 81 mg PO QAM #30 tabs 09/11/24 10/16/24 Rx release atorvastatin 40 mg tablet 80 mg (2 x 40 mg) PO EVENING #30 09/11/24 10/16/24 Rx tabs Allergies Allergy/AdvReac Type Severity Reaction Status Date / Time No Known Allergies Allergy Unverified 09/06/24 13:40 Vital Signs Vital Signs - 24 hr 10/17/24 09:53 10/17/24 09:54 10/17/24 10:00 Temperature Pulse Rate 70 70 Respiratory Rate Blood Pressure Pulse Oximetry Oxygen Delivery Room Air Fraction of Inspired Oxygen 10/17/24 10:09 10/17/24 14:00 10/17/24 20:00 Temperature 98.5 F Pulse Rate 85 65 Respiratory Rate 16 19 Blood Pressure 144/57 H 115/58 L Pulse Oximetry 98 94 Oxygen Delivery Room Air Fraction of Inspired Oxygen 10/17/24 20:52 10/17/24 21:24 10/18/24 03:10 Temperature 98.1 F 97.4 F L Pulse Rate 75 77 82 Respiratory Rate 20 18 18 Blood Pressure 134/47 L 140/50 L Pulse Oximetry 95 94 95 Oxygen Delivery Room Air Fraction of Inspired Oxygen 21 10/18/24 05:49 10/18/24 06:05 10/18/24 07:05 Temperature 98.3 F 97.9 F 99.8 F H Pulse Rate 81 81 83 Respiratory Rate 16 16 16 Blood Pressure 138/52 L 142/50 H 141/50 H Pulse Oximetry 95 96 97 Oxygen Delivery Fraction of Inspired Oxygen Exam 2 Const: General: cooperative, comfortable, no acute distress and well developed Orientation/consciousness: oriented to person, oriented to place, oriented to time and patient oriented x3 HENMT: Head: normal to inspection, normocephalic and atraumatic Mouth: Yes Normal oral and palatal mucosa present and Yes moist mucous membranes Eyes: General: appearance normal, both eyes and all related structures C onjunctivae: conjunctivae normal Sclera: sclerae normal Pupils: Equal, round and reactive pupils present Neck: Neck: normal visual inspection Chest: Chest palpation & inspection: normal inspection of the chest Resp: Effort & Inspection: normal respiratory effort and able to speak in complete sentences Auscultation: clear to auscultation bilaterally Cardio: Jugular venous distension: no JVD Rate: regular rate Rhythm: r egular rhythm Heart sounds: S1 normal heart sound present and S2 normal heart sound present GI: Inspection: normal to inspection GI Palp: Yes Soft to palpation and Yes No hepatosplenomegaly present Auscultation: normal bowel sounds Rectal Exam: deferred Skin: General skin exam: normal color and no rashes or lesions noted Neuro: General: oriented to person, oriented to place, oriented to time and patient oriented x3 Cranial nerves: Yes Equal, round and reactive pupils present Speech: normal speech Extrem: General: normal to inspection and no clubbing, cyanosis or edema Psych: Appearance: grossly normal and well kempt Affect: normal affect Results Labs 10/18/24 04:45 10/18/24 04:45 Labs: Short CBC 10/17/24 10/17/24 10/17/24 Range/Units 07:56 07:56 07:56 WBC 7.8 (4.5-10.0) K/mm3 Hgb Cancelled 7.2 L Hct Cancelled 23.2 L Plt Count 281 (150-375) k/mm3 10/18/24 Range/Units 04:45 WBC 8.3 (4.5-10.0) K/mm3 Hgb 6.7 L* Hct 22.1 L Plt Count 256 (150-375) k/mm3 BMP 10/17/24 10/18/24 07:56 04:45 Sodium 138 137 Potassium 4.0 4.0 Chloride 100 100 Carbon Dioxide 36 H 30 BUN 63 H D 81 H D Creatinine 4.08 H 5.06 H Glucose 91 106 Calcium 7.8 L 7.7 L Liver Function 10/17/24 10/18/24 Range/Units 07:56 04:45 Total Bilirubin 0.5 0.3 (0.2-1.3) mg/dL AST 31 30 (17-59) U/L ALT 31 29 (6-50) U/L Alkaline Phosphatase 127 H 156 H (38-126) U/L Albumin 2.9 L 2.8 L (3.5-5.1) g/dL
[2024-10-18] MEDS: PANTOPRAZOLE 40 MG TABLET PO (08:49)
[2024-10-18] MEDS: VITAMIN B CMPLX/VIT C/FOLIC AC 1 CAPSULE 1 CAP PO (08:49)
[2024-10-18] MEDS: AMIODARONE HCL 200 MG TABLET 400 MG BY MOUTH (08:49)
[2024-10-18] MEDS: FERROUS SULFATE 325 MG TABLET DR BY MOUTH (08:49)
[2024-10-18] MEDS: calcitrioL 0.25 MCG CAPSULE PO (08:50)
[2024-10-18] MEDS: METOPROLOL TARTRATE 25 MG TABLET PO (08:50)
[2024-10-18] MEDS: ASPIRIN 81 MG ENTERIC TABLET PO (08:50)
[2024-10-18] MEDS: FUROSEMIDE 40 MG TABLET PO ×2 (08:50→17:28)
[2024-10-18 09:56] LABS: Folic Acid 18.3 ng/mL (2.76->20)
--- NOTE | 2024-10-18 11:25 | P.PNNP_ITS ---
Progress Note: A&P Assessment and Plan (1) End stage renal disease: Code(s): N18.6 - End stage renal disease Status: Chronic Assessment and Plan: * HD tomorrow * continue T/T/S outpatient dialysis schedule while hospitalized * follow electrolytes, volume status, and clearance (2) Anemia: Qualifiers: Anemia type: unspecified type Qualified Code(s): D64.9 - Anemia, unspecified Code(s): D64.9 - Anemia, unspecified Status: Acute Assessment and Plan: * chronic issue/problems for the last several months * was getting IV iron and GILBERT as an outpatient even prior to dialysis initiation * s/p recent EGD/colonoscopy at [facility] a few months ago (reportedly negative findings) * GI recommendations noted: * outpatient capsule endoscopy per PCP * PRBC transfusion per protocol * follow trend of H/H * Hem/Onc consulted (3) Diastolic heart failure: Code(s): I50.30 - Unspecified diastolic (congestive) heart failure Status: Chronic Assessment and Plan: * appears compensated at this time * fluid removal with dialysis to maintain euvolemia * still makes urine - on oral diuretics (4) Atrial fibrillation: Code(s): I48.91 - Unspecified atrial fibrillation Status: Acute Assessment and Plan: * rate control strategy * on amiodarone and metoprolol * no anticoagulation (due to #2?) (5) Hypertension: Code(s): I10 - Essential (primary) hypertension Status: Chronic Assessment and Plan: * well controlled * follow trend of hemodynamics (6) Diabetes: Code(s): E11.9 - Type 2 diabetes mellitus without complications Status: Chronic Assessment and Plan: * diet controlled(?) * glycemic control per hospitalist Will continue to follow. L Subjective Date/time seen: 10/18/24 11:25 Interval history: Folow-up for end stage renal disease on hemodialysis. Chart reviewed -- assuming care from Dr. Gimenez; tolerated PRBC transfusion on admission but H/H low again as noted by AM labs so another PRBC transfusion today; despite this, he otherwise feels asymptomatic; daughter at bedside and we discussed the situation; Exam 2 Narrative: General: elderly but WD/WN male in NAD Heart: normal S1 and S2; no rub Lungs: decreased on left side Abdomen: soft, nontender, nondistended, positive bowel sounds Extremities: no cyanosis or clubbing; no edema Skin: warm and dry Objective Data Vital Signs Vital Signs: Vital Signs Temp Pulse Resp BP Pulse Ox O2 Del Method FiO2 10/18/24 09:05 99.5 F 81 16 142/42 H 97 10/18/24 09:00 Room Air 10/18/24 08:50 86 10/18/24 08:49 86 10/18/24 08:05 99.1 F 86 16 151/57 H 97 10/18/24 07:05 99.8 F H 83 16 141/50 H 97 10/18/24 06:05 97.9 F 81 16 142/50 H 96 10/18/24 05:49 98.3 F 81 16 138/52 L 95 10/18/24 03:10 97.4 F L 82 18 140/50 L 95 10/17/24 21:24 98.1 F 77 18 134/47 L 94 10/17/24 20:52 75 20 95 Room Air 21 10/17/24 20:00 Room Air 10/17/24 14:00 98.5 F 65 19 115/58 L 94 Intake/Output Intake/Output: Intake & Output 10/15/24 10/16/24 10/17/24 10/18/24 23:59 23:59 23:59 23:59 Intake Total 068 785 1907 Balance 154 025 9562 Meds/Results Medications: Active Medications Generic Name Dose Route Start Last Admin Trade Name Freq PRN Reason Stop Dose Admin Acetaminophen 650 mg 10/16/24 17:22 Acetaminophen 325 Mg Tablet PO Q4H PRN Mild Pain (1-3) or Fever Allopurinol 100 mg 10/19/24 18:00 Allopurinol 100 Mg Tablet BY MOUTH [email or web address] [facility] Amiodarone HCl 400 mg 10/17/24 08:00 10/18/24 08:49 Amiodarone Hcl 200 Mg Tablet BY MOUTH 400 mg DAILY@0800 [facility] Administration Aspirin 81 mg 10/17/24 09:00 10/18/24 08:50 Aspirin 81 Mg Enteric Tablet PO 81 mg QAM [facility] Administration Atorvastatin Calcium 80 mg 10/17/24 18:00 10/17/24 17:42 Atorvastatin 40 Mg Tablet PO 80 mg QPM [facility] Administration Calcitriol 0.25 mcg 10/17/24 09:00 10/18/24 08:50 Calcitriol 0.25 Mcg Capsule PO 0.25 mcg DAILY NICOLE Administration Doxazosin Mesylate 4 mg 10/17/24 18:00 10/17/24 17:42 Doxazosin Mesylate 4 Mg Tablet PO 4 mg QPM NICOLE Administration Ferrous Sulfate 325 mg 10/17/24 09:00 10/18/24 08:49 Ferrous Sulfate [address] BY MOUTH 325 mg DAILY NICOLE Administration Furosemide 40 mg 10/17/24 09:00 10/18/24 08:50 Furosemide 40 Mg Tablet PO 40 mg BID [facility] Administration Sodium Chloride 250 mls @ 30 mls/hr 10/18/24 05:26 10/18/24 05:50 Normal Saline Iv IV CONT 10/18/24 13:45 0 mls/hr .Q8H20M STA Infusion Metoprolol Tartrate 25 mg 10/17/24 09:00 10/18/24 08:50 Metoprolol Tartrate 25 Mg Tablet PO 25 mg DAILY [facility] Administration Ondansetron HCl 4 mg 10/16/24 17:22 Ondansetron Inj 4 Mg/2 Ml Vial IV PUSH Q4H PRN Nausea Pantoprazole Sodium 40 mg 10/17/24 09:00 10/18/24 08:49 Pantoprazole 40 Mg Tablet PO 40 mg QAM [facility] Administration Vitamin B Complex/Folic Acid 1 cap 10/17/24 09:00 10/18/24 08:49 Vitamin B Cmplx/Vit C/Folic Ac 1 Capsule PO 1 cap QAM [facility] Administration Labs Labs: Laboratory Tests 10/18/24 04:45 10/18/24 04:45 Calcium 7.7 L Phosphorus 5.0 H Magnesium 2.3 Total Bilirubin 0.3 AST 30 ALT 29 Alkaline Phosphatase 156 H Total Protein 5.0 L Albumin 2.8 L Vitamin B12 889.0 Folate 18.3
--- NOTE | 2024-10-18 11:37 | P.PNIM_ITS ---
Progress Note: A&P Assessment and Plan (1) Acute on chronic anemia: Code(s): D64.9 - Anemia, unspecified Status: Acute Assessment and Plan: s/p 2 units Hb 6.7 today Transfuse for hemoglobin less than 7 or symptomatic Gi evaluated and recommended Onoclogy eval, no indication for endoscopic intervention Oncology consulted (2) ESRD on dialysis: Code(s): N18.6 - End stage renal disease; Z99.2 - Dependence on renal dialysis Status: Acute Assessment and Plan: Dialysis Friday Continue home medications Nephrology following (3) Diabetes: Code(s): E11.9 - Type 2 diabetes mellitus without complications Status: Chronic Assessment and Plan: Not On medication home Managed by diet (4) Gout: Code(s): M10.9 - Gout, unspecified Status: Acute Assessment and Plan: Continue home medication (5) Hyperlipidemia: Code(s): E78.5 - Hyperlipidemia, unspecified Status: Acute Assessment and Plan: Continue home medication (6) Atrial fibrillation: Code(s): I48.91 - Unspecified atrial fibrillation Status: Acute Assessment and Plan: Continue home medication Plan DVT prophylaxis on SCDs, no AC due to possibel GI bleed Awaiting Hematology consult Subjective Date/time seen: 10/18/24 11:37 Interval history: COmfortable at bedside patient requesting discharge that he follows up with GI outaptient and has follow up scheduled for November however because hb is tethering on 7.2 after 2 units will monitor one more day GI consulted however Review of Systems Review of Systems: 12 systems were reviewed and are negativ e except for as per HPI. Exam Narrative: General: well appearing, appears stated age. HEENT: normocephalic, atraumatic. Mucous membranes moist. EOMI, PERRLA, bilateral sclera anicteric, no conjunctival injection. Neck supple without JVD, lymphadenopathy, or bruit. Respiratory: clear to ascultation bilaterally. No rales/rhonic/wheezes. Cardiovascular: Regular rate and rhythm, normal S1-S2 upon ascultation. No murmurs, rubs, or clicks. PMI is nondisplaced, capillary refill less than [address] Left AV fistula positive bruit and thrill Abdomen: Soft, round, no pulsatile masses, nondistended and nontender. No rebound, no guarding. No CVA tenderness, no hepatosplenomegaly. Bowel sounds present to all four quadrants. No high pitch or tinkling sounds, resonant to percussion. Extremities: No cyanosis, clubbing, or edema present. Pulses are palpable 2/2. Active ROM to all four extremities. Neuro: Alert and orientated x 4. PERRLA. Cranial nerves 2-12 intact without focal deficit. Skin: Warm, dry, and intact, without rash, erythema, or lesion. Psych: pleasant, cooperative, normal speech, normal affect, no hallucinations, n o dysarthia Objective Data Vital Signs Vital Signs: Vital Signs - 24 hr 10/17/24 14:00 10/17/24 20:00 10/17/24 20:52 Temperature 98.5 F Pulse Rate 65 75 Respiratory Rate 19 20 Blood Pressure 115/58 L Pulse Oximetry 94 95 Oxygen Delivery Room Air Room Air Fraction of Inspired Oxygen 21 10/17/24 21:24 10/18/24 03:10 10/18/24 05:49 Temperature 98.1 F 97.4 F L 98.3 F Pulse Rate 77 82 81 Respiratory Rate 18 18 16 Blood Pressure 134/47 L 140/50 L 138/52 L Pulse Oximetry 94 95 95 Oxygen Delivery Fraction of Inspired Oxygen 10/18/24 06:05 10/18/24 07:05 10/18/24 08:05 Temperature 97.9 F 99.8 F H 99.1 F Pulse Rate 81 83 86 Respiratory Rate 16 16 16 Blood Pressure 142/50 H 141/50 H 151/57 H Pulse Oximetry 96 97 97 Oxygen Delivery Fraction of Inspired Oxygen 10/18/24 08:49 10/18/24 08:50 10/18/24 09:00 Temperature Pulse Rate 86 86 Respiratory Rate Blood Pressure Pulse Oximetry Oxygen Delivery Room Air Fraction of Inspired Oxygen 10/18/24 09:05 Temperature 99.5 F Pulse Rate 81 Respiratory Rate 16 Blood Pressure 142/42 H Pulse Oximetry 97 Oxygen Delivery Fraction of Inspired Oxygen Intake/Output Intake/Output: Intake & Output 10/15/24 10/16/24 10/17/24 10/18/24 23:59 23:59 23:59 23:59 Intake Total 700 920 960 Balance 700 920 960 Meds/Results Medications: Active Medications Generic Name Dose Route Start Last Admin Trade Name Freq PRN Reason Stop Dose Admin Acetaminophen 650 mg 10/16/24 17:22 Acetaminophen 325 Mg Tablet PO Q4H PRN Mild Pain (1-3) or Fever Allopurinol 100 mg 10/19/24 18:00 Allopurinol 100 Mg Tablet BY MOUTH [email or web address] [facility] Amiodarone HCl 400 mg 10/17/24 08:00 10/18/24 08:49 Amiodarone Hcl 200 Mg Tablet BY MOUTH 400 mg DAILY@0800 [facility] Administration Aspirin 81 mg 10/17/24 09:00 10/18/24 08:50 Aspirin 81 Mg Enteric Tablet PO 81 mg QAM [facility] Administration Atorvastatin Calcium 80 mg 10/17/24 18:00 10/17/24 17:42 Atorvastatin 40 Mg Tablet PO 80 mg QPM [facility] Administration Calcitriol 0.25 mcg 10/17/24 09:00 10/18/24 08:50 Calcitriol 0.25 Mcg Capsule PO 0.25 mcg DAILY NICOLE Administration Doxazosin Mesylate 4 mg 10/17/24 18:00 10/17/24 17:42 Doxazosin Mesylate 4 Mg Tablet PO 4 mg QPM NICOLE Administration Ferrous Sulfate 325 mg 10/17/24 09:00 10/18/24 08:49 Ferrous Sulfate [address] BY MOUTH 325 mg DAILY NICOLE Administration Furosemide 40 mg 10/17/24 09:00 10/18/24 08:50 Furosemide 40 Mg Tablet PO 40 mg BID NICOLE Administration Sodium Chloride 250 mls @ 30 mls/hr 10/18/24 05:26 10/18/24 05:50 Normal Saline Iv IV CONT 10/18/24 13:45 0 mls/hr .Q8H20M STA Infusion Metoprolol Tartrate 25 mg 10/17/24 09:00 10/18/24 08:50 Metoprolol Tartrate 25 Mg Tablet PO 25 mg DAILY NICOLE Administration Ondansetron HCl 4 mg 10/16/24 17:22 Ondansetron Inj 4 Mg/2 Ml Vial IV PUSH Q4H PRN Nausea Pantoprazole Sodium 40 mg 10/17/24 09:00 10/18/24 08:49 Pantoprazole 40 Mg Tablet PO 40 mg QAM NICOLE Administration Vitamin B Complex/Folic Acid 1 cap 10/17/24 09:00 10/18/24 08:49 Vitamin B Cmplx/Vit C/Folic Ac 1 Capsule PO 1 cap QAM NICOLE Administration Labs Labs: Laboratory Results - last 24 hr 10/16/24 10/17/24 10/17/24 15:35 07:52 11:41 WBC RBC Hgb Hct MCV MCH MCHC RDW Plt Count MPV Immature Gran % (Auto) Neut % (Auto) Lymph % (Auto) [place] % (Auto) Eos % (Auto) Baso % (Auto) Lymph # (Auto) [place] # (Auto) Eos # (Auto) Baso # (Auto) Abs Immat Gran (auto) Absolute Neuts (auto) Absolute Nucleated RBC Nucleated RBC % ESR 95 H Sodium Potassium Chloride Carbon Dioxide Anion Gap BUN Creatinine Estim Creat Clear Calc Estimated GFR Glucose Calcium Phosphorus Magnesium % Saturation 36 Ferritin 385.00 H Total Bilirubin AST ALT Alkaline Phosphatase Total Protein Albumin Vitamin B12 Folate Hep Bs Antigen Hep Bs Antibody Blood Type O Positive Antibody Screen Negative RAFAEL, IgG Interpret TNP RAFAEL, Poly Interpret Negative RAFAEL, Complement Interp TNP Indirect Antiglob Test Negative Crossmatch See Detail 10/18/24 04:45 WBC 8.3 RBC 2.11 L Hgb 6.7 L* Hct 22.1 L MCV 104.7 H MCH 31.8 MCHC 30.3 L RDW 18.8 H Plt Count 256 MPV 8.6 Immature Gran % (Auto) 0.4 Neut % (Auto) 76.6 H Lymph % (Auto) 10.6 L [place] % (Auto) 7.1 Eos % (Auto) 4.6 H Baso % (Auto) 0.7 Lymph # (Auto) 0.88 L [place] # (Auto) 0.6 Eos # (Auto) 0.4 H Baso # (Auto) 0.1 Abs Immat Gran (auto) 0.03 Absolute Neuts (auto) 6.3 Absolute Nucleated RBC 0.000 Nucleated RBC % 0.0 ESR Sodium 137 Potassium 4.0 Chloride 100 Carbon Dioxide 30 Anion Gap 7 BUN 81 H D Creatinine 5.06 H Estim Creat Clear Calc 12 Estimated GFR 11 L Glucose 106 Calcium 7.7 L Phosphorus 5.0 H Magnesium 2.3 % Saturation Ferritin Total Bilirubin 0.3 AST 30 ALT 29 Alkaline Phosphatase 156 H Total Protein 5.0 L Albumin 2.8 L Vitamin B12 889.0 Folate 18.3 Hep Bs Antigen Negative Hep Bs Antibody Negative Blood Type Antibody Screen RAFAEL, IgG Interpret RAFAEL, Poly Interpret RAFAEL, Complement Interp Indirect Antiglob Test Crossmatch Quality VTE Prophylaxis VTE prophylaxis: mechanical ordered
[2024-10-18] MEDS: DOXAZOSIN MESYLATE 4 MG TABLET PO (17:28)
[2024-10-18] MEDS: ATORVASTATIN 40 MG TABLET 80 MG PO (17:29)
--- NOTE | 2024-10-18 18:22 | P.CONONC_ITS ---
Assessment and Plan Assessment and plan (1) Anemia: Qualifiers: Anemia type: unspecified type Qualified Code(s): D64.9 - Anemia, unspecified Code(s): D64.9 - Anemia, unspecified Status: Acute Assessment and Plan: Macrocytic anemia. Patient is a pleasant 74-year-old male with history of end- stage renal disease and has been on hemodialysis since July of 2024. He was admitted to the hospital with hemoglobin of 5.2. He denies any bleeding including melena hematochezia. According to the daughter patient had colonoscopy done to 3 years ago and was unremarkable and never had EGD done in the past. He has been complaining of tiredness and fatigue. Labs showed elevated MCV but normal platelet and WBC count. B12 and LDH was normal. Direct Priya test was negative. Iron studies was also normal but patient had received blood transfusions. I will order soluble transferrin receptor. I will check methylmalonic acid level, serum protein electrophoresis and erythropoietin level. Do not see need for bone marrow biopsy testing at this time. I am assuming the patient is getting Epogen with hemodialysis. We will check erythropoietin level. He will follow-up in the office. HPI Data of Consult Date/Time: 10/18/24 18:22 Requesting Physician: Rox Chung MD Primary Care Provider: Chandler Geronimo, DO Consult Narrative Narrative: Bulmaro Gamez is a 74 year old male with diagnosis of chronic kidney disease in 2020 and end-stage renal disease started on hemodialysis in July of 2024. Patient also have a history of congestive heart failure, hyperlipidemia, diabetes, atrial fibrillation and hypertension. He came into the hospital with complain of tiredness and fatigue and found to have anemia. Hemoglobin was 5.2. He has received 2 units of packed red blood cells. Patient also received blood transfusion in July and June of 2024. He denies any bleeding including melena hematochezia. Patient had colonoscopy done 3 years ago came back normal. He never had EGD done in the past. History was obtained with discussion with the daughter. Per GI consultation patient had unremarkable EGD and colonoscopy few months ago when admitted to [facility]. Labs showed hemoglobin of 6.7 up from 5.2 previously. White blood cell and platelet counts were normal. Iron studies showed normal iron of 77 and iron saturation of 36% with elevated ferritin. LDH was normal. Vitamin B12 was also normal. Review of Systems 2 Review of Systems: Twelve point review of system was reviewed and as per [facility] Past Medical History Medical History Diastolic congestive heart failure ANCA-associated vasculitis Hyperlipidemia Hyperuricemia Diabetes Hypertension Atrial fibrillation Pleural effusion Hypotension Acute on chronic anemia Pericardial effusion History of end stage renal disease Anemia Surgical History Surgical History History of back surgery H/O bilateral cataract extraction Family History Family History Father Myocardial infarct Sibling Myocardial infarct Mother Dementia Social History Social History Smoking status: Former smoker Additional smoking assessment comments: quit many years ago Alcohol intake: never Substance use: never Do You Feel Safe in your Home?: Yes Lack of Transportation: No Lack of Food: Never True Current Housing: I Have Housing Concerned About Future Housing: No Difficulty Paying Gas/Electric Bills: No Difficulty Paying for Meds: No Currently Unemployed: No Education: High School Diploma/GED Difficulty w/ Childcare or Family Care: No Spiritual care concerns: No Meds Home Medications and Allergies Home Medications ?Medication ?Instructions ?Recorded ?Confirmed ?Type allopurinol 100 mg tablet See Rx Instructions .Route .COMPLEX 09/06/24 10/16/24 History amiodarone 400 mg tablet 200 mg PO DAILY 09/06/24 10/16/24 History calcitriol 0.25 mcg capsule 0.25 mcg PO DAILY 09/06/24 10/16/24 History doxazosin 4 mg tablet (Cardura) 4 mg PO QPM 09/06/24 10/16/24 History ferrous sulfate 325 mg (65 mg 325 mg PO DAILY 09/06/24 10/16/24 History iron) tablet (iron) furosemide 40 mg tablet 120 mg PO BID 09/06/24 10/16/24 History metoprolol tartrate 25 mg tablet 25 mg PO DAILY 09/06/24 10/16/24 History pantoprazole 40 mg tablet,delayed 40 mg PO QAM 09/06/24 10/16/24 History release (Protonix) vitamin B complex-vitamin C-folic 1 tablet PO DAILY 09/06/24 10/16/24 History acid 800 mcg chewable tablet (Dialyvite 800) aspirin 81 mg tablet,delayed 81 mg PO QAM #30 tabs 09/11/24 10/16/24 Rx release atorvastatin 40 mg tablet 80 mg (2 x 40 mg) PO EVENING #30 09/11/24 10/16/24 Rx tabs Allergies Allergy/AdvReac Type Severity Reaction Status Date / Time No Known Allergies Allergy Unverified 09/06/24 13:40 Vital Signs Vital Signs - 24 hr 10/17/24 20:00 10/17/24 20:52 10/17/24 21:24 Temperature 36.7 C Pulse Rate 75 77 Respiratory Rate 20 18 Blood Pressure 134/47 L Pulse Oximetry 95 94 Oxygen Delivery Room Air Room Air Fraction of Inspired Oxygen 21 10/18/24 03:10 10/18/24 05:49 10/18/24 06:05 Temperature 36.3 C L 36.8 C 36.6 C Pulse Rate 82 81 81 Respiratory Rate 18 16 16 Blood Pressure 140/50 L 138/52 L 142/50 H Pulse Oximetry 95 95 96 Oxygen Delivery Fraction of Inspired Oxygen 10/18/24 07:05 10/18/24 08:05 10/18/24 08:49 Temperature 37.7 C H 37.3 C Pulse Rate 83 86 86 Respiratory Rate 16 16 Blood Pressure 141/50 H 151/57 H Pulse Oximetry 97 97 Oxygen Delivery Fraction of Inspired Oxygen 10/18/24 08:50 10/18/24 09:00 10/18/24 09:05 Temperature 37.5 C Pulse Rate 86 81 Respiratory Rate 16 Blood Pressure 142/42 H Pulse Oximetry 97 Oxygen Delivery Room Air Fraction of Inspired Oxygen 10/18/24 14:00 Temperature 37.2 C Pulse Rate 68 Respiratory Rate 16 Blood Pressure 129/50 L Pulse Oximetry 96 Oxygen Delivery Fraction of Inspired Oxygen Exam 2 Narrative: Lungs are clear to auscultation bilaterally Cardiovascular regular rate rhythm no murmurs Abdomen soft nontender nondistended Extremities no edema Results Labs 10/18/24 04:45 10/18/24 04:45 Labs: Short CBC 10/18/24 Range/Units 04:45 WBC 8.3 (4.5-10.0) K/mm3 Hgb 6.7 L* (14.0-18.0) g/dL Hct 22.1 L (42.0-52.0) % Plt Count 256 (150-375) k/mm3 BMP 10/18/24 04:45 Sodium 137 Potassium 4.0 Chloride 100 Carbon Dioxide 30 BUN 81 H D Creatinine 5.06 H Glucose 106 Calcium 7.7 L Liver Function 10/18/24 Range/Units 04:45 Total Bilirubin 0.3 (0.2-1.3) mg/dL AST 30 (17-59) U/L ALT 29 (6-50) U/L Alkaline Phosphatase 156 H (38-126) U/L Albumin 2.8 L (3.5-5.1) g/dL
[2024-10-19] VITALS (24 sets, daily range): BP systolic 130–163; BP diastolic 46–75; PULSE 66–82; RESP 17–19; TEMP 36.6–37; O2SAT 94–98
[2024-10-19 05:22] LABS: Basophils Absolute Auto 0.1 K/mm3 (0.0-0.1); Basophils Percent Auto 0.7 % (0.2-1.2); Eosinophils Absolute Auto 0.4 K/mm3 (0-0.3); Eosinophils Percent Auto 4.4 % (0-4.4); Hematocrit 24.9 % (42.0-52.0); Hemoglobin 7.8 g/dL (14.0-18.0); Immature Granulocyte Absolute 0.05 K/mm3 (0.00-0.031); Immature Granulocyte Percent A 0.6 % (0-0.5); Lymphocytes Absolute Auto 0.91 K/mm3 (0.9-3.2); Lymphocytes Percent Auto 10.5 % (18.3-44.2); Mean Corpuscular HGB Conc 31.3 g/dl (32-36); Mean Corpuscular Hemoglobin 31.7 pg (26-34); Mean Corpuscular Volume 101.2 fl (80-100); Mean Platelet Volume 8.6 fl (7.4-10.4); Monocytes Absolute Auto 0.5 K/mm3 (0.1-0.6); Monocytes Percent Auto 6.2 % (2.6-8.5); Neutrophils Absolute Auto 6.7 K/mm3 (1.3-6.7); Neutrophils Percent Auto 77.6 % (45.5-73.1); Platelet Count Result 264 k/mm3 (150-375); Red Blood Count 2.46 M/mm3 (4.6-6.20); Red Cell Distribution Width 18.9 % (11.5-14.5); White Blood Count 8.7 K/mm3 (4.5-10.0)
[2024-10-19 05:42] LABS: Alanine Aminotransferase 27 U/L (6-50); Albumin Level 2.9 g/dL (3.5-5.1); Alkaline Phosphatase 145 U/L (38-126); Anion Gap 8 mmol/L (4-12); Aspartate Amino Transferase 25 U/L (17-59); Bilirubin,Total 0.4 mg/dL (0.2-1.3); Blood Urea Nitrogen 92 mg/dL (9-20); Carbon Dioxide 27 mmol/L (22-30); Chloride 101 mmol/L (98-107); Estimated CRCL calculation 11 ml/min; Estimated Glomerular Filt Rate 10; Glucose 98 mg/dL (65-110); Magnesium 2.4 mg/dL (1.6-2.3); Potassium 4.1 mmol/L (3.4-5.0); Sodium 136 mmol/L (137-145)
[2024-10-19] MEDS: FERROUS SULFATE 325 MG TABLET DR BY MOUTH (08:14)
[2024-10-19] MEDS: VITAMIN B CMPLX/VIT C/FOLIC AC 1 CAPSULE 1 CAP PO (08:14)
[2024-10-19] MEDS: FUROSEMIDE 40 MG TABLET PO ×2 (08:14→17:00)
[2024-10-19] MEDS: ASPIRIN 81 MG ENTERIC TABLET PO (08:14)
[2024-10-19] MEDS: PANTOPRAZOLE 40 MG TABLET PO (08:14)
[2024-10-19] MEDS: calcitrioL 0.25 MCG CAPSULE PO (08:16)
--- NOTE | 2024-10-19 09:22 | PC.NURSE ---
To dialysis via bed.
--- NOTE | 2024-10-19 09:25 | PC.NURSE ---
To dialysis via bed.
--- NOTE | 2024-10-19 10:30 | PM.PNNEP ---
Progress Note: A&P Assessment and Plan (1) End stage renal disease: Code(s): N18.6 - End stage renal disease Status: Chronic Assessment and Plan: HD today continue T/T/S outpatient dialysis schedule while hospitalized follow electrolytes, volume status, and clearance (2) Anemia: Qualifiers: Anemia type: unspecified type Qualified Code(s): D64.9 - Anemia, unspecified Code(s): D64.9 - Anemia, unspecified Status: Acute Assessment and Plan: chronic issue/problems for the last several months was getting IV iron and GILBERT as an outpatient even prior to dialysis initiation s/p recent EGD/colonoscopy at [facility] a few months ago (reportedly negative findings) GI recommendations noted: consider outpatient capsule endoscopy per PCP PRBC transfusion per protocol follow trend of H/H Hem/Onc recommendations reviewed further testing needed??? (3) Diastolic heart failure: Code(s): I50.30 - Unspecified diastolic (congestive) heart failure Status: Chronic Assessment and Plan: appears compensated at this time fluid removal with dialysis to maintain euvolemia still makes urine - on oral diuretics (4) Atrial fibrillation: Code(s): I48.91 - Unspecified atrial fibrillation Status: Acute Assessment and Plan: rate control strategy on amiodarone and metoprolol no anticoagulation (due to #2?) (5) Hypertension: Code(s): I10 - Essential (primary) hypertension Status: Chronic Assessment and Plan: well controlled follow trend of hemodynamics (6) Diabetes: Code(s): E11.9 - Type 2 diabetes mellitus without complications Status: Chronic Assessment and Plan: diet controlled(?) glycemic control per hospitalist Will continue to follow. Subjective Date/time seen: 10/19/24 10:30 Interval history: Folow-up for end stage renal disease on hemodialysis. Tolerating dialysis treatment at the time of my visit (seen on HD at 10:20AM); no apparent distress voiced when seen; tolerated PRBC transfusion yesterday with appropriate incrementation of H/H; asking me about discharge. Exam Narrative: General: elderly but WD/WN male in NAD Heart: normal S1 and S2; no rub Lungs: c;lear anteriorly Abdomen: soft, nontender, nondistended, positive bowel sounds Extremities: no cyanosis or clubbing; no edema Skin: warm and intact Objective Data Vital Signs Vital Signs: Vital Signs Temp Pulse Resp BP Pulse Ox O2 Del Method 10/19/24 08:16 18 94 Room Air 10/19/24 03:17 97.9 F 73 18 141/48 H 94 10/18/24 23:40 95 Room Air 10/18/24 21:16 98.1 F 73 18 128/48 L 95 10/18/24 20:00 Room Air 10/18/24 14:00 99 F 68 16 129/50 L 96 Intake/Output Intake/Output: Intake & Output 10/16/24 10/17/24 10/18/24 10/19/24 23:59 23:59 23:59 23:59 Intake Total 135 390 7175 630 Balance 395 925 1090 630 Meds/Results Medications: Active Medications Generic Name Dose Route Start Last Admin Trade Name Freq PRN Reason Stop Dose Admin Acetaminophen 650 mg 10/16/24 17:22 Acetaminophen 325 Mg Tablet PO Q4H PRN Mild Pain (1-3) or Fever Allopurinol 100 mg 10/19/24 18:00 Allopurinol 100 Mg Tablet BY MOUTH TuThSa@1800 [facility] Amiodarone HCl 400 mg 10/17/24 08:00 10/18/24 08:49 Amiodarone Hcl 200 Mg Tablet BY MOUTH 400 mg DAILY@0800 [facility] Administration Aspirin 81 mg 10/17/24 09:00 10/19/24 08:14 Aspirin 81 Mg Enteric Tablet PO 81 mg QAM [facility] Administration Atorvastatin Calcium 80 mg 10/17/24 18:00 10/18/24 17:29 Atorvastatin 40 Mg Tablet PO 80 mg QPM [facility] Administration Calcitriol 0.25 mcg 10/17/24 09:00 10/19/24 08:16 Calcitriol 0.25 Mcg Capsule PO 0.25 mcg DAILY [facility] Administration Doxazosin Mesylate 4 mg 10/17/24 18:00 10/18/24 17:28 Doxazosin Mesylate 4 Mg Tablet PO 4 mg QPM [facility] Administration Epoetin Elliot-epbx 20,000 units 10/19/24 18:00 10/19/24 10:44 Epoetin Elliot-Epbx 20,000 Units/Ml Vial IV PUSH 10/19/24 18:01 20,000 units ONCE ONE Administration Ferrous Sulfate 325 mg 10/17/24 09:00 10/19/24 08:14 Ferrous Sulfate [address] BY MOUTH 325 mg DAILY NICOLE Administration Furosemide 40 mg 10/17/24 09:00 10/19/24 08:14 Furosemide 40 Mg Tablet PO 40 mg BID [facility] Administration Albumin Human 50 mls @ 999 mls/hr 10/18/24 20:58 Albutein IVPB 11/17/24 20:57 Q10M PRN HYPOTENSION Metoprolol Tartrate 25 mg 10/17/24 09:00 10/18/24 08:50 Metoprolol Tartrate 25 Mg Tablet PO 25 mg DAILY NICOLE Administration Ondansetron HCl 4 mg 10/16/24 17:22 Ondansetron Inj 4 Mg/2 Ml Vial IV PUSH Q4H PRN Nausea Pantoprazole Sodium 40 mg 10/17/24 09:00 10/19/24 08:14 Pantoprazole 40 Mg Tablet PO 40 mg QAM [facility] Administration Vitamin B Complex/Folic Acid 1 cap 10/17/24 09:00 10/19/24 08:14 Vitamin B Cmplx/Vit C/Folic Ac 1 Capsule PO 1 cap QAM [facility] Administration Labs Labs: Laboratory Tests 10/19/24 04:58 10/19/24 04:58 Calcium 8.0 L Magnesium 2.4 H Total Bilirubin 0.4 AST 25 ALT 27 Alkaline Phosphatase 145 H Total Protein 5.0 L Albumin 2.9 L
--- NOTE | 2024-10-19 10:30 | P.PNNP_ITS ---
Progress Note: A&P Assessment and Plan (1) End stage renal disease: Code(s): N18.6 - End stage renal disease Status: Chronic Assessment and Plan: * HD today * continue T/T/S outpatient dialysis schedule while hospitalized * follow electrolytes, volume status, and clearance (2) Anemia: Qualifiers: Anemia type: unspecified type Qualified Code(s): D64.9 - Anemia, unspecified Code(s): D64.9 - Anemia, unspecified Status: Acute Assessment and Plan: * chronic issue/problems for the last several months * was getting IV iron and GILBERT as an outpatient even prior to dialysis initiation * s/p recent EGD/colonoscopy at [facility] a few months ago (reportedly negative findings) * GI recommendations noted: * consider outpatient capsule endoscopy per PCP * PRBC transfusion per protocol * follow trend of H/H * Hem/Onc recommendations reviewed * further testing needed??? (3) Diastolic heart failure: Code(s): I50.30 - Unspecified diastolic (congestive) heart failure Status: Chronic Assessment and Plan: * appears compensated at this time * fluid removal with dialysis to maintain euvolemia * still makes urine - on oral diuretics (4) Atrial fibrillation: Code(s): I48.91 - Unspecified atrial fibrillation Status: Acute Assessment and Plan: * rate control strategy * on amiodarone and metoprolol * no anticoagulation (due to #2?) (5) Hypertension: Code(s): I10 - Essential (primary) hypertension Status: Chronic Assessment and Plan: * well controlled * follow trend of hemodynamics (6) Diabetes: Code(s): E11.9 - Type 2 diabetes mellitus without complications Status: Chronic Assessment and Plan: * diet controlled(?) * glycemic control per hospitalist Will continue to follow. L Subjective Date/time seen: 10/19/24 10:30 Interval history: Folow-up for end stage renal disease on hemodialysis. Tolerating dialysis treatment at the time of my visit (seen on HD at 10:20AM); no apparent distress voiced when seen; tolerated PRBC transfusion yesterday with appropriate incrementation of H/H; asking me about discharge. Exam 2 Narrative: General: elderly but WD/WN male in NAD Heart: normal S1 and S2; no rub Lungs: c;lear anteriorly Abdomen: soft, nontender, nondistended, positive bowel sounds Extremities: no cyanosis or clubbing; no edema Skin: warm and intact Objective Data Vital Signs Vital Signs: Vital Signs Temp Pulse Resp BP Pulse Ox O2 Del Method 10/19/24 08:16 18 94 Room Air 10/19/24 03:17 97.9 F 73 18 141/48 H 94 10/18/24 23:40 95 Room Air 10/18/24 21:16 98.1 F 73 18 128/48 L 95 10/18/24 20:00 Room Air 10/18/24 14:00 99 F 68 16 129/50 L 96 Intake/Output Intake/Output: Intake & Output 10/16/24 10/17/24 10/18/24 10/19/24 23:59 23:59 23:59 23:59 Intake Total 438 309 4586 630 Balance 164 574 4060 630 Meds/Results Medications: Active Medications Generic Name Dose Route Start Last Admin Trade Name Freq PRN Reason Stop Dose Admin Acetaminophen 650 mg 10/16/24 17:22 Acetaminophen 325 Mg Tablet PO Q4H PRN Mild Pain (1-3) or Fever Allopurinol 100 mg 10/19/24 18:00 Allopurinol 100 Mg Tablet BY MOUTH TuThSa@1800 [facility] Amiodarone HCl 400 mg 10/17/24 08:00 10/18/24 08:49 Amiodarone Hcl 200 Mg Tablet BY MOUTH 400 mg DAILY@0800 [facility] Administration Aspirin 81 mg 10/17/24 09:00 10/19/24 08:14 Aspirin 81 Mg Enteric Tablet PO 81 mg QAM [facility] Administration Atorvastatin Calcium 80 mg 10/17/24 18:00 10/18/24 17:29 Atorvastatin 40 Mg Tablet PO 80 mg QPM [facility] Administration Calcitriol 0.25 mcg 10/17/24 09:00 10/19/24 08:16 Calcitriol 0.25 Mcg Capsule PO 0.25 mcg DAILY [facility] Administration Doxazosin Mesylate 4 mg 10/17/24 18:00 10/18/24 17:28 Doxazosin Mesylate 4 Mg Tablet PO 4 mg QPM NICOLE Administration Epoetin Elliot-epbx 20,000 units 10/19/24 18:00 10/19/24 10:44 Epoetin Elliot-Epbx 20,000 Units/Ml Vial IV PUSH 10/19/24 18:01 20,000 units ONCE ONE Administration Ferrous Sulfate 325 mg 10/17/24 09:00 10/19/24 08:14 Ferrous Sulfate [address] BY MOUTH 325 mg DAILY [facility] Administration Furosemide 40 mg 10/17/24 09:00 10/19/24 08:14 Furosemide 40 Mg Tablet PO 40 mg BID [facility] Administration Albumin Human 50 mls @ 999 mls/hr 10/18/24 20:58 Albutein IVPB 11/17/24 20:57 Q10M PRN HYPOTENSION Metoprolol Tartrate 25 mg 10/17/24 09:00 10/18/24 08:50 Metoprolol Tartrate 25 Mg Tablet PO 25 mg DAILY [facility] Administration Ondansetron HCl 4 mg 10/16/24 17:22 Ondansetron Inj 4 Mg/2 Ml Vial IV PUSH Q4H PRN Nausea Pantoprazole Sodium 40 mg 10/17/24 09:00 10/19/24 08:14 Pantoprazole 40 Mg Tablet PO 40 mg QAM [facility] Administration Vitamin B Complex/Folic Acid 1 cap 10/17/24 09:00 10/19/24 08:14 Vitamin B Cmplx/Vit C/Folic Ac 1 Capsule PO 1 cap QAM [facility] Administration Labs Labs: Laboratory Tests 10/19/24 04:58 10/19/24 04:58 Calcium 8.0 L Magnesium 2.4 H Total Bilirubin 0.4 AST 25 ALT 27 Alkaline Phosphatase 145 H Total Protein 5.0 L Albumin 2.9 L
[2024-10-19] MEDS: EPOETIN ALFA-EPBX 20,000 UNITS/ML VIAL 20000 UNITS IV PUSH (10:44)
--- NOTE | 2024-10-19 14:05 | PC.NURSE ---
Returned from dialysis via bed.
[2024-10-19] MEDS: AMIODARONE HCL 200 MG TABLET 400 MG BY MOUTH (15:31)
[2024-10-19] MEDS: METOPROLOL TARTRATE 25 MG TABLET PO (15:31)
--- NOTE | 2024-10-19 16:03 | P.PNIM_ITS ---
Progress Note: A&P Assessment and Plan (1) Acute on chronic anemia: Code(s): D64.9 - Anemia, unspecified Status: Acute Assessment and Plan: s/p 2 units Hb 7.8 Transfuse for hemoglobin less than 7 or symptomatic Gi evaluated and recommended Onoclogy eval, no indication for endoscopic intervention Oncology consulted (2) ESRD on dialysis: Code(s): N18.6 - End stage renal disease; Z99.2 - Dependence on renal dialysis Status: Acute Assessment and Plan: Dialysis Friday Continue home medications Nephrology following (3) Diabetes: Code(s): E11.9 - Type 2 diabetes mellitus without complications Status: Chronic Assessment and Plan: Not On medication home Managed by diet (4) Gout: Code(s): M10.9 - Gout, unspecified Status: Acute Assessment and Plan: Continue home medication (5) Hyperlipidemia: Code(s): E78.5 - Hyperlipidemia, unspecified Status: Acute Assessment and Plan: Continue home medication (6) Atrial fibrillation: Code(s): I48.91 - Unspecified atrial fibrillation Status: Acute Assessment and Plan: Continue home medication Plan DVT prophylaxis on SCDs, no AC due to possibel GI bleed Awaiting Hematology consult Subjective Date/time seen: 10/19/24 16:03 Interval history: Patient was evaluated at the bedside. Had a long discussion with her daughter. Patient hemoglobin drops for unknown reason. I know the patient from previous hospitalization. Will do tagged RBC scan tomorrow. Review of Systems Review of Systems: 12 systems were reviewed and are negativ e except for as per HPI. Exam Narrative: General: well appearing, appears stated age. HEENT: normocephalic, atraumatic. Mucous membranes moist. EOMI, PERRLA, iraj ateral sclera anicteric, no conjunctival injection. Neck supple without JVD, lymphadenopathy, or bruit. Respiratory: clear to ascultation bilaterally. No rales/rhonic/wheezes. Cardiovascular: Regular rate and rhythm, normal S1-S2 upon ascultation. No murmurs, rubs, or clicks. PMI is nondisplaced, capillary refill less than 3 second. Left AV fistula positive bruit and thrill Abdomen: Soft, round, no pulsatile masses, nondistended and nontender. No rebound, no guarding. No CVA tenderness, no hepatosplenomegaly. Bowel sounds present to all four quadrants. No high pitch or tinkling sounds, resonant to percussion. Extremities: No cyanosis, clubbing, or edema present. Pulses are palpable 2/2. Active ROM to all four extremities. Neuro: Alert and orientated x 4. PERRLA. Cranial nerves 2-12 intact without focal deficit. Skin: Warm, dry, and intact, without rash, erythema, or lesion. Psych: pleasant, cooperative, normal speech, normal affect, no hallucinations, no dysarthia Objective Data Vital Signs Vital Signs: Vital Signs - 24 hr 10/18/24 20:00 10/18/24 21:16 10/18/24 23:40 Temperature 98.1 F Pulse Rate 73 Respiratory Rate 18 Blood Pressure 128/48 L Pulse Oximetry 95 95 Oxygen Delivery Room Air Room Air 10/19/24 03:17 10/19/24 08:16 10/19/24 09:31 Temperature 97.9 F 98.1 F Pulse Rate 73 82 Respiratory Rate 18 18 18 Blood Pressure 141/48 H 155/69 H Pulse Oximetry 94 94 Oxygen Delivery Room Air 10/19/24 09:45 10/19/24 10:00 10/19/24 10:15 Temperature Pulse Rate 78 80 78 Respiratory Rate Blood Pressure 150/68 H 146/64 H 130/64 Pulse Oximetry Oxygen Delivery 10/19/24 10:30 10/19/24 10:45 10/19/24 11:00 Temperature Pulse Rate 78 78 76 Respiratory Rate Blood Pressure 147/68 H 140/65 156/64 H Pulse Oximetry Oxygen Delivery 10/19/24 11:15 10/19/24 11:30 10/19/24 11:45 Temperature Pulse Rate 76 76 73 Respiratory Rate Blood Pressure 139/73 135/64 144/67 H Pulse Oximetry Oxygen Delivery 10/19/24 12:00 10/19/24 12:15 10/19/24 12:30 Temperature Pulse Rate 72 72 72 Respiratory Rate Blood Pressure 144/72 H 145/73 H 151/73 H Pulse Oximetry Oxygen Delivery 10/19/24 12:45 10/19/24 13:00 10/19/24 13:15 Temperature Pulse Rate 73 73 75 Respiratory Rate Blood Pressure 154/75 H 156/70 H 163/67 H Pulse Oximetry Oxygen Delivery 10/19/24 13:21 10/19/24 13:31 10/19/24 14:00 Temperature 98.4 F 98.2 F Pulse Rate 73 74 76 Respiratory Rate 18 19 Blood Pressure 159/72 H 160/75 H 147/46 H Pulse Oximetry 98 Oxygen Delivery 10/19/24 15:31 10/19/24 15:31 Temperature Pulse Rate 76 76 Respiratory Rate Blood Pressure Pulse Oximetry Oxygen Delivery Intake/Output Intake/Output: Intake & Output 10/16/24 10/17/24 10/18/24 10/19/24 23:59 23:59 23:59 23:59 Intake Total 661 246 2401 870 Output Total 3000 Balance 572 602 9292 -2130 Meds/Results Medications: Active Medications Generic Name Dose Route Start Last Admin Trade Name Freq PRN Reason Stop Dose Admin Acetaminophen 650 mg 10/16/24 17:22 Acetaminophen 325 Mg Tablet PO Q4H PRN Mild Pain (1-3) or Fever Allopurinol 100 mg 10/19/24 18:00 Allopurinol 100 Mg Tablet BY MOUTH TuThSa@1800 [facility] Amiodarone HCl 400 mg 10/17/24 08:00 10/19/24 15:31 Amiodarone Hcl 200 Mg Tablet BY MOUTH 400 mg DAILY@0800 [facility] Administration Aspirin 81 mg 10/17/24 09:00 10/19/24 08:14 Aspirin 81 Mg Enteric Tablet PO 81 mg QAM [facility]1983 Administration Atorvastatin Calcium 80 mg 10/17/24 18:00 10/18/24 17:29 Atorvastatin 40 Mg Tablet PO 80 mg QPM [facility] Administration Calcitriol 0.25 mcg 10/17/24 09:00 10/19/24 08:16 Calcitriol 0.25 Mcg Capsule PO 0.25 mcg DAILY [facility]1983 Administration Doxazosin Mesylate 4 mg 10/17/24 18:00 10/18/24 17:28 Doxazosin Mesylate 4 Mg Tablet PO 4 mg QPM [facility] Administration Epoetin Elliot-epbx 20,000 units 10/19/24 18:00 10/19/24 10:44 Epoetin Elliot-Epbx 20,000 Units/Ml Vial IV PUSH 10/19/24 18:01 20,000 units ONCE ONE Administration Ferrous Sulfate 325 mg 10/17/24 09:00 10/19/24 08:14 Ferrous Sulfate [address] BY MOUTH 325 mg DAILY [facility] Administration Furosemide 40 mg 10/17/24 09:00 10/19/24 08:14 Furosemide 40 Mg Tablet PO 40 mg BID [facility] Administration Albumin Human 50 mls @ 999 mls/hr 10/18/24 20:58 Albutein IVPB 11/17/24 20:57 Q10M PRN HYPOTENSION Metoprolol Tartrate 25 mg 10/17/24 09:00 10/19/24 15:31 Metoprolol Tartrate 25 Mg Tablet PO 25 mg DAILY [facility] Administration Ondansetron HCl 4 mg 10/16/24 17:22 Ondansetron Inj 4 Mg/2 Ml Vial IV PUSH Q4H PRN Nausea Pantoprazole Sodium 40 mg 10/17/24 09:00 10/19/24 08:14 Pantoprazole 40 Mg Tablet PO 40 mg QAM NICOLE Administration Vitamin B Complex/Folic Acid 1 cap 10/17/24 09:00 10/19/24 08:14 Vitamin B Cmplx/Vit C/Folic Ac 1 Capsule PO 1 cap QAM NICOLE Administration Labs Labs: Laboratory Results - last 24 hr 10/19/24 04:58 WBC 8.7 RBC 2.46 L Hgb 7.8 L Hct 24.9 L MCV 101.2 H MCH 31.7 MCHC 31.3 L RDW 18.9 H Plt Count 264 MPV 8.6 Immature Gran % (Auto) 0.6 H Neut % (Auto) 77.6 H Lymph % (Auto) 10.5 L [place] % (Auto) 6.2 Eos % (Auto) 4.4 Baso % (Auto) 0.7 Lymph # (Auto) 0.91 [place] # (Auto) 0.5 Eos # (Auto) 0.4 H Baso # (Auto) 0.1 Abs Immat Gran (auto) 0.05 H Absolute Neuts (auto) 6.7 Absolute Nucleated RBC 0.000 Nucleated RBC % 0.0 Sodium 136 L Potassium 4.1 Chloride 101 Carbon Dioxide 27 Anion Gap 8 BUN 92 H D Creatinine 5.54 H Estim Creat Clear Calc 11 Estimated GFR 10 L Glucose 98 Calcium 8.0 L Magnesium 2.4 H Total Bilirubin 0.4 AST 25 ALT 27 Alkaline Phosphatase 145 H Total Protein 5.0 L Albumin 2.9 L Quality VTE Prophylaxis VTE prophylaxis: mechanical ordered Hospitalist MIPS Advance Care Plan I have confirmed that the patient's Advanced Care Plan is present, code status is documented, or surrogate decision maker is listed in patient medical record.: Yes Medication Reconciliation I have utilized all available resources to obtain, update and review the patients current medications (includes all prescriptions, OTC, herbals, cannabis, and nutritional supplements).: Yes
[2024-10-19] MEDS: DOXAZOSIN MESYLATE 4 MG TABLET PO (17:00)
[2024-10-19] MEDS: allopurinoL 100 MG TABLET BY MOUTH (17:00)
[2024-10-19] MEDS: ATORVASTATIN 40 MG TABLET 80 MG PO (17:03)
[2024-10-19 17:21] LABS: MRSA (PCR) NOT DETECTED (NOT DETECTE)
[2024-10-20 04:44] LABS: Protein, Total 4.8 g/dL (6.1-8.1)
[2024-10-20 05:05] VITALS: BP 137/46; PULSE 79; RESP 17; TEMP 36.5; O2SAT 96
[2024-10-20 08:36] VITALS: PULSE 80
[2024-10-20] MEDS: VITAMIN B CMPLX/VIT C/FOLIC AC 1 CAPSULE 1 CAP PO (08:36)
[2024-10-20] MEDS: AMIODARONE HCL 200 MG TABLET 400 MG BY MOUTH (08:36)
[2024-10-20] MEDS: ASPIRIN 81 MG ENTERIC TABLET PO (08:36)
[2024-10-20] MEDS: FERROUS SULFATE 325 MG TABLET DR BY MOUTH (08:36)
[2024-10-20] MEDS: PANTOPRAZOLE 40 MG TABLET PO (08:36)
[2024-10-20 08:37] VITALS: PULSE 80; RESP 18; O2SAT 96
[2024-10-20] MEDS: calcitrioL 0.25 MCG CAPSULE PO (08:37)
[2024-10-20] MEDS: FUROSEMIDE 40 MG TABLET PO ×2 (08:37→16:56)
[2024-10-20] MEDS: METOPROLOL TARTRATE 25 MG TABLET PO (08:37)
--- NOTE | 2024-10-20 10:01 | P.PNNP_ITS ---
Progress Note: A&P Assessment and Plan (1) End stage renal disease: Code(s): N18.6 - End stage renal disease Status: Chronic Assessment and Plan: * HD tomorrow * continue T/T/S outpatient dialysis schedule while hospitalized * follow electrolytes, volume status, and clearance (2) Anemia: Qualifiers: Anemia type: unspecified type Qualified Code(s): D64.9 - Anemia, unspecified Code(s): D64.9 - Anemia, unspecified Status: Acute Assessment and Plan: * chronic issue/problems for the last several months * was getting IV iron and GILBERT as an outpatient even prior to dialysis initiation * s/p recent EGD/colonoscopy at [facility] a few months ago (reportedly negative findings) * GI recommendations noted: * consider outpatient capsule endoscopy per PCP * PRBC transfusion per protocol * follow trend of H/H * Hem/Onc recommendations reviewed * tagged RBC scan today (3) Diastolic heart failure: Code(s): I50.30 - Unspecified diastolic (congestive) heart failure Status: Chronic Assessment and Plan: * appears compensated at this time * fluid removal with dialysis to maintain euvolemia * still makes urine - on oral diuretics (4) Atrial fibrillation: Code(s): I48.91 - Unspecified atrial fibrillation Status: Acute Assessment and Plan: * rate control strategy * on amiodarone and metoprolol * no anticoagulation (due to #2?) (5) Hypertension: Code(s): I10 - Essential (primary) hypertension Status: Chronic Assessment and Plan: * well controlled * follow trend of hemodynamics (6) Diabetes: Code(s): E11.9 - Type 2 diabetes mellitus without complications Status: Chronic Assessment and Plan: * diet controlled(?) * glycemic control per hospitalist Possible discharge today if tagged RBC scan is negative.... Will continue to follow. L Subjective Date/time seen: 10/20/24 10:01 Interval history: Folow-up for end stage renal disease on hemodialysis. Tolerated dialysis treatment yesterday without any issues or problems; no apparent distress voiced at the time of my visit; waiting to get tagged RBC scan to be done; no other events overnight to earlier this morning. Exam 2 Narrative: General: elderly but WD/WN male in NAD Heart: normal S1 and S2; no rub Lungs: c;lear anteriorly Abdomen: soft, nontender, nondistended, positive bowel sounds Extremities: no cyanosis or clubbing; no edema Skin: no rash or nodules Objective Data Vital Signs Vital Signs: Vital Signs Temp Pulse Resp BP Pulse Ox O2 Del Method FiO2 10/20/24 08:37 18 96 Room Air 10/20/24 08:37 80 10/20/24 08:36 80 10/20/24 05:05 97.7 F 79 17 137/46 L 96 10/19/24 20:00 66 17 97 Room Air 21 10/19/24 19:37 98.0 F 66 17 137/47 L 97 Intake/Output Intake/Output: Intake & Output 10/17/24 10/18/24 10/19/24 10/20/24 23:59 23:59 23:59 23:59 Intake Total 920 1420 2210 240 Output Total 3000 Balance 920 1420 -790 240 Meds/Results Medications: Active Medications Generic Name Dose Route Start Last Admin Trade Name Freq PRN Reason Stop Dose Admin Acetaminophen 650 mg 10/16/24 17:22 Acetaminophen 325 Mg Tablet PO Q4H PRN Mild Pain (1-3) or Fever Allopurinol 100 mg 10/19/24 18:00 10/19/24 17:00 Allopurinol 100 Mg Tablet BY MOUTH 100 mg TuThSa@1800 [facility] Administration Amiodarone HCl 400 mg 10/17/24 08:00 10/20/24 08:36 Amiodarone Hcl 200 Mg Tablet BY MOUTH 400 mg DAILY@0800 NICOLE Administration Aspirin 81 mg 10/17/24 09:00 10/20/24 08:36 Aspirin 81 Mg Enteric Tablet PO 81 mg QAM NICOLE Administration Atorvastatin Calcium 80 mg 10/17/24 18:00 10/19/24 17:03 Atorvastatin 40 Mg Tablet PO 80 mg QPM NICOLE Administration Calcitriol 0.25 mcg 10/17/24 09:00 10/20/24 08:37 Calcitriol 0.25 Mcg Capsule PO 0.25 mcg DAILY NICOLE Administration Doxazosin Mesylate 4 mg 10/17/24 18:00 10/19/24 17:00 Doxazosin Mesylate 4 Mg Tablet PO 4 mg QPM NICOLE Administration Ferrous Sulfate 325 mg 10/17/24 09:00 10/20/24 08:36 Ferrous Sulfate [address] BY MOUTH 325 mg DAILY NICOLE Administration Furosemide 40 mg 10/17/24 09:00 10/20/24 08:37 Furosemide 40 Mg Tablet PO 40 mg BID NICOLE Administration Albumin Human 50 mls @ 999 mls/hr 10/18/24 20:58 Albutein IVPB 11/17/24 20:57 Q10M PRN HYPOTENSION Metoprolol Tartrate 25 mg 10/17/24 09:00 10/20/24 08:37 Metoprolol Tartrate 25 Mg Tablet PO 25 mg DAILY NICOLE Administration Ondansetron HCl 4 mg 10/16/24 17:22 Ondansetron Inj 4 Mg/2 Ml Vial IV PUSH Q4H PRN Nausea Pantoprazole Sodium 40 mg 10/17/24 09:00 10/20/24 08:36 Pantoprazole 40 Mg Tablet PO 40 mg QAM NICOLE Administration Vitamin B Complex/Folic Acid 1 cap 10/17/24 09:00 10/20/24 08:36 Vitamin B Cmplx/Vit C/Folic Ac 1 Capsule PO 1 cap QAM NICOLE Administration Radiology Results: ITS Impressions GI Bleed Scan Nuclear Medicine 10/20/24 12:58 IMPRESSION: 1. No scintigraphic evidence for active gastrointestinal bleeding. Labs Labs: Laboratory Tests 10/19/24 04:58 10/19/24 04:58
[2024-10-20 14:00] VITALS: BP 132/45; PULSE 70; RESP 16; TEMP 36.6; O2SAT 98
--- NOTE | 2024-10-20 16:35 | P.DS_ITS ---
DS: Admitting Diagnosis Discharge Date 10/20/2024 Admitting Diagnosis Anemia DS: Discharge Diagnosis Discharge Diagnosis (1) Acute on chronic anemia: Code(s): D64.9 - Anemia, unspecified Status: Acute Assessment and Plan: s/p 2 units Hb 7.8 Transfuse for hemoglobin less than 7 or symptomatic Gi evaluated and recommended Onoclogy eval, no indication for endoscopic intervention Oncology consulted (2) ESRD on dialysis: Code(s): N18.6 - End stage renal disease; Z99.2 - Dependence on renal dialysis Status: Acute Assessment and Plan: Dialysis Friday Continue home medications Nephrology following (3) Diabetes: Code(s): E11.9 - Type 2 diabetes mellitus without complications Status: Chronic Assessment and Plan: Not On medication home Managed by diet (4) Gout: Code(s): M10.9 - Gout, unspecified Status: Acute Assessment and Plan: Continue home medication (5) Hyperlipidemia: Code(s): E78.5 - Hyperlipidemia, unspecified Status: Acute Assessment and Plan: Continue home medication (6) Atrial fibrillation: Code(s): I48.91 - Unspecified atrial fibrillation Status: Acute Assessment and Plan: Continue home medication DS: Summary Hospital Course Hospital Course: 74-year-old male with end-stage renal disease on dialysis, diastolic CHF, hyperlipidemia, hypertension diabetes atrial fibrillation presents the hospital after dialysis with anemia. Patient states that he has no complaints. He is only at the hospital because he was told to come here. He denies dizziness, shortness of breath, nausea vomiting, fever or chills. In the his hemoglobin is 5.2 hematocrit 17.0, last month his hemoglobin was 7.7, chloride of 95, carbon dioxide 36, BUN of 53 and creatinine 2.89, calcium of 7.8. 2 units RBCs was ordered and Nephrology was consulted. In regards to anemia patient had recent EGD and colonoscopy which was normal. A company miner blasting was consulted, and request to follow-up as an outpatient. She was consulted and reported no indication for endoscopic evaluation at this time given recent negative workup but may consider outpatient capsule endoscopy with the primary GI to evaluate for possible small bowel source of blood loss. Today patient underwent tagged RBC scan which shows no evidence of bleeding. Patient needs to follow-up with weekly H&H with primary care physician. Explained to the family/daughter. Who understands the plan and verbalized. On the day of discharge, the patient was seen and examined. Vital signs were stable. Physical exam were stable and labs were reviewed at length. Discharge instructions, medications, and follow-up appointments were discussed with the patient at length and all day questions were answered. ER warnings were given. Status at Discharge Cognitive/behavioral status at discharge: Stable Time Spent with Patient Time attestation: Total time spent providing and/or coordinating discharge services: 45 minutes Exam Narrative: General: well appearing, appears stated age. HEENT: normocephalic, atraumatic. Mucous membranes moist. EOMI, PERRLA, bilateral sclera anicteric, no conjunctival injection. Neck supple without JVD, lymphadenopathy, or bruit. Respiratory: clear to ascultation bilaterally. No rales/rhonic/wheezes. Cardiovascular: Regular rate and rhythm, normal S1-S2 upon ascultation. No murmurs, rubs, or clicks. PMI is nondisplaced, capillary refill less than 3 sec ond. Left AV fistula positive bruit and thrill Abdomen: Soft, round, no pulsatile masses, nondistended and nontender. No rebound, no guarding. No CVA tenderness, no hepatosplenomegaly. Bowel sounds present to all four quadrants. No high pitch or tinkling sounds, resonant to percussion. Extremities: No cyanosis, clubbing, or edema present. Pulses are palpable 2/2. Active ROM to all four extremities. Neuro: Alert and orientated x 4. PERRLA. Cranial nerves 2-12 intact without focal deficit. Skin: Warm, dry, and intact, without rash, erythema, or lesion. Psych: pleasant, cooperative, normal speech, normal affect, no hallucinations, no dysarthia DS: Data Data Completed and Pending Labs on day of discharge: Labs from last 24 hours 10/19/24 10/19/24 16:05 04:57 Total Protein 4.8 L Nasal MRSA (PCR) Not detected Imaging Radiologist's impression: ITS Impressions GI Bleed Scan Nuclear Medicine 10/20/24 12:58 IMPRESSION: 1. No scintigraphic evidence for active gastrointestinal bleeding. Discharge Plan Discharge Attending physician on discharge: Hitesh Corley Consulting providers: Ziggy Gimenez; Iron Cunningham Discharging Clinician: Hitesh Corley Anticipated Discharge Date/Time: 10/17/24 12:45 Patient Disposition: Home Activity: as tolerated Diet: as tolerated Discharge Instructions: Please follow-up with your primary casting machine operator for possible capsule endoscopy. Please closely follow-up with company miner blasting/oncologist Please follow-up with medicaid specialist for dialysis In case of tiredness, shortness of breath, palpitation please P sitting nearby ED If possible try to follow-up with the PCP and perform weekly H&H I ordered CBC for next week Patient Instructions: Antibiotic Form, Heart Failure (GEN) Patient Language: Palestinian Stand Alone Forms: General Discharge Information Follow-up/Referrals: Iron Cunningham MD [Physician] - (COntineu follow up with Dr Cunningham as instructed ) Juanpablo,Chandler Liao DO [Primary Care Provider] - (F/u with PCP in 3- 5 days ) Ziggy Gimenez MD [Physician] - (F/u with Nephrology as instructed ) Discharge Medications: Continued furosemide 40 mg tablet 120 mg PO BID Rx Instructions: on non-dialysis days allopurinol 100 mg tablet See Rx Instructions .ROUTE .COMPLEX Rx Instructions: after dialysis Friday, , Friday amiodarone 400 mg tablet 200 mg PO DAILY metoprolol tartrate 25 mg tablet 25 mg PO DAILY pantoprazole [Protonix] 40 mg tablet,delayed release (DR/EC) 40 mg PO QAM doxazosin [Cardura] 4 mg tablet 4 mg PO QPM ferrous sulfate [iron] 325 mg (65 mg iron) tablet 325 mg PO DAILY calcitriol 0.25 mcg capsule 0.25 mcg PO DAILY Dialyvite 800 800 mcg tablet,chewable 1 tablet PO DAILY atorvastatin 40 mg Tablet 80 mg PO EVENING Qty: 30 0RF aspirin 81 mg Tablet,Delayed Release (Dr/Ec) 81 mg PO QAM Qty: 30 0RF Other Ambulatory Orders: Complete Blood Count no Diff (Routine) Timeframe: 1 Week Location: Determined by Patient Ordered By: Hitesh Corley Date of admission: 10/17/24 13:21 Primary Care Provider: Juanpablo,Chandler Liao Admitting Provider: Rox Chung Attending physician on admission: Rox Chung Condition: Stable
[2024-10-20] MEDS: ATORVASTATIN 40 MG TABLET 80 MG PO (16:55)
[2024-10-20] MEDS: DOXAZOSIN MESYLATE 4 MG TABLET PO (16:56)
[2024-10-21 05:27] LABS: Methylmalonic Acid 461 nmol/L (69-390)
[2024-10-21 08:48] LABS: Abnormal Protein Band 1 0.1 g/dL (NONE DETECTED); Albumin 2.8 g/dL (3.8-4.8); Alpha 1 Globulin 0.3 g/dL (0.2-0.3); Alpha 2 Globulin 0.7 g/dL (0.5-0.9); Beta 1 Globulin 0.3 g/dL (0.4-0.6); Gamma Globulin 0.6 g/dL (0.8-1.7)
[2024-10-21 11:48] LABS: Erythropoietin (EPO) 19.1 mIU/mL (2.6-18.5)
[2024-10-21 12:44] LABS: ANCA Screen NEGATIVE (NEGATIVE)
[2024-10-23 03:39] LABS: Haptoglobin 197 mg/dL (43-212)
== END 2024-10-20 17:05 | disposition home or self-care (01) | DRG 291 ==
LOC: ANHED 17:59 → ANH2MED 18:23
PROVIDERS: Internal Medicine Hematology & Oncology; Internal Medicine Nephrology; Nurse Practitioner Family; Nurse Practitioner Gerontology; Student in an Organized Health Care Education/Training Program; Admitting Provider Internal Medicine; Emergency Provider Emergency Medicine; PCP Family Medicine; Visit Provider General Practice
DX: I13.2 Hypertensive heart and chronic kidney disease with heart failure and with stage 5 chronic kidney disease, or end stage renal disease (principal); N18.6 End stage renal disease; E11.22 Type 2 diabetes mellitus with diabetic chronic kidney disease; Z99.2 Dependence on renal dialysis; I50.32 Chronic diastolic (congestive) heart failure; I77.82 Antineutrophilic cytoplasmic antibody [ANCA] vasculitis; E78.5 Hyperlipidemia, unspecified; D63.1 Anemia in chronic kidney disease; I48.0 Paroxysmal atrial fibrillation; M10.9 Gout, unspecified; Z98.41 Cataract extraction status, right eye; Z98.42 Cataract extraction status, left eye; Z87.891 Personal history of nicotine dependence; Z79.82 Long term (current) use of aspirin
CPT/HCPCS: 36415; 36430; 78278; 80048; 80053; 82607; 82668; 82728; 82746; 83010; 83540; 83550; 83615; 83735; 83921; 84100; 84155; 84165; 84238; 85014; 85018; 85025; 85046; 85610; 85652; 85730; 86036; 86334; 86706; 86850; 86880; 86900; 86901; 86923; 87340; 87641; 96361; 96374; 99285; A9270; A9560; G0257; G0378; J7030; J7050; P9016; Q5105

== ENCOUNTER 2024-10-27 10:37 | Outpatient (CLI) | payer MEDICARE, MEDICAID, SELFPAY ==
--- OUTSIDE RECORDS SUMMARY | 2024-10-27 10:47 | XMS_ITS | Clinical Summary ---
Author Organization [facility] [address] Address [address] [place] [address] Care Team Providers Care Roadway Engineer Name Role Phone Unavailable Primary Care Provider Unavailabl e Source Comments [facility] [address],non-owned Affiliates and Associated Physician Practices is amultiple site organization consisting of ambulatory clinics and hospital sitesin [place], [place], [place] and [place]. This disclosure is being madepursuant to the Care Everywhere program and may not contain all information available regarding this patient. 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 COLORIST FORMULATOR Gender Identity Not on file Sexual Orientation Not on file Last Filed Vital Signs Vital Sign Reading Time Taken Comments Blood Pressure 113/89 06/17/2011 5:40 PM DYE COLORIST FORMULATOR Pulse 67 06/17/2011 9:53 PM DYE COLORIST FORMULATOR Temperature 36.3 C (97.3 F) 06/17/2011 5:40 PM DYE COLORIST FORMULATOR Respiratory Rate 16 06/17/2011 5:40 PM DYE COLORIST FORMULATOR Oxygen Saturation 95% 06/17/2011 9:53 PM DYE COLORIST FORMULATOR Inhaled Oxygen Concentration - - Weight 91.6 kg (202 lb) 06/17/2011 5:40 PM DYE COLORIST FORMULATOR Height 177.8 cm (5' 10) 06/17/2011 5:40 PM DYE COLORIST FORMULATOR Body Mass Index 28.98 06/17/2011 5:40 PM DYE COLORIST FORMULATOR Plan of Treatment Health Maintenance Due Date [...]
--- OUTSIDE RECORDS SUMMARY | 2024-10-27 10:47 | XMS_ITS | Continuity of Care Document ---
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 Helper Name Role Phone Chandler John DO Unavailable [...] [employer] - Active Procedures Procedure Date DSCHRG MED/CURRENT MED MERGE Transitional Care- First 7 Days Of Disch arge SYST BP LT 130 MM HG DIAST BP < 80 MM HG Kept Appointment No Charge Encounter Aug DSCHRG MED/CURRENT MED MERGE DSCG MED/CURRENT MED MERGE Transitional Care- First 7 Days Of Disch arge BODY MASS INDEX DOCD SYST BP LT 130 MM HG DIAST BP < 80 MM HG FALL RISK ASSESSMENT DOC'D PRES/ABSN URINE INCON ASSESS Pt inelig neg scrn depres PNEUMOVAX ADM MEDICARE Pneumococcal Conjugate Vaccine (PCV20) D Admin influenza virus vac INFLUENZA VACCINE, 0.5mL DOSAGE; FLUZONE OFFICE [id number]-[id number]-[id number] BODY MASS INDEX DOCD SYST BP LT 130 MM HG DIAST BP < 80 MM HG BASIC METABOLIC PANEL(BMP) HEMOGLOBIN A1C HGA1C, GLYCO LIPID PANEL MICROALBUMIN, QN (URINE) CREATININE, (U-R) PSA, TOTAL URINALYSIS W MICROSCOPIC (UA) ROUTINE VENIPUNCTURE [place] OFFICE [id number]-[id number]-VDAROXSY Visit Complexity Inherent To E/M 2023 BODY MASS INDEX DOCD SYST BP LT 130 MM HG DIAST BP < 80 MM HG FALL RISK ASSESSMENT DOC'D PRES/ABSN URINE INCON ASSESS Pt inelig neg scrn depres Admin influenza virus vac FLU VACC 4 BINH 0.5mL DOSAGE OFFICE USAOY-ZRB-[id number] BODY MASS INDEX DOCD SYST BP LT 130 MM HG DIAST BP < 80 MM HG No Show Appt Charge DSCHRG MED/CURRENT MED MERGE OFFICE QEHDL-QUJ-MLNV BODY MASS INDEX DOCD SYST BP LT 130 MM HG DIAST BP < 80 MM HG Transitional Care- First 7 Days Of Disch arge CBC, INC PLATELETS AND DIFFERENTIAL COMPREHEN METABOLIC PANEL CMP HEMOGLOBIN A1C HGA1C, GLYCO LIPID PANEL MICROALBUMIN, QN (URINE) CREATININE, (U-R) PSA, TOTAL, SCREENING MEDICARE ONLY PARATHYROID HORMONE (PTH) VITAMIN D, 25-HYDROXY ROUTINE VENIPUNCTURE IL OFFICE XIZAZ-LKO-SKALYMZT BODY MASS INDEX DOCD SYST BP GE 130 - 139MM HG DIAST BP < 80 MM HG OFFICE QCVSK-XMG-WUHLTUMJ BODY MASS INDEX DOCD SYST BP GE 130 - 139MM HG DIAST BP < 80 MM HG Pt inelig neg scrn depres FALL RISK ASSESSMENT DOC'D PRES/ABSN URINE INCON ASSESS OFFICE EGFRR-YUU-[id number] BODY MASS INDEX DOCD SYST BP LT 130 MM HG DIAST BP < 80 MM HG HEMOGLOBIN A1C HGA1C, GLYCO URINALYSIS, REFLEX (UA) ROUTINE VENIPUNCTURE OFFICE BOMKG-XHQ-ULXCWOTT BODY MASS INDEX DOCD SYST BP LT [...] DIAST BP < 80 MM HG OFFICE ZOSWN-NDA-AOFGVMHE COMPREHEN METABOLIC PANEL CMP HEMOGLOBIN A1C HGA1C, GLYCO LIPID PANEL ROUTINE VENIPUNCTURE Admin influenza virus vac FLU VACC 4 BINH 0.5mL DOSAGE OFFICE NKAKP-WXO-CICUTHLJ BODY MASS INDEX DOCD SYST BP GE 130 - 139MM HG DIAST BP < 80 MM HG FALL RISK ASSESSMENT DOC'D PRES/ABSN URINE INCON ASSESS Pt inelig neg scrn depres CBC, INC PLATELETS AND DIFFERENTIAL COMPREHEN METABOLIC PANEL CMP LIPID PANEL PSA, TOTAL, SCREENING MEDICARE ONLY ROUTINE VENIPUNCTURE OFFICE MATME-YIJ-JNGOQAHO BODY MASS INDEX DOCD SYST BP GE 130 - 139MM HG DIAST BP < 80 MM HG HEMOGLOBIN A1C HGA1C, GLYCO CBC, INC PLATELETS AND DIFFERENTIAL COMPREHEN METABOLIC PANEL CMP 9 HEMOGLOBIN A1C HGA1C, GLYCO LIPID PANEL ROUTINE VENIPUNCTURE OFFICE [id number]-JPF-[id number] BODY MASS INDEX DOCD SYST BP LT [...] Diagnoses Date Provider Providers Copied on Encounter [facility], [address], [place], [place], [address] , [place] tel:[phone] [facility] No Information 5 Faustino Arteaga. [address] [place] [address], [id number], [place]. tel:[phone] Transitional Care- First 7 Days Of Discharge , [address], [place], [place], [address] , tel: [phone] [facility] Hospital Follow-Up (chief complaint)Chr onic Conditions (chief complaint) Body mass index [BMI] 24.0-24.9, adultHyperte nsive chronic kidney disease with stage 5 chronic kidney disease or end stage renal diseaseChron ic kidney disease, stage 5Dependence on renal dialysisHist ory of pneumoniaHer pes zoster with other complication Paroxysmal atrial fibrillation Apr- 5 Faustino Arteaga. [address] [place] [address], [id number], [place]. tel:[phone] Referring Provider: Chandler castro, [address] [place] [address], [address] . tel:[phone] , [address], [place], [place], [address] , [place] tel: [phone] [facility] No Information Aug-0 5 Faustino Arteaga. [address] [place] [address], [id number], [place]. tel:[phone] , [address], [place], [place], [address] , [place] tel: [phone] [facility] No Information 0 5 Faustino Arteaga. [address] [place] [address], [id number], [place]. tel:[phone] Referring Provider: Chandler castro, [address] [place] [address], [address] . tel:[phone] , [address], [place], [place], [address] , tel: [phone] [facility] No Information 5 Faustino Arteaga. [address] [place] [address], [id number], [place]. tel:[phone] Transitional Care- First 7 Days Of Discharge , [address], [place], [place], [address] , tel: [phone] [facility] Hospital Follow-Up (chief complaint)Oth er (chief complaint)Chr onic Conditions (chief complaint) Chronic kidney disease, stage 5HTN w/ chronic kidney disease stage 5Renal osteodystrop hyAnemia in other chronic diseases classified elsewhereTyp e 2 diabetes mellitus with other diabetic kidney complication Mixed hyperlipidem iaAtheroscle rosis of aortaBody mass index [BMI] 24.0-24.9, adultChronic diastolic (congestive) heart failure 5 Faustino Arteaga. [address] [place] [address], [id number], [place]. tel:[phone] Referring Provider: Chandler castro, [address] [place] [address], [address] . tel:[phone] OFFICE KCHVM-BHP-FME MAXINE , [address], [place], [place], [address] , [place] tel: [phone] [facility] 6 month F/U (chief complaint)Chr onic Conditions [...] complication Encounter for immunization 4 Faustino Arteaga. [address] [place] [address], [id number], [place]. tel:[phone] Referring Provider: Chandler castro, [address] [place] [address], [address] . tel:[phone] , [address], [place], [place], [address] , [place] tel: [phone] [facility] No Information 4 Faustino Arteaga. [address] [place] [address], [id number], [place]. tel:[phone] [facility], [address], [place], [place], [address] , [place] tel: [phone] [facility] No Information 4 Fozia Mckeonn. [address] [address], [place], [place], [id number], [place]. tel:[phone] Referring Provider: Chandler castro, [address] [place] [address], [address] . tel:[phone] OFFICE OSLIS-DGE-ZBS MAXINE , [address], [place], [place], [address] , tel: [phone] [facility] 6 month F/U (chief complaint)Chr onic Conditions (chief complaint) Hypertensive chronic kidney disease with stage 1 through stage 4 chronic kidney disease, or unspecified chronic kidney diseaseAntin eutrophilic cytoplasmic antibody [ANCA] vasculitisCh ronic kidney disease, stage 4 (severe)Type 2 diabetes mellitus with other diabetic kidney complication Anemia in other chronic diseases classified elsewhereRen al osteodystrop hyMixed hyperlipidem iaNocturiaBo dy mass index [BMI] 26.0-26.9, adultBr[facility] Hospitalount er for screening for malignant neoplasm of colon 4 Faustino Arteaga. [address] [place] [address], [id number], [place]. tel:[phone] Referring Provider: Chandler castro, [address] [place] [address], [address] . tel:[phone] OFFICE XLSGG-WNQ-ZPM MAXINE , [address], [place], [place], [address] , tel: [phone] [facility] 6 mo f/u (chief complaint)Chr onic Conditions (chief complaint) Body mass index [BMI] 25.0-25.9, adultAntineu trophilic cytoplasmic antibody [ANCA] vasculitisCh ronic kidney disease, stage 4 (severe)Hype rtensive chronic kidney disease with stage 1 through stage 4 chronic kidney disease, or unspecified chronic kidney diseaseType 2 diabetes mellitus with other diabetic kidney complication Immunodefici ency due to drugsEncount er for immunization 3 Faustino Arteaga. [address] [place] [address], [id number], [place]. tel:[phone] Referring Provider: Chandler castro, [address] [place] [address], [address] . tel:[phone] , [address], [place], [place], [address] , [place] tel: [phone] [facility] No Information 3 Faustino Arteaga. [address] [place] [address], [id number], [place]. tel:[phone] Referring Provider: Chandler castro, [address] [place] [address], [address] . tel:[phone] , [address], [place], [place], [address] , [place] tel: [phone] [facility] Hyperkalemia 3 Nelly Dejesus. [address] [place] [address], [address], . tel:[phone] OFFICE MZNUU-RZB-HXG P , [address], [place], [place], [address] , [phone] [facility] Follow-Up (chief complaint)Chr onic Conditions (chief [...] mitral valve regurgitatio n 3 Nelly Dejesus. [address] [place] [address], [address], [place]. tel:[phone] Referring Provider: Chandler castro, [address] [place] [address], [address] . tel:[phone] [facility], [address], [place], [place], [address] , tel:[phone] [facility] No Information 3 Fozia Wiley. [address] [place] [address], [id number], . tel:[phone] Referring Provider: Chandler castro, [address] [place] [address], [address] . tel:[phone] OFFICE LNUTW-ICN-JOI MAXINE , [address], [place], [place], [address] , tel: [phone] [facility] Patient encounter (chief complaint)oth er (chief complaint)Chr onic Conditions (chief complaint) ANCA associated vasculitisCh ronic kidney disease, stage 4 (severe)Ilene l osteodystrop hyAnemia in other chronic diseases classified elsewhereTyp e 2 diabetes mellitus with other diabetic kidney complication Mixed hyperlipidem iaAtheroscle rosis of aortaEncount er for screening for malignant neoplasm of prostateBody mass index [BMI] 28.0-28.9, adultHyperte nsive chronic kidney disease with stage 1 through stage 4 chronic kidney disease, or unspecified chronic kidney disease 3 Faustino Arteaga. [address] [place] [address], [id number], [place]. tel:[phone] Referring Provider: Chandler castro, [address] [place] [address], [place], [address] . tel:[phone] OFFICE FWFRJ-MNA-PUW [facility], [address], [place], [place], [address] , [place] tel: [phone] [facility] Patient encounter (chief complaint)oth er (chief complaint)Chr onic Conditions (chief complaint) Body mass index [BMI] 28.0-28.9, adultChronic kidney disease, stage 4 (severe)Ilene l osteodystrop hyType 2 diabetes mellitus with other diabetic kidney complication Encounter for screening for malignant neoplasm of prostate 2 Faustino Arteaga. [address] [place] [address], [id number], . tel:[phone] Referring Provider: Chandler castro, [address] [place] [address], [place], [address] . tel:[phone] OFFICE LQSUX-OLD-WVL [facility], [address], [place], [place], [address] , [place] tel: [phone] [facility] other (chief complaint)Chr onic Conditions (chief complaint) Body mass index [BMI] 27.0-27.9, adultNephrit ic syndrome w/ diffuse crescentic glomerulonep hritisChroni c kidney disease, stage 5Long term (current) use of insulinType 2 diabetes mellitus w/ diabetic kidney complication Immunosuppre ssionMixed hyperlipidem ia 2 Faustino Arteaga. [address] [place] [address], [id number], [place]. tel:[phone] Referring Provider: Chandler castro, [address] [place] [address], [place], [address] . tel:[phone] [facility], [address], [place], [place], [address] , [place] tel: [phone] [facility] No Information 2 Faustino Arteaga. [address] [place] [address], [id number], [place]. 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 [address] [place] [address], [id number], [place]. tel:[phone] Referring Provider: Chandler castro, [address] [place] [address], [address] . tel:[phone] Transitional Care- First 7 Days Of Discharge [facility], [address], [place], [place], [address] , tel: [phone] [facility] Hospital Follow-Up (chief complaint)oth er (chief complaint)Chr onic Conditions (chief complaint) Body mass index [BMI] 30.0-30.9, adultAKI (acute kidney injury)Hyper tensive renal diseaseType 2 diabetes mellitus w/ diabetic kidney complication Crescentic glomerulonep hritisImmuno suppressionH istory of COVID-19Chro emmett obstructive pulmonary disease, unspecified COPD type 2 Faustino Arteaga. [address] [place] [address], [id number], [place]. tel:[phone] Referring Provider: Chandler castro, [address] [place] [address], [place], [address] . tel:[phone] [facility], [address], [place], [place], [address] , tel: [phone] [facility] Exposure to COVID-19 virus 2 Faustino Arteaga. [address] [place] [address], [id number], [place]. tel:[phone] Referring Provider: Chandler castro, [address] [place] [address], [place], [address] . tel:[phone] Transitional Care- First 7 Days Of Discharge [facility], [address], [place], [place], [address] , tel: [phone] [facility] Hospital Follow-Up (chief complaint)Chr onic Conditions (chief complaint) Type 2 diabetes mellitus w/ diabetic kidney complication LEANDRO (acute kidney injury)Hyper tensive renal diseaseBody mass index [BMI] 28.0-28.9, adultAtheros clerosis of aortaAtheros clerotic heart disease of upper [place] coronary artery without angina pectorisMass of lingula of lungHemoptys isHematuria, unspecified type 2 Faustino Arteaga. [address] [place] [address], [id number], . tel:[phone] Referring Provider: Chandler castro, [address] [place] [address], [place], [address] . tel:[phone] OFFICE EEYUU-ZPP-CYW MAXINE [facility], [address], [place], [address] , [place] tel: [phone] [facility] Hospital Follow-Up (chief complaint)Tel ehealth (chief complaint)Chr onic Conditions (chief complaint) Mixed hyperlipidem iaType 2 diabetes mellitus w/ diabetic kidney complication Gastroesopha geal reflux disease without esophagitisA KI (acute kidney injury) 1 Faustino Arteaga. [address] [place] [address], [place], [place], [address], [place]. tel:[phone] Referring Provider: Chandler castro, [address] [place] [address], [place], [address] . tel:[phone] OFFICE HZQDZ-AJU-HKC MAXINE [facility], [address], [place], [place], [address] , [place] tel:[phone] [facility] acute visit (chief complaint)Chr onic Conditions (chief complaint) Body mass index [BMI] 32.0-32.9, adultPrediab etesAtherosc lerosis of aortaBalanit isEncounter for immunization 1 Faustnio Arteaga. [address] [place] [address], [place], [place], [address], . tel:[phone] Referring Provider: Chandler castro, [address] [place] [address], [place], [address] . tel:[phone] OFFICE NPRYW-JRT-RGI [facility], [address], [place], [place], [address] , [place] tel:[phone] [facility] Atheroscleros is of aorta (chief complaint)ARMATURE BALANCER D (chief complaint)oth er (chief complaint)Chr onic Conditions (chief complaint) Body mass index (BMI) 32.0-32.9, adultChronic obstructive pulmonary disease, unspecifiedA theroscleros is of aortaNocturi aPrediabetes 1 Faustino Arteaga. [address] [place] [address], [place], [place], [address], [place]. tel:[phone] Referring Provider: Chandler castro, [address] [place] [address], [place], [address] . tel:[phone] [facility], [address], [place], [place], [address] , [place] tel:[phone] [facility] No Information 1 Faustino Arteaga. [address], [place], [id number], [place]. tel:[phone] [facility], [address], [place], [place], [address] , [place] tel: [phone] [facility] Prediabetes 0 Yolis Soria. [address] , [address], [place], [place], [address], [place]. tel:[phone] OFFICE MLDAT-GFQ-UNJ ANDED [facility], [address], [place], [place], [address] , [place] tel: [phone] [facility] Chronic Conditions (chief complaint)12 month follow up (chief complaint) Atherosclero sis of aortaChronic obstructive pulmonary disease, unspecifiedA bnormal finding on diagnostic imaging of liver 9 Yolis Soria. [address], [place], [place], [address], [place]. tel:[phone] Referring Provider: Yang Lagos, [address], [place], [address] . [phone] [facility], [address], [place], [place], [address] , [place] tel: [phone] [facility] Liver mass 9 Yolis Soria. [address], [place], [place], [address], [place]. [phone] [facility], [address], [place], [place], [address] , [place] tel: [phone] [place] [facility] Epigastric pain 9 Yolis Soria. [address], [place], [place], [address], [place]. tel:[phone] Referring Provider: Yang Lagos, [address], [place], [address] . tel:[phone] [facility], [address], [place], [place], [address] , tel: [phone] [facility] Atherosclero sis of aortaChronic obstructive pulmonary disease, unspecifiedP rediabetesBe nign neoplasm of colon, unspecified 8 Yolis Soria. [address], [place], [place], [address], [place]. tel:[phone] Referring Provider: Yang Lagos, [address], [place], [address] . tel:[phone] [facility], [address], [place], [place], [address] , tel: [phone] [facility] Ingrown toenail 7 Yolis Soria. [address], [place], [place], [address], . tel:[phone] [facility], [address], [place], [place], [address] , tel: [phone] [facility] Ingrown toenail Yolis Soria. [address], [place], [place], [address], [place]. tel:[phone] Referring Provider: Yang Lagos, [address], [place], [address] . [phone] [facility], [address], [place], [place], [address] , tel: [phone] [place] [facility] Chronic obstructive pulmonary disease, unspecified COPD typeTubular adenoma 7 Yolis Soria. [address], [place], [place], [address], [place]. tel:[phone] Referring Provider: Yang Lagos, [address], [place], [address] . tel:[phone] [facility], [address], [place], [place], [address] , [place] tel: [phone] [place] [facility] Abnormal levels of other serum enzymes Oct-2 4 6 Yolis Soria. [address] , [address], [place], [address], [place]. tel:[phone] Referring Provider: Yang Lagos, [address], [place], [address] . tel:[phone] [facility] [employer], [address], [place], [place], [address] , tel: [phone] [place] [facility] Tubular adenomaChron ic obstructive pulmonary disease, unspecified COPD type Sep-2 6 6 Yolis Soria. [address] , [address] [place] [address], [id number], . tel:[phone] Referring Provider: Yang Lagos, [address] [place] [address], [address] . tel:[phone] [facility], [address], [place], [place], [address] , tel: [phone] [place] [facility] Tubular adenoma 2 6 Yolis Soria. [address] , [address] [place] [address], [id number], . tel:[phone] [facility] [employer], [address], [place], [address] , tel: [phone] [facility] Shortness of breathNon morbid obesity, unspecified obesity typeMidline low back pain without sciaticaChro emmett obstructive pulmonary disease, unspecified COPD typePrediabe tesPrediabet es Mar-0 9-201 6 Yolis Soria. [address] [facility], [address], [place], [address], [place]. tel:[phone] Referring Provider: Yang Lagos, [address] [facility] [address], [place], [address] . tel:[phone] Family History Family Member Type Diagnosis Age [...] administered 21 days apart administered Source: Other [facility] Fluzone Quad, split virus, 0.5mL dosage administered [...] Payer name Insurance type Covered libertarian ID Authoriza tion(s) [facility] [place] [id number] Presentain [employer] MB [id number] [employer] [place] [id number] [employer] MB [id number] [employer] MB [id number] [employer] [place] [id number] [employer] MB [id number] Social History Type Description Quantity Date Captured [...] Referral Referred To: Peggy Beaver [address] [place], [phone] Ordered: Referrals: Gastroenterology. Peggy Beaver. Evaluation/diagnostic/treatment - Level 3 Appointment date/timeframe: 01/08/2023 ordered Referral Referred To: Dr. Ernst Good Ordered: Referrals: Cardiology. Dr. Ernst Good. Evaluation/diagnostic/treatment - Level 3 ordered Referral Referred To: Dr. Trujillo Ordered: Referrals: Urology. Dr. Trujillo. Evaluation/diagnostic/treatment - Level 3 Appointment date/timeframe: 10/08/2021 ordered Referral Referred To: David Hamilton [address], [place], [phone] Ordered: Referrals: Nephrology. David Hamilton. Evaluation/diagnostic/treatment - Level 3 ordered Referral Referred To: [address], [place], [phone] Ordered: CT chest without contrast ordered Referral Referred To: Watson Corral OD [address], [place], [phone] Ordered: Referrals: Pumper Gager. Watson Corral OD. Evaluation/diagnostic/treatment - Level 3 ordered Appointment Bulmaro Chavez BOOK ED Patient Education [...] with daughter Jeison for follow-up.Patient went to [place] emergency room after having chest pain on [...] Past appt:Dialysis and labs drawn, sent to [place] - Today Future appt:Cardiology - 09/30/24 Chronic [...] daughter for hospital follow-up.Patient was seen at [facility] from 05/27 to 06/05.Patient went to the [...] ASUM 04/14 Chronic Conditions *See Chronic Conditions [facility] Hospital Follow-Up The patient w as seen today for a hospital follow-up visit, after being discharged on 10/12/2022. Details regarding this most recent admission include: Patient presents today for hospital follow-up. He is accompanied by his son, Harshil. He primarily speaks Kinyarwanda. 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 He has a history of hypertension, diabetes, ANCA vasculitis, anemia, stage V CKD and hyperlipidemia.He had been reporting increased weakness and fatigue for the past 2 weeks prior to admission and chest pain and increased work of breathing while cutting grass before admission.He had been getting erythropoietin outpatient through tile and mottle supervisor Dr. Hamilton. Upon admission his hemoglobin was [...] Deltasone 5mgDc Home on 10.12.2022.Recommend appointment with tile and mottle supervisor Dr. Hamilton in 1 week- no appt yet.Director Staffing Dr. Good in 1 monthSt[facility] infusion [...] HPI Crescentic glomerulonephritis La st OV with Nuclear Control Operator, Dr. Hamilton 07/16/21Labs drawn last week ordered [...] with COVIDhe did receive mAb infusion at [facility] d/cStill having weakness and occasional shortness of [...] how much. other Infusion schedul ed at [facility], has a port.Does not have future [...] recommendation for worsening renal functionpt was in [facility] from 05/11-05[facility]14 for abdominal pain and LEANDRO, on d/c Cr was at 3.2he had repeat labs on 05/24 with Cr up to 4.78, these were ordered and performed at [facility] and I was unable to obtain them until 05/29, pt and family were unsure who ordered and had not been contacted about them before. pt was having worsening abd pain and I recommended ED, family took him to [facility] he went to the ED [...] acted as translators as patient is primarily tamazight speakingPt has several children, including Harshil, Radha [...] Telehealth This visit was c ompleted via [facility] Telehealth visit with real time audio and [...] Conditions HPI Chronic Conditions *See Chronic Conditions [facility] acute visit Chief complaint: penile injury. Symptoms started 1 weeks ago; are moderate; are worsening. This is a recurrent problem. Skin tear to penis, went to Urgent Care in [place] 03/27/21Prescribed clotrimazole 1% cream to be applied [...] the high dose flu vaccine.pt speaks little Bulgarian, son Harshil translating other Huixiaoer 09/13, 10/04 Alert LogicsAdvised pt to call pharmacy for Shingrix.Denies urinary issues or bowel issues.occasional nocturia 2-3 times a nightno pain or hematuriaWould like to know when he should have his prostate checked and next colon screening. Chronic Conditions *See Chronic Conditions [facility] Atherosclerosis of aorta Denies chest pain, swelling in lower extremitiesArthritis in hands.Would take Aleve or Tylenol prn.no swelling or injury COPD Additional infor mation: Occasional shortness of breath.Cough with prolonged speaking.Quit smoke 9 years ago. Chronic Conditions *See Chronic Conditions [facility] 12 month follow up Chronic Conditions Functional Status Date Functional Assessmen t No Information Instructions Date Instruction Additional Infor mation Your lungs sound cuong ar continue to monitor for cough Related to History of pneumonia Follow-up with [facility] and tile and mottle supervisor Related to Dependence on renal dialysis Your heart rates wel l-controlled we will continue metoprolol and aspirin and amiodarone. Related to Paroxysmal atrial fibrillation At this time I will start you on renally dosed valacyclovir, this is 500 mg taken after dialysis. 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 Related to Anemia in other chronic diseases [...] mass index [BMI] 26.0-26.9, adult Follow-up with cailin mendez and get transfusions as needed Related [...] would like you to follow-up with a cnc operator machinist at [facility]. I will help facilitate this. The name is Dr. Ochoa with any questions or concernsCBC and BMP [facility] Related to Nonrheumatic mitral valve regurgitation Your diabetes is wel l controlled. The A1c was 6.6. Related to Type 2 diabetes mellitus with other diabetic kidney complication you received blood i n the hospital and you will continue to get the infusions to help with the blood counts outpatient. Your next appointment is October 24 at the infusion center at [facility].We will also start the process of [...] the next time you go to the tile and mottle supervisor office to get labs Related to Type 2 diabetes mellitus with other diabetic kidney complication Dietary management e ducation, guidance, and counseling Related to Body mass index (BMI) 28.0-28.9, adult Giving encouragement to exercise Related to Body mass index (BMI) 28.0-28.9, adult Continue 15 units daily at this time Related to long-term (current) use of insulin We will work [...] continu e prednisone and follow-up with your tile and mottle supervisor as scheduled.Follow-up in 3 months, sooner if [...] 0 units at this time 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 Trujillo at [facility] for evaluation Related to Hematuria, unspecified [...] identified. 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
--- OUTSIDE RECORDS SUMMARY | 2024-10-27 10:47 | XMS_ITS | Clinical Summary ---
Author Organization [facility] Wong johnston [facility] Address [address] [place] [address] Care Team Providers Care Business Management Manager Name Role Phone Unavailable Primary Care Provider [...] Description 12/16/2024 3:00 PM CDT Office Visit [facility] Oncology and Hematology - [facility] [facility] [address] [place] [address] Iron Cunningham MD [address] [facility] [address] [place] [address] Health Maintenance Due Date Last Done Comments DTAP/TDAP/TD VACCINES (1 - Tdap) 12/31/1966 PNEUMOCOCCAL VACCINE 50+ YEARS (1 of 1 - PCV) 12/31/18 98 ZOSTER VACCINE (1 of 2) 12/31/1997 RSV VACCINE (60+ or ) (1 - 1-dose 75+ series) 12/31/2022 INFLUENZA VACCINE (#1) 2024
[2024-10-27 11:45] LABS: Hematocrit 24.4 % (42.0-52.0); Hemoglobin 7.3 g/dL (14.0-18.0); Mean Corpuscular HGB Conc 29.9 g/dl (32-36); Mean Corpuscular Hemoglobin 32.3 pg (26-34); Mean Platelet Volume 8.4 fl (7.4-10.4); Platelet Count Result 275 k/mm3 (150-375); Red Blood Count 2.26 M/mm3 (4.6-6.20); Red Cell Distribution Width 20.2 % (11.5-14.5); White Blood Count 6.4 K/mm3 (4.5-10.0)
== END 2024-10-27 10:38 | disposition home or self-care (01) ==
PROVIDERS: PCP Family Medicine; Visit Provider General Practice
DX: D64.9 Anemia, unspecified (principal)
CPT/HCPCS: 36415; 85027

== ENCOUNTER 2024-11-19 07:30 | Outpatient (RCR) | payer MEDICARE, MEDICAID, SELFPAY ==
[2024-11-19] VITALS (11 sets, daily range): BP systolic 117–129; BP diastolic 38–45; PULSE 66–73; RESP 14–16; TEMP 36.6–37; O2SAT 97–100; BMI 23.6
[2024-11-19 08:29] LABS: Hematocrit 17.1 % (42.0-52.0); Hemoglobin 5.0 g/dL (14.0-18.0)
[2024-11-19] MEDS: FAMOTIDINE 20 MG TABLET PO (09:17)
[2024-11-19] MEDS: diphenhydrAMINE HCl CAP 25 MG CAPSULE PO (09:17)
[2024-11-19] MEDS: ACETAMINOPHEN 325 MG TABLET 650 MG PO (09:17)
== END 2024-12-17 07:25 | disposition home or self-care (01) ==
LOC: ANHCPCTRAN 07:30
PROVIDERS: PCP Family Medicine; Visit Provider Internal Medicine Nephrology
DX: D64.9 Anemia, unspecified (principal)
CPT/HCPCS: 36415; 36430; 85014; 85018; 86850; 86900; 86901; 86923; A9270; P9016

== ENCOUNTER 2024-11-30 07:28 | Outpatient (RCR) | payer MEDICARE, MEDICAID, SELFPAY ==
[2024-11-30] VITALS (10 sets, daily range): BP systolic 119–134; BP diastolic 47–52; PULSE 63–67; RESP 16–20; TEMP 36.1–37; O2SAT 96–100
[2024-11-30 08:19] LABS: Hematocrit 15.3 % (42.0-52.0); Hemoglobin 4.7 g/dL (14.0-18.0)
[2024-11-30] MEDS: diphenhydrAMINE HCl CAP 25 MG CAPSULE PO (09:12)
[2024-11-30] MEDS: FAMOTIDINE 20 MG TABLET PO (09:12)
[2024-11-30] MEDS: SODIUM CHLORIDE 0.9% IV 250 ML 30 ML IV CONT (09:14)
--- NOTE | 2024-11-30 10:22 | PC.NURSE ---
Message left for Dr Ward via his office that pt Hgb 4.7
== END 2024-12-17 07:25 | disposition home or self-care (01) ==
LOC: ANHCPCTRAN 07:28
PROVIDERS: PCP Family Medicine; Visit Provider Internal Medicine Nephrology
DX: D64.9 Anemia, unspecified (principal)
CPT/HCPCS: 36415; 36430; 85014; 85018; 86850; 86900; 86901; 86923; A9270; J7050; P9016

== ENCOUNTER 2024-12-16 15:09 | Outpatient (CLI) | payer MEDICARE, MEDICAID, SELFPAY ==
--- OUTSIDE RECORDS SUMMARY | 2024-12-16 15:12 | XMS_ITS | Clinical Summary ---
Author Organization [facility] Address [address] [place] [address] Care Team Providers Care Multiple Needle Stitcher Name Role Phone Chandler Geronimo DO Primary [...] by mouth daily. Active epoetin rosette-epbx (RETACRIT) 94170 Units/mL injectionIndications:E nd Stage Renal Disease on Hemodialysis Inject 1 mL (10,000 Units total) into the skin 3 (three) times a week. Indications: Halfway Kidney Failure Treated with Hemodialysis On Friday, Friday and Friday with hemodialysis 12 mL 025 Active allopurinol (ZYLOPRIM) 100 MG tabletIndications:Hype ruricemia Take 1 tablet (100 mg total) by mouth 3 (three) times a week. On Friday, Friday and Friday after hemodialysis 12 tablet 025 Active furosemide (LASIX) 40 MG tabletIndications:ESRD (end stage renal disease) on dialysis ([facility]) Take 3 tablets (120 mg total) by mouth 2 (two) times a day, 3 (three) days a week. Take 3 tablets (120 mg total) two times a day on non-dialysis days (Friday, Friday, and Friday) 96 tablet 025 Active B kgiujnu-V-ihgac acid 0.8 mg (DIALYVITE/NEPHRO-ROIMNA ) Tab tabletIndications:End stage renal disease ([facility]) Take 1 tablet by mouth daily. [...] 15 ml/min ([facility]),Secondary hyperparathyroidism (HHS/HCC),Primary hypertension,Hyperkale abbie Take 1 tablet (4 mg total) by mouth nightly at bedtime. 90 tablet 3 025 Active ferrous sulfate, 65 mg elemental, 325 (65 FE) MG tabletIndications:CKD (chronic kidney disease) stage 5, GFR less than 15 ml/min ([facility]),Secondary hyperparathyroidism (HHS/HCC),Primary hypertension,Hyperkale abbie Take 1 tablet (325 mg total) by mouth daily with breakfast. 90 tablet 3 025 Active Active Problems Problem Noted Date Diagnosed Date Atrial fibrillation with RVR ([facility]) 0 08/24/2024 Diastolic heart failure ([facility]) 2024 ESRD (end stage renal diseas e) on dialysis ([facility]) 06/01/2024 GIB (gastrointestinal bleeding) 05/27/2024 Hyperlipidemia 12/23/2022 Iron deficiency anemia 10/21/2022 LEANDRO (acute kidney injury) 10/11/2022 Anemia due to chronic renal failure treated with erythropoietin, unspecified CKD stage 10/10/2022 CKD (chronic kidney disease) stage 4, GFR 15-29 ml/min ([facility]) 11/22/2021 Albuminuria 10/08/2021 Vitamin D insufficiency 08/30/2021 Acidosis 07/16/2021 Hyperuricemia 07/16/2021 Anemia in stage 5 chronic ki dney disease, not on chronic dialysis ([facility]) 06/28/2021 Primary hypertension 06/28/2021 Type 2 diabetes mellitus wit h stage 5 chronic kidney disease not on chronic dialysis, unspecified whether long term care pharmacist insulin use ([facility]) 06/28/2021 ANCA-associated vasculitis ([facility]) Edema, unspecified type 06/28/2021 Acute kidney injury 05/29/2021 Resolved Problems Problem Noted Date Diagnosed Date Resolved Date Pneumonia 06/13/2021 06/19/2021 Encounters Date Type Department Care Team Description 10/08/2024 Telephone [place], [facility] [address] [place] [address] Layton Herrera MD Referral ([facility] FOR PD CATH) 10/07/2024 Orders Only [facility] Medical [facility] Multispecialty Care - [facility] [address] [facility], [facility] [address] [place] [id number] Christiana Goel LPN 10/07/2024 Telephone [facility] [place] [address] [place] [phone] David Hamilton MD Error 10/06/2024 2:00 PM CDT Office Visit [facility], [facility] [address] [place] [address] Layton Herrera MD Follow Up 10/06/2024 Travel from Last 3 Months Immunizations Immunization Administration Dates Next Due Influenza (Generic) 05/03/2024,02/18/2014 Influenza Adult (Generic) 04/17/2023,04/05/2021 PFIZER COVID-19 (ORIGINAL FO RMULATION, PURPLE CAP) mRNA, LNP-S, PF, 30 MCG/0.3 ML DOSE 12/22/2021,10/04/2020 Pneumococcal (Pneumovax 23) 02/19/2024, 4,06/20/2013 Pneumococcal (Prevnar 13) 11/26/2017 Pneumococcal (Prevnar 20) 05/03/2024 Tdap (Generic) 08/27/2016,02/25/2016 Zoster (Zostavax) 09490 Unt/0.65Ml 02/25/2016 Family History Medical History Relation [...] drink = 0.6 oz pur e alcohol) [facility] Utilities Answer Date Recorded In the past 12 months has e [employer], gas, oil, or water [employer] threatened to shut off services in your [...] declined 10/10/2022 How often do you attend christianity or presybeterian serv ices? Patient declined 10/10/2022 Do you belong to any clubs o r organizations such as christianity groups, unions, fraternal or athletic groups, or [...] Patient Health Questionnaire-2 Score 0 07/26/2024 [facility] - Occupational [...] in a intermediate (including now)? No 10/10/2022 Housing Stability Vital Sign Answer [place] e Recorded In the last 12 months, was t here a time when you were not able to pay the mortgage or rent on time? No 08/24/2024 In the past 12 months, how m any times have you moved where you were living? 0 08/24/2024 At any time in the past 12 m [facility], were you homeless or living in a intermediate (including now)? 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 on cindy e Not on file [...] 2:06 PM CDT Height 175.3 cm (5' 9) 10/06/2024 2:06 PM CDT Body Mass Index [...] (10 Years) Discontinued 05/29/2024, 05/28/2024 PHQ-2 (Physician [place]) Completed 07/26/2024 Colorectal Cancer Screening FIT/FOBT (1 [...] perform ADLs independently Lifestyle No El Vaughn, supervisor computer operations - family caregiver with be involved in care transitions and discharge planning Lifestyle No Abby Eng, electrical tryout person Procedure Name Priority Date/Time Associated Diagnosis Comments OCCULT BLOOD, FECES Routine 08/28/2024 1 1:48 AM CDT HEMOGLOBIN, GLYCOSYLATED Routine 08/25/2024 6:44 AM CDT COLONOSCOPY Routine 05/28/2024 12:12 PM BUSINESS SERVICES DIRECTOR LIPID PANEL Routine 10/12/2022 7:06 AM CDT HEPATITIS PANEL,ACUTE Routine 05/30/2021 1:20 PM BUSINESS SERVICES DIRECTOR from Last 3 Months or Most Recently Relevant to Health Maintenance Results * (ABNORMAL) OCCULT BLOOD, FECES (08/28/2024 11:48 AM CDT) Pathologist [facility] OCCULT BLOOD FECAL POSITIVE(A ) NEGATIVE 08/28/2024 12:57 PM CDT [facility] STOOL SPECIMEN / Unknown 08/28/2024 11:48 AM CDT us David Hamliton MD BODY FLUIDS AND STOOLS ORDERAB LES Final Result [facility] [address] [place] [address], [place] [phone] * (ABNORMAL) HEMOGLOBIN, GLYCOSYLATED (08/25/2024 6:44 AM CDT) HGB A1C 5.9(H) <5.7 % 08/25/2024 9:03 AM CDT [facility] Comment: ADA GUIDELINES 2010 5.7 TO 6.4% INCREASED RISK OF DIABETES > OR = 6.5% CONSISTENT WITH DIABETES ESTIMATED AVG GLUCOSE 123 mg/dL 08/25/2024 9:03 AM CDT [facility] 08/25/2024 6:44 AM CDT Joann Sherman NP LABORATORY Final Result [facility] [address] [place] [address], * (ABNORMAL) LIPID PANEL (10/12/2022 7:06 AM CDT) CHOLESTEROL 110 <200 MG/DL 10/12/2022 8:01 AM CDT [facility] TRIGLYCERIDES 134 <150 MG/DL 10/12/2022 8:01 AM CDT [facility] HDL 35(L) >40.0 MG/DL 10/12/2022 8:01 AM CDT [facility] LDL (CALCULATED) 48 <100 MG/DL 10/13/19 8:01 AM CDT [facility] NON HDL CHOLESTEROL 75 <130 MG/DL 10/12 8:01 AM CDT [facility] CHOL/HDL RATIO 3.1 0.0 - 4.5 10/12/2022 8:01 AM CDT [facility] VLDL CALCULATION 27 5 - 55 MG/DL 10/12/2022 8:01 AM T [facility] LIPID INTERPRETATION 10/12/2022 8:01 AM T [facility] Comment: NIH CONCENSUS REPORT RECOMMENDATIONS: ADULT CHILD LOW RISK: CHOLESTEROL <200 <170 TRIGLYCERIDE <150 --- HDL >=60 --- LDL <100 <110 BORDERLINE: CHOLESTEROL 200-239 170-199 TRIGLYCERIDE 150-199 --- HDL 40-59 --- LDL 100-159 110-129 HIGH RISK: CHOLESTEROL >=240 >=200 TRIGLYCERIDE >=200 --- HDL <40 --- LDL >=160 >=130 10/12/2022 7:06 AM CDT Josseline Tabares MD LABORATORY Final Result Performing Organization Address City/[facility]/ZIP Co de Phone Number [facility] [address] [place] [address], [place] [phone] * HEPATITIS PANEL,ACUTE (05/30/2021 1:20 PM BUSINESS SERVICES DIRECTOR) HEPATITIS B SURFACE AG NON-REACTI VE NON-REACTI VE 05/30/2021 3:16 PM BUSINESS SERVICES DIRECTOR [facility] HEP B CORE IGM NON-REACTI VE NON-REACTI VE 05/30/2021 3:16 PM BUSINESS SERVICES DIRECTOR [facility] HAV IGM NON-REACTI VE NON-REACTI VE 05/30/2021 3:16 PM BUSINESS SERVICES DIRECTOR [facility] HEPATITIS C AB NON-REACTI VE NON-REACTI VE 05/30/2021 3:16 PM BUSINESS SERVICES DIRECTOR [facility] 05/30/2021 1:20 PM BUSINESS SERVICES DIRECTOR us David Hamilton MD LABORATORY Final Result Performing Organization Address City/[facility] Co de Phone Number [facility] [address] [place] [address], [place] [phone] from Last 3 Months or Most Recently [...] 11:22 PM 06/03/2021 3:03 PM Care Teams Multiple Needle Stitcher Relationship Specialty Start Date End Date Chandler Geronimo DO [address] [place] [phone] PCP - General FAMILY PRACTICE 05/29/21
--- OUTSIDE RECORDS SUMMARY | 2024-12-16 15:12 | XMS_ITS | Encounter Summary ---
Author Organization [facility] Address [address] [place] [address] Care Team Providers Care Sales Engineering Manager Name Role Phone Chandler Geronimo DO Primary Care Provide r Encounter Details Date Type Department Care Team (Late st Contact Info) Description 07/28/2024 Vertro Message Enc [facility] [address] [address] Filippo, [facility] Provider Orders Social History Tobacco Use Types Packs/Day Years Used Date Smoking Tobacco: Never Smokeless Tobacco: Never Alcohol Use Standard Drinks/Week Comments Never 0 (1 standard drink = 0.6 oz pur e alcohol) [facility] Utilities Answer Date Recorded In the past 12 months has [facility] [employer], oil, or water [employer] threatened to shut off services in your [...] declined 10/10/2022 How often do you attend evangelical or mandaeism serv ices? Patient declined 10/10/2022 Do you belong to any clubs o r organizations such as evangelical groups, unions, fraternal or athletic groups, or [...] Recorded Patient Health Questionnaire-2 Score 0 07/26/2024 [facility] [...] place to sleep or slept in a chcf (including now)? No 10/10/2022 Housing Stability Vital [...] were you homeless or living in a chcf (including now)? 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
--- OUTSIDE RECORDS SUMMARY | 2024-12-16 15:12 | XMS_ITS | Encounter Summary ---
Author Organization [facility] - [facility] Address [address] [place] [address] Care Team Providers Care Desktop Publishing Operator Name Role Phone Chandler Geronimo DO Primary Care Provide r Encounter Details Date Type Department Care Team (Late st Contact Info) Description 09/01/2024 MyChart Message Enc [facility] Medical Group Multispecialty Care - [facility] [address] [facility], [facility] [address] [place] [address] David Hamilton MD 3 [facility], [facility] [address] [place] [address] question Social History Tobacco Use Types Packs/Day Years Used Date Smoking Tobacco: Never Smokeless Tobacco: Never Alcohol Use Standard Drinks/Week Comments Never 0 (1 standard drink = 0.6 oz pur e alcohol) [facility] Utilities Answer Date Recorded In the [...] How often do you attend nondenominational or scientologist serv ices? Patient declined 10/10/2022 Do you [...] Recorded Patient Health Questionnaire-2 Score 0 07/26/2024 [facility] [employer] [facility] Occupat ional Health - Occupational Stress [...] place to sleep or slept in a usp (including now)? No 10/10/2022 Housing Stability Vital [...] time in the past 12 m [facility], were you homeless or living in a usp (including now)? 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
--- OUTSIDE RECORDS SUMMARY | 2024-12-16 15:12 | XMS_ITS | Encounter Summary ---
Author Organization [facility] Address [address] [place] [address] Care Team Providers Care Whiskey Filterer Name Role Phone Unavailable Primary Care Provider Unavailabl e Encounter Details Date Type Department Care Team (Late st Contact Info) Description 12/16/2024 3:00 PM CDT Office Visit [facility] Oncology and Hematology - [facility] [address] [facility] [address] [place] [address] Iron Cunningham MD [address] [facility] [address] [place] [address] Chronic anemia (Primary Dx) Social History Tobacco Use Types Packs/Day Years Used Date Smoking Tobacco: Former Cigarettes 0.5 30 0 12/17/1987 - 12/16/2017 Smokeless Tobacco: Never Tobacco Cessation:Counseling Given: Not Answered Alcohol Use Standard Drinks/Week Comments Never 0 (1 standard drink = 0.6 oz pur e alcohol) Sex and Gender Information Value Date Recorded Sex Assigned at Not on file Legal Sex Male 12:30 PM CDT Gender Identity Not on file Sexual Orientation Not on file documented as of this encounter Last Filed Vital Signs Vital Sign Reading Time Taken Comments Blood Pressure 123/55 12/16/2024 2:32 PM CDT Pulse 64 12/16/2024 2:28 PM CDT Temperature 37.1 C (98.8 F) 12/16/2024 2:28 PM CDT Respiratory Rate 16 12/16/2024 2:28 PM CDT Oxygen Saturation 93% 12/16/2024 2:28 PM CDT Inhaled Oxygen Concentration - - Weight 78.7 kg (173 lb 9.6 oz) 12/16/2024 2:28 P M CDT Height 177.8 cm (5' 10) 12/16/2024 2:28 PM CDT Body Mass Index 24.91 12/16/2024 2:28 PM CDT documented in this encounter Plan of Treatment Upcoming Encounters Date Type Department Care Team (Late st Contact Info) Description 12/30/2024 4:30 PM CDT Telephone Check Up [facility] Oncology and Hematology - [facility] [address] [facility] [address] [place] [address] Iron Cunningham MD [address] [facility] [address] [place] [address] Scheduled Orders Name Type Priority Associated Diagnoses Orde r Schedule CBC WITH DIFFERENTIAL Lab Stat Chronic anemia Expected: 12/16/2024, Expires: 12/16/2025 COMPREHENSIVE METABOLIC PANEL Lab Stat Chronic anemia Expected: 12/16/2024, Expires: 12/16/2025 ERYTHROPOIETIN LEVEL Lab Routine Chronic anemia Expected: 12/16/2024, Expires: 12/16/2025 FERRITIN Lab Routine Chronic anemia Expected: 12/16/2024, Expires: 12/16/2025 IRON, TIBC, AND PERCENT SATURATION Lab Routine Chronic anemia Expected: 12/16/2024, Expires: 12/16/2025 TRANSFERRIN RECEPTOR TFR SOLUBLE Lab Routine Chronic anemia Expected: 12/16/2024, Expires: 12/16/2025 VITAMIN B12 AND FOLATE Lab Routine Chronic anemia Expected: 12/16/2024, Expires: 12/16/2025 IMMUNOGLOBULINS IGG IGA IGM Lab Routine Chronic anemia Expected: 12/16/2024, Expires: 12/16/2025 PROTEIN ELECTROPHORESIS W/REFLEX,SERUM Lab Routine Chronic anemia Expected: 12/16/2024, Expires: 12/16/2025 KAPPA/LAMBDA, FREE LIGHT CHAINS Lab Routine Chronic anemia Expected: 12/16/2024, Expires: 12/16/2025 documented as of this encounter Visit Diagnoses Diagnosis Chronic anemia- Primary Anemia, unspecified documented in this encounter
--- OUTSIDE RECORDS SUMMARY | 2024-12-16 15:12 | XMS_ITS | Encounter Summary ---
Author Organization [facility] Address [address] [place] [address] Care Team Providers Care Head Of Data Name Role Phone Chandler Geronimo DO Primary Care Provide r Encounter Details Date Type Department Care Team (Late st Contact Info) Description 10/21/2022 Therapy Plan [facility] Infusion Services [address] [place] [phone] David Hamilton MD 3 [facility], [place] [phone] Social History Tobacco Use Types Packs/Day Years [...] How often do you attend uatsdin or shinto serv ices? Patient declined 10/10/2022 Do you [...] Recorded Patient Health Questionnaire-2 Score 0 10/21/2022 [facility] - Occupational [...] in a mcc (including now)? No 10/10/2022 Sex and Gender Information Value Date Recorded Sex Assigned at Male 07/22/2024 2:00 PM INDUSTRIAL PHOTOGRAPHER Legal Sex Male 2:48 PM INDUSTRIAL PHOTOGRAPHER Gender Identity Not on file Sexual Orientation [...] independent in ADLs upon discharge from hospital [facility] Aline Russell RN Health - patient able to perform ADLs independently Lifestyle No El Vaughn RN documented as of this encounter Visit Diagnoses Diagnosis Iron deficiency anemia- Primary Iron deficiency anemia, unspecified documented in this encounter Additional Health Concerns Assessment Noted Time PHQ-9 Depression Total Score: 0 03/14/20 3:10 PM CDT documented as of this encounter Care Teams Head Of Data Relationship Specialty Start Date End Date Chandler Geronimo DO [address] [place] [phone] PCP - General FAMILY PRACTICE 05/29/21 documented as of this encounter
--- OUTSIDE RECORDS SUMMARY | 2024-12-16 15:13 | XMS_ITS | Encounter Summary ---
Author Organization [facility] Address [address] [place] [address] Care Team Providers Care Fiberglass Roller Name Role Phone Chandler Geronimo DO Primary Care Provide r Encounter Details Date Type Department Care Team (Late st Contact Info) Description 01/10/2022 Therapy Plan [facility] Infusion Services [address] [place] [phone] David Hamilton MD 3 [facility], [address] [phone] Social History Tobacco Use Types Packs/Day Years [...] Sex Assigned at Male 07/22/2024 2:00 PM ASSEMBLER FILTERS Legal Sex Male 2:48 PM ASSEMBLER FILTERS Gender Identity Not on file Sexual Orientation [...] Assessment Author Status No 06/13/2021 2:44 AM ASSEMBLER FILTERS Activ e * RETIRED Are you blind or do you have serious difficulty seeing, even when wearing glasses? Answer Date of Assessment Author Status No 06/13/2021 2:44 AM ASSEMBLER FILTERS Activ e * Do you have serious [...] documented as of this encounter Care Teams Fiberglass Roller Relationship Specialty Start Date End Date Chandler Geronimo DO [address] [place] [phone] PCP - General FAMILY PRACTICE 05/29/21 documented as of this encounter
--- OUTSIDE RECORDS SUMMARY | 2024-12-16 15:13 | XMS_ITS | Clinical Summary ---
Author Organization [facility] Address [address] [place] [address] Care Team Providers Care Helicopter Pilot Instructor Name Role Phone Unavailable Primary Care Provider Unavailabl e Allergies No known active allergies Medications allopurinoL (ZYLOPRIM) 100 mg tablet Take 100 mg by mouth daily. 09/01/2024 Active amiodarone (CORDARONE) 400 mg Tablet Take 200 mg by mouth daily. 09/01/2024 Active aspirin (ECOTRIN EC) 81 mg Tablet, Delayed Release (E.C.) Take 81 mg by mouth daily. Active atorvastatin (LIPITOR) 40 mg tablet Take 80 mg by mouth daily. 09/11/2024 Active calcitRIOL (ROCALTROL) 0.25 mcg capsule Take 0.5 mcg by mouth daily. 07/27/2024 Active calcium as CARBONATE (TUMS) 500 mg (200 mg elemental) Tablet, Chewable Take 500 mg by mouth. 09/01/2024 Active ferrous sulfate 325 mg (65 mg iron) tablet Take 325 mg by mouth daily with breakfast. 10/07/2024 Active metoprolol tartrate (LOPRESSOR) 25 mg tablet Take 25 mg by mouth 2 times daily. 09/01/2024 Active pantoprazole (PROTONIX) 40 mg Tablet, Delayed Release (E.C.) Take 40 mg by mouth daily. 08/11/2024 Active sodium bicarbonate 650 mg tablet Take 650 mg by mouth daily. Active vitamin B complex-vitamin C-Folic Acid (Dialyvite 800) 0.8 mg Tablet Take 1 Tablet by mouth daily. Active calcium CITRATE-vitamin D3 (CITRACAL D MAX) 315 mg-6.25 mcg (250 unit) Tablet Take by mouth daily. Active doxazosin (CARDURA) 4 mg tablet Take 4 mg by mouth. 10/07/2024 Active Active Problems No known active problems Encounters Date Type Department Care Team Description 12/16/2024 3:00 PM CDT Office Visit [facility] Oncology and Hematology - [address] [place] [phone] Iron Cunningham MD Chronic anemia (Primary Dx) from Last 3 Months Family History Medical History Relation Name Comments No Known Problems Child 1 No Known Problems Child 2 No Known Problems Child 3 No Known Problems Child 4 No Known Problems Father No Known Problems Mother No Known Problems Sister Relation Name Status Comments Child 1 Alive Child 2 Alive Child 3 Alive Child 4 Alive Father Mother Sister Alive Social History Tobacco Use Types Packs/Day Years [...] Mass Index 24.91 12/16/2024 2:28 PM CDT Plan of Treatment Upcoming Encounters Date Type Department Care Team (Late st Contact Info) Description 12/30/2024 4:30 PM CDT Telephone Check Up [facility] Oncology [facility] Hematology [address] [place] [phone] Iron Cunningham MD [address] [facility] [address] [place] [phone] Health Maintenance Due Date Last Done Comments ZOSTER VACCINE (2 of 3) 04/21/2016 02/25/2016 RSV VACCINE (60+ or ) (1 - 1-dose 75+ series) 12/31/2022 Medicare Advantage ([place]) Preventative Visit/Annual Wellness Visit 06/02/2024 INFLUENZA VACCINE (#1) 2024 DTAP/TDAP/TD VACCINES (3 - T d or Tdap) 08/27/2026 08/27/2016, 02/25/2016 PNEUMOCOCCAL VACCINE 50+ YEARS Completed 1 07/04/2023, 02/19/2024, 11/26/2017, Additional history exists Insurance [employer]ET[employer] O [facility]
--- OUTSIDE RECORDS SUMMARY | 2024-12-16 15:13 | XMS_ITS | Encounter Summary ---
Author Organization [facility] Address [address] [place] [address] Care Team Providers Care Solar Installer Name Role Phone Chandler Geronimo DO Primary Care Provide r Encounter Details Date Type Department Care Team (Late st Contact Info) Description 07/16/[address] [facility] Infusion Services [address] [place] [phone] David Hamilton MD 3 [facility], [address] [phone] Social History Tobacco Use Types Packs/Day Years Used Date Smoking Tobacco: Never Smokeless Tobacco: Never Alcohol Use Standard Drinks/Week Comments Never 0 (1 standard drink = 0.6 oz pur e alcohol) Sex and Gender Information Value Date Recorded Sex Assigned at Male 07/22/2024 2:00 PM MARKETING RESEARCH INTERN Legal Sex Male 2:48 PM MARKETING RESEARCH INTERN Gender Identity Not on file Sexual Orientation Not on file COVID-19 Exposure Response Date Recorded In the last 10 days, have yo u been in contact with someone who was confirmed or suspected to have Coronavirus/COVID-19? No / Unsure 07/16/2021 3:48 PM MARKETING RESEARCH INTERN documented as of this encounter Functional Status * RETIRED Are you deaf or do you have serious difficulty hearing Answer Date of Assessment Author Status No 06/13/2021 2:44 AM MARKETING RESEARCH INTERN Activ e * RETIRED Are you blind or do you have serious difficulty seeing, even when wearing glasses? Answer Date of Assessment Author Status No 06/13/2021 2:44 AM MARKETING RESEARCH INTERN Activ e * Do you have serious [...] upon discharge from hospital General No Aline Krishan RN documented as of this encounter Visit Diagnoses Diagnosis Anemia in stage 5 chronic kidney disease, not on chronic dialysis ([facility])- Primary documented in this encounter Care Teams Solar Installer Relationship Specialty Start Date End Date Chandler Geronimo DO [address] [place] [phone] PCP - General FAMILY PRACTICE 05/29/21 documented as of this encounter
--- OUTSIDE RECORDS SUMMARY | 2024-12-16 15:13 | XMS_ITS | Clinical Summary ---
Author Organization [facility] Address [address] [place] [address] Care Team Providers Care L Tacker Name Role Phone Unavailable Primary Care Provider Unavailabl e Source Comments [facility],non-owned Affiliates and Associated Physician Practices is amultiple site organization consisting of ambulatory clinics and hospital sitesin [place], [place], [place] and [place]. This disclosure is being madepursuant to the Care Everywhere program and may not contain all information available regarding this patient. Last updated 18.[facility] Allergies No known active allergies Medications * [...] on file Legal Sex Male 11:54 AM FREIGHT TRAFFIC CONSULTANT Gender Identity Not on file Sexual Orientation Not on file Last Filed Vital Signs Vital Sign [place] Time Taken Comments Blood Pressure 113/89 06/17/2011 5:40 PM FREIGHT TRAFFIC CONSULTANT Pulse 67 06/17/2011 9:53 PM FREIGHT TRAFFIC CONSULTANT Temperature 36.3 C (97.3 F) 06/17/2011 5:40 PM FREIGHT TRAFFIC CONSULTANT Respiratory Rate 16 06/17/2011 5:40 PM FREIGHT TRAFFIC CONSULTANT Oxygen Saturation 95% 06/17/2011 9:53 PM FREIGHT TRAFFIC CONSULTANT Inhaled Oxygen Concentration - - Weight 91.6 kg (202 lb) 06/17/2011 5:40 PM FREIGHT TRAFFIC CONSULTANT Height 177.8 cm (5' 10) 06/17/2011 5:40 PM FREIGHT TRAFFIC CONSULTANT Body Mass Index 28.98 06/17/2011 5:40 PM FREIGHT TRAFFIC CONSULTANT Plan of Treatment Health Maintenance Due Date Last Done Comments PNEUMOCOCCAL VACCINE 50+ (1 of 2 - PCV) 12/31/1966 HEPATITIS B VACCINE (1 of 3 - Risk Dialysis 4-dose series) 1968 ZOSTER VACCINE (1 of 2) 12/31/1997 DTAP/TDAP/TD VACCINES (2 - Tdap) 06/17/2021 06/17/2011 Respiratory Syncytial Virus (RSV) Vaccine Pt: or over 60 yrs (1 - 1-dose 75+ series) 12/31/2022 COVID-19 VACCINE (3 - season) 2024 12/22/2021, 10/04/2020 DEPRESSION SCREENING 06/02/2024 INFLUENZA VACCINE (#1) 2025 , 04/17/2023, 04/05/2021, Additional history exists HEPATITIS C SCREENING [...] on patient's age to complete this topic Insurance * Guarantor: Bulmaro Cook Account Type Relation to Patient Date of Phone Billing Address Personal/Family Self 1950 [phone] (Work) [address] [place] [address] AETNA MEDICARE ADV MEDICAID [place] Advance Directives * FULL RESUSCITATION (Latest Code Status on File) Date Activated Date Inactivated Comments 11/20/2010 1:48 PM 11/21/2010 5:57 AM
--- OUTSIDE RECORDS SUMMARY | 2024-12-16 15:13 | XMS_ITS | Encounter Summary ---
Author Organization [facility] Address [address] [place] [address] Care Team Providers Care Vegetable Harvest Worker Name Role Phone Chandler Geronimo DO Primary Care Provide r Reason for Referral * Surgical (Routine) - New Request Specialty Diagnoses / Procedures Referred By Hazel t Referred To Contact Diagnoses ESRD (end stage renal disease) on dialysis ([facility]) Procedures Case request operating room: BRACHIAL CEPHALIC ARTERIOVENOUS FISTULA OR TRANSPOSITION BASILIC VEIN (LEFT ARM) Layton Herrera MD [facility]. [facility] [address] [place] [address] Phone: tel: fax: Referral ID Status Reason Start Date Expiration Date V isits Requested Visits Authorized [id number] New Request 06/01/2024 06/01/2025 1 1 NCIAL MARKET DEALER Encounter Details Date Type Department Care Team (Late st Contact Info) Description 06/01/2024 Prep for Procedure [facility] [place] [address] [place] [address] Layton Herrera MD [facility]. [facility] [address] [place] [address] Social History Tobacco Use Types Packs/Day Years Used Date Smoking Tobacco: Never Smokeless Tobacco: Never Alcohol Use Standard Drinks/Week Comments Never 0 (1 standard drink = 0.6 oz pur e alcohol) [facility] Utilities Answer Date Recorded In the past [...] declined 10/10/2022 How often do you attend muslim or gnosticism serv ices? Patient declined 10/10/2022 Do you belong to any clubs o r organizations such as muslim groups, unions, fraternal or athletic groups, or [...] Recorded Patient Health Questionnaire-2 Score 0 01/05/2024 [facility] - Occupational Stress Questionnaire Answer Date Recorded [...] any time in the past 12 m [facility], were you homeless or living in a senior living (including now)? 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 Author Patient will return to prior living situation and remain independent in ADLs upon discharge from hospital General Aline Russell, RN Health - patient able to perform ADLs independently Lifestyle No El Vaughn, commissioning agent - family caregiver with be involved in care transitions and discharge planning Lifestyle No Abby Eng RN documented as of this encounter Visit Diagnoses Diagnosis ESRD (end stage renal disease) on dialysis ([facility])- Primary End stage renal disease documented in this encounter Additional Health Concerns Assessment Noted Time PHQ-9 Depression Total Score: 0 03/14/20 22 3:10 PM CDT documented as of this encounter Care Teams Vegetable Harvest Worker Relationship Specialty Start Date End Date Chandler Geronimo DO [address] [place] [phone] PCP - General FAMILY PRACTICE 05/29/21 documented as of this encounter
[2024-12-16 15:32] LABS: Immature Granulocyte Percent A 0.3 % (0-0.5); Lymphocytes Absolute Auto 0.46 K/mm3 (0.9-3.2); Mean Corpuscular HGB Conc 29.6 g/dl (32-36); Mean Corpuscular Hemoglobin 30.9 pg (26-34); Mean Corpuscular Volume 104.2 fl (80-100); Nucleated Red Blood Cells Absolute Auto 0.000 K/mm3 (0.0-0.012); Nucleated Red Blood Cells Perc 0.0 % (0.0-0.2); Platelet Count Result 255 k/mm3 (150-375); Red Blood Count 1.91 M/mm3 (4.6-6.20); White Blood Count 6.8 K/mm3 (4.5-10.0)
[2024-12-16 15:35] LABS: Hematocrit 19.9 % (42.0-52.0); Hemoglobin 5.9 g/dL (14.0-18.0)
[2024-12-16 15:48] LABS: Anisocytosis 2+; Ovalocytes 1+; Schistocytes None Seen
[2024-12-16 15:49] LABS: Hypochromasia 1+
[2024-12-16 16:38] LABS: Alanine Aminotransferase 21 U/L (6-50); Albumin Level 3.3 g/dL (3.5-5.1); Alkaline Phosphatase 147 U/L (38-126); Anion Gap 8 mmol/L (4-12); Aspartate Amino Transferase 37 U/L (17-59); Bilirubin,Total 0.3 mg/dL (0.2-1.3); Blood Urea Nitrogen 43 mg/dL (9-20); Calcium 8.4 mg/dL (8.4-10.2); Carbon Dioxide 32 mmol/L (22-30); Chloride 97 mmol/L (98-107); Estimated Glomerular Filt Rate 18; Glucose 123 mg/dL (65-110); Potassium 4.1 mmol/L (3.4-5.0); Sodium 137 mmol/L (137-145); Total Protein 5.8 g/dL (6.3-8.2)
[2024-12-16 18:48] LABS: Iron 195 ug/dL (49-181)
[2024-12-16 18:58] LABS: Percent Iron Saturation 80 % (20-50)
[2024-12-16 19:33] LABS: Ferritin 186.00 ng/mL (11.1-264)
[2024-12-16 20:36] LABS: Immunoglobulin A 54 mg/dL (70-400); Immunoglobulin G 634 mg/dL (700-1600); Immunoglobulin M 95 mg/dL (40-230)
[2024-12-16 22:03] LABS: Vitamin B12 926.0 pg/mL (239-931)
[2024-12-17 15:09] LABS: Albumin 3.1 g/dL (2.9-4.4); Alpha-1-Globulin 0.2 g/dL (0.0-0.4); Alpha-2-Globulin 0.8 g/dL (0.4-1.0); Gamma Globulin 0.5 g/dL (0.4-1.8)
== END 2024-12-16 15:10 | disposition home or self-care (01) ==
PROVIDERS: PCP Family Medicine; Visit Provider Internal Medicine Hematology & Oncology
DX: D64.9 Anemia, unspecified (principal)
CPT/HCPCS: 36415; 80053; 82607; 82668; 82728; 82746; 82784; 83540; 83550; 84165; 84238; 85025

== ENCOUNTER 2024-12-17 07:31 | Outpatient (RCR) | payer MEDICARE, MEDICAID, SELFPAY ==
[2024-12-17 08:57] VITALS: TEMP 36.8
[2024-12-17] MEDS: ACETAMINOPHEN 325 MG TABLET 650 MG PO (08:57)
[2024-12-17] MEDS: diphenhydrAMINE HCl CAP 25 MG CAPSULE PO (08:58)
[2024-12-17] MEDS: SODIUM CHLORIDE 0.9% IV 250 ML 30 ML IV CONT (08:58)
[2024-12-17 09:04] VITALS: BP 150/54; PULSE 73; RESP 18; TEMP 36.8; O2SAT 100
[2024-12-17 09:19] VITALS: BP 148/52; PULSE 71; RESP 18; TEMP 37.2; O2SAT 98
[2024-12-17 10:19] VITALS: BP 152/48; PULSE 73; RESP 16; TEMP 36.8; O2SAT 98
[2024-12-17 10:56] VITALS: BP 135/43; PULSE 66; RESP 17; TEMP 36.7; O2SAT 98
== END 2025-03-17 23:59 | disposition home or self-care (01) ==
LOC: ANHCPCTRAN 07:31
PROVIDERS: PCP Family Medicine; Visit Provider Internal Medicine Hematology & Oncology
DX: D64.9 Anemia, unspecified (principal)
CPT/HCPCS: 36415; 36430; 86850; 86900; 86901; 86923; A9270; J7050; P9016

== ENCOUNTER 2025-03-28 15:21 | Outpatient (CLI) | payer MEDICARE, MEDICAID, SELFPAY ==
--- NOTE | ~2025-03-28 | XR_ITS ---
EXAMINATION: XR chest 2V, 03/28/2025 15:45 CDT HISTORY: dyspnea on exertion/PT WEARING HEART MONITOR (UNREMOVABLE) COMPARISON: No comparisons available. Technique: 2 views obtained. Findings: Moderate basilar infiltrates and effusions. Mild pulmonary venous congestion. No pneumothorax. Heart is normal size. Mediastinal and hilar contours are within normal limits. Bony thorax no acute abnormality. Impression: Bilateral pneumonia. Reviewed, dictated and finalized at location P. Impression: Bilateral pneumonia.
--- OUTSIDE RECORDS SUMMARY | 2025-03-28 14:30 | XMS_ITS | Encounter Summary ---
Author Organization [facility] Healthcare Address [address] [place] [address] Care Team Providers Care Cargo Services Coordinator Name Role Phone Chandler Geronimo DO Primary Care Prov ider Reason for Visit * Reason Comments Shortness of Breath Anemia Anticoagulation Encounter Details Date Type Department Care Team (Late st Contact Info) Description 03/28/2025 2:30 PM CDT Office Visit [facility] Cardiology [address] [place] [address] Billy Ardon NP [address] [place] [address] Dyspnea on exertion (Primary Dx); Anemia due to chronic kidney disease, on chronic dialysis (HCC); Pulmonary hypertension (HCC); History of recent pneumonia; Encounter for anticoagulation discussion and counseling; Paroxysmal atrial fibrillation (HCC) Social History Tobacco Use Types Packs/Day Years Used Date Smoking Tobacco: Former Cigarettes Sex and Gender Information Value Date Recorded Sex Assigned at Not on file Legal Sex Male 5:28 PM CLOTHING CUTTER Gender Identity Not on file Sexual Orientation Not on file documented as of this encounter Last Filed Vital Signs Vital Sign Reading Time Taken Comments Blood Pressure 128/66 03/28/2025 2:21 PM CDT Pulse 68 03/28/2025 2:21 PM CDT Temperature - - Respiratory Rate - - Oxygen Saturation 96% 03/28/2025 2:21 PM CDT Inhaled Oxygen Concentration - - Weight 81.2 kg (179 lb 1.6 oz) 03/28/2025 2:21 P M CDT Height 175.3 cm (5' 9) 03/28/2025 2:21 PM CDT Body Mass Index 26.45 03/28/2025 2:21 PM CDT documented in this encounter Progress Notes * Billy Ardon NP - 03/28/2025 2:30 PM CDT Images from the original note were not included. [facility] [address] [place] [address] Date of Visit: 03/28/2025 Patient ID: Bulmaro Gamez 1950 Chief Complaint Patient presents with Shortness of Breath Anemia Anticoagulation Bulmaro Gamez is a 75 y.o. male who is an established patient of Dr. Myers with a history of pericardial effusion and PAF coming to the office for re- evaluation of his shortness of breath and also another discussion regarding LAAO device. History of Present Illness: Bulmaro Gamez is a 75 y.o. 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 He has not had any significant exertional chest discomfort. He does have some sharp chest pain when he takes deep breaths which canoccur when he is mowing the grass or doing some strenuous physical activity. Denies any syncopal events. He does have some shortness of breath especially when he lays in supine position. He is in the process of following with oncology for bone marrow biopsy given his severe anemia. 03/28/2025 office visit with HOME CARE SPECIALIST: He returns to the office for sooner follow-up because his shortness of breath. He is also here for another discussion of the Amulet LAAO device. His daughter accompanies him providing translation as well as part of the history. His dyspnea on exertion has gotten worse since we last saw him. When he walks he gets short of breath, feels weak and his legs her. When he gets up at night to go to the bathroom he asked to sit for a while and catch his breath before he lays back down. His last hemoglobin was around 7. His bone marrow biopsy was negative. Blood pressure readings over the last few days have ranged 122/48 to 145/54. Medical History: Past Medical History: Diagnosis Date COVID-19 Hypertension No past surgical history on file. Social History Tobacco Use Smoking Status Former Types: Cigarettes Smokeless Tobacco Not on file Social History Tobacco Use Smoking status: Former Types: Cigarettes Smokeless tobacco: Not on file Substance and Sexual Activity Drug use: Not on file Sexual activity: Not on file Alcohol Use: Not At Risk (10/10/2022) Received from [facility] AUDIT-C Q1: How often do you have a drink containing alcohol?: Never Q2: How many drinks containing alcohol do you have on a typical day when you are drinking?: Patientdoes not drink Q3: How often do you have six or more drinks on one occasion?: Never No family history on file. Review of Systems Constitutional: Positive for malaise/fatigue. Negative for weight gain and weight loss. Cardiovascular: Positive for dyspnea on exertion and orthopnea. Negative for chest pain, leg swelling, near-syncope, palpitations, paroxysmal nocturnal dyspnea and syncope. Respiratory: Negative for cough and sleep disturbances due to breathing. Hematologic/Lymphatic: Negative for bleeding problem. Does not bruise/bleed easily. Neurological: Positive for focal weakness (bilateral legs when walking). Vital Signs: BP 128/66 (BP Location: Right arm, Patient Position: Sitting) Pulse 68 Ht 175.3 cm (5' 9) Wt81.2 kg (179 lb 1.6 oz) SpO2 96% BMI 26.45 kg/m?? Physical Exam Constitutional: General: He is not in acute distress. Appearance: He is well-developed. Comments: Seated in wheelchair HENT: Head: Normocephalic and atraumatic. Eyes: General: No scleral icterus. Conjunctiva/sclera: Conjunctivae normal. Neck: Vascular: No JVD. Trachea: No tracheal deviation. Cardiovascular: Rate and Rhythm: Normal rate and regular rhythm. Heart sounds: Murmur heard. Pulmonary: Effort: Pulmonary effort is normal. No respiratory distress. Breath sounds: Examination of the right-lower field reveals decreased breath sounds. Examination ofthe left-lower field reveals decreased breath sounds. Decreased breath sounds present. Skin: General: Skin is warm and dry. Neurological: Mental Status: He is alert and oriented to person, place, and time. Psychiatric: Mood and Affect: Mood normal. Behavior: Behavior normal. No Known Allergies Current Outpatient Medications: allopurinoL (ZYLOPRIM) 100 mg tablet, Take 1 tablet (100 mg total) by mouth 3 (three) times a week,Disp: , Rfl: amiodarone (PACERONE) 200 mg tablet, Take 1 tablet (200 mg total) by mouth daily, Disp: 90 tablet, Rfl: 3 amLODIPine (NORVASC) 10 mg tablet, Take 1 tablet (10 mg total) by mouth daily, Disp: , Rfl: aspirin 81 mg enteric coated tablet, Take 1 tablet (81 mg total) by mouth daily, Disp: , Rfl: atorvastatin (LIPITOR) 40 mg tablet, Take 1 tablet (40 mg total) by mouth daily (Patient taking differently: Take 0.5 tablets (20 mg total) by mouth daily), Disp: , Rfl: calcitRIOL (ROCALTROL) 0.25 mcg capsule, Take 2 capsules (0.5 mcg total) by mouth daily (Patient taking differently: Take 1 capsule (0.25 mcg total) by mouth 2 (two) times a day), Disp: , Rfl: doxazosin (CARDURA) 4 mg tablet, Take 1 tablet (4 mg total) by mouth nightly, Disp: , Rfl: ferrous sulfate 325 mg (65 mg of elemental iron) tablet, Take 1 tablet (325 mg total) by mouth daily, Disp: , Rfl: furosemide (LASIX) 40 mg tablet, Take 3 tablets (120 mg total) by mouth, Disp: , Rfl: metoprolol tartrate (LOPRESSOR) 25 mg immediate release tablet, Take 1 tablet (25 mg total) by mouth 2 (two) times a day (Patient taking differently: Take 1 tablet (25 mg total) by mouth daily), Disp: , Rfl: pantoprazole DR (PROTONIX) 40 mg EC tablet, Take 1 tablet (40 mg total) by mouth daily, Disp: , Rfl: sodium bicarbonate 650 mg tablet, Take 1 tablet (650 mg total) by mouth daily, Disp: , Rfl: No results found for: POTASSIUM, BUNSER, CREATININE, EGFR, CHOL, TRIG, LDL, LDLCALC, HDL No results found for: WBC, HGB, HCT, MCV, PLT No results found for this or any previous visit (from the past 4 hours). No results found for: POCCHOL, POCHDL, POCTRIG, POCLDL, POCNONHDL, POCCHLPL Assessment: Diagnoses and all orders for this visit: Dyspnea on exertion (Primary) - XR Chest Pa Lateral 2 Views; Future Anemia due to chronic kidney disease, on chronic dialysis (HCC) Pulmonary hypertension (HCC) History of recent pneumonia Encounter for anticoagulation discussion and counseling Plan/Recommendations: His recent echocardiogram showed only a trivial pericardial effusion and the patient and family were reassured that this is not the reason for his dyspnea on exertion. It is most likely a combinationof his significant anemia and evidence of the pulmonary hypertension seen on his echocardiogram which may indicate volume overload from insufficient dialysis. I will send a copy of the echo to his child protection specialist and the daughter will ask if more fluid can be removed with dialysis. Due to his history of recent pneumonia and the diminished lung sounds at bases, I will send him over to radiology department for a chest x-ray PA and lateral this afternoon. He has a history of PAF with a chads Vasc score of 4 and a has bled score of 4. Due to his history of anemia, GI bleed and pericardial effusion, the risk of a dangerous bleeding problem if using oralanticoagulation seems prohibitive. The patient appears to be an appropriate candidate for LAAO device. A shared decision-making process was pursued: The patient was given a copy of the ACC's ???A decision aid for AFib stroke prevention for patients with atrial fibrillation, for patients with very high risk in [place]. Dr. [place] Myers had a discussion with the patient and family about this at separate office visit and the patient spoke to EP providers during his admission at [facility] . Risk Tools CHADS-VASC Condition Points C Congestive Heart Failure 0 H Hypertension (SBP >160) 1 A Age > 75 2 D Diabetes Mellitus 1 S Prior stroke, TIA, thromboembolism 0 V Vascular disease (PAD, MS) 0 A Age 65-74 0 Sc Sex category (Female) 0 Total Points 4 HAS-BLED Condition Points H Hypertension 1 A Abnormal renal or liver function (1 pt each) 1 S Stroke 0 B Bleeding history or disposition 1 L Labile INR 0 E Elderly (age > 65) 1 D Current drugs (medication) or alcohol use (1 pt each) 0 Total Points 4 03/28/2025 Billy Ardon ANP-BC Nurse Practitioner with [facility] Cardiology This note is dictated and transcribed using [employer]. Accounts Payable Associate variancesmay occur. Despite proofreading, typographical errors may occur. documented in this encounter Miscellaneous Notes * Addendum Note - Billy Ardon NP - 03/28/2025 2:30 PM CDTAddended by: BILLY ARDON on: 03/28/2025 04:23 PM Modules accepted: Orders documented in this encounter Plan of Treatment Scheduled Orders Name Type Priority Associated Diagnoses Orde r Schedule XR Chest Pa Lateral 2 Views Imaging Routine Dyspnea on exertion Expected: 03/28/2025, Expires: 04/28/2025 documented as of this encounter Visit Diagnoses Diagnosis Dyspnea on exertion- Primary Other dyspnea and respiratory abnormality Anemia due to chronic kidney disease, on chronic dialysis (HCC) Pulmonary hypertension (HCC) Other chronic pulmonary heart diseases History of recent pneumonia Encounter for anticoagulation discussion and counseling Paroxysmal atrial fibrillation (HCC) Atrial fibrillation documented in this encounter Orders Appointment Requests Count Last Ordered Date Fi rst Ordered Date AMB REF TO STRUCTURAL HEART PROCEDURES 1 documented in this encounter Care Teams Cargo Services Coordinator Relationship Specialty Start Date End Date Chandler Geronimo DO PCP - General Family Medicine 06/07/21 documented as of this encounter
--- OUTSIDE RECORDS SUMMARY | 2025-03-28 16:54 | XMS_ITS | Encounter Summary ---
Author Organization [facility] Address [address] [place] [address] Care Team Providers Care Brick Pointer Name Role Phone Chandler Geronimo DO Primary Care Provide r Encounter Details Date Type Department Care Team (Late st Contact Info) Description 03/28/2025 Orders Only [facility] [address] [address] Non-Staff, Provider Social History Tobacco Use Types Packs/Day Years Used Date Smoking Tobacco: Never Smokeless Tobacco: Never Alcohol Use Standard Drinks/Week Comments Never 0 (1 standard drink = 0.6 oz pur e alcohol) [facility] Utilities Answer Date Recorded In the past 12 months has isocket, gas, oil, or water [employer] threatened to shut off services in your [...] No 08/24/2024 Social Connection and Isolation Panel Answer Date Recorded In a typical week, how many times do you talk on the phone with family, friends, or neighbors? Patient declined 10/10/2022 How often do you get togethe r with friends or relatives? Patient declined 10/10/2022 How often do you attend zoroastrian or tenriism serv ices? Patient declined 10/10/2022 Do you belong to any clubs o r organizations such as zoroastrian groups, unions, fraternal or athletic groups, or [...] Recorded Patient Health Questionnaire-2 Score 0 07/26/2024 [facility] - Occupational [...] any time in the past 12 m [facility], were you homeless or living in a senior care (including now)? 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
--- OUTSIDE RECORDS SUMMARY | 2025-03-28 16:54 | XMS_ITS | Clinical Summary ---
Author Organization [facility] Address [address] [place] [address] Care Team Providers Care Rock Room Worker Name Role Phone Chandler Geronimo DO Primary Care Prov ider Allergies No known active allergies Medications amLODIPine (NORVASC) 10 mg tablet Take 1 tablet (10 mg total) by mouth daily 2 Active allopurinoL (ZYLOPRIM) 100 mg tablet Take 1 tablet (100 mg total) by mouth 3 (three) times a week 5 Active atorvastatin (LIPITOR) 40 mg tablet Take 1 tablet (40 mg total) by mouth daily 5 Active furosemide (LASIX) 40 mg tablet Take 3 tablets (120 mg total) by mouth 5 Active metoprolol tartrate (LOPRESSOR) 25 mg immediate release tablet Take 1 tablet (25 mg total) by mouth 2 (two) times a day 5 Active sodium bicarbonate 650 mg tablet Take 1 tablet (650 mg total) by mouth daily Active calcitRIOL (ROCALTROL) 0.25 mcg capsule Take 2 capsules (0.5 mcg total) by mouth daily 5 Active ferrous sulfate 325 mg (65 mg of elemental iron) tablet Take 1 tablet (325 mg total) by mouth daily Active doxazosin (CARDURA) 4 mg tablet Take 1 tablet (4 mg total) by mouth nightly 5 Active aspirin 81 mg enteric coated tablet Take 1 tablet (81 mg total) by mouth daily Active amiodarone (PACERONE) 200 mg tablet Take 1 tablet (200 mg total) by mouth daily 90 tablet [address] (PROTONIX) 40 mg EC tablet Take 1 tablet (40 mg total) by mouth daily 5 Active Active Problems Problem Noted Date Diagnosed Date Paroxysmal atrial fibrillation 01/20/2025 COVID-19 06/07/2021 Encounters Date Type Department Care Team Description 03/28/2025 2:30 PM CDT Office Visit [facility] Cardiology [address] [place] [address] [place] [phone] Anika Nielsen NP Dyspnea on exertion (Primary Dx); Anemia due to chronic kidney disease, on chronic dialysis (HCC); Pulmonary hypertension (HCC); History of recent pneumonia; Encounter for anticoagulation discussion and counseling; Paroxysmal atrial fibrillation (HCC) 03/28/2025 Telephone [place] [address] [place] [phone] North Myers MD 03/25/2025 Results Follow-Up [place] [address] [place] [phone] Corinne Walter, RN Transthoracic Echo (TTE) Limited/Followup 03/24/2025 1:00 PM CDT Ancillary Procedure [place] [address] [place] [phone] Pericardial effusion 03/22/2025 1:30 PM CDT Ancillary Procedure [place] [address] [place] [phone] Paroxysmal atrial fibrillation (HCC) 03/16/2025 Telephone [place] [address] [place] [phone] North Myers MD LAAO 01/20/2025 1:15 PM CDT Office Visit [place] [address] [place] [phone] North Myers MD Paroxysmal atrial fibrillation (HCC) (Primary Dx) from Last 3 Months Medical History Medical History Date Comments Hypertension Covid-19 Social History Tobacco Use Types Packs/Day Years Used Date Smoking Tobacco: Former Cigarettes Tobacco Cessation:Counseling Given: Not Answered Sex and Gender Information Value Date Recorded Sex Assigned at Not on file Legal Sex Male 5:28 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 Gender Identity Not on file Sexual Orientation Not on file Obstetrics History Last Filed Vital Signs Vital Sign Reading Time Taken Comments Blood Pressure 128/66 03/28/2025 2:21 PM CDT Pulse 68 03/28/2025 2:21 PM CDT Temperature 36.8 C (98.2 F) 06/07/2021 3:50 PM DRYING SUPERVISOR Respiratory Rate 16 01/20/2025 1:13 PM CDT Oxygen Saturation 96% 03/28/2025 2:21 PM CDT Inhaled Oxygen Concentration - - Weight 81.2 kg (179 lb 1.6 oz) 03/28/2025 2:21 P M CDT Height 175.3 cm (5' 9) 03/28/2025 2:21 PM CDT Body Mass Index 26.45 03/28/2025 2:21 PM CDT Plan of Treatment Health Maintenance Due Date Last Done Comments Depression Screening 1950 Fall Risk Assessment 1950 Hepatitis C Screening 1950 Well Visit 65+ 12/31/2012 Zoster Vaccine (2 of 3) 04/21/2016 02/25/2016 Influenza Vaccine (#1) 2025 , 04/17/2023, 04/05/2021, Additional history exists DTaP/Tdap/Td Vaccine (4 - Td or Tdap) 08/27/2026 08/27/2016, 02/25/2016, 06/17/2011 Pneumococcal vaccine 65+ Completed 024, 11/26/2017, 02/18/2014, Additional history exists Hepatitis B Screening Completed 01/13/2025 , 12/09/2024, 11/09/2024 Procedures Procedure Name Priority Date/Time Associated Diagnosis Comments TRANSTHORACIC ECHO (TTE) LIMITED/FOLLOW UP W LTD DOPPLER/CF WO CONTRAST Routine 03/24/2025 1:44 PM CDT Pericardial effusion from Last 3 Months Results * TRANSTHORACIC ECHO (TTE) LIMITED/FOLLOW UP W LTD DOPPLER/CF WO CONTRAST (03/24/2025 1:44 PM CDT) Estimated EF 60-65 % CONS SCIMAGE EF Mod BP 58 % CONS SCIMAGE Anatomical Region Laterality Modality Ultrasound 03/24/2025 1:13 PM CDT Narrative 03/24/2025 3:58 PM CDT [facility] Medical Group Cardiology [address], [place] [address] [address] [facility] [address], [place] [address] P:[phone] P:[phone] Echocardiographic Report Patient Name: JAYLEEN VERONICA : 1950 Study Date: 03/24/2025 1:13:29 PM Sex: M Staff Registered Nurse: Mildred Fischer (R)(CT), [facility] Location: [place] Ref Provider: NORTH MYERS Height(Cm): 175 BSA: 1.96 Weight(Kg): 79.4 Heart Rate: 66 BP: 118 / 48 Quality: Good Order Provider: NORTH MYERS PROCEDURES: Echocardiographic Report: Limited Transthoracic Echocardiogram with Complete 2D, and Color Doppler Examination. With Strain Analysis. INDICATIONS: I31.39 Other pericardial effusion (noninflammatory). MEASUREMENTS: 2D/MM Value Range Doppler Value Range EF Mod BP 58 % [ 52 - 72 ] MAUREEN Vmax 1.72 cm2 [ 2.00 - 4.00 ] Estimated EF 60-65 % AV Mean PG 11 mmHg LV GLS -17.14 % AV Peak Pranav 2.25 m/s [ 1.00 - 1.70 ] LVIDd 2D 6.10 cm [ 4.20 - 5.80 ] AV Peak PG 20 mmHg LVIDs 2D 4.14 cm [ 2.50 - 4.00 ] AV VTI 55.79 cm LVPWd 2D 1.15 cm [ 0.60 - 1.00 ] LVOT Diam 1.96 cm [ 1.70 - 2.10 ] IVSd 2D 1.14 cm [ 0.60 - 1.00 ] LVOT Peak Pranav 1.29 m/s [ 0.70 - 1.10 ] LVOT VTI 32.09 cm TR Peak Pranav 3.84 m/s [ 1.00 - 2.80 ] TR Peak PG 59 mmHg 2D/MM Value Range Doppler Value Range - FINDINGS: Interpretation Site: Exam was interpreted at [facility]. Left Ventricle: Normal left ventricular systolic function. No focal wall motion abnormalities. Mild concentric left ventricular hypertrophy. Mild enlargement of left ventricle cavity. There is pseudonormal diastolic dysfunction Grade II. Ejection fraction is measured at 58 %. Ejection Fraction is visually estimated to be 60-65 %. Global Longitudinal Strain is -17 %. GLS is borderline. Right Ventricle: Normal right ventricular size. Normal right ventricular systolic function. Left Atrium: There is mild enlargement of left atrium. Right Atrium: The right atrium is normal in size. Atrial Septum: Normal atrial septum. Mitral Valve: Mild mitral annular calcification. Moderate mitral valve regurgitation. Aortic Valve: Mild aortic stenosis. Mean gradient of 11.0 mmHg. Valve area of 1.7 cm2. Aortic cusps appear mildly restricted. Trace aortic valve regurgitation. Tricuspid Valve: Normal appearance of the tricuspid valve. Severe pulmonary hypertension based on right ventricular systolic pressure. Estimated peak RVSP is 70-75 mmHg. Moderate tricuspid regurgitation. Pulmonic Valve: Pulmonic valve not well visualized. Pericardium: Trivial pericardial effusion. Aorta: Sinus of Valsalva is normal. IVC: Dilated inferior vena cava with poor inspiratory collapse consistent with elevated right atrial pressures. CONCLUSIONS: Normal left ventricular systolic function. No focal wall motion abnormalities. Mild concentric left ventricular hypertrophy. Mild enlargement of left ventricle cavity. There is pseudonormal diastolic dysfunction Grade II. Ejection fraction is measured at 58 %. Ejection Fraction is visually estimated to be 60-65 %. Global Longitudinal Strain is -17 %. GLS is borderline. There is mild enlargement of left atrium. Mild mitral annular calcification. Moderate mitral valve regurgitation. Mild aortic stenosis. Mean gradient of 11.0 mmHg. Valve area of 1.7 cm2. Aortic cusps appear mildly restricted. Trace aortic valve regurgitation. Severe pulmonary hypertension based on right ventricular systolic pressure. Estimated peak RVSP is 70-75 mmHg. Moderate tricuspid regurgitation. Trivial pericardial effusion. Normal sinus rhythm. Electronically Signed By: Amado Estes MD 03/24/2025 3:57:49 PM CDT Procedure Note Amado Estes MD - 03/24/2025 [facility] Medical Group Cardiology [address], [place] [address] [address] [facility] [address], [place] [address] P:[phone] P:[phone] Echocardiographic Report Patient Name: JAYLEEN VERONICA : 1950 Study Date: 03/24/2025 1:13:29 PM Sex: M Staff Registered Nurse: Mildred Fischer (R)(CT), [facility] Location: [facility] Provider: NORTH MYERS Height(Cm): 175 BSA: 1.96 Weight(Kg): 79.4 Heart Rate: 66 BP: 118 / 48 Quality: Good Order Provider: NORTH MYERS PROCEDURES: Echocardiographic Report: Limited Transthoracic Echocardiogram with Complete 2D, and Color DopplerExamination. With Strain Analysis. INDICATIONS: I31.39 Other pericardial effusion (noninflammatory). MEASUREMENTS: 2D/MM Value Range Doppler ValueRange EF Mod BP 58 % [ 52 - 72 ] MAUREEN Vmax 1.72 cm2[ 2.00 - 4.00 ] Estimated EF 60-65 % AV Mean PG 11 mmHg LV GLS -17.14 % AV Peak Pranav 2.25 m/s[ 1.00 - 1.70 ] LVIDd 2D 6.10 cm [ 4.20 - 5.80 ] AV Peak PG 20 mmHg LVIDs 2D 4.14 cm [ 2.50 - 4.00 ] AV VTI 55.79 cm LVPWd 2D 1.15 cm [ 0.60 - 1.00 ] LVOT Diam 1.96 cm[ 1.70 - 2.10 ] IVSd 2D 1.14 cm [ 0.60 - 1.00 ] LVOT Peak Pranav 1.29 m/s[ 0.70 - 1.10 ] LVOT VTI 32.09 cm TR Peak Pranav 3.84 m/s [ 1.00 - 2.80 ] TR Peak PG 59 mmHg 2D/MM Value Range Doppler ValueRange - FINDINGS: Interpretation Site: Exam was interpreted at [facility]. Left Ventricle: Normal left ventricular systolic function. No focal wall motionabnormalities. Mild concentric left ventricular hypertrophy. Mild enlargement of leftventricle cavity. There is pseudonormal diastolic dysfunction Grade II. Ejection fraction ismeasured at 58 %. Ejection Fraction is visually estimated to be 60-65 %. Global LongitudinalStrain is -17 %. GLS is borderline. Right Ventricle: Normal right ventricular size. Normal right ventricular systolicfunction. Left Atrium: There is mild enlargement of left atrium. Right Atrium: The right atrium is normal in size. Atrial Septum: Normal atrial septum. Mitral Valve: Mild mitral annular calcification. Moderate mitral valve regurgitation. Aortic Valve: Mild aortic stenosis. Mean gradient of 11.0 mmHg. Valve area of 1.7 cm2.Aortic cusps appear mildly restricted. Trace aortic valve regurgitation. Tricuspid Valve: Normal appearance of the tricuspid valve. Severe pulmonary hypertensionbased on right ventricular systolic pressure. Estimated peak RVSP is 70-75 mmHg. Moderatetricuspid regurgitation. Pulmonic Valve: Pulmonic valve not well visualized. Pericardium: Trivial pericardial effusion. Aorta: Sinus of Valsalva is normal. IVC: Dilated inferior vena cava with poor inspiratory collapse consistent withelevated right atrial pressures. CONCLUSIONS: Normal left ventricular systolic function. No focal wall motionabnormalities. Mild concentric left ventricular hypertrophy. Mild enlargement of leftventricle cavity. There is pseudonormal diastolic dysfunction Grade II. Ejection fraction ismeasured at 58 %. Ejection Fraction is visually estimated to be 60-65 %. Global LongitudinalStrain is -17 %. GLS is borderline. There is mild enlargement of left atrium. Mild mitral annular calcification. Moderate mitral valve regurgitation. Mild aortic stenosis. Mean gradient of 11.0 mmHg. Valve area of 1.7 cm2.Aortic cusps appear mildly restricted. Trace aortic valve regurgitation. Severe pulmonary hypertension based on right ventricular systolicpressure. Estimated peak RVSP is 70-75 mmHg. Moderate tricuspid regurgitation. Trivial pericardial effusion. Normal sinus rhythm. Electronically Signed By: Amado Estes MD 03/24/2025 3:57:49 PM CDT North Myers MD CV ECHO PROCEDURES Final Result from Last 3 Months Insurance [employer] MEDICARE GOLD Care Teams Rock Room Worker Relationship Specialty Start Date End Date Chandler Geronimo DO PCP - General Family Medicine 06/07/21
--- OUTSIDE RECORDS SUMMARY | 2025-03-28 16:54 | XMS_ITS | Encounter Summary ---
Author Organization [facility] Healthcare Address [address] [place] [address] Care Team Providers Care Billing And Accounting Staff Assistant Name Role Phone BrauliozebCarleen Kotharirick Yanni ALEX Primary Care Prov ider Encounter Details Date Type Department Care Team (Late st Contact Info) Description 03/28/2025 Telephone [facility] Medical Group Cardiology [address] [place] [address] North Myers MD [address] [facility] [address] [facility] [address] [place] [address] Social History Tobacco Use Types Packs/Day Years Used Date Smoking Tobacco: Former Cigarettes Sex and Gender Information Value Date Recorded Sex Assigned at Not on file Legal Sex Male 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 Scheduled pt on 04/11 at 3 pm at V. Contact [phone] * Telephone Encounter - Lainey Stuart - 03/28/2025 3:44 PM CDT ok'd by to add on the patient April 11 anytime between 11am -3pm [place] with patient's daughter Teri with this information . documented in this encounter Plan of Treatment Not on file documented as of this encounter Visit Diagnoses Not on filedocumented in this encounter Care Teams Billing And Accounting Staff Assistant Relationship Specialty Start Date End Date Chandler Geronimo DO PCP - General Family Medicine 06/07/21 documented as of this encounter
--- OUTSIDE RECORDS SUMMARY | 2025-03-28 16:54 | XMS_ITS | Encounter Summary ---
Author Organization [facility] Address [address] [place] [address] Care Team Providers Care Accounting Professional Name Role Phone Chandler Geronimo DO Primary Care Provide r Encounter Details Date Type Department Care Team (Late st Contact Info) Description 07/28/2024 Iris Experience Message Enc [facility] Medical [facility] Neph[facility] [address] [address] Filippo, [facility] Provider Orders Social History Tobacco Use Types Packs/Day Years Used Date Smoking Tobacco: Never Smokeless Tobacco: Never Alcohol Use Standard Drinks/Week Comments Never 0 (1 standard drink = 0.6 oz pur e alcohol) [facility] Utilities Answer Date Recorded In the past 12 months has [facility] [employer], oil, or water [employer] threatened to shut off services in your [...] No 05/28/2024 Social Connection and Isolation Panel Answer Date Recorded In a typical week, how many times do you talk on the phone with family, friends, or neighbors? Patient declined 10/10/2022 How often do you get togethe r with friends or relatives? Patient declined 10/10/2022 How often do you attend synagogue or anglican serv ices? Patient declined 10/10/2022 Do you belong to any clubs o r organizations such as synagogue groups, unions, fraternal or athletic groups, or [...] Recorded Patient Health Questionnaire-2 Score 0 07/26/2024 [facility] of Occupat ional Health - Occupational Stress [...] place to sleep or slept in a penitentiary (including now)? No 10/10/2022 Housing Stability Vital [...] were you homeless or living in a penitentiary (including now)? 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
--- OUTSIDE RECORDS SUMMARY | 2025-03-28 16:54 | XMS_ITS | Encounter Summary ---
Author Organization [facility] Address [address] [place] [address] Care Team Providers Care Hoof And Shoe Inspector Name Role Phone Chandler Geronimo DO Primary Care Provide r Encounter Details Date Type Department Care Team (Late st Contact Info) Description 01/10/2022 Therapy Plan [facility] Infusion Services [place] [id number] David Hamilton MD [address] [facility], [address] [id number] Social History Tobacco Use Types Packs/Day Years [...] Sex Assigned at Male 07/22/2024 2:00 PM ENDOCRINOLOGY NURSE Legal Sex Male 2:48 PM ENDOCRINOLOGY NURSE Gender Identity Not on file Sexual Orientation [...] Assessment Author Status No 06/13/2021 2:44 AM ENDOCRINOLOGY NURSE Activ e * RETIRED Are you blind or do you have serious difficulty seeing, even when wearing glasses? Answer Date of Assessment Author Status No 06/13/2021 2:44 AM ENDOCRINOLOGY NURSE Activ e * Do you have serious [...] documented as of this encounter Care Teams Hoof And Shoe Inspector Relationship Specialty Start Date End Date Chandler Geronimo DO [address] [place] [phone] PCP - General FAMILY PRACTICE 05/29/21 documented as of this encounter
--- OUTSIDE RECORDS SUMMARY | 2025-03-28 16:54 | XMS_ITS | Encounter Summary ---
Author Organization [facility] Healthcare Address [address] [place] [address] Care Team Providers Care Home Hospice Rn Name Role Phone Chandler Geronimo DO Primary Care Prov ider Encounter Details Date Type Department Care Team (Late st Contact Info) Description 09/08/[address] [facility] Health Information Management [address] [place] [address] Scanning, Provider Social History Tobacco Use Types Packs/Day Years Used Date Smoking Tobacco: Never Assessed Sex and Gender Information Value Date Recorded Sex Assigned at Not on file Legal Sex Male 5:28 PM CLINICAL APPLICATION MANAGER Gender Identity Not on file Sexual Orientation Not on file documented as of this encounter Plan of Treatment Not on file documented as of this encounter Procedures Procedure Name Priority Date/Time Associated Diagnosis Comments CARDIOLOGY DOCUMENT SCAN 09/08/2024 9:28 PM CDT documented in this encounter Results * Cardiology Document Scan (09/08/2024 9:28 PM CDT) Anatomical Region Laterality Modality Other us Provider Scanning CV CARDIAC SERVICES PROCEDURES Final Result documented in this encounter Visit Diagnoses Not on filedocumented in this encounter Care Teams Home Hospice Rn Relationship Specialty Start Date End Date Chandler Geronimo DO PCP - General Family Medicine 06/07/21 documented as of this encounter
--- OUTSIDE RECORDS SUMMARY | 2025-03-28 16:54 | XMS_ITS | Encounter Summary ---
Author Organization [facility] Address [address] [place] [address] Care Team Providers Care Vice President Of Software Development Name Role Phone Chandler Geronimo DO Primary Care Provide r Reason for Referral * Surgical (Routine) - New Request Specialty Diagnoses / Procedures Referred By Hazel t Referred To Contact Diagnoses ESRD (end stage renal disease) on dialysis ([facility]) Procedures Case request operating room: BRACHIAL CEPHALIC ARTERIOVENOUS FISTULA OR TRANSPOSITION BASILIC VEIN (LEFT ARM) Layton Herrera MD [facility]. [facility] [address] [place] [address] Phone: tel: fax: Referral ID Status Reason Start Date Expiration Date V isits Requested Visits Authorized [id number] New Request 06/01/2024 06/01/2025 1 1 ING INSTRUCTOR Encounter Details Date Type Department Care Team (Late st Contact Info) Description 06/01/2024 Prep for Procedure [facility] [facility] [place] [address] [place] [address] Layton Herrera MD [facility]. [facility] [address] [place] [address] Social History Tobacco Use Types Packs/Day Years Used Date Smoking Tobacco: Never Smokeless Tobacco: Never Alcohol Use Standard Drinks/Week Comments Never 0 (1 standard drink = 0.6 oz pur e alcohol) [facility] Utilities Answer Date Recorded In the [...] How often do you attend lutheran or quaker serv ices? Patient declined 10/10/2022 Do you [...] Recorded Patient Health Questionnaire-2 Score 0 01/05/2024 [facility] [place] of Occupat ional Health - Occupational Stress [...] place to sleep or slept in a fci (including now)? No 10/10/2022 Housing Stability Vital [...] in the past 12 m [facility], were you homeless or living in a fci (including now)? 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 Author Patient will return to prior living situation and remain independent in ADLs upon discharge from hospital General Aline Russell, RN Health - patient able to perform ADLs independently Lifestyle No El Vaughn, applications scientist - family caregiver with be involved in care transitions and discharge planning Lifestyle No Abby Eng RN documented as of this encounter Visit Diagnoses Diagnosis ESRD (end stage renal disease) on dialysis ([facility])- Primary End stage renal disease documented in this encounter Additional Health Concerns Assessment Noted Time PHQ-9 Depression Total Score: 0 03/14/20 22 3:10 PM CDT documented as of this encounter Care Teams Vice President Of Software Development Relationship Specialty Start Date End Date Chandler Geronimo DO [address] [place] [phone] PCP - General FAMILY PRACTICE 05/29/21 documented as of this encounter
--- OUTSIDE RECORDS SUMMARY | 2025-03-28 16:54 | XMS_ITS | Clinical Summary ---
Author Organization [facility] Address [address] [place] [address] Care Team Providers Care Director Industrial Nursing Name Role Phone Chandler Geronimo DO Primary [...] by mouth daily. Active epoetin rosette-epbx (RETACRIT) 93027 Units/mL injectionIndications:E nd Stage Renal Disease on Hemodialysis Inject 1 mL (10,000 Units total) into the skin 3 (three) times a week. Indications: Senior Living Kidney Failure Treated with Hemodialysis On Friday, Friday and Friday with hemodialysis 12 mL 025 Active allopurinol (ZYLOPRIM) 100 MG tabletIndications:Hype ruricemia Take 1 tablet (100 mg total) by mouth 3 (three) times a week. On Friday, Friday and Friday after hemodialysis 12 tablet 025 Active furosemide (LASIX) 40 MG tabletIndications:ESRD (end stage renal disease) on dialysis ([facility]) Take 3 tablets (120 mg total) by mouth 2 (two) times a day, 3 (three) days a week. Take 3 tablets (120 mg total) two times a day on non-dialysis days (Friday, Friday, and Friday) 96 tablet 025 Active B gcpamab-S-okhxx acid 0.8 mg (DIALYVITE/NEPHRO-ROMINA ) Tab tabletIndications:End stage renal disease ([facility]) Take 1 tablet by mouth daily. 30 [...] stage 5, GFR less than 15 ml/min ([facility]),Secondary hyperparathyroidism ([facility]HS/HCC),Primary hypertension,Hyperkale abbie Take 1 tablet (4 mg total) by mouth nightly at bedtime. 90 tablet 3 025 Active ferrous sulfate, 65 mg elemental, 325 (65 FE) MG tabletIndications:CKD (chronic kidney disease) stage 5, GFR less than 15 ml/min ([facility]),Secondary hyperparathyroidism (HHS/HCC),Primary hypertension,Hyperkale abbie Take 1 tablet (325 mg total) by mouth daily with breakfast. 90 tablet 3 025 Active Active Problems Problem Noted Date Diagnosed Date Atrial fibrillation with RVR 08/24/2024 Diastolic heart failure 07/22/2024 ESRD (end stage renal disease) on dialysis 06/01 GIB (gastrointestinal bleeding) 05/27/2024 Hyperlipidemia 12/23/2022 Iron deficiency anemia 10/21/2022 LEANDRO (acute kidney injury) 10/11/2022 Anemia due to chronic renal failure treated with erythropoietin, unspecified CKD stage 10/10/2022 CKD (chronic kidney disease) stage 4, GFR 15-29 ml/min 11/22/2021 Albuminuria 10/08/2021 Vitamin D insufficiency 08/30/2021 Acidosis 07/16/2021 Hyperuricemia 07/16/2021 Anemia in stage 5 chronic ki dney disease, not on chronic dialysis 06/28/2021 Primary hypertension 06/28/2021 Type 2 diabetes mellitus wit h stage 5 chronic kidney disease not on chronic dialysis, unspecified whether intermission coordinator insulin use 06/28/2021 ANCA-associated vasculitis 06/28/2021 Edema, unspecified type 06/28/2021 Acute kidney injury 05/29/2021 Resolved Problems Problem Noted Date Diagnosed Date Resolved Date Pneumonia 06/13/2021 06/19/2021 Encounters Date Type Department Care Team Description 03/28/[address] [facility] [place] [id number] Non-Staff, Provider from Last 3 Months Immunizations Immunization Administration Dates Next Due Influenza (Generic) 05/03/2024,02/18/2014 Influenza Adult (Generic) 04/17/2023,04/05/2021 PFIZER COVID-19 (ORIGINAL FO RMULATION, PURPLE CAP) mRNA, LNP-S, PF, 30 MCG/0.3 ML DOSE 12/22/2021,10/04/2020 Pneumococcal (Pneumovax 23) 02/19/2024, 4,06/20/2013 Pneumococcal (Prevnar 13) 11/26/2017 Pneumococcal (Prevnar 20) 05/03/2024 Tdap (Generic) 08/27/2016,02/25/2016 Zoster (Zostavax) 49366 Unt/0.65Ml 02/25/2016 Family History Medical History Relation [...] drink = 0.6 oz pur e alcohol) [facility] Utilities Answer Date Recorded In the past 12 months has e [employer], gas, oil, or water [employer] threatened to shut off services in your [...] declined 10/10/2022 How often do you attend taoist or church serv ices? Patient declined 10/10/2022 Do you belong to any clubs o r organizations such as taoist groups, unions, fraternal or athletic groups, or [...] Recorded Patient Health Questionnaire-2 Score 0 07/26/2024 [facility] - Occupational Stress [...] a care home (including now)? No 10/10/2022 Housing Stability [...] any time in the past 12 m [facility], were you homeless or living in a care home (including now)? 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 [employer] Not on cindy e Not on file [...] - 1-dose 75+ series) 12/31/2022 Lipid Panel 10/19/2024 10/20/2023, 09/30, 11/12/2021, Additional history exists COVID-19 Vaccine (2024- season) 2025 12/22/2021, 10/04/2020, 09/13/2020, Additional history exists Hemoglobin A1C 02/25/2025 08/25/2024, 05/03, 07/24/2023, Additional history exists Influenza Adult (#1) 2025 05/03/2024, 04/17/2023, 04/05/2021, Additional history exists DTaP, Tdap and Td Vaccines (3 - Td or Tdap) 08/27/2026 08/27/2016, 02/25/2016 Hepatitis C Completed 05/30/2021 Pneumococcal Vaccine: 50+ Years Completed 05/03/2024, 02/19/2024, 11/26/2017, Additional history exists Colorectal Cancer Screening Colonoscopy (10 Years) Discontinued 05/29/2024, 05/28/2024 PHQ-2 (Physician [place]) Completed 07/26/2024 Colorectal Cancer Screening FIT/FOBT (1 Year) Discontinued 08/28/2024, 05/27/2024, 10/11/2022 Hepatitis A Vaccines Aged Out No long er eligible based on patient's age to complete this topic Meningococcal B Vaccine Aged Out No l [...] remain independent in ADLs upon discharge from [facility] General Aline Russell, RN Health - patient able to perform ADLs independently Lifestyle No El Vaughn solderer assembler - family caregiver with be involved in care transitions and discharge planning Lifestyle No Abby Eng RN Procedures Procedure Name Priority Date/Time Associated Diagnosis Comments OCCULT BLOOD, FECES Routine 08/28/2024 1 1:48 AM CDT HEMOGLOBIN, GLYCOSYLATED Routine 08/25/2024 6:44 AM CDT COLONOSCOPY Routine 05/28/2024 12:12 PM ELEMENTARY VOCAL MUSIC TEACHER LIPID PANEL Routine 10/12/2022 7:06 AM CDT HEPATITIS PANEL,ACUTE Routine 05/30/2021 1:20 PM ELEMENTARY VOCAL MUSIC TEACHER from Last 3 Months or Most Recently Relevant to Health Maintenance Results * (ABNORMAL) OCCULT BLOOD, FECES (08/28/2024 11:48 AM CDT) OCCULT BLOOD FECAL POSITIVE(A ) NEGATIVE 08/28/2024 12:57 PM CDT [facility] STOOL SPECIMEN / Unknown 08/28/2024 11:48 AM CDT David Hamilton MD BODY FLUIDS AND STOOLS ORDERAB LES Final Result [facility] [address] [place] [id number], [place] [phone] * (ABNORMAL) HEMOGLOBIN, GLYCOSYLATED (08/25/2024 6:44 AM CDT) [facility] HGB A1C 5.9(H) <5.7 % 08/25/2024 9:03 AM CDT [facility] Comment: ADA GUIDELINES 2010 5.7 TO 6.4% INCREASED RISK OF DIABETES > OR = 6.5% CONSISTENT WITH DIABETES ESTIMATED AVG GLUCOSE 123 mg/dL 08/25/2024 9:03 AM CDT [facility] 08/25/2024 6:44 AM CDT Joann Sherman NP LABORATORY Final Result [facility] [address] [place] [address], [place] [phone] * (ABNORMAL) LIPID PANEL (10/12/2022 7:06 AM CDT) [facility] CHOLESTEROL 110 <200 MG/DL 10/12/2022 8:01 AM CDT [facility] TRIGLYCERIDES 134 <150 MG/DL 10/12/2022 8:01 AM CDT [facility] HDL 35(L) >40.0 MG/DL 10/12/2022 8:01 AM T [facility] LDL (CALCULATED) 48 <100 MG/DL 10/13/19 8:01 AM CDT [facility] NON HDL CHOLESTEROL 75 <130 MG/DL 10/12 8:01 AM T [facility] CHOL/HDL RATIO 3.1 0.0 - 4.5 10/12/2022 8:01 AM T [facility] VLDL CALCULATION 27 5 - 55 MG/DL 10/12/2022 8:01 AM T [facility] LIPID INTERPRETATION 10/12/2022 8:01 AM T [facility] Comment: NIH CONCENSUS REPORT RECOMMENDATIONS: ADULT CHILD LOW RISK: CHOLESTEROL <200 <170 TRIGLYCERIDE <150 --- HDL >=60 --- LDL <100 <110 BORDERLINE: CHOLESTEROL 200-239 170-199 TRIGLYCERIDE 150-199 --- HDL 40-59 --- LDL 100-159 110-129 HIGH RISK: CHOLESTEROL >=240 >=200 TRIGLYCERIDE >=200 --- HDL <40 --- LDL >=160 >=130 10/12/2022 7:06 AM CDT us Josseline Tabares MD LABORATORY Final Result [facility] [address] [place] [address], * HEPATITIS PANEL,ACUTE (05/30/2021 1:20 PM ELEMENTARY VOCAL MUSIC TEACHER) HEPATITIS B SURFACE AG NON-REACTI VE NON-REACTI VE 05/30/2021 3:16 PM ELEMENTARY VOCAL MUSIC TEACHER [facility] HEP B CORE IGM NON-REACTI VE NON-REACTI VE 05/30/2021 3:16 PM ELEMENTARY VOCAL MUSIC TEACHER [facility] HAV IGM NON-REACTI VE NON-REACTI VE 05/30/2021 3:16 PM ELEMENTARY VOCAL MUSIC TEACHER [facility] HEPATITIS C AB NON-REACTI VE NON-REACTI VE 05/30/2021 3:16 PM ELEMENTARY VOCAL MUSIC TEACHER [facility] 05/30/2021 1:20 PM ELEMENTARY VOCAL MUSIC TEACHER us David Hamilton MD LABORATORY Final Result [facility] [address] [place] [address], [place] [phone] from Last 3 Months or Most Recently Relevant to Health Maintenance Insurance MEDICAID [employer] MEDICARE Advance Directives * Full Code (Latest Code [...] 11:22 PM 06/03/2021 3:03 PM Care Teams Director Industrial Nursing Relationship Specialty Start Date End Date Chandler Geronimo DO [address] [place] [phone] PCP - General FAMILY PRACTICE 05/29/21
--- OUTSIDE RECORDS SUMMARY | 2025-03-28 16:54 | XMS_ITS | Clinical Summary ---
Author Organization [facility] Wong Holliday Address 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 Role Phone Unavailable Primary Care Provider [...] Encounters Date Type Department Care Team Description 03/23/2025 External Device Data STL ABSTRACTION Provider, Abstract 03/22/2025 External Device Data ST[facility] ABSTRACTION Provider, Abstract 03/08/2025 External Device Data ST[facility] ABSTRACTION Provider, Abstract 02/15/2025 1:15 PM CDT Office Visit [facility] Oncology [facility] Hematology [address] [place] [address] Iron Cunningham MD Chronic anemia (Primary Dx) 02/15/2025 External Device Data STL ABSTRACTION Provider, Abstract 02/15/2025 External Device Data STL ABSTRACTION Provider, Abstract 02/01/2025 External Device Data STL ABSTRACTION Provider, Abstract 01/24/2025 Telephone [facility] Radiology S [facility] [address] [place] [address] Ty Gloria, FACILITY COORDINATOR Follow Up 01/21/2025 12:03 PM CDT Anesthesia Event [facility] Interventional Radiology S [facility] [address] [place] [address] Vincent Ríos DO 01/21/2025 8:58 AM CDT - 01/21/2025 1:51 PM CDT Hospital Encounter [facility] Prepost Imaging [facility] [address] [place] [address] Iron Cunningham MD 4, [facility] Chronic anemia Discharge Disposition: Home or Self Care 01/18/2025 External Device Data STL ABSTRACTION Provider, Abstract 01/18/2025 External Device Data STL ABSTRACTION Provider, Abstract 01/10/2025 Orders Only [facility] [address] [address] [place] [address] Iron Cunningham MD 01/10/2025 Telephone [facility] Oncology and Hematology [facility] [address] [place] [address] Shirin Seymour, RN blood transfusion question (No blood transfusin at this time.) 01/10/2025 Telephone [facility] Oncology and Hematology - [address] [place] [address] Shirin Seymour RN Lab Results 01/05/2025 Orders Only [facility] Oncology [facility] Hematology - [facility] [address] [place] [address] Iron Cunningham MD Chronic anemia (Primary Dx) 12/30/2024 4:30 PM CDT Telephone Check Up [facility] Oncology [facility] Hematology - [facility] [place] [address] Iron Cunningham MD Chronic anemia [...] Sign Reading Time Taken Comments Blood Pressure 133/45 02/15/2025 1:19 PM CDT Pulse 71 02/15/2025 1:17 PM CDT Temperature 36.4 C (97.6 F) 02/15/2025 1:17 PM CDT Respiratory Rate 15 02/15/2025 1:17 PM CDT Oxygen Saturation 90% 02/15/2025 1:17 PM CDT Inhaled Oxygen Concentration - - Weight 77.7 kg (171 lb 6.4 oz) 02/15/2025 1:17 P M CDT Height 177.8 cm (5' 10) 12/16/2024 2:28 PM CDT Body Mass Index 24.59 12/16/2024 2:28 PM CDT Plan of Treatment Upcoming Encounters Date Type Department Care Team (Late st Contact Info) Description 05/12/2025 2:15 PM 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 Office Visit [facility] Oncology and Hematology - [facility] [address] [facility] [address] [facility] [address] [place] [address] Iron Cunningham MD [address] [facility] [address] [place] [address] Health Maintenance Due Date Last Done Comments DIABETES ANNUAL FOOT EXAM 12/31/1965 DIABETES ANNUAL RETINAL EXAM 12/31/1965 DIABETES MICROALBUMIN ANNUAL SCREEN 12/31/1965 LDL CHOLESTEROL ANNUAL 12/31/1965 ZOSTER VACCINE (1 of 2) 04/21/2016 02/25/2016 RSV VACCINE (60+ or ) (1 - 1-dose 75+ series) 12/31/2022 INFLUENZA VACCINE (#1) 2024 05/03/2024 DIABETES HBA1C Q 6 MONTHS 02/25/2025 08/25/2024, DTAP/TDAP/TD VACCINES (3 - T d or Tdap) 08/27/2026 08/27/2016, 02/25/2016 PNEUMOCOCCAL VACCINE 50+ YEARS Completed 1 07/04/2023, 02/19/2024, 11/26/2017, Additional history exists Procedures Procedure Name Priority Date/Time Associated Diagnosis Comments BONE MARROW ASPIRATION & BIOPSY Pathology 01/21/2025 12:17 PM CDT IR BIOPSY BONE MARROW Routine 01/21/2025 12:09 PM CDT Chronic anemia DIFFERENTIAL, MANUAL Stat 01/21/2025 10:06 AM CDT CBC WITH DIFFERENTIAL Stat 01/21/2025 10:06 AM CDT BASIC METABOLIC PANEL Routine 01/21/2025 9:16 AM CDT CBC WITH DIFFERENTIAL Routine 01/10/2025 2:55 PM CDT CBC WITH DIFFERENTIAL Routine 01/10/2025 2:52 PM CDT from Last 3 Months Results * BONE MARROW ASPIRATION & BIOPSY (01/21/2025 12:17 PM CDT) CASE REPORT Bone Marrow Pathology Report Case: [id number] Authorizing Provider: Jayson Henriquez MD Collected: 01/21/2025 12:17 PM Ordering Location: [facility] Interventional Received: 01/21/2025 01:51 PM Radiology [facility] Pathologist: Mayra Moser MD Specimens: A) - Bone marrow, Core, left iliac B) - Bone marrow, Clot, left iliac C) - Bone marrow, left iliac D) - Peripheral Blood Smear E) - Bone marrow, left iliac 9:33 AM CDT [facility] [employer] [facility] ADDENDUM 1 This addendum is issued to report the results of Oncology Chromosome Analysis (see hyperlink below for scan of outside report). Karyotype: 46,XY[20] This addendum is issued to report the results of MDS/CMML Profile NeoTYPE Analysis (see hyperlink below for scan of outside report). - No pathogenic mutations are detected in any of the genes on the NGS panel. - The absence of any pathogenic mutations does not rule out the presence of a myeloid neoplasm. Correlation with morphology, cytogenetics and/or FISH and other diagnostic information is recommended. No cytogenetic or NGS abnormalities are identified in the bone marrow. Although this does not exclude a myelodysplastic syndrome, correlation for other causes of the patient's described macrocytic anemia is suggested. 9:33 AM CDT [facility] Addendum electronically signed by Mayra Moser MD on 02/01/2025 at 0933 CDT FINAL DIAGNOSIS Bone marrow, left iliac, aspiration and core biopsy: - Hypercellular marrow for age (70%) with trilineage hematopoiesis (see diagnosis comment) - Mild dyserythropoiesis - No increase in myeloblasts - Adequate stainable iron (2+/4+) Bone marrow, left iliac, aspiration for flow cytometric analysis: - Negative for a monoclonal B-cell population, abnormal T-cell population, increased blast population or increased/monoclonal plasma cell population 9:33 AM [facility] at [address] [facility] DIAGNOSIS COMMENT The patient is a 70-year-old male with macrocytic anemia. The bone marrow is hypercellular, and there is mild dyserythropoiesis in the bone marrow but no ring sideroblasts are identified. No increased blasts are present. These findings may represent a myelodysplastic syndrome. However, clinical correlation as well as correlation with the submitted cytogenetic studies and MDS/CMML next-generation sequencing analysis is recommended. Cytogenetic studies and MDS/CMML NGS will be reported in an addendum 9:33 AM [facility] GROSS DESCRIPTION The specimen is received in a container labeled Bulmaro Gamez and left iliac. It consists of a 2.0 x 1.6 x 0.2 cm core biopsy which is entirely submitted in A1 after decalcification. A 0.8 x 0.4 x 0.1 cm blood clot is apparent for the bone marrow aspirate is submitted in B1. A portion of the bone marrow aspirate is submitted for flow cytometric analysis, cytogenetic studies and MDS/CMML NGS analysis 9:33 AM [facility] MICROSCOPIC DESCRIPTION The slides are labeled [id number] and Bulmaro Chavez. PERIPHERAL BLOOD SMEAR Review of the peripheral smear is consistent with reported CBC indices of a normal white blood cell count of 5000/per microliter, decreased hemoglobin and hematocrit of 6.2 and 20.8 with an MCV of 101.5 and normal platelet count 240,000/microliter. White blood cell differential includes 70% neutrophils, 12% lymphocytes, 15% monocytes, 3% eosinophils and 1% basophils. The neutrophils lack overt dysplastic features. No blasts are identified. Platelets are unremarkable. Red blood cells are macrocytic with occasional basophilic stippling, target cells and jaskaran cells. Schistocytes are not identified. BONE MARROW ASPIRATE SMEAR Examination of the bone marrow aspirate smear shows show spicules for examination. A 500 cell differential shows 1% blasts, 55% maturing myeloid cells, 40% erythroid progenitors, 3% lymphocytes and 2% plasma cells. The myeloid: erythroid ratio is 1.5: 1.0. Myeloid maturation is mainly normal. Erythroid maturation is mildly dyserythropoietic with occasionalirregular nuclear membranes and rare binucleation. Megakaryocytes are normal in number and occasionally abnormal morphology with hyperlobation. Iron stain of the aspirate smear does not show ring sideroblasts. Iron staining is seen within histiocytes. BONE MARROW CORE AND CLOT The bone marrow core biopsy and clot sections are adequate. The bone marrow core biopsy has variable cellularity, but is overall approximately 70% cellular which is hypercellular for age. Bone trabeculae are unremarkable. The clot section is also hypercellular at approximately 70-75% cellularity overall. Iron stain is performed on the clot section and shows adequate stainable iron (2+/4+). Reticulin stain performed on the core biopsy with mild 1+/3+ reticulin fibrosis. Immunostains are performed on the core biopsy including CD34, CD117, CD31, E-cadherin, CD3, CD20, and CD138. E-cadherin stains approximately one third of cells which are erythroid precursors with interstitial location. CD34 positive in scattered cells representing less than 5% of marrow cellularity. CD138 positive in scattered cells which are single and represent less than 5% of cellularity. CD117 shows scattered positive cells. CD3 is positive in scattered T cells which are interstitial. CD20 positive in rare scattered B cells. 5 9:33 AM [facility] CLINICAL INFORMATION No Dx found. 5 9:33 AM [facility] IMMUNOPHENOTYPIC ANALYSIS Flow cytometric analysis from the left iliac bone marrow aspirate shows a viability of 98% with 6% cells within the lymphocyte region, 78% within the granulocyte region and 8% within the monocyte region. There are 1% CD34 positive myeloblasts and less than 1% plasma cells. B cells represent less than 1% of all cells analyzed by flow symmetric analysis and T cells represent 5% of all cells analyzed by flow cytometric analysis. Of the lymphocytes, 5% are B cells and 75% are T cells. Lymphocytes fall within the small lymphocyte gate. The T cells express CD3 without abnormal loss expression of CD2, CD5 or CD7. The CD4/8 ratio is 1.5. The B cells express CD19 and CD20 with partial coexpression of CD23 and without coexpression of CD5 or CD10. Surface kappa/lambda light chain ratio is polyclonal at 1.2. Thus, there is no evidence involvement of the flow cytometry specimen bone marrow by monoclonal B-cell population, abnormal T-cell population, increased blast population or increased/clonal plasma cell population. 27 flow cytometric markers/antibodies interpreted by pathologist. The technical component only of flow cytometry analysis (27 markers) is performed by [employer] [place], [place]. To view the report, click the link below. 9:33 AM CDT [facility] BM SMEARS AND/OR BIOPSIES 9:33 AM T [facility] COMMENT Special stain, immunohistochemical, and/or in situ hybridization results are interpreted with controls that demonstrate appropriate staining reactions. Note on use of immunohistochemistry reagents and in situ hybridization probes: These tests were developed and their performance characteristics determined by [facility], Department of Laboratory Medicine. It has not been cleared or approved by the U.S. Food and Drug Administration. The FDA has determined that such clearance or approval is not necessary. The test is used for clinical purposes. It should not be regarded as investigational or for research. This laboratory is certified to perform high complexity testing. Frozen section/operating room consultation, gross examination and dissection, and case sign out may have been performed in part or completely in the following laboratories: [facility], CLIA #[id number] [address] [place] [address] [facility], [place] #[id number] [address] [place] [address] [facility], [place] #[id number] [address] [place] [address] This report was created with the [employer] voice-activated dictation system. Inherent to this system is the possibility of syntax, grammar, punctuation and other errors that could impact the interpretation of the report. If there are interpretative questions about aspects of this report, please contact the performing pathologist. 9:33 AM T [facility] Bone marrow ALL BONE MARROW / Unknown Collection / Unknown 01/21/2025 12:17 PM CDT 01/21/2025 1:51 PM CDT Bone marrow specimen (specimen) ALL BONE MARROW / Unknown 01/21/2025 12:17 PM CDT 01/21/2025 1:51 PM CDT Bone marrow specimen (specimen) ALL BONE MARROW / Unknown 01/21/2025 12:17 PM CDT 01/21/2025 1:51 PM CDT Bone marrow specimen (specimen) (Peripheral Blood Smear) 01/21/2025 12:17 PM CDT 01/21/2025 1:51 PM CDT Bone marrow specimen (specimen) ALL BONE MARROW / Unknown 01/21/2025 12:17 PM CDT 01/21/2025 1:51 PM CDT us Jayson Henriquez MD PATHOLOGY/CYTOLOGY ORDDoroteo DELANEY Edited Result - Final [facility]ORY SERVICES [facility]# [id number] [address] [place] [address] * IR BIOPSY BONE MARROW (01/21/2025 12:09 PM CDT) Anatomical Region Laterality Modality X-Ray Angiograph y 01/21/2025 12:1 8 PM CDT Impressions 01/21/2025 2:57 PM CDT IMPRESSION: Successful left iliac bone marrow biopsy and aspiration. DICTATION LOCATION: Location 1 - [facility] Narrative 01/21/2025 2:57 PM CDT FLUOROSCOPY GUIDED BONE MARROW BIOPSY/ASPIRATION TIME/DATE: 01/21/2025 12:09 PM. IR: Romie Henriquez MD CLINICAL INFORMATION/INDICATION: Male of 75 years age with Chronic anemia presents for bone marrow biopsy/aspiration. CONSENT: The indications, procedures, benefits, and risks (including but not limited to infection and bleeding) were discussed with the patient/patient's proxy and informed consent was obtained per protocol. SEDATION: Provided by the anesthesia department as detailed in the medical record. TECHNIQUE: Patient identification and preprocedural timeout was performed per protocol. Maximum sterile technique was utilized for all aspects of the procedure. The overlying subcutaneous tissues were infiltrated with local anesthetic and the posterior left iliac was accessed with the Cirro biopsy device using realtime fluoroscopic guidance. A heparinized and nonheparinized bone marrow aspiration, and a 12 g core bone marrow biopsy were obtained. At the end of the procedure, the devices were removed and a sterile dressing was applied. The patient tolerated the procedure well. MEDICATIONS: None Fluoroscopy time: 0.8 minutes. REFERENCE AIR KERMA DOSE: 9.20 mGy ESTIMATED BLOOD LOSS: 3 mL COMPLICATIONS: None FINDINGS: Fluoroscopic imaging demonstrates well-positioned biopsy device at the targeted site. Procedure Note Jayson Henriquez MD - 01/21/2025 FLUOROSCOPY GUIDED BONE MARROW BIOPSY/ASPIRATION TIME/DATE: 01/21/2025 12:09 PM. IR: Romie Henriquez MD CLINICAL INFORMATION/INDICATION: Male of 75 years age with Chronic anemia presents for bone marrow biopsy/aspiration. CONSENT: The indications, procedures, benefits, and risks (including but not limited to infection and bleeding) were discussed with the patient/patient's proxy and informed consent was obtained per protocol. SEDATION: Provided by the anesthesia department as detailed in the medical record. TECHNIQUE: Patient identification and preprocedural timeout was performed per protocol. Maximum sterile technique was utilized for all aspects of the procedure. The overlying subcutaneous tissues were infiltrated with local anesthetic and the posterior left iliac was accessed with the Cirro biopsy device using realtime fluoroscopic guidance. A heparinized and nonheparinized bone marrow aspiration, and a 12 g core bone marrow biopsy were obtained. At the end of the procedure, the devices were removed and a sterile dressing was applied. The patient tolerated the procedure well. MEDICATIONS: None Fluoroscopy time: 0.8 minutes. REFERENCE AIR KERMA DOSE: 9.20 mGy ESTIMATED BLOOD LOSS: 3 mL COMPLICATIONS: None FINDINGS: Fluoroscopic imaging demonstrates well-positioned biopsy device at the targeted site. IMPRESSION: Successful left iliac bone marrow biopsy and aspiration. DICTATION LOCATION: Location 1 - [facility] Iron Cunningham MD IR ORDERABLES Final Result * MANUAL DIFFERENTIAL (01/21/2025 10:06 AM CDT) PLATELET EST. Consistent w Count 01/21/2025 11:20 AM CDT [facility]OR[facility]ORY SERVICES [facility] ANISOCYTOSIS 1+ /hpf 01/21/2025 11:20 AM T [facility]OR[facility]ORY SERVICES [facility] POIKILOCYTES 1+ /hpf 01/21/2025 11:20 AM CDT [facility] LABORATORY SERVICES - . [facility] MACROCYTES 1+ /hpf 01/21/2025 11:20 AM CDT [facility] LABORATORY [facility] POLYCHROMASIA 1+ /hpf 01/21/2025 11:20 AM CDT [facility] LABOR[facility]ORY [facility] HYPOCHROMIA 1+ /hpf 01/21/2025 11:20 AM CDT [facility] LABORATORY [facility] - . [facility] OVALOCYTES 1+ /hpf 01/21/2025 11:20 AM CDT [facility] [place] Blood Venipuncture / Unknown 01/21/2025 10:06 AM CDT 01/21/2025 10:19 AM CDT Erasmo Bang MD HEMATOLOGY ORDERABLES COM Fin al Result [facility] CLIA# [id number] [address] [facility] [place] [address] * (ABNORMAL) CBC WITH DIFFERENTIAL (01/21/2025 10:06 AM CDT) Only the most recent of3 resultswithin the time period is included. WBC 5.0 4.0 - 9.8 K/uL 01/21/2025 10:57 AM [facility] RBC 2.05(L) 4.50 - 5.40 M/uL 01/21/2025 10:57 AM [facility] HEMOGLOBIN 6.2(LL) 13.6 - 16.5 g/dL 01/21/2025 10:57 AM [facility] Comment: Verified by repeat analysis. HEMATOCRIT 20.8(L) 40.0 - 48.0 % 01/21/2025 10:57 AM [facility] [employer] [facility] MCV 101.5(H) 82.0 - 99.0 fL 01/21/2025 10:57 AM [facility] [employer] [facility] MCH 30.2 27.2 - 32.6 pg 01/21/2025 10:57 AM [facility] [employer] [facility] MCHC 29.8(L) 31.5 - 35.5 g/dL 01/21/2025 10:57 AM [employer] [facility] - . [place] RDW 16.2(H) 11.5 - 14.5 % 01/21/2025 10:57 AM [facility] - [facility] RDW-STDEV 60.3(H) 37.1 - 48.7 fL 01/21/2025 10:57 AM [facility] PLATELETS 240 140 - 350 K/uL 01/21/2025 10:57 AM [facility] - [facility] [place] MPV 8.5(L) 9.3 - 12.4 fL 01/21/2025 10:57 AM [facility] - [facility] [place] NEUTROPHILS 70 % 01/21/2025 10:57 AM [facility] LYMPHOCYTES 12 % 01/21/2025 10:57 AM [employer] LABORATORY SERVICES - [facility] MONOCYTES 15 % 01/21/2025 10:57 AM [facility] - [facility] EOSINOPHILS 3 % 01/21/2025 10:57 AM [facility] BASOPHILS 1 % 01/21/2025 10:57 AM [employer] LABORATORY SERVICES - [facility] [place] IMMATURE GRANULOCYTES 0 % 01/21/2025 10:57 AM [facility] - [facility] [place] NEUTROPHIL ABSOLUTE 3.48 1.90 - 7.00 K/uL 01/21/2025 10:57 AM [employer] LABORATORY SERVICES - [facility] LYMPHOCYTE ABSOLUTE 0.58(L) 0.70 - 4.50 K/uL 01/21/2025 10:57 AM [facility] MONOCYTE ABSOLUTE 0.74 0.10 - 1.30 K/uL 01/21/2025 10:57 AM CDT [facility] - [facility] EOSINOPHIL ABSOLUTE 0.14 0.00 - 0.70 K/uL 01/21/2025 10:57 AM CDT [facility] BASOPHILS ABSOLUTE 0.03 0.00 - 0.20 K/uL 01/21/2025 10:57 AM [employer] LABORATORY SERVICES - [facility] IMMATURE GRANULOCYTES ABSOLUTE 0.02 0.00 - 0.03 K/uL 01/21/2025 10:57 AM [facility] [employer] [facility] Blood Venipuncture / Unknown 01/21/2025 10:06 AM CDT 01/21/2025 10:19 AM CDT Erasmo Bang MD HEMATOLOGY ORDERABLES Final R esult [facility] [employer] [facility] CLIA# [id number] [address] [place] [address] * (ABNORMAL) BASIC METABOLIC PANEL (01/21/2025 9:16 AM CDT) SODIUM 141 136 - 145 mmol/L 01/21/2025 10:11 AM [facility] [employer] [facility] POTASSIUM 4.4 3.5 - 5.0 mmol/L 01/21/2025 10:11 AM [facility] [employer] [facility] CHLORIDE 99 98 - 107 mmol/L 01/21/2025 10:11 AM [facility] CO2 29 22 - 29 mmol/L 01/21/2025 10:11 AM [facility] [employer] [facility] CALCIUM 8.4(L) 8.6 - 10.2 mg/dL 01/21/2025 10:11 AM [facility] [employer] [facility] BUN 56(H) 8 - 23 mg/dL 01/21/2025 10:11 AM [facility] [employer] [facility] CREATININE 6.05(H) 0.67 - 1.17 mg/dL 01/21/2025 10:11 AM [facility] Comment:The GFR result is no t clinically significant on patients <18 or >70 years of age. GLUCOSE 110(H) 74 - 99 mg/dL 01/21/2025 10:11 AM [facility] [employer] [facility] GFR 9 mL/min/1.7 3 sq meter 01/21/2025 10:11 AM [facility] Comment:eGFR calculated with 2020 CKD-EPI equation. Vegetarian diet, extremely high or low muscle mass, and may affect results. Cystatin C with Glomerular Filtration Rate is a suitable alternative for these patients. ANION GAP 13 8 - 16 mmol/L 01/21/2025 10:11 AM CDT [facility] LAB[facility] Blood Venipuncture / Unknown 01/21/2025 9:16 AM CDT 01/21/2025 9:21 AM CDT us Jean-Pierre Cunha MD CHEMISTRY ORDERABLES Final Re sult [facility] CLIA# [id number] [address] [address] from Last 3 Months Insurance [facility] [address] [facility] Address: [address] [address] [facility] [address]
--- OUTSIDE RECORDS SUMMARY | 2025-03-28 16:54 | XMS_ITS | Encounter Summary ---
Author Organization [facility] Healthcare Address [address] [place] [address] Care Team Providers Care Phlebotomy Director Name Role Phone Chandler Geronimo DO Primary Care Prov ider Encounter Details Date Type Department Care Team (Late st Contact Info) Description 09/10/2024 Orders Only [facility] Health Information Management [address] [place] [id number] Scanning, Provider Social History Tobacco Use Types Packs/Day Years Used Date Smoking Tobacco: Never Assessed Sex and Gender Information Value Date Recorded Sex Assigned at Not on file 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 Gender Identity Not on file Sexual Orientation Not on file documented as of this encounter Plan of Treatment Not on file documented as of this encounter Procedures Procedure Name Priority Date/Time Associated Diagnosis Comments SCAN - RADIOLOGY/IMAGING 09/10/2024 documented in this encounter Results * SCAN - RADIOLOGY/IMAGING (09/10/2024) Anatomical Region Laterality Modality Other us Provider Scanning Final Result documented in this encounter Visit Diagnoses Not on filedocumented in this encounter Care Teams Phlebotomy Director Relationship Specialty Start Date End Date Chandler Geronimo DO PCP - General Family Medicine 06/07/21 documented as of this encounter
--- OUTSIDE RECORDS SUMMARY | 2025-03-28 16:54 | XMS_ITS | Encounter Summary ---
Author Organization [facility] Address [address] [place] [address] Care Team Providers Care Lbd Teacher Name Role Phone Chandler Geronimo DO Primary Care Provide r Encounter Details Date Type Department Care Team (Late st Contact Info) Description 07/16/2021 Therapy Plan [facility] Infusion Services [place] [id number] David Hamilton MD 3 [facility], [address] [id number] Social History Tobacco Use Types Packs/Day Years Used Date Smoking Tobacco: Never Smokeless Tobacco: Never Alcohol Use Standard Drinks/Week Comments Never 0 (1 standard drink = 0.6 oz pur e alcohol) Sex and Gender Information Value Date Recorded Sex Assigned at Male 07/22/2024 2:00 PM HOLTER SCANNING TECHNICIAN Legal Sex Male 2:48 PM HOLTER SCANNING TECHNICIAN Gender Identity Not on file Sexual Orientation Not on file COVID-19 Exposure Response Date Recorded In the last 10 days, have yo u been in contact with someone who was confirmed or suspected to have Coronavirus/COVID-19? No / Unsure 07/16/2021 3:48 PM HOLTER SCANNING TECHNICIAN documented as of this encounter Functional Status * RETIRED Are you deaf or do you have serious difficulty hearing Answer Date of Assessment Author Status No 06/13/2021 2:44 AM HOLTER SCANNING TECHNICIAN Activ e * RETIRED Are you blind or do you have serious difficulty seeing, even when wearing glasses? Answer Date of Assessment Author Status No 06/13/2021 2:44 AM HOLTER SCANNING TECHNICIAN Activ e * Do you have [...] chronic kidney disease, not on chronic dialysis ([facility]/HCC [facility])- Primary documented in this encounter Care Teams Lbd Teacher Relationship Specialty Start Date End Date Chandler Geronimo DO [address] [place] [phone] PCP - General FAMILY PRACTICE 05/29/21 documented as of this encounter
--- OUTSIDE RECORDS SUMMARY | 2025-03-28 16:54 | XMS_ITS | Encounter Summary ---
Author Organization [facility] Address [address] [place] [address] Care Team Providers Care Fence Post Driver Name Role Phone Chandler Geronimo DO Primary Care Provide r Encounter Details Date Type Department Care Team (Late st Contact Info) Description 09/01/2024 MyChart Message Enc [facility] Multispecialty Care - [facility], [facility] [address] [place] [address] David Hamilton MD 3 [facility], [facility] [address] [place] [address] question Social History Tobacco Use [...] declined 10/10/2022 How often do you attend judaism or orthodox serv ices? Patient declined 10/10/2022 Do you belong to any clubs o r organizations such as judaism groups, unions, fraternal or athletic groups, or [...] Recorded Patient Health Questionnaire-2 Score 0 07/26/2024 [facility] [place] of Occupat ional Health - Occupational Stress [...] the past 12 m [facility], were you homeless or living in a usp (including now)? 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
--- OUTSIDE RECORDS SUMMARY | 2025-03-28 16:54 | XMS_ITS | Clinical Summary ---
Author Organization [facility] Address [address] [facility] [place] [address] Care Team Providers Care Rug Drying Machine Operator Name Role Phone Unavailable Primary Care Provider Unavailabl e Source Comments [facility],non-owned Affiliates and Associated Physician Practices is amultiple site organization consisting of ambulatory clinics and hospital sitesin [place], [place], [place] and [place]. This disclosure is being madepursuant to the Care Everywhere program and may not contain all information available regarding this patient. Last updated 18.[facility] Allergies No known active allergies Medications * [...] on file Legal Sex Male 11:54 AM FINANCE EXECUTIVE Gender Identity Not on file Sexual Orientation Not on file Last Filed Vital Signs Vital Sign Reading Time Taken Comments Blood Pressure 113/89 06/17/2011 5:40 PM FINANCE EXECUTIVE Pulse 67 06/17/2011 9:53 PM FINANCE EXECUTIVE Temperature 36.3 C (97.3 F) 06/17/2011 5:40 PM FINANCE EXECUTIVE Respiratory Rate 16 06/17/2011 5:40 PM FINANCE EXECUTIVE Oxygen Saturation 95% 06/17/2011 9:53 PM FINANCE EXECUTIVE Inhaled Oxygen Concentration - - Weight 91.6 kg (202 lb) 06/17/2011 5:40 PM FINANCE EXECUTIVE Height 177.8 cm (5' 10) 06/17/2011 5:40 PM FINANCE EXECUTIVE Body Mass Index 28.98 06/17/2011 5:40 PM FINANCE EXECUTIVE Plan of Treatment Health Maintenance Due Date Last Done Comments HEPATITIS C SCREENING 12/27/1965 PNEUMOCOCCAL VACCINE 50+ (1 of 2 - PCV) 12/31/1966 HEPATITIS B VACCINE (1 of 3 - Risk Dialysis 4-dose series) 1968 ZOSTER VACCINE (1 of 2) 12/31/1997 DTAP/TDAP/TD VACCINES (2 - Tdap) 06/17/2021 06/17/2011 Respiratory Syncytial Virus (RSV) Vaccine Pt: or over 60 yrs (1 - 1-dose 75+ series) 12/31/2022 DEPRESSION SCREENING 06/02/2024 MEDICARE AWV CALENDAR YEAR 2024 COVID-19 VACCINE (3 - 2024- season) 2025 12/22/2021, 10/04/2020 INFLUENZA VACCINE (#1) 2025 , 04/17/2023, 04/05/2021, Additional history exists HIB VACCINE Aged Out No longer eligi [...] of Phone Billing Address Personal/Family Self 1950 [phone] (Work) [address] [place] [address] [employer] MEDICARE ADV MEDICAID - [place] Advance Directives * FULL RESUSCITATION (Latest Code Status on File) Date Activated Date Inactivated Comments 11/20/2010 1:48 PM 11/21/2010 5:57 AM
--- OUTSIDE RECORDS SUMMARY | 2025-03-28 16:54 | XMS_ITS | Encounter Summary ---
Author Organization [facility] Address [address] [place] [address] Care Team Providers Care Psychology Intern Name Role Phone Chandler Geronimo DO Primary Care Provide r Encounter Details Date Type Department Care Team (Late st Contact Info) Description 10/21/2022 Therapy Plan [facility] Infusion Services [place] [phone] David Hamilton MD 3 [facility], [place] [phone] Social History Tobacco Use Types Packs/Day Years [...] No 10/10/2022 Social Connection and Isolation Panel Answer Date Recorded In a typical week, how many times do you talk on the phone with family, friends, or neighbors? Patient declined 10/10/2022 How often do you get togethe r with friends or relatives? Patient declined 10/10/2022 How often do you attend anabaptist or sabianism serv ices? Patient declined 10/10/2022 Do you belong to any clubs o r organizations such as anabaptist groups, unions, fraternal or athletic groups, or [...] Recorded Patient Health Questionnaire-2 Score 0 10/21/2022 [facility] Occupat ional Health - [...] a nursing home (including now)? No 10/10/2022 Sex and Gender Information Value Date Recorded Sex Assigned at Male 07/22/2024 2:00 PM MANAGER MUTUAL FUND Legal Sex Male 2:48 PM MANAGER MUTUAL FUND Gender Identity Not on file Sexual Orientation [...] documented as of this encounter Care Teams Psychology Intern Relationship Specialty Start Date End Date Chandler Geronimo DO [address] [place] [phone] PCP - General FAMILY PRACTICE 05/29/21 documented as of this encounter
--- OUTSIDE RECORDS SUMMARY | 2025-03-28 16:54 | XMS_ITS ---
Author Organization [facility] ([facility]) Address [address] [place] [id number] Care Team Providers Care Customer Account Executive Name Role Phone Unavailable Unavailable Unavailable Allergies, Adverse Reactions, Alerts Allergy Name Allergy Type Status Severity Reaction(s) Onset Date Inactive Date Treating Clinician Comments No Known Allergies Allergy Active 2024-08 19:03:0 0 Medications Ordered Medication Name Filled Medication Name Start Date Stop Date Current Medication? Ordering Clinician Indication Dosage Frequency Signature (SIG) Comments Components Venofer 2024-06 0-24 05:00: 00 Yes [id number] Number of Repeats Allowed: Frequency: One time a weekDosesO rdered: Maintenanc e Dose 50 Milligram Route: Intravenou s Mircera 2024-06 0-24 05:00: 00 Yes [id number] Number of Repeats Allowed: Frequency: GILBERT dosing, every two weeks Mircera 2024-06 0-17 12:24: 15 Yes [id number] Number of Repeats Allowed: Frequency: GILBERT dosing, every two weeks Mircera 6-06 05:00: 00 Yes [id number] Number of Repeats Allowed: Frequency: GILBERT dosing, every two weeks Venofer 5-30 13:10: 56 Yes [id number] Number of Repeats Allowed: Frequency: One time a weekDosesO rdered: Maintenanc e Dose 50 Milligram Route: Intravenou s ONS [facility] 5-28 05:00: 00 Yes [id number] Number of Repeats Allowed: Frequency: Every Dialysis Treatment Mircera 5-25 12:35: 51 Yes [id number] Number of Repeats Allowed: Frequency: GILBERT dosing, every two weeks Mircera 5-16 05:00: 00 Yes [id number] Number of Repeats Allowed: Frequency: GILBERT dosing, every two weeks Venofer 0 10-08 18:04: 17 Yes [id number] Number of Repeats Allowed: Frequency: One time a weekDosesO rdered: Maintenanc e Dose 50 Milligram Route: Intravenou s Mircera 10-04 19:40: 15 Yes [id number] Number of Repeats Allowed: Frequency: GILBERT dosing, every two weeks Venofer 10-04 19:37: 25 Yes [id number] Number of Repeats Allowed: Frequency: Every other week ( and 3rd week of the month)Dose sOrdered: Maintenanc e Dose 50 Milligram Route: Intravenou s Mircera 10-04 19:34: 12 Yes [id number] Number of Repeats Allowed: Frequency: GILBERT dosing, every three to four weeks Venofer 10-04 19:33: 20 Yes [id number] Number of Repeats Allowed: Frequency: Every monthDoses Ordered: Maintenanc e Dose 100 Milligram Route: Intravenou s Sodium Bicarbonate 09-02 17:15: 21 Yes Number [...] Allowed: Frequency: Two times a day Vitamin [id number] Acid 09-02 16:56: 55 Yes Number of Repeats Allowed: Frequency: Every morning Amiodarone HCl 403 16:56: 19 Yes Number of Repeats Allowed: Frequency: Every morning Problems This patient has no known problems. Procedures Procedure Date / Time Performed Performing Clinician Jasmina atkinson Details AV Fistula 2023-06-25 06:00:00 Access Site Upper Arm (Left) Access Use Start Date 2024-08-25 05:00:0 0 DIALYSIS TREATMENT INFORMATION Conventional Hemodialysis Date Type Treatment Start Date Treatment End Date Pre-Treatment Vitals Post-Treatment Vitals Weight Gain BFR DFR Actual UF Dialysis Access Octob er 2024 In-Ce nter Hemod ialys is Treat ment 2025-03-26 T11:52:17. 000Z 2025-03-26 T15:20:12. 000Z BP Sitting (Pre-Dialysis) 127/52 mmHg BP Sitting (Post-D ialysis ) 127/ 50 mmHg BP Standing (Pre-Dialysis) 121/42 mmHg Sitti ng Heart Rate Post-Dialysis 71 BPM Sitting Heart Rate Pre-Dialysis 71 BPM Temperatu re Post-Dialysis 97.6 degF Standing Heart Rate Pre-Dialysis 72 BPM Temperature Pre-Dialysis 97.5 degF March 24, 2025 In-Center Hemodialysis Treatment [id number]:07:55.000Z 1291-83-73L13:38:45.000Z BP Sitting (Pre-Dialysis) 145/62 mmHg BP Sitting (Post-Dialysis) 141/59 mmHg Concurrent Access: falseAV Fistula Upper Arm (Left) Arterial BP Standing (Pre-Dialysis) 129/49 mmHg BP Standing (P ost-Dialysis) 124/49 mmHg Sitting Heart Rate Pre-Dialysis 70 BPM Sitting Heart Rate Post-Dialysis 67 BPM Standing Heart Rate Pre-Dialysis 70 BPM Standing Heart Rate Post-Dialysis 68 BPM Temperature Pre-Dialysis 97.2 degF Temperature Post -Dialysis 97.6 degF March 22, 2025 In-Center Hemodialysis Treatment 2627-52-01Q37:03:56.000Z 9176-59-16J27:34:21.000Z BP Sitting (Pre-Dialysis) 138/52 mmHg BP Sitting (Post-Dialysis) 123/52 mmHg Concurrent Access: falseAV Fistula Upper Arm (Left) Arterial Sitting Heart Rate Pre-Dialysis 65 BPM BP Standing (Post-Dialysis) 115/41 mmHg Temperature Pre-Dialysis 98.2 degF Sitting Heart Ra te Post-Dialysis 64 BPM Standing Heart Rate Post-Melanie lysis 65 BPM Temperature Post-Dialysis 97 .8 degF March 19, 2025 In-Center Hemodialysis Treatment 0571-86-73W68:04:42.000Z 3420-79-26M30:33:27.000Z BP Sitting (Pre-Dialysis) 152/62 mmHg BP Sitting (Post-Dialysis) 133/53 mmHg Concurrent Access: falseAV Fistula Upper Arm (Left) Arterial Sitting Heart Rate Pre-Dialysis 73 BPM BP Standi ng (Post-Dialysis) 125/53 mmHg Temperature Pre-Dialysis 98 degF Sitting Heart Ra te Post-Dialysis 67 BPM Standing Heart Rate Post-Melanie lysis 69 BPM Temperature Post-Dialysis 97 .6 degF March 17, 2025 In-Center Hemodialysis Treatment 3404-41-33W79:51:00.000Z 4360-08-29O98:24:45.000Z BP Sitting (Pre-Dialysis) 149/56 mmHg BP Sitting (Post-Dialysis) 138/55 mmHg Concurrent Access: falseAV Fistula Upper Arm (Left) Arterial BP Standing (Pre-Dialysis) 148/56 mmHg Sitting Heart Rate Post-Dialysis 66 BPM Sitting Heart Rate Pre-Dialysis 72 BPM Temperatu re Post-Dialysis 98 degF Standing Heart Rate Pre-Dialysis 73 BPM Temperature Pre-Dialysis 97.7 degF March 15, 2025 In-Center Hemodialysis Treatment 2806-98-15X09:08:58.000Z 8974-14-79L61:38:33.000Z BP Sitting (Pre-Dialysis) 146/58 mmHg BP Sitting (Post-Dialysis) 143/55 mmHg Concurrent Access: falseAV Fistula Upper Arm (Left) Arterial BP Standing (Pre-Dialysis) 146/58 mmHg Sitti ng Heart Rate Post-Dialysis 70 BPM Sitting Heart Rate Pre-Dialysis 68 BPM Temperatu re Post-Dialysis 97.6 degF Standing Heart Rate Pre-Dialysis 68 BPM Temperature Pre-Dialysis 98.6 degF March 12, 2025 In-Center Hemodialysis Treatment 4036-52-54D07:51:00.000Z 5363-41-11Q33:27:53.000Z BP Sitting (Pre-Dialysis) 158/58 mmHg BP Sitting (Post-Dialysis) 148/62 mmHg Concurrent Access: falseAV Fistula Upper Arm (Left) Arterial BP Standing (Pre-Dialysis) 163/55 mmHg BP Standing (P ost-Dialysis) 127/51 mmHg Sitting Heart Rate Pre-Dialysis 70 BPM Sitting Heart Rate Post-Dialysis 70 BPM Standing Heart Rate Pre-Dialysis 70 BPM Standing Heart Rate Post-Dialysis 69 BPM Temperature Pre-Dialysis 97.5 degF Temperature Post -Dialysis 97.5 degF March 10, 2025 In-Center Hemodialysis Treatment 6979-88-03R11:54:54.000Z 0349-15-68H55:24:54.000Z BP Sitting (Pre-Dialysis) 151/68 mmHg BP Sitting (Post-Dialysis) 137/54 mmHg Concurrent Access: falseAV Fistula Upper Arm (Left) Arterial Sitting Heart Rate Pre-Dialysis 79 BPM Sitting H eart Rate Post-Dialysis 68 BPM Temperature Pre-Dialysis 98.1 degF Temperature Post -Dialysis 98.3 degF March 08, 2025 In-Center Hemodialysis Treatment [id number]:53:56.000Z 8560-25-52U29:24:46.000Z BP Sitting (Pre-Dialysis) 152/53 mmHg BP Sitting (Post-Dialysis) 152/63 mmHg Concurrent Access: falseAV Fistula Upper Arm (Left) Arterial BP Standing (Pre-Dialysis) 149/60 mmHg BP Standing (P ost-Dialysis) 152/52 mmHg Sitting Heart Rate Pre-Dialysis 68 BPM Sitting Heart Rate Post-Dialysis 64 BPM Standing Heart Rate Pre-Dialysis 68 BPM Standing Heart Rate Post-Dialysis 68 BPM Temperature Pre-Dialysis 97.5 degF Temperature Post -Dialysis 97.8 degF March 05, 2025 In-Center Hemodialysis Treatment [id number]:11:01.000Z 3979-47-99T41:41:51.000Z BP Sitting (Pre-Dialysis) 127/52 mmHg BP Sitting (Post-Dialysis) 132/53 mmHg Concurrent Access: falseAV Fistula Upper Arm (Left) Arterial Sitting Heart Rate Pre-Dialysis 63 BPM BP Standing (Post-Dialysis) 130/51 mmHg Temperature Pre-Dialysis 98.2 degF Sitting Heart Ra te Post-Dialysis 69 BPM Standing Heart Rate Post-Melanie lysis 68 BPM Temperature Post-Dialysis 97 .6 degF March 03, 2025 In-Center Hemodialysis Treatment 2605-10-77O37:55:32.000Z 5337-89-66N89:26:22.000Z BP Sitting (Pre-Dialysis) 145/58 mmHg BP Sitting (Post-Dialysis) 123/52 mmHg Concurrent Access: falseAV Fistula Upper Arm (Left) Arterial BP Standing (Pre-Dialysis) 143/54 mmHg BP Standing (P ost-Dialysis) 123/49 mmHg Sitting Heart Rate Pre-Dialysis 68 BPM Sitting Heart Rate Post-Dialysis 66 BPM Standing Heart Rate Pre-Dialysis 72 BPM Standing Heart Rate Post-Dialysis 70 BPM Temperature Pre-Dialysis 97.5 degF Temperature Post -Dialysis 97.6 degF March 01, 2025 In-Center Hemodialysis Treatment 5608-69-30O60:53:02.000Z 6311-39-70F67:20:32.000Z BP Sitting (Pre-Dialysis) 148/56 mmHg BP Sitting (Post-Dialysis) 141/53 mmHg Concurrent Access: falseAV Fistula Upper Arm (Left) Arterial BP Standing (Pre-Dialysis) 145/61 mmHg BP Standing (P ost-Dialysis) 132/50 mmHg Sitting Heart Rate Pre-Dialysis 73 BPM Sitting Heart Rate Post-Dialysis 65 BPM Standing Heart Rate Pre-Dialysis 73 BPM Standing Heart Rate Post-Dialysis 63 BPM Temperature Pre-Dialysis 97.5 degF Temperature Post -Dialysis 97.5 degF February 26, 2025 In-Center Hemodialysis Treatment 5837-75-97O39:59:43.000Z 6756-51-14W67:28:03.000Z BP Sitting (Pre-Dialysis) 118/63 mmHg BP Sitting (Post-Dialysis) 143/57 mmHg Concurrent Access: falseAV Fistula Upper Arm (Left) Arterial BP Standing (Pre-Dialysis) 116/62 mmHg BP Standing (P ost-Dialysis) 123/54 mmHg Sitting Heart Rate Pre-Dialysis 59 BPM Sitting Heart Rate Post-Dialysis 66 BPM Standing Heart Rate Pre-Dialysis 58 BPM Standing Heart Rate Post-Dialysis 67 BPM Temperature Pre-Dialysis 97.2 degF Temperature Post -Dialysis 97.6 degF February 24, 2025 In-Center Hemodialysis Treatment 0884-88-62N09:57:00.000Z 4988-50-27C38:31:16.000Z BP Sitting (Pre-Dialysis) 146/63 mmHg BP Sitting (Post-Dialysis) 150/57 mmHg Concurrent Access: falseAV Fistula Upper Arm (Left) Arterial BP Standing (Pre-Dialysis) 150/61 mmHg BP Standing (P ost-Dialysis) 124/53 mmHg Sitting Heart Rate Pre-Dialysis 73 BPM Sitting Heart Rate Post-Dialysis 68 BPM Standing Heart Rate Pre-Dialysis 73 BPM Standing Heart Rate Post-Dialysis 70 BPM Temperature Pre-Dialysis 97.8 degF Temperature Post -Dialysis 97.5 degF February 22, 2025 In-Center Hemodialysis Treatment [id number]:10:15.000Z 7103-83-27T94:39:50.000Z BP Sitting (Pre-Dialysis) 155/64 mmHg BP Sitting (Post-Dialysis) 116/49 mmHg Concurrent Access: falseAV Fistula Upper Arm (Left) Arterial BP Standing (Pre-Dialysis) 150/61 mmHg BP Standing (P ost-Dialysis) 122/50 mmHg Sitting Heart Rate Pre-Dialysis 71 BPM Sitting Heart Rate Post-Dialysis 62 BPM Standing Heart Rate Pre-Dialysis 73 BPM Standing Heart Rate Post-Dialysis 66 BPM Temperature Pre-Dialysis 98.7 degF Temperature Post -Dialysis 98 degF February 19, 2025 In-Center Hemodialysis Treatment 1219-11-18B81:07:57.000Z 9012-78-25U59:37:57.000Z BP Sitting (Pre-Dialysis) 148/61 mmHg BP Sitting (Post-Dialysis) 138/59 mmHg Concurrent Access: falseAV Fistula Upper Arm (Left) Arterial BP Standing (Pre-Dialysis) 140/54 mmHg Sitti ng Heart Rate Post-Dialysis 67 BPM Sitting Heart Rate Pre-Dialysis 68 BPM Temperatu re Post-Dialysis 98.6 degF Standing Heart Rate Pre-Dialysis 70 BPM Temperature Pre-Dialysis 98.3 degF February 17, 2025 In-Center Hemodialysis Treatment 5068-07-66M59:56:45.000Z 5744-79-82M09:27:10.000Z BP Sitting (Pre-Dialysis) 152/55 mmHg BP Sitting (Post-Dialysis) 135/57 mmHg Concurrent Access: falseAV Fistula Upper Arm (Left) Arterial BP Standing (Pre-Dialysis) 148/58 mmHg BP Standing (P ost-Dialysis) 114/45 mmHg Sitting Heart Rate Pre-Dialysis 72 BPM Sitting Heart Rate Post-Dialysis 68 BPM Standing Heart Rate Pre-Dialysis 69 BPM Standing Heart Rate Post-Dialysis 70 BPM Temperature Pre-Dialysis 97.5 degF Temperature Post -Dialysis 97.2 degF February 15, 2025 In-Center Hemodialysis Treatment 7663-47-60P16:03:15.000Z 2702-31-04D34:32:50.000Z BP Sitting (Pre-Dialysis) 141/51 mmHg BP Sitting (Post-Dialysis) 121/52 mmHg Concurrent Access: falseAV Fistula Upper Arm (Left) Arterial BP Standing (Pre-Dialysis) 129/44 mmHg Sitti ng Heart Rate Post-Dialysis 68 BPM Sitting Heart Rate Pre-Dialysis 74 BPM Temperatu re Post-Dialysis 98.1 degF Standing Heart Rate Pre-Dialysis 75 BPM Temperature Pre-Dialysis 98 degF February 12, 2025 In-Center Hemodialysis Treatment [id number]:05:44.000Z 7358-21-14X88:35:19.000Z BP Sitting (Pre-Dialysis) 135/51 mmHg BP Sitting (Post-Dialysis) 127/52 mmHg Concurrent Access: falseAV Fistula Upper Arm (Left) Arterial BP Standing (Pre-Dialysis) 131/50 mmHg BP Standing (P ost-Dialysis) 129/51 mmHg Sitting Heart Rate Pre-Dialysis 69 BPM Sitting Heart Rate Post-Dialysis 64 BPM Standing Heart Rate Pre-Dialysis 69 BPM Standing Heart Rate Post-Dialysis 67 BPM Temperature Pre-Dialysis 97.4 degF Temperature Post -Dialysis 97.8 degF February 10, 2025 In-Center Hemodialysis Treatment 9280-48-68U18:09:00.000Z 6281-99-47I20:39:00.000Z BP Sitting (Pre-Dialysis) 134/52 mmHg BP Sitting (Post-Dialysis) 148/56 mmHg Concurrent Access: falseAV Fistula Upper Arm (Left) Arterial BP Standing (Pre-Dialysis) 138/54 mmHg BP Standing (P ost-Dialysis) 121/46 mmHg Sitting Heart Rate Pre-Dialysis 70 BPM Sitting Heart Rate Post-Dialysis 69 BPM Standing Heart Rate Pre-Dialysis 68 BPM Standing Heart Rate Post-Dialysis 68 BPM February 10, 2025 In-Center Hemodialysis Treatment BP Sitting (Pre-Dialysis) 134/52 mmHg Concurrent Access: false BP Standing (Pre-Dialysis) 138/54 mmHg Sitting Heart Rate Pre-Dialysis 67 BPM Standing Heart Rate Pre-Dialysis 69 BPM Temperature Pre-Dialysis 97.6 degF February 08, 2025 In-Center Hemodialysis Treatment 2977-24-55L41:05:45.000Z 7146-47-06E10:36:10.000Z BP Sitting (Pre-Dialysis) 144/55 mmHg BP Sitting (Post-Dialysis) 136/64 mmHg Concurrent Access: falseAV Fistula Upper Arm (Left) Arterial BP Standing (Pre-Dialysis) 119/62 mmHg BP Standing (P ost-Dialysis) 106/44 mmHg Sitting Heart Rate Pre-Dialysis 69 BPM Sitting Heart Rate Post-Dialysis 73 BPM Standing Heart Rate Pre-Dialysis 72 BPM Standing Heart Rate Post-Dialysis 67 BPM Temperature Pre-Dialysis 97.5 degF Temperature Post -Dialysis 97.3 degF February 05, 2025 In-Center Hemodialysis Treatment 4212-57-76L70:58:07.000Z 4870-54-44H31:27:42.000Z BP Sitting (Pre-Dialysis) 118/45 mmHg BP Sitting (Post-Dialysis) 140/54 mmHg Concurrent Access: falseAV Fistula Upper Arm (Left) Arterial BP Standing (Pre-Dialysis) 122/44 mmHg BP Standing (P ost-Dialysis) 111/45 mmHg Sitting Heart Rate Pre-Dialysis 72 BPM Sitting Heart Rate Post-Dialysis 64 BPM Standing Heart Rate Pre-Dialysis 76 BPM Standing Heart Rate Post-Dialysis 67 BPM Temperature Pre-Dialysis 97.2 degF Temperature Post -Dialysis 97 degF February 03, 2025 In-Center Hemodialysis Treatment [id number]:55:46.000Z 3364-15-96C99:26:36.000Z BP Sitting (Pre-Dialysis) 149/57 mmHg BP Sitting (Post-Dialysis) 130/49 mmHg Concurrent Access: falseAV Fistula Upper Arm (Left) Arterial BP Standing (Pre-Dialysis) 146/57 mmHg BP Standing (P ost-Dialysis) 125/45 mmHg Sitting Heart Rate Pre-Dialysis 70 BPM Sitting Heart Rate Post-Dialysis 68 BPM Standing Heart Rate Pre-Dialysis 73 BPM Standing Heart Rate Post-Dialysis 67 BPM Temperature Pre-Dialysis 97.5 degF Temperature Post -Dialysis 97.8 degF February 01, 2025 In-Center Hemodialysis Treatment [id number]:01:09.000Z 1053-70-20Q82:30:19.000Z BP Sitting (Pre-Dialysis) 155/60 mmHg BP Sitting (Post-Dialysis) 122/48 mmHg Concurrent Access: falseAV Fistula Upper Arm (Left) Arterial BP Standing (Pre-Dialysis) 158/58 mmHg BP Standing (P ost-Dialysis) 108/52 mmHg Sitting Heart Rate Pre-Dialysis 81 BPM Sitting Heart Rate Post-Dialysis 63 BPM Standing Heart Rate Pre-Dialysis 86 BPM Standing Heart Rate Post-Dialysis 66 BPM Temperature Pre-Dialysis 98.4 degF Temperature Post -Dialysis 97.6 degF January 29, 2025 In-Center Hemodialysis Treatment [id number]:55:37.000Z 0751-83-53L04:27:17.000Z BP Sitting (Pre-Dialysis) 140/56 mmHg BP Sitting (Post-Dialysis) 117/45 mmHg Concurrent Access: falseAV Fistula Upper Arm (Left) Arterial BP Standing (Pre-Dialysis) 132/57 mmHg Sitti ng Heart Rate Post-Dialysis 61 BPM Sitting Heart Rate Pre-Dialysis 75 BPM Temperatu re Post-Dialysis 97.5 degF Standing Heart Rate Pre-Dialysis 76 BPM Temperature Pre-Dialysis 97.5 degF January 27, 2025 In-Center Hemodialysis Treatment 7799-14-51A83:09:53.000Z 3898-27-60X13:20:43.000Z BP Sitting (Pre-Dialysis) 151/58 mmHg BP Sitting (Post-Dialysis) 138/52 mmHg Concurrent Access: falseAV Fistula Upper Arm (Left) Arterial BP Standing (Pre-Dialysis) 159/60 mmHg BP Standing (P ost-Dialysis) 125/52 mmHg Sitting Heart Rate Pre-Dialysis 71 BPM Sitting Heart Rate Post-Dialysis 68 BPM Standing Heart Rate Pre-Dialysis 75 BPM Standing Heart Rate Post-Dialysis 67 BPM Temperature Pre-Dialysis 98.6 degF Temperature Post -Dialysis 97.6 degF January 25, 2025 In-Center Hemodialysis Treatment [id number]:51:00.000Z 2059-14-61I87:24:12.000Z BP Sitting (Pre-Dialysis) 160/64 mmHg BP Sitting (Post-Dialysis) 143/51 mmHg Concurrent Access: falseAV Fistula Upper Arm (Left) Arterial BP Standing (Pre-Dialysis) 157/53 mmHg BP Standing (P ost-Dialysis) 122/47 mmHg Sitting Heart Rate Pre-Dialysis 76 BPM Sitting Heart Rate Post-Dialysis 69 BPM Standing Heart Rate Pre-Dialysis 77 BPM Standing Heart Rate Post-Dialysis 71 BPM Temperature Pre-Dialysis 97.8 degF Temperature Post -Dialysis 97.5 degF January 22, 2025 In-Center Hemodialysis Treatment 6681-60-51E21:11:07.000Z 5119-34-54F10:39:52.000Z BP Sitting (Pre-Dialysis) 148/64 mmHg BP Sitting (Post-Dialysis) 130/59 mmHg Concurrent Access: falseAV Fistula Upper Arm (Left) Arterial Sitting Heart Rate Pre-Dialysis 70 BPM BP Standi ng (Post-Dialysis) 120/50 mmHg Temperature Pre-Dialysis 98 degF Sitting Heart Ra te Post-Dialysis 68 BPM Standing Heart Rate Post-Melanie lysis 67 BPM Temperature Post-Dialysis 97 .4 degF January 20, 2025 In-Center Hemodialysis Treatment 1332-30-31Y48:54:00.000Z 1290-89-57W33:26:49.000Z BP Sitting (Pre-Dialysis) 145/56 mmHg BP Sitting (Post-Dialysis) 137/55 mmHg Concurrent Access: falseAV Fistula Upper Arm (Left) Arterial BP Standing (Pre-Dialysis) 142/53 mmHg BP Standing (P ost-Dialysis) 126/53 mmHg Sitting Heart Rate Pre-Dialysis 67 BPM Sitting Heart Rate Post-Dialysis 66 BPM Standing Heart Rate Pre-Dialysis 67 BPM Standing Heart Rate Post-Dialysis 68 BPM Temperature Pre-Dialysis 97.5 degF Temperature Post -Dialysis 97.3 degF January 18, 2025 InCenter Hemodialysis Treatment 5329-17-37X94:58:00.000Z 4063-49-87Z69:30:36.000Z BP Sitting (Pre-Dialysis) 133/52 mmHg BP Sitting (Post-Dialysis) 110/50 mmHg Concurrent Access: falseAV Fistula Upper Arm (Left) Arterial BP Standing (Pre-Dialysis) 123/42 mmHg Sitti ng Heart Rate Post-Dialysis 65 BPM Sitting Heart Rate Pre-Dialysis 68 BPM Temperatu re Post-Dialysis 97.8 degF Standing Heart Rate Pre-Dialysis 70 BPM Temperature Pre-Dialysis 97.8 degF January 15, 2025 InCenter Hemodialysis Treatment 1476-08-93R22:56:00.000Z 6183-87-37E88:28:13.000Z BP Sitting (Pre-Dialysis) 146/55 mmHg BP Sitting (Post-Dialysis) 138/52 mmHg Concurrent Access: falseAV Fistula Upper Arm (Left) Arterial BP Standing (Pre-Dialysis) 138/51 mmHg BP Standing (P ost-Dialysis) 124/50 mmHg Sitting Heart Rate Pre-Dialysis 75 BPM Sitting Heart Rate Post-Dialysis 70 BPM Standing Heart Rate Pre-Dialysis 76 BPM Standing Heart Rate Post-Dialysis 71 BPM Temperature Pre-Dialysis 97.2 degF Temperature Post -Dialysis 97.6 degF January 13, 2025 In-Center Hemodialysis Treatment 8135-33-11D65:00:44.000Z 2120-15-20O70:30:04.000Z BP Sitting (Pre-Dialysis) 140/59 mmHg BP Sitting (Post-Dialysis) 117/46 mmHg Concurrent Access: falseAV Fistula Upper Arm (Left) Arterial BP Standing (Pre-Dialysis) 140/60 mmHg Sitti ng Heart Rate Post-Dialysis 67 BPM Sitting Heart Rate Pre-Dialysis 71 BPM Temperatu re Post-Dialysis 97.6 degF Standing Heart Rate Pre-Dialysis 72 BPM Temperature Pre-Dialysis 98.2 degF January 11, 2025 In-Center Hemodialysis Treatment 4916-23-25Q87:00:30.000Z 5871-30-97P24:30:30.000Z BP Sitting (Pre-Dialysis) 148/57 mmHg BP Sitting (Post-Dialysis) 141/57 mmHg Concurrent Access: falseAV Fistula Upper Arm (Left) Arterial BP Standing (Pre-Dialysis) 149/57 mmHg Sitti ng Heart Rate Post-Dialysis 65 BPM Sitting Heart Rate Pre-Dialysis 65 BPM Temperatu re Post-Dialysis 98.3 degF Standing Heart Rate Pre-Dialysis 65 BPM Temperature Pre-Dialysis 97.5 degF January 08, 2025 In-Center Hemodialysis Treatment 5322-41-94Y32:54:05.000Z 9512-47-74J63:23:52.000Z BP Sitting (Pre-Dialysis) 126/48 mmHg BP Sitting (Post-Dialysis) 124/52 mmHg Concurrent Access: falseAV Fistula Upper Arm (Left) Arterial BP Standing (Pre-Dialysis) 125/45 mmHg Sitti ng Heart Rate Post-Dialysis 67 BPM Sitting Heart Rate Pre-Dialysis 75 BPM Temperatu re Post-Dialysis 97.1 degF Standing Heart Rate Pre-Dialysis 76 BPM Temperature Pre-Dialysis 97.2 degF January 06, 2025 In-Center Hemodialysis Treatment 9115-49-42G38:14:04.000Z 3162-16-48H21:42:49.000Z BP Sitting (Pre-Dialysis) 127/55 mmHg BP Sitting (Post-Dialysis) 130/57 mmHg Concurrent Access: falseAV Fistula Upper Arm (Left) Arterial BP Standing (Pre-Dialysis) 120/45 mmHg Sitti ng Heart Rate Post-Dialysis 65 BPM Sitting Heart Rate Pre-Dialysis 67 BPM Temperatu re Post-Dialysis 97.6 degF Standing Heart Rate Pre-Dialysis 70 BPM Temperature Pre-Dialysis 97.5 degF January 04, 2025 In-Center Hemodialysis Treatment 4509-71-58C03:08:00.000Z 8995-30-32K36:37:05.000Z BP Sitting (Pre-Dialysis) 137/52 mmHg BP Sitting (Post-Dialysis) 123/45 mmHg Concurrent Access: falseAV Fistula Upper Arm (Left) Arterial BP Standing (Pre-Dialysis) 137/55 mmHg Sitti ng Heart Rate Post-Dialysis 60 BPM Sitting Heart Rate Pre-Dialysis 74 BPM Temperatu re Post-Dialysis 97.4 degF Standing Heart Rate Pre-Dialysis 75 BPM Temperature Pre-Dialysis 97.8 degF 2025 In-Center Hemodialysis Treatment 7740-56-02O91:58:55.000Z 5894-13-50R80:29:20.000Z BP Sitting (Pre-Dialysis) 111/75 mmHg BP Sitting (Post-Dialysis) 127/50 mmHg Concurrent Access: falseAV Fistula Upper Arm (Left) Arterial BP Standing (Pre-Dialysis) 117/45 mmHg Sitti ng Heart Rate Post-Dialysis 68 BPM Sitting Heart Rate Pre-Dialysis 71 BPM Temperatu re Post-Dialysis 97.4 degF Standing Heart Rate Pre-Dialysis 72 BPM Temperature Pre-Dialysis 97.4 degF December 30, 2024 In-Center Hemodialysis Treatment 6684-44-83J50:59:00.000Z 0738-06-42J60:34:01.000Z BP Sitting (Pre-Dialysis) 134/50 mmHg BP Sitting (Post-Dialysis) 126/53 mmHg Concurrent Access: falseAV Fistula Upper Arm (Left) Arterial BP Standing (Pre-Dialysis) 125/47 mmHg Sitti ng Heart Rate Post-Dialysis 69 BPM Sitting Heart Rate Pre-Dialysis 68 BPM Temperatu re Post-Dialysis 97.6 degF Standing Heart Rate Pre-Dialysis 71 BPM Temperature Pre-Dialysis 97.8 degF December 28, 2024 In-Center Hemodialysis Treatment 1877-92-95S61:56:53.000Z 9494-46-90P17:26:53.000Z BP Sitting (Pre-Dialysis) 140/51 mmHg BP Sitting (Post-Dialysis) 137/59 mmHg Concurrent Access: falseAV Fistula Upper Arm (Left) Arterial BP Standing (Pre-Dialysis) 138/48 mmHg BP Standing (P ost-Dialysis) 123/51 mmHg Sitting Heart Rate Pre-Dialysis 84 BPM Sitting Heart Rate Post-Dialysis 70 BPM Standing Heart Rate Pre-Dialysis 80 BPM Standing Heart Rate Post-Dialysis 71 BPM Temperature Pre-Dialysis 97.2 degF Temperature Post -Dialysis 97.2 degF December 25, 2024 In-Center Hemodialysis Treatment 3369-58-02X71:55:02.000Z 7085-86-44R04:24:37.000Z BP Sitting (Pre-Dialysis) 138/49 mmHg BP Sitting (Post-Dialysis) 144/54 mmHg Concurrent Access: falseAV Fistula Upper Arm (Left) Arterial BP Standing (Pre-Dialysis) 123/46 mmHg BP Standing (P ost-Dialysis) 132/52 mmHg Sitting Heart Rate Pre-Dialysis 73 BPM Sitting Heart Rate Post-Dialysis 66 BPM Standing Heart Rate Pre-Dialysis 73 BPM Standing Heart Rate Post-Dialysis 70 BPM Temperature Pre-Dialysis 97.2 degF Temperature Post -Dialysis 97.2 degF December 23, 2024 In-Center Hemodialysis Treatment 9413-75-99J58:14:46.000Z 2815-12-78U09:47:41.000Z BP Sitting (Pre-Dialysis) 133/54 mmHg BP Sitting (Post-Dialysis) 131/47 mmHg Concurrent Access: falseAV Fistula Upper Arm (Left) Arterial BP Standing (Pre-Dialysis) 136/53 mmHg BP Standing (P ost-Dialysis) 124/50 mmHg Sitting Heart Rate Pre-Dialysis 69 BPM Sitting Heart Rate Post-Dialysis 66 BPM Standing Heart Rate Pre-Dialysis 70 BPM Standing Heart Rate Post-Dialysis 72 BPM Temperature Pre-Dialysis 97.9 degF Temperature Post -Dialysis 98.1 degF December 21, 2024 In-Center Hemodialysis Treatment [id number]:57:00.000Z [id number]:28:37.000Z BP Sitting (Pre-Dialysis) 156/58 mmHg BP Sitting (Post-Dialysis) 143/57 mmHg Concurrent Access: falseAV Fistula Upper Arm (Left) Arterial BP Standing (Pre-Dialysis) 160/60 mmHg BP Standing (P ost-Dialysis) 130/50 mmHg Sitting Heart Rate Pre-Dialysis 77 BPM Sitting Heart Rate Post-Dialysis 71 BPM Standing Heart Rate Pre-Dialysis 77 BPM Standing Heart Rate Post-Dialysis 73 BPM Temperature Pre-Dialysis 97.7 degF Temperature Post -Dialysis 97.4 degF December 18, 2024 In-Center Hemodialysis Treatment [id number]:53:41.000Z [id number]:23:16.000Z BP Sitting (Pre-Dialysis) 137/53 mmHg BP Sitting (Post-Dialysis) 111/43 mmHg Concurrent Access: falseAV Fistula Upper Arm (Left) Arterial BP Standing (Pre-Dialysis) 131/53 mmHg BP Standing (P ost-Dialysis) 114/45 mmHg Sitting Heart Rate Pre-Dialysis 72 BPM Sitting Heart Rate Post-Dialysis 68 BPM Standing Heart Rate Pre-Dialysis 73 BPM Standing Heart Rate Post-Dialysis 72 BPM Temperature Pre-Dialysis 97.8 degF Temperature Post -Dialysis 97.8 degF December 16, 2024 In-Center Hemodialysis Treatment [id number]:53:25.000Z [id number]:23:50.000Z BP Sitting (Pre-Dialysis) 125/45 mmHg BP Sitting (Post-Dialysis) 148/61 mmHg Concurrent Access: falseAV Fistula Upper Arm (Left) Arterial BP Standing (Pre-Dialysis) 130/52 mmHg BP Standing (P ost-Dialysis) 126/49 mmHg Sitting Heart Rate Pre-Dialysis 71 BPM Sitting Heart Rate Post-Dialysis 68 BPM Standing Heart Rate Pre-Dialysis 73 BPM Standing Heart Rate Post-Dialysis 68 BPM Temperature Pre-Dialysis 97.8 degF Temperature Post -Dialysis 97.8 degF December 14, 2024 In-Center Hemodialysis Treatment [id number]:00:30.000Z [id number]:35:55.000Z BP Sitting (Pre-Dialysis) 125/48 mmHg BP Sitting (Post-Dialysis) 126/58 mmHg Concurrent Access: falseAV Fistula Upper Arm (Left) Arterial BP Standing (Pre-Dialysis) 119/41 mmHg BP Standing (P ost-Dialysis) 112/53 mmHg Sitting Heart Rate Pre-Dialysis 73 BPM Sitting Heart Rate Post-Dialysis 68 BPM Standing Heart Rate Pre-Dialysis 74 BPM Standing Heart Rate Post-Dialysis 70 BPM Temperature Pre-Dialysis 97.5 degF Temperature Post -Dialysis 98.4 degF December 11, 2024 In-Center Hemodialysis Treatment [id number]:12:55.000Z [id number]:45:50.000Z BP Sitting (Pre-Dialysis) 131/51 mmHg BP Sitting (Post-Dialysis) 135/56 mmHg Concurrent Access: falseAV Fistula Upper Arm (Left) Arterial BP Standing (Pre-Dialysis) 125/43 mmHg BP Standing (P ost-Dialysis) 121/47 mmHg Sitting Heart Rate Pre-Dialysis 73 BPM Sitting Heart Rate Post-Dialysis 70 BPM Standing Heart Rate Pre-Dialysis 76 BPM Standing Heart Rate Post-Dialysis 72 BPM Temperature Pre-Dialysis 97.7 degF Temperature Post -Dialysis 98.1 degF December 09, 2024 In-Center Hemodialysis Treatment [id number]:53:00.000Z [id number]:56:16.000Z BP Sitting (Pre-Dialysis) 138/50 mmHg BP Sitting (Post-Dialysis) 142/57 mmHg Concurrent Access: falseAV Fistula Upper Arm (Left) Arterial BP Standing (Pre-Dialysis) 134/51 mmHg BP Standing (P ost-Dialysis) 127/54 mmHg Sitting Heart Rate Pre-Dialysis 70 BPM Sitting Heart Rate Post-Dialysis 62 BPM Standing Heart Rate Pre-Dialysis 71 BPM Standing Heart Rate Post-Dialysis 66 BPM Temperature Pre-Dialysis 97.5 degF Temperature Post -Dialysis 97.8 degF December 07, 2024 In-Center Hemodialysis Treatment [id number]:02:13.000Z [id number]:32:38.000Z BP Sitting (Pre-Dialysis) 170/61 mmHg BP Sitting (Post-Dialysis) 148/66 mmHg Concurrent Access: falseAV Fistula Upper Arm (Left) Arterial BP Standing (Pre-Dialysis) 154/59 mmHg BP Standing (P ost-Dialysis) 128/53 mmHg Sitting Heart Rate Pre-Dialysis 89 BPM Sitting Heart Rate Post-Dialysis 68 BPM Standing Heart Rate Pre-Dialysis 91 BPM Standing Heart Rate Post-Dialysis 70 BPM Temperature Pre-Dialysis 97.7 degF Temperature Post -Dialysis 97.3 degF December 04, 2024 In-Center Hemodialysis Treatment [id number]:54:09.000Z [id number]:12:29.000Z BP Sitting (Pre-Dialysis) 154/56 mmHg BP Sitting (Post-Dialysis) 135/63 mmHg Concurrent Access: falseAV Fistula Upper Arm (Left) Arterial BP Standing (Pre-Dialysis) 165/58 mmHg BP Standing (P ost-Dialysis) 111/43 mmHg Sitting Heart Rate Pre-Dialysis 85 BPM Sitting Heart Rate Post-Dialysis 71 BPM Standing Heart Rate Pre-Dialysis 87 BPM Standing Heart Rate Post-Dialysis 68 BPM Temperature Pre-Dialysis 97.2 degF Temperature Post -Dialysis 97.6 degF December 02, 2024 In-Center Hemodialysis Treatment [id number]:56:29.000Z [id number]:27:19.000Z BP Sitting (Pre-Dialysis) 149/61 mmHg BP Sitting (Post-Dialysis) 139/61 mmHg Concurrent Access: falseAV Fistula Upper Arm (Left) Arterial BP Standing (Pre-Dialysis) 141/57 mmHg Sitti ng Heart Rate Post-Dialysis 68 BPM Sitting Heart Rate Pre-Dialysis 70 BPM Temperatu re Post-Dialysis 97.8 degF Standing Heart Rate Pre-Dialysis 74 BPM Temperature Pre-Dialysis 97.8 degF November 27, 2024 In-Center Hemodialysis Treatment [id number]:04:34.000Z [id number]:34:34.000Z BP Sitting (Pre-Dialysis) 141/56 mmHg BP Sitting (Post-Dialysis) 124/55 mmHg Concurrent Access: falseAV Fistula Upper Arm (Left) Arterial BP Standing (Pre-Dialysis) 136/56 mmHg BP Standing (P ost-Dialysis) 116/48 mmHg Sitting Heart Rate Pre-Dialysis 69 BPM Sitting Heart Rate Post-Dialysis 67 BPM Standing Heart Rate Pre-Dialysis 72 BPM Standing Heart Rate Post-Dialysis 68 BPM Temperature Pre-Dialysis 98.1 degF Temperature Post -Dialysis 97.9 degF November 25, 2024 In-Center Hemodialysis Treatment [id number]:03:20.000Z [id number]:24:35.000Z BP Sitting (Pre-Dialysis) 152/60 mmHg BP Sitting (Post-Dialysis) 110/47 mmHg Concurrent Access: falseAV Fistula Upper Arm (Left) Arterial BP Standing (Pre-Dialysis) 152/54 mmHg BP Standing (P ost-Dialysis) 121/47 mmHg Sitting Heart Rate Pre-Dialysis 81 BPM Sitting Heart Rate Post-Dialysis 63 BPM Standing Heart Rate Pre-Dialysis 85 BPM Standing Heart Rate Post-Dialysis 66 BPM Temperature Pre-Dialysis 97.8 degF Temperature Post -Dialysis 97.6 degF November 23, 2024 In-Center Hemodialysis Treatment [id number]:54:45.000Z [id number]:25:35.000Z BP Sitting (Pre-Dialysis) 133/55 mmHg BP Sitting (Post-Dialysis) 147/69 mmHg Concurrent Access: falseAV Fistula Upper Arm (Left) Arterial Sitting Heart Rate Pre-Dialysis 68 BPM Sitting H eart Rate Post-Dialysis 62 BPM Temperature Pre-Dialysis 98.1 degF Temperature Post -Dialysis 97.2 degF November 20, 2024 In-Center Hemodialysis Treatment [id number]:58:00.000Z [id number]:27:24.000Z BP Sitting (Pre-Dialysis) 134/50 mmHg BP Sitting (Post-Dialysis) 121/48 mmHg Concurrent Access: falseAV Fistula Upper Arm (Left) Arterial BP Standing (Pre-Dialysis) 128/49 mmHg Sitti ng Heart Rate Post-Dialysis 61 BPM Sitting Heart Rate Pre-Dialysis 69 BPM Temperatu re Post-Dialysis 98.1 degF Standing Heart Rate Pre-Dialysis 70 BPM Temperature Pre-Dialysis 97.8 degF November 18, 2024 In-Center Hemodialysis Treatment [id number]:02:00.000Z [id number]:34:22.000Z BP Sitting (Pre-Dialysis) 147/55 mmHg BP Sitting (Post-Dialysis) 104/47 mmHg Concurrent Access: falseAV Fistula Upper Arm (Left) Arterial BP Standing (Pre-Dialysis) 146/57 mmHg BP Standing (P ost-Dialysis) 105/43 mmHg Sitting Heart Rate Pre-Dialysis 75 BPM Sitting Heart Rate Post-Dialysis 67 BPM Standing Heart Rate Pre-Dialysis 77 BPM Standing Heart Rate Post-Dialysis 70 BPM Temperature Pre-Dialysis 97.8 degF Temperature Post -Dialysis 97.6 degF November 16, 2024 In-Center Hemodialysis Treatment [id number]:08:58.000Z [id number]:37:00.000Z BP Sitting (Pre-Dialysis) 122/45 mmHg BP Sitting (Post-Dialysis) 117/45 mmHg Concurrent Access: falseAV Fistula Upper Arm (Left) Arterial BP Standing (Pre-Dialysis) 117/42 mmHg BP Standing (P ost-Dialysis) 117/47 mmHg Sitting Heart Rate Pre-Dialysis 72 BPM Sitting Heart Rate Post-Dialysis 64 BPM Standing Heart Rate Pre-Dialysis 73 BPM Standing Heart Rate Post-Dialysis 64 BPM Temperature Pre-Dialysis 98.2 degF Temperature Post -Dialysis 97.3 degF November 13, 2024 In-Center Hemodialysis Treatment [id number]:09:53.000Z [id number]:39:53.000Z BP Sitting (Pre-Dialysis) 114/49 mmHg BP Sitting (Post-Dialysis) 110/45 mmHg Concurrent Access: falseAV Fistula Upper Arm (Left) Arterial BP Standing (Pre-Dialysis) 115/42 mmHg BP Standing (P ost-Dialysis) 108/44 mmHg Sitting Heart Rate Pre-Dialysis 71 BPM Sitting Heart Rate Post-Dialysis 60 BPM Standing Heart Rate Pre-Dialysis 73 BPM Standing Heart Rate Post-Dialysis 69 BPM Temperature Pre-Dialysis 98 degF Temperature Post -Dialysis 97.2 degF November 11, 2024 In-Center Hemodialysis Treatment [id number]:58:00.000Z 3630-36-15Z40:28:00.000Z BP Sitting (Pre-Dialysis) 137/51 mmHg BP Sitting (Post-Dialysis) 134/54 mmHg Concurrent Access: falseAV Fistula Upper Arm (Left) Arterial BP Standing (Pre-Dialysis) 130/47 mmHg Sitti ng Heart Rate Post-Dialysis 68 BPM Sitting Heart Rate Pre-Dialysis 81 BPM Temperatu re Post-Dialysis 97.8 degF Standing Heart Rate Pre-Dialysis 83 BPM Temperature Pre-Dialysis 97.5 degF November 09, 2024 In-Center Hemodialysis Treatment [id number]:12:30.000Z [id number]:40:50.000Z BP Sitting (Pre-Dialysis) 130/57 mmHg BP Sitting (Post-Dialysis) 128/52 mmHg Concurrent Access: falseAV Fistula Upper Arm (Left) Arterial BP Standing (Pre-Dialysis) 120/49 mmHg BP Standing (P ost-Dialysis) 122/49 mmHg Sitting Heart Rate Pre-Dialysis 66 BPM Sitting Heart Rate Post-Dialysis 64 BPM Standing Heart Rate Pre-Dialysis 68 BPM Standing Heart Rate Post-Dialysis 68 BPM Temperature Pre-Dialysis 98.3 degF Temperature Post -Dialysis 98.1 degF November 06, 2024 In-Center Hemodialysis Treatment [id number]:10:47.000Z [id number]:49:57.000Z BP Sitting (Pre-Dialysis) 142/65 mmHg BP Sitting (Post-Dialysis) 126/55 mmHg Concurrent Access: falseAV Fistula Upper Arm (Left) Arterial BP Standing (Pre-Dialysis) 148/68 mmHg BP Standing (P ost-Dialysis) 119/50 mmHg Sitting Heart Rate Pre-Dialysis 74 BPM Sitting Heart Rate Post-Dialysis 63 BPM Standing Heart Rate Pre-Dialysis 77 BPM Standing Heart Rate Post-Dialysis 67 BPM Temperature Pre-Dialysis 98.3 degF Temperature Post -Dialysis 97.6 degF November 04, 2024 In-Center Hemodialysis Treatment [id number]:16:14.000Z [id number]:47:54.000Z BP Sitting (Pre-Dialysis) 135/55 mmHg BP Sitting (Post-Dialysis) 118/48 mmHg Concurrent Access: falseAV Fistula Upper Arm (Left) Arterial Sitting Heart Rate Pre-Dialysis 76 BPM BP Standing (Post-Dialysis) 126/47 mmHg Temperature Pre-Dialysis 98.1 degF Sitting Heart Ra te Post-Dialysis 64 BPM Standing Heart Rate Post-Melanie lysis 65 BPM Temperature Post-Dialysis 98 .2 degF November 02, 2024 In-Center Hemodialysis Treatment [id number]:10:39.000Z 2058-56-54W97:41:04.000Z BP Sitting (Pre-Dialysis) 124/54 mmHg BP Sitting (Post-Dialysis) 116/46 mmHg Concurrent Access: falseAV Fistula Upper Arm (Left) Arterial BP Standing (Pre-Dialysis) 131/54 mmHg BP Standing (P ost-Dialysis) 114/46 mmHg Sitting Heart Rate Pre-Dialysis 77 BPM Sitting Heart Rate Post-Dialysis 67 BPM Standing Heart Rate Pre-Dialysis 77 BPM Standing Heart Rate Post-Dialysis 71 BPM Temperature Pre-Dialysis 98 degF Temperature Post -Dialysis 97.2 degF October 30, 2024 In-Center Hemodialysis Treatment [id number]:03:48.000Z [id number]:44:38.000Z BP Sitting (Pre-Dialysis) 137/51 mmHg BP Sitting (Post-Dialysis) 129/49 mmHg Concurrent Access: falseAV Fistula Upper Arm (Left) Arterial BP Standing (Pre-Dialysis) 144/50 mmHg Sitting Heart Rate Post-Dialysis 63 BPM Sitting Heart Rate Pre-Dialysis 73 BPM Temperatu re Post-Dialysis 98 degF Standing Heart Rate Pre-Dialysis 74 BPM Temperature Pre-Dialysis 97.8 degF October 28, 2024 In-Center Hemodialysis Treatment [id number]:06:00.000Z [id number]:38:44.000Z BP Sitting (Pre-Dialysis) 141/59 mmHg BP Sitting (Post-Dialysis) 135/56 mmHg Concurrent Access: falseAV Fistula Upper Arm (Left) Arterial BP Standing (Pre-Dialysis) 141/59 mmHg BP Standing (P ost-Dialysis) 142/58 mmHg Sitting Heart Rate Pre-Dialysis 65 BPM Sitting Heart Rate Post-Dialysis 60 BPM Standing Heart Rate Pre-Dialysis 66 BPM Standing Heart Rate Post-Dialysis 65 BPM Temperature Pre-Dialysis 97.4 degF Temperature Post -Dialysis 97.2 degF October 26, 2024 In-Center Hemodialysis Treatment [id number]:12:04.000Z [id number]:38:19.000Z BP Sitting (Pre-Dialysis) 140/54 mmHg BP Sitting (Post-Dialysis) 141/58 mmHg Concurrent Access: falseAV Fistula Upper Arm (Left) Arterial BP Standing (Pre-Dialysis) 140/57 mmHg Sitti ng Heart Rate Post-Dialysis 65 BPM Sitting Heart Rate Pre-Dialysis 69 BPM Temperatu re Post-Dialysis 97.7 degF Standing Heart Rate Pre-Dialysis 69 BPM Temperature Pre-Dialysis 97.8 degF October 23, 2024 In-Center Hemodialysis Treatment [id number]:02:52.000Z [id number]:31:37.000Z BP Sitting (Pre-Dialysis) 125/56 mmHg BP Sitting (Post-Dialysis) 140/54 mmHg Concurrent Access: falseAV Fistula Upper Arm (Left) Arterial BP Standing (Pre-Dialysis) 127/49 mmHg Sitti ng Heart Rate Post-Dialysis 63 BPM Sitting Heart Rate Pre-Dialysis 70 BPM Temperatu re Post-Dialysis 97.2 degF Standing Heart Rate Pre-Dialysis 71 BPM Temperature Pre-Dialysis 97.2 degF October 21, 2024 In-Center Hemodialysis Treatment [id number]:08:49.000Z [id number]:39:39.000Z BP Sitting (Pre-Dialysis) 143/58 mmHg BP Sitting (Post-Dialysis) 157/71 mmHg Concurrent Access: falseAV Fistula Upper Arm (Left) Arterial BP Standing (Pre-Dialysis) 142/63 mmHg BP Standing (P ost-Dialysis) 158/65 mmHg Sitting Heart Rate Pre-Dialysis 68 BPM Sitting Heart Rate Post-Dialysis 66 BPM Standing Heart Rate Pre-Dialysis 68 BPM Standing Heart Rate Post-Dialysis 66 BPM Temperature Pre-Dialysis 97.9 degF Temperature Post -Dialysis 98.2 degF October 16, 2024 In-Center Hemodialysis Treatment [id number]:08:25.000Z [id number]:48:00.000Z BP Sitting (Pre-Dialysis) 136/54 mmHg BP Sitting (Post-Dialysis) 121/42 mmHg Concurrent Access: falseAV Fistula Upper Arm (Left) Arterial BP Standing (Pre-Dialysis) 131/54 mmHg BP Standing (P ost-Dialysis) 111/43 mmHg Sitting Heart Rate Pre-Dialysis 75 BPM Sitting Heart Rate Post-Dialysis 70 BPM Standing Heart Rate Pre-Dialysis 75 BPM Standing Heart Rate Post-Dialysis 70 BPM Temperature Pre-Dialysis 98.5 degF Temperature Post -Dialysis 98.7 degF October 14, 2024 In-Center Hemodialysis Treatment [id number]:14:14.000Z [id number]:44:14.000Z BP Sitting (Pre-Dialysis) 122/49 mmHg BP Sitting (Post-Dialysis) 143/56 mmHg Concurrent Access: falseAV Fistula Upper Arm (Left) Arterial BP Standing (Pre-Dialysis) 125/48 mmHg BP Standing (P ost-Dialysis) 130/55 mmHg Sitting Heart Rate Pre-Dialysis 68 BPM Sitting Heart Rate Post-Dialysis 75 BPM Standing Heart Rate Pre-Dialysis 71 BPM Standing Heart Rate Post-Dialysis 75 BPM Temperature Pre-Dialysis 97.8 degF Temperature Post -Dialysis 98 degF October 12, 2024 In-Center Hemodialysis Treatment [id number]:11:00.000Z [id number]:07:24.000Z BP Sitting (Pre-Dialysis) 127/46 mmHg BP Sitting (Post-Dialysis) 123/45 mmHg Concurrent Access: falseAV Fistula Upper Arm (Left) Arterial BP Standing (Pre-Dialysis) 128/44 mmHg BP Standing (P ost-Dialysis) 112/46 mmHg Sitting Heart Rate Pre-Dialysis 68 BPM Sitting Heart Rate Post-Dialysis 65 BPM Standing Heart Rate Pre-Dialysis 68 BPM Standing Heart Rate Post-Dialysis 71 BPM Temperature Pre-Dialysis 97.5 degF Temperature Post -Dialysis 97.4 degF October 09, 2024 In-Center Hemodialysis Treatment [id number]:12:34.000Z [id number]:39:39.000Z BP Sitting (Pre-Dialysis) 131/53 mmHg BP Sitting (Post-Dialysis) 105/41 mmHg Concurrent Access: falseAV Fistula Upper Arm (Left) Arterial BP Standing (Pre-Dialysis) 131/49 mmHg BP Standing (P ost-Dialysis) 119/50 mmHg Sitting Heart Rate Pre-Dialysis 72 BPM Sitting Heart Rate Post-Dialysis 64 BPM Standing Heart Rate Pre-Dialysis 72 BPM Standing Heart Rate Post-Dialysis 67 BPM Temperature Pre-Dialysis 97.4 degF Temperature Post -Dialysis 97.8 degF October 07, 2024 In-Center Hemodialysis Treatment [id number]:14:47.000Z [id number]:43:57.000Z BP Sitting (Pre-Dialysis) 131/52 mmHg BP Sitting (Post-Dialysis) 137/55 mmHg Concurrent Access: falseAV Fistula Upper Arm (Left) Arterial BP Standing (Pre-Dialysis) 129/51 mmHg BP Standing (P ost-Dialysis) 141/55 mmHg Sitting Heart Rate Pre-Dialysis 67 BPM Sitting Heart Rate Post-Dialysis 67 BPM Standing Heart Rate Pre-Dialysis 71 BPM Standing Heart Rate Post-Dialysis 72 BPM Temperature Pre-Dialysis 98.4 degF Temperature Post -Dialysis 98.5 degF October 05, 2024 In-Center Hemodialysis Treatment [id number]:05:51.000Z [id number]:36:41.000Z BP Sitting (Pre-Dialysis) 138/61 mmHg BP Sitting (Post-Dialysis) 127/44 mmHg Concurrent Access: falseAV Fistula Upper Arm (Left) Arterial BP Standing (Pre-Dialysis) 122/49 mmHg Sitting Heart Rate Post-Dialysis 64 BPM Sitting Heart Rate Pre-Dialysis 71 BPM Temperatu re Post-Dialysis 98 degF Standing Heart Rate Pre-Dialysis 72 BPM Temperature Pre-Dialysis 97.8 degF October 02, 2024 In-Center Hemodialysis Treatment [id number]:00:00.000Z [id number]:35:00.000Z BP Sitting (Pre-Dialysis) 128/50 mmHg BP Sitting (Post-Dialysis) 143/62 mmHg Concurrent Access: falseAV Fistula Upper Arm (Left) Arterial Sitting Heart Rate Pre-Dialysis 71 BPM BP Standi ng (Post-Dialysis) 139/58 mmHg Sitting Heart Rate Post-Dial ysis 67 BPM Standing Heart Rate Post-Melanie lysis 69 BPM September 30, 2024 In-Center Hemodialysis Treatment [id number]:10:00.000Z [id number]:35:00.000Z BP Sitting (Pre-Dialysis) 150/64 mmHg BP Sitting (Post-Dialysis) 158/67 mmHg Concurrent Access: falseAV Fistula Upper Arm (Left) Arterial BP Standing (Pre-Dialysis) 149/62 mmHg BP Standing (P ost-Dialysis) 150/64 mmHg Sitting Heart Rate Pre-Dialysis 74 BPM Sitting Heart Rate Post-Dialysis 75 BPM Standing Heart Rate Pre-Dialysis 73 BPM Standing Heart Rate Post-Dialysis 74 BPM September 28, 2024 In-Center Hemodialysis Treatment [id number]:38:00.000Z [id number]:09:00.000Z BP Sitting (Pre-Dialysis) 112/52 mmHg BP Sitting (Post-Dialysis) 124/59 mmHg Concurrent Access: falseAV Fistula Upper Arm (Left) Arterial BP Standing (Pre-Dialysis) 127/55 mmHg Sitting Heart Rate Post-Dialysis 65 BPM Sitting Heart Rate Pre-Dialysis 67 BPM Standing Heart Rate Pre-Dialysis 66 BPM September 24, 2024 Home Hemodialysis Training BP Sitting (Pre-Dialysis) 116/42 mmHg BP Sitting (Post-Dialysis) 106/38 mmHg Concurrent Access: NoAV Fistula (Upper Arm (Left)) ArterialAV Fistula (Upper Arm (Left)) Venous BP Standing (Pre-Dialysis) 101/38 mmHg BP Standing (P ost-Dialysis) 106/33 mmHg Sitting Heart Rate Pre-Dialysis 76 BPM Sitting Heart Rate Post-Dialysis 70 BPM Standing Heart Rate Pre-Dialysis 76 BPM Standing Heart Rate Post-Dialysis 69 BPM Temperature Pre-Dialysis 98 degF Temperature Post -Dialysis 97.8 degF Weight Pre-Dialysis 74.1 kg September 23, 2024 Home Hemodialysis Training BP Sitting (Pre-Dialysis) 123/47 mmHg BP Sitting (Post-Dialysis) 111/38 mmHg Concurrent Access: NoAV Fistula (Upper Arm (Left)) ArterialAV Fistula (Upper Arm (Left)) Venous BP Standing (Pre-Dialysis) 111/42 mmHg BP Standing (P ost-Dialysis) 101/38 mmHg Sitting Heart Rate Pre-Dialysis 77 BPM Sitting Heart Rate Post-Dialysis 73 BPM Standing Heart Rate Pre-Dialysis 79 BPM Standing Heart Rate Post-Dialysis 75 BPM Temperature Pre-Dialysis 98 degF Temperature Post -Dialysis 98.4 degF Weight Pre-Dialysis 74.1 kg September 21, 2024 Home Hemodialysis Training BP Sitting (Pre-Dialysis) 122/42 mmHg BP Sitting (Post-Dialysis) 104/38 mmHg Concurrent Access: NoAV Fistula (Upper Arm (Left)) ArterialAV Fistula (Upper Arm (Left)) Venous BP Standing (Pre-Dialysis) 113/40 mmHg BP Standing (P ost-Dialysis) 100/34 mmHg Sitting Heart Rate Pre-Dialysis 71 BPM Sitting Heart Rate Post-Dialysis 74 BPM Standing Heart Rate Pre-Dialysis 72 BPM Standing Heart Rate Post-Dialysis 72 BPM Temperature Pre-Dialysis 98.1 degF Temperature Post -Dialysis 96.5 degF Weight Pre-Dialysis 76.5 kg September 20, 2024 Home Hemodialysis Training BP Sitting (Pre-Dialysis) 141/50 mmHg BP Sitting (Post-Dialysis) 122/47 mmHg Concurrent Access: NoAV Fistula (Upper Arm (Left)) ArterialAV Fistula (Upper Arm (Left)) Venous BP Standing (Pre-Dialysis) 129/46 mmHg BP Standing (P ost-Dialysis) 112/40 mmHg Sitting Heart Rate Pre-Dialysis 84 BPM Sitting Heart Rate Post-Dialysis 73 BPM Standing Heart Rate Pre-Dialysis 83 BPM Standing Heart Rate Post-Dialysis 72 BPM Temperature Pre-Dialysis 97.5 degF Temperature Post -Dialysis 98.5 degF Weight Pre-Dialysis 77.6 kg September 17, 2024 Home Hemodialysis Training BP Sitting (Pre-Dialysis) 122/50 mmHg BP Sitting (Post-Dialysis) 132/49 mmHg Concurrent Access: NoAV Fistula (Upper Arm (Left)) ArterialAV Fistula (Upper Arm (Left)) Venous BP Standing (Pre-Dialysis) 117/46 mmHg BP Standing (P ost-Dialysis) 112/43 mmHg Sitting Heart Rate Pre-Dialysis 79 BPM Sitting Heart Rate Post-Dialysis 76 BPM Standing Heart Rate Pre-Dialysis 81 BPM Standing Heart Rate Post-Dialysis 76 BPM Temperature Pre-Dialysis 98 degF Temperature Post -Dialysis 98.6 degF Weight Pre-Dialysis 75 kg September 15, 2024 Home Hemodialysis Training BP Sitting (Pre-Dialysis) 130/44 mmHg BP Sitting (Post-Dialysis) 130/47 mmHg Concurrent Access: NoAV Fistula (Upper Arm (Left)) ArterialAV Fistula (Upper Arm (Left)) Venous BP Standing (Pre-Dialysis) 122/44 mmHg BP Standing (P ost-Dialysis) 115/41 mmHg Sitting Heart Rate Pre-Dialysis 76 BPM Sitting Heart Rate Post-Dialysis 73 BPM Standing Heart Rate Pre-Dialysis 78 BPM Standing Heart Rate Post-Dialysis 74 BPM Temperature Pre-Dialysis 97.3 degF Temperature Post -Dialysis 98.7 degF Weight Pre-Dialysis 74.7 kg September 14, 2024 Home Hemodialysis Training BP Sitting (Pre-Dialysis) 125/46 mmHg BP Sitting (Post-Dialysis) 126/42 mmHg Concurrent Access: NoAV Fistula (Upper Arm (Left)) ArterialAV Fistula (Upper Arm (Left)) Venous BP Standing (Pre-Dialysis) 114/48 mmHg BP Standing (P ost-Dialysis) 102/38 mmHg Sitting Heart Rate Pre-Dialysis 86 BPM Sitting Heart Rate Post-Dialysis 76 BPM Standing Heart Rate Pre-Dialysis 85 BPM Standing Heart Rate Post-Dialysis 76 BPM Temperature Pre-Dialysis 98.3 degF Temperature Post -Dialysis 98.4 degF Weight Pre-Dialysis 73.6 kg September 13, 2024 Home Hemodialysis Training BP Sitting (Pre-Dialysis) 102/42 mmHg BP Sitting (Post-Dialysis) 115/41 mmHg Concurrent Access: NoAV Fistula (Upper Arm (Left)) ArterialAV Fistula (Upper Arm (Left)) Venous Sitting Heart Rate Pre-Dialysis 69 BPM BP Standing (Post-Dialysis) 107/37 mmHg Temperature Pre-Dialysis 97.6 degF Sitting Heart Ra te Post-Dialysis 74 BPM Weight Pre-Dialysis 73.7 kg Standing Heart Rate P ost-Dialysis 75 BPM Temperature Post-Dialysis 97 .9 degF September 06, 2024 Home Hemodialysis Training BP Sitting (Pre-Dialysis) 110/46 mmHg BP Sitting (Post-Dialysis) 100/39 mmHg Concurrent Access: NoAV Fistula (Upper Arm (Left)) ArterialAV Fistula (Upper Arm (Left)) Venous BP Standing (Pre-Dialysis) 103/40 mmHg BP Standing (P ost-Dialysis) 74/30 mmHg Sitting Heart Rate Pre-Dialysis 63 BPM Sitting Heart Rate Post-Dialysis 61 BPM Standing Heart Rate Pre-Dialysis 64 BPM Standing Heart Rate Post-Dialysis 62 BPM Temperature Pre-Dialysis 97.3 degF Temperature Post -Dialysis 97.6 degF Weight Pre-Dialysis 74.3 kg September 03, 2024 Home Hemodialysis Training BP Sitting (Pre-Dialysis) 99/42 mmHg BP Sitting (Post-Dialysis) 116/51 mmHg Concurrent Access: NoAV Fistula (Upper Arm (Left)) ArterialAV Fistula (Upper Arm (Left)) Venous BP Standing (Pre-Dialysis) 97/38 mmHg BP Standing (P ost-Dialysis) 106/37 mmHg Sitting Heart Rate Pre-Dialysis 62 BPM Sitting Heart Rate Post-Dialysis 62 BPM Standing Heart Rate Pre-Dialysis 64 BPM Standing Heart Rate Post-Dialysis 64 BPM Temperature Pre-Dialysis 97.6 degF Temperature Post -Dialysis 97.9 degF Weight Pre-Dialysis 73 kg DIALYSIS ORDER Dialysis Procedure Orders Type of Dialysis Procedure Order Order Date/Time Observations In-Center Hemodialysis Treatment 2024 Target Weight 80.5 kg Dialysate Flow Rate 500 mL/min Blood Flow Rate 350 mL/min Treatment Time 210 min(total) Max UF Rate 13 mL/kg/hr Base Sodium Dialysate Base Sodium 138 mE q/L dialysate_temp 37 C BiCarb Dialysate BiCarbonate 38 meq/L Access Concurrent No Arterial Access AV Fistula (Upper Ar m (Left)) Venous Access AV Fistula (Upper Ar m (Left)) Arterial Needle Display NIPRO, TULIP, 16 G x 1, SHARP , TWIN Venous Needle NIPRO, TULIP, 16G x 1, SHARP , TWIN Dialyzer Nipro Elisio 15H 126 4 [email or web address] Dialysate Bath Potassium Potassium 3 mEq /L Dialysate Bath Calcium Calcium 2.5 mEq/L In-Center Hemodialysis [id number] Observation Value Target Weight 76 kg Dialysate Flow Rate 500 mL/min Blood Flow Rate 350 mL/min Treatment Time 210 min(total) Max UF Rate 13 mL/kg/hr Base Sodium Dialysate Base Sodium 138 mE q/L dialysate_temp 37 C BiCarb Dialysate BiCarbonate 38 meq/L Access Concurrent No Arterial Access AV Fistula (Upper Ar m (Left)) Venous Access AV Fistula (Upper Ar m (Left)) Arterial Needle Display NIPRO, TULIP, 16 G x 1, SHARP , TWIN Venous Needle NIPRO, TULIP, 16G x 1, SHARP , TWIN Dialyzer Nipro Elisio 15H 126 4 [email or web address]_id Dialysate Bath Potassium Potassium 3 mEq /L Dialysate Bath Calcium Calcium 2.5 mEq/L Results Adequacy Description Draw Date Result/Unit Status Ref Range Result Comments AMPUTATE FACTOR 2025-03-23 13:49:38 0 F WEIGHT - PRE DAY 1 2025-03-23 13:49:38 81.2 kg F CURRENT KRU 2025-03-23 13:49:38 F Residual kt/v 2025-03-23 13:49:38 F KT/V PRESCRIBED 2025-03-23 13:49:38 1.54 F stdKt/V (DIAL) 2025-03-23 13:49:38 N/A F PRESCRIBED DAYS/WEEK 2025-03-23 13:49:38 3 Day/Wk F WEIGHT (KG) 2025-03-23 13:49:38 80.5 kg F TOTAL HOURS/WEEK DIALYSIS 2025-03-23 13:49:38 10 hrs F VM (KT/V MEAN VOL) 2025-03-23 13:49:38 44.2 F stdKT/V Total 2025-03-23 13:49:38 N/A F VT (KT/V TX VOL) 2025-03-23 13:49:38 45.3 L F WEIGHT - POST DAY 1 2025-03-23 13:49:38 80.6 kg F Total Kt/V 2025-03-23 13:49:38 1.19 F TBW (Nascimento) 2025-03-23 13:49:38 41.04 Liters F BSA MARIELLE 2025-03-23 13:49:38 1.96 sq m F Std Renal KT/V 2025-03-23 13:49:38 N/A F DIALYZER FLOW-QD 2025-03-23 13:49:38 550 mL/min F Dialyzer YULI 2025-03-23 13:49:38 1264 Calc F nPCR 2025-03-23 13:49:38 1.12 G/KG/D F eKt/V 2025-03-23 13:49:38 1.02 F spKt/V 2025-03-23 13:49:38 1.19 F PATIENT AGE 2025-03-23 13:49:38 75 Years F URR% 2025-03-23 13:49:38 67 % F BLOOD FLOW-QWB 2025-03-23 13:49:38 349 F HEIGHT IN INCHES 2025-03-23 13:49:38 69 Inches F LENGTH OF DIALYSIS 2025-03-23 13:49:38 210 min F Urea nitrogen [Mass/volume] in Serum or Plasma --post dialysis 2025-03-23 13:31:19 28 mg/dL F 9.0-23.0 Urea nitrogen [Mass/volume] in Serum or Plasma 2025-03-23 13:29:15 84 mg/dL F 9.0-23.0 URR% 2025-03-17 02:04:11 66 % F Dialyzer YULI 2025-03-17 02:04:11 1264 Calc F DIALYZER FLOW-QD 2025-03-17 02:04:11 500 mL/min F LENGTH OF DIALYSIS 2025-03-17 02:04:11 210 min F PATIENT AGE 2025-03-17 02:04:11 75 Years F BSA MARIELLE 2025-03-17 02:04:11 1.96 sq m F WEIGHT - POST DAY 1 2025-03-17 02:04:11 80.4 kg F HEIGHT IN INCHES 2025-03-17 02:04:11 69 Inches F WEIGHT (KG) 2025-03-17 02:04:11 80.5 kg F WEIGHT - PRE DAY 1 2025-03-17 02:04:11 80.3 kg F PRESCRIBED DAYS/WEEK 2025-03-17 02:04:11 3 Day/Wk F VT (KT/V TX VOL) 2025-03-17 02:04:11 45.9 L F VM (KT/V MEAN VOL) 2025-03-17 02:04:11 43.8 F Residual kt/v 2025-03-17 02:04:11 F Unable to calculate: Post BUN lab result is unknown KT/V PRESCRIBED 2025-03-17 02:04:11 1.54 F Total Kt/V 2025-03-17 02:04:11 1.16 F nPCR 2025-03-17 02:04:11 0.92 G/KG/D F AMPUTATE FACTOR 2025-03-17 02:04:11 0 F TBW (Nascimento) 2025-03-17 02:04:11 40.97 Liters F spKt/V 2025-03-17 02:04:11 1.16 F eKt/V 2025-03-17 02:04:11 0.99 F Std Renal KT/V 2025-03-17 02:04:11 N/A F stdKt/V (DIAL) 2025-03-17 02:04:11 N/A F stdKT/V Total 2025-03-17 02:04:11 N/A F TOTAL HOURS/WEEK DIALYSIS 2025-03-17 02:04:11 10 hrs F BLOOD FLOW-QWB 2025-03-17 02:04:11 349 F CURRENT KRU 2025-03-17 02:04:11 F Unable to calculate: Post BUN lab result is unknown URR% 2025-03-17 02:04:11 66 % F LENGTH OF DIALYSIS 2025-03-17 02:04:11 210 min F DIALYZER FLOW-QD 2025-03-17 02:04:11 500 mL/min F Dialyzer YULI 2025-03-17 02:04:11 1264 Calc F PATIENT AGE 2025-03-17 02:04:11 75 Years F BSA MARIELLE 2025-03-17 02:04:11 1.96 sq m F WEIGHT - PRE DAY 1 2025-03-17 02:04:11 80.3 kg F HEIGHT IN INCHES 2025-03-17 02:04:11 69 Inches F WEIGHT - POST DAY 1 2025-03-17 02:04:11 80.4 kg F PRESCRIBED DAYS/WEEK 2025-03-17 02:04:11 3 Day/Wk F VT (KT/V TX VOL) 2025-03-17 02:04:11 45.9 L F WEIGHT (KG) 2025-03-17 02:04:11 80.5 kg F VM (KT/V MEAN VOL) 2025-03-17 02:04:11 43.8 F Residual kt/v 2025-03-17 02:04:11 F Unable to calculate: Post BUN lab result is unknown KT/V PRESCRIBED 2025-03-17 02:04:11 1.54 F AMPUTATE FACTOR 2025-03-17 02:04:11 0 F Total Kt/V 2025-03-17 02:04:11 1.16 F nPCR 2025-03-17 02:04:11 0.92 G/KG/D F TBW (Nascimento) 2025-03-17 02:04:11 40.97 Liters F spKt/V 2025-03-17 02:04:11 1.16 F eKt/V 2025-03-17 02:04:11 0.99 F Std Renal KT/V 2025-03-17 02:04:11 N/A F stdKt/V (DIAL) 2025-03-17 02:04:11 N/A F stdKT/V Total 2025-03-17 02:04:11 N/A F TOTAL HOURS/WEEK DIALYSIS 2025-03-17 02:04:11 10 hrs F BLOOD FLOW-QWB 2025-03-17 02:04:11 349 F CURRENT KRU 2025-03-17 02:04:11 F Unable to calculate: Post BUN lab result is unknown Urea nitrogen [Mass/volume] in Serum or Plasma --post dialysis 2025-03-17 01:54:15 23 mg/dL F 9.0-23.0 Urea nitrogen [Mass/volume] in Serum or Plasma --post dialysis 2025-03-17 01:54:15 23 mg/dL F 9.0-23.0 Urea nitrogen [Mass/volume] in Serum or Plasma 2025-03-17 00:34:18 68 mg/dL F 9.0-23.0 Urea nitrogen [Mass/volume] in Serum or Plasma 2025-03-17 00:34:18 68 mg/dL F 9.0-23.0 Creatinine [Mass/volume] in Serum or Plasma 2025-02-23 14:38:25 7.46 mg/dL F 0.7-1.3 Creatinine [Mass/volume] in Serum or Plasma 2025-02-23 14:38:25 7.46 mg/dL F 0.7-1.3 URR% 2025-02-16 16:25:44 68 % F DIALYZER FLOW-QD 2025-02-16 16:25:44 500 mL/min F Dialyzer YULI 2025-02-16 16:25:44 1264 Calc F LENGTH OF DIALYSIS 2025-02-16 16:25:44 207 min F PATIENT AGE 2025-02-16 16:25:44 75 Years F BSA MARIELLE 2025-02-16 16:25:44 1.95 sq m F WEIGHT - POST DAY 1 2025-02-16 16:25:44 79.4 kg F HEIGHT IN INCHES 2025-02-16 16:25:44 69 Inches F WEIGHT (KG) 2025-02-16 16:25:44 79.5 kg F WEIGHT - PRE DAY 1 2025-02-16 16:25:44 80.6 kg F PRESCRIBED DAYS/WEEK 2025-02-16 16:25:44 3 Day/Wk F VT (KT/V TX VOL) 2025-02-16 16:25:44 42.1 L F VM (KT/V MEAN VOL) 2025-02-16 16:25:44 43.1 F KT/V PRESCRIBED 2025-02-16 16:25:44 1.53 F Total Kt/V 2025-02-16 16:25:44 1.25 F Residual kt/v 2025-02-16 16:25:44 F nPCR 2025-02-16 16:25:44 1.07 G/KG/D F AMPUTATE FACTOR 2025-02-16 16:25:44 0 F TBW (Nascimento) 2025-02-16 16:25:44 40.64 Liters F spKt/V 2025-02-16 16:25:44 1.25 F eKt/V 2025-02-16 16:25:44 1.07 F stdKt/V (DIAL) 2025-02-16 16:25:44 N/A F Std Renal KT/V 2025-02-16 16:25:44 N/A F TOTAL HOURS/WEEK DIALYSIS 2025-02-16 16:25:44 10 hrs F stdKT/V Total 2025-02-16 16:25:44 N/A F BLOOD FLOW-QWB 2025-02-16 16:25:44 349 F CURRENT KRU 2025-02-16 16:25:44 F URR% 2025-02-16 16:25:44 68 % F DIALYZER FLOW-QD 2025-02-16 16:25:44 500 mL/min F Dialyzer YULI 2025-02-16 16:25:44 1264 Calc F LENGTH OF DIALYSIS 2025-02-16 16:25:44 207 min F BSA MARIELLE 2025-02-16 16:25:44 1.95 sq m F PATIENT AGE 2025-02-16 16:25:44 75 Years F WEIGHT - POST DAY 1 2025-02-16 16:25:44 79.4 kg F WEIGHT - PRE DAY 1 2025-02-16 16:25:44 80.6 kg F WEIGHT (KG) 2025-02-16 16:25:44 79.5 kg F HEIGHT IN INCHES 2025-02-16 16:25:44 69 Inches F VT (KT/V TX VOL) 2025-02-16 16:25:44 42.1 L F PRESCRIBED DAYS/WEEK 2025-02-16 16:25:44 3 Day/Wk F VM (KT/V MEAN VOL) 2025-02-16 16:25:44 43.1 F Residual kt/v 2025-02-16 16:25:44 F KT/V PRESCRIBED 2025-02-16 16:25:44 1.53 F nPCR 2025-02-16 16:25:44 1.07 G/KG/D F Total Kt/V 2025-02-16 16:25:44 1.25 F TBW (Nascimento) 2025-02-16 16:25:44 40.64 Liters F spKt/V 2025-02-16 16:25:44 1.25 F AMPUTATE FACTOR 2025-02-16 16:25:44 0 F eKt/V 2025-02-16 16:25:44 1.07 F Std Renal KT/V 2025-02-16 16:25:44 N/A F stdKt/V (DIAL) 2025-02-16 16:25:44 N/A F stdKT/V Total 2025-02-16 16:25:44 N/A F TOTAL HOURS/WEEK DIALYSIS 2025-02-16 16:25:44 10 hrs F BLOOD FLOW-QWB 2025-02-16 16:25:44 349 F CURRENT KRU 2025-02-16 16:25:44 F Urea nitrogen [Mass/volume] in Serum or Plasma 2025-02-16 16:24:12 77 mg/dL F 9.0-23.0 Urea nitrogen [Mass/volume] in Serum or Plasma 2025-02-16 16:24:12 77 mg/dL F 9.0-23.0 Urea nitrogen [Mass/volume] in Serum or Plasma --post dialysis 2025-02-16 15:46:20 25 mg/dL F 9.0-23.0 Urea nitrogen [Mass/volume] in Serum or Plasma --post dialysis 2025-02-16 15:46:20 25 mg/dL F 9.0-23.0 DIALYZER FLOW-QD 2025-02-10 20:40:46 500 mL/min F URR% 2025-02-10 20:40:46 66 % F Dialyzer YULI 2025-02-10 20:40:46 1264 Calc F LENGTH OF DIALYSIS 2025-02-10 20:40:46 211 min F PATIENT AGE 2025-02-10 20:40:46 75 Years F BSA MARIELLE 2025-02-10 20:40:46 1.95 sq m F WEIGHT - POST DAY 1 2025-02-10 20:40:46 79.8 kg F WEIGHT - PRE DAY 1 2025-02-10 20:40:46 80.9 kg F HEIGHT IN INCHES 2025-02-10 20:40:46 69 Inches F PRESCRIBED DAYS/WEEK 2025-02-10 20:40:46 3 Day/Wk F VT (KT/V TX VOL) 2025-02-10 20:40:46 44.9 L F VM (KT/V MEAN VOL) 2025-02-10 20:40:46 43.5 F WEIGHT (KG) 2025-02-10 20:40:46 79.5 kg F Residual kt/v 2025-02-10 20:40:46 F KT/V PRESCRIBED 2025-02-10 20:40:46 1.56 F nPCR 2025-02-10 20:40:46 1.28 G/KG/D F Total Kt/V 2025-02-10 20:40:46 1.19 F AMPUTATE FACTOR 2025-02-10 20:40:46 0 F TBW (Nascimento) 2025-02-10 20:40:46 40.77 Liters F spKt/V 2025-02-10 20:40:46 1.19 F eKt/V 2025-02-10 20:40:46 1.02 F stdKt/V (DIAL) 2025-02-10 20:40:46 N/A F Std Renal KT/V 2025-02-10 20:40:46 N/A F stdKT/V Total 2025-02-10 20:40:46 N/A F TOTAL HOURS/WEEK DIALYSIS 2025-02-10 20:40:46 10 hrs F BLOOD FLOW-QWB 2025-02-10 20:40:46 349 F CURRENT KRU 2025-02-10 20:40:46 F Urea nitrogen [Mass/volume] in Serum or Plasma --post dialysis 2025-02-10 16:24:18 33 mg/dL F 9.0-23.0 Urea nitrogen [Mass/volume] in Serum or Plasma 2025-02-10 16:21:18 97 mg/dL F 9.0-23.0 Creatinine [Mass/volume] in Serum or Plasma 2025-01-26 14:02:23 7.94 mg/dL F 0.7-1.3 Creatinine [Mass/volume] in Serum or Plasma 2025-01-26 14:02:23 7.94 mg/dL F 0.7-1.3 URR% 2025-01-12 20:18:06 67 % F DIALYZER FLOW-QD 2025-01-12 20:18:06 500 mL/min F Dialyzer YULI 2025-01-12 20:18:06 1264 Calc F LENGTH OF DIALYSIS 2025-01-12 20:18:06 209 min F PATIENT AGE 2025-01-12 20:18:06 75 Years F BSA MARIELLE 2025-01-12 20:18:06 1.95 sq m F HEIGHT IN INCHES 2025-01-12 20:18:06 69 Inches F WEIGHT - PRE DAY 1 2025-01-12 20:18:06 82.3 kg F WEIGHT - POST DAY 1 2025-01-12 20:18:06 80.1 kg F WEIGHT (KG) 2025-01-12 20:18:06 79.5 kg F PRESCRIBED DAYS/WEEK 2025-01-12 20:18:06 3 Day/Wk F VT (KT/V TX VOL) 2025-01-12 20:18:06 41.7 L F VM (KT/V MEAN VOL) 2025-01-12 20:18:06 43 F Residual kt/v 2025-01-12 20:18:06 F Unable to calculate: Post BUN lab result is unknown KT/V PRESCRIBED 2025-01-12 20:18:06 1.55 F Total Kt/V 2025-01-12 20:18:06 1.27 F AMPUTATE FACTOR 2025-01-12 20:18:06 0 F TBW (Nascimento) 2025-01-12 20:18:06 40.87 Liters F nPCR 2025-01-12 20:18:06 1.23 G/KG/D F stdKt/V (DIAL) 2025-01-12 20:18:06 N/A F spKt/V 2025-01-12 20:18:06 1.27 F eKt/V 2025-01-12 20:18:06 1.09 F Std Renal KT/V 2025-01-12 20:18:06 N/A F stdKT/V Total 2025-01-12 20:18:06 N/A F TOTAL HOURS/WEEK DIALYSIS 2025-01-12 20:18:06 10 hrs F BLOOD FLOW-QWB 2025-01-12 20:18:06 349 F CURRENT KRU 2025-01-12 20:18:06 F Unable to calculate: Post BUN lab result is unknown URR% 2025-01-12 20:18:06 67 % F DIALYZER FLOW-QD 2025-01-12 20:18:06 500 mL/min F Dialyzer YULI 2025-01-12 20:18:06 1264 Calc F LENGTH OF DIALYSIS 2025-01-12 20:18:06 209 min F PATIENT AGE 2025-01-12 20:18:06 75 Years F BSA MARIELLE 2025-01-12 20:18:06 1.95 sq m F WEIGHT - POST DAY 1 2025-01-12 20:18:06 80.1 kg F WEIGHT - PRE DAY 1 2025-01-12 20:18:06 82.3 kg F HEIGHT IN INCHES 2025-01-12 20:18:06 69 Inches F PRESCRIBED DAYS/WEEK 2025-01-12 20:18:06 3 Day/Wk F WEIGHT (KG) 2025-01-12 20:18:06 79.5 kg F VM (KT/V MEAN VOL) 2025-01-12 20:18:06 43 F VT (KT/V TX VOL) 2025-01-12 20:18:06 41.7 L F KT/V PRESCRIBED 2025-01-12 20:18:06 1.55 F Residual kt/v 2025-01-12 20:18:06 F Unable to calculate: Post BUN lab result is unknown nPCR 2025-01-12 20:18:06 1.23 G/KG/D F Total Kt/V 2025-01-12 20:18:06 1.27 F AMPUTATE FACTOR 2025-01-12 20:18:06 0 F TBW (Nascimento) 2025-01-12 20:18:06 40.87 Liters F eKt/V 2025-01-12 20:18:06 1.09 F spKt/V 2025-01-12 20:18:06 1.27 F stdKt/V (DIAL) 2025-01-12 20:18:06 N/A F Std Renal KT/V 2025-01-12 20:18:06 N/A F stdKT/V Total 2025-01-12 20:18:06 N/A F BLOOD FLOW-QWB 2025-01-12 20:18:06 349 F TOTAL HOURS/WEEK DIALYSIS 2025-01-12 20:18:06 10 hrs F CURRENT KRU 2025-01-12 20:18:06 F Unable to calculate: Post BUN lab result is unknown Urea nitrogen [Mass/volume] in Serum or Plasma --post dialysis 2025-01-12 20:16:21 29 mg/dL F 9.0-23.0 Urea nitrogen [Mass/volume] in Serum or Plasma --post dialysis 2025-01-12 20:16:21 29 mg/dL F 9.0-23.0 Urea nitrogen [Mass/volume] in Serum or Plasma 2025-01-12 20:02:13 88 mg/dL F 9.0-23.0 Urea nitrogen [Mass/volume] in Serum or Plasma 2025-01-12 20:02:13 88 mg/dL F 9.0-23.0 Creatinine [Mass/volume] in Serum or Plasma 2024-12-29 16:50:14 7.18 mg/dL F 0.7-1.3 URR% 2024-11-03 20:39:41 69 % F PRESCRIBED DAYS/WEEK 2024-11-03 20:39:41 3 Day/Wk F KT/V PRESCRIBED 2024-11-03 20:39:41 1.6 F Total Kt/V 2024-11-03 20:39:41 1.35 F LENGTH OF DIALYSIS 2024-11-03 20:39:41 210 min F DIALYZER FLOW-QD 2024-11-03 20:39:41 500 mL/min F PATIENT AGE 2024-11-03 20:39:41 74 Years F VT (KT/V TX VOL) 2024-11-03 20:39:41 39.5 L F stdKt/V (DIAL) 2024-11-03 20:39:41 N/A F BLOOD FLOW-QWB 2024-11-03 20:39:41 349 F nPCR 2024-11-03 20:39:41 1.45 G/KG/D F Residual kt/v 2024-11-03 20:39:41 F spKt/V 2024-11-03 20:39:41 1.35 F WEIGHT - PRE DAY 1 2024-11-03 20:39:41 81.1 kg F WEIGHT (KG) 2024-11-03 20:39:41 76 kg F TBW (Nascimento) 2024-11-03 20:39:41 40.6 Liters F Dialyzer YULI 2024-11-03 20:39:41 1264 Calc F CURRENT KRU 2024-11-03 20:39:41 F Std Renal KT/V 2024-11-03 20:39:41 N/A F eKt/V 2024-11-03 20:39:41 1.15 F TOTAL HOURS/WEEK DIALYSIS 2024-11-03 20:39:41 10 hrs F WEIGHT - POST DAY 1 2024-11-03 20:39:41 79 kg F AMPUTATE FACTOR 2024-11-03 20:39:41 0 F stdKT/V Total 2024-11-03 20:39:41 N/A F HEIGHT IN INCHES 2024-11-03 20:39:41 69 Inches F VM (KT/V MEAN VOL) 2024-11-03 20:39:41 43.7 F BSA MARIELLE 2024-11-03 20:39:41 1.92 sq m F Creatinine [Mass/volume] in Serum or Plasma 2024-11-03 20:37:21 6.72 mg/dL F 0.7-1.3 Urea nitrogen [Mass/volume] in Serum or Plasma 2024-11-03 20:37:21 104 mg/dL F 9.0-23.0 Urea nitrogen [Mass/volume] in Serum or Plasma --post dialysis 2024-11-03 20:03:22 32 mg/dL F 9.0-23.0 WEIGHT - PRE DAY 1 2024-10-13 13:34:27 77.8 kg F eKt/V 2024-10-13 13:34:27 1.08 F Total Kt/V 2024-10-13 13:34:27 1.27 F HEIGHT IN INCHES 2024-10-13 13:34:27 69 Inches F BLOOD FLOW-QWB 2024-10-13 13:34:27 333 F DIALYZER FLOW-QD 2024-10-13 13:34:27 500 mL/min F stdKT/V Total 2024-10-13 13:34:27 N/A F URR% 2024-10-13 13:34:27 68 % F nPCR 2024-10-13 13:34:27 1.71 G/KG/D F LENGTH OF DIALYSIS 2024-10-13 13:34:27 208 min F VT (KT/V TX VOL) 2024-10-13 13:34:27 40.7 L F CURRENT KRU 2024-10-13 13:34:27 F PATIENT AGE 2024-10-13 13:34:27 74 Years F WEIGHT - POST DAY 1 2024-10-13 13:34:27 76.3 kg F KT/V PRESCRIBED 2024-10-13 13:34:27 1.58 F Std Renal KT/V 2024-10-13 13:34:27 N/A F AMPUTATE FACTOR 2024-10-13 13:34:27 0 F stdKt/V (DIAL) 2024-10-13 13:34:27 N/A F Residual kt/v 2024-10-13 13:34:27 F TOTAL HOURS/WEEK DIALYSIS 2024-10-13 13:34:27 10 hrs F BSA MARIELLE 2024-10-13 13:34:27 1.92 sq m F spKt/V 2024-10-13 13:34:27 1.27 F TBW (Nascimento) 2024-10-13 13:34:27 39.69 Liters F PRESCRIBED DAYS/WEEK 2024-10-13 13:34:27 3 Day/Wk F VM (KT/V MEAN VOL) 2024-10-13 13:34:27 45.1 F WEIGHT (KG) 2024-10-13 13:34:27 76 kg F Dialyzer YULI 2024-10-13 13:34:27 1264 Calc F URR% 2024-10-13 13:34:27 68 % F BSA MARIELLE 2024-10-13 13:34:27 1.92 sq m F VT (KT/V TX VOL) 2024-10-13 13:34:27 40.7 L F VM (KT/V MEAN VOL) 2024-10-13 13:34:27 45.1 F Total Kt/V 2024-10-13 13:34:27 1.27 F PRESCRIBED DAYS/WEEK 2024-10-13 13:34:27 3 Day/Wk F spKt/V 2024-10-13 13:34:27 1.27 F eKt/V 2024-10-13 13:34:27 1.08 F stdKT/V Total 2024-10-13 13:34:27 N/A F TOTAL HOURS/WEEK DIALYSIS 2024-10-13 13:34:27 10 hrs F CURRENT KRU 2024-10-13 13:34:27 F DIALYZER FLOW-QD 2024-10-13 13:34:27 500 mL/min F Dialyzer YULI 2024-10-13 13:34:27 1264 Calc F WEIGHT (KG) 2024-10-13 13:34:27 76 kg F Residual kt/v 2024-10-13 13:34:27 F stdKt/V (DIAL) 2024-10-13 13:34:27 N/A F LENGTH OF DIALYSIS 2024-10-13 13:34:27 208 min F Std Renal KT/V 2024-10-13 13:34:27 N/A F BLOOD FLOW-QWB 2024-10-13 13:34:27 333 F WEIGHT - POST DAY 1 2024-10-13 13:34:27 76.3 kg F PATIENT AGE 2024-10-13 13:34:27 74 Years F WEIGHT - PRE DAY 1 2024-10-13 13:34:27 77.8 kg F HEIGHT IN INCHES 2024-10-13 13:34:27 69 Inches F KT/V PRESCRIBED 2024-10-13 13:34:27 1.58 F nPCR 2024-10-13 13:34:27 1.71 G/KG/D F TBW (Nascimento) 2024-10-13 13:34:27 39.69 Liters F AMPUTATE FACTOR 2024-10-13 13:34:27 0 F Urea nitrogen [Mass/volume] in Serum or Plasma --post dialysis 2024-10-13 13:32:20 42 mg/dL F 9.0-23.0 Urea nitrogen [Mass/volume] in Serum or Plasma --post dialysis 2024-10-13 13:32:20 42 mg/dL F 9.0-23.0 Urea nitrogen [Mass/volume] in Serum or Plasma 2024-10-13 13:11:10 130 mg/dL F 9.0-23.0 Urea nitrogen [Mass/volume] in Serum or Plasma 2024-10-13 13:11:10 130 mg/dL F 9.0-23.0 PRESCRIBED DAYS/WEEK 2024-10-06 18:06:50 3 Day/Wk F PATIENT AGE 2024-10-06 18:06:50 74 Years F DIALYZER FLOW-QD 2024-10-06 18:06:50 500 mL/min F Dialyzer YULI 2024-10-06 18:06:50 1264 Calc F VT (KT/V TX VOL) 2024-10-06 18:06:50 46.6 L F LENGTH OF DIALYSIS 2024-10-06 18:06:50 210 min F Total Kt/V 2024-10-06 18:06:50 1.14 F BLOOD FLOW-QWB 2024-10-06 18:06:50 349 F WEIGHT - PRE DAY 1 2024-10-06 18:06:50 78.4 kg F Std Renal KT/V 2024-10-06 18:06:50 N/A F URR% 2024-10-06 18:06:50 63 % F AMPUTATE FACTOR 2024-10-06 18:06:50 0 F Residual kt/v 2024-10-06 18:06:50 F WEIGHT (KG) 2024-10-06 18:06:50 76 kg F spKt/V 2024-10-06 18:06:50 1.14 F TBW (Nascimento) 2024-10-06 18:06:50 39.72 Liters F eKt/V 2024-10-06 18:06:50 0.98 F stdKt/V (DIAL) 2024-10-06 18:06:50 N/A F CURRENT KRU 2024-10-06 18:06:50 F stdKT/V Total 2024-10-06 18:06:50 N/A F BSA MARIELLE 2024-10-06 18:06:50 1.92 sq m F HEIGHT IN INCHES 2024-10-06 18:06:50 69 Inches F WEIGHT - POST DAY 1 2024-10-06 18:06:50 76.4 kg F TOTAL HOURS/WEEK DIALYSIS 2024-10-06 18:06:50 10 hrs F KT/V PRESCRIBED 2024-10-06 18:06:50 1.6 F VM (KT/V MEAN VOL) 2024-10-06 18:06:50 46.6 F nPCR 2024-10-06 18:06:50 1.61 G/KG/D F TBW (Nascimento) 2024-10-06 18:06:50 39.72 Liters F URR% 2024-10-06 18:06:50 63 % F VM (KT/V MEAN VOL) 2024-10-06 18:06:50 46.6 F PATIENT AGE 2024-10-06 18:06:50 74 Years F VT (KT/V TX VOL) 2024-10-06 18:06:50 46.6 L F WEIGHT - PRE DAY 1 2024-10-06 18:06:50 78.4 kg F PRESCRIBED DAYS/WEEK 2024-10-06 18:06:50 3 Day/Wk F stdKT/V Total 2024-10-06 18:06:50 N/A F BSA MARIELLE 2024-10-06 18:06:50 1.92 sq m F LENGTH OF DIALYSIS 2024-10-06 18:06:50 210 min F CURRENT KRU 2024-10-06 18:06:50 F Std Renal KT/V 2024-10-06 18:06:50 N/A F HEIGHT IN INCHES 2024-10-06 18:06:50 69 Inches F eKt/V 2024-10-06 18:06:50 0.98 F spKt/V 2024-10-06 18:06:50 1.14 F WEIGHT - POST DAY 1 2024-10-06 18:06:50 76.4 kg F DIALYZER FLOW-QD 2024-10-06 18:06:50 500 mL/min F AMPUTATE FACTOR 2024-10-06 18:06:50 0 F KT/V PRESCRIBED 2024-10-06 18:06:50 1.6 F BLOOD FLOW-QWB 2024-10-06 18:06:50 349 F TOTAL HOURS/WEEK DIALYSIS 2024-10-06 18:06:50 10 hrs F Dialyzer YULI 2024-10-06 18:06:50 1264 Calc F stdKt/V (DIAL) 2024-10-06 18:06:50 N/A F Residual kt/v 2024-10-06 18:06:50 F nPCR 2024-10-06 18:06:50 1.61 G/KG/D F WEIGHT (KG) 2024-10-06 18:06:50 76 kg F Total Kt/V 2024-10-06 18:06:50 1.14 F WEIGHT - POST DAY 1 2024-10-06 18:06:50 76.4 kg F BSA MARIELLE 2024-10-06 18:06:50 1.92 sq m F Residual kt/v 2024-10-06 18:06:50 F Total Kt/V 2024-10-06 18:06:50 1.14 F TBW (Nascimento) 2024-10-06 18:06:50 39.72 Liters F nPCR 2024-10-06 18:06:50 1.61 G/KG/D F Std Renal KT/V 2024-10-06 18:06:50 N/A F CURRENT KRU 2024-10-06 18:06:50 F DIALYZER FLOW-QD 2024-10-06 18:06:50 500 mL/min F PATIENT AGE 2024-10-06 18:06:50 74 Years F LENGTH OF DIALYSIS 2024-10-06 18:06:50 210 min F WEIGHT (KG) 2024-10-06 18:06:50 76 kg F WEIGHT - PRE DAY 1 2024-10-06 18:06:50 78.4 kg F PRESCRIBED DAYS/WEEK 2024-10-06 18:06:50 3 Day/Wk F KT/V PRESCRIBED 2024-10-06 18:06:50 1.6 F VT (KT/V TX VOL) 2024-10-06 18:06:50 46.6 L F spKt/V 2024-10-06 18:06:50 1.14 F stdKT/V Total 2024-10-06 18:06:50 N/A F URR% 2024-10-06 18:06:50 63 % F Dialyzer YULI 2024-10-06 18:06:50 1264 Calc F HEIGHT IN INCHES 2024-10-06 18:06:50 69 Inches F AMPUTATE FACTOR 2024-10-06 18:06:50 0 F VM (KT/V MEAN VOL) 2024-10-06 18:06:50 46.6 F eKt/V 2024-10-06 18:06:50 0.98 F stdKt/V (DIAL) 2024-10-06 18:06:50 N/A F TOTAL HOURS/WEEK DIALYSIS 2024-10-06 18:06:50 10 hrs F BLOOD FLOW-QWB 2024-10-06 18:06:50 349 F Creatinine [Mass/volume] in Serum or Plasma 2024-10-06 17:40:27 5.61 mg/dL F 0.7-1.3 Urea nitrogen [Mass/volume] in Serum or Plasma 2024-10-06 17:40:27 126 mg/dL F 9.0-23.0 Creatinine [Mass/volume] in Serum or Plasma 2024-10-06 17:40:27 5.61 mg/dL F 0.7-1.3 Urea nitrogen [Mass/volume] in Serum or Plasma 2024-10-06 17:40:27 126 mg/dL F 9.0-23.0 Urea nitrogen [Mass/volume] in Serum or Plasma 2024-10-06 17:40:27 126 mg/dL F 9.0-23.0 Creatinine [Mass/volume] in Serum or Plasma 2024-10-06 17:40:27 5.61 mg/dL F 0.7-1.3 Urea nitrogen [Mass/volume] in Serum or Plasma --post dialysis 2024-10-06 15:00:32 46 mg/dL F 9.0-23.0 Urea nitrogen [Mass/volume] in Serum or Plasma --post dialysis 2024-10-06 15:00:32 46 mg/dL F 9.0-23.0 Urea nitrogen [Mass/volume] in Serum or Plasma --post dialysis 2024-10-06 15:00:32 46 mg/dL F 9.0-23.0 Residual kt/v 2024-09-06 12:18:57 N/A F HEIGHT IN INCHES 2024-09-06 12:18:57 69 Inches F LENGTH OF DIALYSIS 2024-09-06 12:18:57 164 min F PATIENT AGE 2024-09-06 12:18:57 74 Years F DIALYZER FLOW-QD 2024-09-06 12:18:57 158 mL/min F CURRENT KRU 2024-09-06 12:18:57 F WEIGHT - PRE DAY 1 2024-09-06 12:18:57 73 kg F VT (KT/V TX VOL) 2024-09-06 12:18:57 N/A F PRESCRIBED DAYS/WEEK 2024-09-06 12:18:57 4 Day/Wk F Dialyzer YULI 2024-09-06 12:18:57 1174 Calc F Std Renal KT/V 2024-09-06 12:18:57 F WEIGHT - POST DAY 1 2024-09-06 12:18:57 71.5 kg F nPCR 2024-09-06 12:18:57 N/A F spKt/V 2024-09-06 12:18:57 0.52 F Total Kt/V 2024-09-06 12:18:57 N/A F TOTAL HOURS/WEEK DIALYSIS 2024-09-06 12:18:57 2 hrs F stdKT/V Total 2024-09-06 12:18:57 1.51 F AMPUTATE FACTOR 2024-09-06 12:18:57 0 F eKt/V 2024-09-06 12:18:57 0.46 F TBW (Nascimento) 2024-09-06 12:18:57 38.08 Liters F VM (KT/V MEAN VOL) 2024-09-06 12:18:57 N/A F KT/V PRESCRIBED 2024-09-06 12:18:57 F BSA MARIELLE 2024-09-06 12:18:57 1.88 sq m F BLOOD FLOW-QWB 2024-09-06 12:18:57 250 F WEIGHT (KG) 2024-09-06 12:18:57 73 kg F stdKt/V (DIAL) 2024-09-06 12:18:57 1.51 F URR% 2024-09-06 12:18:56 36 % F [...] Date Result/Unit Status Ref Range Result Comments HCT CALC HGBX3 2025-03-23 13:29:41 20.4 % F 42.0-52.0 Reticulocytes/100 erythrocytes in Blood by Automated count 2025-03-23 13:25:10 5.54 % F 0.7-2.5 Hemoglobin [Mass/volume] in Blood 2025-03-23 13:25:10 6.8 g/dL F 14.0-18.0 ABSOLUTE RETIC COUNT 2025-03-23 13:25:10 0.124 x 10^6 cells/uL F 0.035-0.127 IRON SATURATION 2025-03-17 06:33:07 17 % F 21.0-49.0 TIBC 2025-03-17 06:33:07 232 ug/dL F 250.0-425.0 IRON SATURATION 2025-03-17 06:33:07 17 % F 21.0-49.0 TIBC 2025-03-17 06:33:07 232 ug/dL F 250.0-425.0 Iron [Mass/volume] in Serum or Plasma 2025-03-17 06:28:50 40 ug/dL F 65.0-175.0 Iron binding capacity.unsaturated [Mass/volume] in Serum or Plasma 2025-03-17 06:28:50 192 ug/dL F 75.0-360.0 Iron [Mass/volume] in Serum or Plasma 2025-03-17 06:28:50 40 ug/dL F 65.0-175.0 Iron binding capacity.unsaturated [Mass/volume] in Serum or Plasma 2025-03-17 06:28:50 192 ug/dL F 75.0-360.0 Ferritin [Mass/volume] in Serum or Plasma 2025-03-17 01:25:16 156 ng/mL F 11.0-307.0 Ferritin [Mass/volume] in Serum or Plasma 2025-03-17 01:25:16 156 ng/mL F 11.0-307.0 HCT CALC HGBX3 2025-03-17 01:22:08 20.7 % F 42.0-52.0 HCT CALC HGBX3 2025-03-17 01:22:08 20.7 % F 42.0-52.0 Hemoglobin [Mass/volume] in Blood 2025-03-17 01:21:17 6.9 g/dL F 14.0-18.0 Hemoglobin [Mass/volume] in Blood 2025-03-17 01:21:17 6.9 g/dL F 14.0-18.0 HCT CALC HGBX3 2025-03-10 02:09:10 22.8 % F 42.0-52.0 Hemoglobin [Mass/volume] in Blood 2025-03-10 02:08:17 7.6 g/dL F 14.0-18.0 HCT CALC HGBX3 2025-03-02 15:09:03 21.9 % F 42.0-52.0 Hemoglobin [Mass/volume] in Blood 2025-03-02 15:08:04 7.3 g/dL F 14.0-18.0 IRON SATURATION 2025-02-24 05:54:59 18 % F 21.0-49.0 TIBC 2025-02-24 05:54:59 231 ug/dL F 250.0-425.0 IRON SATURATION 2025-02-24 05:54:59 18 % F 21.0-49.0 TIBC 2025-02-24 05:54:59 231 ug/dL F 250.0-425.0 Iron [Mass/volume] in Serum or Plasma 2025-02-24 05:49:40 42 ug/dL F 65.0-175.0 Iron [Mass/volume] in Serum or Plasma 2025-02-24 05:49:40 42 ug/dL F 65.0-175.0 Iron binding capacity.unsaturated [Mass/volume] in Serum or Plasma 2025-02-24 05:49:39 189 ug/dL F 75.0-360.0 Iron binding capacity.unsaturated [Mass/volume] in Serum or Plasma 2025-02-24 05:49:39 189 ug/dL F 75.0-360.0 HCT CALC HGBX3 2025-02-23 16:14:55 20.7 % F 42.0-52.0 HCT CALC HGBX3 2025-02-23 16:14:55 20.7 % F 42.0-52.0 Erythrocyte distribution width [Ratio] by Automated count 2025-02-23 16:14:07 16.6 % F 11.0-15.0 Erythrocytes [#/volume] in Blood by Automated count 2025-02-23 16:14:07 2.21 x 10^6 cells/uL F 4.6-6.2 Hemoglobin [Mass/volume] in Blood 2025-02-23 16:14:07 6.9 g/dL F 14.0-18.0 Hematocrit [Volume Fraction] of Blood by Automated count 2025-02-23 16:14:07 22.6 % F 41.0-53.0 MCV [Entitic volume] by Automated count 2025-02-23 16:14:07 102.3 fL F 80.0-100.0 MCH [Entitic mass] by Automated count 2025-02-23 16:14:07 31 pg F 25.9-34.2 MCHC [Mass/volume] by Automated count 2025-02-23 16:14:07 30.3 g/dL F 29.6-35.3 Platelets [#/volume] in Blood by Automated count 2025-02-23 16:14:07 280 x 10^3 cells/uL F 140.0-450.0 ABSOLUTE RETIC COUNT 2025-02-23 16:14:07 0.093 x 10^6 cells/uL F 0.035-0.127 Reticulocytes/100 erythrocytes in Blood by Automated count 2025-02-23 16:14:07 4.21 % F 0.7-2.5 Erythrocyte distribution width [Ratio] by Automated count 2025-02-23 16:14:07 16.6 % F 11.0-15.0 Hematocrit [Volume Fraction] of Blood by Automated count 2025-02-23 16:14:07 22.6 % F 41.0-53.0 Erythrocytes [#/volume] in Blood by Automated count 2025-02-23 16:14:07 2.21 x 10^6 cells/uL F 4.6-6.2 MCH [Entitic mass] by Automated count 2025-02-23 16:14:07 31 pg F 25.9-34.2 MCV [Entitic volume] by Automated count 2025-02-23 16:14:07 102.3 fL F 80.0-100.0 Hemoglobin [Mass/volume] in Blood 2025-02-23 16:14:07 6.9 g/dL F 14.0-18.0 MCHC [Mass/volume] by Automated count 2025-02-23 16:14:07 30.3 g/dL F 29.6-35.3 Platelets [#/volume] in Blood by Automated count 2025-02-23 16:14:07 280 x 10^3 cells/uL F 140.0-450.0 ABSOLUTE RETIC COUNT 2025-02-23 16:14:07 0.093 x 10^6 cells/uL F 0.035-0.127 Reticulocytes/100 erythrocytes in Blood by Automated count 2025-02-23 16:14:07 4.21 % F 0.7-2.5 Ferritin [Mass/volume] in Serum or Plasma 2025-02-23 15:06:21 176 ng/mL F 11.0-307.0 Ferritin [Mass/volume] in Serum or Plasma 2025-02-23 15:06:21 176 ng/mL F 11.0-307.0 IRON SATURATION 2025-02-17 06:12:27 19 % F 21.0-49.0 TIBC 2025-02-17 06:12:27 232 ug/dL F 250.0-425.0 IRON SATURATION 2025-02-17 06:12:27 19 % F 21.0-49.0 TIBC 2025-02-17 06:12:27 232 ug/dL F 250.0-425.0 Iron [Mass/volume] in Serum or Plasma 2025-02-17 06:00:45 44 ug/dL F 65.0-175.0 Iron binding capacity.unsaturated [Mass/volume] in Serum or Plasma 2025-02-17 06:00:45 188 ug/dL F 75.0-360.0 Iron [Mass/volume] in Serum or Plasma 2025-02-17 06:00:45 44 ug/dL F 65.0-175.0 Iron binding capacity.unsaturated [Mass/volume] in Serum or Plasma 2025-02-17 06:00:45 188 ug/dL F 75.0-360.0 Ferritin [Mass/volume] in Serum or Plasma 2025-02-16 15:44:24 170 ng/mL F 11.0-307.0 Ferritin [Mass/volume] in Serum or Plasma 2025-02-16 15:44:24 170 ng/mL F 11.0-307.0 HCT CALC HGBX3 2025-02-10 12:18:54 18 % F 42.0-52.0 Hemoglobin [Mass/volume] in Blood 2025-02-10 12:18:14 6 g/dL F 14.0-18.0 HCT CALC HGBX3 2025-01-27 05:19:08 20.1 % F 42.0-52.0 HCT CALC HGBX3 2025-01-27 05:19:08 20.1 % F 42.0-52.0 Erythrocyte distribution width [Ratio] by Automated count 2025-01-27 05:18:11 16.1 % F 11.0-15.0 Hematocrit [Volume Fraction] of Blood by Automated count 2025-01-27 05:18:11 22.8 % F 41.0-53.0 Erythrocytes [#/volume] in Blood by Automated count 2025-01-27 05:18:11 2.28 x 10^6 cells/uL F 4.6-6.2 Hemoglobin [Mass/volume] in Blood 2025-01-27 05:18:11 6.7 g/dL F 14.0-18.0 MCV [Entitic volume] by Automated count 2025-01-27 05:18:11 100 fL F 80.0-100.0 MCH [Entitic mass] by Automated count 2025-01-27 05:18:11 29.3 pg F 25.9-34.2 Platelets [#/volume] in Blood by Automated count 2025-01-27 05:18:11 288 x 10^3 cells/uL F 140.0-450.0 MCHC [Mass/volume] by Automated count 2025-01-27 05:18:11 29.3 g/dL F 29.6-35.3 ABSOLUTE RETIC COUNT 2025-01-27 05:18:11 0.062 x 10^6 cells/uL F 0.035-0.127 Reticulocytes/100 erythrocytes in Blood by Automated count 2025-01-27 05:18:11 2.71 % F 0.7-2.5 Erythrocyte distribution width [Ratio] by Automated count 2025-01-27 05:18:11 16.1 % F 11.0-15.0 Erythrocytes [#/volume] in Blood by Automated count 2025-01-27 05:18:11 2.28 x 10^6 cells/uL F 4.6-6.2 Hematocrit [Volume Fraction] of Blood by Automated count 2025-01-27 05:18:11 22.8 % F 41.0-53.0 MCV [Entitic volume] by Automated count 2025-01-27 05:18:11 100 fL F 80.0-100.0 Hemoglobin [Mass/volume] in Blood 2025-01-27 05:18:11 6.7 g/dL F 14.0-18.0 MCHC [Mass/volume] by Automated count 2025-01-27 05:18:11 29.3 g/dL F 29.6-35.3 MCH [Entitic mass] by Automated count 2025-01-27 05:18:11 29.3 pg F 25.9-34.2 Platelets [#/volume] in Blood by Automated count 2025-01-27 05:18:11 288 x 10^3 cells/uL F 140.0-450.0 Reticulocytes/100 erythrocytes in Blood by Automated count 2025-01-27 05:18:11 2.71 % F 0.7-2.5 ABSOLUTE RETIC COUNT 2025-01-27 05:18:11 0.062 x 10^6 cells/uL F 0.035-0.127 IRON SATURATION 2025-01-26 20:44:04 14 % F 21.0-49.0 TIBC 2025-01-26 20:44:04 244 ug/dL F 250.0-425.0 IRON SATURATION 2025-01-26 20:44:04 14 % F 21.0-49.0 TIBC 2025-01-26 20:44:04 244 ug/dL F 250.0-425.0 Iron [Mass/volume] in Serum or Plasma 2025-01-26 20:41:04 34 ug/dL F 65.0-175.0 Iron binding capacity.unsaturated [Mass/volume] in Serum or Plasma 2025-01-26 20:41:04 210 ug/dL F 75.0-360.0 Iron [Mass/volume] in Serum or Plasma 2025-01-26 20:41:04 34 ug/dL F 65.0-175.0 Iron binding capacity.unsaturated [Mass/volume] in Serum or Plasma 2025-01-26 20:41:04 210 ug/dL F 75.0-360.0 Ferritin [Mass/volume] in Serum or Plasma 2025-01-26 14:25:29 149 ng/mL F 11.0-307.0 Ferritin [Mass/volume] in Serum or Plasma 2025-01-26 14:25:29 149 ng/mL F 11.0-307.0 IRON SATURATION 2025-01-20 05:13:57 29 % F 21.0-49.0 TIBC 2025-01-20 05:13:57 223 ug/dL F 250.0-425.0 IRON SATURATION 2025-01-20 05:13:57 29 % F 21.0-49.0 TIBC 2025-01-20 05:13:57 223 ug/dL F 250.0-425.0 Iron [Mass/volume] in Serum or Plasma 2025-01-20 04:58:11 64 ug/dL F 65.0-175.0 Iron [Mass/volume] in Serum or Plasma 2025-01-20 04:58:11 64 ug/dL F 65.0-175.0 Iron binding capacity.unsaturated [Mass/volume] in Serum or Plasma 2025-01-20 04:58:04 159 ug/dL F 75.0-360.0 Iron binding capacity.unsaturated [Mass/volume] in Serum or Plasma 2025-01-20 04:58:04 159 ug/dL F 75.0-360.0 HCT CALC HGBX3 2025-01-19 21:41:55 19.8 % F 42.0-52.0 HCT CALC HGBX3 2025-01-19 21:41:55 19.8 % F 42.0-52.0 Hemoglobin [Mass/volume] in Blood 2025-01-19 21:41:08 6.6 g/dL F 14.0-18.0 Hemoglobin [Mass/volume] in Blood 2025-01-19 21:41:08 6.6 g/dL F 14.0-18.0 Ferritin [Mass/volume] in Serum or Plasma 2025-01-19 19:50:21 167 ng/mL F 22.0-322.0 Ferritin [Mass/volume] in Serum or Plasma 2025-01-19 19:50:21 167 ng/mL F 22.0-322.0 HCT CALC HGBX3 2025-01-13 00:45:53 19.5 % F 42.0-52.0 HCT CALC HGBX3 2025-01-13 00:45:53 19.5 % F 42.0-52.0 Hemoglobin [Mass/volume] in Blood 2025-01-13 00:45:14 6.5 g/dL F 14.0-18.0 Hemoglobin [Mass/volume] in Blood 2025-01-13 00:45:14 6.5 g/dL F 14.0-18.0 IRON SATURATION 2024-12-30 02:01:42 16 % F 21.0-49.0 TIBC 2024-12-30 02:01:42 224 ug/dL F 250.0-425.0 Iron [Mass/volume] in Serum or Plasma 2024-12-30 01:59:09 35 ug/dL F 65.0-175.0 Iron binding capacity.unsaturated [Mass/volume] in Serum or Plasma 2024-12-30 01:59:09 189 ug/dL F 75.0-360.0 HCT CALC HGBX3 2024-12-29 20:22:55 18.9 % F 42.0-52.0 Erythrocyte distribution width [Ratio] by Automated count 2024-12-29 20:22:09 17.1 % F 11.0-15.0 Erythrocytes [#/volume] in Blood by Automated count 2024-12-29 20:22:09 2.04 x 10^6 cells/uL F 4.6-6.2 Hematocrit [Volume Fraction] of Blood by Automated count 2024-12-29 20:22:09 20.3 % F 41.0-53.0 Hemoglobin [Mass/volume] in Blood 2024-12-29 20:22:09 6.3 g/dL F 14.0-18.0 MCV [Entitic volume] by Automated count 2024-12-29 20:22:09 99.2 fL F 80.0-100.0 MCH [Entitic mass] by Automated count 2024-12-29 20:22:09 31 pg F 25.9-34.2 MCHC [Mass/volume] by Automated count 2024-12-29 20:22:09 31.3 g/dL F 29.6-35.3 Platelets [#/volume] in Blood by Automated count 2024-12-29 20:22:09 272 x 10^3 cells/uL F 140.0-450.0 ABSOLUTE RETIC COUNT 2024-12-29 20:22:09 0.067 x 10^6 cells/uL F 0.035-0.127 Reticulocytes/100 erythrocytes in Blood by Automated count 2024-12-29 20:22:09 3.3 % F 0.7-2.5 Ferritin [Mass/volume] in Serum or Plasma 2024-12-29 17:54:14 247 ng/mL F 22.0-322.0 HCT CALC HGBX3 2024-11-03 19:46:05 21.6 % F 42.0-52.0 MCHC [Mass/volume] by Automated count 2024-11-03 19:45:09 30.9 g/dL F 29.6-35.3 Hemoglobin [Mass/volume] in Blood 2024-11-03 19:45:09 7.2 g/dL F 14.0-18.0 Reticulocytes/100 erythrocytes in Blood by Automated count 2024-11-03 19:45:09 5.93 % F 0.7-2.5 MCH [Entitic mass] by Automated count 2024-11-03 19:45:09 32.2 pg F 25.9-34.2 Platelets [#/volume] in Blood by Automated count 2024-11-03 19:45:09 271 x 10^3 cells/uL F 140.0-450.0 Erythrocytes [#/volume] in Blood by Automated count 2024-11-03 19:45:09 2.25 x 10^6 cells/uL F 4.6-6.2 Hematocrit [Volume Fraction] of Blood by Automated count 2024-11-03 19:45:09 23.4 % F 41.0-53.0 Erythrocyte distribution width [Ratio] by Automated count 2024-11-03 19:45:09 17.8 % F 11.0-15.0 ABSOLUTE RETIC COUNT 2024-11-03 19:45:09 0.133 x 10^6 cells/uL F 0.035-0.127 MCV [Entitic volume] by Automated count 2024-11-03 19:45:09 104.2 fL F 80.0-100.0 TIBC 2024-10-28 18:48:58 203 ug/dL F 250.0-425.0 IRON SATURATION 2024-10-28 18:48:58 22 % F 20.0-55.0 Iron binding capacity.unsaturated [Mass/volume] in Serum or Plasma 2024-10-28 18:44:51 158 ug/dL F 75.0-360.0 Iron [Mass/volume] in Serum or Plasma 2024-10-28 18:44:51 45 ug/dL F 65.0-175.0 HCT CALC HGBX3 2024-10-23 01:40:44 23.4 % F 42.0-52.0 Hemoglobin [Mass/volume] in Blood 2024-10-23 01:40:06 7.8 g/dL F 14.0-18.0 Ferritin [Mass/volume] in Serum or Plasma 2024-10-22 19:34:10 354 ng/mL F 22.0-322.0 Reticulocytes/100 erythrocytes in Blood by Automated count 2024-10-13 13:47:15 3.72 % F 0.7-2.5 ABSOLUTE RETIC COUNT 2024-10-13 13:47:15 0.068 x 10^6 cells/uL F 0.035-0.127 HCT CALC HGBX3 2024-10-13 13:37:00 18 % F 42.0-52.0 Hemoglobin [Mass/volume] in Blood 2024-10-13 13:36:11 6 g/dL F 14.0-18.0 IRON SATURATION 2024-10-07 10:09:32 26 % F 21.0-49.0 TIBC 2024-10-07 10:09:32 211 ug/dL F 250.0-425.0 TIBC 2024-10-07 10:09:32 211 ug/dL F 250.0-425.0 IRON SATURATION 2024-10-07 10:09:32 26 % F 21.0-49.0 Iron [Mass/volume] in Serum or Plasma 2024-10-07 07:07:58 54 ug/dL F 65.0-175.0 Iron binding capacity.unsaturated [Mass/volume] in Serum or Plasma 2024-10-07 07:07:58 157 ug/dL F 75.0-360.0 Iron [Mass/volume] in Serum or Plasma 2024-10-07 07:07:58 54 ug/dL F 65.0-175.0 Iron binding capacity.unsaturated [Mass/volume] in Serum or Plasma 2024-10-07 07:07:58 157 ug/dL F 75.0-360.0 Ferritin [Mass/volume] in Serum or Plasma 2024-10-06 16:39:25 F Ferritin [Mass/volume] in Serum or Plasma 2024-10-06 16:39:25 F CANCELED - TEST CANCELED Ferritin [Mass/volume] in Serum or Plasma 2024-10-06 16:39:25 F CANCELED - TEST CANCELED HCT CALC HGBX3 2024-10-06 14:21:27 18.3 % F 42.0-52.0 HCT CALC HGBX3 2024-10-06 14:21:27 18.3 % F 42.0-52.0 HCT CALC HGBX3 2024-10-06 14:21:27 18.3 % F 42.0-52.0 Erythrocyte distribution width [Ratio] by Automated count 2024-10-06 14:20:06 19.7 % F 11.0-15.0 Erythrocytes [#/volume] in Blood by Automated count 2024-10-06 14:20:06 1.95 x 10^6 cells/uL F 4.6-6.2 Hematocrit [Volume Fraction] of Blood by Automated count 2024-10-06 14:20:06 20.1 % F 41.0-53.0 Hemoglobin [Mass/volume] in Blood 2024-10-06 14:20:06 6.1 g/dL F 14.0-18.0 MCH [Entitic mass] by Automated count 2024-10-06 14:20:06 31.5 pg F 25.9-34.2 MCV [Entitic volume] by Automated count 2024-10-06 14:20:06 103.1 fL F 80.0-100.0 MCHC [Mass/volume] by Automated count 2024-10-06 14:20:06 30.5 g/dL F 29.6-35.3 Platelets [#/volume] in Blood by Automated count 2024-10-06 14:20:06 274 x 10^3 cells/uL F 140.0-450.0 Erythrocyte distribution width [Ratio] by Automated count 2024-10-06 14:20:06 19.7 % F 11.0-15.0 Platelets [#/volume] in Blood by Automated count 2024-10-06 14:20:06 274 x 10^3 cells/uL F 140.0-450.0 Hemoglobin [Mass/volume] in Blood 2024-10-06 14:20:06 6.1 g/dL F 14.0-18.0 MCH [Entitic mass] by Automated count 2024-10-06 14:20:06 31.5 pg F 25.9-34.2 MCHC [Mass/volume] by Automated count 2024-10-06 14:20:06 30.5 g/dL F 29.6-35.3 Erythrocytes [#/volume] in Blood by Automated count 2024-10-06 14:20:06 1.95 x 10^6 cells/uL F 4.6-6.2 Hematocrit [Volume Fraction] of Blood by Automated count 2024-10-06 14:20:06 20.1 % F 41.0-53.0 MCV [Entitic volume] by Automated count 2024-10-06 14:20:06 103.1 fL F 80.0-100.0 Hemoglobin [Mass/volume] in Blood 2024-10-06 14:20:06 6.1 g/dL F 14.0-18.0 MCH [Entitic mass] by Automated count 2024-10-06 14:20:06 31.5 pg F 25.9-34.2 Platelets [#/volume] in Blood by Automated count 2024-10-06 14:20:06 274 x 10^3 cells/uL F 140.0-450.0 Erythrocyte distribution width [Ratio] by Automated count 2024-10-06 14:20:06 19.7 % F 11.0-15.0 Hematocrit [Volume Fraction] of Blood by Automated count 2024-10-06 14:20:06 20.1 % F 41.0-53.0 Erythrocytes [#/volume] in Blood by Automated count 2024-10-06 14:20:06 1.95 x 10^6 cells/uL F 4.6-6.2 MCHC [Mass/volume] by Automated count 2024-10-06 14:20:06 30.5 g/dL F 29.6-35.3 MCV [Entitic volume] by Automated count 2024-10-06 14:20:06 103.1 fL F 80.0-100.0 Hematocrit [Volume Fraction] of Blood by Automated count 2024-09-14 18:35:00 24.4 % F 42-52 Hemoglobin [Mass/volume] in Blood 2024-09-14 18:35:00 7.7 g/dL F 14-18 IRON SATURATION 2024-09-05 04:33:40 7 % F 21.0-49.0 TIBC 2024-09-05 04:33:40 200 ug/dL F 250.0-425.0 Iron binding capacity.unsaturated [Mass/volume] in Serum or Plasma 2024-09-05 04:27:28 187 ug/dL F 75.0-360.0 Iron [Mass/volume] in Serum or Plasma 2024-09-05 04:27:28 13 ug/dL F 65.0-175.0 Ferritin [Mass/volume] in Serum or Plasma 2024-09-05 02:25:42 941 ng/mL F 22.0-322.0 HCT CALC HGBX3 2024-09-04 16:21:45 22.8 % F 42.0-52.0 Erythrocyte distribution width [Ratio] by Automated count 2024-09-04 16:21:09 19 % F 11.0-15.0 Hemoglobin [Mass/volume] in Blood 2024-09-04 16:21:09 7.6 g/dL F 14.0-18.0 Platelets [#/volume] in Blood by Automated count 2024-09-04 16:21:09 301 x 10^3 cells/uL F 140.0-450.0 MCH [Entitic mass] by Automated count 2024-09-04 16:21:09 30 pg F 25.9-34.2 MCHC [Mass/volume] by Automated count 2024-09-04 16:21:09 31 g/dL F 29.6-35.3 Erythrocytes [#/volume] in Blood by Automated count 2024-09-04 16:21:09 2.54 x 10^6 cells/uL F 4.6-6.2 Hematocrit [Volume Fraction] of Blood by Automated count 2024-09-04 16:21:09 24.6 % F 41.0-53.0 MCV [Entitic volume] by Automated count 2024-09-04 16:21:09 96.7 fL F 80.0-100.0 TIBC Iron binding capacity.unsaturated [Mass/volume] in Serum or Plasma Iron [Mass/volume] in Serum or Plasma IRON SATURATION Comorbidities Description Draw Date Result/Unit Status Ref Range Result Comments Hemoglobin A1c/Hemoglobin.total in Blood 2025-02-18 18:02:02 4.6 %A1c F 0.0-5.6 Hemoglobin A1c/Hemoglobin.total in Blood 2025-02-12 07:18:38 F Recollect - Jose Carlos ot obtain valid result Hemoglobin A1c/Hemoglobin.total in Blood 2025-02-05 03:02:10 F Recollect - Jose Carlos ot obtain valid result Hemoglobin A1c/Hemoglobin.total in Blood 2025-01-28 16:15:07 F Recollect - Jose Carlos ot obtain valid result Hemoglobin A1c/Hemoglobin.total in Blood 2025-01-28 16:15:07 F Recollect - Jose Carlos ot obtain valid result Hemoglobin A1c/Hemoglobin.total in Blood 2024-10-22 19:30:16 5.1 %A1c F 0.0-5.6 Hemoglobin A1c/Hemoglobin.total in Blood 2024-10-06 16:04:38 F Recollect - Jose Carlos ot obtain valid result,Recollect - Cannot obtain valid result Hemoglobin A1c/Hemoglobin.total in Blood 2024-10-06 16:04:38 F Recollect - Jose Carlos ot obtain valid result,Recollect - Cannot obtain valid result Hemoglobin A1c/Hemoglobin.total in Blood 2024-10-06 16:04:38 F Recollect - Jose Carlos ot obtain valid result,Recollect - Cannot obtain valid result FluidBP Description Draw Date Result/Unit Status Ref Range Result Comments Sodium [Moles/volume] in Serum or Plasma 2025-02-24 05:49:40 145 mEq/L F 136.0-145.0 Sodium [Moles/volume] in Serum or Plasma 2025-02-24 05:49:40 145 mEq/L F 136.0-145.0 Sodium [Moles/volume] in Serum or Plasma 2025-01-26 20:41:04 142 mEq/L F 136.0-145.0 Sodium [Moles/volume] in Serum or Plasma 2025-01-26 20:41:04 142 mEq/L F 136.0-145.0 Sodium [Moles/volume] in Serum or Plasma 2024-12-30 01:59:09 142 mEq/L F 136.0-145.0 Sodium [Moles/volume] in Serum or Plasma 2024-11-04 06:59:37 141 mEq/L F 136.0-145.0 Sodium [Moles/volume] in Serum or Plasma 2024-10-07 07:08:05 139 mEq/L F 132.0-146.0 Sodium [Moles/volume] in Serum or Plasma 2024-10-07 07:08:05 139 mEq/L F 132.0-146.0 Sodium [Moles/volume] in Serum or Plasma 2024-09-05 04:27:28 133 mEq/L F 132.0-146.0 Sodium [Moles/volume] in Serum or Plasma General Description Draw Date Result/Unit Status Ref Range Result Comments Chloride [Moles/volume] in Serum or Plasma 2025-02-24 05:49:40 101 mEq/L F 98.0-107.0 Chloride [Moles/volume] in Serum or Plasma 2025-02-24 05:49:40 101 mEq/L F 98.0-107.0 Alanine aminotransferase [Enzymatic activity/volume] in Serum or Plasma 2025-02-23 14:38:25 21 U/L F 10.0-49.0 Aspartate aminotransferase [Enzymatic activity/volume] in Serum or Plasma 2025-02-23 14:38:25 16 U/L F 0.0-33.0 Alanine aminotransferase [Enzymatic activity/volume] in Serum or Plasma 2025-02-23 14:38:25 21 U/L F 10.0-49.0 Aspartate aminotransferase [Enzymatic activity/volume] in Serum or Plasma 2025-02-23 14:38:25 16 U/L F 0.0-33.0 Chloride [Moles/volume] in Serum or Plasma 2025-01-26 20:41:04 101 mEq/L F 98.0-107.0 Chloride [Moles/volume] in Serum or Plasma 2025-01-26 20:41:04 101 mEq/L F 98.0-107.0 Alanine aminotransferase [Enzymatic activity/volume] in Serum or Plasma 2025-01-26 14:02:23 22 U/L F 10.0-49.0 Aspartate aminotransferase [Enzymatic activity/volume] in Serum or Plasma 2025-01-26 14:02:23 18 U/L F 0.0-33.0 Alanine aminotransferase [Enzymatic activity/volume] in Serum or Plasma 2025-01-26 14:02:23 22 U/L F 10.0-49.0 Aspartate aminotransferase [Enzymatic activity/volume] in Serum or Plasma 2025-01-26 14:02:23 18 U/L F 0.0-33.0 Chloride [Moles/volume] in Serum or Plasma 2024-12-30 01:59:09 103 mEq/L F 98.0-107.0 Alanine aminotransferase [Enzymatic activity/volume] in Serum or Plasma 2024-12-29 16:50:14 25 U/L F 10.0-49.0 Aspartate aminotransferase [Enzymatic activity/volume] in Serum or Plasma 2024-12-29 16:50:14 17 U/L F 0.0-33.0 Chloride [Moles/volume] in Serum or Plasma 2024-11-04 06:59:37 102 mEq/L F 98.0-107.0 Alanine aminotransferase [Enzymatic activity/volume] in Serum or Plasma 2024-11-03 20:37:21 22 U/L F 10.0-49.0 Aspartate aminotransferase [Enzymatic activity/volume] in Serum or Plasma 2024-11-03 20:37:21 16 U/L F 0.0-33.0 Chloride [Moles/volume] in Serum or Plasma 2024-10-07 07:08:05 99 mEq/L F 99.0-109.0 Chloride [Moles/volume] in Serum or Plasma 2024-10-07 07:08:05 99 mEq/L F 99.0-109.0 Aluminum [Mass/volume] in Serum or Plasma 2024-10-06 18:39:24 10 ug/L F 0.0-9.0 Aluminum [Mass/volume] in Serum or Plasma 2024-10-06 18:39:24 10 ug/L F 0.0-9.0 Aluminum [Mass/volume] in Serum or Plasma 2024-10-06 18:39:24 10 ug/L F 0.0-9.0 Alanine aminotransferase [Enzymatic activity/volume] in Serum or Plasma 2024-10-06 17:40:27 34 U/L F 10.0-49.0 Aspartate aminotransferase [Enzymatic activity/volume] in Serum or Plasma 2024-10-06 17:40:27 23 U/L F 0.0-33.0 Aspartate aminotransferase [Enzymatic activity/volume] in Serum or Plasma 2024-10-06 17:40:27 23 U/L F 0.0-33.0 Alanine aminotransferase [Enzymatic activity/volume] in Serum or Plasma 2024-10-06 17:40:27 34 U/L F 10.0-49.0 Aspartate aminotransferase [Enzymatic activity/volume] in Serum or Plasma 2024-10-06 17:40:27 23 U/L F 0.0-33.0 Alanine aminotransferase [Enzymatic activity/volume] in Serum or Plasma 2024-10-06 17:40:27 34 U/L F 10.0-49.0 Aluminum [Mass/volume] in Serum or Plasma 2024-09-07 14:20:12 10 ug/L F 0.0-9.0 Chloride [Moles/volume] in Serum or Plasma 2024-09-05 04:27:28 95 mEq/L F 99.0-109.0 Aspartate aminotransferase [Enzymatic activity/volume] in Serum or Plasma 2024-09-04 16:49:23 28 U/L F 0.0-33.0 Chloride [Moles/volume] in Serum or Plasma Alanine aminotransferase [Enzymatic activity/volume] in Serum or Plasma InfectionVaccination Description Draw Date Result/Unit Status Ref Range Result Comments Basophils/100 leukocytes in Blood by Automated count 2025-02-23 16:14:07 0.3 % F Neutrophils/100 leukocytes in Blood by Automated count 2025-02-23 16:14:07 74 % F Monocytes/100 leukocytes in Blood by Automated count 2025-02-23 16:14:07 8.4 % F Eosinophils/100 leukocytes in Blood by Automated count 2025-02-23 16:14:07 4.7 % F Leukocytes [#/volume] in Blood by Automated count 2025-02-23 16:14:07 4.8 x 10^3 cells/uL F 4.0-11.0 Neutrophils [#/volume] in Blood by Automated count 2025-02-23 16:14:07 3530 Cells/uL F 2000.0-8800.0 Lymphocytes [#/volume] in Blood by Automated count 2025-02-23 16:14:07 596 Cells/uL F 620.0-3660.0 Monocytes [#/volume] in Blood by Automated count 2025-02-23 16:14:07 401 Cells/uL F 0.0-1100.0 Basophils [#/volume] in Blood by Automated count 2025-02-23 16:14:07 14 Cells/uL F 0.0-400.0 Eosinophils [#/volume] in Blood by Automated count 2025-02-23 16:14:07 224 Cells/uL F 0.0-700.0 Lymphocytes/100 leukocytes in Blood by Automated count 2025-02-23 16:14:07 12.5 % F Basophils/100 leukocytes in Blood by Automated count 2025-02-23 16:14:07 0.3 % F Neutrophils/100 leukocytes in Blood by Automated count 2025-02-23 16:14:07 74 % F Monocytes/100 leukocytes in Blood by Automated count 2025-02-23 16:14:07 8.4 % F Lymphocytes/100 leukocytes in Blood by Automated count 2025-02-23 16:14:07 12.5 % F Eosinophils/100 leukocytes in Blood by Automated count 2025-02-23 16:14:07 4.7 % F Leukocytes [#/volume] in Blood by Automated count 2025-02-23 16:14:07 4.8 x 10^3 cells/uL F 4.0-11.0 Lymphocytes [#/volume] in Blood by Automated count 2025-02-23 16:14:07 596 Cells/uL F 620.0-3660.0 Neutrophils [#/volume] in Blood by Automated count 2025-02-23 16:14:07 3530 Cells/uL F 2000.0-8800.0 Monocytes [#/volume] in Blood by Automated count 2025-02-23 16:14:07 401 Cells/uL F 0.0-1100.0 Basophils [#/volume] in Blood by Automated count 2025-02-23 16:14:07 14 Cells/uL F 0.0-400.0 Eosinophils [#/volume] in Blood by Automated count 2025-02-23 16:14:07 224 Cells/uL F 0.0-700.0 Basophils/100 leukocytes in Blood by Automated count 2025-01-27 05:18:11 0.8 % F Neutrophils/100 leukocytes in Blood by Automated count 2025-01-27 05:18:11 74.6 % F Lymphocytes/100 leukocytes in Blood by Automated count 2025-01-27 05:18:11 13.8 % F Monocytes/100 leukocytes in Blood by Automated count 2025-01-27 05:18:11 7.3 % F Eosinophils/100 leukocytes in Blood by Automated count 2025-01-27 05:18:11 3.5 % F Leukocytes [#/volume] in Blood by Automated count 2025-01-27 05:18:11 4.8 x 10^3 cells/uL F 4.0-11.0 Neutrophils [#/volume] in Blood by Automated count 2025-01-27 05:18:11 3551 Cells/uL F 2000.0-8800.0 Lymphocytes [#/volume] in Blood by Automated count 2025-01-27 05:18:11 657 Cells/uL F 620.0-3660.0 Monocytes [#/volume] in Blood by Automated count 2025-01-27 05:18:11 347 Cells/uL F 0.0-1100.0 Basophils [#/volume] in Blood by Automated count 2025-01-27 05:18:11 38 Cells/uL F 0.0-400.0 Eosinophils [#/volume] in Blood by Automated count 2025-01-27 05:18:11 167 Cells/uL F 0.0-700.0 Basophils/100 leukocytes in Blood by Automated count 2025-01-27 05:18:11 0.8 % F Lymphocytes/100 leukocytes in Blood by Automated count 2025-01-27 05:18:11 13.8 % F Neutrophils/100 leukocytes in Blood by Automated count 2025-01-27 05:18:11 74.6 % F Monocytes/100 leukocytes in Blood by Automated count 2025-01-27 05:18:11 7.3 % F Eosinophils/100 leukocytes in Blood by Automated count 2025-01-27 05:18:11 3.5 % F Leukocytes [#/volume] in Blood by Automated count 2025-01-27 05:18:11 4.8 x 10^3 cells/uL F 4.0-11.0 Lymphocytes [#/volume] in Blood by Automated count 2025-01-27 05:18:11 657 Cells/uL F 620.0-3660.0 Basophils [#/volume] in Blood by Automated count 2025-01-27 05:18:11 38 Cells/uL F 0.0-400.0 Neutrophils [#/volume] in Blood by Automated count 2025-01-27 05:18:11 3551 Cells/uL F 2000.0-8800.0 Monocytes [#/volume] in Blood by Automated count 2025-01-27 05:18:11 347 Cells/uL F 0.0-1100.0 Eosinophils [#/volume] in Blood by Automated count 2025-01-27 05:18:11 167 Cells/uL F 0.0-700.0 Basophils/100 leukocytes in Blood by Automated count 2024-12-29 20:22:09 0.6 % F Lymphocytes/100 leukocytes in Blood by Automated count 2024-12-29 20:22:09 10.8 % F Neutrophils/100 leukocytes in Blood by Automated count 2024-12-29 20:22:09 76.7 % F Monocytes/100 leukocytes in Blood by Automated count 2024-12-29 20:22:09 7.2 % F Eosinophils/100 leukocytes in Blood by Automated count 2024-12-29 20:22:09 4.7 % F Leukocytes [#/volume] in Blood by Automated count 2024-12-29 20:22:09 4.5 x 10^3 cells/uL F 4.0-11.0 Neutrophils [#/volume] in Blood by Automated count 2024-12-29 20:22:09 3475 Cells/uL F 2000.0-8800.0 Monocytes [#/volume] in Blood by Automated count 2024-12-29 20:22:09 326 Cells/uL F 0.0-1100.0 Lymphocytes [#/volume] in Blood by Automated count 2024-12-29 20:22:09 489 Cells/uL F 620.0-3660.0 Basophils [#/volume] in Blood by Automated count 2024-12-29 20:22:09 27 Cells/uL F 0.0-400.0 Eosinophils [#/volume] in Blood by Automated count 2024-12-29 20:22:09 213 Cells/uL F 0.0-700.0 Monocytes/100 leukocytes in Blood by Automated count 2024-11-03 19:45:09 5.2 % F Basophils [#/volume] in Blood by Automated count 2024-11-03 19:45:09 26 Cells/uL F 0.0-400.0 Neutrophils [#/volume] in Blood by Automated count 2024-11-03 19:45:09 5353 Cells/uL F 2000.0-8800.0 Leukocytes [#/volume] in Blood by Automated count 2024-11-03 19:45:09 6.5 x 10^3 cells/uL F 4.0-11.0 Monocytes [#/volume] in Blood by Automated count 2024-11-03 19:45:09 339 Cells/uL F 0.0-1100.0 Lymphocytes/100 leukocytes in Blood by Automated count 2024-11-03 19:45:09 7.8 % F Eosinophils [#/volume] in Blood by Automated count 2024-11-03 19:45:09 287 Cells/uL F 0.0-700.0 Basophils/100 leukocytes in Blood by Automated count 2024-11-03 19:45:09 0.4 % F Lymphocytes [#/volume] in Blood by Automated count 2024-11-03 19:45:09 509 Cells/uL F 620.0-3660.0 Neutrophils/100 leukocytes in Blood by Automated count 2024-11-03 19:45:09 82.1 % F Eosinophils/100 leukocytes in Blood by Automated count 2024-11-03 19:45:09 4.4 % F Basophils/100 leukocytes in Blood by Automated count 2024-10-06 14:20:06 0.3 % F Neutrophils/100 leukocytes in Blood by Automated count 2024-10-06 14:20:06 78.6 % F Lymphocytes/100 leukocytes in Blood by Automated count 2024-10-06 14:20:06 11 % F Monocytes/100 leukocytes in Blood by Automated count 2024-10-06 14:20:06 4.1 % F Eosinophils/100 leukocytes in Blood by Automated count 2024-10-06 14:20:06 5.9 % F Leukocytes [#/volume] in Blood by Automated count 2024-10-06 14:20:06 7.7 x 10^3 cells/uL F 4.0-11.0 Neutrophils [#/volume] in Blood by Automated count 2024-10-06 14:20:06 6036 Cells/uL F 2000.0-8800.0 Lymphocytes [#/volume] in Blood by Automated count 2024-10-06 14:20:06 845 Cells/uL F 620.0-3660.0 Monocytes [#/volume] in Blood by Automated count 2024-10-06 14:20:06 315 Cells/uL F 0.0-1100.0 Basophils [#/volume] in Blood by Automated count 2024-10-06 14:20:06 23 Cells/uL F 0.0-400.0 Eosinophils [#/volume] in Blood by Automated count 2024-10-06 14:20:06 453 Cells/uL F 0.0-700.0 Monocytes/100 leukocytes in Blood by Automated count 2024-10-06 14:20:06 4.1 % F Eosinophils/100 leukocytes in Blood by Automated count 2024-10-06 14:20:06 5.9 % F Basophils/100 leukocytes in Blood by Automated count 2024-10-06 14:20:06 0.3 % F Neutrophils/100 leukocytes in Blood by Automated count 2024-10-06 14:20:06 78.6 % F Lymphocytes/100 leukocytes in Blood by Automated count 2024-10-06 14:20:06 11 % F Monocytes [#/volume] in Blood by Automated count 2024-10-06 14:20:06 315 Cells/uL F 0.0-1100.0 Eosinophils [#/volume] in Blood by Automated count 2024-10-06 14:20:06 453 Cells/uL F 0.0-700.0 Basophils [#/volume] in Blood by Automated count 2024-10-06 14:20:06 23 Cells/uL F 0.0-400.0 Neutrophils [#/volume] in Blood by Automated count 2024-10-06 14:20:06 6036 Cells/uL F 2000.0-8800.0 Leukocytes [#/volume] in Blood by Automated count 2024-10-06 14:20:06 7.7 x 10^3 cells/uL F 4.0-11.0 Lymphocytes [#/volume] in Blood by Automated count 2024-10-06 14:20:06 845 Cells/uL F 620.0-3660.0 Eosinophils/100 leukocytes in Blood by Automated count 2024-10-06 14:20:06 5.9 % F Neutrophils [#/volume] in Blood by Automated count 2024-10-06 14:20:06 6036 Cells/uL F 2000.0-8800.0 Eosinophils [#/volume] in Blood by Automated count 2024-10-06 14:20:06 453 Cells/uL F 0.0-700.0 Lymphocytes/100 leukocytes in Blood by Automated count 2024-10-06 14:20:06 11 % F Neutrophils/100 leukocytes in Blood by Automated count 2024-10-06 14:20:06 78.6 % F Basophils/100 leukocytes in Blood by Automated count 2024-10-06 14:20:06 0.3 % F Monocytes/100 leukocytes in Blood by Automated count 2024-10-06 14:20:06 4.1 % F Leukocytes [#/volume] in Blood by Automated count 2024-10-06 14:20:06 7.7 x 10^3 cells/uL F 4.0-11.0 Lymphocytes [#/volume] in Blood by Automated count 2024-10-06 14:20:06 845 Cells/uL F 620.0-3660.0 Monocytes [#/volume] in Blood by Automated count 2024-10-06 14:20:06 315 Cells/uL F 0.0-1100.0 Basophils [#/volume] in Blood by Automated count 2024-10-06 14:20:06 23 Cells/uL F 0.0-400.0 Lymphocytes/100 leukocytes in Blood by Automated count 2024-09-04 16:21:09 4.9 % F Neutrophils/100 leukocytes in Blood by Automated count 2024-09-04 16:21:09 88.4 % F Eosinophils/100 leukocytes in Blood by Automated count 2024-09-04 16:21:09 1.5 % F Basophils/100 leukocytes in Blood by Automated count 2024-09-04 16:21:09 0.2 % F Monocytes/100 leukocytes in Blood by Automated count 2024-09-04 16:21:09 5.1 % F Monocytes [#/volume] in Blood by Automated count 2024-09-04 16:21:09 525 Cells/uL F 0.0-1100.0 Basophils [#/volume] in Blood by Automated count 2024-09-04 16:21:09 21 Cells/uL F 0.0-400.0 Eosinophils [#/volume] in Blood by Automated count 2024-09-04 16:21:09 154 Cells/uL F 0.0-700.0 Neutrophils [#/volume] in Blood by Automated count 2024-09-04 16:21:09 9096 Cells/uL F 2000.0-8800.0 Leukocytes [#/volume] in Blood by Automated count 2024-09-04 16:21:09 10.3 x 10^3 cells/uL F 4.0-11.0 Lymphocytes [#/volume] in Blood by Automated count 2024-09-04 16:21:09 504 Cells/uL F 620.0-3660.0 MineralBone Disorder Description Draw Date Result/Unit Status Ref Range Result Comments CA CORRECTED 2025-03-17 06:35:52 9.9 mg/dL F CA CORRECTED 2025-03-17 06:35:52 9.9 mg/dL F CA/PHOS PRODUCT 2025-03-17 06:33:07 44.2 Calc F 21.0-53.0 CA*PO4 CORRCTD 2025-03-17 06:33:07 45.6 Calc F 21.0-53.0 CA/PHOS PRODUCT 2025-03-17 06:33:07 44.2 Calc F 21.0-53.0 CA*PO4 CORRCTD 2025-03-17 06:33:07 45.6 Calc F 21.0-53.0 Calcium [Mass/volume] in Serum or Plasma 2025-03-17 06:28:50 9.6 mg/dL F 8.7-10.4 Calcium [Mass/volume] in Serum or Plasma 2025-03-17 06:28:50 9.6 mg/dL F 8.7-10.4 Parathyrin.intact [Mass/volume] in Serum or Plasma 2025-03-17 01:25:16 26 pg/mL F 18.0-80.0 Parathyrin.intact [Mass/volume] in Serum or Plasma 2025-03-17 01:25:16 26 pg/mL F 18.0-80.0 Phosphate [Mass/volume] in Serum or Plasma 2025-03-17 00:34:18 4.6 mg/dL F 2.4-5.1 Phosphate [Mass/volume] in Serum or Plasma 2025-03-17 00:34:18 4.6 mg/dL F 2.4-5.1 Alkaline phosphatase [Enzymatic activity/volume] in Serum or Plasma 2025-02-23 14:38:25 138 U/L F 46.0-116.0 Alkaline phosphatase [Enzymatic activity/volume] in Serum or Plasma 2025-02-23 14:38:25 138 U/L F 46.0-116.0 CA CORRECTED 2025-02-12 03:49:25 9.1 mg/dL F CA/PHOS PRODUCT 2025-02-12 03:47:21 47.5 Calc F 21.0-53.0 CA*PO4 CORRCTD 2025-02-12 03:47:21 49.2 Calc F 21.0-53.0 Calcium [Mass/volume] in Serum or Plasma 2025-02-12 03:02:51 8.8 mg/dL F 8.7-10.4 Phosphate [Mass/volume] in Serum or Plasma 2025-02-10 16:21:18 5.4 mg/dL F 2.4-5.1 Parathyrin.intact [Mass/volume] in Serum or Plasma 2025-02-10 13:47:22 53 pg/mL F 18.0-80.0 Alkaline phosphatase [Enzymatic activity/volume] in Serum or Plasma 2025-01-26 14:02:23 140 U/L F 46.0-116.0 Alkaline phosphatase [Enzymatic activity/volume] in Serum or Plasma 2025-01-26 14:02:23 140 U/L F 46.0-116.0 CA CORRECTED 2025-01-13 07:45:12 9.1 mg/dL F CA CORRECTED 2025-01-13 07:45:12 9.1 mg/dL F CA/PHOS PRODUCT 2025-01-13 07:42:51 48.5 Calc F 21.0-53.0 CA*PO4 CORRCTD 2025-01-13 07:42:51 51.6 Calc F 21.0-53.0 CA/PHOS PRODUCT 2025-01-13 07:42:51 48.5 Calc F 21.0-53.0 CA*PO4 CORRCTD 2025-01-13 07:42:51 51.6 Calc F 21.0-53.0 Calcium [Mass/volume] in Serum or Plasma 2025-01-13 07:07:53 8.5 mg/dL F 8.7-10.4 Calcium [Mass/volume] in Serum or Plasma 2025-01-13 07:07:53 8.5 mg/dL F 8.7-10.4 Parathyrin.intact [Mass/volume] in Serum or Plasma 2025-01-12 20:54:19 119 pg/mL F 18.0-80.0 Parathyrin.intact [Mass/volume] in Serum or Plasma 2025-01-12 20:54:19 119 pg/mL F 18.0-80.0 Phosphate [Mass/volume] in Serum or Plasma 2025-01-12 20:02:13 5.7 mg/dL F 2.4-5.1 Phosphate [Mass/volume] in Serum or Plasma 2025-01-12 20:02:13 5.7 mg/dL F 2.4-5.1 Alkaline phosphatase [Enzymatic activity/volume] in Serum or Plasma 2024-12-29 16:50:14 136 U/L F 46.0-116.0 CA CORRECTED 2024-11-04 07:24:03 8.5 mg/dL F CA*PO4 CORRCTD 2024-11-04 07:20:44 52.5 Calc F 21.0-53.0 CA/PHOS PRODUCT 2024-11-04 07:20:44 49 Calc F 21.0-53.0 Calcium [Mass/volume] in Serum or Plasma 2024-11-04 06:59:37 7.9 mg/dL F 8.7-10.4 Parathyrin.intact [Mass/volume] in Serum or Plasma 2024-11-03 22:16:15 247 pg/mL F 18.0-80.0 Phosphate [Mass/volume] in Serum or Plasma 2024-11-03 20:37:21 6.2 mg/dL F 2.4-5.1 Alkaline phosphatase [Enzymatic activity/volume] in Serum or Plasma 2024-11-03 20:37:21 152 U/L F 46.0-116.0 Parathyrin.intact [Mass/volume] in Serum or Plasma 2024-10-22 19:34:10 165 pg/mL F 18.0-80.0 CA CORRECTED 2024-10-07 14:13:49 8.8 mg/dL F CA CORRECTED 2024-10-07 14:13:49 8.8 mg/dL F CA*PO4 CORRCTD 2024-10-07 10:09:32 45.9 Calc F 21.0-53.0 CA/PHOS PRODUCT 2024-10-07 10:09:32 42.1 Calc F 21.0-53.0 CA/PHOS PRODUCT 2024-10-07 10:09:32 42.1 Calc F 21.0-53.0 CA*PO4 CORRCTD 2024-10-07 10:09:32 45.9 Calc F 21.0-53.0 Phosphate [Mass/volume] in Serum or Plasma 2024-10-07 07:08:05 5.2 mg/dL F 2.4-5.1 Phosphate [Mass/volume] in Serum or Plasma 2024-10-07 07:08:05 5.2 mg/dL F 2.4-5.1 Calcium [Mass/volume] in Serum or Plasma 2024-10-07 07:07:59 8.1 mg/dL F 8.7-10.4 Calcium [Mass/volume] in Serum or Plasma 2024-10-07 07:07:59 8.1 mg/dL F 8.7-10.4 Alkaline phosphatase [Enzymatic activity/volume] in Serum or Plasma 2024-10-06 17:40:27 138 U/L F 46.0-116.0 Alkaline phosphatase [Enzymatic activity/volume] in Serum or Plasma 2024-10-06 17:40:27 138 U/L F 46.0-116.0 Alkaline phosphatase [Enzymatic activity/volume] in Serum or Plasma 2024-10-06 17:40:27 138 U/L F 46.0-116.0 Parathyrin.intact [Mass/volume] in Serum or Plasma 2024-10-06 16:39:25 F Parathyrin.intact [Mass/volume] in Serum or Plasma 2024-10-06 16:39:25 F CANCELED - TEST CANCELED Parathyrin.intact [Mass/volume] in Serum or Plasma 2024-10-06 16:39:25 F CANCELED - TEST CANCELED 25-Hydroxyvitamin D3+25-Hydroxyvitamin D2 [Mass/volume] in Serum or Plasma 2024-10-06 13:56:18 43 ng/mL F 25-Hydroxyvitamin D3+25-Hydroxyvitamin D2 [Mass/volume] in Serum or Plasma 2024-10-06 13:56:18 43 ng/mL F 25-Hydroxyvitamin D3+25-Hydroxyvitamin D2 [Mass/volume] in Serum or Plasma 2024-10-06 13:56:18 43 ng/mL F CA CORRECTED 2024-09-05 04:37:22 9.2 mg/dL F [...] Plasma 2024-09-04 16:49:23 144 U/L F 46.0-116.0 Calcium [Mass/volume] in Serum or Plasma CA*PO4 CORRCTD Phosphate [Mass/volume] in Serum or Plasma CA CORRECTED CA/PHOS PRODUCT Nutrition Description Draw Date Result/Unit Status Ref Range Result Comments Potassium [Moles/volume] in Serum or Plasma 2025-02-24 05:49:40 4.4 mEq/L F 3.5-5.1 Potassium [Moles/volume] in Serum or Plasma 2025-02-24 05:49:40 4.4 mEq/L F 3.5-5.1 GLOBULIN 2025-02-23 14:39:09 1.6 g/dL F 0.9-5.0 A/G RATIO 2025-02-23 14:39:09 2.3 Calc F 1.0-2.5 GLOBULIN 2025-02-23 14:39:09 1.6 g/dL F 0.9-5.0 A/G RATIO 2025-02-23 14:39:09 2.3 Calc F 1.0-2.5 Albumin [Mass/volume] in Serum or Plasma by Bromocresol green (BCG) dye binding method 2025-02-23 14:38:25 3.6 g/dL F 3.2-4.8 Bicarbonate [Moles/volume] in Serum or Plasma 2025-02-23 14:38:25 30 mEq/L F 20.0-31.0 Glucose [Mass/volume] in Serum or Plasma 2025-02-23 14:38:25 114 mg/dL F 74.0-106.0 Lactate dehydrogenase [Enzymatic activity/volume] in Serum or Plasma 2025-02-23 14:38:25 181 U/L F 120.0-246.0 Protein [Mass/volume] in Serum or Plasma 2025-02-23 14:38:25 5.2 g/dL F 5.7-8.2 Bicarbonate [Moles/volume] in Serum or Plasma 2025-02-23 14:38:25 30 mEq/L F 20.0-31.0 Albumin [Mass/volume] in Serum or Plasma by Bromocresol green (BCG) dye binding method 2025-02-23 14:38:25 3.6 g/dL F 3.2-4.8 Glucose [Mass/volume] in Serum or Plasma 2025-02-23 14:38:25 114 mg/dL F 74.0-106.0 Lactate dehydrogenase [Enzymatic activity/volume] in Serum or Plasma 2025-02-23 14:38:25 181 U/L F 120.0-246.0 Protein [Mass/volume] in Serum or Plasma 2025-02-23 14:38:25 5.2 g/dL F 5.7-8.2 Potassium [Moles/volume] in Serum or Plasma 2025-01-26 20:41:04 4.8 mEq/L F 3.5-5.1 Potassium [Moles/volume] in Serum or Plasma 2025-01-26 20:41:04 4.8 mEq/L F 3.5-5.1 A/G RATIO 2025-01-26 14:03:05 2.3 Calc F 1.0-2.5 GLOBULIN 2025-01-26 14:03:05 1.6 g/dL F 0.9-5.0 A/G RATIO 2025-01-26 14:03:05 2.3 Calc F 1.0-2.5 GLOBULIN 2025-01-26 14:03:05 1.6 g/dL F 0.9-5.0 Albumin [Mass/volume] in Serum or Plasma by Bromocresol green (BCG) dye binding method 2025-01-26 14:02:23 3.6 g/dL F 3.2-4.8 Bicarbonate [Moles/volume] in Serum or Plasma 2025-01-26 14:02:23 27 mEq/L F 20.0-31.0 Glucose [Mass/volume] in Serum or Plasma 2025-01-26 14:02:23 149 mg/dL F 74.0-106.0 Lactate dehydrogenase [Enzymatic activity/volume] in Serum or Plasma 2025-01-26 14:02:23 196 U/L F 120.0-246.0 Protein [Mass/volume] in Serum or Plasma 2025-01-26 14:02:23 5.2 g/dL F 5.7-8.2 Albumin [Mass/volume] in Serum or Plasma by Bromocresol green (BCG) dye binding method 2025-01-26 14:02:23 3.6 g/dL F 3.2-4.8 Bicarbonate [Moles/volume] in Serum or Plasma 2025-01-26 14:02:23 27 mEq/L F 20.0-31.0 Glucose [Mass/volume] in Serum or Plasma 2025-01-26 14:02:23 149 mg/dL F 74.0-106.0 Lactate dehydrogenase [Enzymatic activity/volume] in Serum or Plasma 2025-01-26 14:02:23 196 U/L F 120.0-246.0 Protein [Mass/volume] in Serum or Plasma 2025-01-26 14:02:23 5.2 g/dL F 5.7-8.2 Potassium [Moles/volume] in Serum or Plasma 2024-12-30 01:59:09 4 mEq/L F 3.5-5.1 GLOBULIN 2024-12-29 16:51:16 1.6 g/dL F 0.9-5.0 A/G RATIO 2024-12-29 16:51:16 2.1 Calc F 1.0-2.5 Albumin [Mass/volume] in Serum or Plasma by Bromocresol green (BCG) dye binding method 2024-12-29 16:50:14 3.3 g/dL F 3.2-4.8 Bicarbonate [Moles/volume] in Serum or Plasma 2024-12-29 16:50:14 26 mEq/L F 20.0-31.0 Glucose [Mass/volume] in Serum or Plasma 2024-12-29 16:50:14 171 mg/dL F 74.0-106.0 Lactate dehydrogenase [Enzymatic activity/volume] in Serum or Plasma 2024-12-29 16:50:14 170 U/L F 120.0-246.0 Protein [Mass/volume] in Serum or Plasma 2024-12-29 16:50:14 4.9 g/dL F 5.7-8.2 Potassium [Moles/volume] in Serum or Plasma 2024-11-04 06:59:37 3.9 mEq/L F 3.5-5.1 A/G RATIO 2024-11-03 20:38:29 2.1 Calc F 1.0-2.5 GLOBULIN 2024-11-03 20:38:29 1.6 g/dL F 0.9-5.0 Protein [Mass/volume] in Serum or Plasma 2024-11-03 20:37:21 4.9 g/dL F 5.7-8.2 Lactate dehydrogenase [Enzymatic activity/volume] in Serum or Plasma 2024-11-03 20:37:21 197 U/L F 120.0-246.0 Glucose [Mass/volume] in Serum or Plasma 2024-11-03 20:37:21 173 mg/dL F 74.0-106.0 Bicarbonate [Moles/volume] in Serum or Plasma 2024-11-03 20:37:21 26 mEq/L F 20.0-31.0 Albumin [Mass/volume] in Serum or Plasma by Bromocresol green (BCG) dye binding method 2024-11-03 20:37:21 3.3 g/dL F 3.2-4.8 Potassium [Moles/volume] in Serum or Plasma 2024-10-07 07:08:05 4.5 mEq/L F 3.5-5.5 Potassium [Moles/volume] in Serum or Plasma 2024-10-07 07:08:05 4.5 mEq/L F 3.5-5.5 CHOL/HDL RATIO 2024-10-06 18:02:11 2.3 Calc F 3.3-5.0 A/G RATIO 2024-10-06 18:02:11 1.9 Calc F 1.0-2.5 LDL-CHOLESTEROL 2024-10-06 18:02:11 39 mg/dL F 0.0-99.0 GLOBULIN 2024-10-06 18:02:11 1.6 g/dL F 0.9-5.0 VLDL-CHOL(CALC) 2024-10-06 18:02:11 11 mg/dL F 0.0-29.0 VLDL-CHOL(CALC) 2024-10-06 18:02:11 11 mg/dL F 0.0-29.0 LDL-CHOLESTEROL 2024-10-06 18:02:11 39 mg/dL F 0.0-99.0 A/G RATIO 2024-10-06 18:02:11 1.9 Calc F 1.0-2.5 GLOBULIN 2024-10-06 18:02:11 1.6 g/dL F 0.9-5.0 CHOL/HDL RATIO 2024-10-06 18:02:11 2.3 Calc F 3.3-5.0 A/G RATIO 2024-10-06 18:02:11 1.9 Calc F 1.0-2.5 LDL-CHOLESTEROL 2024-10-06 18:02:11 39 mg/dL F 0.0-99.0 GLOBULIN 2024-10-06 18:02:11 1.6 g/dL F 0.9-5.0 VLDL-CHOL(CALC) 2024-10-06 18:02:11 11 mg/dL F 0.0-29.0 CHOL/HDL RATIO 2024-10-06 18:02:11 2.3 Calc F 3.3-5.0 Cholesterol [Mass/volume] in Serum or Plasma 2024-10-06 17:40:27 88 mg/dL F 0.0-199.0 Cholesterol in HDL [Mass/volume] in Serum or Plasma 2024-10-06 17:40:27 38 mg/dL F 40.0-60.0 Glucose [Mass/volume] in Serum or Plasma 2024-10-06 17:40:27 160 mg/dL F 70.0-99.0 Protein [Mass/volume] in Serum or Plasma 2024-10-06 17:40:27 4.7 g/dL F 5.7-8.2 Albumin [Mass/volume] in Serum or Plasma by Bromocresol green (BCG) dye binding method 2024-10-06 17:40:27 3.1 g/dL F 3.4-4.8 Lactate dehydrogenase [Enzymatic activity/volume] in Serum or Plasma 2024-10-06 17:40:27 199 U/L F 120.0-246.0 Protein [Mass/volume] in Serum or Plasma 2024-10-06 17:40:27 54 mg/dL F 0.0-149.0 Bicarbonate [Moles/volume] in Serum or Plasma 2024-10-06 17:40:27 29 mEq/L F 20.0-31.0 Protein [Mass/volume] in Serum or Plasma 2024-10-06 17:40:27 54 mg/dL F 0.0-149.0 Cholesterol [Mass/volume] in Serum or Plasma 2024-10-06 17:40:27 88 mg/dL F 0.0-199.0 Lactate dehydrogenase [Enzymatic activity/volume] in Serum or Plasma 2024-10-06 17:40:27 199 U/L F 120.0-246.0 Bicarbonate [Moles/volume] in Serum or Plasma 2024-10-06 17:40:27 29 mEq/L F 20.0-31.0 Albumin [Mass/volume] in Serum or Plasma by Bromocresol green (BCG) dye binding method 2024-10-06 17:40:27 3.1 g/dL F 3.4-4.8 Cholesterol in HDL [Mass/volume] in Serum or Plasma 2024-10-06 17:40:27 38 mg/dL F 40.0-60.0 Protein [Mass/volume] in Serum or Plasma 2024-10-06 17:40:27 4.7 g/dL F 5.7-8.2 Glucose [Mass/volume] in Serum or Plasma 2024-10-06 17:40:27 160 mg/dL F 70.0-99.0 Bicarbonate [Moles/volume] in Serum or Plasma 2024-10-06 17:40:27 29 mEq/L F 20.0-31.0 Protein [Mass/volume] in Serum or Plasma 2024-10-06 17:40:27 4.7 g/dL F 5.7-8.2 Cholesterol in HDL [Mass/volume] in Serum or Plasma 2024-10-06 17:40:27 38 mg/dL F 40.0-60.0 Cholesterol [Mass/volume] in Serum or Plasma 2024-10-06 17:40:27 88 mg/dL F 0.0-199.0 Albumin [Mass/volume] in Serum or Plasma by Bromocresol green (BCG) dye binding method 2024-10-06 17:40:27 3.1 g/dL F 3.4-4.8 Glucose [Mass/volume] in Serum or Plasma 2024-10-06 17:40:27 160 mg/dL F 70.0-99.0 Lactate dehydrogenase [Enzymatic activity/volume] in Serum or Plasma 2024-10-06 17:40:27 199 U/L F 120.0-246.0 Protein [Mass/volume] in Serum or Plasma 2024-10-06 17:40:27 54 mg/dL F 0.0-149.0 Potassium [Moles/volume] in Serum or Plasma 2024-09-05 04:27:28 4.9 mEq/L F 3.5-5.5 VLDL-CHOL(CALC) 2024-09-04 16:50:20 7 mg/dL F 0.0-29.0 LDL-CHOLESTEROL 2024-09-04 16:50:20 42 mg/dL F 0.0-99.0 A/G RATIO 2024-09-04 16:50:20 1.8 Calc F 1.0-2.5 GLOBULIN 2024-09-04 16:50:20 1.8 g/dL F 0.9-5.0 CHOL/HDL RATIO 2024-09-04 16:50:20 2.8 Calc F 3.3-5.0 Protein [Mass/volume] in Serum or Plasma 2024-09-04 16:49:23 36 mg/dL F 0.0-149.0 Cholesterol [Mass/volume] in Serum or Plasma 2024-09-04 16:49:23 77 mg/dL F 0.0-199.0 Lactate dehydrogenase [Enzymatic activity/volume] in Serum or Plasma 2024-09-04 16:49:23 176 U/L F 120.0-246.0 Bicarbonate [Moles/volume] in Serum or Plasma 2024-09-04 16:49:23 25 mEq/L F 20.0-31.0 Albumin [Mass/volume] in Serum or Plasma by Bromocresol green (BCG) dye binding method 2024-09-04 16:49:23 3.2 g/dL F 3.4-4.8 Cholesterol in HDL [Mass/volume] in Serum or Plasma 2024-09-04 16:49:23 28 mg/dL F 40.0-60.0 Protein [Mass/volume] in Serum or Plasma 2024-09-04 16:49:23 5 g/dL F 5.7-8.2 Potassium [Moles/volume] in Serum or Plasma Encounters No encounter information to report Immunizations Ordered Immunization Name Filled Immunization Name Date Status Comments Refusal Reason Influenza, high-dose, quadrivalent, 2025-03-05 12:16:32 Hep B, adult 2025-01-13 12:53:29 Hep B, adult 2024-12-09 12:10:00 Hep B, adult 2024-11-09 15:30:00 TST-PPD intradermal 2024-09-20 18:30:00 Pneumococcal conjugate PCV20, polysaccharide [id number] conjugate, adjuvant, PF 2024-05-03 06:00:00 Influenza Vaccination 2024-05-03 06:00:00 pneumococcal polysaccharide PPV23 2024-02-19 05:00:00 Covid-19 Vaccination 2021-12-22 05:00:00 Covid-19 Vaccination 2020-10-04 05:00:00 Covid-19 Vaccination 2020-09-13 05:00:00 Covid-19 Vaccination 2020-08-16 05:00:00 Pneumococcal conjugate PCV 13 2017-11-26 05:00:00 pneumococcal polysaccharide PPV23 2013-06-20 06:00:00 Plan of Treatment Planned Activity Provider Planned Date Details Commen ts Diagnostic Test Pending [facility] 2025-03-17 06:42:[address] [code = 2265] Diagnostic Test Pending [facility] 2025-03-22 05:00:00 Hemoglobin [Mass/volume] in Blood [code = 718-7] Diagnostic Test Pending [facility] 2025-03-17 06:42:20 Reticulocytes/100 erythrocytes in Blood by Automated count [code = 15767-2] Future Scheduled Test [facility] 2025-03-29 05:00:00 Ferritin [Mass/volume] in Serum or Plasma [code = 2276-4] Diagnostic Test Pending [facility] 2025-03-24 06:34:17 Ferritin [Mass/volume] in Serum or Plasma [code = 2276-4] Future Scheduled Test [facility] 2025-03-29 05:00:00 Hemoglobin [Mass/volume] in Blood [code = 718-7] Future Scheduled Test [facility] 2025-04-02 06:32:49 Ferritin [Mass/volume] in Serum or Plasma [code = 2276-4] Diagnostic Test Pending [facility] 2024-10-05 06:14:09 Parathyrin.intact [Mass/volume] in Serum or Plasma [code = 2731-8] Diagnostic Test Pending [facility] 2024-10-05 06:14:21 Hemoglobin [Mass/volume] in Blood [code = 718-7] Diagnostic Test Pending [facility] 2024-10-05 06:14:24 Alanine aminotransferase [Enzymatic activity/volume] in Serum or Plasma [code = 1742-6] Diagnostic Test Pending [facility] 2024-10-04 19:34:11 Hemoglobin [Mass/volume] in Blood [code = 718-7] Diagnostic Test Pending [facility] 2024-10-04 18:38:37 Hemoglobin A1c/Hemoglobin.total in Blood [code = 4548-4] Diagnostic Test Pending [facility] 2024-10-05 06:14:14 Ferritin [Mass/volume] in Serum or Plasma [code = 2276-4] Diagnostic Test Pending [facility] 2024-10-04 18:45:21 Albumin [Mass/volume] in Serum or Plasma by Bromocresol green (BCG) dye binding method [code = 40963-7] Diagnostic Test Pending [facility] 2024-10-04 19:33:56 Parathyrin.intact [Mass/volume] in Serum or Plasma [code = 2731-8] Diagnostic Test Pending [facility] 2024-10-04 18:40:09 Aluminum [Mass/volume] in Serum or Plasma [code = 5574-9] Diagnostic Test Pending [facility] 2024-10-04 18:39:44 25-Hydroxyvitamin D3+25-Hydroxyvitamin D2 [Mass/volume] in Serum or Plasma [code = 57026-7] Diagnostic Test Pending [facility] 2024-10-04 18:36:00 Sodium [Moles/volume] in Serum or Plasma [code = 2951-2] Diagnostic Test Pending [facility] 2024-09-02 16:47:31 Sodium [Moles/volume] in Serum or Plasma [code = 2951-2] Diagnostic Test Pending [facility] 2024-10-04 18:34:11 Creatinine [Mass/volume] in Serum or Plasma [code = 2160-0] Diagnostic Test Pending [facility] 2024-10-04 18:35:32 Glucose [Mass/volume] in Serum or Plasma [code = 2345-7] Diagnostic Test Pending [facility] 2024-09-02 16:44:37 Ferritin [Mass/volume] in Serum or Plasma [code = 2276-4] Diagnostic Test Pending [facility] 2024-09-02 16:43:59 Creatinine [Mass/volume] in Serum or Plasma [code = 2160-0] Diagnostic Test Pending [facility] 2024-09-02 16:43:41 Aluminum [Mass/volume] in Serum or Plasma [code = 5574-9] Diagnostic Test Pending [facility] 2024-10-09 06:16:20 Reticulocytes/100 erythrocytes in Blood by Automated count [code = 15829-2] Diagnostic Test Pending [facility] 2024-10-09 06:16:[address] [code = 2265] Diagnostic Test Pending [facility] 2024-11-09 05:00:00 Hemoglobin [Mass/volume] in Blood [code = 718-7] Diagnostic Test Pending [facility] 2024-11-04 06:16:51 Ferritin [Mass/volume] in Serum or Plasma [code = 2276-4] Diagnostic Test Pending [facility] 2025-02-22 16:12:29 In-Center Hemodialysis Treatment [code = JQX625] Diagnostic Test Pending [facility] 2024-10-04 18:27:26 In-Center Hemodialysis Treatment [code = NCP916] Diet Order [facility] October 26, 2024 Diet Calorie 35 kcal/kg Fluid Value 1000 mL/d Phosphorus Value 1100 mg/d Potassium Value 300 mg/d Protein Value 1.4 gm/kg Sodium Value 2000 mg/d Calculated Weight 78 kg Diet [facility] At Home[facility] 2024 Observation Value Diet Calorie 30 kcal/kg Fluid Value 1200 mL/d Phosphorus Value 950 mg/d Potassium Value 2500 mg/d Protein Value 1.3 gm/kg Sodium Value 2000 mg/d Calculated Weight 73 kg [facility] 2025-05-07 06:00:00Engerix-B [code = 78533]
== END 2025-03-28 15:22 | disposition home or self-care (01) ==
PROVIDERS: PCP Family Medicine; Visit Provider Nurse Practitioner Adult Health
DX: R06.09 Other forms of dyspnea (principal); J18.9 Pneumonia, unspecified organism
CPT/HCPCS: 71046

== ENCOUNTER 2025-03-31 11:02 | Outpatient (CLI) | payer MEDICARE, MEDICAID, SELFPAY ==
[2025-03-31 11:16] LABS: Immature Granulocyte Percent A 0.4 % (0-0.5); Lymphocytes Absolute Auto 0.55 K/mm3 (0.9-3.2); Mean Corpuscular HGB Conc 29.4 g/dl (32-36); Mean Corpuscular Hemoglobin 30.0 pg (26-34); Mean Corpuscular Volume 102.0 fl (80-100); Nucleated Red Blood Cells Absolute Auto 0.000 K/mm3 (0.0-0.012); Nucleated Red Blood Cells Perc 0.0 % (0.0-0.2); Platelet Count Result 236 k/mm3 (150-375); Red Blood Count 2.00 M/mm3 (4.6-6.20); White Blood Count 5.6 K/mm3 (4.5-10.0)
[2025-03-31 11:18] LABS: Hematocrit 20.4 % (42.0-52.0); Hemoglobin 6.0 g/dL (14.0-18.0)
[2025-03-31 11:22] LABS: Schistocytes None Seen
[2025-03-31 11:23] LABS: Hypochromasia 1+
[2025-03-31 11:24] LABS: Anisocytosis 1+; Macrocytosis 1+ (NORMAL); Ovalocytes 1+
--- OUTSIDE RECORDS SUMMARY | 2025-03-31 12:12 | XMS_ITS | Encounter Summary ---
Author Organization [facility] - [facility] Address [address] [place] [address] Care Team Providers Care Bag Maker Name Role Phone Chandler Geronimo DO Primary Care Provide r Encounter Details Date Type Department Care Team (Late st Contact Info) Description 09/01/2024 MyChart Message Enc [facility] Medical Group Multispecialty Care - [facility] 3 [facility], [facility] [address] [place] [address] David Hamilton MD 3 [facility], [facility] [address] [place] [address] question Social History Tobacco Use [...] How often do you attend yarsani or mormon serv ices? Patient declined 10/10/2022 Do you [...] Recorded Patient Health Questionnaire-2 Score 0 07/26/2024 [facility] - Occupational Stress [...] place to sleep or slept in a custodial (including now)? No 10/10/2022 Housing Stability Vital Sign Answer [place] e Recorded In the last 12 months, was t here a time when you were not able to pay the mortgage or rent on time? No 08/24/2024 In the past 12 months, how m any times have you moved where you were living? 0 08/24/2024 At any time in the past 12 m [facility], were you homeless or living in a custodial (including now)? 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
--- OUTSIDE RECORDS SUMMARY | 2025-03-31 12:12 | XMS_ITS | Encounter Summary ---
Author Organization [facility] Address [address] [place] [address] Care Team Providers Care Filler Leaf Cutter Long Name Role Phone Chandler Geronimo DO Primary Care Provide r Encounter Details Date Type Department Care Team (Late st Contact Info) Description 07/28/2024 [place] Message Enc [facility] Medical [facility] [address] [phone] [place], [facility] Provider Orders Social History Tobacco Use Types Packs/Day Years Used Date Smoking Tobacco: Never Smokeless Tobacco: Never Alcohol Use Standard Drinks/Week Comments Never 0 (1 standard drink = 0.6 oz pur e alcohol) [facility] Utilities Answer Date Recorded In the past [facility] [employer], oil, or water [employer] threatened to shut off services in your [...] How often do you attend zoroastrianism or jew serv ices? Patient declined 10/10/2022 [...] Recorded Patient Health Questionnaire-2 Score 0 07/26/2024 [facility] - Occupational [...] any time in the past 12 m [facility], were you homeless or living in a longterm (including now)? 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
--- OUTSIDE RECORDS SUMMARY | 2025-03-31 12:12 | XMS_ITS | Encounter Summary ---
Author Organization [facility] Healthcare Address [address] [place] [address] Care Team Providers Care Production Specialist Name Role Phone Chandler Geronimo DO Primary Care Prov ider Encounter Details Date Type Department Care Team (Late st Contact Info) Description 09/10/2024 Orders Only [facility] [place] Health Information Management [address] [place] [phone] Scanning, Provider Social History Tobacco Use Types Packs/Day Years Used Date Smoking Tobacco: Never Assessed Sex and Gender Information Value Date Recorded Sex Assigned at Not on file Legal Sex Male 5:28 PM RESIDENT CARE ASSOCIATE Gender Identity Not on file Sexual Orientation [...] on filedocumented in this encounter Care Teams Production Specialist Relationship Specialty Start Date End Date Chandler Geronimo DO PCP - General Family Medicine 06/07/21 documented as of this encounter
--- OUTSIDE RECORDS SUMMARY | 2025-03-31 12:12 | XMS_ITS | Encounter Summary ---
Author Organization [facility] Healthcare Address [address] [place] [address] Care Team Providers Care Elevator Constructor Name Role Phone Chandler Geronimo DO Primary Care Prov ider Encounter Details Date Type Department Care Team (Late st Contact Info) Description 09/08/2024 Orders Only [facility] Health Information Management [address] [place] [phone] Scanning, Provider Social History Tobacco Use Types Packs/Day Years Used Date Smoking Tobacco: Never Assessed Sex and Gender Information Value Date Recorded Sex Assigned at Not on file Legal Sex Male 5:28 PM DRAFTER TOOL DESIGN Gender Identity Not on file Sexual Orientation [...] on filedocumented in this encounter Care Teams Elevator Constructor Relationship Specialty Start Date End Date Chandler Geronimo DO PCP - General Family Medicine 06/07/21 documented as of this encounter
--- OUTSIDE RECORDS SUMMARY | 2025-03-31 12:12 | XMS_ITS | Clinical Summary ---
Author Organization [facility] Address [address] [place] [address] Care Team Providers Care Loin Puller Name Role Phone Chandler Geronimo DO Primary [...] by mouth daily. Active epoetin rosette-epbx (RETACRIT) 09766 Units/mL injectionIndications:E nd Stage Renal Disease on Hemodialysis Inject 1 mL (10,000 Units total) into the skin 3 (three) times a week. Indications: Senior Care Kidney Failure Treated with Hemodialysis On Friday, Friday and Friday with hemodialysis 12 mL 025 Active allopurinol (ZYLOPRIM) 100 MG tabletIndications:Hype ruricemia Take 1 tablet (100 mg total) by mouth 3 (three) times a week. On Friday, Friday and Friday after hemodialysis 12 tablet 025 Active furosemide (LASIX) 40 MG tabletIndications:ESRD (end stage renal disease) on dialysis ([facility]) Take 3 tablets (120 mg total) by mouth 2 (two) times a day, 3 (three) days a week. Take 3 tablets (120 mg total) two times a day on non-dialysis days (Friday, Friday, and Friday) 96 tablet 025 Active B zeaodby-N-saokz acid 0.8 mg (DIALYVITE/NEPHRO-ROMINA ) Tab tabletIndications:End stage renal disease ([facility]) Take 1 tablet by mouth [...] stage 5, GFR less than 15 ml/min ([facility] HHS/HCC),Secondary hyperparathyroidism (HHS/HCC),Primary hypertension,Hyperkale abbie Take 1 tablet (4 mg total) by mouth nightly at bedtime. 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 Edema, unspecified type 06/28/2021 Acute kidney injury 05/29/2021 Resolved Problems Problem Noted Date Diagnosed Date Resolved Date Pneumonia 06/13/2021 06/19/2021 Encounters Date Type Department Care Team Description 03/28/2025 Orders Only [facility] [place] [id number] Non-Staff, Provider from Last 3 Months Immunizations Immunization Administration Dates Next Due Influenza (Generic) 05/03/2024,02/18/2014 Influenza Adult (Generic) 04/17/2023,04/05/2021 PFIZER COVID-19 (ORIGINAL FO RMULATION, PURPLE CAP) mRNA, LNP-S, PF, 30 MCG/0.3 ML DOSE 12/22/2021,10/04/2020 Pneumococcal (Pneumovax 23) 02/19/2024, 4,06/20/2013 Pneumococcal (Prevnar 13) 11/26/2017 Pneumococcal (Prevnar 20) 05/03/2024 Tdap (Generic) 08/27/2016,02/25/2016 Zoster (Zostavax) 42238 Unt/0.65Ml 02/25/2016 Family History Medical History Relation [...] drink = 0.6 oz pur e alcohol) [facility] Utilities Answer Date Recorded In the past 12 months has e [employer], gas, oil, or water [employer] threatened to shut off services in your [...] declined 10/10/2022 How often do you attend druze or religion serv ices? Patient declined 10/10/2022 Do you belong to any clubs o r organizations such as druze groups, unions, fraternal or athletic groups, or [...] Recorded Patient Health Questionnaire-2 Score 0 07/26/2024 [facility] - Occupational [...] place to sleep or slept in a skilled nursing (including now)? No 10/10/2022 Housing Stability Vital [...] the past 12 m [facility], were you homeless or living in a skilled nursing (including now)? 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 e Not on [...] (10 Years) Discontinued 05/29/2024, 05/28/2024 PHQ-2 (Physician [place]) Completed 07/26/2024 Colorectal Cancer Screening FIT/FOBT (1 [...] remain independent in ADLs upon discharge from [facility] General Aline Russell, RN Health - patient able to perform ADLs independently Lifestyle No [facility] technician - family caregiver with be involved in care transitions and discharge planning Lifestyle No Abby Eng RN Procedures Procedure Name Priority Date/Time Associated Diagnosis Comments OCCULT BLOOD, FECES Routine 08/28/2024 1 1:48 AM CDT HEMOGLOBIN, GLYCOSYLATED Routine 08/25/2024 6:44 AM CDT COLONOSCOPY Routine 05/28/2024 12:12 PM MVA REACTOR OPERATOR HEAD LIPID PANEL Routine 10/12/2022 7:06 AM CDT HEPATITIS PANEL,ACUTE Routine 05/30/2021 1:20 PM MVA REACTOR OPERATOR HEAD from Last 3 Months or Most Recently Relevant to Health Maintenance Results * (ABNORMAL) OCCULT BLOOD, FECES (08/28/2024 11:48 AM CDT) OCCULT BLOOD FECAL POSITIVE(A ) NEGATIVE 08/28/2024 12:57 PM CDT [facility] STOOL SPECIMEN / Unknown 08/28/2024 11:48 AM CDT David Hamilton MD BODY FLUIDS AND STOOLS ORDERAB LES Final Result [facility] [address] [place] [address], [place] [phone] * (ABNORMAL) HEMOGLOBIN, GLYCOSYLATED (08/25/2024 6:44 AM CDT) [facility] HGB A1C 5.9(H) <5.7 % 08/25/2024 9:03 AM CDT [facility] Comment: ADA GUIDELINES 2010 5.7 TO 6.4% INCREASED RISK OF DIABETES > OR = 6.5% CONSISTENT WITH DIABETES ESTIMATED AVG GLUCOSE 123 mg/dL 08/25/2024 9:03 AM CDT [facility] 08/25/2024 6:44 AM CDT Joann Sherman NP LABORATORY Final Result [facility] [address] [place] [id number], [place] [phone] * (ABNORMAL) LIPID PANEL (10/12/2022 7:06 AM CDT) [facility] CHOLESTEROL 110 <200 MG/DL 10/12/2022 8:01 AM CDT [facility] TRIGLYCERIDES 134 <150 MG/DL 10/12/2022 8:01 AM CDT [facility] HDL 35(L) >40.0 MG/DL 10/12/2022 8:01 AM T [facility] LDL (CALCULATED) 48 <100 MG/DL 10/13/19 8:01 AM CDT [facility] NON HDL CHOLESTEROL 75 <130 MG/DL 10/12 8:01 AM T [facility] CHOL/HDL RATIO 3.1 0.0 - 4.5 10/12/2022 8:01 AM T [facility] VLDL CALCULATION 27 5 - 55 MG/DL 10/12/2022 8:01 AM T [facility] LIPID INTERPRETATION 10/12/2022 8:01 AM T [facility] Comment: NIH CONCENSUS REPORT RECOMMENDATIONS: ADULT CHILD LOW RISK: CHOLESTEROL <200 <170 TRIGLYCERIDE <150 --- HDL >=60 --- LDL <100 <110 BORDERLINE: CHOLESTEROL 200-239 170-199 TRIGLYCERIDE 150-199 --- HDL 40-59 --- LDL 100-159 110-129 HIGH RISK: CHOLESTEROL >=240 >=200 TRIGLYCERIDE >=200 --- HDL <40 --- LDL >=160 >=130 10/12/2022 7:06 AM CDT us Josseline Tabares MD LABORATORY Final Result [facility] [address] [place] [address], * HEPATITIS PANEL,ACUTE (05/30/2021 1:20 PM MVA REACTOR OPERATOR HEAD) HEPATITIS B SURFACE AG NON-REACTI VE NON-REACTI VE 05/30/2021 3:16 PM MVA REACTOR OPERATOR HEAD [facility] HEP B CORE IGM NON-REACTI VE NON-REACTI VE 05/30/2021 3:16 PM MVA REACTOR OPERATOR HEAD [facility] HAV IGM NON-REACTI VE NON-REACTI VE 05/30/2021 3:16 PM MVA REACTOR OPERATOR HEAD [facility] HEPATITIS C AB NON-REACTI VE NON-REACTI VE 05/30/2021 3:16 PM MVA REACTOR OPERATOR HEAD [facility] 05/30/2021 1:20 PM MVA REACTOR OPERATOR HEAD us David Hamilton MD LABORATORY Final Result [facility] [address] [place] [address], [place] [phone] from Last 3 Months or Most Recently [...] 11:22 PM 06/03/2021 3:03 PM Care Teams Loin Puller Relationship Specialty Start Date End Date Chandler Geronimo DO [address] [place] [phone] PCP - General FAMILY PRACTICE 05/29/21
--- OUTSIDE RECORDS SUMMARY | 2025-03-31 12:12 | XMS_ITS | Clinical Summary ---
Author Organization [facility] Wong Holliday Address [address] [place] [address] Care Team Providers Care Fuel Storage Technician Name Role Phone Unavailable Primary Care Provider [...] Encounters Date Type Department Care Team Description 03/31/2025 Telephone [facility] Oncology and Hematology [facility] [address] [place] [phone] Iron Cunningham MD Lab Results 03/23/2025 External Device Data STL ABSTRACTION Provider, Abstract 03/22/2025 External Device Data STL ABSTRACTION Provider, Abstract 03/08/2025 External Device Data STL ABSTRACTION Provider, Abstract 02/15/2025 1:15 PM CDT Office Visit [facility] Oncology and Hematology [facility] [address] [place] [address] Iron Cunningham MD Chronic anemia (Primary Dx) 02/15/2025 External Device Data STL ABSTRACTION Provider, Abstract 02/15/2025 External Device Data STL ABSTRACTION Provider, Abstract 02/01/2025 External Device Data STL ABSTRACTION Provider, Abstract 01/24/2025 Telephone [facility] Radiology [id number] [place] [address] Ty Gloria, BOOKS BINDER Follow Up 01/21/2025 12:03 PM CDT Anesthesia Event [facility] Interventional Radiology [facility] [address] [place] [address] Vincent Ríos DO 01/21/2025 8:58 AM CDT - 01/21/2025 1:51 PM CDT Hospital Encounter [facility] Prepost Imaging [address] [place] [address] Iron Cunningham MD 4, [facility] Rae, [facility] Ir Chronic anemia Discharge Disposition: Home or Self Care 01/18/2025 External Device Data STL ABSTRACTION Provider, Abstract 01/18/2025 External Device Data STL ABSTRACTION Provider, Abstract 01/10/2025 Orders Only [facility] Oncology and Hematology [facility] [address] [place] [address] Iron Cunningham MD 01/10/2025 Telephone [facility] Oncology and Hematology - [facility] [address] [place] [address] Shirin Seymour RN blood transfusion question (No blood transfusin at this time.) 01/10/2025 Telephone [facility] Oncology and Hematology - [facility] [address] [place] [address] Shirin Seymour RN Lab Results 01/05/2025 Orders Only [facility] Oncology and Hematology - [facility] [address] [place] [address] Iron Cunningham MD Chronic anemia (Primary Dx) 12/30/2024 4:30 PM CDT Telephone Check Up [facility] Oncology and Hematology [facility] [address] [place] [address] Iron Cunningham MD Chronic anemia (Primary Dx) [...] st Contact Info) Description 05/12/2025 2:15 PM TWISTER TENDER Office Visit [facility] Oncology and Hematology - Surveyor [address] [facility] [address] [place] [address] Iron Cunningham MD [address] [facility] [address] [place] [address] Health Maintenance Due Date Last [...] 1 07/04/2023, 02/19/2024, 11/26/2017, Additional history exists Medicare [place] ([place]) Preventative Visit/Annual Wellness Visit Completed 02/03/2025, 02/03/2025 Procedures Procedure Name Priority Date/Time Associated Diagnosis [...] CASE REPORT Bone Marrow Pathology Report Case: [id number] Authorizing Provider: Jayson Henriquez MD Collected: 01/21/2025 12:17 PM Ordering Location: [facility] Interventional Received: 01/21/2025 01:51 PM Radiology [facility] Pathologist: Mayra Moser MD Specimens: A) - Bone marrow, Core, left iliac B) - Bone marrow, Clot, left iliac C) - Bone marrow, left iliac D) - Peripheral Blood Smear E) - Bone marrow, left iliac 9:33 AM CDT [facility] Just Above Cost [facility] ADDENDUM 1 This addendum is issued [...] macrocytic anemia is suggested. 9:33 AM CDT [facility] 3[employer] [facility] Addendum electronically signed by Mayra Moser MD [...] or increased/monoclonal plasma cell population 9:33 AM [facility] at 1833 CDT DIAGNOSIS COMMENT The patient is a 70-year-old [...] be reported in an addendum 9:33 AM [facility] GROSS DESCRIPTION The specimen is received [...] studies and MDS/CMML NGS analysis 9:33 AM [facility] MICROSCOPIC DESCRIPTION The slides are labeled [id number] and Bulmaro Chavez. PERIPHERAL BLOOD SMEAR Review [...] rare scattered B cells. 5 9:33 AM [facility] CLINICAL INFORMATION No Dx found. 5 9:33 AM [facility] IMMUNOPHENOTYPIC ANALYSIS Flow cytometric analysis from [...] cytometry analysis (27 markers) is performed by [employer], [place], [place]. To view the report, click the link below. 9:33 AM [facility] BM SMEARS AND/OR BIOPSIES 9:33 AM [facility] COMMENT Special stain, immunohistochemical, and/or in situ hybridization results are interpreted with controls that demonstrate appropriate staining reactions. Note on use of immunohistochemistry reagents and in situ hybridization probes: These tests were developed and their performance characteristics determined by [facility], Department of Laboratory Medicine. It has not [...] part or completely in the following laboratories: [facility], CLIA #[id number] [address] [place] [address] [facility], [place] #[id number] 1 [place] [address] [facility]/[place], [place] #[id number] [address] [place] [address] This report was created with the [employer] voice-activated dictation system. Inherent to this system is the possibility of syntax, grammar, punctuation and other errors that could impact the interpretation of the report. If there are interpretative questions about aspects of this report, please contact the performing pathologist. 9:33 AM [facility] Bone marrow ALL BONE MARROW / Unknown [...] PM CDT us Jayson Henriquez MD PATHOLOGY/CYTOLOGY [facility] Edited Result - Final [facility]# [id number] 5 [facility] [place] [address] * IR BIOPSY BONE MARROW (01/21/2025 12:09 PM CDT) Anatomical Region Laterality Modality X-Ray Angiograph y 01/21/2025 12:1 8 PM CDT Impressions 01/21/2025 2:57 PM CDT IMPRESSION: Successful left iliac bone marrow biopsy and aspiration. DICTATION LOCATION: Location 1 - [facility] Narrative 01/21/2025 2:57 PM CDT FLUOROSCOPY GUIDED [...] posterior left iliac was accessed with the OnControl biopsy device using realtime fluoroscopic guidance. A [...] posterior left iliac was accessed with the OnControl biopsy device using realtime fluoroscopic guidance. A [...] and aspiration. DICTATION LOCATION: Location 1 - [facility] Iron Cunningham MD IR ORDERABLES Final Result * MANUAL DIFFERENTIAL (01/21/2025 10:06 AM CDT) PLATELET EST. Consistent w Count 01/21/2025 11:20 AM CDT [facility] ANISOCYTOSIS 1+ /hpf 01/21/2025 11:20 AM CDT [facility] POIKILOCYTES 1+ /hpf 01/21/2025 11:20 AM CDT [facility] MACROCYTES 1+ /hpf 01/21/2025 11:20 AM CDT [facility] POLYCHROMASIA 1+ /hpf 01/21/2025 11:20 AM CDT [facility] HYPOCHROMIA 1+ /hpf 01/21/2025 11:20 AM CDT [facility] OVALOCYTES 1+ /hpf 01/21/2025 11:20 AM CDT [facility] Blood Venipuncture / Unknown 01/21/2025 10:06 AM CDT 01/21/2025 10:19 AM CDT Erasmo Bang MD HEMATOLOGY ORDERABLES COM Fin al Result [facility] Just Above Cost [facility]# [id number] 5 [facility] [place] [address] * (ABNORMAL) CBC WITH DIFFERENTIAL (01/21/2025 10:06 AM CDT) Only the most recent of3 resultswithin the time period is included. Pathologist [facility] WBC 5.0 4.0 - 9.8 K/uL 01/21/2025 10:57 AM CDT [facility] - [facility] [place] RBC 2.05(L) 4.50 - 5.40 M/uL 01/21/2025 10:57 AM T [facility] - [facility] [place] HEMOGLOBIN 6.2(LL) 13.6 - 16.5 g/dL 01/21/2025 10:57 AM T [facility] - [facility] [place] Comment: Verified by repeat analysis. HEMATOCRIT 20.8(L) 40.0 - 48.0 % 01/21/2025 10:57 AM CDT [facility] - [facility] MCV 101.5(H) 82.0 - 99.0 fL 01/21/2025 10:57 AM CDT [facility] - [facility] MCH 30.2 27.2 - 32.6 pg 01/21/2025 10:57 AM CDT [facility] - [facility] MCHC 29.8(L) 31.5 - 35.5 g/dL 01/21/2025 10:57 AM CDT [facility] - [facility] RDW 16.2(H) 11.5 - 14.5 % 01/21/2025 10:57 AM CDT [facility] - [facility] RDW-STDEV 60.3(H) 37.1 - 48.7 fL 01/21/2025 10:57 AM CDT [facility] - [facility] PLATELETS 240 140 - 350 K/uL 01/21/2025 10:57 AM [employer] [facility] - [facility] MPV 8.5(L) 9.3 - 12.4 fL 01/21/2025 10:57 AM [employer] [facility] - [facility] [place] NEUTROPHILS 70 % 01/21/2025 10:57 AM CDT [facility] [place] LYMPHOCYTES 12 % 01/21/2025 10:57 AM CDT [facility] [place] MONOCYTES 15 % 01/21/2025 10:57 AM CDT [facility] [place] EOSINOPHILS 3 % 01/21/2025 10:57 AM [employer] [facility] - [facility] [place] BASOPHILS 1 % 01/21/2025 10:57 AM [employer] [facility] - [facility] [place] IMMATURE GRANULOCYTES 0 % 01/21/2025 10:57 AM CDT [facility] - [facility] [place] NEUTROPHIL ABSOLUTE 3.48 1.90 - 7.00 K/uL 01/21/2025 10:57 AM CDT [facility] - [facility] [place] LYMPHOCYTE ABSOLUTE 0.58(L) 0.70 - 4.50 K/uL 01/21/2025 10:57 AM CDT [facility] - [facility] [place] MONOCYTE ABSOLUTE 0.74 0.10 - 1.30 K/uL 01/21/2025 10:57 AM CDT [facility] - [facility] [place] EOSINOPHIL ABSOLUTE 0.14 0.00 - 0.70 K/uL 01/21/2025 10:57 AM CDT [facility]ATORY [facility] BASOPHILS ABSOLUTE 0.03 0.00 - 0.20 K/uL 01/21/2025 10:57 AM CDT [facility] LABORATORY SERVICES - [facility] IMMATURE GRANULOCYTES ABSOLUTE 0.02 0.00 - 0.03 K/uL 01/21/2025 10:57 AM T [facility] LABORATORY SERVICES - . [facility] Blood Venipuncture / Unknown 01/21/2025 10:06 AM CDT 01/21/2025 10:19 AM CDT us Erasmo Bang MD HEMATOLOGY ORDERABLES Final R esult [facility] LABORATORY SERVICES [facility]# [id number] [address] [place] [address] * (ABNORMAL) BASIC METABOLIC PANEL (01/21/2025 9:16 AM CDT) SODIUM 141 136 - 145 mmol/L 01/21/2025 10:11 AM T [facility]ORY [facility] - [facility] POTASSIUM 4.4 3.5 - 5.0 mmol/L 01/21/2025 10:11 AM T [facility] LABORATORY SERVICES - [facility] CHLORIDE 99 98 - 107 mmol/L 01/21/2025 10:11 AM T [facility]ORY SERVICES - [facility] CO2 29 22 - 29 mmol/L 01/21/2025 10:11 AM T [facility] - [facility] CALCIUM 8.4(L) 8.6 - 10.2 mg/dL 01/21/2025 10:11 AM CDT [facility] LABORATORY SERVICES - . [facility] BUN 56(H) 8 - 23 mg/dL 01/21/2025 10:11 AM T [facility] LABORATORY SERVICES - . [facility] CREATININE 6.05(H) 0.67 - 1.17 mg/dL 01/21/2025 10:11 AM T [facility] - [facility] Comment:The GFR result is no t clinically significant on patients <18 or >70 years of age. GLUCOSE 110(H) 74 - 99 mg/dL 01/21/2025 10:11 AM [facility] - [facility] GFR 9 mL/min/1.7 3 sq meter 01/21/2025 10:11 AM [facility] LABORATORY [facility] Comment:eGFR calculated with 2020 CKD-EPI equation. Vegetarian diet, extremely high or low muscle mass, and may affect results. Cystatin C with Glomerular Filtration Rate is a suitable alternative for these patients. ANION GAP 13 8 - 16 mmol/L 01/21/2025 10:11 AM [facility] Blood Venipuncture / Unknown 01/21/2025 9:16 AM CDT 01/21/2025 9:21 AM CDT us Jean-Pierre Cunha MD CHEMISTRY ORDERABLES Final Re sult [facility] Organization Address City/State/ZIP Co de Phone Number [facility] Just Above Cost [facility] CLIA# [id number] [address] [place] [address] from Last 3 Months Insurance [facility]
--- OUTSIDE RECORDS SUMMARY | 2025-03-31 12:12 | XMS_ITS | Clinical Summary ---
Author Organization [facility] Address [address] [place] [address] Care Team Providers Care Instructor Wastewater Treatment Plant Name Role Phone Chandler Geronimo DO Primary [...] Encounters Date Type Department Care Team Description 03/29/2025 Orders Only [address] [id number] Anika Nielsen NP Dyspnea on exertion 03/29/[address] [address] Anika Nielsen NP 03/28/2025 2:30 PM CDT Office Visit [address] [address] Anika Nielsen NP Dyspnea on exertion (Primary Dx); Anemia due to chronic kidney disease, on chronic dialysis (HCC); Pulmonary hypertension (HCC); History of recent pneumonia; Encounter for anticoagulation discussion and counseling; Paroxysmal atrial fibrillation (HCC) 03/28/[address] [address] [place] Myers MD 03/25/2025 Results Follow-Up [address] [place] [address] Corinne Walter RN Transthoracic Echo (TTE) Limited/Followup 03/24/2025 1:00 PM CDT Ancillary Procedure [address] [address] Pericardial effusion 03/22/2025 1:30 PM CDT Ancillary Procedure [address] [address] Paroxysmal atrial fibrillation (HCC) 03/16/2025 Telephone [address] [place] [address] North Myers MD LAAO 01/20/2025 1:15 PM CDT Office Visit [facility] Medical Group Cardiology [address] [place] [address] North Myers MD Paroxysmal atrial fibrillation (HCC) (Primary Dx) from Last 3 Months Medical History Medical History Date Comments Hypertension Covid-19 Social History Tobacco Use Types Packs/Day Years Used Date Smoking Tobacco: Former Cigarettes Tobacco Cessation:Counseling Given: Not Answered Sex and Gender Information Value Date Recorded Sex Assigned at Not on file Legal Sex Male 5:28 PM APPARATUS OPERATOR Gender Identity Not on file Sexual Orientation Not on file Obstetrics History Last Filed Vital Signs Vital Sign Reading Time Taken Comments Blood Pressure 128/66 03/28/2025 2:21 PM CDT Pulse 68 03/28/2025 2:21 PM CDT Temperature 36.8 C (98.2 F) 06/07/2021 3:50 PM APPARATUS OPERATOR Respiratory Rate 16 01/20/2025 1:13 PM CDT [...] PM CDT Narrative 03/24/2025 3:58 PM CDT [facility] Medical Group Cardiology [address] [facility] [address], [place] [address] [address] [facility] [address], [place] [address] P:[phone] P:[phone] Echocardiographic Report Patient Name: JAYLEEN VERONICA : 1950 Study Date: 03/24/2025 1:13:29 PM Sex: M Floor Finisher: Mildred Pinzon)([place]), [facility] Location: [place] Ref Provider: [facility] MYERS Height(Cm): 175 BSA: [...] FINDINGS: Interpretation Site: Exam was interpreted at [facility]. Left Ventricle: Normal left ventricular systolic function. [...] Procedure Note Amado Estes MD - 03/24/2025 [facility] Medical Group Cardiology [address] [facility] [address], [place] [address] [address] [facility] [address], [place] [address] P:[phone] P:[phone] Echocardiographic Report Patient Name: JAYLEEN VERONICA : 1950 Study Date: 03/24/2025 1:13:29 PM Sex: M Floor Finisher: Mildred Fischer ([place]obe)([place]), [facility] Location: [place] Ref Provider: [facility] MYERS Height(Cm): 175 BSA: [...] FINDINGS: Interpretation Site: Exam was interpreted at [facility]. Left Ventricle: Normal left ventricular systolic function. [...] Last 3 Months Insurance [employer] MEDICARE [facility] MEDICARE Address: [facility] [address] [place] [address] Care Teams Instructor Wastewater Treatment Plant Relationship Specialty Start Date End Date Chandler Geronimo DO PCP - General Family Medicine 06/07/21
--- OUTSIDE RECORDS SUMMARY | 2025-03-31 12:12 | XMS_ITS | Encounter Summary ---
Author Organization [facility] Address [address] [place] [address] Care Team Providers Care Hot Stamp Operator Name Role Phone Unavailable Primary Care Provider Unavailabl e Reason for Visit * Reason Onset Date Comments Lab Results 03/31/2025 Encounter Details Date Type Department Care Team ([facility] Contact Info) Description 03/31/[address] [facility] Oncology and Hematology - [facility] [address] [facility] [facility] [address] [place] [address] Iron Cunningham MD [address] [facility] [address] [place] [address] Lab Results Social History Tobacco Use Types Packs/Day Years Used Date Smoking Tobacco: Former Cigarettes 0.5 30 0 12/17/1987 - 12/16/2017 Smokeless Tobacco: Never Alcohol Use Standard Drinks/Week Comments Never 0 (1 standard drink = 0.6 oz pur e alcohol) Sex and Gender Information Value Date Recorded Sex Assigned at Not on file Legal Sex Male 12:30 PM CDT Gender Identity Not on file Sexual Orientation Not on file documented as of this encounter Miscellaneous Notes * Telephone Encounter - Eli Aquino - 03/31/2025 8:35 AM CDT Patient is coming in today to get a CBC and also draw a type and screen. Daughter called and stateddanielle Cota had a hemoglobin at 5.5 yesterday. We will verify the hemoglobin and then decide on blood transfusion. documented in this encounter Plan of Treatment Upcoming Encounters Date Type Department Care Team ([facility] Contact Info) Description 05/12/2025 2:15 PM BOARD DESIGN ENGINEER Office Visit [facility] Oncology and Hematology - [facility] [address] [facility] [address] [place] [address] Iron Cunningham MD [address] [facility] [address] [place] [address] documented as of this encounter Visit Diagnoses Not on filedocumented in this encounter
--- OUTSIDE RECORDS SUMMARY | 2025-03-31 12:12 | XMS_ITS | Encounter Summary ---
Author Organization [facility] Address [address] [place] [address] Care Team Providers Care Medical/Surgery Registered Nurse Name Role Phone Chandler Geronimo DO Primary Care Provide r Encounter Details Date Type Department Care Team (Late st Contact Info) Description 10/21/2022 Therapy Plan [facility] Infusion Services [id number] David Hamilton MD [address] [facility], [place] [address] Social History Tobacco Use Types Packs/Day Years [...] declined 10/10/2022 How often do you attend confucianism or christianity serv ices? Patient declined 10/10/2022 Do you belong to any clubs o r organizations such as confucianism groups, unions, fraternal or athletic groups, or [...] Recorded Patient Health Questionnaire-2 Score 0 10/21/2022 [facility] - Occupational Stress [...] place to sleep or slept in a long-term (including now)? No 10/10/2022 Sex and Gender Information Value Date Recorded Sex Assigned at Male 07/22/2024 2:00 PM SENIOR JAVA SOFTWARE DEVELOPER Legal Sex Male 2:48 PM SENIOR JAVA SOFTWARE DEVELOPER Gender Identity Not on file Sexual Orientation [...] documented as of this encounter Care Teams Medical/Surgery Registered Nurse Relationship Specialty Start Date End Date Chandler Geronimo DO [address] [place] [phone] PCP - General FAMILY PRACTICE 05/29/21 documented as of this encounter
--- OUTSIDE RECORDS SUMMARY | 2025-03-31 12:12 | XMS_ITS | Encounter Summary ---
Author Organization [facility] Address [address] [place] [address] Care Team Providers Care Odd Jobs Day Worker Name Role Phone Chandler Geronimo DO Primary Care Provide r Encounter Details Date Type Department Care Team (Late st Contact Info) Description 07/16/[address] [facility] Infusion Services [address] [id number] David Hamilton MD [address] [facility], [address] [phone] Social History Tobacco Use Types Packs/Day Years Used Date Smoking Tobacco: Never Smokeless Tobacco: Never Alcohol Use Standard Drinks/Week Comments Never 0 (1 standard drink = 0.6 oz pur e alcohol) Sex and Gender Information Value Date Recorded Sex Assigned at Male 07/22/2024 2:00 PM CAR REFINISHER Legal Sex Male 2:48 PM CAR REFINISHER Gender Identity Not on file Sexual Orientation Not on file COVID-19 Exposure Response Date Recorded In the last 10 days, have yo u been in contact with someone who was confirmed or suspected to have Coronavirus/COVID-19? No / Unsure 07/16/2021 3:48 PM CAR REFINISHER documented as of this encounter Functional Status * RETIRED Are you deaf or do you have serious difficulty hearing Answer Date of Assessment Author Status No 06/13/2021 2:44 AM CAR REFINISHER Activ e * RETIRED Are you blind or do you have serious difficulty seeing, even when wearing glasses? Answer Date of Assessment Author Status No 06/13/2021 2:44 AM CAR REFINISHER Activ e * Do you have serious [...] chronic kidney disease, not on chronic dialysis ([facility])- Primary documented in this encounter Care Teams Odd Jobs Day Worker Relationship Specialty Start Date End Date Chandler Geronimo DO [address] [place] [phone] PCP - General FAMILY PRACTICE 05/29/21 documented as of this encounter
--- OUTSIDE RECORDS SUMMARY | 2025-03-31 12:13 | XMS_ITS | Clinical Summary ---
Author Organization [email or web address] Address [address] [place] [address] Care Team Providers Care Director Sales Training Name Role Phone Unavailable Primary Care Provider Unavailabl e Source Comments [email or web address],non-owned Affiliates and Associated Physician Practices is amultiple site organization consisting of ambulatory clinics and hospital sitesin [place], [place], [place] and [place]. This disclosure is being madepursuant to the Care Everywhere program and may not contain all information available regarding this patient. Last updated 18.[email or web address] Allergies No known active allergies Medications * [...] on file Legal Sex Male 11:54 AM REGIONAL MARKETING MANAGER Gender Identity Not on file Sexual Orientation Not on file Last Filed Vital Signs Vital Sign Reading Time Taken Comments Blood Pressure 113/89 06/17/2011 5:40 PM REGIONAL MARKETING MANAGER Pulse 67 06/17/2011 9:53 PM REGIONAL MARKETING MANAGER Temperature 36.3 C (97.3 F) 06/17/2011 5:40 PM REGIONAL MARKETING MANAGER Respiratory Rate 16 06/17/2011 5:40 PM REGIONAL MARKETING MANAGER Oxygen Saturation 95% 06/17/2011 9:53 PM REGIONAL MARKETING MANAGER Inhaled Oxygen Concentration - - Weight 91.6 kg (202 lb) 06/17/2011 5:40 PM REGIONAL MARKETING MANAGER Height 177.8 cm (5' 10) 06/17/2011 5:40 PM REGIONAL MARKETING MANAGER Body Mass Index 28.98 06/17/2011 5:40 PM REGIONAL MARKETING MANAGER Plan of Treatment Health Maintenance Due Date [...] of Phone Billing Address Personal/Family Self 1950 [phone] (Work) [address] [place] [address] A[employer]NA MEDICARE ADV MEDICAID [place] Advance Directives * FULL RESUSCITATION (Latest Code Status on File) Date Activated Date Inactivated Comments 11/20/2010 1:48 PM 11/21/2010 5:57 AM
--- OUTSIDE RECORDS SUMMARY | 2025-03-31 12:13 | XMS_ITS | Encounter Summary ---
Author Organization [facility] Address [address] [place] [address] Care Team Providers Care Double End Trimmer Name Role Phone Chandler Geronimo DO Primary Care Provide r Encounter Details Date Type Department Care Team (Late st Contact Info) Description 01/10/2022 Therapy Plan [facility] Infusion Services [place] [id number] David Hamilton MD [address] [facility], [address] [address] Social History Tobacco Use Types Packs/Day Years [...] Sex Assigned at Male 07/22/2024 2:00 PM SHOE HANDLER Legal Sex Male 2:48 PM SHOE HANDLER Gender Identity Not on file Sexual Orientation [...] Assessment Author Status No 06/13/2021 2:44 AM SHOE HANDLER Activ e * RETIRED Are you blind or do you have serious difficulty seeing, even when wearing glasses? Answer Date of Assessment Author Status No 06/13/2021 2:44 AM SHOE HANDLER Activ e * Do you have serious [...] documented as of this encounter Care Teams Double End Trimmer Relationship Specialty Start Date End Date Chandler Geronimo DO [address] [place] [phone] PCP - General FAMILY PRACTICE 05/29/21 documented as of this encounter
--- OUTSIDE RECORDS SUMMARY | 2025-03-31 12:13 | XMS_ITS | Encounter Summary ---
Author Organization [facility] Address [address] [place] [address] Care Team Providers Care Customer Service Attendant Name Role Phone Chandler Geronimo DO Primary Care Provide r Reason for Referral * Surgical (Routine) - New Request Specialty Diagnoses / Procedures Referred By Hazel t Referred To Contact Diagnoses ESRD (end stage renal disease) on dialysis ([facility]) Procedures Case request operating room: BRACHIAL CEPHALIC ARTERIOVENOUS FISTULA OR TRANSPOSITION BASILIC VEIN (LEFT ARM) Layton Herrera MD [facility]. [facility] [address] [place] [address] Phone: tel: fax: Referral ID Status Reason Start Date Expiration Date V isits Requested Visits Authorized [id number] New Request 06/01/2024 06/01/2025 1 1 RATOR ASSEMBLER Encounter Details Date Type Department Care Team (Late st Contact Info) Description 06/01/2024 Prep for Procedure [facility] [address] [place] [address] Layton Herrera MD [facility]. [facility] [address] [place] [address] Social History Tobacco Use Types Packs/Day Years Used Date Smoking Tobacco: Never Smokeless Tobacco: Never Alcohol Use Standard Drinks/Week Comments Never 0 (1 standard drink = 0.6 oz pur e alcohol) [facility] Utilities Answer Date Recorded In the past [...] How often do you attend uatsdin or yazidism serv ices? Patient declined 10/10/2022 Do you [...] Recorded Patient Health Questionnaire-2 Score 0 01/05/2024 [facility] of Occupat ional Health - Occupational Stress [...] place to sleep or slept in a fpc (including now)? No 10/10/2022 Housing Stability Vital [...] were you homeless or living in a fpc (including now)? 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 Author Patient will return to prior living situation and remain independent in ADLs upon discharge from hospital General Aline Russell, RN Health - patient able to perform ADLs independently Lifestyle No El Vaughn, ruling technician - family caregiver with be involved in care transitions and discharge planning Lifestyle No Abby Eng RN documented as of this encounter Visit Diagnoses Diagnosis ESRD (end stage renal disease) on dialysis ([facility])- Primary End stage renal disease documented in this encounter Additional Health Concerns Assessment Noted Time PHQ-9 Depression Total Score: 0 03/14/20 22 3:10 PM CDT documented as of this encounter Care Teams Customer Service Attendant Relationship Specialty Start Date End Date Chandler Geronimo DO [address] [place] [phone] PCP - General FAMILY PRACTICE 05/29/21 documented as of this encounter
--- OUTSIDE RECORDS SUMMARY | 2025-03-31 12:13 | XMS_ITS | Encounter Summary ---
Author Organization [facility] Address [address] [place] [address] Care Team Providers Care Spray Cementer Name Role Phone Chandler Geronimo DO Primary Care Prov ider Encounter Details Date Type Department Care Team (Late st Contact Info) Description 03/29/2025 Orders Only [facility] Medical Group Cardiology [address] [place] [phone] Anika Nielsen NP [address] [place] [address] Dyspnea on exertion Social History Tobacco Use Types Packs/Day Years Used Date Smoking Tobacco: Former Cigarettes Sex and Gender Information Value Date Recorded Sex Assigned at Not on file Legal Sex Male 5:28 PM FOOD SERVICE REPRESENTATIVE Gender Identity Not on file Sexual Orientation Not on file documented as of this encounter Plan of Treatment Not on file documented as of this encounter Visit Diagnoses Diagnosis Dyspnea on exertion Other dyspnea and respiratory abnormality documented in this encounter Orders Imaging Orders Without Results Count Last Order ed Date First Ordered Date XR CHEST PA LATERAL 2 VIEWS 1 03/29/2025 documented in this encounter Care Teams Spray Cementer Relationship Specialty Start Date End Date Chandler Geronimo DO PCP - General Family Medicine 06/07/21 documented as of this encounter
== END 2025-03-31 11:03 | disposition home or self-care (01) ==
LOC: ANHLAB 11:03
PROVIDERS: PCP Family Medicine; Visit Provider Internal Medicine Hematology & Oncology
DX: D64.9 Anemia, unspecified (principal)
CPT/HCPCS: 36415; 85025

== ENCOUNTER 2025-04-14 15:34 | Outpatient (CLI) | payer MEDICARE, MEDICAID, SELFPAY ==
--- OUTSIDE RECORDS SUMMARY | 2025-04-14 15:37 | XMS_ITS | Encounter Summary ---
Author Organization [facility] Address [address] [place] [address] Care Team Providers Care Registered Nurse Step Down Name Role Phone Chandler Geronimo DO Primary Care Provide r Encounter Details Date Type Department Care Team (Late st Contact Info) Description 07/28/2024 WeLink Message Enc [facility] Medical Group Nephrology Specialty Clinic [address] [phone] [place], [facility] Provider Orders Social History Tobacco Use Types Packs/Day Years Used Date Smoking Tobacco: Never Smokeless Tobacco: Never Alcohol Use Standard Drinks/Week Comments Never 0 (1 standard drink = 0.6 oz pur e alcohol) [facility] Utilities Answer Date Recorded In the past 12 months has [facility] itzat, oil, or water [employer] threatened to shut off services in your [...] How often do you attend sikhism or mormonism serv ices? Patient declined 10/10/2022 Do you [...] Recorded Patient Health Questionnaire-2 Score 0 07/26/2024 [facility] of Occupat ional Health - Occupational [...] any time in the past 12 m [facility], were you homeless or living in a skilled nursing (including now)? 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
--- OUTSIDE RECORDS SUMMARY | 2025-04-14 15:37 | XMS_ITS | Clinical Summary ---
Author Organization [facility] Address [address] [place] [address] Care Team Providers Care Oral And Maxillofacial Surgeon Name Role Phone Chandler Geronimo DO Primary [...] mg total) by mouth daily. Active epoetin rosetet-epbx (RETACRIT) 46015 Units/mL injectionIndications:E nd Stage Renal Disease on [...] tabletIndications:ESRD (end stage renal disease) on dialysis ([facility]HS/[facility]) Take 3 tablets (120 mg total) by mouth 2 (two) times a day, 3 (three) days a week. Take 3 tablets (120 mg total) two times a day on non-dialysis days (Friday, Friday, and Friday) 96 tablet 025 Active B smrztvd-U-cdvfw acid 0.8 mg (DIALYVITE/NEPHRO-ROMINA ) Tab tabletIndications:End stage renal disease ([facility]) Take 1 tablet by mouth daily. [...] stage 5, GFR less than 15 ml/min ([facility] HHS/HCC),Secondary hyperparathyroidism (HHS/HCC),Primary hypertension,Hyperkale abbie Take 1 tablet (4 mg total) by mouth nightly at bedtime. 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 Edema, unspecified type 06/28/2021 Acute kidney injury 05/29/2021 Resolved Problems Problem Noted Date Diagnosed Date Resolved Date Pneumonia 06/13/2021 06/19/2021 Encounters Date Type Department Care Team Description 03/28/2025 Orders Only [facility] Infusion Services at [facility] [address] [facility], [place] [id number] Non-Staff, Provider from Last 3 Months Immunizations Immunization Administration Dates Next Due Influenza (Generic) 05/03/2024,02/18/2014 Influenza Adult (Generic) 04/17/2023,04/05/2021 PFIZER COVID-19 (ORIGINAL FO RMULATION, PURPLE CAP) mRNA, LNP-S, PF, 30 MCG/0.3 ML DOSE 12/22/2021,10/04/2020 Pneumococcal (Pneumovax 23) 02/19/2024, 4,06/20/2013 Pneumococcal (Prevnar 13) 11/26/2017 Pneumococcal (Prevnar 20) 05/03/2024 Tdap (Generic) 08/27/2016,02/25/2016 Zoster (Zostavax) [address] Unt/0.65Ml 02/25/2016 Family History Medical History Relation [...] = 0.6 oz pur e alcohol) [facility] Utilities Answer Date Recorded In the past 12 months has e [place], gas, oil, or water [employer] threatened to shut off services in your [...] declined 10/10/2022 How often do you attend hinduism or worship serv ices? Patient declined 10/10/2022 Do you belong to any clubs o r organizations such as hinduism groups, unions, fraternal or athletic groups, or [...] Recorded Patient Health Questionnaire-2 Score 0 07/26/2024 [facility] of Occupat ional Health - Occupational [...] place to sleep or slept in a assisted (including now)? No 10/10/2022 Housing Stability Vital [...] time in the past 12 m [facility], were you homeless or living in a assisted (including now)? 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 Not on file [...] (10 Years) Discontinued 05/29/2024, 05/28/2024 PHQ-2 (Physician [place]) Completed 07/26/2024 Colorectal Cancer Screening FIT/FOBT (1 [...] remain independent in ADLs upon discharge from [facility] General Aline Russell, RN Health - patient able to perform ADLs independently Lifestyle No El Vaughn railcar brake operator - family caregiver with be involved in care transitions and discharge planning Lifestyle No Abby Eng RN Procedures Procedure Name Priority Date/Time Associated Diagnosis Comments OCCULT BLOOD, FECES Routine 08/28/2024 1 1:48 AM CDT HEMOGLOBIN, GLYCOSYLATED Routine 08/25/2024 6:44 AM CDT COLONOSCOPY Routine 05/28/2024 12:12 PM HOSPITAL WELLNESS COORDINATOR LIPID PANEL Routine 10/12/2022 7:06 AM CDT HEPATITIS PANEL,ACUTE Routine 05/30/2021 1:20 PM HOSPITAL WELLNESS COORDINATOR from Last 3 Months or Most Recently Relevant to Health Maintenance Results * (ABNORMAL) OCCULT BLOOD, FECES (08/28/2024 11:48 AM CDT) OCCULT BLOOD FECAL POSITIVE(A ) NEGATIVE 08/28/2024 12:[address] [facility] STOOL SPECIMEN / Unknown 08/28/2024 11:48 AM CDT David Hamilton MD BODY FLUIDS AND STOOLS ORDERAB LES Final Result [facility] [address] [place] [address], [place] [phone] * (ABNORMAL) HEMOGLOBIN, GLYCOSYLATED (08/25/2024 6:44 AM CDT) [facility] HGB A1C 5.9(H) <5.7 % 08/25/2024 9:[address] [facility] Comment: ADA GUIDELINES 2010 5.7 TO 6.4% INCREASED RISK OF DIABETES > OR = 6.5% CONSISTENT WITH DIABETES ESTIMATED AVG GLUCOSE 123 mg/dL 08/25/2024 9:[address] [facility] 08/25/2024 6:44 AM CDT Joann Sherman NP LABORATORY Final Result [facility] [address] [place] [address], [place] [phone] * (ABNORMAL) LIPID PANEL (10/12/2022 7:06 AM CDT) [facility] CHOLESTEROL 110 <200 MG/DL 10/12/2022 8:[address] [facility] TRIGLYCERIDES 134 <150 MG/DL 10/12/2022 8:[address] [facility] HDL 35(L) >40.0 MG/DL 10/12/2022 8:[address] [facility] LDL (CALCULATED) 48 <100 MG/DL 10/13/19 8:[address] [facility] NON HDL CHOLESTEROL 75 <130 MG/DL 10/12 8:[address] [facility] CHOL/HDL RATIO 3.1 0.0 - 4.5 10/12/2022 8:[address] [facility] VLDL CALCULATION 27 5 - 55 MG/DL 10/12/2022 8:[address] [facility] LIPID INTERPRETATION 10/12/2022 8:[address] [facility] Comment: NIH CONCENSUS REPORT RECOMMENDATIONS: ADULT CHILD LOW RISK: CHOLESTEROL <200 <170 TRIGLYCERIDE <150 --- HDL >=60 --- LDL <100 <110 BORDERLINE: CHOLESTEROL 200-239 170-199 TRIGLYCERIDE 150-199 --- HDL 40-59 --- LDL 100-159 110-129 HIGH RISK: CHOLESTEROL >=240 >=200 TRIGLYCERIDE >=200 --- HDL <40 --- LDL >=160 >=130 10/12/2022 7:06 AM CDT us Josseline Tabares MD LABORATORY Final Result [facility] [address] [place] [address], * HEPATITIS PANEL,ACUTE (05/30/2021 1:20 PM HOSPITAL WELLNESS COORDINATOR) HEPATITIS B SURFACE AG NON-REACTI VE NON-REACTI VE 05/30/2021 3:16 PM HOSPITAL WELLNESS COORDINATOR [facility] HEP B CORE IGM NON-REACTI VE NON-REACTI VE 05/30/2021 3:16 PM HOSPITAL WELLNESS COORDINATOR [facility] HAV IGM NON-REACTI VE NON-REACTI VE 05/30/2021 3:16 PM HOSPITAL WELLNESS COORDINATOR [facility] HEPATITIS C AB NON-REACTI VE NON-REACTI VE 05/30/2021 3:16 PM HOSPITAL WELLNESS COORDINATOR [facility] 05/30/2021 1:20 PM HOSPITAL WELLNESS COORDINATOR us David Hamilton MD LABORATORY Final Result [facility] [address] [place] [address], [place] [phone] from Last 3 Months or Most Recently [...] 11:22 PM 06/03/2021 3:03 PM Care Teams Oral And Maxillofacial Surgeon Relationship Specialty Start Date End Date Chandler Geronimo DO [address] [place] [phone] PCP - General FAMILY PRACTICE 05/29/21
--- OUTSIDE RECORDS SUMMARY | 2025-04-14 15:37 | XMS_ITS | Encounter Summary ---
Author Organization [facility] Address [address] [place] [address] Care Team Providers Care Shooter Helper Name Role Phone Chandler Geronimo DO Primary Care Provide r Encounter Details Date Type Department Care Team (Late st Contact Info) Description 09/01/2024 MyChart Message Enc [facility] Medical Group Multispecialty Care - [facility] [address] [facility], [facility] [address] [place] [address] David Hamilton MD [address] [facility], [facility] [address] [place] [address] question Social History Tobacco Use [...] How often do you attend uatsdin or christian serv ices? 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
--- OUTSIDE RECORDS SUMMARY | 2025-04-14 15:38 | XMS_ITS | Clinical Summary ---
Author Organization [facility] Address [address] [facility] [place] [address] Care Team Providers Care Lubrication Supervisor Name Role Phone Unavailable Primary Care Provider Unavailabl e Source Comments [facility],non-owned Affiliates and Associated Physician Practices is amultiple site organization consisting of ambulatory clinics and hospital sitesin [place], [place], [place] and [place]. This disclosure is being madepursuant to the Care Everywhere program and may not contain all information available regarding this patient. Last updated 18.[facility] Allergies No known active allergies Medications * [...] on file Legal Sex Male 11:54 AM PLASTERER MAINTENANCE Gender Identity Not on file Sexual Orientation Not on file Last Filed Vital Signs Vital Sign Reading Time Taken Comments Blood Pressure 113/89 06/17/2011 5:40 PM PLASTERER MAINTENANCE Pulse 67 06/17/2011 9:53 PM PLASTERER MAINTENANCE Temperature 36.3 C (97.3 F) 06/17/2011 5:40 PM PLASTERER MAINTENANCE Respiratory Rate 16 06/17/2011 5:40 PM PLASTERER MAINTENANCE Oxygen Saturation 95% 06/17/2011 9:53 PM PLASTERER MAINTENANCE Inhaled Oxygen Concentration - - Weight 91.6 kg (202 lb) 06/17/2011 5:40 PM PLASTERER MAINTENANCE Height 177.8 cm (5' 10) 06/17/2011 5:40 PM PLASTERER MAINTENANCE Body Mass Index 28.98 06/17/2011 5:40 PM PLASTERER MAINTENANCE Plan of Treatment Health Maintenance Due Date [...] of Phone Billing Address Personal/Family Self 1950 [phone] X122 (Work) [address] [place] [address] [employer]NA MEDICARE [place]V MEDICAID [place] Advance Directives * FULL RESUSCITATION (Latest Code Status on File) Date Activated Date Inactivated Comments 11/20/2010 1:48 PM 11/21/2010 5:57 AM
--- OUTSIDE RECORDS SUMMARY | 2025-04-14 15:38 | XMS_ITS | Clinical Summary ---
Author Organization [facility] Address [address] [place] [address] Care Team Providers Care Palliative Medicine Physician Name Role Phone Chandler Geronimo DO Primary [...] Active Problems Problem Noted Date Diagnosed Date Contraindication to anticoagulation therapy 07/2024 Paroxysmal atrial fibrillation 01/20/2025 COVID-19 06/07/2021 Encounters Date Type Department Care Team Description 04/11/2025 3:00 PM CARTRIDGE MAKER Office Visit [facility] [address] [place] [address] [place] [phone] Austin Myers MD Iron deficiency anemia due to chronic blood loss (Primary Dx) 04/04/2025 Orders Only [facility] [address] [place] [id number] Austin Myers MD Paroxysmal atrial fibrillation (HCC) (Primary Dx); Contraindication to anticoagulation therapy 04/01/2025 Orders Only [facility] [address] [place] [id number] Austin Myers MD Paroxysmal atrial fibrillation (HCC) (Primary Dx); Preop cardiovascular exam 03/29/2025 Orders Only [facility] [address] [place] [address] [place] [phone] Anika Nielsen NP Dyspnea on exertion 03/29/2025 Telephone [facility] [address] [place] [address] [place] [phone] Anika Nielsen NP 03/28/2025 2:30 PM CDT Office Visit [facility] [address] [place] [address] [place] [phone] Anika Nielsen NP Dyspnea on exertion (Primary Dx); Anemia due to chronic kidney disease, on chronic dialysis (HCC); Pulmonary hypertension (HCC); History of recent pneumonia; Encounter for anticoagulation discussion and counseling; Paroxysmal atrial fibrillation (HCC) 03/28/2025 Telephone [facility] [address] [place] [address] [place] [phone] Austin Myers MD 03/25/2025 Results Follow-Up [facility] [address] [place] [address] [place] [phone] Corinne Walter RN Transthoracic Echo (TTE) Limited/Followup 03/24/2025 1:00 PM CDT Ancillary Procedure [facility] [address] [place] [address] [place] [phone] Pericardial effusion 03/22/2025 1:30 PM CDT Ancillary Procedure [facility] [address] [place] [address] [place] [phone] Paroxysmal atrial fibrillation (HCC) 03/16/2025 Telephone [facility] [address] [place] [address] [place] [phone] Austin Myers MD LAAO 01/20/2025 1:15 PM CDT Office Visit [facility] [address] [place] [address] [place] [phone] Austin Myers MD Paroxysmal atrial fibrillation (HCC) (Primary Dx) from Last 3 Months Medical History Medical History Date Comments Hypertension Covid-19 Social History Tobacco Use Types Packs/Day Years Used Date Smoking Tobacco: Former Cigarettes Tobacco Cessation:Counseling Given: Not Answered Sex and Gender Information Value Date Recorded Sex Assigned at Not on file Legal Sex Male 5:28 PM CARTRIDGE MAKER Gender Identity Not on file Sexual Orientation Not on file Last Filed Vital Signs Vital Sign Reading Time Taken Comments Blood Pressure 140/60 04/11/2025 2:59 PM CARTRIDGE MAKER Pulse 67 04/11/2025 2:59 PM CARTRIDGE MAKER Temperature 36.8 C (98.2 F) 06/07/2021 3:50 PM CARTRIDGE MAKER Respiratory Rate 16 01/20/2025 1:13 PM CDT Oxygen Saturation 99% 04/11/2025 2:59 PM CARTRIDGE MAKER Inhaled Oxygen Concentration - - Weight 80.7 kg (178 lb) 04/11/2025 2:59 PM CARTRIDGE MAKER Height 175.3 cm (5' 9) 04/11/2025 2:59 PM CARTRIDGE MAKER Body Mass Index 26.29 04/11/2025 2:59 PM CARTRIDGE MAKER Plan of Treatment Upcoming Encounters Date Type Department Care Team (Late st Contact Info) Description 04/05/2025 11:59 PM CARTRIDGE MAKER Anesthesia Event [facility] [address] [place] [address] [place] [address] [facility] [address] [place] [address] Health Maintenance Due Date Last Done Comments [...] Routine 03/24/2025 1:44 PM CDT Pericardial effusion EXTENDED/SHELTER HOLTER PATCH (>48 HOURS UP TO 7 DAYS) Routine 03/22/2025 1:35 PM CDT Paroxysmal atrial fibrillation (HCC) from Last 3 Months Results * TRANSTHORACIC ECHO (TTE) LIMITED/FOLLOW UP W LTD DOPPLER/CF WO CONTRAST (03/24/2025 1:44 PM CDT) Estimated EF 60-65 % CONS SCIMAGE EF Mod BP 58 % CONS SCIMAGE Anatomical Region Laterality Modality Ultrasound 03/24/2025 1:13 PM CDT Narrative 03/24/2025 3:58 PM CDT [facility] [address], [place] [address] [address], [place] [address] P:[phone] P:[phone] Echocardiographic Report Patient Name: JAYLEEN VERONICA : 1950 Study Date: 03/24/2025 1:13:29 PM Sex: M Choke Setter: Mildred Fischer (Robe)(CT), [facility] Location: [facility] Provider: AUSTIN MYERS Height(Cm): 175 BSA: 1.96 Weight(Kg): 79.4 Heart Rate: 66 BP: 118 / 48 Quality: Good Order Provider: AUSTIN MYERS PROCEDURES: Echocardiographic Report: Limited Transthoracic Echocardiogram [...] FINDINGS: Interpretation Site: Exam was interpreted at [facility] [place]. Left Ventricle: Normal left ventricular systolic function. [...] Procedure Note Amado Estes MD - 03/24/2025 [facility] [address] [facility] [address], [place] [address] [address] [facility] [id number], [place] [address] P:[phone] P:[phone] Echocardiographic Report Patient Name: JAYLEEN VERONICA : 1950 Study Date: 03/24/2025 1:13:29 PM Sex: M Choke Setter: Mildred Fischer (Robe)(CT), [facility] Location: [place] Ref Provider: AUSTIN MYERS Height(Cm): 175 BSA: 1.96 Weight(Kg): 79.4 Heart Rate: 66 BP: 118 / 48 Quality: Good Order Provider: AUSTIN MYERS PROCEDURES: Echocardiographic Report: Limited Transthoracic Echocardiogram [...] FINDINGS: Interpretation Site: Exam was interpreted at [facility] [place] Left Ventricle: Normal left ventricular systolic function. [...] Amado Estes MD 03/24/2025 3:57:49 PM CDT Austin Myers MD CV ECHO PROCEDURES Final Result * Extended/Fci Holter Patch (>48 hours up to 7 days) (03/22/2025 1:35 PM CDT) Anatomical Region Laterality Modality Electrocardiogra phy Narrative 04/05/2025 11:07 AM CARTRIDGE MAKER AMBULATORY RELIEF OPERATOR REPORT Patient Name: Jayleen Gamez Date of : 1950 Requesting Physician: Dr. Myers Date of interpretation: 04/05/25 Type of monitor : Holter Date of the study/Enrollment period: 03/22/2025 - 03/28/2025 Indication: Paroxysmal atrial fibrillation Quality of the study: Favorable Interpretation: The predominant rhythm is sinus with the ventricular rates ranging from 50 beats per minute to 103 beats per minute. There were rare episodes of supraventricular tachycardia lasting 3 beats at ventricular rates of 120s. There were no atrial fibrillation detected in this study. Ventricular ectopy burden less than 1%. Supraventricular ectopy burden less than 1%. Austin Myers MD 04/05/25 Voice recognition software was used to complete this document, therefore, flush tester variances may occur. Procedure Note Austin Myers MD - 04/05/2025 AMBULATORY RELIEF OPERATOR REPORT Patient Name: Jayleen Gamez Date of : 1950 Requesting Physician: Dr. Myers Date of interpretation: 04/05/25 Type of monitor : Holter Date of the study/Enrollment period: 03/22/2025 - 03/28/2025 Indication: Paroxysmal atrial fibrillation Quality of the study: Favorable Interpretation: The predominant rhythm is sinus with the ventricular rates ranging from 50beats per minute to 103 beats per minute. There were rare episodes of supraventricular tachycardia lasting 3 beatsat ventricular rates of 120s. There were no atrial fibrillation detected in this study. Ventricularectopy burden less than 1%. Supraventricular ectopy burden less than1%. Austin Myers MD 04/05/25 Voice recognition software was used to complete this document, therefore,flush tester variances may occur. Austin Myers MD CV CARDIAC SERVICES PROCEDURES F inal Result from Last 3 Months Insurance [employer] MEDICARE GOLD Care Teams Palliative Medicine Physician Relationship Specialty Start Date End Date Chandler Geronimo DO PCP - General Family Medicine 06/07/21
--- OUTSIDE RECORDS SUMMARY | 2025-04-14 15:38 | XMS_ITS | Encounter Summary ---
Author Organization [facility] Healthcare Address [address] [place] [address] Care Team Providers Care Methods Specialist Name Role Phone BrauliozebCarleen Kotharirick Yanni ALEX Primary Care Prov ider Encounter Details Date Type Department Care Team (Late st Contact Info) Description 09/08/2024 Orders Only [facility] Health Information Management [address] [place] [address] Scanning, Provider Social History Tobacco Use Types Packs/Day Years Used Date Smoking Tobacco: Never Assessed Sex and Gender Information Value Date Recorded Sex Assigned at Not on file Legal Sex Male 5:28 PM MAINTENANCE MECHANIC TELEPHONE Gender Identity Not on file Sexual Orientation Not on file documented as of this encounter Plan of Treatment Upcoming Encounters Date Type Department Care Team (Late st Contact Info) Description 04/05/2025 11:59 PM MAINTENANCE MECHANIC TELEPHONE Anesthesia Event [facility] Cardiac Catheterization Lab [address] [place] [address] [place] [address] [address] documented as of this encounter Procedures Procedure Name Priority Date/Time Associated Diagnosis Comments CARDIOLOGY DOCUMENT SCAN 09/08/2024 9:28 PM CDT documented in this encounter Results * Cardiology Document Scan (09/08/2024 9:28 PM CDT) Anatomical Region Laterality Modality Other us Provider Scanning CV CARDIAC SERVICES PROCEDURES Final Result documented in this encounter Visit Diagnoses Not on filedocumented in this encounter Care Teams Methods Specialist Relationship Specialty Start Date End Date Chandler Geronimo DO PCP - General Family Medicine 06/07/21 documented as of this encounter
--- OUTSIDE RECORDS SUMMARY | 2025-04-14 15:38 | XMS_ITS | Encounter Summary ---
Author Organization [facility] Address [address] [place] [address] Care Team Providers Care Choral Teacher Name Role Phone Chandler Geronimo DO Primary Care Provide r Reason for Referral * Surgical (Routine) - New Request Specialty Diagnoses / Procedures Referred By Hazel t Referred To Contact Diagnoses ESRD (end stage renal disease) on dialysis ([facility]) Procedures Case request operating room: BRACHIAL CEPHALIC ARTERIOVENOUS FISTULA OR TRANSPOSITION BASILIC VEIN (LEFT ARM) Layton Herrera MD [facility]. [facility] [address] [place] [address] Phone: tel: fax: Referral ID Status Reason Start Date Expiration Date V isits Requested Visits Authorized [id number] New Request 06/01/2024 06/01/2025 1 1 ER WASTE DISPOSAL LEAKAGE Encounter Details Date Type Department Care Team (Late st Contact Info) Description 06/01/2024 Prep for Procedure [facility] [address] [place] [address] Layton Herrera MD [facility]. [facility] [address] [place] [address] Social History Tobacco Use Types Packs/Day Years Used Date Smoking Tobacco: Never Smokeless Tobacco: Never Alcohol Use Standard Drinks/Week Comments Never 0 (1 standard drink = 0.6 oz pur e alcohol) [facility] Utilities Answer Date Recorded In the [...] declined 10/10/2022 How often do you attend restoration or catholic serv ices? Patient declined 10/10/2022 Do you belong to any clubs o r organizations such as restoration groups, unions, fraternal or athletic groups, or [...] Recorded Patient Health Questionnaire-2 Score 0 01/05/2024 [facility] of Occupat ional Health - Occupational Stress [...] any time in the past 12 m [facility], were you homeless or living in a alf (including now)? 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 Author Patient will return to prior living situation and remain independent in ADLs upon discharge from hospital General Aline Russell, RN Health - patient able to perform ADLs independently Lifestyle No El Vaughn, letterpress setter - family caregiver with be involved in care transitions and discharge planning Lifestyle No Abby Eng RN documented as of this encounter Visit Diagnoses Diagnosis ESRD (end stage renal disease) on dialysis ([facility])- Primary End stage renal disease documented in this encounter Additional Health Concerns Assessment Noted Time PHQ-9 Depression Total Score: 0 03/14/20 22 3:10 PM CDT documented as of this encounter Care Teams Choral Teacher Relationship Specialty Start Date End Date Chandler Geronimo DO [address] [place] [phone] PCP - General FAMILY PRACTICE 05/29/21 documented as of this encounter
--- OUTSIDE RECORDS SUMMARY | 2025-04-14 15:38 | XMS_ITS | Clinical Summary ---
Author Organization [facility] Wong Holliday Address [address] [place] [address] Care Team Providers Care Nail Setter Name Role Phone Unavailable Primary Care Provider [...] Encounters Date Type Department Care Team Description 04/12/2025 Telephone [facility] Oncology and Hematology [place] [phone] [place] [phone] Iron Cunningham MD Lab questions 04/01/2025 Orders Only [facility] [address] [place] [address] Iron Cunningham MD 03/31/2025 Telephone [facility] [address] [place] [address] Iron Cunningham MD Lab Results 03/23/2025 External Device Data STL ABSTRACTION Provider, Abstract 03/22/2025 External Device Data STL ABSTRACTION Provider, Abstract 03/08/2025 External Device Data STL ABSTRACTION Provider, Abstract 02/15/2025 1:15 PM CDT Office Visit [facility] Hemat[facility] [place] [address] [address] [place] [phone] Iron Cunningham MD Chronic anemia (Primary Dx) 02/15/2025 External Device Data STL ABSTRACTION Provider, Abstract 02/15/2025 External Device Data STL ABSTRACTION Provider, Abstract 02/01/2025 External Device Data STL ABSTRACTION Provider, Abstract 01/24/2025 Telephone [facility] Radiology [phone] [place] [address] Ty Gloria, LEAD DEVELOPER Follow Up 01/21/2025 12:03 PM CDT Anesthesia Event [facility] Interventional Radiology S [facility] [address] [place] [address] Vincent Ríos DO 01/21/2025 8:58 AM CDT - 01/21/2025 1:51 PM CDT Hospital Encounter [facility] Prepost Imaging [facility] [address] [place] [address] Iron Cunningham MD 4, St[facility] Prepost [facility] Ir Chronic anemia Discharge Disposition: Home or Self Care 01/18/2025 External Device Data STL ABSTRACTION Provider, Abstract 01/18/2025 External Device Data STL ABSTRACTION Provider, Abstract from Last 3 Months Family History Medical [...] st Contact Info) Description 05/12/2025 2:15 PM DISTRIBUTION SPEC Office Visit [facility] Hematology - [facility] [address] [facility] [address] [place] [address] Iron Cunningham MD [address] [facility] [address] [place] [address] Health Maintenance Due Date Last [...] 02/19/2024, 11/26/2017, Additional history exists Medicare Advantage ([place]) Preventative Visit/Annual Wellness Visit Completed 02/03/2025, 02/03/2025 Procedures Procedure Name Priority Date/Time Associated Diagnosis Comments CBC WITH AUTODIFFERENTIAL Routine 03/31/2025 11:47 AM CDT BONE MARROW ASPIRATION & BIOPSY Pathology 01/21/2025 12:17 PM CDT IR BIOPSY BONE MARROW Routine 01/21/2025 12:09 PM CDT Chronic anemia DIFFERENTIAL, MANUAL Stat 01/21/2025 10:06 AM CDT CBC WITH DIFFERENTIAL Stat 01/21/2025 10:06 AM CDT BASIC METABOLIC PANEL Routine 01/21/2025 9:16 AM CDT from Last 3 Months Results * CBC WITH AUTODIFFERENTIAL (03/31/2025 11:47 AM CDT) Blood us Iron Cunningham MD HEMATOLOGY ORDERABLES Final Res ult * BONE MARROW ASPIRATION & BIOPSY (01/21/2025 12:17 PM CDT) CASE REPORT Bone Marrow Pathology Report Case: [id number] Authorizing Provider: Jayson Henriquez MD Collected: 01/21/2025 12:17 PM Ordering Location: [facility] Interventional Received: 01/21/2025 01:51 PM Radiology S [facility] Pathologist: Mayra Moser MD Specimens: A) - Bone marrow, Core, left iliac B) - Bone marrow, Clot, left iliac C) - Bone marrow, left iliac D) - Peripheral Blood Smear E) - Bone marrow, left iliac 9:33 AM CDT [facility] ADDENDUM 1 This addendum is issued [...] macrocytic anemia is suggested. 9:33 AM CDT [facility] Addendum electronically signed by Mayra Moser MD [...] or increased/monoclonal plasma cell population 9:33 AM T [facility] at 1833 CDT DIAGNOSIS COMMENT The [...] be reported in an addendum 9:[address] [facility] GROSS DESCRIPTION The specimen is received in [...] studies and MDS/CMML NGS analysis 9:[address] [facility] MICROSCOPIC DESCRIPTION The slides are labeled [id number] and Bulmaro Chavez. PERIPHERAL BLOOD SMEAR Review [...] rare scattered B cells. 5 9:[address] [facility] CLINICAL INFORMATION No Dx found. 5 9:[address] [facility] IMMUNOPHENOTYPIC ANALYSIS Flow cytometric analysis from the [...] cytometry analysis (27 markers) is performed by [email or web address], [place], [place]. To view the report, click the link below. 09/02/202 5 9:33 AM CDT [facility] BM SMEARS AND/OR BIOPSIES 9:[address] [facility] COMMENT Special stain, immunohistochemical, and/or in situ hybridization results are interpreted with controls that demonstrate appropriate staining reactions. Note on use of immunohistochemistry reagents and in situ hybridization probes: These tests were developed and their performance characteristics determined by [facility], Department of Laboratory Medicine. [...] part or completely in the following laboratories: [facility], CLIA #[id number] [address] [place] [address] [facility], CLIA #[id number] [address] [place] [address] [facility], CLIA #[id number] [address] [place] [address] This report was created with the [employer] voice-activated dictation system. Inherent to this system is the possibility of syntax, grammar, punctuation and other errors that could impact the interpretation of the report. If there are interpretative questions about aspects of this report, please contact the performing pathologist. 9:[address] [facility] Bone marrow ALL BONE MARROW / [...] PM CDT us Jayson Henriquez MD PATHOLOGY/CYTOLOGY ANGELADoroteo DELANEY Edited Result - Final [facility] LABORATORY SERVICES [facility]# [id number] [address] [facility] [place] [address] * IR BIOPSY BONE MARROW (01/21/2025 12:09 PM CDT) Anatomical Region Laterality Modality X-Ray Angiograph y 01/21/2025 12:1 8 PM CDT Impressions 01/21/2025 2:57 PM CDT IMPRESSION: Successful left iliac bone marrow biopsy and aspiration. DICTATION LOCATION: Location 1 - [facility] Narrative 01/21/2025 2:57 PM CDT FLUOROSCOPY [...] posterior left iliac was accessed with the Digitwhiz biopsy device using realtime fluoroscopic guidance. A [...] posterior left iliac was accessed with the Digitwhiz biopsy device using realtime fluoroscopic guidance. A [...] and aspiration. DICTATION LOCATION: Location 1 - [facility] Iron Cunningham MD IR ORDERABLES Final Result * MANUAL DIFFERENTIAL (01/21/2025 10:06 AM CDT) PLATELET EST. Consistent w Count 01/21/2025 11:20 AM CDT [facility] LABORATORY SERVICES - . [facility] ANISOCYTOSIS 1+ /hpf 01/21/2025 11:20 AM CDT [facility] LABORATORY SERVICES - . [facility] POIKILOCYTES 1+ /hpf 01/21/2025 11:20 AM CDT [facility] LABORATORY SERVICES - . [facility] MACROCYTES 1+ /hpf 01/21/2025 11:20 AM CDT [facility] LABORATORY SERVICES - . [facility] POLYCHROMASIA 1+ /hpf 01/21/2025 11:20 AM CDT [facility] LABORATORY SERVICES - [facility] HYPOCHROMIA 1+ /hpf 01/21/2025 11:20 AM CDT [facility] LABORATORY [facility] OVALOCYTES 1+ /hpf 01/21/2025 11:20 AM CDT [facility] LABORATORY SERVICES - . [facility] Blood Venipuncture / Unknown 01/21/2025 10:06 AM CDT 01/21/2025 10:19 AM CDT Erasmo Bang MD HEMATOLOGY ORDERABLES COM Fin al Result [facility] SERVICES - [facility] CLIA# [id number] [address] [facility] [address] * (ABNORMAL) CBC WITH DIFFERENTIAL (01/21/2025 10:06 AM CDT) WBC 5.0 4.0 - 9.8 K/uL 01/21/2025 10:57 AM T [employer] LABORATORY SERVICES [facility] RBC 2.05(L) 4.50 - 5.40 M/uL 01/21/2025 10:57 AM [facility] [employer] [facility] HEMOGLOBIN 6.2(LL) 13.6 - 16.5 g/dL 01/21/2025 10:57 AM [facility] LABORATORY SERVICES [facility] Comment: Verified by repeat analysis. HEMATOCRIT 20.8(L) 40.0 - 48.0 % 01/21/2025 10:57 AM T [employer] LABORATORY SERVICES [facility] MCV 101.5(H) 82.0 - 99.0 fL 01/21/2025 10:57 AM T [employer] [facility] MCH 30.2 27.2 - 32.6 pg 01/21/2025 10:57 AM T [employer] [facility] SERVICES [facility] MCHC 29.8(L) 31.5 - 35.5 g/dL 01/21/2025 10:57 AM T [facility] LABORATORY SERVICES [facility] RDW 16.2(H) 11.5 - 14.5 % 01/21/2025 10:57 AM CDT [facility] LABORATORY SERVICES - [facility] RDW-STDEV 60.3(H) 37.1 - 48.7 fL 01/21/2025 10:57 AM CDT [facility] LABORATORY SERVICES - [facility] PLATELETS 240 140 - 350 K/uL 01/21/2025 10:57 AM CDT [facility] LABORATORY SERVICES - [facility] MPV 8.5(L) 9.3 - 12.4 fL 01/21/2025 10:57 AM CDT [facility] LABORATORY SERVICES - [facility] NEUTROPHILS 70 % 01/21/2025 10:57 AM CDT [facility] LABORATORY SERVICES - . [facility] LYMPHOCYTES 12 % 01/21/2025 10:57 AM CDT [facility] LABORATORY SERVICES - . [facility] MONOCYTES 15 % 01/21/2025 10:57 AM CDT [facility] LABORATORY SERVICES - . [place] EOSINOPHILS 3 % 01/21/2025 10:57 AM CDT [facility] LABORATORY SERVICES - . [facility] BASOPHILS 1 % 01/21/2025 10:57 AM CDT [facility] LABORATORY SERVICES - [facility] IMMATURE GRANULOCYTES 0 % 01/21/2025 10:57 AM The Rowing TeamT [facility] LABORATORY SERVICES - [facility] NEUTROPHIL ABSOLUTE 3.48 1.90 - 7.00 K/uL 01/21/2025 10:57 AM CDT [facility] LABORATORY SERVICES - [facility] LYMPHOCYTE ABSOLUTE 0.58(L) 0.70 - 4.50 K/uL 01/21/2025 10:57 AM CDT [facility] LABORATORY SERVICES - [facility] MONOCYTE ABSOLUTE 0.74 0.10 - 1.30 K/uL 01/21/2025 10:57 AM CDT [facility] LABORATORY SERVICES - [facility] EOSINOPHIL ABSOLUTE 0.14 0.00 - 0.70 K/uL 01/21/2025 10:57 AM The Rowing [employer]T [facility] LABORATORY SERVICES - . [facility] BASOPHILS ABSOLUTE 0.03 0.00 - 0.20 K/uL 01/21/2025 10:57 AM The [employer] [facility] LABORATORY SERVICES - . [facility] IMMATURE GRANULOCYTES ABSOLUTE 0.02 0.00 - 0.03 K/uL 01/21/2025 10:57 AM The Rowing [employer]T [facility] LABORATORY SERVICES - [facility] Blood Venipuncture / Unknown 01/21/2025 10:06 AM CDT 01/21/2025 10:19 AM CDT Erasmo Bang MD HEMATOLOGY ORDERABLES Final R esult [facility] LABORATORY [facility]# [id number] [address] [place] [address] * (ABNORMAL) BASIC METABOLIC PANEL (01/21/2025 9:16 AM CDT) SODIUM 141 136 - 145 mmol/L 01/21/2025 10:11 AM [facility] LABORATORY [facility] POTASSIUM 4.4 3.5 - 5.0 mmol/L 01/21/2025 10:11 AM [facility] LABORATORY [facility] CHLORIDE 99 98 - 107 mmol/L 01/21/2025 10:11 AM [facility] LABORATORY [facility] CO2 29 22 - 29 mmol/L 01/21/2025 10:11 AM [facility] LABORATORY [facility] CALCIUM 8.4(L) 8.6 - 10.2 mg/dL 01/21/2025 10:11 AM [facility] LABORATORY [facility] BUN 56(H) 8 - 23 mg/dL 01/21/2025 10:[address] [facility] CREATININE 6.05(H) 0.67 - 1.17 mg/dL 01/21/2025 10:11 AM [facility] LABORATORY [facility] Comment:The GFR result is no t clinically significant on patients <18 or >70 years of age. GLUCOSE 110(H) 74 - 99 mg/dL 01/21/2025 10:11 AM [facility] LABORATORY [facility] GFR 9 mL/min/1.7 3 sq meter 01/21/2025 10:11 AM [facility] LABORATORY [facility] Comment:eGFR calculated with 2020 CKD-EPI equation. Vegetarian diet, extremely high or low muscle mass, and may affect results. Cystatin C with Glomerular Filtration Rate is a suitable alternative for these patients. ANION GAP 13 8 - 16 mmol/L 01/21/2025 10:11 AM [facility] LABORATORY [facility] Blood Venipuncture / Unknown 01/21/2025 9:16 AM CDT 01/21/2025 9:21 AM CDT Jean-Pierre Cunha MD CHEMISTRY ORDERABLES Final Re sult [facility] Organization Address City/State/ZIP Co de Phone Number [facility] [id number] [address] [place], [place] [address] from Last 3 Months Insurance [facility] M[facility] MCR
--- OUTSIDE RECORDS SUMMARY | 2025-04-14 15:38 | XMS_ITS | Encounter Summary ---
Author Organization [facility] Address [address] [place] [address] Care Team Providers Care Right Of Way Agent Name Role Phone Chandler Geronimo DO Primary Care Provide r Encounter Details Date Type Department Care Team (Late st Contact Info) Description 01/10/2022 Therapy Plan [facility] Infusion Services [place] [id number] David Hamilton MD 3 [facility], [address] [phone] Social History Tobacco Use Types Packs/Day Years [...] Sex Assigned at Male 07/22/2024 2:00 PM ACCOUNTANCY PROFESSOR Legal Sex Male 2:48 PM ACCOUNTANCY PROFESSOR Gender Identity Not on file Sexual Orientation [...] Assessment Author Status No 06/13/2021 2:44 AM ACCOUNTANCY PROFESSOR Activ e * RETIRED Are you blind or do you have serious difficulty seeing, even when wearing glasses? Answer Date of Assessment Author Status No 06/13/2021 2:44 AM ACCOUNTANCY PROFESSOR Activ e * Do you have serious [...] documented as of this encounter Care Teams Right Of Way Agent Relationship Specialty Start Date End Date Chandler Geronimo DO [address] [place] [phone] PCP - General FAMILY PRACTICE 05/29/21 documented as of this encounter
--- OUTSIDE RECORDS SUMMARY | 2025-04-14 15:38 | XMS_ITS | Encounter Summary ---
Author Organization [facility] Address [address] [place] [address] Care Team Providers Care Warehouse Team Leader Name Role Phone Chandler Geronimo DO Primary Care Prov ider Encounter Details Date Type Department Care Team (Late st Contact Info) Description 09/10/2024 Orders Only [facility] Information Management [address] [place] [address] Scanning, Provider Social History Tobacco Use Types Packs/Day Years Used Date Smoking Tobacco: Never Assessed Sex and Gender Information Value Date Recorded Sex Assigned at Not on file Legal Sex Male 5:28 PM CHILD PSYCHOMETRIST Gender Identity Not on file Sexual Orientation Not on file documented as of this encounter Plan of Treatment Upcoming Encounters Date Type Department Care Team (Late st Contact Info) Description 04/05/2025 11:59 PM CHILD PSYCHOMETRIST Anesthesia Event [facility] Cardiac Catheterization Lab [address] [place] [address] [place] [address] [address] documented as of this encounter Procedures Procedure Name Priority Date/Time Associated Diagnosis Comments SCAN - RADIOLOGY/IMAGING 09/10/2024 documented in this encounter Results * SCAN - RADIOLOGY/IMAGING (09/10/2024) Anatomical Region Laterality Modality Other us Provider Scanning Final Result documented in this encounter Visit Diagnoses Not on filedocumented in this encounter Care Teams Warehouse Team Leader Relationship Specialty Start Date End Date Chandler Geronimo DO PCP - General Family Medicine 06/07/21 documented as of this encounter
--- OUTSIDE RECORDS SUMMARY | 2025-04-14 15:38 | XMS_ITS | Encounter Summary ---
Author Organization [facility] Address [address] [place] [address] Care Team Providers Care Director Supplier Quality Name Role Phone Chandler Geronimo DO Primary Care Provide r Encounter Details Date Type Department Care Team (Late st Contact Info) Description 10/21/2022 Therapy Plan [facility] Infusion Services [address] [place] [phone] David Hamilton MD 3 [facility], [place] [phone] Social History Tobacco Use Types Packs/Day Years [...] declined 10/10/2022 How often do you attend restorationist or roman catholic serv ices? Patient declined 10/10/2022 Do you belong to any clubs o r organizations such as restorationist groups, unions, fraternal or athletic groups, or [...] Recorded Patient Health Questionnaire-2 Score 0 10/21/2022 [facility] - [...] place to sleep or slept in a residential (including now)? No 10/10/2022 Sex and Gender Information Value Date Recorded Sex Assigned at Male 07/22/2024 2:00 PM WELDING MACHINE OPERATOR FRICTION Legal Sex Male 2:48 PM WELDING MACHINE OPERATOR FRICTION Gender Identity Not on file Sexual Orientation [...] documented as of this encounter Care Teams Director Supplier Quality Relationship Specialty Start Date End Date Chandler Geronimo DO [address] [place] [phone] PCP - General FAMILY PRACTICE 05/29/21 documented as of this encounter
--- OUTSIDE RECORDS SUMMARY | 2025-04-14 15:38 | XMS_ITS | Encounter Summary ---
Author Organization [facility] Address [address] [place] [address] Care Team Providers Care Stock Taker Name Role Phone Chandler Geronimo DO Primary Care Provide r Encounter Details Date Type Department Care Team (Late st Contact Info) Description 07/16/2021 Therapy Plan [facility] Infusion Services [address] [place] [phone] David Hamilton MD 3 [facility], [address] [phone] Social History Tobacco Use Types Packs/Day Years Used Date Smoking Tobacco: Never Smokeless Tobacco: Never Alcohol Use Standard Drinks/Week Comments Never 0 (1 standard drink = 0.6 oz pur e alcohol) Sex and Gender Information Value Date Recorded Sex Assigned at Male 07/22/2024 2:00 PM DENTAL TECHNICIAN METAL Legal Sex Male 2:48 PM DENTAL TECHNICIAN METAL Gender Identity Not on file Sexual Orientation Not on file COVID-19 Exposure Response Date Recorded In the last 10 days, have yo u been in contact with someone who was confirmed or suspected to have Coronavirus/COVID-19? No / Unsure 07/16/2021 3:48 PM DENTAL TECHNICIAN METAL documented as of this encounter Functional Status * RETIRED Are you deaf or do you have serious difficulty hearing Answer Date of Assessment Author Status No 06/13/2021 2:44 AM DENTAL TECHNICIAN METAL Activ e * RETIRED Are you blind or do you have serious difficulty seeing, even when wearing glasses? Answer Date of Assessment Author Status No 06/13/2021 2:44 AM DENTAL TECHNICIAN METAL Activ e * Do you have serious [...] chronic kidney disease, not on chronic dialysis ([facility])- Primary documented in this encounter Care Teams Stock Taker Relationship Specialty Start Date End Date Chandler Geronimo DO [address] [place] [phone] PCP - General FAMILY PRACTICE 05/29/21 documented as of this encounter
[2025-04-14 15:47] LABS: Immature Granulocyte Percent A 0.4 % (0-0.5); Lymphocytes Absolute Auto 0.53 K/mm3 (0.9-3.2); Mean Corpuscular HGB Conc 28.8 g/dl (32-36); Mean Corpuscular Hemoglobin 29.6 pg (26-34); Mean Corpuscular Volume 102.7 fl (80-100); Nucleated Red Blood Cells Absolute Auto 0.000 K/mm3 (0.0-0.012); Nucleated Red Blood Cells Perc 0.0 % (0.0-0.2); Platelet Count Result 244 k/mm3 (150-375); Red Blood Count 1.86 M/mm3 (4.6-6.20); White Blood Count 5.6 K/mm3 (4.5-10.0)
[2025-04-14 15:49] LABS: Hematocrit 19.1 % (42.0-52.0); Hemoglobin 5.5 g/dL (14.0-18.0)
[2025-04-14 15:51] LABS: Hypochromasia 1+; Schistocytes None Seen
[2025-04-14 15:52] LABS: Anisocytosis 1+; Macrocytosis 1+ (NORMAL); Ovalocytes 1+
== END 2025-04-14 15:35 | disposition home or self-care (01) ==
PROVIDERS: Visit Provider Internal Medicine Hematology & Oncology
DX: D64.9 Anemia, unspecified (principal)
CPT/HCPCS: 36415; 85025; 86850; 86900; 86901; 86923

== ENCOUNTER 2025-05-10 12:37 | Emergency (ER) | payer MEDICARE, MEDICAID, SELFPAY ==
[2025-05-10] VITALS (11 sets, daily range): BP systolic 115–149; BP diastolic 40–71; PULSE 65–77; RESP 12–24; TEMP 36.4–36.8; O2SAT 94–100
--- NOTE | ~2025-05-10 | XR_ITS ---
EXAMINATION: XR chest 1V portable DATE: 05/10/2025 13:40 INDICATION: Low blood pressure TECHNIQUE: A single frontal view of the chest was obtained. COMPARISON: March 28, 2025 FINDINGS: Consolidative appearing changes in the right lower lobe worse compared to the previous study. Small bilateral pleural effusions. Upper lung lemus clear. Heart shadow mildly enlarged. IMPRESSION: 1. Increased opacification the right lung base could represent pulmonary edema associated vascular congestion; pneumonia could have a similar appearance. Correlate with follow-up chest x-ray after treatment. 2. Other findings as above. Reviewed, dictated and finalized at location A. P STAMP STRAIGHTENER IMPRESSION: 1. Increased opacification the right lung base could represent pulmonary edema associated vascular congestion; pneumonia could have a similar appearance. Allegra elate with follow-up chest x-ray after treatment. 2. Other findings as above.
--- NOTE | 2025-05-10 13:30 | ED.RECABL ---
HPI - Recheck/Abnormal Lab/Rx General Chief Complaint: Recheck/Abnormal Lab/Rx Stated Complaint: drop in blood pressure during dialysis Time Seen by Provider: 05/10/25 13:18 History of Present Illness HPI narrative: Patient was at dialysis and had just finished, when he started getting very dizzy; blood pressure dropped. He almost fell but someone caught him. Has had to get blood transfusions in the past. Related Data Home Medications ?Medication ?Instructions ?Recorded ?Confirmed ?Last Taken ?Type allopurinol 100 mg tablet See Rx Instructions .Route .COMPLEX 09/06/24 04/21/25 10/14/24 History amiodarone 400 mg tablet 200 mg PO DAILY 09/06/24 04/21/25 11/30/24 History calcitriol 0.25 mcg capsule 0.25 mcg PO DAILY 09/06/24 04/21/25 11/30/24 History doxazosin 4 mg tablet (Cardura) 4 mg PO QPM 09/06/24 04/21/25 11/30/24 History furosemide 40 mg tablet 120 mg PO BID 09/06/24 04/21/25 10/15/24 History pantoprazole 40 mg tablet,delayed 40 mg PO QAM 09/06/24 04/21/25 11/30/24 History release (Protonix) vitamin B complex-vitamin C-folic 1 tablet PO DAILY 09/06/24 04/21/25 11/30/24 History acid 800 mcg chewable tablet (Dialyvite 800) atorvastatin 20 mg tablet 80 mg PO EVENING 04/19/25 04/21/25 Unknown History ferrous sulfate 325 mg (65 mg 325 mg PO DAILY 04/19/25 04/21/25 Unknown History iron) tablet (iron) sodium bicarbonate 650 mg tablet 650 mg PO DAILY PRN 04/19/25 04/21/25 Unknown History Allergies Allergy/AdvReac Type Severity Reaction Status Date / Time No Known Allergies Allergy Verified 05/10/25 13:24 Review of Systems Review of Systems: All systems reviewed & are unremarkable except as noted in HPI and below PMFSH Past Medical History Medical History Diastolic congestive heart failure ANCA-associated vasculitis Hyperlipidemia Hyperuricemia Diabetes Hypertension Atrial fibrillation Anemia Pleural effusion Hypotension Acute on chronic anemia Pericardial effusion History of end stage renal disease Surgical History Surgical History History of back surgery H/O bilateral cataract extraction Family History Family History Father Myocardial infarct Sibling Myocardial infarct Mother Dementia Social History Social History Smoking status: Former smoker Additional smoking assessment comments: quit many years ago Alcohol intake: never Substance use: never Lack of Transportation: No Lack of Food: Never True Current Housing: I Have Housing Concerned About Future Housing: No Difficulty Paying Gas/Electric Bills: No Difficulty Paying for Meds: No Currently Unemployed: No Education: High School Diploma/GED Difficulty w/ Childcare or Family Care: No Spiritual care concerns: No Exam Narrative: EXAMINATION OF ORGAN SYSTEMS/BODY AREAS: Constitutional: Vital signs per nursing GENERAL: Sleeping but wakes up to voice HEAD: Normal with no signs of head trauma. EYES: Pale conjunctiva ENT: Hearing grossly intact LUNGS: Nonlabored breathing. HEART: Regular rate and rhythm ABD: Soft, nontender to palpation EXT: Normal range of motion SKIN: Pale NEURO: Sleeping but wakes to voice. No gross focal sensory or strength deficits. PSYCH: Normal affect Course Vital Signs Vital signs: Vital Signs Temperature 98.3 F 05/10/25 12:46 Pulse Rate 65 05/10/25 12:46 Respiratory Rate 12 05/10/25 12:46 Pulse Oximetry 96 05/10/25 12:46 Oxygen Delivery Room Air 05/10/25 12:46 Temperature 98.2 F 05/10/25 19:02 Pulse Rate 76 05/10/25 19:02 Respiratory Rate 20 05/10/25 19:02 Blood Pressure 149/54 H 05/10/25 19:02 Pulse Oximetry 96 05/10/25 19:02 Oxygen Delivery Room Air 05/10/25 13:15 MDM MDM Narrative Medical decision making narrative: Patient finished his HD and when he got ready to go home, he got very dizzy, almost fell, someone caught him; he has had transfusions in the past. On exam he is sleeping and pale but otherwise no focal neurologic deficits. Labs concerning for hemoglobin of 5.1, though he has had this frequently in the past required transfusions. Transfused 2 units here and on re-evaluation, he is now smiling, alert, back to his normal self, not having any complaints or symptoms. Family members happy to take him home and he has follow-up with his primary care doctor in the morning. Return precautions discussed. Beater Worker Helper used Differential Diagnosis Differential Diagnosis: anemia, hypotension from HD, low volume Lab Data 05/10/25 13:28 05/10/25 13:28 Labs: Lab Results 05/10/25 05/10/25 Range/Units 13:28 13:48 WBC 5.9 (4.5-10.0) K/mm3 RBC 1.67 L (4.6-6.20) M/mm3 Hgb 5.1 L* (14.0-18.0) g/dL Hct 17.8 L* (42.0-52.0) % MCV 106.6 H (80-100) fl MCH 30.5 (26-34) pg MCHC 28.7 L (32-36) g/dl RDW 19.6 H (11.5-14.5) % Plt Count 256 (150-375) k/mm3 MPV 8.3 (7.4-10.4) fl Immature Gran % (Auto) 0.5 (0-0.5) % Neut % (Auto) 82.0 H (45.5-73.1) % Lymph % (Auto) 6.1 L (18.3-44.2) % [place] % (Auto) 8.9 H (2.6-8.5) % Eos % (Auto) 2.0 (0-4.4) % Baso % (Auto) 0.5 (0.2-1.2) % Lymph # (Auto) 0.36 L (0.9-3.2) K/mm3 [place] # (Auto) 0.5 (0.1-0.6) K/mm3 Eos # (Auto) 0.1 (0-0.3) K/mm3 Baso # (Auto) 0.0 (0.0-0.1) K/mm3 Abs Immat Gran (auto) 0.03 (0.00-0.031) K/mm3 Absolute Neuts (auto) 4.8 (1.3-6.7) K/mm3 Absolute Nucleated RBC 0.000 (0.0-0.012) K/mm3 Band Neutrophils % Not Reportable Nucleated RBC % 0.0 (0.0-0.2) % Platelet Estimate Adequate (Adequate) Hypochromasia 2+ Anisocytosis 1+ Ovalocytes 1+ Schistocytes Occasional Sodium 132 L (137-145) mmol/L Potassium 4.3 (3.4-5.0) mmol/L Chloride 97 L (98-107) mmol/L Carbon Dioxide 32 H (22-30) mmol/L Anion Gap 3 L (4-12) mmol/L BUN 50 H (9-20) mg/dL Creatinine 4.61 H (0.7-1.3) mg/dL Estim Creat Clear Calc 13 ml/min Estimated GFR 12 L (59 - ) Glucose 106 (65-110) mg/dL Calcium 8.7 (8.4-10.2) mg/dL Total Bilirubin 0.3 (0.2-1.3) mg/dL AST 29 (17-59) U/L ALT 33 (6-50) U/L Alkaline Phosphatase 194 H (38-126) U/L Total Protein 5.5 L (6.3-8.2) g/dL Albumin 3.0 L (3.5-5.1) g/dL Blood Type O Positive Antibody Screen Negative Crossmatch See Detail Imaging Data Radiologist's impression: ITS Impressions Chest X-Ray 05/10/25 13:48 IMPRESSION: 1. Increased opacification the right lung base could represent pulmonary edema associated vascular congestion; pneumonia could have a similar appearance. Correlate with follow-up chest x-ray after treatment. 2. Other findings as above. Discharge Plan Discharge Clinical Impression: Anemia, Hypotension Patient Disposition: Home Condition: Stable Instructions: Anemia (ED) Additional Instructions: Follow-up with your primary care doctor as scheduled tomorrow, if you have any concerning issues or symptoms worsen, come back to the ER. Patient Language: Nepali Prescriptions: No Action atorvastatin 20 mg tablet 80 mg PO EVENING sodium bicarbonate 650 mg tablet 650 mg PO DAILY PRN furosemide 40 mg tablet 120 mg PO BID Rx Instructions: on non-dialysis days allopurinol 100 mg tablet See Rx Instructions .ROUTE .COMPLEX Rx Instructions: after dialysis Friday, , Friday amiodarone 400 mg tablet 200 mg PO DAILY pantoprazole [Protonix] 40 mg tablet,delayed release (DR/EC) 40 mg PO QAM doxazosin [Cardura] 4 mg tablet 4 mg PO QPM calcitriol 0.25 mcg capsule 0.25 mcg PO DAILY Dialyvite 800 800 mcg tablet,chewable 1 tablet PO DAILY aspirin 81 mg Tablet,Delayed Release (Dr/Ec) 81 mg PO QAM Qty: 30 0RF ferrous sulfate [iron] 325 mg (65 mg iron) tablet 325 mg PO DAILY metoprolol tartrate 25 mg tablet See Rx Instructions .ROUTE .COMPLEX Qty: 90 3RF Dose Instruction: TAKE 1 TABLET BY MOUTH EVERY DAY. Rx Instructions: TAKE 1 TABLET BY MOUTH EVERY DAY. Follow-up/Referrals: PHYSICIAN NOT ON STAFF,NONSTAFF [Non-Staff]
[2025-05-10 13:37] LABS: Immature Granulocyte Percent A 0.5 % (0-0.5); Lymphocytes Absolute Auto 0.36 K/mm3 (0.9-3.2); Mean Corpuscular HGB Conc 28.7 g/dl (32-36); Mean Corpuscular Hemoglobin 30.5 pg (26-34); Mean Corpuscular Volume 106.6 fl (80-100); Nucleated Red Blood Cells Absolute Auto 0.000 K/mm3 (0.0-0.012); Nucleated Red Blood Cells Perc 0.0 % (0.0-0.2); Platelet Count Result 256 k/mm3 (150-375); Red Blood Count 1.67 M/mm3 (4.6-6.20); White Blood Count 5.9 K/mm3 (4.5-10.0)
[2025-05-10 13:44] LABS: Hematocrit 17.8 % (42.0-52.0); Hemoglobin 5.1 g/dL (14.0-18.0)
[2025-05-10 13:51] LABS: Alanine Aminotransferase 33 U/L (6-50); Albumin Level 3.0 g/dL (3.5-5.1); Alkaline Phosphatase 194 U/L (38-126); Anion Gap 3 mmol/L (4-12); Aspartate Amino Transferase 29 U/L (17-59); Bilirubin,Total 0.3 mg/dL (0.2-1.3); Blood Urea Nitrogen 50 mg/dL (9-20); Calcium 8.7 mg/dL (8.4-10.2); Carbon Dioxide 32 mmol/L (22-30); Chloride 97 mmol/L (98-107); Estimated CRCL calculation 13 ml/min; Estimated Glomerular Filt Rate 12; Glucose 106 mg/dL (65-110); Potassium 4.3 mmol/L (3.4-5.0); Sodium 132 mmol/L (137-145); Total Protein 5.5 g/dL (6.3-8.2)
[2025-05-10 14:00] LABS: Anisocytosis 1+; Hypochromasia 2+; Ovalocytes 1+
[2025-05-10 14:01] LABS: Schistocytes Occasional
[2025-05-10] MEDS: SODIUM CHLORIDE 0.9% IV 250 ML 30 ML IV CONT (15:17)
== END 2025-05-10 19:30 | disposition home or self-care (01) ==
PROVIDERS: Emergency Provider Emergency Medicine
DX: D64.9 Anemia, unspecified (principal); I95.9 Hypotension, unspecified; E11.22 Type 2 diabetes mellitus with diabetic chronic kidney disease; I13.2 Hypertensive heart and chronic kidney disease with heart failure and with stage 5 chronic kidney disease, or end stage renal disease; I50.30 Unspecified diastolic (congestive) heart failure; N18.6 End stage renal disease; Z99.2 Dependence on renal dialysis; I48.91 Unspecified atrial fibrillation; E78.5 Hyperlipidemia, unspecified; Z98.42 Cataract extraction status, left eye; Z98.41 Cataract extraction status, right eye; Z87.891 Personal history of nicotine dependence; Z79.899 Other long term (current) drug therapy; Z79.82 Long term (current) use of aspirin
CPT/HCPCS: 36415; 36430; 71045; 80053; 85025; 86850; 86900; 86901; 86923; 96360; 96361; 99285; J7050; P9016

== ENCOUNTER 2025-05-12 13:58 | Outpatient (CLI) | payer MEDICARE, MEDICAID, SELFPAY ==
[2025-05-12 14:11] LABS: Hematocrit 23.4 % (42.0-52.0); Hemoglobin 7.2 g/dL (14.0-18.0); Immature Granulocyte Percent A 0.5 % (0-0.5); Lymphocytes Absolute Auto 0.49 K/mm3 (0.9-3.2); Mean Corpuscular HGB Conc 30.8 g/dl (32-36); Mean Corpuscular Hemoglobin 31.3 pg (26-34); Mean Corpuscular Volume 101.7 fl (80-100); Nucleated Red Blood Cells Absolute Auto 0.000 K/mm3 (0.0-0.012); Nucleated Red Blood Cells Perc 0.0 % (0.0-0.2); Platelet Count Result 216 k/mm3 (150-375); Red Blood Count 2.30 M/mm3 (4.6-6.20); White Blood Count 6.6 K/mm3 (4.5-10.0)
[2025-05-12 14:15] LABS: Blood Urea Nitrogen 48 mg/dL (8-26); Carbon Dioxide 30 mmol/L (22-30); Chloride 93 mmol/L (98-109); Estimated Glomerular Filt Rate 11; Glucose 126 mg/dL (70-105); Ionized Calcium (POC) 1.15 mmol/L (1.11-1.31); Potassium 4.3 mmol/L (3.5-4.9); Sodium 137 mmol/L (138-146)
--- OUTSIDE RECORDS SUMMARY | 2025-05-12 14:15 | XMS_ITS | Encounter Summary ---
Author Organization [facility] Address [address] [place] [address] Care Team Providers Care Repairer Handtools Name Role Phone Unavailable Primary Care Provider Unavailabl e Reason for Visit * Reason Comments Follow Up Encounter Details Date Type Department Care Team (Late st Contact Info) Description 05/12/2025 2:15 PM PRODUCTION MACHINE OPERATOR Office Visit [facility] Oncology and Hematology - [place] [address] [place] [address] [facility] [address] [place] [address] Iron Cunningham MD [address] [facility] [address] [place] [address] Chronic anemia (Primary Dx) Social [...] Sign Reading Time Taken Comments Blood Pressure 121/43 05/12/2025 2:14 PM PRODUCTION MACHINE OPERATOR Pulse 64 05/12/2025 2:14 PM PRODUCTION MACHINE OPERATOR Temperature 37 C (98.6 F) 05/12/2025 2:14 PM PRODUCTION MACHINE OPERATOR Respiratory Rate 15 05/12/2025 2:14 PM PRODUCTION MACHINE OPERATOR Oxygen Saturation 93% 05/12/2025 2:14 PM PRODUCTION MACHINE OPERATOR Inhaled Oxygen Concentration - - Weight 79.9 kg (176 lb 3.2 oz) 05/12/2025 2:14 P M PRODUCTION MACHINE OPERATOR Height - - Body Mass Index 25.28 12/16/2024 2:28 PM CDT documented in this encounter Progress Notes * Iron Cunningham MD - 05/12/2025 2:25 PM CST HEMATOLOGY / ONCOLOGY PROGRESS NOTE Patient Identification: Name: Bulmaro Gamez Age: 75 y.o. Sex: male : 1950 DIAGNOSIS Chronic anemia CURRENT TREATMENT Epogen with hemodialysis TREATMENT HISTORY Bone marrow aspiration and biopsy done on January 21, 2025 SUBJECTIVE Patient came to the office for follow-up visit. He denies any tiredness and fatigue after receiving2 units of packed red blood cell 2 days ago. No bleeding. No other new complaints. Review of system Constitutional: Patient did not mention fevers, sweats, improvement in tiredness and fatigue HEENT: Patient did not mention sinus congestion, hearing or vision problems Respiratory: Patient did not mention cough, dyspnea, wheeze Cardiovascular: Patient did not mention chest pain, exertional chest pressure/discomfort, nausea, syncope, shortness of breath GI: Patient did not mention constipation, diarrhea, dsyphagia, reflux symptoms, vomiting, melena : Patient did not mention dysuria, frequency, incontinence, urgency Integumentary system: no lymphadenopathy, sweats, flushing Musculoskeletal: Patient not mention: myalgia, arthralgia Neurological: Patient did not mention blurry or disturbed vision, numbness/weakness, dizziness Skin: No lumps, bumps or rashes. 12 point review of system was reviewed Objective: Vital signs in last 24 hours: As per nursing note Exam: HEENT: Atraumatic, external ears normal, nose normal, oropharynx moist, no pharyngeal exudates. no sinus tenderness Neck- normal range of motion, no tenderness, supple Respiratory: No respiratory distress, normal breath sounds, no rales, no wheezing Cardiovascular: Normal rate, normal rhythm, no murmurs, no gallops, no rubs GI: Soft, nondistended, normal bowel sounds, nontender, no splenomegaly, no hepatomegaly, no mass, no rebound, no guarding : No costovertebral angle tenderness Musculoskeletal: No edema, no tenderness, no deformities. Back- no tenderness Integument: Well hydrated, no rash, Digits and nails inspection normal Lymphatic: No lymphadenopathy noted Neurologic: Alert & oriented x 3, CN 2-12 normal, normal motor function, normal sensory function, no focal deficits noted Exam as above PATH LABS Labs from December 16 showed M spike 0.1 soluble transferrin receptor slightly elevated 29.8 creatinine3.4 GFR 18 B12 926 iron 195 saturation 80 hemoglobin 5.9 erythropoietin 475 [place] light chain elevated 77.4 Labs from May 12 showed hemoglobin 7.2 creatinine 5.1 @IMAGEIMP@ Assessment: Plan: There are no active problems to display for this patient. Chronic anemia. Patient is on dialysis for end-stage renal disease. He is getting Epogen with the hemodialysis. Labs showed elevated Epogen level of 475 with normal B12 and slightly elevated soluble transferrin receptor consistent with mild iron deficiency. Bone marrow aspiration and biopsy done on January 21, 2025 that showed hypercellular marrow and trilineage hematopoiesis with mild dyserythropoiesis. No increase in myeloblasts. Adequate iron stain. Negative for monoclonal B cells T-cell and blast population. There is no increased plasma cells. Normal male karyotype. No pathogenic mutation is detected in any of the genes on the NGS panel. These findings may suggest low-grade MDS but unlikely given normal cytogenetics and normal NGS panel. Labs showed improvement in hemoglobin after receiving 2 units of packed red blood cells just about 2 days ago when the hemoglobin dropped to 5.3. He will continue Epogen with hemodialysis and follow-up with me in 3 months. Will continue to check blood every 2 weeks basis and we will transfuse him for hemoglobin of less than 6. Patient is going to have capsule enteroscopy on May [address] Orozco. End-stage renal disease. He is on hemodialysis in July 2024 and will follow-up with a greenhouse florist. Hypertension. Stable on Lopressor. GERD. He is on Protonix. Follow-up in 3 months 05/12/2025 Iron Cunningham MD UCTION MACHINE OPERATOR documented in this encounter Plan of Treatment Upcoming Encounters Date Type Department Care Team (Late st Contact Info) Description 08/11/2025 2:45 PM CDT Office Visit [facility] Oncology and Hematology - [place] [address] [place] [address] Iron Cunningham MD [address] [facility] [address] [place] [phone] Scheduled Orders Name Type Priority Associated Diagnoses Orde r Schedule CBC WITHOUT DIFFERENTIAL Lab Stat Chronic anemia Expected: 08/04/2025, Expires: 05/12/2026 BASIC METABOLIC PANEL Lab Stat Chronic anemia Expected: 08/04/2025, Expires: 05/12/2026 FERRITIN Lab Routine Chronic anemia Expected: 08/04/2025, Expires: 05/12/2026 IRON, TIBC, AND PERCENT SATURATION Lab Routine Chronic anemia Expected: 08/04/2025, Expires: 05/12/2026 documented as of this encounter Visit Diagnoses Diagnosis Chronic anemia- Primary Anemia, unspecified documented in this encounter
--- OUTSIDE RECORDS SUMMARY | 2025-05-12 16:46 | XMS_ITS | Clinical Summary ---
Author Organization [facility] Address [address] [place] [address] Care Team Providers Care Cargo Worker Name Role Phone Unavailable Primary Care [...] Encounters Date Type Department Care Team Description 05/12/2025 2:15 PM AIRPLANE REFUELER Office Visit [facility] Oncology and Hematology - [place] [address] [place] [phone] Iron Cunningham MD Chronic anemia (Primary Dx) 05/10/2025 External Device Data STL ABSTRACTION Provider, Abstract 05/03/2025 External Device Data STL ABSTRACTION Provider, Abstract 04/15/2025 Abstract [facility] Oncology and Hematology - [place] [address] [place] [address] Iron Cunningham MD 04/15/2025 Orders Only [facility] Oncology and Hematology - [place] [address] [place] [address] Iron Cunningham MD 04/14/2025 Orders Only [facility] Oncology and Hematology - [place] [address] Iron Cunningham MD Chronic anemia (Primary Dx) 04/12/2025 Telephone [facility] Oncology and Hematology - [place] [address] [place] [phone] Iron Cunningham MD Lab questions 04/01/2025 Orders Only [facility] Oncology and Hematology - [place] [address] [place] [phone] Iron Cunningham MD 03/31/2025 Telephone [facility] Oncology and Hematology - [place] [address] [place] [phone] Iron Cunningham MD Lab Results 03/23/2025 External Device Data STL ABSTRACTION Provider, Abstract 03/22/2025 External Device Data STL ABSTRACTION Provider, Abstract 03/08/2025 External Device Data STL ABSTRACTION Provider, Abstract 02/15/2025 1:15 PM CDT Office Visit [facility] Oncology and Hematology - [place] [address] [place] [address] Iron Cunningham MD Chronic anemia [...] Comments Blood Pressure 121/43 05/12/2025 2:14 PM AIRPLANE REFUELER Pulse 64 05/12/2025 2:14 PM AIRPLANE REFUELER Temperature 37 C (98.6 F) 05/12/2025 2:14 PM AIRPLANE REFUELER Respiratory Rate 15 05/12/2025 2:14 PM AIRPLANE REFUELER Oxygen Saturation 93% 05/12/2025 2:14 PM AIRPLANE REFUELER Inhaled Oxygen Concentration - - Weight 79.9 kg (176 lb 3.2 oz) 05/12/2025 2:14 P M AIRPLANE REFUELER Height 177.8 cm (5' 10) 12/16/2024 2:28 PM CDT Body Mass Index 25.28 12/16/2024 2:28 PM CDT Plan of Treatment Upcoming Encounters Date Type Department Care Team (Late st Contact Info) Description 08/11/2025 2:45 PM CDT Office Visit [facility] - [place] [address] [facility] [address] [address] [place] [address] Iron Cunningham MD [address] [facility] [address] [place] [address] Health Maintenance Due Date Last Done Comments [...] Associated Diagnosis Comments CBC WITH AUTODIFFERENTIAL Routine 2024 11:02 AM AIRPLANE REFUELER CBC WITH AUTODIFFERENTIAL Routine 2024 11:47 AM CDT from Last 3 Months Results * CBC WITH AUTODIFFERENTIAL (04/14/2025 11:02 AM AIRPLANE REFUELER) Only the most recent of2 resultswithin the time period is included. Blood Iron Cunningham MD HEMATOLOGY ORDERABLES Final Res ult from Last 3 Months Insurance [employer] HMO [facility] [employer] [facility]
--- OUTSIDE RECORDS SUMMARY | 2025-05-12 16:46 | XMS_ITS | Clinical Summary ---
Author Organization [facility] Address [address] [place] [address] Care Team Providers Care Lamp Inspector Name Role Phone Chandler Geronimo DO [...] Department Care Team Description 04/11/2025 3:00 PM REPAIRER VENEER SHEET Office Visit [facility] [address] [place] [address] [place] [phone] North Myers MD Iron deficiency anemia due to chronic blood loss (Primary Dx) 04/04/2025 Orders Only [facility] Cardiac Catheterization Lab [address] [place] [address] [phone] North Myers MD Paroxysmal atrial fibrillation (HCC) (Primary Dx); Contraindication to anticoagulation therapy 04/01/2025 Orders Only [facility] Cardiac Catheterization Lab [address] [place] [address] North Myers MD Paroxysmal atrial fibrillation (HCC) (Primary Dx); Preop cardiovascular exam 03/29/2025 Orders Only [facility] [address] [place] [address] [place] [phone] Anika Nielsen NP Dyspnea on exertion 03/29/2025 Telephone [facility] [address] [place] [address] [place] [address] [phone] Anika Nielsen NP 03/28/2025 2:30 PM CDT Office Visit [facility] [address] [place] [address] [place] [phone] Anika Nielsen NP Dyspnea on exertion (Primary Dx); Anemia due to chronic kidney disease, on chronic dialysis (HCC); Pulmonary hypertension (HCC); History of recent pneumonia; Encounter for anticoagulation discussion and counseling; Paroxysmal atrial fibrillation (HCC) 03/28/2025 Telephone [facility] [address] [place] [address] [place] [address] [phone] Nroth Myers MD 03/25/2025 Results Follow-Up [facility] [address] [facility] [address] [place] [phone] Corinne Walter RN Transthoracic Echo (TTE) Limited/Followup 03/24/2025 1:00 PM CDT Ancillary Procedure [facility] [address] [place] [address] [address] [place] [phone] Pericardial effusion 03/22/2025 1:30 PM CDT Ancillary Procedure [facility] [address] [place] [address] [address] [place] [address] [phone] Paroxysmal atrial fibrillation (HCC) 03/16/2025 Telephone [facility] [address] [place] [address] [place] [phone] North Myers MD LAAO from Last 3 Months Medical History Medical History Date Comments Hypertension Covid-19 Social History Tobacco Use Types Packs/Day Years Used Date Smoking Tobacco: Former Cigarettes Tobacco Cessation:Counseling Given: Not Answered Sex and Gender Information Value Date Recorded Sex Assigned at Not on file Legal Sex Male 5:28 PM REPAIRER VENEER SHEET Gender Identity Not on file Sexual Orientation Not on file Last Filed Vital Signs Vital Sign Reading Time Taken Comments Blood Pressure 140/60 04/11/2025 2:59 PM REPAIRER VENEER SHEET Pulse 67 04/11/2025 2:59 PM REPAIRER VENEER SHEET Temperature 36.8 C (98.2 F) 06/07/2021 3:50 PM REPAIRER VENEER SHEET Respiratory Rate 16 01/20/2025 1:13 PM CDT Oxygen Saturation 99% 04/11/2025 2:59 PM REPAIRER VENEER SHEET Inhaled Oxygen Concentration - - Weight 80.7 kg (178 lb) 04/11/2025 2:59 PM REPAIRER VENEER SHEET Height 175.3 cm (5' 9) 04/11/2025 2:59 PM REPAIRER VENEER SHEET Body Mass Index 26.29 04/11/2025 2:59 PM REPAIRER VENEER SHEET Plan of Treatment Health Maintenance Due Date [...] Routine 03/24/2025 1:44 PM CDT Pericardial effusion EXTENDED/RETIREMENT HOLTER PATCH (>48 HOURS UP TO 7 [...] PM CDT Narrative 03/24/2025 3:58 PM CDT [facility] Cardiology [address] [facility] [address] [id number] [facility] [address], [place] [address] P:[phone] P:[phone] Echocardiographic Report Patient Name: JAYLEEN VERONICA : 1950 Study Date: 03/24/2025 1:13:29 PM Sex: M Military Analyst: Mildred Pinzon)(CT), [facility] Location: [place] Ref Provider: NORTH MYERS Height(Cm): 175 BSA: [...] FINDINGS: Interpretation Site: Exam was interpreted at [facility]. Left Ventricle: Normal left ventricular systolic function. [...] Procedure Note Amado Estes MD - 03/24/2025 [facility] Cardiology [address] [facility] [address] [address] [facility] [address] [place] [address] P:[phone] P:[phone] Echocardiographic Report Patient Name: JAYLEEN VERONICA : 1950 Study Date: 03/24/2025 1:13:29 PM Sex: M Military Analyst: Mildred Fischer (Robe)(CT), [facility] Location: [place] Ref Provider: NORTH MYERS Height(Cm): 175 BSA: [...] FINDINGS: Interpretation Site: Exam was interpreted at [facility]. Left Ventricle: Normal left ventricular systolic function. [...] Amado Estes MD 03/24/2025 3:57:49 PM CDT us North Myers MD CV ECHO PROCEDURES Final Result * Extended/Long-Term Holter Patch (>48 hours up to 7 days) (03/22/2025 1:35 PM CDT) Anatomical Region Laterality Modality Electrocardiogra phy Narrative 04/05/2025 11:07 AM REPAIRER VENEER SHEET AMBULATORY CONVENTIONAL UNDERWRITER REPORT Patient Name: Jayleen Gamez Date of [...] 1%. Supraventricular ectopy burden less than 1%. North Myers MD 04/05/25 Voice recognition software was used to complete this document, therefore, residential sales executive variances may occur. Procedure Note North Myers MD - 04/05/2025 AMBULATORY CONVENTIONAL UNDERWRITER REPORT Patient Name: Jayleen Gamez Date of [...] than 1%. Supraventricular ectopy burden less than1%. North Myers MD 04/05/25 Voice recognition software was used to complete this document, therefore,residential sales executive variances may occur. North Myers MD CV CARDIAC SERVICES PROCEDURES F inal Result from Last 3 Months Insurance [employer] MEDICARE GOLD Care Teams Lamp Inspector Relationship Specialty Start Date End Date Chandler Geronimo DO PCP - General Family Medicine 06/07/21
--- OUTSIDE RECORDS SUMMARY | 2025-05-12 16:46 | XMS_ITS | Encounter Summary ---
Author Organization [facility] Address [address] [place] [address] Care Team Providers Care Engine Turner Name Role Phone Unavailable Primary Care Provider Unavailabl e Encounter Details Date Type Department Care Team (Late st Contact Info) Description 05/10/2025 External Device Data STL ABSTRACTION Provider, Abstract NO ADDRESS ON FILE Social History Tobacco Use Types Packs/Day Years [...] Description 08/11/2025 2:45 PM CDT Office Visit [facility] Oncology and Hematology - [address] [facility] [place] [facility] [address] [place] [address] Iron Cunningham MD [address] [facility] [address] [place] [address] documented as of this encounter Visit Diagnoses Not on filedocumented in this encounter
--- OUTSIDE RECORDS SUMMARY | 2025-05-12 16:46 | XMS_ITS | Encounter Summary ---
Author Organization [facility] Address [address] [place] [address] Care Team Providers Care Surgical Garment Assembly Supervisor Name Role Phone Chandler Geronimo DO Primary Care Prov ider Encounter Details Date Type Department Care Team (Late st Contact Info) Description 09/10/2024 Orders Only [facility] Health Information Management [address] [place] [address] Scanning, Provider Social History Tobacco Use Types Packs/Day Years Used Date Smoking Tobacco: Never Assessed Sex and Gender Information Value Date Recorded Sex Assigned at Not on file Legal Sex Male 5:28 PM IRON PELLET TESTER Gender Identity Not on file Sexual Orientation [...] on filedocumented in this encounter Care Teams Surgical Garment Assembly Supervisor Relationship Specialty Start Date End Date Chandler Geronimo DO PCP - General Family Medicine 06/07/21 documented as of this encounter
== END 2025-05-12 13:59 | disposition home or self-care (01) ==
LOC: ANHLAB 13:59
PROVIDERS: Visit Provider Internal Medicine Hematology & Oncology
DX: D64.9 Anemia, unspecified (principal)
CPT/HCPCS: 36415; 80047; 85025

== ENCOUNTER 2025-05-20 05:30 | Outpatient (CLI) | payer MEDICARE, MEDICAID, SELFPAY ==
[2025-05-20 06:15] VITALS: BP 131/47; PULSE 85
--- NOTE | 2025-05-20 06:28 | SUR.PREOP ---
Patient brought to GI Lab. Instructions for patient undergoing Capsule Endoscopy reviewed with patient. Consent form signed. Sensor array applied to patient's abdomen and connected to recorded. Patient swallowed capsule [id number] of water infused with Simethicone. Patient instructed they may have clear liquids at 0815 this AM and eat or drink at 1015 this AM. Patient instructed to return to GI Lab at 1500 this afternoon for removal of recording device and to call [phone] or to return to the hospital if any nausea and vomiting or abdominal pain is experienced.
--- NOTE | 2025-05-20 13:50 | SUR.PREOP ---
Patient returned to the GI Lab at 1350 for recorder box removal. Patient voiced no complaints. States they have understanding of instructions. Patient left ambulatory.
== END 2025-05-20 05:31 | disposition home or self-care (01) ==
PROVIDERS: Referring Provider Nurse Practitioner Family; Visit Provider Internal Medicine Gastroenterology
PROC: (CPT 91110; principal; 2025-05-20 07:00)
DX: K92.2 Gastrointestinal hemorrhage, unspecified (principal); N18.6 End stage renal disease; D63.1 Anemia in chronic kidney disease; R19.5 Other fecal abnormalities
CPT/HCPCS: 91110

== ENCOUNTER 2025-05-24 03:40 | Day surgery (SDC) | payer MEDICARE, MEDICAID, SELFPAY ==
[2025-05-23 13:43] VITALS: BMI 25.9
--- OUTSIDE RECORDS SUMMARY | 2025-05-24 03:43 | XMS_ITS | Encounter Summary ---
Author Organization [facility] Address [address] [place] [address] Care Team Providers Care Food Production Manager Name Role Phone Chandler Geronimo DO Primary Care Provide r Encounter Details Date Type Department Care Team (Late st Contact Info) Description 07/16/2021 Therapy Plan [facility] Infusion Services [address] [place] [id number] David Hamilton MD [address] [facility], [address] [id number] Social History Tobacco Use Types Packs/Day Years Used Date Smoking Tobacco: Never Smokeless Tobacco: Never Alcohol Use Standard Drinks/Week Comments Never 0 (1 standard drink = 0.6 oz pur e alcohol) Sex and Gender Information Value Date Recorded Sex Assigned at Male 07/22/2024 2:00 PM BOWLING BALL MOLD ASSEMBLER Legal Sex Male 2:48 PM BOWLING BALL MOLD ASSEMBLER Gender Identity Not on file Sexual Orientation Not on file COVID-19 Exposure Response Date Recorded In the last 10 days, have yo u been in contact with someone who was confirmed or suspected to have Coronavirus/COVID-19? No / Unsure 07/16/2021 3:48 PM BOWLING BALL MOLD ASSEMBLER documented as of this encounter Functional Status * RETIRED Are you deaf or do you have serious difficulty hearing Answer Date of Assessment Author Status No 06/13/2021 2:44 AM BOWLING BALL MOLD ASSEMBLER Activ e * RETIRED Are you blind or do you have serious difficulty seeing, even when wearing glasses? Answer Date of Assessment Author Status No 06/13/2021 2:44 AM BOWLING BALL MOLD ASSEMBLER Activ e * Do you have serious [...] chronic kidney disease, not on chronic dialysis ([facility]HCC [facility])- Primary documented in this encounter Care Teams Food Production Manager Relationship Specialty Start Date End Date Chandler Geronimo DO [address] [place] [phone] PCP - General FAMILY PRACTICE 05/29/21 documented as of this encounter
--- OUTSIDE RECORDS SUMMARY | 2025-05-24 03:43 | XMS_ITS | Encounter Summary ---
Author Organization [facility] Address [address] [place] [address] Care Team Providers Care Executive Meeting Manager Name Role Phone Chandler Geronimo DO Primary Care Provide r Encounter Details Date Type Department Care Team (Late st Contact Info) Description 09/01/2024 MyChart Message Enc [facility] Medical Group Multispecialty Care - [facility] 3 [facility], [facility] [address] [place] [address] David Hamilton MD 3 [facility], [facility] [address] [place] [address] question Social History Tobacco Use Types Packs/Day Years Used Date Smoking Tobacco: Never Smokeless Tobacco: Never Alcohol Use Standard Drinks/Week Comments Never 0 (1 standard drink = 0.6 oz pur e alcohol) [facility] Utilities Answer Date Recorded In [...] declined 10/10/2022 How often do you attend jain or anglican serv ices? Patient declined 10/10/2022 Do you belong to any clubs o r organizations such as jain groups, unions, fraternal or athletic groups, or [...] Recorded Patient Health Questionnaire-2 Score 0 07/26/2024 [facility] [place] of Occupat ional Health - Occupational Stress [...] any time in the past 12 m [facility], were you homeless or living in a detention (including now)? 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
--- OUTSIDE RECORDS SUMMARY | 2025-05-24 03:43 | XMS_ITS | Encounter Summary ---
Author Organization [facility] Healthcare Address [address] [place] [address] Care Team Providers Care Wire Wrapping Machine Operator Name Role Phone Chandler Geronimo DO Primary Care Prov ider Encounter Details Date Type Department Care Team (Late st Contact Info) Description 09/08/2024 Orders Only [facility] Health Information Management [address] [place] [phone] Scanning, Provider Social History Tobacco Use Types Packs/Day Years Used Date Smoking Tobacco: Never Assessed Sex and Gender Information Value Date Recorded Sex Assigned at Not on file Legal Sex Male 5:28 PM POWER ENGINEER Gender Identity Not on file Sexual [...] on filedocumented in this encounter Care Teams Wire Wrapping Machine Operator Relationship Specialty Start Date End Date Chandler Geronimo DO PCP - General Family Medicine 06/07/21 documented as of this encounter
--- OUTSIDE RECORDS SUMMARY | 2025-05-24 03:43 | XMS_ITS | Clinical Summary ---
Author Organization [facility] Address [address] [place] [address] Care Team Providers Care Garnett Room Worker Name Role Phone Unavailable Primary Care Provider Unavailabl e Source Comments [facility],non-owned Affiliates and Associated Physician Practices is amultiple site organization consisting of ambulatory clinics and hospital sitesin [place], [place], [place] and [place]. This disclosure is being madepursuant to the Care Everywhere program and may not contain all information available regarding this patient. Last updated 18.[facility] Allergies No known active allergies Medications * [...] on file Legal Sex Male 11:54 AM JR. SYSTEMS ADMINISTRATOR Gender Identity Not on file Sexual Orientation Not on file Last Filed Vital Signs Vital Sign Reading Time Taken Comments Blood Pressure 113/89 06/17/2011 5:40 PM JR. SYSTEMS ADMINISTRATOR Pulse 67 06/17/2011 9:53 PM JR. SYSTEMS ADMINISTRATOR Temperature 36.3 C (97.3 F) 06/17/2011 5:40 PM JR. SYSTEMS ADMINISTRATOR Respiratory Rate 16 06/17/2011 5:40 PM JR. SYSTEMS ADMINISTRATOR Oxygen Saturation 95% 06/17/2011 9:53 PM JR. SYSTEMS ADMINISTRATOR Inhaled Oxygen Concentration - - Weight 91.6 kg (202 lb) 06/17/2011 5:40 PM JR. SYSTEMS ADMINISTRATOR Height 177.8 cm (5' 10) 06/17/2011 5:40 PM JR. SYSTEMS ADMINISTRATOR Body Mass Index 28.98 06/17/2011 5:40 PM JR. SYSTEMS ADMINISTRATOR Plan of Treatment Health Maintenance Due Date [...] of Phone Billing Address Personal/Family Self 1950 [phone] (Work) [address] [place] [address] A[employer]NA MEDICARE ADV MEDICAID [place] Advance Directives * FULL RESUSCITATION (Latest Code Status on File) Date Activated Date Inactivated Comments 11/20/2010 1:48 PM 11/21/2010 5:57 AM
--- OUTSIDE RECORDS SUMMARY | 2025-05-24 03:43 | XMS_ITS | Clinical Summary ---
Author Organization [facility] Address [address] [place] [address] Care Team Providers Care Staking Engineer Name Role Phone Unavailable Primary Care [...] Encounters Date Type Department Care Team Description 05/13/2025 Orders Only [facility] Oncology and Hematology - [address] Iron Cunningham MD 05/12/2025 2:15 PM PIPE COVERER Office Visit [facility] Oncology and Hematology - [address] Iron Cunningham MD Chronic anemia (Primary Dx) 05/10/2025 External Device Data STL ABSTRACTION Provider, Abstract 05/03/2025 External Device Data STL ABSTRACTION Provider, Abstract 04/15/2025 Abstract [facility] Oncology and Hematology - [address] Iron Cunningham MD 04/15/2025 Orders Only [facility] Oncology and Hematology - [address] Iron Cunningham MD 04/14/2025 Orders Only [facility] Oncology and Hematology - [address] [place] [phone] Iron Cunningham MD Chronic anemia (Primary Dx) 04/12/2025 Telephone [facility] Oncology and Hematology - [address]ha [address] [place] [phone] Iron Cunningham MD Lab questions 04/01/2025 Orders Only [facility] Oncology and Hematology - [address]ha [address] Iron Cunningham MD 03/31/2025 Telephone [facility] Oncology and Hematology - [address] [place] [phone] Iron Cunningham MD Lab Results 03/23/2025 External [...] Comments Blood Pressure 121/43 05/12/2025 2:14 PM PIPE COVERER Pulse 64 05/12/2025 2:14 PM PIPE COVERER Temperature 37 C (98.6 F) 05/12/2025 2:14 PM PIPE COVERER Respiratory Rate 15 05/12/2025 2:14 PM PIPE COVERER Oxygen Saturation 93% 05/12/2025 2:14 PM PIPE COVERER Inhaled Oxygen Concentration - - Weight 79.9 kg (176 lb 3.2 oz) 05/12/2025 2:14 P M PIPE COVERER Height 177.8 cm (5' 10) 12/16/2024 2:28 PM CDT Body Mass Index 25.28 12/16/2024 2:28 PM CDT Plan of Treatment Upcoming Encounters Date Type Department Care Team (Late st Contact Info) Description 08/11/2025 2:45 PM CDT Office Visit [facility] Oncology and Hematology - [address] [place] [address] Iron Cunningham MD [address] [facility] [address] [place] [address] Health Maintenance Due Date Last [...] Diagnosis Comments CBC WITH AUTODIFFERENTIAL Routine 2024 12:59 PM PIPE COVERER CBC WITH AUTODIFFERENTIAL Routine 2024 11:02 AM PIPE COVERER CBC WITH AUTODIFFERENTIAL Routine 2024 11:47 AM CDT from Last 3 Months Results * CBC WITH AUTODIFFERENTIAL (05/12/2025 12:59 PM PIPE COVERER) Only the most recent of3 resultswithin the time period is included. Blood Iron Cunningham MD HEMATOLOGY ORDERABLES Final Res ult from Last 3 Months Insurance AETNA O [facility] Address: [facility] [id number] [id number] AETNA HMO MCR
--- OUTSIDE RECORDS SUMMARY | 2025-05-24 03:43 | XMS_ITS | Clinical Summary ---
Author Organization [facility] Address [address] [place] [address] Care Team Providers Care Water Regulator And Valve Repairer Name Role Phone Chandler Geronimo DO [...] by mouth daily. Active epoetin rosette-epbx (RETACRIT) 04693 Units/mL injectionIndications:E nd Stage Renal Disease on Hemodialysis Inject 1 mL (10,000 Units total) into the skin 3 (three) times a week. Indications: Intermediate Kidney Failure Treated with Hemodialysis On Friday, Friday and Friday with hemodialysis 12 mL 025 Active allopurinol (ZYLOPRIM) 100 MG tabletIndications:Hype ruricemia Take 1 tablet (100 mg total) by mouth 3 (three) times a week. On Friday, Friday and Friday after hemodialysis 12 tablet 025 Active furosemide (LASIX) 40 MG tabletIndications:ESRD (end stage renal disease) on dialysis ([facility]) Take 3 tablets (120 mg total) by mouth 2 (two) times a day, 3 (three) days a week. Take 3 tablets (120 mg total) two times a day on non-dialysis days (Friday, Friday, and Friday) 96 tablet 025 Active B xzgtxlw-T-dbido acid 0.8 mg (DIALYVITE/NEPHRO-ROMINA ) Tab tabletIndications:End stage renal disease ([facility]) Take 1 tablet by mouth daily. 30 [...] stage 5, GFR less than 15 ml/min ([facility]),Secondary hyperparathyroidism (HHS/HCC),Primary hypertension,Hyperkale abbie Take 1 tablet (4 mg total) by mouth nightly at bedtime. 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 Edema, unspecified type 06/28/2021 Acute kidney injury 05/29/2021 Resolved Problems Problem Noted Date Diagnosed Date Resolved Date Pneumonia 06/13/2021 06/19/2021 Encounters Date Type Department Care Team Description 03/28/2025 Orders Only [facility], [place] [id number] Non-Staff, Provider from Last 3 Months Immunizations Immunization Administration Dates Next Due Influenza (Generic) 05/03/2024,02/18/2014 Influenza Adult (Generic) 04/17/2023,04/05/2021 PFIZER COVID-19 (ORIGINAL FO RMULATION, PURPLE CAP) mRNA, LNP-S, PF, 30 MCG/0.3 ML DOSE 12/22/2021,10/04/2020 Pneumococcal (Pneumovax 23) 02/19/2024, 4,06/20/2013 Pneumococcal (Prevnar 13) 11/26/2017 Pneumococcal (Prevnar 20) 05/03/2024 Tdap (Generic) 08/27/2016,02/25/2016 Zoster (Zostavax) 25874 Unt/0.65Ml 02/25/2016 Family History Medical History Relation [...] drink = 0.6 oz pur e alcohol) [facility] Utilities Answer Date Recorded In the past 12 months has e [employer], gas, oil, or water [email or web address] threatened to shut off services in your [...] How often do you attend shinto or yazidi serv ices? Patient declined 10/10/2022 Do you [...] Recorded Patient Health Questionnaire-2 Score 0 07/26/2024 [facility] of Occupat ional Health - [...] any time in the past 12 m [facility], were you homeless or living in a senior living (including now)? 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 Not on file [...] (10 Years) Discontinued 05/29/2024, 05/28/2024 PHQ-2 (Physician Cass) Completed 07/26/2024 Colorectal Cancer Screening FIT/FOBT (1 [...] remain independent in ADLs upon discharge from [facility] General Aline Russell, RN Health - patient able to perform ADLs independently Lifestyle No El Vaughn tamping machine operator - family caregiver with be involved in care transitions and discharge planning Lifestyle No Abby Eng RN Procedures Procedure Name Priority Date/Time Associated Diagnosis Comments OCCULT BLOOD, FECES Routine 08/28/2024 1 1:48 AM CDT HEMOGLOBIN, GLYCOSYLATED Routine 08/25/2024 6:44 AM CDT COLONOSCOPY Routine 05/28/2024 12:12 PM CASING MACHINE OPERATOR LIPID PANEL Routine 10/12/2022 7:06 AM CDT HEPATITIS PANEL,ACUTE Routine 05/30/2021 1:20 PM CASING MACHINE OPERATOR from Last 3 Months or Most Recently Relevant to Health Maintenance Results * (ABNORMAL) OCCULT BLOOD, FECES (08/28/2024 11:48 AM CDT) OCCULT BLOOD FECAL POSITIVE(A ) NEGATIVE 08/28/2024 12:57 PM CDT [facility] STOOL SPECIMEN / Unknown 08/28/2024 11:48 AM CDT David Hamilton MD BODY FLUIDS AND STOOLS ORDERAB LES Final Result [facility] [address] [place] [address], [place] [phone] * (ABNORMAL) HEMOGLOBIN, GLYCOSYLATED (08/25/2024 6:44 AM CDT) [facility] HGB A1C 5.9(H) <5.7 % 08/25/2024 9:03 AM CDT [facility] Comment: ADA GUIDELINES 2010 5.7 TO 6.4% INCREASED RISK OF DIABETES > OR = 6.5% CONSISTENT WITH DIABETES ESTIMATED AVG GLUCOSE 123 mg/dL 08/25/2024 9:03 AM CDT [facility] 08/25/2024 6:44 AM CDT Joann Sherman NP LABORATORY Final Result [facility] [address] [place] [address], [place] [phone] * (ABNORMAL) LIPID PANEL (10/12/2022 7:06 AM CDT) [facility] CHOLESTEROL 110 <200 MG/DL 10/12/2022 8:01 AM CDT [facility] TRIGLYCERIDES 134 <150 MG/DL 10/12/2022 8:01 AM CDT [facility] HDL 35(L) >40.0 MG/DL 10/12/2022 8:01 AM T [facility] LDL (CALCULATED) 48 <100 MG/DL 10/13/19 8:01 AM CDT [facility] NON HDL CHOLESTEROL 75 <130 MG/DL 10/12 8:01 AM T [facility] CHOL/HDL RATIO 3.1 0.0 - 4.5 10/12/2022 8:01 AM T [facility] VLDL CALCULATION 27 5 - 55 MG/DL 10/12/2022 8:01 AM T [facility] LIPID INTERPRETATION 10/12/2022 8:01 AM T [facility] Comment: NIH CONCENSUS REPORT RECOMMENDATIONS: ADULT CHILD LOW RISK: CHOLESTEROL <200 <170 TRIGLYCERIDE <150 --- HDL >=60 --- LDL <100 <110 BORDERLINE: CHOLESTEROL 200-239 170-199 TRIGLYCERIDE 150-199 --- HDL 40-59 --- LDL 100-159 110-129 HIGH RISK: CHOLESTEROL >=240 >=200 TRIGLYCERIDE >=200 --- HDL <40 --- LDL >=160 >=130 10/12/2022 7:06 AM CDT us Josseline Tabares MD LABORATORY Final Result [facility] [address] [place] [address], * HEPATITIS PANEL,ACUTE (05/30/2021 1:20 PM CASING MACHINE OPERATOR) HEPATITIS B SURFACE AG NON-REACTI VE NON-REACTI VE 05/30/2021 3:16 PM CASING MACHINE OPERATOR [facility] HEP B CORE IGM NON-REACTI VE NON-REACTI VE 05/30/2021 3:16 PM CASING MACHINE OPERATOR [facility] HAV IGM NON-REACTI VE NON-REACTI VE 05/30/2021 3:16 PM CASING MACHINE OPERATOR [facility] HEPATITIS C AB NON-REACTI VE NON-REACTI VE 05/30/2021 3:16 PM CASING MACHINE OPERATOR [facility] 05/30/2021 1:20 PM CASING MACHINE OPERATOR us David Hamilton MD LABORATORY Final Result [facility] [address] [place] [address], [place] [phone] from Last 3 Months or Most Recently [...] 11:22 PM 06/03/2021 3:03 PM Care Teams Water Regulator And Valve Repairer Relationship Specialty Start Date End Date Chandler Geronimo DO [address] [place] [phone] PCP - General FAMILY PRACTICE 05/29/21
--- OUTSIDE RECORDS SUMMARY | 2025-05-24 03:43 | XMS_ITS | Encounter Summary ---
Author Organization [facility] Address [address] [place] [address] Care Team Providers Care Product Promoter Retail Pet Name Role Phone Chandler Geronimo DO Primary Care Provide r Encounter Details Date Type Department Care Team (Late st Contact Info) Description 07/28/2024 YourMechanic Message Enc [facility] [address] [phone] Filippo, [facility] Provider Orders Social History Tobacco Use Types Packs/Day Years Used Date Smoking Tobacco: Never Smokeless Tobacco: Never Alcohol Use Standard Drinks/Week Comments Never 0 (1 standard drink = 0.6 oz pur e alcohol) [facility] Utilities Answer Date Recorded In the past 12 months has [facility] [employer], oil, or water [email or web address] threatened to shut off services in your [...] declined 10/10/2022 How often do you attend yazidi or jehovah's witness serv ices? Patient declined 10/10/2022 Do you belong to any clubs o r organizations such as yazidi groups, unions, fraternal or athletic groups, or [...] Recorded Patient Health Questionnaire-2 Score 0 07/26/2024 [facility] of Occupat ional Health - Occupational Stress [...] any time in the past 12 m [facility], were you homeless or living in a custodial (including now)? 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
--- OUTSIDE RECORDS SUMMARY | 2025-05-24 03:43 | XMS_ITS | Encounter Summary ---
Author Organization [facility] Address [address] [place] [address] Care Team Providers Care Asbestos Pipe Supervisor Name Role Phone Chandler Geronimo DO Primary Care Prov ider Encounter Details Date Type Department Care Team (Late st Contact Info) Description 09/10/2024 Orders Only [facility] Health Information Management [address] [place] [address] Scanning, Provider Social History Tobacco Use Types Packs/Day Years Used Date Smoking Tobacco: Never Assessed Sex and Gender Information Value Date Recorded Sex Assigned at Not on file Legal Sex Male 5:28 PM TECHNICIAN HELPER INSTRUMENT Gender Identity Not on file Sexual Orientation [...] on filedocumented in this encounter Care Teams Asbestos Pipe Supervisor Relationship Specialty Start Date End Date Chandler Geronimo DO PCP - General Family Medicine 06/07/21 documented as of this encounter
--- OUTSIDE RECORDS SUMMARY | 2025-05-24 03:43 | XMS_ITS | Encounter Summary ---
Author Organization [facility] Address [address] [place] [address] Care Team Providers Care Assistant To The Ceo Name Role Phone Chandler Geronimo DO Primary Care Provide r Encounter Details Date Type Department Care Team (Late st Contact Info) Description 01/10/2022 Therapy Plan [facility] Infusion Services [address] [place] [phone] David Hamilton MD [address] [facility], [address] [id number] Social History Tobacco Use Types Packs/Day Years [...] Assigned at Male 07/22/2024 2:00 PM GENERATOR MECHANIC Legal Sex Male 2:48 PM GENERATOR MECHANIC Gender Identity Not on file Sexual Orientation [...] Assessment Author Status No 06/13/2021 2:44 AM GENERATOR MECHANIC Activ e * RETIRED Are you blind or do you have serious difficulty seeing, even when wearing glasses? Answer Date of Assessment Author Status No 06/13/2021 2:44 AM GENERATOR MECHANIC Activ e * Do you have serious [...] documented as of this encounter Care Teams Assistant To The Ceo Relationship Specialty Start Date End Date Chandler Geronimo DO [address] [place] [phone] PCP - General FAMILY PRACTICE 05/29/21 documented as of this encounter
--- OUTSIDE RECORDS SUMMARY | 2025-05-24 03:43 | XMS_ITS | Clinical Summary ---
Author Organization [facility] Address [address] [place] [address] Care Team Providers Care Sales Account Executive Name Role Phone Chandler Geronimo DO Primary [...] Department Care Team Description 04/11/2025 3:00 PM HYDRODYNAMICS PROFESSOR Office Visit [facility] Cardiology [address] [place] [address] [place] [phone] [place] MD Iron deficiency anemia due to chronic blood loss (Primary Dx) 04/04/2025 Orders Only [facility] Cardiac Catheterization Lab [address] [place] [phone] North Myers MD Paroxysmal atrial fibrillation (HCC) (Primary Dx); Contraindication to anticoagulation therapy 04/01/2025 Orders Only [facility] Cardiac Catheterization Lab [address] [place] [address] [place] Myers MD Paroxysmal atrial fibrillation (HCC) (Primary Dx); Preop cardiovascular exam 03/29/2025 Orders Only [facility] Cardiology [address] [place] [address] [place] [phone] Anika Nielsen NP Dyspnea on exertion 03/29/2025 Telephone [facility] Cardiology [address] [place] [address] [place] [phone] Anika Nielsen NP 03/28/2025 2:30 PM CDT Office Visit [facility] Cardiology [address] [place] [address] [place] [phone] Anika Nielsen NP Dyspnea on exertion (Primary Dx); Anemia due to chronic kidney disease, on chronic dialysis (HCC); Pulmonary hypertension (HCC); History of recent pneumonia; Encounter for anticoagulation discussion and counseling; Paroxysmal atrial fibrillation (HCC) 03/28/2025 Telephone [facility] Cardiology [address] [place] [address] [place] [phone] North Myers MD 03/25/2025 Results Follow-Up [facility] Cardiology [address] [facility] [address] [place] [phone] Corinne Walter RN Transthoracic Echo (TTE) Limited/Followup 03/24/2025 1:00 PM CDT Ancillary Procedure [facility] Cardiology [address] [place] [address] [address] [place] [phone] Pericardial effusion 03/22/2025 1:30 PM CDT Ancillary Procedure [facility] Cardiology [address] [place] [address] [address] [place] [phone] Paroxysmal atrial fibrillation (HCC) 03/16/2025 Telephone [facility] Cardiology [address] [place] [address] [address] [place] [phone] North Myers MD LAAO from Last 3 Months Medical History Medical History Date Comments Hypertension Covid-19 Social History Tobacco Use Types Packs/Day Years Used Date Smoking Tobacco: Former Cigarettes Tobacco Cessation:Counseling Given: Not Answered Sex and Gender Information Value Date Recorded Sex Assigned at Not on file Legal Sex Male 5:28 PM HYDRODYNAMICS PROFESSOR Gender Identity Not on file Sexual Orientation Not on file Last Filed Vital Signs Vital Sign Reading Time Taken Comments Blood Pressure 140/60 04/11/2025 2:59 PM HYDRODYNAMICS PROFESSOR Pulse 67 04/11/2025 2:59 PM HYDRODYNAMICS PROFESSOR Temperature 36.8 C (98.2 F) 06/07/2021 3:50 PM HYDRODYNAMICS PROFESSOR Respiratory Rate 16 01/20/2025 1:13 PM CDT Oxygen Saturation 99% 04/11/2025 2:59 PM HYDRODYNAMICS PROFESSOR Inhaled Oxygen Concentration - - Weight 80.7 kg (178 lb) 04/11/2025 2:59 PM HYDRODYNAMICS PROFESSOR Height 175.3 cm (5' 9) 04/11/2025 2:59 PM HYDRODYNAMICS PROFESSOR Body Mass Index 26.29 04/11/2025 2:59 PM HYDRODYNAMICS PROFESSOR Plan of Treatment Health Maintenance Due Date [...] Routine 03/24/2025 1:44 PM CDT Pericardial effusion EXTENDED/PRISON HOLTER PATCH (>48 HOURS UP TO 7 [...] PM CDT Narrative 03/24/2025 3:58 PM CDT [facility] Cardiology [address] [facility] [address] [phone] [facility] [address], [place] [address] P:[phone] P:[phone] Echocardiographic Report Patient Name: JAYLEEN VERONICA : 1950 Study Date: 03/24/2025 1:13:29 PM Sex: M Cable Driller: Mildred Pinzon)(CT), [facility] Location: [place] Ref Provider: [facility] Height(Cm): 175 BSA: [...] FINDINGS: Interpretation Site: Exam was interpreted at [facility]. Left Ventricle: Normal left ventricular systolic function. [...] Procedure Note Amado Estes MD - 03/24/2025 [facility] Cardiology [address] [facility] [address], [place] [address] [address] [facility] [address], [place] [address] P:[phone] P:[phone] Echocardiographic Report Patient Name: JAYLEEN VERONICA : 1950 Study Date: 03/24/2025 1:13:29 PM Sex: M Cable Driller: Mildred Fischer (Robe)(CT), [facility] Location: [place] Ref Provider: NOR[facility] MYERS Height(Cm): 175 BSA: [...] FINDINGS: Interpretation Site: Exam was interpreted at [facility]. Left Ventricle: Normal left ventricular systolic function. [...] MD CV ECHO PROCEDURES Final Result * Extended/Skilled Nursing Holter Patch (>48 hours up to 7 days) (03/22/2025 1:35 PM CDT) Anatomical Region Laterality Modality Electrocardiogra phy Narrative 04/05/2025 11:07 AM HYDRODYNAMICS PROFESSOR AMBULATORY EMISSIONS TESTING TECHNICIAN REPORT Patient Name: Jayleen Gamez Date of [...] was used to complete this document, therefore, research study assistant variances may occur. Procedure Note North Myers MD - 04/05/2025 AMBULATORY EMISSIONS TESTING TECHNICIAN REPORT Patient Name: Jayleen Gamez Date of [...] software was used to complete this document, therefore,research study assistant variances may occur. North Myers MD CV CARDIAC SERVICES PROCEDURES F inal Result from Last 3 Months Insurance [employer] MEDICARE GOLD Care Teams Sales Account Executive Relationship Specialty Start Date End Date Chandler Geronimo DO PCP - General Family Medicine 06/07/21
--- OUTSIDE RECORDS SUMMARY | 2025-05-24 03:43 | XMS_ITS | Encounter Summary ---
Author Organization [facility] Address [address] [place] [address] Care Team Providers Care Miller Helper Distillery Name Role Phone Chandler Geronimo DO Primary Care Provide r Reason for Referral * Surgical (Routine) - New Request Specialty Diagnoses / Procedures Referred By Hazel t Referred To Contact Diagnoses ESRD (end stage renal disease) on dialysis ([facility]) Procedures Case request operating room: BRACHIAL CEPHALIC ARTERIOVENOUS FISTULA OR TRANSPOSITION BASILIC VEIN (LEFT ARM) Layton Herrera MD [facility]. [facility] [address] [place] [address] Phone: tel: fax: Referral ID Status Reason Start Date Expiration Date V isits Requested Visits Authorized [id number] New Request 06/01/2024 06/01/2025 1 1 UCTION CONTROL ANALYST Encounter Details Date Type Department Care Team (Late st Contact Info) Description 06/01/2024 Prep for Procedure [facility] [place] [address] [place] [address] Layton Herrera MD [facility]. [facility] [address] [place] [address] Social History Tobacco Use Types Packs/Day Years Used Date Smoking Tobacco: Never Smokeless Tobacco: Never Alcohol Use Standard Drinks/Week Comments Never 0 (1 standard drink = 0.6 oz pur e alcohol) [facility] Utilities Answer Date Recorded In the [...] How often do you attend druze or quaker serv ices? Patient declined 10/10/2022 [...] Recorded Patient Health Questionnaire-2 Score 0 01/05/2024 [facility] of Occupat ional Health - Occupational Stress [...] any time in the past 12 m [facility], were you homeless or living in a correction (including now)? 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 Author Patient will return to prior living situation and remain independent in ADLs upon discharge from hospital General Aline Russell, RN Health - patient able to perform ADLs independently Lifestyle No El Vaughn, seam stay stitcher - family caregiver with be involved in care transitions and discharge planning Lifestyle No Abby Eng RN documented as of this encounter Visit Diagnoses Diagnosis ESRD (end stage renal disease) on dialysis ([facility])- Primary End stage renal disease documented in this encounter Additional Health Concerns Assessment Noted Time PHQ-9 Depression Total Score: 0 03/14/20 22 3:10 PM CDT documented as of this encounter Care Teams Miller Helper Distillery Relationship Specialty Start Date End Date Chandler Geronimo DO [address] [place] [phone] PCP - General FAMILY PRACTICE 05/29/21 documented as of this encounter
--- OUTSIDE RECORDS SUMMARY | 2025-05-24 03:43 | XMS_ITS | Encounter Summary ---
Author Organization [facility] Address [address] [place] [address] Care Team Providers Care Purchasing Administrative Assistant Name Role Phone Chandler Geronimo DO Primary Care Provide r Encounter Details Date Type Department Care Team (Late st Contact Info) Description 10/21/2022 Therapy Plan [facility] Infusion Services [address] [place] [phone] David Hamilton MD [address] [facility], [place] [phone] Social History Tobacco Use Types Packs/Day Years [...] How often do you attend sabianism or gnosticism serv ices? Patient declined 10/10/2022 [...] Recorded Patient Health Questionnaire-2 Score 0 10/21/2022 [facility] of Occupat ional Health - Occupational Stress [...] Sex Assigned at Male 07/22/2024 2:00 PM SURFACE WATER TECHNICIAN Legal Sex Male 2:48 PM SURFACE WATER TECHNICIAN Gender Identity Not on file Sexual [...] PM BIAT Beena Scherer RN Active documented as of [...] documented as of this encounter Care Teams Purchasing Administrative Assistant Relationship Specialty Start Date End Date Chandler Geronimo DO [address] [place] [phone] PCP - General FAMILY PRACTICE 05/29/21 documented as of this encounter
[2025-05-24 11:43] VITALS: BP 106/25; PULSE 66; RESP 18; TEMP 36.5; O2SAT 92
[2025-05-24] MEDS: SODIUM CHLORIDE 0.9% IV 500 ML 10 ML IV CONT (12:02)
--- NOTE | 2025-05-24 12:17 | PM.HPGS ---
History of Present Illness History of Present Illness Consent: Risks, benefits, and alternatives have been discussed and questions answered. Patient agrees to proceed with procedure. Chief complaint: Melena, Other fecal abnormalities Narrative: Bulmaro Gamez is a 75 year old male with recurrent anemia and gib, recent SBCE noted active bleeding in proximal small bowel, here with EGD to assess if still bleeding. Review of Systems Review of Systems: All systems reviewed & are unremarkable except as noted in HPI and below PMFSH Past Medical History Medical History Diastolic congestive heart failure ANCA-associated vasculitis Hyperlipidemia Hyperuricemia Diabetes Hypertension Atrial fibrillation Anemia Pleural effusion Hypotension Acute on chronic anemia Pericardial effusion History of end stage renal disease Surgical History Surgical History History of back surgery H/O bilateral cataract extraction Family History Family History Father Myocardial infarct Sibling Myocardial infarct Mother Dementia Social History Social History Smoking status: Former smoker Additional smoking assessment comments: quit many years ago Alcohol intake: never Substance use: never Lack of Transportation: No Lack of Food: Never True Current Housing: I Have Housing Concerned About Future Housing: No Difficulty Paying Gas/Electric Bills: No Difficulty Paying for Meds: No Currently Unemployed: No Education: High School Diploma/GED Difficulty w/ Childcare or Family Care: No Living arrangements: with family Spiritual care concerns: No Meds Home Medications and Allergies Home Medications ?Medication ?Instructions ?Recorded ?Confirmed ?Type allopurinol 100 mg tablet See Rx Instructions .Route .COMPLEX 09/06/24 05/24/25 History amiodarone 400 mg tablet 200 mg PO DAILY 09/06/24 05/24/25 History calcitriol 0.25 mcg capsule 0.25 mcg PO DAILY 09/06/24 05/24/25 History doxazosin 4 mg tablet (Cardura) 4 mg PO QPM 09/06/24 05/24/25 History furosemide 40 mg tablet 120 mg PO BID 09/06/24 05/24/25 History pantoprazole 40 mg tablet,delayed 40 mg PO QAM 09/06/24 05/24/25 History release (Protonix) aspirin 81 mg tablet,delayed 81 mg PO QAM #30 tabs 09/11/24 05/24/25 Rx release metoprolol tartrate 25 mg tablet See Rx Instructions .Route 03/09/25 05/24/25 Rx .COMPLEX #90 tabs atorvastatin 20 mg tablet 80 mg PO EVENING 04/19/25 05/24/25 History ferrous sulfate 325 mg (65 mg 325 mg PO DAILY 04/19/25 05/24/25 History iron) tablet (iron) sodium bicarbonate 650 mg tablet 650 mg PO DAILY PRN stomach upset 04/19/25 05/23/25 History vitamin B complex-vitamin C-folic See Rx Instructions .Route 05/11/25 05/24/25 Rx acid 0.8 mg tablet (Dialyvite 800) .COMPLEX #30 tabs Allergies Allergy/AdvReac Type Severity Reaction Status Date / Time No Known Allergies Allergy Verified 05/24/25 11:41 Vital Signs Vital Signs - 24 hr 05/24/25 11:43 Temperature 97.7 F Pulse Rate 66 Respiratory Rate 18 Blood Pressure 106/25 L Pulse Oximetry 92 Oxygen Delivery Room Air Exam Const: General: comfortable and no acute distress HENMT: Face/Nose/Sinus: Normal nares present Resp: Auscultation: clear to auscultation bilaterally Cardio: Rate: regular rate Rhythm: regular rhythm GI: Inspection: non-distended GI Palp: Yes Soft to palpation Assessment and Plan Assessment and plan (1) Melena: Code(s): K92.1 - Melena Status: Acute Assessment and Plan: egd (2) Acute on chronic anemia: Code(s): D64.9 - Anemia, unspecified Status: Acute (3) ESRD (end stage renal disease): Code(s): N18.6 - End stage renal disease Status: Acute
--- NOTE | 2025-05-24 12:20 | WPDANESEPPF ---
Anes - Initial Pre Proc Eval Procedure: Operation Date: 05/24/25 12:30 Proposed Procedures p Push Endoscopy - Shemar Pool MD Date/Time: 05/24/25 12:20 Surgeon: Shemar Pool MD Pre Op Diagnosis: Melena, Other fecal abnormalities Patient Data Age: 75 Gender: M Height: 1.73 m Weight: 79.9 kg Last Vital Signs Temp 97.7 F 05/24/25 11:43 Pulse 66 05/24/25 11:43 Resp 18 05/24/25 11:43 BP 106/25 L 05/24/25 11:43 Pulse Ox 92 05/24/25 11:43 O2 Del Method Room Air 05/24/25 11:43 Allergies Allergy/AdvReac Type Severity Reaction Status Date / Time No Known Allergies Allergy Verified 05/24/25 11:41 Home Medications ?Medication ?Instructions ?Recorded ?Confirmed ?Type allopurinol 100 mg tablet See Rx Instructions .Route .COMPLEX 09/06/24 05/24/25 History amiodarone 400 mg tablet 200 mg PO DAILY 09/06/24 05/24/25 History calcitriol 0.25 mcg capsule 0.25 mcg PO DAILY 09/06/24 05/24/25 History doxazosin 4 mg tablet (Cardura) 4 mg PO QPM 09/06/24 05/24/25 History furosemide 40 mg tablet 120 mg PO BID 09/06/24 05/24/25 History pantoprazole 40 mg tablet,delayed 40 mg PO QAM 09/06/24 05/24/25 History release (Protonix) aspirin 81 mg tablet,delayed 81 mg PO QAM #30 tabs 09/11/24 05/24/25 Rx release metoprolol tartrate 25 mg tablet See Rx Instructions .Route 03/09/25 05/24/25 Rx .COMPLEX #90 tabs atorvastatin 20 mg tablet 80 mg PO EVENING 04/19/25 05/24/25 History ferrous sulfate 325 mg (65 mg 325 mg PO DAILY 04/19/25 05/24/25 History iron) tablet (iron) sodium bicarbonate 650 mg tablet 650 mg PO DAILY PRN stomach upset 04/19/25 05/23/25 History vitamin B complex-vitamin C-folic See Rx Instructions .Route 12/10/25 12/23/25 Rx acid 0.8 mg tablet (Dialyvite 800) .COMPLEX #30 tabs Patient hx anesthesia problems: none Family hx anesthesia problems: none Results Review: All pre-operative results and documents have been reviewed as part of the pre-operative evaluation. COUNT INCLUDES [facility] Past Medical History Medical History Diastolic congestive heart failure ANCA-associated vasculitis Hyperlipidemia Hyperuricemia Diabetes Hypertension Atrial fibrillation Anemia Pleural effusion Hypotension Acute on chronic anemia Pericardial effusion History of end stage renal disease Surgical History Surgical History History of back surgery H/O bilateral cataract extraction Family History Family History Father Myocardial infarct Sibling Myocardial infarct Mother Dementia Social History Social History Smoking status: Former smoker Additional smoking assessment comments: quit many years ago Alcohol intake: never Substance use: never Lack of Transportation: No Lack of Food: Never True Current Housing: I Have Housing Concerned About Future Housing: No Difficulty Paying Gas/Electric Bills: No Difficulty Paying for Meds: No Currently Unemployed: No Education: High School Diploma/GED Difficulty w/ Childcare or Family Care: No Living arrangements: with family Spiritual care concerns: No Anes - Eval Final PreProcedure Day of Procedure 05/24/25 12:20 Patient weight: normal Lungs: normal air movement Airway: Mallampati scale class II and special considerations (Upper and lower dentures. ) Neurological: alert and oriented Last oral intake: >/= 8 hours ASA classification: IV Emergent: no Anesthetic plan: proceed Anesthesia type and monitoring: general GIVS and standard monitoring Results Review: All pre-operative results and documents have been reviewed as part of the pre-operative evaluation. ESRD on HD, afib, hyperlipidemia, melena, hx of heme pos stool. Pt w abn capsule study, now for enteroscopy. Full discussion w pts daughter about his critical condition and all R/B/A and they wish to proceed. Informed Consent: The patient's anesthetic plan and its attendant risks and benefits were discussed with the patient/family/POA. Questions were solicited and answers provided to the satisfaction of the patient/family/POA.
[2025-05-24 12:42] VITALS: BP 103/25; PULSE 63; RESP 18; O2SAT 98
[2025-05-24 12:52] VITALS: BP 100/26; PULSE 64; RESP 16; O2SAT 98
[2025-05-24 13:02] VITALS: BP 111/35; PULSE 66; RESP 17; O2SAT 100
== END 2025-05-24 13:10 | disposition home or self-care (01) ==
PROVIDERS: Referring Provider Internal Medicine Gastroenterology; Visit Provider Internal Medicine Gastroenterology
PROC: 0DJ08ZZ Inspection of Upper Intestinal Tract, Via Natural or Artificial Opening Endoscopic (ICD-10-PCS; CPT 43270; principal; 2025-05-24 12:30)
DX: Q27.33 Arteriovenous malformation of digestive system vessel (principal); E11.9 Type 2 diabetes mellitus without complications
CPT/HCPCS: 43270; 82948; J2003; J2704; J7040

== ENCOUNTER 2025-05-25 07:47 | Emergency (ER) | payer MEDICARE, MEDICAID, SELFPAY ==
[2025-05-25] VITALS (15 sets, daily range): BP systolic 126–157; BP diastolic 40–105; PULSE 65–87; RESP 16–24; TEMP 36.4–36.8; O2SAT 91–100
--- NOTE | ~2025-05-25 | XR_ITS ---
EXAMINATION: XR chest 2V DATE: 05/25/2025 10:17 INDICATION: Cough and shortness of breath TECHNIQUE: frontal and lateral views of the chest were obtained. COMPARISON: Chest radiograph dated 05/10/2025 FINDINGS: No significant interval change in opacities in the bilateral mid and lower lung zones which includes small bilateral pleural effusions with associated atelectasis and/or pneumonia. Mildly enlarged cardiac silhouette. There are bridging syndesmophytes throughout the thoracic spine with squaring of the a nterior vertebral bodies suspicious for ankylosing spondylitis. IMPRESSION: 1. Small bilateral pleural effusions with associated atelectasis and/or pneumonia in the mid and lower lung zones. 2. Large cardiac silhouette which could be due to cardiomegaly or pericardial effusion is evident on CT from 09/06/2024. 3. Bridging syndesmophytes throughout the thoracic spine suspicious for ankylosing spondylitis. Reviewed, dictated and finalized at location A. WARE PRODUCT MANAGER IMPRESSION: 1. Small bilateral pleural effusions with associated atelectasis and/or pneumon ia in the mid and lower lung zones. 2. Large cardiac silhouette which could be due to cardiomegaly or pericardial e ffusion is evident on CT from 09/06/2024. 3. Bridging syndesmophytes throughout the thoracic spine suspicious for ankylos ing spondylitis.
--- OUTSIDE RECORDS SUMMARY | 2025-05-25 07:50 | XMS_ITS | Encounter Summary ---
Author Organization [facility] Healthcare Address [address] [place] [address] Care Team Providers Care Professor Of Oceanography Name Role Phone Chandler Geronimo DO Primary Care Prov ider Encounter Details Date Type Department Care Team (Late st Contact Info) Description 09/10/2024 Orders Only [facility] Health Information Management [address] [place] [id number] Scanning, Provider Social History Tobacco Use Types Packs/Day Years Used Date Smoking Tobacco: Never Assessed Sex and Gender Information Value Date Recorded Sex Assigned at Not on file Legal Sex Male 5:28 PM MACHINE MOLDER SQUEEZE Gender Identity Not on file Sexual Orientation [...] on filedocumented in this encounter Care Teams Professor Of Oceanography Relationship Specialty Start Date End Date Chandler Geronimo DO PCP - General Family Medicine 06/07/21 documented as of this encounter
--- OUTSIDE RECORDS SUMMARY | 2025-05-25 07:50 | XMS_ITS | Encounter Summary ---
Author Organization [facility] Address [address] [place] [address] Care Team Providers Care Registered Representative Name Role Phone Chandler Geronimo DO Primary Care Provide r Reason for Referral * Surgical (Routine) - New Request Specialty Diagnoses / Procedures Referred By Hazel t Referred To Contact Diagnoses ESRD (end stage renal disease) on dialysis ([facility]) Procedures Case request operating room: BRACHIAL CEPHALIC ARTERIOVENOUS FISTULA OR TRANSPOSITION BASILIC VEIN (LEFT ARM) Layton Herrera MD [facility]. [facility] [address] [place] [address] Phone: tel: fax: Referral ID Status Reason Start Date Expiration Date V isits Requested Visits Authorized [id number] New Request 06/01/2024 06/01/2025 1 1 NDENCY COUNSELOR Encounter Details Date Type Department Care Team (Late st Contact Info) Description 06/01/2024 Prep for Procedure [facility] [place] [address] [place] [address] Layton Herrera MD [facility]. [facility] [address] [place] [address] Social History Tobacco Use Types Packs/Day Years Used Date Smoking Tobacco: Never Smokeless Tobacco: Never Alcohol Use Standard Drinks/Week Comments Never 0 (1 standard drink = 0.6 oz pur e alcohol) [facility] Utilities Answer Date Recorded In [...] How often do you attend druze or jainism serv ices? 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 Author Patient will return to prior living situation and remain independent in ADLs upon discharge from hospital General Aline Russell, RN Health - patient able to perform ADLs independently Lifestyle No El Vaughn, barrel cutter - family caregiver with be involved in care transitions and discharge planning Lifestyle No Abby Eng RN documented as of this encounter Visit Diagnoses Diagnosis ESRD (end stage renal disease) on dialysis ([facility])- Primary End stage renal disease documented in this encounter Additional Health Concerns Assessment Noted Time PHQ-9 Depression Total Score: 0 03/14/20 22 3:10 PM CDT documented as of this encounter Care Teams Registered Representative Relationship Specialty Start Date End Date Chandler Geronimo DO [address] [place] [phone] PCP - General FAMILY PRACTICE 05/29/21 documented as of this encounter
--- OUTSIDE RECORDS SUMMARY | 2025-05-25 07:50 | XMS_ITS | Encounter Summary ---
Author Organization [facility] Healthcare Address [address] [place] [address] Care Team Providers Care Radio Frequency Design Engineer Name Role Phone Chandler Geronimo DO Primary Care Prov ider Encounter Details Date Type Department Care Team (Late st Contact Info) Description 09/08/2024 Orders Only [facility] Health Information Management [address] [place] [id number] Scanning, Provider Social History Tobacco Use Types Packs/Day Years Used Date Smoking Tobacco: Never Assessed Sex and Gender Information Value Date Recorded Sex Assigned at Not on file Legal Sex Male 5:28 PM PANEL CUTTER Gender Identity Not on file Sexual [...] on filedocumented in this encounter Care Teams Radio Frequency Design Engineer Relationship Specialty Start Date End Date Chandler Geronimo DO PCP - General Family Medicine 06/07/21 documented as of this encounter
--- OUTSIDE RECORDS SUMMARY | 2025-05-25 07:50 | XMS_ITS | Encounter Summary ---
Author Organization [facility] Address [address] [place] [address] Care Team Providers Care Event Lighting Specialist Name Role Phone Chandler Geronimo DO Primary Care Provide r Encounter Details Date Type Department Care Team (Late st Contact Info) Description 09/01/2024 MyChart Message Enc [facility] Medical Group Multispecialty Care - [facility] 3 [facility], [facility] [address] [place] [address] David Hamilton MD 3 [facility], [facility] [address] [place] [address] question Social History Tobacco Use Types Packs/Day Years Used Date Smoking Tobacco: Never Smokeless Tobacco: Never Alcohol Use Standard Drinks/Week Comments Never 0 (1 standard drink = 0.6 oz pur e alcohol) [facility] Utilities Answer Date Recorded In [...] declined 10/10/2022 How often do you attend jewish or baptist serv ices? Patient declined 10/10/2022 Do you belong to any clubs o r organizations such as jewish groups, unions, fraternal or athletic groups, or [...] Recorded Patient Health Questionnaire-2 Score 0 07/26/2024 [facility] [place] of Occupat ional Health - Occupational Stress [...] in a jail (including now)? No 10/10/2022 Housing Stability Vital Sign Answer [place] e Recorded In the last 12 months, was t here a time when you were not able to pay the mortgage or rent on time? No 08/24/2024 In the past 12 months, how m any times have you moved where you were living? 0 08/24/2024 At any time in the past 12 m [facility], were you homeless or living in a jail (including now)? 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
--- OUTSIDE RECORDS SUMMARY | 2025-05-25 07:50 | XMS_ITS | Encounter Summary ---
Author Organization [facility] Address [address] [place] [address] Care Team Providers Care Early Interventionist Name Role Phone Chandler Geronimo DO Primary Care Provide r Encounter Details Date Type Department Care Team (Late st Contact Info) Description 10/21/2022 Therapy Plan [facility] Infusion Services [address] [place] [phone] David Hamilton MD 3 [facility], [place] [phone] Social History Tobacco Use Types Packs/Day Years [...] How often do you attend sabianist or roman catholic serv ices? Patient declined [...] Recorded Patient Health Questionnaire-2 Score 0 10/21/2022 [facility] of Occupat ional Health - Occupational Stress [...] Sex Assigned at Male 07/22/2024 2:00 PM PHARMACOVIGILANCE SCIENTIST Legal Sex Male 2:48 PM PHARMACOVIGILANCE SCIENTIST Gender Identity Not on file Sexual Orientation [...] documented as of this encounter Care Teams Early Interventionist Relationship Specialty Start Date End Date Chandler Geronimo DO [address] [place] [phone] PCP - General FAMILY PRACTICE 05/29/21 documented as of this encounter
--- OUTSIDE RECORDS SUMMARY | 2025-05-25 07:50 | XMS_ITS | Encounter Summary ---
Author Organization [facility] Address [address] [place] [address] Care Team Providers Care Cloth Washer Operator Name Role Phone Chandler Geronimo DO Primary Care Provide r Encounter Details Date Type Department Care Team (Late st Contact Info) Description 01/10/2022 Therapy Plan [facility] Infusion Services [place] [phone] David Hamilton MD 3 [facility], [address] [phone] Social History Tobacco Use Types Packs/Day Years [...] Sex Assigned at Male 07/22/2024 2:00 PM MAPPING PILOT Legal Sex Male 2:48 PM MAPPING PILOT Gender Identity Not on file Sexual Orientation [...] Assessment Author Status No 06/13/2021 2:44 AM MAPPING PILOT Activ e * RETIRED Are you blind or do you have serious difficulty seeing, even when wearing glasses? Answer Date of Assessment Author Status No 06/13/2021 2:44 AM MAPPING PILOT Activ e * Do you have serious difficulty walking or climbing stairs? Answer Date of Assessment Author Status No 06/13/2021 2:44 AM Chayo aJmes RN Active * Do you have difficulty [...] documented as of this encounter Care Teams Cloth Washer Operator Relationship Specialty Start Date End Date Chandler Geronimo DO [address] [place] [phone] PCP - General FAMILY PRACTICE 05/29/21 documented as of this encounter
--- OUTSIDE RECORDS SUMMARY | 2025-05-25 07:50 | XMS_ITS | Encounter Summary ---
Author Organization [facility] Address [address] [place] [address] Care Team Providers Care Labor Representative Name Role Phone Chandler Geronimo DO Primary Care Provide r Encounter Details Date Type Department Care Team (Late st Contact Info) Description 07/16/2021 Therapy Plan [facility] Infusion Services [place] [phone] David Hamilton MD 3 [facility], [address] [phone] Social History Tobacco Use Types Packs/Day Years Used Date Smoking Tobacco: Never Smokeless Tobacco: Never Alcohol Use Standard Drinks/Week Comments Never 0 (1 standard drink = 0.6 oz pur e alcohol) Sex and Gender Information Value Date Recorded Sex Assigned at Male 07/22/2024 2:00 PM SEMICONDUCTOR PROCESSOR Legal Sex Male 2:48 PM SEMICONDUCTOR PROCESSOR Gender Identity Not on file Sexual Orientation Not on file COVID-19 Exposure Response Date Recorded In the last 10 days, have yo u been in contact with someone who was confirmed or suspected to have Coronavirus/COVID-19? No / Unsure 07/16/2021 3:48 PM SEMICONDUCTOR PROCESSOR documented as of this encounter Functional Status * RETIRED Are you deaf or do you have serious difficulty hearing Answer Date of Assessment Author Status No 06/13/2021 2:44 AM SEMICONDUCTOR PROCESSOR Activ e * RETIRED Are you blind or do you have serious difficulty seeing, even when wearing glasses? Answer Date of Assessment Author Status No 06/13/2021 2:44 AM SEMICONDUCTOR PROCESSOR Activ e * Do you have serious [...] chronic kidney disease, not on chronic dialysis ([facility])- Primary documented in this encounter Care Teams Labor Representative Relationship Specialty Start Date End Date Chandler Geronimo DO [address] [place] [phone] PCP - General FAMILY PRACTICE 05/29/21 documented as of this encounter
--- OUTSIDE RECORDS SUMMARY | 2025-05-25 07:50 | XMS_ITS | Clinical Summary ---
Author Organization [facility] Address [address] [place] [address] Care Team Providers Care Fruit Packer Face And Fill Name Role Phone Chandler Geronimo DO Primary [...] by mouth daily. Active epoetin rosette-epbx (RETACRIT) 44421 Units/mL injectionIndications:E nd Stage Renal Disease on Hemodialysis Inject 1 mL (10,000 Units total) into the skin 3 (three) times a week. Indications: Fdc Kidney Failure Treated with Hemodialysis On Friday, Friday and Friday with hemodialysis 12 mL 025 Active allopurinol (ZYLOPRIM) 100 MG tabletIndications:Hype ruricemia Take 1 tablet (100 mg total) by mouth 3 (three) times a week. On Friday, Friday and Friday after hemodialysis 12 tablet 025 Active furosemide (LASIX) 40 MG tabletIndications:ESRD (end stage renal disease) on dialysis ([facility]) Take 3 tablets (120 mg total) by mouth 2 (two) times a day, 3 (three) days a week. Take 3 tablets (120 mg total) two times a day on non-dialysis days (Friday, Friday, and Friday) 96 tablet 025 Active B magpobv-J-iefdu acid 0.8 mg (DIALYVITE/NEPHRO-ROMINA ) Tab tabletIndications:End stage renal disease ([facility]) Take 1 tablet by mouth daily. 30 [...] 5, GFR less than 15 ml/min ([facility]),Secondary hyperparathyroidism ([facility]HS/HCC),Primary hypertension,Hyperkale abbie Take 1 tablet (4 mg total) by mouth nightly at bedtime. 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 Edema, unspecified type 06/28/2021 Acute kidney injury 05/29/2021 Resolved Problems Problem Noted Date Diagnosed Date Resolved Date Pneumonia 06/13/2021 06/19/2021 Encounters Date Type Department Care Team Description 03/28/2025 Orders Only [facility] Infusion Services at [facility] [place] [address] Non-Staff, Provider from Last 3 Months Immunizations Immunization Administration Dates Next Due Influenza (Generic) 05/03/2024,02/18/2014 Influenza Adult (Generic) 04/17/2023,04/05/2021 PFIZER COVID-19 (ORIGINAL FO RMULATION, PURPLE CAP) mRNA, LNP-S, PF, 30 MCG/0.3 ML DOSE 12/22/2021,10/04/2020 Pneumococcal (Pneumovax 23) 02/19/2024, 4,06/20/2013 Pneumococcal (Prevnar 13) 11/26/2017 Pneumococcal (Prevnar 20) 05/03/2024 Tdap (Generic) 08/27/2016,02/25/2016 Zoster (Zostavax) 60559 Unt/0.65Ml 02/25/2016 Family History Medical History Relation [...] drink = 0.6 oz pur e alcohol) [facility] Utilities Answer Date Recorded In the past 12 months has e [employer], gas, oil, or water [employer] threatened to shut off services in your [...] declined 10/10/2022 How often do you attend rastafarian or christian serv ices? Patient declined 10/10/2022 Do you belong to any clubs o r organizations such as rastafarian groups, unions, fraternal or athletic groups, or [...] Recorded Patient Health Questionnaire-2 Score 0 07/26/2024 [facility] - Occupational Stress [...] in a residential (including now)? No 10/10/2022 Housing Stability Vital [...] were you homeless or living in a residential (including now)? 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 Not on file [...] (10 Years) Discontinued 05/29/2024, 05/28/2024 PHQ-2 (Physician [place]) Completed 07/26/2024 Colorectal Cancer Screening FIT/FOBT (1 [...] remain independent in ADLs upon discharge from [facility] Aline Russell, RN Health - patient able to perform ADLs independently Lifestyle No El Vaughn smelter charger - family caregiver with be involved in care transitions and discharge planning Lifestyle No Abby Eng RN Procedures Procedure Name Priority Date/Time Associated Diagnosis Comments OCCULT BLOOD, FECES Routine 08/28/2024 1 1:48 AM CDT HEMOGLOBIN, GLYCOSYLATED Routine 08/25/2024 6:44 AM CDT COLONOSCOPY Routine 05/28/2024 12:12 PM GYN LIPID PANEL Routine 10/12/2022 7:06 AM CDT HEPATITIS PANEL,ACUTE Routine 05/30/2021 1:20 PM GYN from Last 3 Months or Most Recently Relevant to Health Maintenance Results * (ABNORMAL) OCCULT BLOOD, FECES (08/28/2024 11:48 AM CDT) OCCULT BLOOD FECAL POSITIVE(A ) NEGATIVE 08/28/2024 12:57 PM CDT [facility] STOOL SPECIMEN / Unknown 08/28/2024 11:48 AM CDT David Hamilton MD BODY FLUIDS AND STOOLS ORDERAB LES Final Result [facility] [address] [place] [address], [place] [phone] * (ABNORMAL) HEMOGLOBIN, GLYCOSYLATED (08/25/2024 6:44 AM CDT) [facility] HGB A1C 5.9(H) <5.7 % 08/25/2024 9:03 AM CDT [facility] Comment: ADA GUIDELINES 2010 5.7 TO 6.4% INCREASED RISK OF DIABETES > OR = 6.5% CONSISTENT WITH DIABETES ESTIMATED AVG GLUCOSE 123 mg/dL 08/25/2024 9:03 AM CDT [facility] 08/25/2024 6:44 AM CDT Joann Sherman NP LABORATORY Final Result [facility] [address] [place] [address], [place] [phone] * (ABNORMAL) LIPID PANEL (10/12/2022 7:06 AM CDT) [facility] CHOLESTEROL 110 <200 MG/DL 10/12/2022 8:01 AM CDT [facility] TRIGLYCERIDES 134 <150 MG/DL 10/12/2022 8:01 AM CDT [facility] HDL 35(L) >40.0 MG/DL 10/12/2022 8:01 AM T [facility] LDL (CALCULATED) 48 <100 MG/DL 10/13/19 8:01 AM CDT [facility] NON HDL CHOLESTEROL 75 <130 MG/DL 10/12 8:01 AM T [facility] CHOL/HDL RATIO 3.1 0.0 - 4.5 10/12/2022 8:01 AM T [facility] VLDL CALCULATION 27 5 - 55 MG/DL 10/12/2022 8:01 AM T [facility] LIPID INTERPRETATION 10/12/2022 8:01 AM T [facility] Comment: NIH CONCENSUS REPORT RECOMMENDATIONS: ADULT CHILD LOW RISK: CHOLESTEROL <200 <170 TRIGLYCERIDE <150 --- HDL >=60 --- LDL <100 <110 BORDERLINE: CHOLESTEROL 200-239 170-199 TRIGLYCERIDE 150-199 --- HDL 40-59 --- LDL 100-159 110-129 HIGH RISK: CHOLESTEROL >=240 >=200 TRIGLYCERIDE >=200 --- HDL <40 --- LDL >=160 >=130 10/12/2022 7:06 AM CDT us Josseline Tabares MD LABORATORY Final Result [facility] [address] [place] [address], * HEPATITIS PANEL,ACUTE (05/30/2021 1:20 PM GYN) HEPATITIS B SURFACE AG NON-REACTI VE NON-REACTI VE 05/30/2021 3:16 PM GYN [facility] HEP B CORE IGM NON-REACTI VE NON-REACTI VE 05/30/2021 3:16 PM GYN [facility] HAV IGM NON-REACTI VE NON-REACTI VE 05/30/2021 3:16 PM GYN [facility] HEPATITIS C AB NON-REACTI VE NON-REACTI VE 05/30/2021 3:16 PM GYN [facility] 05/30/2021 1:20 PM GYN us David Hamilton MD LABORATORY Final Result [facility] [address] [place] [address], [place] [phone] from Last 3 Months or Most Recently [...] 11:22 PM 06/03/2021 3:03 PM Care Teams Fruit Packer Face And Fill Relationship Specialty Start Date End Date Chandler Geronimo DO [address] [place] [phone] PCP - General FAMILY PRACTICE 05/29/21
--- OUTSIDE RECORDS SUMMARY | 2025-05-25 07:50 | XMS_ITS | Clinical Summary ---
Author Organization [facility] Wong Holliday Address [address] [place] [address] Care Team Providers Care Councilman Name Role Phone Unavailable Primary Care Provider [...] Department Care Team Description 05/13/2025 Orders Only [facility] Oncology and Hematology - [address] Iron Cunningham MD 05/12/2025 2:15 PM MEDICAL ONCOLOGIST Office Visit [facility] Oncology and Hematology - [address] Iron Cunningham MD Chronic anemia (Primary Dx) 05/10/2025 External Device Data STL ABSTRACTION Provider, Abstract 05/03/2025 External Device Data STL ABSTRACTION Provider, Abstract 04/15/2025 Abstract [facility] Oncology and Hematology - [address] Iron Cunningham MD 04/15/2025 Orders Only [facility] Oncology and Hematology - [address] Iron Cunningham MD 04/14/2025 Orders Only [facility] Oncology and Hematology - [address] [place] [phone] Iron Cunningham MD Chronic anemia (Primary Dx) 04/12/2025 Telephone [facility] Oncology and Hematology - [address]ha [address] [place] [phone] Iron Cunningham MD Lab questions 04/01/2025 Orders Only [facility] Oncology and Hematology - [address] Radha [address] Iron Cunningham MD 03/31/2025 Telephone [facility] Oncology and Hematology - [address] [place] [phone] Iron Cunningham MD Lab Results 03/23/2025 External [...] Comments Blood Pressure 121/43 05/12/2025 2:14 PM MEDICAL ONCOLOGIST Pulse 64 05/12/2025 2:14 PM MEDICAL ONCOLOGIST Temperature 37 C (98.6 F) 05/12/2025 2:14 PM MEDICAL ONCOLOGIST Respiratory Rate 15 05/12/2025 2:14 PM MEDICAL ONCOLOGIST Oxygen Saturation 93% 05/12/2025 2:14 PM MEDICAL ONCOLOGIST Inhaled Oxygen Concentration - - Weight 79.9 kg (176 lb 3.2 oz) 05/12/2025 2:14 P M MEDICAL ONCOLOGIST Height 177.8 cm (5' 10) 12/16/2024 2:28 PM CDT Body Mass Index 25.28 12/16/2024 2:28 PM CDT Plan of Treatment Upcoming Encounters Date Type Department Care Team (Late st Contact Info) Description 08/11/2025 2:45 PM CDT Office Visit [facility] Oncology and Hematology - [address] [place] [address] Iron Cunningham MD [address] [facility] [address] [place] [address] Health Maintenance Due Date Last [...] CBC WITH AUTODIFFERENTIAL Routine 2024 12:59 PM MEDICAL ONCOLOGIST CBC WITH AUTODIFFERENTIAL Routine 2024 11:02 AM MEDICAL ONCOLOGIST CBC WITH AUTODIFFERENTIAL Routine 2024 11:47 AM CDT from Last 3 Months Results * CBC WITH AUTODIFFERENTIAL (05/12/2025 12:59 PM MEDICAL ONCOLOGIST) Only the most recent of3 resultswithin the time period is included. Blood Iron Cunningham MD HEMATOLOGY ORDERABLES Final Res ult from Last 3 Months Insurance AETNA O [facility] Address: [facility] [id number] [place] [id number] AETNA HMO MCR
--- OUTSIDE RECORDS SUMMARY | 2025-05-25 07:50 | XMS_ITS | Encounter Summary ---
Author Organization [facility] Address [address] [place] [address] Care Team Providers Care Low Pressure Boiler Tender Name Role Phone Chandler Geronimo DO Primary Care Provide r Encounter Details Date Type Department Care Team (Late st Contact Info) Description 07/28/2024 [facility] [address] [phone] Filipp[facility], [facility] Provider Orders Social History Tobacco Use Types Packs/Day Years Used Date Smoking Tobacco: Never Smokeless Tobacco: Never Alcohol Use Standard Drinks/Week Comments Never 0 (1 standard drink = 0.6 oz pur e alcohol) [facility] Utilities Answer Date Recorded In the past 12 months has [facility] [employer], oil, or water [employer] threatened to shut off services in your [...] Recorded Patient Health Questionnaire-2 Score 0 07/26/2024 [facility] ional Health - [...] place to sleep or slept in a prison (including now)? No 10/10/2022 Housing Stability Vital [...] time in the past [address] [facility], were you homeless or living in a prison (including now)? 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 Not on file [...] remain independent in ADLs upon discharge [facility] General No Aline Krishna RN Health - patient able to perform ADLs independently Lifestyle No El aVughn RN Family - family caregiver with be involved in care transitions and discharge planning Lifestyle No Abby Eng RN documented as of this encounter Visit Diagnoses Not on filedocumented in this encounter Additional Health Concerns Assessment Noted Time PHQ-9 Depression Total Score: 0 03/14/20 22 3:10 PM CDT documented as of this encounter Care Teams Low Pressure Boiler Tender Relationship Specialty Start Date End Date Chandler Geronimo DO [address] [place] [phone] PCP - General FAMILY PRACTICE 05/29/21 documented as of this encounter
--- OUTSIDE RECORDS SUMMARY | 2025-05-25 07:50 | XMS_ITS | Clinical Summary ---
Author Organization [facility] Address [address] [place] [address] Care Team Providers Care Subgrade Tester Name Role Phone Unavailable Primary Care Provider Unavailabl e Source Comments [facility],non-owned Affiliates and Associated Physician Practices is amultiple site organization consisting of ambulatory clinics and hospital sitesin [place], [place], [place] and [place]. This disclosure is being madepursuant to the Care Everywhere program and may not contain all information available regarding this patient. Last updated 18.[facility] Allergies No known active allergies Medications * [...] on file Legal Sex Male 11:54 AM CYBER THREAT ANALYST Gender Identity Not on file Sexual Orientation Not on file Last Filed Vital Signs Vital Sign Reading Time Taken Comments Blood Pressure 113/89 06/17/2011 5:40 PM CYBER THREAT ANALYST Pulse 67 06/17/2011 9:53 PM CYBER THREAT ANALYST Temperature 36.3 C (97.3 F) 06/17/2011 5:40 PM CYBER THREAT ANALYST Respiratory Rate 16 06/17/2011 5:40 PM CYBER THREAT ANALYST Oxygen Saturation 95% 06/17/2011 9:53 PM CYBER THREAT ANALYST Inhaled Oxygen Concentration - - Weight 91.6 kg (202 lb) 06/17/2011 5:40 PM CYBER THREAT ANALYST Height 177.8 cm (5' 10) 06/17/2011 5:40 PM CYBER THREAT ANALYST Body Mass Index 28.98 06/17/2011 5:40 PM CYBER THREAT ANALYST Plan of Treatment Health Maintenance Due [...] of Phone Billing Address Personal/Family Self 1950 [phone] (Work) [address] [place] [address] AETNA MEDICARE ADV MEDICAID [place] Advance Directives * FULL RESUSCITATION (Latest Code Status on File) Date Activated Date Inactivated Comments 11/20/2010 1:48 PM 11/21/2010 5:57 AM
--- OUTSIDE RECORDS SUMMARY | 2025-05-25 07:50 | XMS_ITS | Clinical Summary ---
Author Organization [facility] Address [address] [place] [address] Care Team Providers Care Breast Worker Name Role Phone Chandler Geronimo DO [...] Department Care Team Description 04/11/2025 3:00 PM MECHANICAL LEAD Office Visit [facility] [address] [place] [address] [place] [phone] North Myers MD Iron deficiency anemia due to chronic blood loss (Primary Dx) 04/04/2025 Orders Only [facility] Cardiac Catheterization Lab [address] [place] [phone] North Myers MD Paroxysmal atrial fibrillation (HCC) (Primary Dx); Contraindication to anticoagulation therapy 04/01/2025 Orders Only [facility] Cardiac Catheterization Lab [address] [place] [address] North Myers MD Paroxysmal atrial fibrillation (HCC) (Primary Dx); Preop cardiovascular exam 03/29/2025 Orders Only [facility] [address] [place] [address] [place] [phone] Anika Nielsen NP Dyspnea on exertion 03/29/2025 Telephone [facility] [address] [place] [address] [place] [phone] Anika Nielsen NP 03/28/2025 2:30 PM CDT Office Visit [facility] [address] [place] [address] [place] [phone] Anika Nielsen NP Dyspnea on exertion (Primary Dx); Anemia due to chronic kidney disease, on chronic dialysis (HCC); Pulmonary hypertension (HCC); History of recent pneumonia; Encounter for anticoagulation discussion and counseling; Paroxysmal atrial fibrillation (HCC) 03/28/2025 Telephone [facility] [address] [place] [address] [place] [phone] North Myers MD 03/25/2025 Results Follow-Up [facility] [address] [facility] [address] [place] [phone] Corinne Walter RN Transthoracic Echo (TTE) Limited/Followup 03/24/2025 1:00 PM CDT Ancillary Procedure [facility] [address] [place] [address] [address] [place] [phone] Pericardial effusion 03/22/2025 1:30 PM CDT Ancillary Procedure [facility] [address] [place] [address] [place] [phone] Paroxysmal atrial fibrillation (HCC) 03/16/2025 Telephone [facility] [address] [place] [address] [place] [phone] North Myers MD LAAO from Last 3 Months Medical History Medical History Date Comments Hypertension Covid-19 Social History Tobacco Use Types Packs/Day Years Used Date Smoking Tobacco: Former Cigarettes Tobacco Cessation:Counseling Given: Not Answered Sex and Gender Information Value Date Recorded Sex Assigned at Not on file Legal Sex Male 5:28 PM MECHANICAL LEAD Gender Identity Not on file Sexual Orientation Not on file Last Filed Vital Signs Vital Sign Reading Time Taken Comments Blood Pressure 140/60 04/11/2025 2:59 PM MECHANICAL LEAD Pulse 67 04/11/2025 2:59 PM MECHANICAL LEAD Temperature 36.8 C (98.2 F) 06/07/2021 3:50 PM MECHANICAL LEAD Respiratory Rate 16 01/20/2025 1:13 PM CDT Oxygen Saturation 99% 04/11/2025 2:59 PM MECHANICAL LEAD Inhaled Oxygen Concentration - - Weight 80.7 kg (178 lb) 04/11/2025 2:59 PM MECHANICAL LEAD Height 175.3 cm (5' 9) 04/11/2025 2:59 PM MECHANICAL LEAD Body Mass Index 26.29 04/11/2025 2:59 PM MECHANICAL LEAD Plan of Treatment Health Maintenance Due Date [...] Routine 03/24/2025 1:44 PM CDT Pericardial effusion EXTENDED/ASSISTED HOLTER PATCH (>48 HOURS UP TO 7 [...] PM CDT Narrative 03/24/2025 3:58 PM CDT [facility] Cardiology [address] [facility] [address] [phone] [facility] [address], [place] [address] P:[phone] P:[phone] Echocardiographic Report Patient Name: JAYLEEN VERONICA : 1950 Study Date: 03/24/2025 1:13:29 PM Sex: M Waiter/Waitress: Mildred Pinzon)(CT), [facility] Location: [place] Ref Provider: NORTH MYERS Height(Cm): 175 BSA: [...] FINDINGS: Interpretation Site: Exam was interpreted at [facility]. Left Ventricle: Normal left ventricular systolic [...] Procedure Note Amado Estes MD - 03/24/2025 [facility] Cardiology [address] [facility] [address], [place] [address] [address] [facility] [address], [place] [address] P:[phone] P:[phone] Echocardiographic Report Patient Name: JAYLEEN VERONICA : 1950 Study Date: 03/24/2025 1:13:29 PM Sex: M Waiter/Waitress: Mildred Fischer (Robe)(CT), [facility] Location: [place] Ref Provider: NORTH MYERS Height(Cm): 175 BSA: [...] FINDINGS: Interpretation Site: Exam was interpreted at [facility]. Left Ventricle: Normal left ventricular systolic [...] Modality Electrocardiogra phy Narrative 04/05/2025 11:07 AM MECHANICAL LEAD AMBULATORY MANAGER OF ENVIRONMENTAL SERVICES REPORT Patient Name: Jayleen Gamez Date of [...] was used to complete this document, therefore, pathology transcriptionist variances may occur. Procedure Note North Myers MD - 04/05/2025 AMBULATORY MANAGER OF ENVIRONMENTAL SERVICES REPORT Patient Name: Jayleen Gamez Date of [...] software was used to complete this document, therefore,pathology transcriptionist variances may occur. North Myers MD CV CARDIAC SERVICES PROCEDURES F inal Result from Last 3 Months Insurance AETNA MEDICARE GOLD Care Teams Breast Worker Relationship Specialty Start Date End Date Chandler Geronimo DO PCP - General Family Medicine 06/07/21
--- NOTE | 2025-05-25 09:14 | ECG_ITS ---
Test Date: 2025-05-25 09:38:17 Measurements Intervals [place] Rate: 68 P: 12 TX: 195 QRS: 34 QRSD: 163 T: 14 QT: 505 QTc: 541 Interpretive Statements SINUS RHYTHM RIGHT BUNDLE BRANCH BLOCK BASELINE ARTIFACT- V3 ABNORMAL ECG No previous ECG available for comparison Electronically Signed On 05-25-2025 11:35:15 PRINT WASHER by Priyank Basilio D.O.
--- NOTE | 2025-05-25 09:34 | ED.RECABL ---
HPI - Recheck/Abnormal Lab/Rx General Chief Complaint: Recheck/Abnormal Lab/Rx Stated Complaint: dialysis pt - needs blood transfusion Time Seen by Provider: 05/25/25 09:20 Source: patient and family Mode of arrival: ambulatory Limitations: no limitations History of Present Illness HPI narrative: Patient is a 75 y/o male who presents to the ED with c/o low hemoglobin. Patient has history of chronic anemia, end-stage renal disease on hemodialysis typically T//Fri. Daughter at bedside assisted in providing information. Reports this week and next week patient is scheduled to receive dialysis Friday/Friday/Saturdays due to the holidays. Sees Dr. Ward. Daughter reports that patient was unable to receive his dialysis today due to his hemoglobin being low at 5.0. He does have history of chronic anemia and has received blood transfusions in the past. Last blood transfusion was 05/10. Patient did undergo EGD with Dr. 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 There was no active bleeding during the EGD. Daughter reports patient has had chronic shortness of breath with exertion and a chronic cough for the past several months. Denies any new symptoms. Patient denies any pain. Denies fevers. Denies CP. Patient takes an aspirin 81 mg daily. No other blood thinners. Related Data Home Medications ?Medication ?Instructions ?Recorded ?Confirmed ?Last Taken ?Type allopurinol 100 mg tablet See Rx Instructions .Route .COMPLEX 09/06/24 05/24/25 05/21/25 History amiodarone 400 mg tablet 200 mg PO DAILY 09/06/24 05/24/25 05/23/25 History calcitriol 0.25 mcg capsule 0.25 mcg PO DAILY 09/06/24 05/24/25 05/23/25 History doxazosin 4 mg tablet (Cardura) 4 mg PO QPM 09/06/24 05/24/25 05/23/25 History furosemide 40 mg tablet 120 mg PO BID 09/06/24 05/24/25 05/23/25 History pantoprazole 40 mg tablet,delayed 40 mg PO QAM 09/06/24 05/24/25 05/23/25 History release (Protonix) atorvastatin 20 mg tablet 80 mg PO EVENING 04/19/25 05/24/25 05/23/25 History ferrous sulfate 325 mg (65 mg 325 mg PO DAILY 04/19/25 05/24/25 05/23/25 History iron) tablet (iron) sodium bicarbonate 650 mg tablet 650 mg PO DAILY PRN stomach upset 04/19/25 05/23/25 Unknown History Allergies Allergy/AdvReac Type Severity Reaction Status Date / Time No Known Allergies Allergy Verified 05/25/25 08:45 Review of Systems Review of Systems: All systems reviewed & are unremarkable except as noted in HPI. All systems reviewed & are unremarkable except as noted in HPI and below PMFSH Past Medical History Medical History Diastolic congestive heart failure ANCA-associated vasculitis Hyperlipidemia Hyperuricemia Diabetes Hypertension Atrial fibrillation Anemia Pleural effusion Hypotension Acute on chronic anemia Pericardial effusion History of end stage renal disease Surgical History Surgical History History of back surgery H/O bilateral cataract extraction Family History Family History Father Myocardial infarct Sibling Myocardial infarct Mother Dementia Social History Social History Smoking status: Former smoker Additional smoking assessment comments: quit many years ago Alcohol intake: never Substance use: never Lack of Transportation: No Lack of Food: Never True Current Housing: I Have Housing Concerned About Future Housing: No Difficulty Paying Gas/Electric Bills: No Difficulty Paying for Meds: No Currently Unemployed: No Education: High School Diploma/GED Difficulty w/ Childcare or Family Care: No Living arrangements: with family Spiritual care concerns: No Exam Narrative: GENERAL: Elderly, slightly pale appearing, well-nourished, non-toxic, in no acute distress. HEAD: Normocephalic, atraumatic. RESPIRATORY: Airway patent, respirations nonlabored. Clear to auscultation bilaterally, no rales, rhonchi, wheezing. No significant focal lung sounds. CARDIOVASCULAR: Regular rate and rhythm without murmurs, rubs, or gallops. ABDOMINAL: Soft, nontender, nondistended. Normoactive BS. MUSCULOSKELETAL: Moves all extremities. No gross deformities. No peripheral edema. SKIN: Warm, dry, normal color. NEURO: A&O X3. Speech clear. Cranial nerves II-XII grossly intact. Steady gait. No ataxic movements. PSYCHIATRIC: Appropriate mood and affect. Normal interaction. Course Vital Signs Vital signs: Vital Signs Temperature 98.2 F 05/25/25 08:42 Pulse Rate 71 05/25/25 08:42 Respiratory Rate 18 05/25/25 08:42 Blood Pressure 130/40 L 05/25/25 08:42 Pulse Oximetry 96 05/25/25 08:42 Oxygen Delivery Room Air 05/25/25 08:42 Temperature 97.9 F 05/25/25 17:12 Pulse Rate 74 05/25/25 17:12 Respiratory Rate 20 05/25/25 17:12 Blood Pressure 149/59 H 05/25/25 17:12 Pulse Oximetry 98 05/25/25 17:12 Oxygen Delivery Room Air 05/25/25 08:42 MDM MDM Narrative Medical decision making narrative: Patient presented to ED with report of low hemoglobin, unable to receive dialysis treatment today. History of anemia, diagnosed with an AVM yesterday via EGD and this was treated with APC. There was no active bleeding per EGD records Vital signs are stable upon arrival. Patient is in no acute distress. No evidence of fluid overload on exam. Exam otherwise unremarkable. Cbc with anemia noted at 5.1. Hematocrit 16.9. Per records, hemoglobin in the past is often in the 5-6 range. 2 units packed red blood cells ordered. CMP with normal potassium. Creatinine 7.8, slightly increased from baseline, but would make sense with patient missing dialysis today. Viral swabs are negative Chest x-ray with small bilateral pleural effusions with likely associated atelectasis. Left suspicious for pneumonia. Patient has had a chronic cough for the past several months, nonproductive, no leukocytosis. He has been afebrile. Daughter discussed with patient's [facility] facility and will be able to receive dialysis treatment on Friday and normal Tx on Friday. Laboratory studies are otherwise fairly reassuring at this time. Potassium within normal range. Discussed case with Dr. Ward, nephrology, agrees with plan for 2 units transfusion now, monitor after transfusions to ensure no fluid overload and okay to receive dialysis on Friday/Friday. Patient feeling great after transfusions. No shortness of breath. No evidence of fluid overload. No peripheral edema. States he is ready to go home. Daughter at bedside is in agreement. Given strict return precautions. Discharged in stable condition. Differential Diagnosis Differential Diagnosis: Anemia, GI bleed, anemia of chronic disease, hyper K, URI, COVID Medical Records I have reviewed the following patient records and this information was taken into consideration when formulating the assessment and plan.: previous labs, previous ER visits, previous hospitalizations and previous clinic visits Lab Data MDM Lab Attestation statement: I personally reviewed the patient's lab results. 05/25/25 09:51 05/25/25 09:51 Labs: Lab Results 05/25/25 05/25/25 Range/Units 09:47 09:51 WBC 6.2 (4.5-10.0) K/mm3 RBC 1.60 L (4.6-6.20) M/mm3 Hgb 5.1 L* (14.0-18.0) g/dL Hct 16.9 L* (42.0-52.0) % MCV 105.6 H (80-100) fl MCH 31.9 (26-34) pg MCHC 30.2 L (32-36) g/dl RDW 17.9 H (11.5-14.5) % Plt Count 236 (150-375) k/mm3 MPV 8.2 (7.4-10.4) fl Immature Gran % (Auto) 0.5 (0-0.5) % Neut % (Auto) 74.6 H (45.5-73.1) % Lymph % (Auto) 10.8 L (18.3-44.2) % Potter % (Auto) 10.5 H (2.6-8.5) % Eos % (Auto) 3.1 (0-4.4) % Baso % (Auto) 0.5 (0.2-1.2) % Lymph # (Auto) 0.67 L (0.9-3.2) K/mm3 Potter # (Auto) 0.7 H (0.1-0.6) K/mm3 Eos # (Auto) 0.2 (0-0.3) K/mm3 Baso # (Auto) 0.0 (0.0-0.1) K/mm3 Abs Immat Gran (auto) 0.03 (0.00-0.031) K/mm3 Absolute Neuts (auto) 4.7 (1.3-6.7) K/mm3 Absolute Nucleated RBC 0.000 (0.0-0.012) K/mm3 Band Neutrophils % Not Reportable Nucleated RBC % 0.0 (0.0-0.2) % Platelet Estimate Adequate (Adequate) Hypochromasia Occasional Basophilic Stippling Occasional Anisocytosis 1+ Macrocytosis 1+ (NORMAL) Ovalocytes Occasional Schistocytes Rare PT 15.1 H (11.1-14.7) Seconds INR 1.2 APTT 31.0 (22.3-36.8) Seconds Sodium 138 (137-145) mmol/L Potassium 4.5 (3.4-5.0) mmol/L Chloride 102 (98-107) mmol/L Carbon Dioxide 28 (22-30) mmol/L Anion Gap 8 (4-12) mmol/L BUN 86 H D (9-20) mg/dL Creatinine 7.80 H (0.7-1.3) mg/dL Estim Creat Clear Calc 7 ml/min Estimated GFR 7 L (59 - ) Glucose 122 H (65-110) mg/dL Calcium 9.3 (8.4-10.2) mg/dL Total Bilirubin 0.3 (0.2-1.3) mg/dL AST 28 (17-59) U/L ALT 38 (6-50) U/L Alkaline Phosphatase 226 H (38-126) U/L Total Protein 5.7 L (6.3-8.2) g/dL Albumin 3.1 L (3.5-5.1) g/dL Influenza A (RT-PCR) Negative (Negative) Influenza B (RT-PCR) Negative (Negative) RSV (RT-PCR) Negative (Negative) SARS-CoV-2 RNA (RT-PCR) Negative (Negative) Blood Type O Positive Antibody Screen Negative Crossmatch See Detail Imaging Data Attestation: I personally reviewed and interpreted this imaging study as follows: Radiologist's impression: ITS Impressions Chest X-Ray 05/25/25 10:24 IMPRESSION: 1. Small bilateral pleural effusions with associated atelectasis and/or pneumonia in the mid and lower lung zones. 2. Large cardiac silhouette which could be due to cardiomegaly or pericardial effusion is evident on CT from 09/06/2024. 3. Bridging syndesmophytes throughout the thoracic spine suspicious for ankylosing spondylitis. ECG Data EKG #1: Attestation: I personally reviewed and interpreted this ECG as follows: ECG completion date: 05/25/25 ECG completion time: 09:38 normal rate (68), sinus rhythm, non-specific ST changes and RBBB Discharge Plan Discharge Clinical Impression: ESRD on hemodialysis Anemia Qualifiers: Anemia type: unspecified type Qualified Code(s): D64.9 - Anemia, unspecified Patient Disposition: Home Condition: Stable Instructions: Antibiotic Form, Anemia (ED), Hemodialysis (DC) Additional Instructions: Obtain your dialysis treatment on Friday and Friday as directed. Follow-up closely with your curtain stretcher assembler/kidney doctor. Return to the ED if you experience rectal bleeding, dark black stools, vomiting blood, difficulty breathing or feeling short of breath, chest pain, unable to keep down food or drink, or any other symptoms of concern. Patient Language: [place] Citizen Prescriptions: No Action atorvastatin 20 mg tablet 80 mg PO EVENING sodium bicarbonate 650 mg tablet 650 mg PO DAILY PRN (Reason: stomach upset) furosemide 40 mg tablet 120 mg PO BID Rx Instructions: on non-dialysis days allopurinol 100 mg tablet See Rx Instructions .ROUTE .COMPLEX Rx Instructions: after dialysis Friday, , Friday amiodarone 400 mg tablet 200 mg PO DAILY pantoprazole [Protonix] 40 mg tablet,delayed release (DR/EC) 40 mg PO QAM doxazosin [Cardura] 4 mg tablet 4 mg PO QPM calcitriol 0.25 mcg capsule 0.25 mcg PO DAILY aspirin 81 mg Tablet,Delayed Release (Dr/Ec) 81 mg PO QAM Qty: 30 0RF ferrous sulfate [iron] 325 mg (65 mg iron) tablet 325 mg PO DAILY metoprolol tartrate 25 mg tablet See Rx Instructions .ROUTE .COMPLEX Qty: 90 3RF Dose Instruction: TAKE 1 TABLET BY MOUTH EVERY DAY. Rx Instructions: TAKE 1 TABLET BY MOUTH EVERY DAY. Dialyvite 800 0.8 mg tablet See Rx Instructions .ROUTE .COMPLEX Qty: 30 12RF Dose Instruction: TAKE 1 TABLET BY MOUTH EVERY DAY Rx Instructions: TAKE 1 TABLET BY MOUTH EVERY DAY Follow-up/Referrals: PHYSICIAN NOT ON STAFF,NONSTAFF [Primary Care Provider] Time of Disposition: 16:59
--- OUTSIDE RECORDS SUMMARY | 2025-05-25 09:36 | XMS_ITS | Encounter Summary ---
Author Organization [facility] Healthcare Address [address] [place] [address] Care Team Providers Care Mottler Operator Name Role Phone Chandler Geronimo DO Primary Care Prov ider Encounter Details Date Type Department Care Team (Late st Contact Info) Description 09/10/2024 Orders Only [facility] Health Information Management [address] [place] [phone] Scanning, Provider Social History Tobacco Use Types Packs/Day Years Used Date Smoking Tobacco: Never Assessed Sex and Gender Information Value Date Recorded Sex Assigned at Not on file Legal Sex Male 5:28 PM MACHINE 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
--- OUTSIDE RECORDS SUMMARY | 2025-05-25 09:36 | XMS_ITS | Clinical Summary ---
Author Organization [facility] Address [address] [place] [address] Care Team Providers Care Veneer Cutter Name Role Phone Chandler Geronimo DO Primary [...] by mouth daily. Active epoetin rosette-epbx (RETACRIT) 99371 Units/mL injectionIndications:E nd Stage Renal Disease on Hemodialysis Inject 1 mL (10,000 Units total) into the skin 3 (three) times a week. Indications: Half-Way Kidney Failure Treated with Hemodialysis On Friday, Friday and Friday with hemodialysis 12 mL 025 Active allopurinol (ZYLOPRIM) 100 MG tabletIndications:Hype ruricemia Take 1 tablet (100 mg total) by mouth 3 (three) times a week. On Friday, Friday and Friday after hemodialysis 12 tablet 025 Active furosemide (LASIX) 40 MG tabletIndications:ESRD (end stage renal disease) on dialysis ([facility]) Take 3 tablets (120 mg total) by mouth 2 (two) times a day, 3 (three) days a week. Take 3 tablets (120 mg total) two times a day on non-dialysis days (Friday, Friday, and Friday) 96 tablet 025 Active B cfjjidw-Y-ebhqg acid 0.8 mg (DIALYVITE/NEPHRO-ROMINA ) Tab tabletIndications:End stage renal disease ([facility]) Take 1 tablet by mouth daily. 30 [...] stage 5, GFR less than 15 ml/min ([facility]),Secondary hyperparathyroidism ([facility]HS/HCC),Primary hypertension,Hyperkale abbie Take 1 tablet (4 mg total) by mouth nightly at bedtime. 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 Edema, unspecified type 06/28/2021 Acute kidney injury 05/29/2021 Resolved Problems Problem Noted Date Diagnosed Date Resolved Date Pneumonia 06/13/2021 06/19/2021 Encounters Date Type Department Care Team Description 03/28/2025 Orders Only [facility] [place] [id number] Non-Staff, Provider from Last 3 Months Immunizations Immunization Administration Dates Next Due Influenza (Generic) 05/03/2024,02/18/2014 Influenza Adult (Generic) 04/17/2023,04/05/2021 PFIZER COVID-19 (ORIGINAL FO RMULATION, PURPLE CAP) mRNA, LNP-S, PF, 30 MCG/0.3 ML DOSE 12/22/2021,10/04/2020 Pneumococcal (Pneumovax 23) 02/19/2024, 4,06/20/2013 Pneumococcal (Prevnar 13) 11/26/2017 Pneumococcal (Prevnar 20) 05/03/2024 Tdap (Generic) 08/27/2016,02/25/2016 Zoster (Zostavax) 03179 Unt/0.65Ml 02/25/2016 Family History Medical History Relation [...] drink = 0.6 oz pur e alcohol) [facility] Utilities Answer Date Recorded In the past 12 months has e [employer], gas, oil, or water [employer] threatened to shut off services in your [...] declined 10/10/2022 How often do you attend buddhist or pentecostalism serv ices? Patient declined 10/10/2022 Do you belong to any clubs o r organizations such as buddhist groups, unions, fraternal or athletic groups, or [...] Recorded Patient Health Questionnaire-2 Score 0 07/26/2024 [facility] [...] any time in the past 12 m [facility], were you homeless or living in a fdc (including now)? 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 on cindy e Not on file [...] (10 Years) Discontinued 05/29/2024, 05/28/2024 PHQ-2 (Physician Allgood) Completed 07/26/2024 Colorectal Cancer Screening FIT/FOBT (1 [...] remain independent in ADLs upon discharge from [facility] General Aline Russell, RN Health - patient able to perform ADLs independently Lifestyle No [place] balloon seller - family caregiver with be involved in care transitions and discharge planning Lifestyle No Abby Eng RN Procedures Procedure Name Priority Date/Time Associated Diagnosis Comments OCCULT BLOOD, FECES Routine 08/28/2024 1 1:48 AM CDT HEMOGLOBIN, GLYCOSYLATED Routine 08/25/2024 6:44 AM CDT COLONOSCOPY Routine 05/28/2024 12:12 PM LOG GETTER LIPID PANEL Routine 10/12/2022 7:06 AM CDT HEPATITIS PANEL,ACUTE Routine 05/30/2021 1:20 PM LOG GETTER from Last 3 Months or Most Recently Relevant to Health Maintenance Results * (ABNORMAL) OCCULT BLOOD, FECES (08/28/2024 11:48 AM CDT) OCCULT BLOOD FECAL POSITIVE(A ) NEGATIVE 08/28/2024 12:57 PM CDT [facility] STOOL SPECIMEN / Unknown 08/28/2024 11:48 AM CDT David Hamilton MD BODY FLUIDS AND STOOLS ORDERAB LES Final Result [facility] [address] [place] [address], [place] [phone] * (ABNORMAL) HEMOGLOBIN, GLYCOSYLATED (08/25/2024 6:44 AM CDT) [facility] HGB A1C 5.9(H) <5.7 % 08/25/2024 9:03 AM CDT [facility] Comment: ADA GUIDELINES 2010 5.7 TO 6.4% INCREASED RISK OF DIABETES > OR = 6.5% CONSISTENT WITH DIABETES ESTIMATED AVG GLUCOSE 123 mg/dL 08/25/2024 9:03 AM CDT [facility] 08/25/2024 6:44 AM CDT Joann Sherman NP LABORATORY Final Result [facility] [address] [place] [address], [place] [phone] * (ABNORMAL) LIPID PANEL (10/12/2022 7:06 AM CDT) [facility] CHOLESTEROL 110 <200 MG/DL 10/12/2022 8:01 AM CDT [facility] TRIGLYCERIDES 134 <150 MG/DL 10/12/2022 8:01 AM CDT [facility] HDL 35(L) >40.0 MG/DL 10/12/2022 8:01 AM T [facility] LDL (CALCULATED) 48 <100 MG/DL 10/13/19 8:01 AM CDT [facility] NON HDL CHOLESTEROL 75 <130 MG/DL 10/12 8:01 AM T [facility] CHOL/HDL RATIO 3.1 0.0 - 4.5 10/12/2022 8:01 AM T [facility] VLDL CALCULATION 27 5 - 55 MG/DL 10/12/2022 8:01 AM T [facility] LIPID INTERPRETATION 10/12/2022 8:01 AM T [facility] Comment: NIH CONCENSUS REPORT RECOMMENDATIONS: ADULT CHILD LOW RISK: CHOLESTEROL <200 <170 TRIGLYCERIDE <150 --- HDL >=60 --- LDL <100 <110 BORDERLINE: CHOLESTEROL 200-239 170-199 TRIGLYCERIDE 150-199 --- HDL 40-59 --- LDL 100-159 110-129 HIGH RISK: CHOLESTEROL >=240 >=200 TRIGLYCERIDE >=200 --- HDL <40 --- LDL >=160 >=130 10/12/2022 7:06 AM CDT us Josseline Tabares MD LABORATORY Final Result [facility] [address] [place] [address], * HEPATITIS PANEL,ACUTE (05/30/2021 1:20 PM LOG GETTER) HEPATITIS B SURFACE AG NON-REACTI VE NON-REACTI VE 05/30/2021 3:16 PM LOG GETTER [facility] HEP B CORE IGM NON-REACTI VE NON-REACTI VE 05/30/2021 3:16 PM LOG GETTER [facility] HAV IGM NON-REACTI VE NON-REACTI VE 05/30/2021 3:16 PM LOG GETTER [facility] HEPATITIS C AB NON-REACTI VE NON-REACTI VE 05/30/2021 3:16 PM LOG GETTER [facility] 05/30/2021 1:20 PM LOG GETTER us David Hamilton MD LABORATORY Final Result [facility] [address] [place] [address], [place] [phone] from Last 3 Months or Most Recently [...] 11:22 PM 06/03/2021 3:03 PM Care Teams Veneer Cutter Relationship Specialty Start Date End Date Chandler Geronimo DO [address] [place] [phone] PCP - General FAMILY PRACTICE 05/29/21
--- OUTSIDE RECORDS SUMMARY | 2025-05-25 09:36 | XMS_ITS | Encounter Summary ---
Author Organization [facility] Healthcare Address [address] [place] [address] Care Team Providers Care Marine Equipment Preservation Inspector Name Role Phone Chandler Geronimo DO Primary Care Prov ider Encounter Details Date Type Department Care Team (Late st Contact Info) Description 09/08/2024 Orders Only [facility] Health Information Management [address] [place] [phone] Scanning, Provider Social History Tobacco Use Types Packs/Day Years Used Date Smoking Tobacco: Never Assessed Sex and Gender Information Value Date Recorded Sex Assigned at Not on file Legal Sex Male 5:28 PM PHYSICAL BIOCHEMIST Gender Identity Not on file Sexual Orientation [...] on filedocumented in this encounter Care Teams Marine Equipment Preservation Inspector Relationship Specialty Start Date End Date Chandler Geronimo DO PCP - General Family Medicine 06/07/21 documented as of this encounter
--- OUTSIDE RECORDS SUMMARY | 2025-05-25 09:36 | XMS_ITS | Encounter Summary ---
Author Organization [facility] Address [address] [place] [address] Care Team Providers Care Supervisor Rice Milling Name Role Phone Chandler Geronimo DO Primary Care Provide r Encounter Details Date Type Department Care Team (Late st Contact Info) Description 10/21/2022 Therapy Plan [facility] Infusion Services [place] [id number] David Hamilton MD [address] [facility] [place] [phone] Social History Tobacco Use Types Packs/Day Years [...] declined 10/10/2022 How often do you attend cheondoism or anabaptist serv ices? Patient declined 10/10/2022 Do you belong to any clubs o r organizations such as cheondoism groups, unions, fraternal or athletic groups, or [...] Recorded Patient Health Questionnaire-2 Score 0 10/21/2022 [facility] - Occupational [...] place to sleep or slept in a [place] facility (including now)? No 10/10/2022 Sex and Gender Information Value Date Recorded Sex Assigned at Male 07/22/2024 2:00 PM BODY RECALL INSTRUCTOR Legal Sex Male 2:48 PM BODY RECALL INSTRUCTOR Gender Identity Not on file Sexual [...] as of this encounter Care Teams Supervisor Rice Milling Relationship Specialty Start Date End Date Chandler Geronimo DO [address] [place] [phone] PCP - General FAMILY PRACTICE 05/29/21 documented as of this encounter
--- OUTSIDE RECORDS SUMMARY | 2025-05-25 09:36 | XMS_ITS | Encounter Summary ---
Author Organization [facility] Address [address] [place] [address] Care Team Providers Care Commercial Energy Rater Name Role Phone Chandler Geronimo DO Primary Care Provide r Encounter Details Date Type Department Care Team (Late st Contact Info) Description 07/28/2024 [email or web address] Message Enc [facility] [address] [phone] Filippo, [facility] Provider Orders Social History Tobacco Use Types Packs/Day Years Used Date Smoking Tobacco: Never Smokeless Tobacco: Never Alcohol Use Standard Drinks/Week Comments Never 0 (1 standard drink = 0.6 oz pur e alcohol) [facility] Utilities Answer Date Recorded In the past 12 months has [facility] [employer], oil, or water [employer] threatened to shut off services in your [...] How often do you attend zoroastrian or baptist serv ices? Patient declined 10/10/2022 [...] Recorded Patient Health Questionnaire-2 Score 0 07/26/2024 [facility] Occupat ional Health - [...] any time in the past 12 m [facility], were you homeless or living in a chcf (including now)? 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
--- OUTSIDE RECORDS SUMMARY | 2025-05-25 09:36 | XMS_ITS | Encounter Summary ---
Author Organization [facility] Address [address] [place] [address] Care Team Providers Care Hardware Design Engineer Name Role Phone Chandler Geronimo DO Primary Care Provide r Encounter Details Date Type Department Care Team (Late st Contact Info) Description 09/01/2024 MyChart Message Enc [facility] Multispecialty Care - [facility], [facility] [address] [place] [address] David Hamilton MD 3 [facility], [facility] [address] [place] [address] question Social History Tobacco Use Types Packs/Day Years Used Date Smoking Tobacco: Never Smokeless Tobacco: Never Alcohol Use Standard Drinks/Week Comments Never 0 (1 standard drink = 0.6 oz pur e alcohol) [facility] Utilities Answer Date Recorded In the [...] How often do you attend sikhism or jehovah's witness serv ices? 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
--- OUTSIDE RECORDS SUMMARY | 2025-05-25 09:37 | XMS_ITS | Clinical Summary ---
Author Organization [facility] [employer] Address [address] [facility] [place] [address] Care Team Providers Care Intermodal Customer Service Name Role Phone Unavailable Primary Care Provider Unavailabl e Source Comments [facility] [employer],non-owned Affiliates and Associated Physician Practices is amultiple site organization consisting of ambulatory clinics and hospital sitesin [place], [place], [place] and [place]. This disclosure is being madepursuant to the Care Everywhere program and may not contain all information available regarding this patient. Last updated 18.[facility] [employer] Allergies No known active allergies Medications * [...] on file Legal Sex Male 11:54 AM EMPLOYEE COUNSELOR Gender Identity Not on file Sexual Orientation Not on file Last Filed Vital Signs Vital Sign Reading Time Taken Comments Blood Pressure 113/89 06/17/2011 5:40 PM EMPLOYEE COUNSELOR Pulse 67 06/17/2011 9:53 PM EMPLOYEE COUNSELOR Temperature 36.3 C (97.3 F) 06/17/2011 5:40 PM EMPLOYEE COUNSELOR Respiratory Rate 16 06/17/2011 5:40 PM EMPLOYEE COUNSELOR Oxygen Saturation 95% 06/17/2011 9:53 PM EMPLOYEE COUNSELOR Inhaled Oxygen Concentration - - Weight 91.6 kg (202 lb) 06/17/2011 5:40 PM EMPLOYEE COUNSELOR Height 177.8 cm (5' 10) 06/17/2011 5:40 PM EMPLOYEE COUNSELOR Body Mass Index 28.98 06/17/2011 5:40 PM EMPLOYEE COUNSELOR Plan of Treatment Health Maintenance Due Date [...] of Phone Billing Address Personal/Family Self 1950 [phone] (Work) [address] [place] [address] AETNA MEDICARE ADV MEDICAID [place] Advance Directives * FULL RESUSCITATION (Latest Code Status on File) Date Activated Date Inactivated Comments 11/20/2010 1:48 PM 11/21/2010 5:57 AM
--- OUTSIDE RECORDS SUMMARY | 2025-05-25 09:37 | XMS_ITS | Encounter Summary ---
Author Organization [facility] Address [address] [place] [address] Care Team Providers Care Windows Software Developer Name Role Phone Chandler Geronimo DO Primary Care Provide r Encounter Details Date Type Department Care Team (Late st Contact Info) Description 07/16/2021 Therapy Plan [facility] Infusion Services [address] [phone] David Hamilton MD 3 [facility], [address] [phone] Social History Tobacco Use Types Packs/Day Years Used Date Smoking Tobacco: Never Smokeless Tobacco: Never Alcohol Use Standard Drinks/Week Comments Never 0 (1 standard drink = 0.6 oz pur e alcohol) Sex and Gender Information Value Date Recorded Sex Assigned at Male 07/22/2024 2:00 PM EXECUTIVE VICE PRESIDENT AND CHIEF FINANCIAL OFFICER Legal Sex Male 2:48 PM EXECUTIVE VICE PRESIDENT AND CHIEF FINANCIAL OFFICER Gender Identity Not on file Sexual Orientation Not on file COVID-19 Exposure Response Date Recorded In the last 10 days, have yo u been in contact with someone who was confirmed or suspected to have Coronavirus/COVID-19? No / Unsure 07/16/2021 3:48 PM EXECUTIVE VICE PRESIDENT AND CHIEF FINANCIAL OFFICER documented as of this encounter Functional Status * RETIRED Are you deaf or do you have serious difficulty hearing Answer Date of Assessment Author Status No 06/13/2021 2:44 AM EXECUTIVE VICE PRESIDENT AND CHIEF FINANCIAL OFFICER Activ e * RETIRED Are you blind or do you have serious difficulty seeing, even when wearing glasses? Answer Date of Assessment Author Status No 06/13/2021 2:44 AM EXECUTIVE VICE PRESIDENT AND CHIEF FINANCIAL OFFICER Activ e * Do you have [...] chronic kidney disease, not on chronic dialysis ([facility]/H[facility])- Primary documented in this encounter Care Teams Windows Software Developer Relationship Specialty Start Date End Date Chandler Geronimo DO [address] [place] [phone] PCP - General FAMILY PRACTICE 05/29/21 documented as of this encounter
--- OUTSIDE RECORDS SUMMARY | 2025-05-25 09:37 | XMS_ITS | Clinical Summary ---
Author Organization [facility] Wong Holliday Address [address] [place] [address] Care Team Providers Care Machine Plaster Mixer Name Role Phone Unavailable Primary Care Provider [...] Department Care Team Description 05/13/2025 Orders Only [facility] Oncology and Hematology - [address] Iron Cunningham MD 05/12/2025 2:15 PM ANIME ARTIST Office Visit [facility] Oncology and Hematology - [address] Iron Cunningham MD Chronic anemia (Primary Dx) 05/10/2025 External Device Data STL ABSTRACTION Provider, Abstract 05/03/2025 External Device Data STL ABSTRACTION Provider, Abstract 04/15/2025 Abstract [facility] Oncology and Hematology - [address] Iron Cunningham MD 04/15/2025 Orders Only [facility] Oncology and Hematology - [address] Iron Cunningham MD 04/14/2025 Orders Only [facility] Oncology and Hematology - [address] [place] [phone] Iron Cunningham MD Chronic anemia (Primary Dx) 04/12/2025 Telephone [facility] Oncology and Hematology - [address] [place] [phone] Iron Cunningham MD Lab questions 04/01/2025 Orders Only [facility] Oncology and Hematology - [address] Radha [address] Iron Cunningham MD 03/31/2025 Telephone [facility] Oncology and Hematology - [address] [place] [phone] Iron Cunningham MD Lab Results 03/23/2025 External [...] Comments Blood Pressure 121/43 05/12/2025 2:14 PM ANIME ARTIST Pulse 64 05/12/2025 2:14 PM ANIME ARTIST Temperature 37 C (98.6 F) 05/12/2025 2:14 PM ANIME ARTIST Respiratory Rate 15 05/12/2025 2:14 PM ANIME ARTIST Oxygen Saturation 93% 05/12/2025 2:14 PM ANIME ARTIST Inhaled Oxygen Concentration - - Weight 79.9 kg (176 lb 3.2 oz) 05/12/2025 2:14 P M ANIME ARTIST Height 177.8 cm (5' 10) 12/16/2024 2:28 PM CDT Body Mass Index 25.28 12/16/2024 2:28 PM CDT Plan of Treatment Upcoming Encounters Date Type Department Care Team (Late st Contact Info) Description 08/11/2025 2:45 PM CDT Office Visit [facility] Oncology and Hematology - [address] [place] [address] Iron Cunningham MD [address] [facility] [address] [place] [address] Health Maintenance Due Date Last [...] CBC WITH AUTODIFFERENTIAL Routine 2024 12:59 PM ANIME ARTIST CBC WITH AUTODIFFERENTIAL Routine 2024 11:02 AM ANIME ARTIST CBC WITH AUTODIFFERENTIAL Routine 2024 11:47 AM CDT from Last 3 Months Results * CBC WITH AUTODIFFERENTIAL (05/12/2025 12:59 PM ANIME ARTIST) Only the most recent of3 resultswithin the time period is included. Blood Iron Cunningham MD HEMATOLOGY ORDERABLES Final Res ult from Last 3 Months Insurance [place] [facility] [place] Address: [facility] [id number] [phone] AETNA HMO MCR
--- OUTSIDE RECORDS SUMMARY | 2025-05-25 09:37 | XMS_ITS | Clinical Summary ---
Author Organization [facility] Address [address] [place] [address] Care Team Providers Care Assistant Director Of Admissions Name Role Phone Chandler Geronimo DO Primary [...] Care Team Description 04/11/2025 3:00 PM MECHANICAL FACILITIES TECHNICIAN Office Visit [facility] Cardiology [address] [place] [address] [place] [phone] North Myers MD Iron deficiency anemia due to chronic blood loss (Primary Dx) 04/04/2025 Orders Only [facility] Cardiac Catheterization Lab [address] [place] [phone] North Myers MD Paroxysmal atrial fibrillation (HCC) (Primary Dx); Contraindication to anticoagulation therapy 04/01/2025 Orders Only [facility] Cardiac Catheterization Lab [address] [place] [address] North Myers MD Paroxysmal atrial fibrillation (HCC) (Primary Dx); Preop cardiovascular exam 03/29/2025 Orders Only [facility] Cardiology [address] [place] [address] [place] [phone] Anika Nielsen NP Dyspnea on exertion 03/29/2025 Telephone [facility] Cardiology [address] [place] [address] [place] [phone] Anika Nielsen NP 03/28/2025 2:30 PM CDT Office Visit [facility] Cardiology [address] [place] [address] [place] [address] [phone] Anika Nielsen NP Dyspnea on exertion (Primary Dx); Anemia due to chronic kidney disease, on chronic dialysis (HCC); Pulmonary hypertension (HCC); History of recent pneumonia; Encounter for anticoagulation discussion and counseling; Paroxysmal atrial fibrillation (HCC) 03/28/2025 Telephone [facility] Cardiology [address] [place] [address] [place] [phone] North Myers MD 03/25/2025 Results Follow-Up [facility] Cardiology [address] [facility] [address] [place] [phone] Corinne Walter RN Transthoracic Echo (TTE) Limited/Followup 03/24/2025 1:00 PM CDT Ancillary Procedure [facility] Cardiology [address] [place] [address] [address] [place] [phone] Pericardial effusion 03/22/2025 1:30 PM CDT Ancillary Procedure [facility] Cardiology [address] [place] [address] [address] [place] [phone] Paroxysmal atrial fibrillation (HCC) 03/16/2025 Telephone [facility] Cardiology [address] [place] [address] [address] [place] [phone] North Myers MD LAAO from Last 3 Months Medical History Medical History Date Comments Hypertension Covid-19 Social History Tobacco Use Types Packs/Day Years Used Date Smoking Tobacco: Former Cigarettes Tobacco Cessation:Counseling Given: Not Answered Sex and Gender Information Value Date Recorded Sex Assigned at Not on file Legal Sex Male 5:28 PM MECHANICAL FACILITIES TECHNICIAN Gender Identity Not on file Sexual Orientation Not on file Last Filed Vital Signs Vital Sign Reading Time Taken Comments Blood Pressure 140/60 04/11/2025 2:59 PM MECHANICAL FACILITIES TECHNICIAN Pulse 67 04/11/2025 2:59 PM MECHANICAL FACILITIES TECHNICIAN Temperature 36.8 C (98.2 F) 06/07/2021 3:50 PM MECHANICAL FACILITIES TECHNICIAN Respiratory Rate 16 01/20/2025 1:13 PM CDT Oxygen Saturation 99% 04/11/2025 2:59 PM MECHANICAL FACILITIES TECHNICIAN Inhaled Oxygen Concentration - - Weight 80.7 kg (178 lb) 04/11/2025 2:59 PM MECHANICAL FACILITIES TECHNICIAN Height 175.3 cm (5' 9) 04/11/2025 2:59 PM MECHANICAL FACILITIES TECHNICIAN Body Mass Index 26.29 04/11/2025 2:59 PM MECHANICAL FACILITIES TECHNICIAN Plan of Treatment Health Maintenance Due Date [...] Routine 03/24/2025 1:44 PM CDT Pericardial effusion EXTENDED/CARE HOME HOLTER PATCH (>48 HOURS UP TO 7 [...] PM CDT Narrative 03/24/2025 3:58 PM CDT [facility] Cardiology [address] [facility] [address] [phone] [facility] [address], [place] [address] P:[phone] P:[phone] Echocardiographic Report Patient Name: JAYLEEN VERONICA : 1950 Study Date: 03/24/2025 1:13:29 PM Sex: M Tool Polisher: Mildred Pinzon)(CT), [facility] Location: [place] Ref Provider: NORTH MYERS Height(Cm): 175 BSA: [...] FINDINGS: Interpretation Site: Exam was interpreted at [facility]. Left Ventricle: Normal left ventricular systolic function. [...] Procedure Note Amado Estes MD - 03/24/2025 [facility] Cardiology [address] [facility] [address], [place] [address] [address] [facility] [address] [address] P:[phone] P:[phone] Echocardiographic Report Patient Name: JAYLEEN VERONICA : 1950 Study Date: 03/24/2025 1:13:29 PM Sex: M Tool Polisher: Mildred Fischer (Robe)(CT), [facility] Location: [place] Ref Provider: NORTH MYERS Height(Cm): 175 BSA: [...] FINDINGS: Interpretation Site: Exam was interpreted at [facility]. Left Ventricle: Normal left ventricular systolic function. [...] Electrocardiogra phy Narrative 04/05/2025 11:07 AM MECHANICAL FACILITIES TECHNICIAN AMBULATORY LANG PATH THERAPIST REPORT Patient Name: Jayleen Gamez Date of [...] was used to complete this document, therefore, tip bander variances may occur. Procedure Note North Myers MD - 04/05/2025 AMBULATORY LANG PATH THERAPIST REPORT Patient Name: Jayleen Gamez Date of [...] software was used to complete this document, therefore,tip bander variances may occur. North Myers MD CV CARDIAC SERVICES PROCEDURES F inal Result from Last 3 Months Insurance AETNA MEDICARE GOLD Care Teams Assistant Director Of Admissions Relationship Specialty Start Date End Date Chandler Geronimo DO PCP - General Family Medicine 06/07/21
--- OUTSIDE RECORDS SUMMARY | 2025-05-25 09:37 | XMS_ITS | Encounter Summary ---
Author Organization [facility] Address [address] [place] [address] Care Team Providers Care Hims Coder Name Role Phone Chandler Geronimo DO Primary Care Provide r Encounter Details Date Type Department Care Team (Late st Contact Info) Description 01/10/2022 Therapy Plan [facility] Infusion Services [address] [phone] David Hamilton MD 3 [facility], [address] [phone] Social History Tobacco Use Types Packs/Day Years [...] Sex Assigned at Male 07/22/2024 2:00 PM FREEZER TUNNEL OPERATOR Legal Sex Male 2:48 PM FREEZER TUNNEL OPERATOR Gender Identity Not on file Sexual [...] Assessment Author Status No 06/13/2021 2:44 AM FREEZER TUNNEL OPERATOR Activ e * RETIRED Are you blind or do you have serious difficulty seeing, even when wearing glasses? Answer Date of Assessment Author Status No 06/13/2021 2:44 AM FREEZER TUNNEL OPERATOR Activ e * Do you have [...] documented as of this encounter Care Teams Hims Coder Relationship Specialty Start Date End Date Chandler Geronimo DO [address] [place] [phone] PCP - General FAMILY PRACTICE 05/29/21 documented as of this encounter
--- OUTSIDE RECORDS SUMMARY | 2025-05-25 09:37 | XMS_ITS | Encounter Summary ---
Author Organization [facility] Address [address] [place] [address] Care Team Providers Care Beef Ribber Name Role Phone Chandler Geronimo DO Primary Care Provide r Reason for Referral * Surgical (Routine) - New Request Specialty Diagnoses / Procedures Referred By Hazel t Referred To Contact Diagnoses ESRD (end stage renal disease) on dialysis ([facility]) Procedures Case request operating room: BRACHIAL CEPHALIC ARTERIOVENOUS FISTULA OR TRANSPOSITION BASILIC VEIN (LEFT ARM) Layton Herrera MD [facility]. [facility] [address] [place] [address] Phone: tel: fax: Referral ID Status Reason Start Date Expiration Date V isits Requested Visits Authorized [id number] New Request 06/01/2024 06/01/2025 1 1 E DYER Encounter Details Date Type Department Care Team (Late st Contact Info) Description 06/01/2024 Prep for Procedure [facility] [place] [address] [place] [address] Layton Herrera MD [facility]. [facility] [address] [place] [address] Social History Tobacco Use Types Packs/Day Years Used Date Smoking Tobacco: Never Smokeless Tobacco: Never Alcohol Use Standard Drinks/Week Comments Never 0 (1 standard drink = 0.6 oz pur e alcohol) [facility] Utilities Answer Date Recorded In the [...] How often do you attend christianity or taoist serv ices? Patient declined 10/10/2022 [...] Recorded Patient Health Questionnaire-2 Score 0 01/05/2024 [facility] [place] of Occupat ional Health - Occupational Stress [...] in a long-term (including now)? No 10/10/2022 Housing Stability Vital Sign Answer [place] e Recorded In the last 12 months, was t here a time when you were not able to pay the mortgage or rent on time? No 05/28/2024 In the past 12 months, how m any times have you moved where you were living? 0 05/28/2024 At any time in the past 12 m [facility], were you homeless or living in a long-term (including now)? 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 Author Patient will return to prior living situation and remain independent in ADLs upon discharge from hospital General Aline Russell, RN Health - patient able to perform ADLs independently Lifestyle No El Vaughn, tool and die maker level five - family caregiver with be involved in care transitions and discharge planning Lifestyle No Abby Eng RN documented as of this encounter Visit Diagnoses Diagnosis ESRD (end stage renal disease) on dialysis ([facility])- Primary End stage renal disease documented in this encounter Additional Health Concerns Assessment Noted Time PHQ-9 Depression Total Score: 0 03/14/20 22 3:10 PM CDT documented as of this encounter Care Teams Beef Ribber Relationship Specialty Start Date End Date Chandler Geronimo DO [address] [place] [phone] PCP - General FAMILY PRACTICE 05/29/21 documented as of this encounter
[2025-05-25 09:59] LABS: Immature Granulocyte Percent A 0.5 % (0-0.5); Lymphocytes Absolute Auto 0.67 K/mm3 (0.9-3.2); Mean Corpuscular HGB Conc 30.2 g/dl (32-36); Mean Corpuscular Hemoglobin 31.9 pg (26-34); Mean Corpuscular Volume 105.6 fl (80-100); Nucleated Red Blood Cells Absolute Auto 0.000 K/mm3 (0.0-0.012); Nucleated Red Blood Cells Perc 0.0 % (0.0-0.2); Platelet Count Result 236 k/mm3 (150-375); Red Blood Count 1.60 M/mm3 (4.6-6.20); White Blood Count 6.2 K/mm3 (4.5-10.0)
[2025-05-25 10:04] LABS: Hematocrit 16.9 % (42.0-52.0); Hemoglobin 5.1 g/dL (14.0-18.0)
[2025-05-25 10:09] LABS: INR 1.2; Prothrombin Time 15.1 Seconds (11.1-14.7)
[2025-05-25 10:10] LABS: Anisocytosis 1+; Hypochromasia Occasional; Partial Thromboplastin Time 31.0 Seconds (22.3-36.8)
[2025-05-25 10:11] LABS: Macrocytosis 1+ (NORMAL); Ovalocytes Occasional
[2025-05-25 10:12] LABS: Basophilic Stippling Occasional; Schistocytes Rare
[2025-05-25 10:28] LABS: Alanine Aminotransferase 38 U/L (6-50); Albumin Level 3.1 g/dL (3.5-5.1); Alkaline Phosphatase 226 U/L (38-126); Anion Gap 8 mmol/L (4-12); Aspartate Amino Transferase 28 U/L (17-59); Bilirubin,Total 0.3 mg/dL (0.2-1.3); Blood Urea Nitrogen 86 mg/dL (9-20); Calcium 9.3 mg/dL (8.4-10.2); Carbon Dioxide 28 mmol/L (22-30); Chloride 102 mmol/L (98-107); Estimated CRCL calculation 7 ml/min; Estimated Glomerular Filt Rate 7; Glucose 122 mg/dL (65-110); Potassium 4.5 mmol/L (3.4-5.0); Sodium 138 mmol/L (137-145); Total Protein 5.7 g/dL (6.3-8.2)
[2025-05-25 10:30] LABS: Influenza A QL RT-PCR Negative (Negative); Influenza B QL RT-PCR Negative (Negative); RSV RNA, RT-PCR Negative (Negative); SARS-CoV-2 RNA PCR Negative (Negative)
[2025-05-25] MEDS: SODIUM CHLORIDE 0.9% IV 250 ML 30 ML IV CONT (11:38)
[2025-05-25] MEDS: TUBING, BLOOD SET 1 EACH XX (13:17)
== END 2025-05-25 17:25 | disposition home or self-care (01) ==
PROVIDERS: Emergency Provider Physician Assistant
DX: D64.9 Anemia, unspecified (principal); E11.22 Type 2 diabetes mellitus with diabetic chronic kidney disease; N18.6 End stage renal disease; Z99.2 Dependence on renal dialysis; I50.30 Unspecified diastolic (congestive) heart failure; I13.2 Hypertensive heart and chronic kidney disease with heart failure and with stage 5 chronic kidney disease, or end stage renal disease; I48.91 Unspecified atrial fibrillation; Z87.891 Personal history of nicotine dependence; Z20.822 Contact with and (suspected) exposure to COVID-19
CPT/HCPCS: 36415; 36430; 71046; 80053; 85025; 85610; 85730; 86850; 86900; 86901; 86923; 87637; 93005; 96360; 96361; 99285; J7050; P9016